=== PATIENT | female | born 1970 | race Caucasian/White ===

== ENCOUNTER → 2016-10-02 | Outpatient (CLI) | payer MEDICARE, OTHER ==
--- NOTE | 2016-10-02 14:10 | CT ---
EXAMINATION TYPE: CT brain wo con DATE OF EXAM: 10/02/2016 1:42 PM COMPARISON: NONE HISTORY: 45-year-old female with headache, sudden onset TECHNIQUE: Examination was done in axial plane without intravenous contrast. Coronal and sagittal reconstructio ns performed. CT DLP: 1081.60 mGycm Automated exposure control for dose reduction was used. FINDINGS: There is no evidence of acute intracranial hemorrhage, acute ischemic changes, mass, mass-effect, or extra-axial fluid collection. There is no effacement of cerebral sulci or basal subarachnoid cister ns. There is no hydrocephalus. There is no midline shift. Mir-white matter distinction is preserv ed. Partially empty sella. Incidental megacisterna magna. There is mild generalized supratentorial volume loss with redemonstrated areas of encephalomalacia within the left greater than right temporal lobes . Mild mucosal thickening along the floors of the maxillary sinuses. Mastoid air cells are well pneumat ized. Orbits and globes are intact. IMPRESSION: No acute intracranial abnormality seen. Similar mild generalized atrophy and areas of encephalomalaci a within the left greater than right temporal lobe suggesting prior vascular or traumatic insults.
== END | disposition home or self-care (01) ==
LOC: RADCTMAIN 13:13
PROVIDERS: ATTEND Family Medicine
DX: G31.9 Degenerative disease of nervous system, unspecified (principal); G93.89 Other specified disorders of brain
CPT/HCPCS: 70450

== ENCOUNTER 2017-10-17 16:11 | Emergency (ER) | payer MEDICARE, OTHER ==
[2017-10-17 16:32] VITALS: BP 135/72; PULSE 82; RESP 20; TEMP 97.6
[2017-10-17] MEDS ORDERED: KETOROLAC 30 MG/ML 1 ML VIAL IM STA (17:28)
--- NOTE | 2017-10-17 17:38 | ED ---
General Adult HPI - General Chief complaint: Headache Stated complaint: Back Pain, Head Pain Time Seen by Provider: 10/17/17 16:42 Source: patient Mode of arrival: ambulatory Limitations: no limitations - History of Present Illness Initial comments: patient is a 46 year old female presents with a chief complaint of a headache for 2 days. 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 The patient walks with a cane at baseline. The patient states that over the last 2 days, headache is gotten gradually worse. She describes a frontal headache that feels a pressure. There are no aggravating or alleviating factors. Timing is constant. On initial exam, patient is tearful, when questioned about why she is crying the patient states that she "wants things to be how they used to be". She further states that she has been depressed recently because her and her daughters do not along. The patient denies any suicidal or homicidal ideations at this time. - Related Data Home Medications Medication Instructions Recorded Confirmed Atorvastatin [Lipitor] 20 mg PO HS 07/23/14 10/17/17 Hydrochlorothiazide [Hydrodiuril] 50 mg PO DAILY 07/23/14 10/17/17 Dextroamphetamine/Amphetamine 20 mg PO DAILY 10/17/17 10/17/17 [Adderall] Potassium Chloride [Klor-Con 20] 20 meq PO DAILY 10/17/17 10/17/17 levETIRAcetam [Keppra] 500 mg PO DAILY 10/17/17 10/17/17 Previous Rx's Medication Instructions Recorded Fluticasone Nasal Bowman [Flonase 2 spr EA NOSTRIL DAILY #1 bottle 10/17/17 Nasal Bowman] Naproxen 500 mg PO BID #20 tablet 10/17/17 Allergies Allergy/AdvReac Type Severity Reaction Status Date / Time No Known Allergies Allergy Verified 10/17/17 17:46 Review of Systems ROS Statement: Those systems with pertinent positive or pertinent negative responses have been documented in the HPI. ROS Other: All systems not noted in ROS Statement are negative. Neurological: Reports: headache, abnormal gait (patient walks with a cane secondary to a traumatic brain injury) Past Medical History Past Medical History: Chest Pain / Angina, COPD, CVA/TIA, Memory Impairment, Neurologic Disorder, Seizure Disorder Additional Past Medical History / Comment(s): Pt has history of brain injury following fall down flight of stairs in 2010.States she had a stroke following the brain injury. had rt sided weakness.in december 2013 in with atypical c/p-neg cardiac workup. pt states is on seizure meds, but has never had a seizure. History of Any Multi-Drug Resistant Organisms: None Reported Past Surgical History: Section, Tonsillectomy, Tubal Ligation Additional Past Surgical History / Comment(s): trach and reversal Past Anesthesia/Blood Transfusion Reactions: No Reported Reaction Past Psychological History: Anxiety Smoking Status: Current every day smoker Past Alcohol Use History: None Reported Past Drug Use History: None Reported General Exam Limitations: no limitations General appearance: alert, in no apparent distress Head exam: Present: atraumatic, normocephalic Eye exam: Present: normal appearance ENT exam: Present: mucous membranes moist, TM's normal bilaterally, other ( patient has rhinorrhea, and tenderness to palpation of the frontal sinuses) Neck exam: Present: normal inspection Respiratory exam: Present: normal lung sounds bilaterally. Absent: respiratory distress Cardiovascular Exam: Present: regular rate, normal rhythm GI/Abdominal exam: Present: soft. Absent: distended, tenderness Rectal exam: Present: deferred Back exam: Present: normal inspection Neurological exam: Present: alert, oriented X3, other (patient is somewhat limited with gait however she is able to do so in the exam room without assistance. Strength and sensation is equal in bilateral upper and lower extremities. Neuro exam is nonfocal) Psychiatric exam: Present: normal affect, depressed Skin exam: Present: warm, dry, intact Course Vital Signs 10/17/17 16:28 Temperature 97.6 F Pulse Rate 82 Respiratory 20 Rate Blood Pressure 135/72 O2 Sat by Pulse 100 Oximetry Medical Decision Making - Medical Decision Making patient is a 46-year-old female presents with chief complaint headache 2 days. On initial evaluation, vital signs are stable, patient is an minor distress secondary to pain. History of physical examination are most consistent with sinus headache as patient does have some rhinorrhea as well. There is some erythema of the nasal turbinates. Patient has tenderness to palpation of the frontal sinuses. Further discussion with the patient leads me to believe that the patient is depressed. She does not have any overt suicidal or homicidal intentions however the patient is very tearful on exam. 7:04 PM Patient was evaluated by EPS nurse. The decision was made to have the patient follow up outpatient for her symptoms of depression. This time it do not believe the patient is a danger to herself or others around her. Regarding the patient's headache, this is likely a viral sinusitis. She was prescribed Flonase, naproxen. Patient was instructed to follow up with primary care or return to the emergency department if her symptoms worsen or change in any way. Disposition Clinical Impression: Sinusitis Disposition: HOME SELF-CARE Condition: Good Instructions: Acute Headache (ED), Sinusitis (ED) Prescriptions: Fluticasone Nasal Bowman [Flonase Nasal Bowman] 2 spr EA NOSTRIL DAILY #1 bottle Naproxen 500 mg PO BID #20 tablet Referrals: Chris Bocanegra MD [Primary Care Provider] - 1-2 days
== END 2017-10-17 19:20 | disposition home or self-care (01) ==
LOC: EEVIPCON 16:11 → EC 16:11
DX: J32.9 Chronic sinusitis, unspecified (principal); F32.9 Major depressive disorder, single episode, unspecified; G40.909 Epilepsy, unspecified, not intractable, without status epilepticus; F17.200 Nicotine dependence, unspecified, uncomplicated; Z86.73 Personal history of transient ischemic attack (TIA), and cerebral infarction without residual deficits; Z79.899 Other long term (current) drug therapy
CPT/HCPCS: 99284; 96372; 82075; J1885

== ENCOUNTER → 2018-04-26 | Outpatient (CLI) | payer MEDICARE, OTHER ==
--- NOTE | 2018-04-26 10:48 | XR ---
EXAMINATION TYPE: XR lumbosacral spine min 4V DATE OF EXAM: 04/26/2018 CLINICAL HISTORY: Low back pain TECHNIQUE: Frontal, lateral, and oblique images of the lumbar spine are obtained. COMPARISON: None FINDINGS: There are 5 lumbar type vertebral bodies identified. The lumbar spine shows dextroconvex scoliosis centered at L3-L4 level without evidence of acute fracture or dislocation. Vertebral body h eights and disk space heights are within normal limits. Mild to moderate multilevel anterior spurring most prominent superior L4 endplate is noted. The oblique images appear within normal limits. Ther e is overlying umbrella filter in the IVC and right L1-L2 level. Cholecystectomy clips are noted. IMPRESSION: As above .
== END | disposition home or self-care (01) ==
LOC: RADXRMAIN 09:34
PROVIDERS: ATTEND Family Medicine
DX: M41.9 Scoliosis, unspecified (principal); M46.06 Spinal enthesopathy, lumbar region; Z98.890 Other specified postprocedural states
CPT/HCPCS: 72110

== ENCOUNTER → 2018-08-30 | Outpatient (CLI) | payer MEDICARE, OTHER ==
--- NOTE | 2018-08-30 12:11 | XR ---
EXAMINATION TYPE: XR scoliosis survey DATE OF EXAM: 08/30/2018 COMPARISON: 04/26/2018 HISTORY: Check for scoliosis. Back pain. TECHNIQUE: Frontal and lateral views of the thoracolumbar spine were obtained FINDINGS: As seen on the prior exam of 04/26/2018 there is a dextroconvex scoliosis of the lumbar spin e again centered at L3-L4. This is not a rotatory with a Browne angle of 8 degrees. Inferior vena cava filter is incidentally noted. Moderate multilevel degenerative changes of both the thoracolumbar and lumbosacral spine are present. No focal consolidation is seen within the lungs. No hemivertebrae are identified. No compression deformities within the thoracic or lumbar spine. Bowel gas pattern is nono bstructive. IMPRESSION: Redemonstration of a mild dextroscoliotic curvature of the lumbar spine with a Browne angle 8 degrees and moderate multilevel degenerative change of both the thoracic and lumbar spine.
== END | disposition home or self-care (01) ==
LOC: RADXRMAIN 09:34
PROVIDERS: ATTEND Family Medicine
DX: M41.86 Other forms of scoliosis, lumbar region (principal); M47.815 Spondylosis without myelopathy or radiculopathy, thoracolumbar region
CPT/HCPCS: 72082

== ENCOUNTER 2020-02-29 15:11 | Emergency (ER) | payer MEDICARE, OTHER ==
[2020-02-29] MEDS ORDERED: SODIUM CHLORIDE 0.9% 1,000 ML IV ONE (16:01)
[2020-02-29 16:11] LABS: Basophils % (A) 0 %; Eosinophils # (A) 0.2 k/uL (0-0.7); Eosinophils % (A) 2 %; HCT 39.3 % (34.0-46.0); HGB 12.7 gm/dL (11.4-16.0); Lymphocytes # (A) 2.9 k/uL (1.0-4.8); Lymphocytes % (A) 31 %; MCHC 32.3 g/dL (31.0-37.0); MCV 92.7 fL (80.0-100.0); Mean Platelet Volume 7.7; Monocytes # (A) 0.5 k/uL (0-1.0); Monocytes % (A) 6 %; Neutrophils # (A) 5.5 k/uL (1.3-7.7); Neutrophils % (A) 59 %; Platelet Count 257 k/uL (150-450); RBC 4.24 m/uL (3.80-5.40); RDW 13.9 % (11.5-15.5); WBC 9.3 k/uL (3.8-10.6)
[2020-02-29 16:15] LABS: Appearance,Urine Clear (Clear); Bacteria,Urine Few /hpf; Bilirubin,Urine Negative (Negative); Blood,Urine Negative (Negative); Color,Urine Yellow; Glucose,Urine (UA) Negative (Negative); Hyaline Casts,Urine 1 /lpf (0-2); Ketones,Urine Negative (Negative); Leukocyte Esterase,Urine Small (Negative); Mucus,Urine Moderate /hpf; Nitrite,Urine Negative (Negative); Protein,Urine Trace (Negative); RBC,Urine 2 /hpf (0-5); Specific Gravity,Urine 1.029 (1.001-1.035); Squamous Epithelial Cell,Urine 2 /hpf (0-4); WBC,Urine 5 /hpf (0-5)
[2020-02-29 16:20] LABS: ALT 26 U/L (4-34); AST 23 U/L (14-36); African American GFR (CKD) >90 (>60 ml/min/1.73 sqM); Albumin 4.1 g/dL (3.5-5.0); Alkaline Phosphatase 86 U/L (38-126); Anion Gap 8 mmol/L; Blood Urea Nitrogen 18 mg/dL (7-17); Calcium 9.4 mg/dL (8.4-10.2); Carbon Dioxide 28 mmol/L (22-30); Chloride 103 mmol/L (98-107); Creatine Kinase 88 U/L (30-135); Glucose 97 mg/dL (74-99); Non-African American GFR(CKD) >90 (>60 ml/min/1.73 sqM); Potassium 3.7 mmol/L (3.5-5.1); Sodium 139 mmol/L (137-145); Total Bilirubin 0.2 mg/dL (0.2-1.3); Total Protein 7.2 g/dL (6.3-8.2)
[2020-02-29 16:29] LABS: INR 0.9 (<1.2); Partial Thromboplastin Time 23.3 sec (22.0-30.0); Prothrombin Time 9.4 sec (9.0-12.0)
--- NOTE | 2020-02-29 16:35 | CT ---
EXAMINATION TYPE: CT brain wo con DATE OF EXAM: 02/29/2020 COMPARISON: 10/02/2016 HISTORY: 49-year-old female Weakness, hx of stroke TECHNIQUE: Examination was done in axial plane without intravenous contrast. Coronal and sagittal r econstructions performed. CT DLP: 1137.4 mGycm Automated exposure control for dose reduction was used. FINDINGS: There is no evidence of acute intracranial hemorrhage, acute ischemic changes, mass, mass-effect, or extra-axial fluid collection. There is no effacement of cerebral sulci or basal subarachnoid cister ns. There is no hydrocephalus. There is no midline shift. Mir-white matter distinction is preserv ed. Paranasal sinuses show mild mucosal thickening anterior left ethmoid air cells. Mastoid air cells are well pneumatized. Orbits and globes are intact. Redemonstrated is encephalomalacia within the left temporal lobe. Smaller areas in the right temporal lobe. Some focal hypodensity in the subcortical region of the right frontal lobe is also redemonstra gabe. Partially empty sella. Stable sessile ossification measuring 1.4 cm along the anterior left frontal i nner table of the calvarium. IMPRESSION: Redemonstrated chronic left temporal lobe encephalomalacia and smaller areas within the right tempora l lobe from previous vascular or traumatic insult. No acute intracranial abnormality seen.
--- NOTE | 2020-02-29 16:37 | XR ---
EXAMINATION TYPE: XR chest 2V DATE OF EXAM: 02/29/2020 COMPARISON: 10/31/2014 HISTORY: 49-year-old female with weakness TECHNIQUE: AP and lateral views FINDINGS: Heart upper limits of normal in size. Large patient body habitus with hazy densities over the lungs. Aorta and pulmonary vasculature within normal limits. No consolidation or pleural effusion. IMPRESSION: Large patient body habitus casting hazy densities. No definite acute process allowing for this limita tion.
[2020-02-29] MEDS ORDERED: HYDROcodone/APAP 5-325MG 1 EACH TAB PO STA (17:58)
--- NOTE | 2020-02-29 17:58 | ED ---
Weakness HPI - General Chief complaint: Weakness Stated complaint: right side weakness/headache Time Seen by Provider: 02/29/20 15:15 Source: patient Mode of arrival: ambulatory Limitations: no limitations - History of Present Illness Initial comments: The patient is a 49-year-old female with past history of traumatic brain injury and chronic right-sided weakness present to emergency Department with reported presyncope and generalized weakness. The patient states that she was working outside in the yard all day and does believe that she got dehydrated. States that she came into the house and had mild headache therefore she took a Tylenol. Patient did not realize it was Tylenol PM. Afterward she states she began feeling very fatigued and had a friend or return to the emergency room for evaluation. She denies any new unilateral weakness. Does admit to generalized weakness. Denies vertiginous symptoms but admits to presyncope. No nausea or vomiting. Denies chest pain or shortness of breath. No abdominal pain. Denies fevers or chills. No changes in her bowel or bladder habits. Denies previous history of cardiac disease. There are no alleviating, precipitating or modifying factors - Related Data Home Medications Medication Instructions Recorded Confirmed Hydrochlorothiazide [Hydrodiuril] 50 mg PO DAILY 07/23/14 03/01/20 Dextroamphetamine/Amphetamine 20 mg PO DAILY 10/17/17 03/01/20 [Adderall] levETIRAcetam [Keppra] 500 mg PO DAILY 10/17/17 03/01/20 ARIPiprazole [Abilify] 5 mg PO HS 02/29/20 03/01/20 Potassium Chloride 10 meq PO DAILY 02/29/20 03/01/20 Umeclidinium Brm/Vilanterol Tr 1 puff INHALATION RT-DAILY 02/29/20 03/01/20 [Anoro Ellipta 62.5-25 Mcg INH] Previous Rx's Medication Instructions Recorded Acetaminophen Tab [Tylenol] 650 mg PO Q6HR PRN tab 03/03/20 Aspirin 81 mg PO DAILY chew 03/03/20 Allergies Allergy/AdvReac Type Severity Reaction Status Date / Time cat dander Allergy Rash/Hives Verified 03/01/20 17:33 tomato Allergy Nausea Verified 03/01/20 17:33 Review of Systems ROS Statement: Those systems with pertinent positive or pertinent negative responses have been documented in the HPI. ROS Other: All systems not noted in ROS Statement are negative. Past Medical History Past Medical History: Chest Pain / Angina, COPD, CVA/TIA, Memory Impairment, Neurologic Disorder, Seizure Disorder Additional Past Medical History / Comment(s): Pt has history of brain injury following fall down flight of stairs in 2010.States she had a stroke following the brain injury. had rt sided weakness.in december 2013 in with atypical c/p-neg cardiac workup. pt states is on seizure meds, but has never had a seizure. History of Any Multi-Drug Resistant Organisms: None Reported Past Surgical History: Section, Tonsillectomy, Tubal Ligation Additional Past Surgical History / Comment(s): trach and reversal Past Anesthesia/Blood Transfusion Reactions: No Reported Reaction Past Psychological History: Anxiety Smoking Status: Current every day smoker Past Alcohol Use History: None Reported Past Drug Use History: None Reported General Exam Limitations: no limitations General appearance: alert, in no apparent distress Head exam: Present: atraumatic, normocephalic, normal inspection Eye exam: Present: normal appearance, PERRL, EOMI. Absent: scleral icterus, conjunctival injection, periorbital swelling ENT exam: Present: normal exam, mucous membranes moist Neck exam: Present: normal inspection. Absent: tenderness, meningismus, lymphadenopathy Respiratory exam: Present: normal lung sounds bilaterally. Absent: respiratory distress, wheezes, rales, rhonchi, stridor Cardiovascular Exam: Present: regular rate, normal rhythm, normal heart sounds. Absent: systolic murmur, diastolic murmur, rubs, gallop, clicks GI/Abdominal exam: Present: soft, normal bowel sounds. Absent: distended, tenderness, guarding, rebound, rigid Extremities exam: Present: normal inspection, full ROM, normal capillary refill, other (4/5 muscle strength right leg. 5/5 right arm, left arm, left leg. Weakness in right leg is chronic. ). Absent: tenderness, pedal edema, joint swelling, calf tenderness Back exam: Present: normal inspection Neurological exam: Present: alert, oriented X3, CN II-XII intact Psychiatric exam: Present: normal affect, normal mood Skin exam: Present: warm, dry, intact, normal color. Absent: rash Course Vital Signs 02/29/20 02/29/20 02/29/20 15:13 17:38 18:14 Temperature 98.2 F 98.1 F Pulse Rate 81 71 Respiratory 18 16 Rate Blood Pressure 123/76 117/74 Blood Pressure 113/98 [Left Arm Sitting] Blood Pressure 132/74 [Left Arm Standing] Blood Pressure 113/74 [Left Arm Supine] O2 Sat by Pulse 98 100 Oximetry 02/29/20 18:21 Temperature Pulse Rate 76 Respiratory 16 Rate Blood Pressure 132/89 Blood Pressure [Left Arm Sitting] Blood Pressure [Left Arm Standing] Blood Pressure [Left Arm Supine] O2 Sat by Pulse 99 Oximetry EKG Findings - EKG Comments: EKG Findings:: EKG demonstrates a normal sinus rhythm with a ventricular rate of 69. SD interval 138. QRS 86. QTC of 454. No acute ST segment elevations or depressions concerning for ischemic changes Medical Decision Making - Medical Decision Making Upon arrival patient was placed into room 2. A thorough history and physical was performed. Peripheral IV was established. Laboratory studies were conducted. Because the patient's previous history of traumatic brain injury did recommend a CT of the patient's brain as well as a chest x-ray. 12-lead EKG is unremarkable. Laboratory studies demonstrate small leukocytosis and few bacteria in her urine. CT the patient's brain demonstrates redemonstrated chronic left temporal lobe encephalomalacia with smaller areas within the right temporal lobe from previous vascular traumatic insult with no acute intracranial abnormality. Chest x-ray demonstrates no definite acute process. The patient is reevaluated and feels improved after a liter bolus of normal saline. She is requesting something for her chronic pain and she did miss her dose of home pain medications. The patient is provided with a [place]. Orthostatics were obtained and are negative. At this time discussed diagnosis, differential and treatment options. The patient states she feels improved and is completely home. She is instructed to follow-up with her primary care physician in 2-4 days. Return to the emergency department for any new or worsening symptoms. Patient was in agreement treatment plan she is discharged in stable condition - Lab Data Result diagrams: 02/29/20 15:43 02/29/20 15:43 Lab Results 02/29/20 02/29/20 02/29/20 Range/Units 15:43 15:43 15:43 WBC 9.3 (3.8-10.6) k/uL RBC 4.24 (3.80-5.40) m/uL Hgb 12.7 (11.4-16.0) gm/dL Hct 39.3 (34.0-46.0) % MCV 92.7 (80.0-100.0) fL MCH 30.0 (25.0-35.0) pg MCHC 32.3 (31.0-37.0) g/dL RDW 13.9 (11.5-15.5) % Plt Count 257 (150-450) k/uL Neutrophils % 59 % Lymphocytes % 31 % Monocytes % 6 % Eosinophils % 2 % Basophils % 0 % Neutrophils # 5.5 (1.3-7.7) k/uL Lymphocytes # 2.9 (1.0-4.8) k/uL Monocytes # 0.5 (0-1.0) k/uL Eosinophils # 0.2 (0-0.7) k/uL Basophils # 0.0 (0-0.2) k/uL PT 9.4 (9.0-12.0) sec INR 0.9 (<1.2) APTT 23.3 (22.0-30.0) sec Sodium (137-145) mmol/L Potassium (3.5-5.1) mmol/L Chloride (98-107) mmol/L Carbon Dioxide (22-30) mmol/L Anion Gap mmol/L BUN (7-17) mg/dL Creatinine (0.52-1.04) mg/dL Est GFR (CKD-EPI)AfAm (>60 ml/min/1.73 sqM) Est GFR (CKD-EPI)NonAf (>60 ml/min/1.73 sqM) Glucose (74-99) mg/dL Plasma Lactic Acid Tin (0.7-2.0) mmol/L Calcium (8.4-10.2) mg/dL Total Bilirubin (0.2-1.3) mg/dL AST (14-36) U/L ALT (4-34) U/L Alkaline Phosphatase (38-126) U/L Creatine Kinase (30-135) U/L Troponin I (0.000-0.034) ng/mL NT-Pro-B Natriuret Pep pg/mL Total Protein (6.3-8.2) g/dL Albumin (3.5-5.0) g/dL TSH (0.465-4.680) mIU/L Urine Color Yellow Urine Appearance Clear (Clear) Urine pH 6.0 (5.0-8.0) Ur Specific [place] 1.029 (1.001-1.035) Urine Protein Trace H (Negative) Urine Glucose (UA) Negative (Negative) Urine Ketones Negative (Negative) Urine Blood Negative (Negative) Urine Nitrite Negative (Negative) Urine Bilirubin Negative (Negative) Urine Urobilinogen 4.0 (<2.0) mg/dL Ur Leukocyte Esterase Small H (Negative) Urine RBC 2 (0-5) /hpf Urine WBC 5 (0-5) /hpf Ur Squamous Epith Cells 2 (0-4) /hpf Urine Bacteria Few H (None) /hpf Hyaline Casts 1 (0-2) /lpf Urine Mucus Moderate H (None) /hpf 02/29/20 02/29/20 02/29/20 Range/Units 15:43 15:43 15:43 WBC (3.8-10.6) k/uL RBC (3.80-5.40) m/uL Hgb (11.4-16.0) gm/dL Hct (34.0-46.0) % MCV (80.0-100.0) fL MCH (25.0-35.0) pg MCHC (31.0-37.0) g/dL RDW (11.5-15.5) % Plt Count (150-450) k/uL Neutrophils % % Lymphocytes % % Monocytes % % Eosinophils % % Basophils % % Neutrophils # (1.3-7.7) k/uL Lymphocytes # (1.0-4.8) k/uL Monocytes # (0-1.0) k/uL Eosinophils # (0-0.7) k/uL Basophils # (0-0.2) k/uL PT (9.0-12.0) sec INR (<1.2) APTT (22.0-30.0) sec Sodium 139 (137-145) mmol/L Potassium 3.7 (3.5-5.1) mmol/L Chloride 103 (98-107) mmol/L Carbon Dioxide 28 (22-30) mmol/L Anion Gap 8 mmol/L BUN 18 H (7-17) mg/dL Creatinine 0.65 (0.52-1.04) mg/dL Est GFR (CKD-EPI)AfAm >90 (>60 ml/min/1.73 sqM) Est GFR (CKD-EPI)NonAf >90 (>60 ml/min/1.73 sqM) Glucose 97 (74-99) mg/dL Plasma Lactic Acid Tin 1.2 (0.7-2.0) mmol/L Calcium 9.4 (8.4-10.2) mg/dL Total Bilirubin 0.2 (0.2-1.3) mg/dL AST 23 (14-36) U/L ALT 26 (4-34) U/L Alkaline Phosphatase 86 (38-126) U/L Creatine Kinase 88 (30-135) U/L Troponin I <0.012 (0.000-0.034) ng/mL NT-Pro-B Natriuret Pep pg/mL Total Protein 7.2 (6.3-8.2) g/dL Albumin 4.1 (3.5-5.0) g/dL TSH 1.380 (0.465-4.680) mIU/L Urine Color Urine Appearance (Clear) Urine pH (5.0-8.0) Ur Specific [place] (1.001-1.035) Urine Protein (Negative) Urine Glucose (UA) (Negative) Urine Ketones (Negative) Urine Blood (Negative) Urine Nitrite (Negative) Urine Bilirubin (Negative) Urine Urobilinogen (<2.0) mg/dL Ur Leukocyte Esterase (Negative) Urine RBC (0-5) /hpf Urine WBC (0-5) /hpf Ur Squamous Epith Cells (0-4) /hpf Urine Bacteria (None) /hpf Hyaline Casts (0-2) /lpf Urine Mucus (None) /hpf 02/29/20 Range/Units 15:43 WBC (3.8-10.6) k/uL RBC (3.80-5.40) m/uL Hgb (11.4-16.0) gm/dL Hct (34.0-46.0) % MCV (80.0-100.0) fL MCH (25.0-35.0) pg MCHC (31.0-37.0) g/dL RDW (11.5-15.5) % Plt Count (150-450) k/uL Neutrophils % % Lymphocytes % % Monocytes % % Eosinophils % % Basophils % % Neutrophils # (1.3-7.7) k/uL Lymphocytes # (1.0-4.8) k/uL Monocytes # (0-1.0) k/uL Eosinophils # (0-0.7) k/uL Basophils # (0-0.2) k/uL PT (9.0-12.0) sec INR (<1.2) APTT (22.0-30.0) sec Sodium (137-145) mmol/L Potassium (3.5-5.1) mmol/L Chloride (98-107) mmol/L Carbon Dioxide (22-30) mmol/L Anion Gap mmol/L BUN (7-17) mg/dL Creatinine (0.52-1.04) mg/dL Est GFR (CKD-EPI)AfAm (>60 ml/min/1.73 sqM) Est GFR (CKD-EPI)NonAf (>60 ml/min/1.73 sqM) Glucose (74-99) mg/dL Plasma Lactic Acid Tin (0.7-2.0) mmol/L Calcium (8.4-10.2) mg/dL Total Bilirubin (0.2-1.3) mg/dL AST (14-36) U/L ALT (4-34) U/L Alkaline Phosphatase (38-126) U/L Creatine Kinase (30-135) U/L Troponin I (0.000-0.034) ng/mL NT-Pro-B Natriuret Pep 83 pg/mL Total Protein (6.3-8.2) g/dL Albumin (3.5-5.0) g/dL TSH (0.465-4.680) mIU/L Urine Color Urine Appearance (Clear) Urine pH (5.0-8.0) Ur Specific [place] (1.001-1.035) Urine Protein (Negative) Urine Glucose (UA) (Negative) Urine Ketones (Negative) Urine Blood (Negative) Urine Nitrite (Negative) Urine Bilirubin (Negative) Urine Urobilinogen (<2.0) mg/dL Ur Leukocyte Esterase (Negative) Urine RBC (0-5) /hpf Urine WBC (0-5) /hpf Ur Squamous Epith Cells (0-4) /hpf Urine Bacteria (None) /hpf Hyaline Casts (0-2) /lpf Urine Mucus (None) /hpf Disposition Clinical Impression: Pre-syncope Disposition: HOME SELF-CARE Condition: Stable Instructions (If sedation given, give patient instructions): Near Syncope (ED) Additional Instructions: Please follow up with your primary care doctor. Call tomorrow to make an appointment. Return to the emergency room for any new or worsening symptoms Is patient prescribed a controlled substance at d/c from ED?: No Referrals: Chris Bocanegra MD [Primary Care Provider] - 1-2 days Time of Disposition: 17:58
[2020-02-29 18:15] VITALS: RESP 16; TEMP 98.1
[2020-02-29 18:22] VITALS: BP 132/89; PULSE 76
== END 2020-02-29 18:22 | disposition home or self-care (01) ==
LOC: EC 15:11
DX: G93.89 Other specified disorders of brain (principal); D72.829 Elevated white blood cell count, unspecified; G89.29 Other chronic pain; R55 Syncope and collapse; R53.1 Weakness; F41.9 Anxiety disorder, unspecified; I25.119 Atherosclerotic heart disease of native coronary artery with unspecified angina pectoris; J44.9 Chronic obstructive pulmonary disease, unspecified; G40.909 Epilepsy, unspecified, not intractable, without status epilepticus; I25.2 Old myocardial infarction; F17.200 Nicotine dependence, unspecified, uncomplicated; Z79.899 Other long term (current) drug therapy; Z91.048 Other nonmedicinal substance allergy status; Z91.018 Allergy to other foods; Z86.73 Personal history of transient ischemic attack (TIA), and cerebral infarction without residual deficits
CPT/HCPCS: 36415; 70450; 71046; 80053; 81001; 82550; 83605; 83880; 84443; 84484; 85025; 85610; 85730; 93005; 96360; 99285

== ENCOUNTER 2020-03-01 16:17 | Inpatient (IN) | payer MEDICARE, OTHER ==
[2020-03-01] MEDS: SODIUM CHLORIDE 0.9% 1,000 ML IV SCH (21:16)
[2020-03-01] MEDS: ARIPiprazole 5 MG TAB PO SCH (21:17)
[2020-03-01] MEDS: KETOROLAC 30 MG/ML 1 ML VIAL IVP PRN (21:17)
[2020-03-02] MEDS: SODIUM CHLORIDE 0.9% 1,000 ML IV SCH ×2 (06:13→10:40)
--- NOTE | 2020-03-02 07:38 | XR ---
EXAMINATION TYPE: XR chest 1V portable DATE OF EXAM: 03/02/2020 CLINICAL HISTORY: Difficulty breathing and chest pain. TECHNIQUE: Single AP portable frontal view of the chest is obtained. COMPARISON: Chest x-ray from [address] chest March 13, 2014. FINDINGS: Persistent elevated and slightly eventrated right hemidiaphragm. Mild underlying emphysema tous change without new suspicious focal airspace opacity, pleural effusion, or pneumothorax seen jairo aterally. Cardiac silhouette size stable and within normal limits. Osseous structures are intact. IMPRESSION: Overall stable findings, mild chronic emphysematous change without acute pulmonary proc ess.
[2020-03-02 07:56] LABS: Basophils % (A) 0 %; Eosinophils # (A) 0.2 k/uL (0-0.7); Eosinophils % (A) 2 %; HCT 36.6 % (34.0-46.0); HGB 12.3 gm/dL (11.4-16.0); Lymphocytes # (A) 2.4 k/uL (1.0-4.8); Lymphocytes % (A) 33 %; MCHC 33.7 g/dL (31.0-37.0); MCV 95.1 fL (80.0-100.0); Mean Platelet Volume 8.3; Monocytes # (A) 0.4 k/uL (0-1.0); Monocytes % (A) 6 %; Neutrophils % (A) 57 %; Platelet Count 241 k/uL (150-450); RBC 3.84 m/uL (3.80-5.40); RDW 13.9 % (11.5-15.5); WBC 7.1 k/uL (3.8-10.6)
[2020-03-02 08:05] LABS: Creatine Kinase 87 U/L (30-135)
[2020-03-02 08:07] LABS: ALT 24 U/L (4-34); AST 23 U/L (14-36); African American GFR (CKD) >90 (>60 ml/min/1.73 sqM); Albumin 3.4 g/dL (3.5-5.0); Alkaline Phosphatase 57 U/L (38-126); Anion Gap 7 mmol/L; Blood Urea Nitrogen 12 mg/dL (7-17); Calcium 8.6 mg/dL (8.4-10.2); Carbon Dioxide 26 mmol/L (22-30); Chloride 107 mmol/L (98-107); Glucose 94 mg/dL (74-99); Non-African American GFR(CKD) >90 (>60 ml/min/1.73 sqM); Potassium 4.3 mmol/L (3.5-5.1); Sodium 140 mmol/L (137-145); Total Bilirubin 0.3 mg/dL (0.2-1.3); Total Protein 6.3 g/dL (6.3-8.2)
[2020-03-02 08:18] LABS: Creatine Kinase MB 0.6 ng/mL (0.0-2.4); Troponin I <0.012 ng/mL (0.000-0.034)
[2020-03-02] MEDS: HYDROCHLOROTHIAZIDE 50 MG TAB PO SCH (08:35)
[2020-03-02] MEDS: POTASSIUM CHLORIDE ER 10 MEQ TAB.ER.PRT PO SCH (08:35)
[2020-03-02] MEDS: levETIRAcetam 500 MG TAB PO SCH (08:35)
[2020-03-02] MEDS: NON FORMULARY DRUG (Dextroamphetamine/Amphetamine [Adderall] 20 MG) PO SCH (08:36)
[2020-03-02 09:10] LABS: Appearance,Urine Clear (Clear); Bilirubin,Urine Negative (Negative); Blood,Urine Negative (Negative); Color,Urine Yellow; Glucose,Urine (UA) Negative (Negative); Ketones,Urine Negative (Negative); Leukocyte Esterase,Urine Negative (Negative); Nitrite,Urine Negative (Negative); Protein,Urine Negative (Negative); Specific Gravity,Urine 1.013 (1.001-1.035); Urobilinogen,Urine <2.0 mg/dL (<2.0)
[2020-03-02] MEDS: IPRATROPIUM 0.5 MG/2.5 ML NEBU INHALATION SCH ×4 (09:16→21:26)
[2020-03-02] MEDS: FORMOTEROL FUMARATE 20 MCG/2 ML NEBU INHALATION SCH ×2 (09:16→21:26)
--- NOTE | 2020-03-02 09:32 | HP ---
HISTORY AND PHYSICAL A 49-year-old white female comes in today with some feeling of lightheaded, dizziness with increased weakness to her right arm, right leg, worse than she has ever had it before, feel altered and presyncopal, near syncope. She states she may be dehydrated. She feels extremely weak and has some heaviness in her chest. She is admitted. Cardiology has been called as well as Neurology for worsening right-sided weakness. CAT scan of the head done the day before in the emergency room was negative for any intracranial bleed, so I am going to order an MRI, await for Neurology. We will do a Keppra level and due multiple labs, going to rehydrate her for dehydration and do cardiac workup and pulmonary workup. HOME MEDICINES: At home she takes Abilify 5 mg at night, Adderall 20 mg daily, Perforomist b.i.d., HydroDIURIL 50 daily, Atrovent q.i.d., Keppra 500 daily, potassium 10 mEq daily. History of encephalomalacia within cranial bleed with right-sided weakness in the past, nicotine addiction, COPD, bipolar, ADD. The 14-point review of systems as mentioned above, otherwise, negative. PHYSICAL EXAMINATION: Temperature 98 to 97, respiratory 16 to 18, O2 is 66 to 73, O2 saturation 98% on room air. Blood pressure 108 to 110/70s to 60. CARDIOVASCULAR: S1, S2. LUNGS: Show mild wheeze x4. HEMATOLOGY: Negative Homans. MUSCULOSKELETAL: She has 4/5 strength in right arm, right leg. ABDOMEN: Soft. Distention, obesity. HEMATOLOGY: Negative Homans. ASSESSMENT: Acute neurologic finding and altered mental status with near presyncopal, suspect dehydration, rehydrate her, do neuro workup for worsening right-sided weakness. She says she feels different than she has are felt before. MRI of the brain. Neurology consult. She has had atypical chest pain this morning in the hospital. We are going to get an EKG and Cardiology consult. Run troponins to check her Keppra level. Please see further orders. MMODL / IJN: [id number] /
[2020-03-02] MEDS: ACETAMINOPHEN TAB 325 MG TAB PO PRN (10:38)
[2020-03-02] MEDS: NICOTINE 14MG/24HR PATCH TRANSDERM SCH (10:38)
--- NOTE | 2020-03-02 12:58 | P.CRDCN ---
History of Present Illness History of present illness: HISTORY OF PRESENTING ILLNESS This is a pleasant 49 year old female past medical history significant for closed head injury, seizure disorder, CVA and COPD. She has no prior history of CAD. We have been asked to see her in consultation for chest pain. She is seen and examined resting comfortably in bed in no acute distress. She states at times she feels a vague discomfort in her chest in the mid-sternal region. Not associated with activity or exertion. She has no associated shortness of breath, dizziness palpitations, nausea or vomiting. Awaiting brain MRI and neurology consult. DIAGNOSTICS EKG reveals sinus mechanism with no acute changes. Chest xray reveals mild emphysematous changes. Laboratory data reviewed, cardiac enzymes negative x1, d-dimer 0.26. Current daily cardiac medications include hydrochlorothiazide 50 mg daily. REVIEW OF SYSTEMS At the time of my exam: CONSTITUTIONAL: Denies fever or chills. CARDIOVASCULAR: Denies chest pain, shortness of breath, orthopnea, PND or palpitations. RESPIRATORY: Denies cough. GASTROINTESTINAL: Denies abdominal pain, diarrhea, constipation, nausea or vomiting. MUSCULOSKELETAL: Denies myalgias. NEUROLOGIC: Complains of generalized weakness and fatigue. Denies numbness, tingling. ENDOCRINE: Denies fatigue, weight change, polydipsia or polyurina. GENITOURINARY: Denies burning, hematuria or urgency with micturation. HEMATOLOGIC: Denies history of anemia or bleeding. PHYSICAL EXAMINATION Blood pressure 110/68 heart rate 72 afebrile and maintaining oxygen saturation on room air CONSTITUTIONAL: No apparent distress. Morbidly obese. HEENT: Head is normocephalic. Pupils are equal, round. Sclerae anicteric. Mucous membranes of the mouth are moist. No JVD. No carotid bruit. CHEST EXAMINATION: Lungs are clear to auscultation. No chest wall tenderness is noted on palpation or with deep breathing. HEART EXAMINATION: Bradycardic. Regular rate and rhythm. S1, S2 heard. No murmurs, gallops or rub. ABDOMEN: Soft, nontender. Positive bowel sounds. EXTREMITIES: 2+ peripheral pulses, no lower extremity edema and no calf tenderness. NEUROLOGIC EXAMINATION: Patient is awake, alert and oriented x3. ASSESSMENT Chest pain, atypical. COPD Hypertension History of seizures Chronic nicotine dependence PLAN Chest pain is atypical and clinically does not appear cardiac in nature. She is symptom free at this time. Ongoing medical and neurology evaluation. We will pursue ongoing cardiac evaluation and testing as an outpatient. Smoking cessation recommended. Follow up with Dr. Glass in the office in 2 weeks. Thank you kindly for this consultation. Nurse Practitioner note has been reviewed, I agree with a documented findings and plan of care. Patient was seen and examined. Past Medical History Past Medical History: Chest Pain / Angina, COPD, CVA/TIA, Memory Impairment, Neurologic Disorder, Seizure Disorder Additional Past Medical History / Comment(s): Pt has history of brain injury following fall down flight of stairs in 2010.States she had a stroke following the brain injury. had rt sided weakness.in december 2013 in with atypical c/p-neg cardiac workup. pt states is on seizure meds, but has never had a seizure. History of Any Multi-Drug Resistant Organisms: None Reported Past Surgical History: Section, Tonsillectomy, Tubal Ligation Additional Past Surgical History / Comment(s): trach and reversal Past Anesthesia/Blood Transfusion Reactions: No Reported Reaction Past Psychological History: Anxiety Additional Psychological History / Comment(s): mood disorder Smoking Status: Current every day smoker Past Alcohol Use History: None Reported Past Drug Use History: None Reported Medications and Allergies Home Medications Medication Instructions Recorded Confirmed Type Hydrochlorothiazide [Hydrodiuril] 50 mg PO DAILY 07/23/14 03/01/20 History Dextroamphetamine/Amphetamine 20 mg PO DAILY 10/17/17 03/01/20 History [Adderall] levETIRAcetam [Keppra] 500 mg PO DAILY 10/17/17 03/01/20 History ARIPiprazole [Abilify] 5 mg PO HS 02/29/20 03/01/20 History Potassium Chloride 10 meq PO DAILY 02/29/20 03/01/20 History Umeclidinium Brm/Vilanterol Tr 1 puff INHALATION RT-DAILY 02/29/20 03/01/20 History [Anoro Ellipta 62.5-25 Mcg INH] Allergies Allergy/AdvReac Type Severity Reaction Status Date / Time cat dander Allergy Rash/Hives Verified 03/01/20 17:33 tomato Allergy Nausea Verified 03/01/20 17:33 Physical Exam Vitals: Vital Signs Temp Pulse Pulse Resp BP Pulse Ox 03/02/20 09:30 72 03/02/20 09:19 76 03/02/20 07:05 97.7 F 65 18 110/68 98 03/02/20 05:00 98.4 F 73 18 109/69 98 03/01/20 21:00 98.4 F 66 18 112/75 96 03/01/20 16:55 98.6 F 78 17 108/72 95 Intake and Output 03/01/20 03/02/20 03/02/20 22:59 06:59 14:59 Intake Total 300 1650 Balance 300 1650 Intake: Intake, IV Titration 1200 Amount Sodium Chloride 0.9% 1, 1200 000 ml @ 100 mls/hr IV . Q10H [facility] Rx#:[id number] Oral 300 450 Other: Voiding Method Toilet Toilet # Voids 1 1 Weight 103.6 kg Results 03/02/20 07:19 03/02/20 07:19 Cardiac Enzymes 03/02/20 03/02/20 Range/Units 07:19 07:19 AST 23 (14-36) U/L CK-MB (CK-2) 0.6 (0.0-2.4) ng/mL Troponin I <0.012 (0.000-0.034) ng/mL CBC 03/02/20 Range/Units 07:19 WBC 7.1 (3.8-10.6) k/uL RBC 3.84 (3.80-5.40) m/uL Hgb 12.3 (11.4-16.0) gm/dL Hct 36.6 (34.0-46.0) % Plt Count 241 (150-450) k/uL Comprehensive Metabolic Panel 03/02/20 Range/Units 07:19 Sodium 140 (137-145) mmol/L Potassium 4.3 (3.5-5.1) mmol/L Chloride 107 (98-107) mmol/L Carbon Dioxide 26 (22-30) mmol/L BUN 12 (7-17) mg/dL Creatinine 0.57 (0.52-1.04) mg/dL Glucose 94 (74-99) mg/dL Calcium 8.6 (8.4-10.2) mg/dL AST 23 (14-36) U/L ALT 24 (4-34) U/L Alkaline Phosphatase 57 (38-126) U/L Total Protein 6.3 (6.3-8.2) g/dL Albumin 3.4 L (3.5-5.0) g/dL Current Medications Generic Name Dose Route Start Last Admin Trade Name Freq PRN Reason Stop Dose Admin Acetaminophen 650 mg 03/02/20 10:21 03/02/20 10:38 Tylenol Tab PO 650 mg Q6HR PRN Administration Fever and/ or Mild Pain Aripiprazole 5 mg 03/01/20 21:00 03/01/20 21:17 Abilify PO 5 mg HS [facility] Administration Formoterol Fumarate 20 mcg 03/02/20 08:00 03/02/20 09:16 Perforomist INHALATION 20 mcg RT-BID [facility] Administration Hydrochlorothiazide 50 mg 03/02/20 09:00 03/02/20 08:35 Hydrodiuril PO 50 mg DAILY [facility] Administration Sodium Chloride 1,000 mls @ 100 mls/hr 03/01/20 18:30 03/02/20 10:40 Saline 0.9% IV 100 mls/hr .Q10H [facility] Administration Ipratropium [place] 0.5 mg 03/02/20 08:00 03/02/20 12:20 Atrovent Nebulized INHALATION 0.5 mg RT-QID [facility] Administration Ketorolac Tromethamine 15 mg 03/01/20 20:53 03/01/20 21:17 Toradol IVP 03/05/20 20:53 15 mg Q6HR PRN Administration Pain Levetiracetam 500 mg 03/02/20 09:00 03/02/20 08:35 Keppra PO 500 mg DAILY [facility] Administration Nicotine 1 patch 03/02/20 09:00 03/02/20 10:38 Habitrol 14mg/24hr Patch TRANSDERM 1 patch DAILY [facility] Administration Non-Formulary Medication 20 mg 03/02/20 09:00 03/02/20 08:36 Dextroamphetamine/Amphetamine [Adderall] PO Not Given DAILY [facility] Potassium Chloride 10 meq 03/02/20 09:00 03/02/20 08:35 K-Dur 10 PO 10 meq DAILY [facility] Administration Intake and Output 03/01/20 03/02/20 03/02/20 22:59 06:59 14:59 Intake Total 300 1650 Balance 300 1650 Intake: Intake, IV Titration 1200 Amount Sodium Chloride 0.9% 1, 1200 000 ml @ 100 mls/hr IV . Q10H [facility] Rx#:[id number] Oral 300 450 Other: Voiding Method Toilet Toilet # Voids 1 1 Weight 103.6 kg 03/02/20 07:19 03/02/20 07:19
[2020-03-02 13:00] LABS: Hemoglobin A1C 5.6 % (4.0-6.0)
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
[2020-03-02] MEDS: ASPIRIN 81 MG PO SCH (18:52)
[2020-03-02] MEDS: KETOROLAC 30 MG/ML 1 ML VIAL IVP PRN (20:05)
[2020-03-02] MEDS: ARIPiprazole 5 MG TAB PO SCH (20:05)
[2020-03-02 21:58] VITALS: RESP 18
[2020-03-03] MEDS: SODIUM CHLORIDE 0.9% 1,000 ML IV SCH ×2 (03:54→10:47)
[2020-03-03 06:19] LABS: ALT 25 U/L (4-34); AST 21 U/L (14-36); African American GFR (CKD) >90 (>60 ml/min/1.73 sqM); Albumin 3.1 g/dL (3.5-5.0); Alkaline Phosphatase 55 U/L (38-126); Anion Gap 4 mmol/L; Blood Urea Nitrogen 12 mg/dL (7-17); Calcium 8.4 mg/dL (8.4-10.2); Carbon Dioxide 27 mmol/L (22-30); Chloride 109 mmol/L (98-107); Cholesterol 178 mg/dL (<200); Glucose 93 mg/dL (74-99); HDL Cholesterol 35 mg/dL (40-60); LDL Cholesterol,Calculated 118 mg/dL (0-99); Non-African American GFR(CKD) >90 (>60 ml/min/1.73 sqM); Potassium 4.3 mmol/L (3.5-5.1); Sodium 140 mmol/L (137-145); Total Bilirubin 0.2 mg/dL (0.2-1.3); Total Protein 5.8 g/dL (6.3-8.2); Triglycerides 124 mg/dL (<150)
[2020-03-03] MEDS: FORMOTEROL FUMARATE 20 MCG/2 ML NEBU INHALATION SCH ×2 (07:33→20:13)
[2020-03-03] MEDS: IPRATROPIUM 0.5 MG/2.5 ML NEBU INHALATION SCH ×4 (07:33→20:13)
[2020-03-03] MEDS: NON FORMULARY DRUG (Dextroamphetamine/Amphetamine [Adderall] 20 MG) PO SCH (09:25)
[2020-03-03] MEDS: ASPIRIN 81 MG PO SCH (09:28)
[2020-03-03] MEDS: levETIRAcetam 500 MG TAB PO SCH (09:28)
[2020-03-03] MEDS: POTASSIUM CHLORIDE ER 10 MEQ TAB.ER.PRT PO SCH (09:28)
[2020-03-03] MEDS: NICOTINE 14MG/24HR PATCH TRANSDERM SCH (09:29)
[2020-03-03] MEDS: HYDROCHLOROTHIAZIDE 50 MG TAB PO SCH (09:29)
[2020-03-03] MEDS: KETOROLAC 30 MG/ML 1 ML VIAL IVP PRN (09:35)
[2020-03-03 10:38] LABS: Folate, Serum 7.7 ng/mL
[2020-03-03] MEDS ORDERED: SYMBICORT 80-4.5 MCG INHALER INHALATION STA (11:14)
[2020-03-03 11:48] LABS: Creatine Kinase MB 0.7 ng/mL (0.0-2.4); Troponin I <0.012 ng/mL (0.000-0.034)
--- NOTE | 2020-03-03 12:48 | P.PN ---
Subjective Progress Note Date: 03/03/20 This is a pleasant 49 year old female past medical history significant for closed head injury, seizure disorder, CVA and COPD. She was admitted with right- sided weakness. She was also experiencing atypical chest discomfort. She states this is not associated with exertion. She states it is worse when she rolls from [id number] in bed. It cannot be exacerbated with a cough. REVIEW OF SYSTEMS At the time of my exam: CONSTITUTIONAL: Denies fever or chills. CARDIOVASCULAR: Denies shortness of breath, orthopnea, PND or palpitations. Positive for "ache in chest." RESPIRATORY: Denies cough. GASTROINTESTINAL: Denies abdominal pain, diarrhea, constipation, nausea or vomiting. MUSCULOSKELETAL: Denies myalgias. Positive for sternal discomfort. NEUROLOGIC: Complains of generalized weakness and fatigue. Denies numbness, tingling. ENDOCRINE: Denies fatigue, weight change, polydipsia or polyurina. GENITOURINARY: Denies burning, hematuria or urgency with micturation. HEMATOLOGIC: Denies history of anemia or bleeding. PHYSICAL EXAMINATION Blood pressure 110/68 heart rate 72 afebrile and maintaining oxygen saturation on room air CONSTITUTIONAL: No apparent distress. Morbidly obese. HEENT: Head is normocephalic. Pupils are equal, round. Sclerae anicteric. Mucous membranes of the mouth are moist. No JVD. No carotid bruit. CHEST EXAMINATION: Rhoncherous breath sounds. No chest wall tenderness is noted on palpation or with deep breathing. HEART EXAMINATION: Bradycardic. Regular rate and rhythm. S1, S2 heard. No murmurs, gallops or rub. ABDOMEN: Soft, nontender. Positive bowel sounds. EXTREMITIES: 2+ peripheral pulses, no lower extremity edema and no calf tenderness. NEUROLOGIC EXAMINATION: Patient is awake, alert and oriented x3. ASSESSMENT Chest pain, atypical COPD Hypertension History of seizures Chronic nicotine dependence PLAN Chest discomfort is likely musculoskeletal in nature. No further work-up at this time. Objective - Vital Signs Vital signs: Vital Signs Temp 98.4 F 03/03/20 05:00 Pulse 60 03/03/20 11:26 Resp 18 03/03/20 05:00 BP 116/74 03/03/20 10:43 Pulse Ox 98 03/03/20 10:43 Intake & Output 03/02/20 03/03/20 03/03/20 18:59 06:59 18:59 Intake Total 1000 Balance 1000 Intake: Oral 1000 Other: Voiding Method Toilet Toilet # Voids 2 2 - Labs CBC & Chem 7: 03/02/20 07:19 03/03/20 05:58 Labs: Abnormal Lab Results - Last 24 Hours (Table) 03/03/20 Range/Units 05:58 Chloride 109 H (98-107) mmol/L Total Protein 5.8 L (6.3-8.2) g/dL Albumin 3.1 L (3.5-5.0) g/dL LDL Cholesterol, Calc 118 H (0-99) mg/dL HDL Cholesterol 35 L (40-60) mg/dL
--- NOTE | 2020-03-03 13:11 | PN ---
PROGRESS NOTE This is a white female. She appears to be getting better mental status [place] and neurologically. She is going to have an MRI today at 3 o'clock. Still complains of some atypical chest pain. Cardiology cleared yesterday. We are going to repeat EKG, troponin. Give her Symbicort inhaler 2 puffs to see if that helps her breathing and check for musculoskeletal tenderness on chest well palpation by nurse. Lungs essentially mild wheeze. Cardiovascular S1, S2. Abdomen is soft. Strength is 4/5 right lower leg. ASSESSMENT: 1. Chronic obstructive pulmonary disease exacerbation. 2. Costochondritis, likely. 3. Nicotine addiction. 4. Atypical chest pain. Cardiology to resee the patient. Repeat EKG. As mentioned, give 2 puffs Symbicort. Repeat troponins. MMODL / IJN: [id number] /
[2020-03-03 13:53] VITALS: BP 102/64; PULSE 68; TEMP 98.5
--- NOTE | 2020-03-03 16:11 | MR ---
EXAMINATION TYPE: MR brain wo/w con DATE OF EXAM: 03/03/2020 COMPARISON: CT brain 02/29/2020 HISTORY: Rt sided weakness CONTRAST: Standard multiplanar, multisequence MRI departmental protocol utilizing 10 mL intravenous Gadavist ga dolinium contrast. There is some cerebral cortical atrophy. There is no mass effect nor midline shift. There is no sign of intracranial hemorrhage. On the FLAIR images there is a 6 x 3 cm area of increased signal in the g ray-white matter anterior left temporal lobe consistent with infarct. There is 10 mm focus of increas ed signal on the T2 and FLAIR images in the melendez-white matter junction right posterior frontal lobe. There is a similar focus in the cortex right posterior parietal lobe. The calvarium is intact. Brains tem appears intact. Corpus callosum is intact. Sella turcica appears normal. The contrast images show no pathologic enhancement. The diffusion images show no acute abnormality. IMPRESSION: Old left temporal lobe cortical infarct unchanged. Right posterior frontal lobe lacunar infarct uncha nged. Small cortical infarct right parietal lobe. I do not see evidence for an acute ischemic infarct .
[2020-03-03] MEDS: ACETAMINOPHEN TAB 325 MG TAB PO PRN (16:19)
== END 2020-03-03 18:30 | disposition home or self-care (01) | DRG 641 ==
LOC: 5NMEDONC 16:25
PROVIDERS: ADMIT Family Medicine; ATTEND Family Medicine
DX: E86.0 Dehydration (principal); I69.351 Hemiplegia and hemiparesis following cerebral infarction affecting right dominant side; J44.1 Chronic obstructive pulmonary disease with (acute) exacerbation; G93.89 Other specified disorders of brain; F39 Unspecified mood [affective] disorder; G40.909 Epilepsy, unspecified, not intractable, without status epilepticus; E66.01 Morbid (severe) obesity due to excess calories; Z11.59 Encounter for screening for other viral diseases; M94.0 Chondrocostal junction syndrome [Tietze]; I10 Essential (primary) hypertension; F98.8 Other specified behavioral and emotional disorders with onset usually occurring in childhood and adolescence; M54.5 Low back pain; Z68.31 Body mass index [BMI] 31.0-31.9, adult; F17.210 Nicotine dependence, cigarettes, uncomplicated; Z71.6 Tobacco abuse counseling; Z79.899 Other long term (current) drug therapy; Z87.820 Personal history of traumatic brain injury; Z98.891 History of uterine scar from previous surgery; Z90.89 Acquired absence of other organs; Z98.51 Tubal ligation status; Z91.018 Allergy to other foods; Z91.048 Other nonmedicinal substance allergy status
CPT/HCPCS: 70553; 71045; 80053; 80061; 80177; 81003; 82550; 82553; 82607; 82746; 83036; 83735; 84443; 84484; 85025; 85379; 93005; 94640; 95816

== ENCOUNTER 2020-03-31 11:39 | Observation (INO) | payer MEDICARE, OTHER ==
[2020-03-31] MEDS ORDERED: MORPHINE SULFATE 2 MG/ML SYRINGE IVP STA (11:58)
[2020-03-31] MEDS ORDERED: ASPIRIN 81 MG PO STA (11:58)
--- NOTE | 2020-03-31 12:01 | ED ---
General Adult HPI - General Chief complaint: Chest Pain Stated complaint: Chest Pain Source: patient, RN notes reviewed Mode of arrival: EMS Limitations: no limitations - History of Present Illness Initial comments: 49-year-old female with a past medical history of chest pain, COPD, CVA, seizure disorder, right-sided weakness presents to the emergency department for a chief complaint of chest pain. Patient states this has been on and off for about a week now. Patient states she was seen in [facility] emergency room this morning for this chest pain and it had resolved. She was sent home and the pain started again about one hour ago. Patient reports it as a squeezing pain in the center of her chest. She denies alleviating or aggravating factors. She denies radiating pain. She denies shortness of breath. Patient does have a history of every day smoking. She has a history of chest pain as well. Patient was not given aspirin today.Patient has no other complaints at this time including shortness of breath, chest pain, abdominal pain, nausea or vomiting, headache, or visual changes. - Related Data Home Medications Medication Instructions Recorded Confirmed Hydrochlorothiazide [Hydrodiuril] 50 mg PO DAILY 07/23/14 03/31/20 Dextroamphetamine/Amphetamine 20 mg PO DAILY 10/17/17 03/31/20 [Adderall] levETIRAcetam [Keppra] 500 mg PO DAILY 10/17/17 03/31/20 ARIPiprazole [Abilify] 5 mg PO HS 02/29/20 03/31/20 Potassium Chloride 10 meq PO DAILY 02/29/20 03/31/20 Umeclidinium Brm/Vilanterol Tr 1 puff INHALATION RT-DAILY 02/29/20 03/31/20 [Anoro Ellipta 62.5-25 Mcg INH] Albuterol Inhaler [Ventolin Hfa 1 puff INHALATION RT-QID 03/31/20 03/31/20 Inhaler] Previous Rx's Medication Instructions Recorded Aspirin 81 mg PO DAILY chew 03/03/20 Allergies Allergy/AdvReac Type Severity Reaction Status Date / Time cat dander Allergy Rash/Hives Verified 03/31/20 13:44 tomato Allergy Nausea Verified 03/31/20 13:44 Review of Systems ROS Statement: Those systems with pertinent positive or pertinent negative responses have been documented in the HPI. ROS Other: All systems not noted in ROS Statement are negative. Past Medical History Past Medical History: Chest Pain / Angina, COPD, CVA/TIA, Memory Impairment, Neurologic Disorder, Seizure Disorder Additional Past Medical History / Comment(s): Pt has history of brain injury following fall down flight of stairs in 2010.States she had a stroke following the brain injury. had rt sided weakness.in december 2013 in with atypical c/p-neg cardiac workup. pt states is on seizure meds, but has never had a seizure. History of Any Multi-Drug Resistant Organisms: None Reported Past Surgical History: Section, Tonsillectomy, Tubal Ligation Additional Past Surgical History / Comment(s): trach and reversal Past Anesthesia/Blood Transfusion Reactions: No Reported Reaction Past Psychological History: Anxiety Smoking Status: Current every day smoker Past Alcohol Use History: None Reported Past Drug Use History: None Reported General Exam Limitations: no limitations General appearance: alert, in no apparent distress Head exam: Present: atraumatic, normocephalic, normal inspection Eye exam: Present: normal appearance, PERRL, EOMI. Absent: scleral icterus, conjunctival injection, periorbital swelling ENT exam: Present: normal exam, mucous membranes moist Neck exam: Present: normal inspection, full ROM. Absent: tenderness, meningismus, lymphadenopathy Respiratory exam: Present: normal lung sounds bilaterally. Absent: respiratory distress, wheezes, rales, rhonchi, stridor Cardiovascular Exam: Present: regular rate, normal rhythm, normal heart sounds. Absent: systolic murmur, diastolic murmur, rubs, gallop, clicks GI/Abdominal exam: Present: soft, normal bowel sounds. Absent: distended, tenderness, guarding, rebound, rigid Course Vital Signs 03/31/20 03/31/20 03/31/20 11:47 12:00 12:29 Temperature 98.7 F 98.7 F Pulse Rate 65 63 65 Respiratory 18 16 18 Rate Blood Pressure 98/75 O2 Sat by Pulse 95 96 95 Oximetry 03/31/20 13:15 Temperature Pulse Rate 60 Respiratory 16 Rate Blood Pressure 117/76 O2 Sat by Pulse 97 Oximetry Medical Decision Making - Medical Decision Making Vitals are stable. EKG shows a normal sinus rhythm without evidence of ischemia. Patient was discharged home this morning from [facility] for chest pain. Chest pain recurred about an hour prior to arrival. Describes a squeezing pain. History of CVA and smoking disorder. CBC did reveal leukocytosis of 15.3. White hypokalemia at 3.3, replaced orally. Troponin negative. Patient has not had cardiac workup since 2013. Will be admitted for cardiology evaluation interning troponin. - Lab Data Result diagrams: 03/31/20 12:05 03/31/20 12:05 Lab Results 03/31/20 03/31/20 03/31/20 Range/Units 12:05 12:05 12:05 WBC 15.3 H (3.8-10.6) k/uL RBC 3.90 (3.80-5.40) m/uL Hgb 12.4 (11.4-16.0) gm/dL Hct 36.9 (34.0-46.0) % MCV 94.8 (80.0-100.0) fL MCH 31.9 (25.0-35.0) pg MCHC 33.7 (31.0-37.0) g/dL RDW 14.1 (11.5-15.5) % Plt Count 278 (150-450) k/uL Neutrophils % 63 % Lymphocytes % 29 % Monocytes % 6 % Eosinophils % 1 % Basophils % 0 % Neutrophils # 9.5 H (1.3-7.7) k/uL Lymphocytes # 4.4 (1.0-4.8) k/uL Monocytes # 0.9 (0-1.0) k/uL Eosinophils # 0.1 (0-0.7) k/uL Basophils # 0.1 (0-0.2) k/uL PT 9.8 (9.0-12.0) sec INR 0.9 (<1.2) APTT 22.2 (22.0-30.0) sec Sodium 137 (137-145) mmol/L Potassium 3.3 L (3.5-5.1) mmol/L Chloride 104 (98-107) mmol/L Carbon Dioxide 26 (22-30) mmol/L Anion Gap 7 mmol/L BUN 18 H (7-17) mg/dL Creatinine 0.55 (0.52-1.04) mg/dL Est GFR (CKD-EPI)AfAm >90 (>60 ml/min/1.73 sqM) Est GFR (CKD-EPI)NonAf >90 (>60 ml/min/1.73 sqM) Glucose 93 (74-99) mg/dL Calcium 9.1 (8.4-10.2) mg/dL Magnesium 2.0 (1.6-2.3) mg/dL Total Bilirubin 0.3 (0.2-1.3) mg/dL AST 25 (14-36) U/L ALT 39 H (4-34) U/L Alkaline Phosphatase 68 (38-126) U/L Troponin I (0.000-0.034) ng/mL NT-Pro-B Natriuret Pep pg/mL Total Protein 6.6 (6.3-8.2) g/dL Albumin 3.8 (3.5-5.0) g/dL Amylase 33 (30-110) U/L Lipase 44 (23-300) U/L 03/31/20 03/31/20 Range/Units 12:05 12:05 WBC (3.8-10.6) k/uL RBC (3.80-5.40) m/uL Hgb (11.4-16.0) gm/dL Hct (34.0-46.0) % MCV (80.0-100.0) fL MCH (25.0-35.0) pg MCHC (31.0-37.0) g/dL RDW (11.5-15.5) % Plt Count (150-450) k/uL Neutrophils % % Lymphocytes % % Monocytes % % Eosinophils % % Basophils % % Neutrophils # (1.3-7.7) k/uL Lymphocytes # (1.0-4.8) k/uL Monocytes # (0-1.0) k/uL Eosinophils # (0-0.7) k/uL Basophils # (0-0.2) k/uL PT (9.0-12.0) sec INR (<1.2) APTT (22.0-30.0) sec Sodium (137-145) mmol/L Potassium (3.5-5.1) mmol/L Chloride (98-107) mmol/L Carbon Dioxide (22-30) mmol/L Anion Gap mmol/L BUN (7-17) mg/dL Creatinine (0.52-1.04) mg/dL Est GFR (CKD-EPI)AfAm (>60 ml/min/1.73 sqM) Est GFR (CKD-EPI)NonAf (>60 ml/min/1.73 sqM) Glucose (74-99) mg/dL Calcium (8.4-10.2) mg/dL Magnesium (1.6-2.3) mg/dL Total Bilirubin (0.2-1.3) mg/dL AST (14-36) U/L ALT (4-34) U/L Alkaline Phosphatase (38-126) U/L Troponin I <0.012 (0.000-0.034) ng/mL NT-Pro-B Natriuret Pep 95 pg/mL Total Protein (6.3-8.2) g/dL Albumin (3.5-5.0) g/dL Amylase (30-110) U/L Lipase (23-300) U/L Disposition Clinical Impression: Chest pain Disposition: ADMITTED IP TO THIS HOSP Referrals: Chris Bocanegra MD [Primary Care Provider] - 1-2 days Time of Disposition: 14:26
[2020-03-31 12:24] LABS: Basophils # (A) 0.1 k/uL (0-0.2); Basophils % (A) 0 %; Eosinophils # (A) 0.1 k/uL (0-0.7); Eosinophils % (A) 1 %; HCT 36.9 % (34.0-46.0); HGB 12.4 gm/dL (11.4-16.0); Lymphocytes # (A) 4.4 k/uL (1.0-4.8); Lymphocytes % (A) 29 %; MCH 31.9 pg (25.0-35.0); MCHC 33.7 g/dL (31.0-37.0); MCV 94.8 fL (80.0-100.0); Mean Platelet Volume 8.6; Monocytes # (A) 0.9 k/uL (0-1.0); Monocytes % (A) 6 %; Neutrophils # (A) 9.5 k/uL (1.3-7.7); Neutrophils % (A) 63 %; Platelet Count 278 k/uL (150-450); RDW 14.1 % (11.5-15.5); WBC 15.3 k/uL (3.8-10.6)
[2020-03-31 12:34] LABS: ALT 39 U/L (4-34); AST 25 U/L (14-36); African American GFR (CKD) >90 (>60 ml/min/1.73 sqM); Albumin 3.8 g/dL (3.5-5.0); Alkaline Phosphatase 68 U/L (38-126); Amylase 33 U/L (30-110); Anion Gap 7 mmol/L; Blood Urea Nitrogen 18 mg/dL (7-17); Calcium 9.1 mg/dL (8.4-10.2); Carbon Dioxide 26 mmol/L (22-30); Chloride 104 mmol/L (98-107); Glucose 93 mg/dL (74-99); Non-African American GFR(CKD) >90 (>60 ml/min/1.73 sqM); Potassium 3.3 mmol/L (3.5-5.1); Sodium 137 mmol/L (137-145); Total Bilirubin 0.3 mg/dL (0.2-1.3); Total Protein 6.6 g/dL (6.3-8.2)
[2020-03-31 12:38] LABS: INR 0.9 (<1.2); Partial Thromboplastin Time 22.2 sec (22.0-30.0); Prothrombin Time 9.8 sec (9.0-12.0)
--- NOTE | 2020-03-31 12:41 | XR ---
EXAMINATION TYPE: XR chest 2V DATE OF EXAM: 03/31/2020 COMPARISON: 03/02/2020 INDICATION: Chest pain TECHNIQUE: Frontal and lateral views of the chest are obtained. FINDINGS: The heart size is normal. The pulmonary vasculature is normal. The lungs are clear. IMPRESSION: 1. No acute pulmonary process.
[2020-03-31] MEDS ORDERED: MORPHINE SULFATE 2 MG/ML SYRINGE IVP PRN (14:24)
[2020-03-31] MEDS ORDERED: POTASSIUM CHLORIDE ER 20 MEQ TAB.ER PO STA (14:26)
[2020-03-31] MEDS ORDERED: IPRATROPIUM-ALBUTEROL 3 ML NEB INHALATION PRN (15:36)
[2020-03-31] MEDS: ARIPiprazole 5 MG TAB PO SCH (21:13)
[2020-04-01 03:43] LABS: Cholesterol 209 mg/dL (<200); HDL Cholesterol 35 mg/dL (40-60); LDL Cholesterol,Calculated 129 mg/dL (0-99); Triglycerides 226 mg/dL (<150)
[2020-04-01] MEDS: HYDROCHLOROTHIAZIDE 50 MG TAB PO SCH (08:34)
[2020-04-01] MEDS: levETIRAcetam 500 MG TAB PO SCH (08:34)
[2020-04-01] MEDS: POTASSIUM CHLORIDE ER 10 MEQ TAB.ER.PRT PO SCH (08:34)
[2020-04-01] MEDS ORDERED: ASPIRIN 325 MG TAB PO SCH (09:00)
[2020-04-01] MEDS ORDERED: RX INFO: IV CONTRAST WAS GIVEN 1 EACH MISC MISCELLANE PRN (09:21)
[2020-04-01] MEDS ORDERED: SODIUM CHLORIDE 0.9% 500 ML 250 ML IV ONE (09:40)
--- NOTE | 2020-04-01 09:52 | HP ---
HISTORY AND PHYSICAL 49-year-old white female with severe chest pain, COPD, CVA, seizure disorder, right- sided with atypical chest pain on and off for the past week. Troponins negative x3 sets. Denies any aggravating factors. She has a history of extensive smoking and an intracranial bleed in the past with chronic right-sided weakness. HOME MEDS: Include Keppra 500 mg daily, Abilify 5 mg daily, HydroDIURIL 50 daily, Adderall 20 daily, Anoro Ellipta 200/62.5 25 one puff daily, albuterol inhaler 2 puffs q.4h p.r.n., potassium chloride 10 mEq daily. REVIEW OF SYSTEMS: Fourteen-point review of systems negative except for mentioned in HPI. PAST MEDICAL HISTORY: See old chart. SURGERIES: Tubal ligation, tonsillectomy, , anxiety. Current everyday smoker. PHYSICAL EXAMINATION: Temp 98.7, pulse 60 to 65, respiratory 18-20, blood pressure 98/75, O2 95 to 96. Psych: She appears anxious, nervous, alert, oriented x3. Giving appropriate answers Neurologic: She has right-sided weakness chronically 4/5 strength. Lungs show mild wheezes x4. Cardiovascular: S1, S2. HEENT: Normocephalic, atraumatic. ASSESSMENT: Atypical chest pain. We will do a CT of the chest. Cardiology to evaluate hyperkalemia of 3.3, will be improved. White count 15.3, unclear etiology. I guess we better check a urine culture on her. Await for Cardiology to rule out myocardial infarction. MMODL / IJN: [id number] /
[2020-04-01] MEDS: SODIUM CHLORIDE 0.9% 1,000 ML IV SCH (10:22)
--- NOTE | 2020-04-01 10:32 | CT ---
EXAMINATION TYPE: CT chest w con DATE OF EXAM: 04/01/2020 COMPARISON: 03/13/2014 HISTORY: Chest pain CT DLP: 571.7 mGycm Automated exposure control for dose reduction was used. CONTRAST: CT scan of the chest is performed with IV Contrast, patient injected with 100 ml mL of Isovue 300. FINDINGS: LUNGS: The lungs are grossly clear, there is no concerning parenchymal mass or nodule identified. T here is no pleural effusion or pneumothorax seen. The tracheobronchial tree is patent. Emphysematous changes noted. Linear changes right lung base most typical of atelectasis or scar. MEDIASTINUM: There are no greater than 1 cm hilar or mediastinal lymph nodes. No pericardial effusi on is seen. OTHER: Hypertrophic and degenerative changes of the vertebral column. Low-attenuation throughout the liver suggestive of fatty infiltration. Postcholecystectomy changes noted. IMPRESSION: 1. Correlate for COPD 2. Hepatic steatosis
--- NOTE | 2020-04-01 11:46 | P.CRDCN ---
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 Patient states [place] up all the carpets causing the patient significant shortness of breath and difficulty breathing. Patient states she then presented to [facility] with a COPD exacerbation. Patient states she came back home and she had also had a recent visit to [facility] on March 31 for continued complaints of shortness of breath with chest pain and was released. Reports from [facility] show patient had recent dobutamine stress testing on 03/05/2020 which revealed no ischemia. Patient is a very poor historian. Patient states she gets left breast/chest wall pain and associated shortness of breath with no particular pattern. Most recent chest x-ray WNL. Troponins negative 3. Patient continue sinus rhythm with no acute cardiology process, heart rate 65. Patient does not remember who she has historically followed with for cardiology, was suppose to follow-up with Dr. Glass in office per last visit but failed to do so. Patient is a current every day smoker one pack per day 29 years. Patient states she only currently smokes a few cigarettes per day. Patient also being treated for COPD at home with multiple inhalers. Physical exam within normal limits except for bilateral diminished lungs. Again pt poor historian. 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 PAST SURGICAL HISTORY: See list. EKG = SR, HR 65. No acute process Troponins negative x 3 SIGNIFICANT LABORATORY VALUES: Potassium 3.3. Sodium 137 chloride 104. BUN 18, CR 0.55. Hemoglobin 12.4 Hematocrit 36.9 WBC 15.3 Chest x-ray 03/31/2020 = No acute process. Most recent stress testing = [facility] show patient had recent dobutamine stress testing on 03/05/2020 which revealed no ischemia. REVIEW OF SYSTEMS: CONSTITUTIONAL: Denies fever. Denies chills. EYES: Denies blurred vision. Denies blurred vision or vision changes. Denies eye pain. EARS, NOSE, MOUTH & THROAT: Denies headache. Denies sore throat. Denies ear pain Denies hemoptysis. CARDIOVASCULAR: Complains of chest pain with associated shortness of breath. Denies orthopnea. Denies PND. Denies palpitations. RESPIRATORY: Complains of occasional cough and shortness of breath. GASTROINTESTINAL: Denies abdominal pain or distention. Denies diarrhea. Denies constipation. Denies nausea. Denies vomiting. MUSCULOSKELETAL: Denies myalgias. INTEGUMENTARY: Denies pruitis. Denies rash. ENDOCRINE: Complains of fatigue. Denies weight change. Denies polydipsia. Denies polyurina Denies heat/cold intolerance. GENITOURINARY: Denies burning, hematuria or urgency with micturation. HEMATOLOGIC: Denies history of anemia. Denies bleeding. NEUROLOGIC: Denies numbness. Denies tingling. Denies weakness. PSYCHIATRIC: Denies anxiety. Denies depression. PHYSICAL EXAM: GENERAL: Well developed, in no acute distress. HEENT: Head is atraumatic, normocephalic. Pupils are equal, round. Extra ocular movements intact. Mucous membranes moist. Neck supple. No JVD. No carotid bruit. No thyromegaly. LUNGS: Diminished bilaterally to auscultation. No wheezes, rales or rhonchi. No chest wall tenderness on palpation or with deep breathing. HEART: Regular rate and rhythm, no rubs or gallops. S1 and S2 heard. No murmur. ABDOMEN: Abdominal exam, WNL. Bowel sounds x4 quads. Soft, non-tender, without masses, organomegaly, or abdominal aorta enlargement. EXTREMITIES/VASCULAR: Extremities have easily palpable radial, femoral, dorsalis pedis and posterior tibial pulses. No cyanosis, calf tenderness. No BLE edema. NEUROLOGIC: Patient is awake, alert and oriented x3 (poor historian). No focal neurologic abnormalities. FINAL IMPRESSION: 1. Chest pain, atypical, recent non-ischemic stress 2. COPD, exacerbation 3. Smoking, asdvised cessation 4. Tramatic Brain Injury History with O.D. and COMA, chronic 5. Hypertension, controlled PLAN: Chest pain is atypical in nature. No acute cardiology process. Recent WNL doubutamine stress from [facility] is currently in the chart and shows no ischemia. IV 250 ml 0.9 saline bolus ordered. Will add PPI for prophylaxis. Counseled on smo rajendra cessation. Heart healthy diet. Will follow on a PRN basis for cardiology. Follow-up with Dr. Glass outpatient in 2 weeks. Nurse Practitioner note has been reviewed by the Physician. Signing provider agrees with the documented findings, assessment and plan of care. 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 had rt sided weakness.in december 2013 in with atypical c/p-neg cardiac workup. pt states is on seizure meds, but has never had a seizure. History of Any Multi-Drug Resistant Organisms: None Reported Past Surgical History: Section, Tonsillectomy, Tubal Ligation Additional Past Surgical History / Comment(s): trach and reversal Past Anesthesia/Blood Transfusion Reactions: No Reported Reaction Past Psychological History: Anxiety Additional Psychological History / Comment(s): mood disorder Smoking Status: Current every day smoker Past Alcohol Use History: None Reported Past Drug Use History: None Reported Medications and Allergies Home Medications Medication Instructions Recorded Confirmed Type Hydrochlorothiazide [Hydrodiuril] 50 mg PO DAILY 07/23/14 03/31/20 History Dextroamphetamine/Amphetamine 20 mg PO DAILY 10/17/17 03/31/20 History [Adderall] levETIRAcetam [Keppra] 500 mg PO DAILY 10/17/17 03/31/20 History ARIPiprazole [Abilify] 5 mg PO HS 02/29/20 03/31/20 History Potassium Chloride 10 meq PO DAILY 02/29/20 03/31/20 History Umeclidinium Brm/Vilanterol Tr 1 puff INHALATION RT-DAILY 02/29/20 03/31/20 History [Anoro Ellipta 62.5-25 Mcg INH] Aspirin 81 mg PO DAILY chew 03/03/20 03/31/20 Rx Albuterol Inhaler [Ventolin Hfa 1 puff INHALATION RT-QID 03/31/20 03/31/20 History Inhaler] Allergies Allergy/AdvReac Type Severity Reaction Status Date / Time cat dander Allergy Rash/Hives Verified 03/31/20 13:44 tomato Allergy Nausea Verified 03/31/20 13:44 Physical Exam Vitals: Vital Signs Temp Pulse Pulse Resp BP BP Pulse Ox 04/01/20 08:28 98.2 F 55 L 16 110/66 96 04/01/20 03:59 97.7 F 58 L 16 84/57 97 04/01/20 03:17 70 16 04/01/20 00:00 97.9 F 71 17 111/70 97 03/31/20 20:00 98 F 72 16 115/72 98 03/31/20 15:24 98.3 F 74 14 117/80 97 03/31/20 13:15 60 16 117/76 97 03/31/20 12:29 98.7 F 65 18 95 03/31/20 12:00 63 16 98/75 96 03/31/20 11:47 98.7 F 65 18 95 Intake and Output 03/31/20 04/01/20 04/01/20 22:59 06:59 14:59 Intake Total 236 0 Output Total 1 Balance 236 -1 Intake: Oral 236 0 Output: Urine 1 Other: Voiding Method Toilet # Voids 1 1 Results 03/31/20 12:05 03/31/20 12:05 Cardiac Enzymes 03/31/20 03/31/20 03/31/20 Range/Units 12:05 12:05 15:30 AST 25 (14-36) U/L Troponin I <0.012 <0.012 (0.000-0.034) ng/mL 03/31/20 Range/Units 18:16 AST (14-36) U/L Troponin I <0.012 (0.000-0.034) ng/mL Coagulation 03/31/20 Range/Units 12:05 PT 9.8 (9.0-12.0) sec APTT 22.2 (22.0-30.0) sec Lipids 03/31/20 Range/Units 12:05 Triglycerides 226 H (<150) mg/dL Cholesterol 209 H (<200) mg/dL HDL Cholesterol 35 L (40-60) mg/dL CBC 03/31/20 Range/Units 12:05 WBC 15.3 H (3.8-10.6) k/uL RBC 3.90 (3.80-5.40) m/uL Hgb 12.4 (11.4-16.0) gm/dL Hct 36.9 (34.0-46.0) % Plt Count 278 (150-450) k/uL Comprehensive Metabolic Panel 03/31/20 Range/Units 12:05 Sodium 137 (137-145) mmol/L Potassium 3.3 L (3.5-5.1) mmol/L Chloride 104 (98-107) mmol/L Carbon Dioxide 26 (22-30) mmol/L BUN 18 H (7-17) mg/dL Creatinine 0.55 (0.52-1.04) mg/dL Glucose 93 (74-99) mg/dL Calcium 9.1 (8.4-10.2) mg/dL AST 25 (14-36) U/L ALT 39 H (4-34) U/L Alkaline Phosphatase 68 (38-126) U/L Total Protein 6.6 (6.3-8.2) g/dL Albumin 3.8 (3.5-5.0) g/dL Current Medications Generic Name Dose Route Start Last Admin Trade Name Freq PRN Reason Stop Dose Admin Albuterol/Ipratropium 3 ml 03/31/20 15:36 Duoneb 0.5 Mg-3 Mg/3 Ml Soln INHALATION RT-QID PRN Shortness Of Breath Or Wheezing Aripiprazole 5 mg 03/31/20 21:00 03/31/20 21:13 Abilify PO 5 mg HS VILLA Administration Aspirin 81 mg 04/02/20 09:00 Aspirin PO DAILY VILLA Hydrochlorothiazide 50 mg 04/01/20 09:00 04/01/20 08:34 Hydrodiuril PO 50 mg DAILY VILLA Administration Sodium Chloride 1,000 mls @ 50 mls/hr 04/01/20 09:45 04/01/20 10:22 Saline 0.9% IV 50 mls/hr .Q20H VILLA Administration Levetiracetam 500 mg 04/01/20 09:00 04/01/20 08:34 Keppra PO 500 mg DAILY VILLA Administration Methylprednisolone Sodium Succinate 40 mg 04/01/20 16:00 Solu-Medrol IV Q8HR VILLA Miscellaneous Information 1 each 04/01/20 09:21 Rx Info: Iv Contrast Was Given MISCELLANE 04/03/20 09:22 DAILY PRN Per Protocol Morphine Sulfate 2 mg 03/31/20 14:24 03/31/20 21:13 Morphine Sulfate (Inj) IVP 2 mg Q6H PRN Administration pain Potassium Chloride 10 meq 04/01/20 09:00 04/01/20 08:34 K-Dur 10 PO 10 meq DAILY VILLA Administration Intake and Output 03/31/20 04/01/20 04/01/20 22:59 06:59 14:59 Intake Total 236 0 Output Total 1 Balance 236 -1 Intake: Oral 236 0 Output: Urine 1 Other: Voiding Method Toilet # Voids 1 1 03/31/20 12:05 03/31/20 12:05 - EKG Interpretation EKG: sinus rhythm
[2020-04-01] MEDS: PANTOPRAZOLE 40 MG TABLET PO SCH ×2 (12:55→16:45)
[2020-04-01 13:26] LABS: Appearance,Urine Clear (Clear); Bilirubin,Urine Negative (Negative); Blood,Urine Negative (Negative); Color,Urine Light Yellow; Glucose,Urine (UA) Negative (Negative); Ketones,Urine Negative (Negative); Leukocyte Esterase,Urine Negative (Negative); Nitrite,Urine Negative (Negative); Protein,Urine Negative (Negative); Specific Gravity,Urine 1.037 (1.001-1.035); Urobilinogen,Urine <2.0 mg/dL (<2.0)
[2020-04-01] MEDS: methylPREDNISolone SOD SUCCI 40 MG/ML 1 ML VIAL IV SCH ×2 (16:17→23:54)
[2020-04-01] MEDS: ARIPiprazole 5 MG TAB PO SCH (20:32)
[2020-04-02] MEDS: SODIUM CHLORIDE 0.9% 1,000 ML IV SCH (05:12)
[2020-04-02 06:39] LABS: Basophils % (A) 0 %; Eosinophils # (A) 0.1 k/uL (0-0.7); Eosinophils % (A) 1 %; HCT 40.8 % (34.0-46.0); Lymphocytes # (A) 1.7 k/uL (1.0-4.8); Lymphocytes % (A) 14 %; MCH 32.4 pg (25.0-35.0); MCHC 34.2 g/dL (31.0-37.0); MCV 94.7 fL (80.0-100.0); Mean Platelet Volume 8.2; Monocytes # (A) 0.1 k/uL (0-1.0); Monocytes % (A) 1 %; Neutrophils # (A) 9.9 k/uL (1.3-7.7); Neutrophils % (A) 84 %; Platelet Count 321 k/uL (150-450); RBC 4.31 m/uL (3.80-5.40); RDW 13.6 % (11.5-15.5); WBC 11.8 k/uL (3.8-10.6)
[2020-04-02 07:29] VITALS: RESP 16
[2020-04-02] MEDS: PANTOPRAZOLE 40 MG TABLET PO SCH (08:27)
[2020-04-02] MEDS: POTASSIUM CHLORIDE ER 10 MEQ TAB.ER.PRT PO SCH (08:27)
[2020-04-02] MEDS: levETIRAcetam 500 MG TAB PO SCH (08:27)
[2020-04-02] MEDS: HYDROCHLOROTHIAZIDE 50 MG TAB PO SCH (08:27)
[2020-04-02] MEDS: methylPREDNISolone SOD SUCCI 40 MG/ML 1 ML VIAL IV SCH ×2 (08:27→16:34)
[2020-04-02] MEDS ORDERED: ASPIRIN 81 MG PO SCH (09:00)
[2020-04-02 16:33] VITALS: BP 123/83; PULSE 63; TEMP 98.6
== END 2020-04-02 17:36 | disposition home or self-care (01) ==
LOC: EC 11:39 → 1SOBS 14:23
PROVIDERS: ADMIT Family Medicine; ATTEND Family Medicine
DX: R07.89 Other chest pain (principal); J44.1 Chronic obstructive pulmonary disease with (acute) exacerbation; G40.909 Epilepsy, unspecified, not intractable, without status epilepticus; F41.9 Anxiety disorder, unspecified; D72.829 Elevated white blood cell count, unspecified; R53.1 Weakness; F17.210 Nicotine dependence, cigarettes, uncomplicated; Z03.818 Encounter for observation for suspected exposure to other biological agents ruled out; Z86.73 Personal history of transient ischemic attack (TIA), and cerebral infarction without residual deficits; Z79.899 Other long term (current) drug therapy; Z91.09 Other allergy status, other than to drugs and biological substances; Z91.018 Allergy to other foods; Z87.820 Personal history of traumatic brain injury; Z91.81 History of falling; Z98.890 Other specified postprocedural states; Z90.89 Acquired absence of other organs; Z98.51 Tubal ligation status; Z87.898 Personal history of other specified conditions; Z79.82 Long term (current) use of aspirin
CPT/HCPCS: 96361; 96375; 96376 ×3; 96374; 99285; 36415; 94640; 93005 ×2; 83880; 80061; 80053; 82150; 83690; 83735; 84484; 85025 ×2; 85610; 85730; 81003; 71046; 71260; G0378 ×3; U0003; J2920 ×2; J2270; Q9967

== ENCOUNTER 2020-04-03 11:09 | Emergency (ER) | payer MEDICARE, OTHER ==
[2020-04-03 11:19] VITALS: RESP 18
[2020-04-03 12:11] LABS: Basophils # (A) 0.1 k/uL (0-0.2); Basophils % (A) 0 %; Eosinophils # (A) 0.1 k/uL (0-0.7); Eosinophils % (A) 1 %; HCT 40.5 % (34.0-46.0); Lymphocytes # (A) 5.4 k/uL (1.0-4.8); Lymphocytes % (A) 27 %; MCH 32.6 pg (25.0-35.0); MCHC 34.6 g/dL (31.0-37.0); MCV 94.2 fL (80.0-100.0); Mean Platelet Volume 8.2; Monocytes # (A) 0.9 k/uL (0-1.0); Monocytes % (A) 4 %; Neutrophils # (A) 13.1 k/uL (1.3-7.7); Neutrophils % (A) 66 %; Platelet Count 323 k/uL (150-450); RDW 13.9 % (11.5-15.5); WBC 19.7 k/uL (3.8-10.6)
--- NOTE | 2020-04-03 12:20 | ED ---
Chest Pain HPI - General Chief Complaint: Chest Pain Stated Complaint: Chest pain, headache Time Seen by Provider: 04/03/20 11:29 Source: patient Mode of arrival: wheelchair Limitations: no limitations - History of Present Illness Initial Comments: Patient is a 49-year-old female presenting to the emergency Department with complaints of chest pain, headache has been ongoing for 1 week. Patient was admitted to this hospital a few days ago and discharged yesterday for similar complaint. Her workup was normal including serial troponins, chest CT, cardio consult. Patient then went to [facility] late last night, early this morning for same complaint and was discharged with a normal workup. She presents today still complaining of chest discomfort. Accompanied by her [facility] worker. She denies any suicidal or homicidal thoughts at this time. She states it hurts her chest when she moves around. They were on their way to corn picker her Adderall which she has not been on for approximately one week when she started having the symptoms and her doctor told her to go back into the ER. She denies any shortness of breath, fever, chills, abdominal pain, nausea, vomiting, diarrhea. She has no further complaints at this time. Upon arrival to the ER, her vitals are stable. - Related Data Home Medications Medication Instructions Recorded Confirmed Hydrochlorothiazide [Hydrodiuril] 50 mg PO DAILY 07/23/14 04/03/20 Dextroamphetamine/Amphetamine 20 mg PO DAILY 10/17/17 04/03/20 [Adderall] levETIRAcetam [Keppra] 500 mg PO DAILY 10/17/17 04/03/20 ARIPiprazole [Abilify] 5 mg PO HS 02/29/20 04/03/20 Potassium Chloride 10 meq PO DAILY 02/29/20 04/03/20 Umeclidinium Brm/Vilanterol Tr 1 puff INHALATION RT-DAILY 02/29/20 04/03/20 [Anoro Ellipta 62.5-25 Mcg INH] Albuterol Inhaler [Ventolin Hfa 2 puff INHALATION RT-Q4H PRN 03/31/20 04/03/20 Inhaler] Previous Rx's Medication Instructions Recorded Aspirin 81 mg PO DAILY chew 03/03/20 Allergies Allergy/AdvReac Type Severity Reaction Status Date / Time cat dander Allergy Rash/Hives Verified 04/03/20 12:11 tomato Allergy Nausea Verified 04/03/20 12:11 Review of Systems ROS Statement: Those systems with pertinent positive or pertinent negative responses have been documented in the HPI. ROS Other: All systems not noted in ROS Statement are negative. EKG Findings - EKG Comments: EKG Findings:: Her EKG reads normal sinus rhythm, normal ECG, no signs of acute ischemia. Ventricular rate 69, GA interval 122, QT 390. 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 had rt sided weakness.in december 2013 in with atypical c/p-neg cardiac workup. pt states is on seizure meds, but has never had a seizure. History of Any Multi-Drug Resistant Organisms: None Reported Past Surgical History: Section, Tonsillectomy, Tubal Ligation Additional Past Surgical History / Comment(s): trach and reversal Past Anesthesia/Blood Transfusion Reactions: No Reported Reaction Past Psychological History: Anxiety Smoking Status: Current every day smoker Past Alcohol Use History: None Reported Past Drug Use History: None Reported General Exam - General Exam Comments Initial Comments: GENERAL: Patient appears anxious and in no acute distress. HEAD: Atraumatic, normocephalic. EYES: Pupils equal round and reactive to light, extraocular movements intact, sclera anicteric, conjunctiva are normal. ENT: TMs normal, nares patent, oropharynx clear without exudates. Moist mucous membranes. NECK: Normal range of motion, supple without lymphadenopathy or JVD. LUNGS: Breath sounds clear to auscultation bilaterally and equal. No wheezes rales or rhonchi. HEART: Regular rate and rhythm without murmurs, rubs or gallops. ABDOMEN: Soft, nontender, normoactive bowel sounds. No guarding, no rebound. No masses appreciated. : Deferred EXTREMITIES: Normal range of motion, no pitting or edema. No clubbing or cyanosis. NEUROLOGICAL: Cranial nerves II through XII grossly intact. Normal speech, normal gait. PSYCH: Normal mood, normal affect. SKIN: Warm, Dry, normal turgor, no rashes or lesions noted. Limitations: no limitations Course Vital Signs 04/03/20 04/03/20 04/03/20 11:14 11:43 11:54 Temperature 98.2 F 98.2 F Pulse Rate 64 65 Pulse Rate [ 66 Pulse Oximetery ] Respiratory 18 18 Rate Blood Pressure 120/70 100/71 O2 Sat by Pulse 97 100 Oximetry 04/03/20 04/03/20 12:22 13:56 Temperature 98.0 F Pulse Rate 62 72 Pulse Rate [ Pulse Oximetery ] Respiratory 18 18 Rate Blood Pressure 118/79 O2 Sat by Pulse 100 97 Oximetry Chest Pain MDM - MDM Patient is a 49-year-old female here for chest pain times one week. She was rec ently discharged from this hospital for same complaint and went to [facility] late last night, early this morning for same complaint. Her vitals are stable. EKG today shows no acute findings. Her workup today is unremarkable except for some leukocytosis which is most likely related to recent steroid prescribed by her doctor. She has no signs for infection. Lab work and imaging were reviewed from previous hospital stay as well as [facility]'s records. She was given Toradol for headache. I discussed the patient these findings and that she is stable for discharge. She needs to follow up with her PCP. Patient is agreeable with this plan of care. Return parameters were discussed with the patient and she verbalized understanding. Case discussed with Dr. Govea. Disposition Clinical Impression: Atypical chest pain, Headache Disposition: HOME SELF-CARE Condition: Stable Instructions (If sedation given, give patient instructions): Anxiety (ED) Additional Instructions: Please return to the Emergency Department if symptoms worsen or any other concerns. Follow-up with PCP. Is patient prescribed a controlled substance at d/c from ED?: No Referrals: Chris Bocanegra MD [Primary Care Provider] - 1-2 days
[2020-04-03 12:21] LABS: ALT 48 U/L (4-34); AST 29 U/L (14-36); African American GFR (CKD) >90 (>60 ml/min/1.73 sqM); Alkaline Phosphatase 75 U/L (38-126); Anion Gap 8 mmol/L; Blood Urea Nitrogen 20 mg/dL (7-17); Calcium 9.1 mg/dL (8.4-10.2); Carbon Dioxide 28 mmol/L (22-30); Chloride 102 mmol/L (98-107); Glucose 79 mg/dL (74-99); Non-African American GFR(CKD) >90 (>60 ml/min/1.73 sqM); Potassium 3.6 mmol/L (3.5-5.1); Sodium 138 mmol/L (137-145); Total Bilirubin 0.4 mg/dL (0.2-1.3); Total Protein 6.7 g/dL (6.3-8.2)
[2020-04-03 12:26] VITALS: BP 118/79
[2020-04-03] MEDS ORDERED: KETOROLAC 30 MG/ML 1 ML VIAL IVP STA (13:25)
[2020-04-03] MEDS ORDERED: MAGNESIUM CITRATE 296 ML BOTTLE PO ONE (14:03)
[2020-04-03 14:05] VITALS: PULSE 72; TEMP 98
== END 2020-04-03 14:07 | disposition home or self-care (01) ==
LOC: EC 11:09
DX: R07.89 Other chest pain (principal); R51 Headache; D72.829 Elevated white blood cell count, unspecified; F41.9 Anxiety disorder, unspecified; J44.9 Chronic obstructive pulmonary disease, unspecified; G40.909 Epilepsy, unspecified, not intractable, without status epilepticus; F17.200 Nicotine dependence, unspecified, uncomplicated; Z79.51 Long term (current) use of inhaled steroids; Z91.018 Allergy to other foods; Z91.048 Other nonmedicinal substance allergy status
CPT/HCPCS: 99285; 96374; 36415; 93005; 80053; 84484; 85025; J1885

== ENCOUNTER 2020-04-05 13:13 | Emergency (ER) | payer MEDICARE, OTHER ==
[2020-04-05] MEDS ORDERED: KETOROLAC 30 MG/ML 1 ML VIAL IVP STA (13:17)
[2020-04-05] MEDS ORDERED: SODIUM CHLORIDE 0.9% 1,000 ML IV STA (13:17)
[2020-04-05] MEDS ORDERED: IPRATROPIUM-ALBUTEROL 3 ML NEB INHALATION STA (13:33)
--- NOTE | 2020-04-05 13:33 | ED ---
Chest Pain HPI - General Chief Complaint: Chest Pain Stated Complaint: Chest pain Time Seen by Provider: 04/05/20 13:13 Source: patient, RN notes reviewed Mode of arrival: EMS Limitations: no limitations - History of Present Illness Initial Comments: This is a 49-year-old female who presents with complaints of chest pain is been going on for about 2 weeks. She has been seen at this facility as well as [facility] recently for similar pain she comes in today because of increased pain she states is squeezing left-sided in nature does not it worse or better with any movement deep breathing she has of a history of COPD and still is a smoker she states. Only smokes 2 cigarettes a day now she states. She denies any overt shortness of breath at this time no cough fevers chills sweats phlegm production palpitations. She does states she is partially paralyzed on the right side she has a recent history of low potassium and dehydration. She also states she has not had bowel movement for 6 days. MD Complaint: chest pain - Related Data Home Medications Medication Instructions Recorded Confirmed Hydrochlorothiazide [Hydrodiuril] 50 mg PO DAILY 07/23/14 04/05/20 Dextroamphetamine/Amphetamine 20 mg PO DAILY 10/17/17 04/05/20 [Adderall] levETIRAcetam [Keppra] 500 mg PO DAILY 10/17/17 04/05/20 ARIPiprazole [Abilify] 5 mg PO HS 02/29/20 04/05/20 Potassium Chloride 10 meq PO DAILY 02/29/20 04/05/20 Albuterol Inhaler [Ventolin Hfa 2 puff INHALATION RT-Q4H PRN 03/31/20 04/05/20 Inhaler] Fluticasone/Umeclidin/Vilanter 1 puff INHALATION RT-DAILY 04/05/20 04/05/20 [Trelegy Ellipta 100-62.5-25] Linaclotide [Linzess] 580 mcg PO ONCE PRN 04/05/20 04/05/20 Previous Rx's Medication Instructions Recorded Aspirin 81 mg PO DAILY chew 03/03/20 Allergies Allergy/AdvReac Type Severity Reaction Status Date / Time cat dander Allergy Rash/Hives Verified 04/05/20 13:52 tomato Allergy Nausea Verified 04/05/20 13:52 Review of Systems ROS Statement: Those systems with pertinent positive or pertinent negative responses have been documented in the HPI. ROS Other: All systems not noted in ROS Statement are negative. EKG Findings - EKG Results: EKG: interpreted by EDNA MANLEY, sinus rhythm, normal axis, normal QRS, normal ST/T, no acute changes (Normal sinus rhythm a 71. 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 had rt sided weakness.in december 2013 in with atypical c/p-neg cardiac workup. pt states is on seizure meds, but has never had a seizure. History of Any Multi-Drug Resistant Organisms: None Reported Past Surgical History: Section, Tonsillectomy, Tubal Ligation Additional Past Surgical History / Comment(s): trach and reversal Past Anesthesia/Blood Transfusion Reactions: No Reported Reaction Past Psychological History: Anxiety Smoking Status: Current every day smoker Past Alcohol Use History: None Reported Past Drug Use History: None Reported General Exam - General Exam Comments Initial Comments: This is a well-developed well-nourished awake alert oriented 3 female Limitations: no limitations General appearance: alert, in no apparent distress Head exam: Present: atraumatic, normocephalic, normal inspection Eye exam: Present: normal appearance, PERRL, EOMI. Absent: scleral icterus, conjunctival injection, periorbital swelling ENT exam: Present: normal exam, mucous membranes moist Neck exam: Present: normal inspection. Absent: tenderness, meningismus, lymphadenopathy Respiratory exam: Present: wheezes, chest wall tenderness (Some tenderness palpation which does reproduce the patient's pain.). Absent: respiratory distress, rales, rhonchi, stridor Cardiovascular Exam: Present: regular rate, normal rhythm, normal heart sounds. Absent: systolic murmur, diastolic murmur, rubs, gallop, clicks GI/Abdominal exam: Present: soft, normal bowel sounds. Absent: distended, tenderness, guarding, rebound, rigid Extremities exam: Present: normal inspection, normal capillary refill. Absent: tenderness, pedal edema, joint swelling, calf tenderness Back exam: Present: normal inspection Neurological exam: Present: alert, oriented X3, CN II-XII intact, motor sensory deficit (Slight motor deficit is noted above) Psychiatric exam: Present: normal affect, normal mood Skin exam: Present: warm, dry, intact, normal color. Absent: rash Course Vital Signs 04/05/20 04/05/20 04/05/20 13:16 14:01 14:14 Temperature 98.5 F Pulse Rate 73 64 60 Respiratory 18 Rate Blood Pressure 110/76 O2 Sat by Pulse 97 Oximetry 04/05/20 15:13 Temperature Pulse Rate 75 Respiratory 18 Rate Blood Pressure 125/75 O2 Sat by Pulse 100 Oximetry Chest Pain MDM - MDM I did review the imaging and report no acute findings I did review the recent admission. Patient has been cleared by cardiology did discuss case with Dr. Bocanegra and with the patient. She did have a BuSpar prescription which was not yet started it is ready at the patient's pharmacy. Patient be discharged and follow-up Disposition Clinical Impression: Chest wall syndrome, Costochondritis, Anxiety Disposition: HOME SELF-CARE Condition: Good Instructions (If sedation given, give patient instructions): Costochondritis (ED), Anxiety (ED) Additional Instructions: Pre-or pharmacy the BuSpar prescription is ready for pickup. As per Dr. Bocanegra's instructions he may begin taking this medication. Is patient prescribed a controlled substance at d/c from ED?: No Referrals: Chris Bocanegra MD [Primary Care Provider] - 1-2 days
--- NOTE | 2020-04-05 13:38 | XR ---
EXAMINATION TYPE: XR chest 2V DATE OF EXAM: 04/05/2020 COMPARISON: 03/31/2020 HISTORY: Chest pain TECHNIQUE: Frontal and lateral views of the chest are obtained. FINDINGS: There is no focal air space opacity. No evidence for pneumothorax. No pleural effusion. The cardiac silhouette size is within normal limits. The osseous structures are grossly intact. IMPRESSION: 1. No acute cardiopulmonary process.
[2020-04-05 13:39] LABS: Basophils % (A) 0 %; Eosinophils # (A) 0.3 k/uL (0-0.7); Eosinophils % (A) 2 %; HCT 39.8 % (34.0-46.0); HGB 13.4 gm/dL (11.4-16.0); Lymphocytes # (A) 4.2 k/uL (1.0-4.8); Lymphocytes % (A) 29 %; MCH 31.8 pg (25.0-35.0); MCHC 33.7 g/dL (31.0-37.0); MCV 94.3 fL (80.0-100.0); Mean Platelet Volume 8.2; Monocytes # (A) 0.4 k/uL (0-1.0); Monocytes % (A) 3 %; Neutrophils # (A) 9.5 k/uL (1.3-7.7); Neutrophils % (A) 64 %; Platelet Count 315 k/uL (150-450); RBC 4.22 m/uL (3.80-5.40); RDW 13.7 % (11.5-15.5); WBC 14.7 k/uL (3.8-10.6)
[2020-04-05 13:50] LABS: ALT 41 U/L (4-34); AST 24 U/L (14-36); African American GFR (CKD) >90 (>60 ml/min/1.73 sqM); Albumin 3.9 g/dL (3.5-5.0); Alkaline Phosphatase 64 U/L (38-126); Anion Gap 11 mmol/L; Blood Urea Nitrogen 14 mg/dL (7-17); Calcium 9.1 mg/dL (8.4-10.2); Carbon Dioxide 24 mmol/L (22-30); Chloride 101 mmol/L (98-107); Creatine Kinase 28 U/L (30-135); Glucose 95 mg/dL (74-99); Magnesium 2.3 mg/dL (1.6-2.3); Non-African American GFR(CKD) >90 (>60 ml/min/1.73 sqM); Potassium 3.8 mmol/L (3.5-5.1); Sodium 136 mmol/L (137-145); Total Bilirubin 0.5 mg/dL (0.2-1.3); Total Protein 6.6 g/dL (6.3-8.2)
[2020-04-05 13:54] LABS: D-Dimer 0.25 mg/L FEU (<0.60); INR 0.9 (<1.2); Partial Thromboplastin Time 23.1 sec (22.0-30.0); Prothrombin Time 9.6 sec (9.0-12.0)
[2020-04-06 10:12] VITALS: BP 102/72; PULSE 72; RESP 18; TEMP 98
== END 2020-04-05 16:31 | disposition home or self-care (01) ==
LOC: EC 13:13
DX: M94.0 Chondrocostal junction syndrome [Tietze] (principal); R07.1 Chest pain on breathing; F41.9 Anxiety disorder, unspecified; J44.9 Chronic obstructive pulmonary disease, unspecified; I20.9 Angina pectoris, unspecified; G40.909 Epilepsy, unspecified, not intractable, without status epilepticus; F17.200 Nicotine dependence, unspecified, uncomplicated; Z79.51 Long term (current) use of inhaled steroids; Z79.899 Other long term (current) drug therapy; Z86.73 Personal history of transient ischemic attack (TIA), and cerebral infarction without residual deficits; Z91.018 Allergy to other foods; Z91.048 Other nonmedicinal substance allergy status
CPT/HCPCS: 36415; 71046; 80053; 82550; 83690; 83735; 83880; 84484; 85025; 85379; 85610; 85730; 93005; 96361; 96374; 99285

== ENCOUNTER 2020-04-06 01:04 | Emergency (ER) | payer MEDICARE, OTHER ==
[2020-04-06] MEDS ORDERED: SODIUM CHLORIDE 0.9% 500 ML 500 ML IV STA (01:34)
[2020-04-06] MEDS ORDERED: ASPIRIN 81 MG PO STA (01:34)
[2020-04-06 01:59] LABS: Basophils # (A) 0.1 k/uL (0-0.2); Basophils % (A) 1 %; Eosinophils # (A) 0.3 k/uL (0-0.7); Eosinophils % (A) 3 %; HGB 12.4 gm/dL (11.4-16.0); Lymphocytes # (A) 4.4 k/uL (1.0-4.8); Lymphocytes % (A) 37 %; MCH 30.3 pg (25.0-35.0); MCHC 32.5 g/dL (31.0-37.0); MCV 93.2 fL (80.0-100.0); Mean Platelet Volume 7.9; Monocytes # (A) 0.6 k/uL (0-1.0); Monocytes % (A) 5 %; Neutrophils # (A) 6.3 k/uL (1.3-7.7); Neutrophils % (A) 54 %; Platelet Count 273 k/uL (150-450); RBC 4.08 m/uL (3.80-5.40); RDW 13.8 % (11.5-15.5); WBC 11.8 k/uL (3.8-10.6)
[2020-04-06 02:12] LABS: INR 0.9 (<1.2); Partial Thromboplastin Time 23.8 sec (22.0-30.0); Prothrombin Time 9.6 sec (9.0-12.0)
[2020-04-06 02:17] LABS: ALT 34 U/L (4-34); AST 18 U/L (14-36); African American GFR (CKD) >90 (>60 ml/min/1.73 sqM); Albumin 3.5 g/dL (3.5-5.0); Alkaline Phosphatase 72 U/L (38-126); Anion Gap 7 mmol/L; Blood Urea Nitrogen 12 mg/dL (7-17); Calcium 8.7 mg/dL (8.4-10.2); Carbon Dioxide 29 mmol/L (22-30); Chloride 99 mmol/L (98-107); Glucose 93 mg/dL (74-99); Magnesium 2.2 mg/dL (1.6-2.3); Non-African American GFR(CKD) >90 (>60 ml/min/1.73 sqM); Potassium 3.3 mmol/L (3.5-5.1); Sodium 135 mmol/L (137-145); Total Bilirubin 0.2 mg/dL (0.2-1.3); Total Protein 5.8 g/dL (6.3-8.2)
--- NOTE | 2020-04-06 02:20 | XR ---
EXAMINATION TYPE: XR chest 2V DATE OF EXAM: 04/06/2020 COMPARISON: 04/05/2020 HISTORY: Constipation. Chest pain. TECHNIQUE: FINDINGS: Heart and mediastinum are normal. Lungs are clear. Diaphragm is normal. Bony thorax appears normal. IMPRESSION: Normal chest. No change.
--- NOTE | 2020-04-06 02:23 | XR ---
EXAMINATION TYPE: XR KUB DATE OF EXAM: 04/06/2020 COMPARISON: 06/04/2012 HISTORY: Constipation. Pain. TECHNIQUE: 2 views upright FINDINGS: There is no sign of intestinal obstruction or pneumoperitoneum. Fecal pattern is normal.There is inferior vena cava filter noted. There are chest leads. There are no pathologic calcifications over the kidneys. IMPRESSION: Nonacute abdomen. No evidence of constipation. No adverse change compared to old exam.
[2020-04-06] MEDS ORDERED: NA PHOS,M-B/NA PHOS,DI-BA 133 ML ENEMA RECTAL STA (02:58)
[2020-04-06] MEDS ORDERED: POTASSIUM CHLORIDE ER 20 MEQ TAB.ER PO STA (03:09)
--- NOTE | 2020-04-06 03:14 | ED ---
General Adult HPI - General Source: patient, EMS, RN notes reviewed, old records reviewed Mode of arrival: EMS Limitations: no limitations <Mata Ngo - Last Filed: 04/06/20 03:14> <Roselyn Seymour - Last Filed: 04/06/20 04:59> - General Chief complaint: Abdominal Pain Stated complaint: Constipation Time Seen by Provider: 04/06/20 01:19 - History of Present Illness Initial comments: 49-year-old female patient presented to ED for chief complaint of abdominal distention and constipation. Reports she has not had a bowel movement 7 days. Patient was evaluated in this emergency department for chest pain earlier today. States that she has been having pain for weeks. Denies any other complaints. Systemic: Pt denies fatigue, fever/chills, rash. Pt denies weakness, night sweats, weight loss. Neuro: Pt denies headache, visual disturbances, syncope or pre-syncope. HEENT: Pt denies ocular discharge or irritation, otalgia, rhinorrhea, pharyngitis or notable lymphadenopathy. Cardiopulmonary: Pt denies SOB, heart palpitations, dyspnea on exertion. Abdominal/GI: Pt denies abdominal pain, n/v/d. : Pt denies dysuria, burning w/ urination, frequency/urgency. Denies new onset urinary or bowel incontinence. MSK: Pt denies myalgia, loss of strength or function in extremities. Neuro: Pt denies new onset weakness, paresthesias. (Mata Ngo) - Related Data Home Medications Medication Instructions Recorded Confirmed RX: Hydrochlorothiazide 50 mg PO DAILY 07/23/14 04/05/20 [Hydrodiuril] RX: Dextroamphetamine/Amphetamine 20 mg PO DAILY 10/17/17 04/05/20 [Adderall] RX: levETIRAcetam [Keppra] 500 mg PO DAILY 10/17/17 04/05/20 RX: ARIPiprazole [Abilify] 5 mg PO HS 02/29/20 04/05/20 RX: Potassium Chloride 10 meq PO DAILY 02/29/20 04/05/20 RX: Albuterol Inhaler [Ventolin 2 puff INHALATION RT-Q4H PRN 03/31/20 04/05/20 Hfa Inhaler] Fluticasone/Umeclidin/Vilanter 1 puff INHALATION RT-DAILY 04/05/20 04/05/20 [Trelegy Ellipta 100-62.5-25] Linaclotide [Linzess] 580 mcg PO ONCE PRN 04/05/20 04/05/20 Previous Rx's Medication Instructions Recorded RX: Aspirin 81 mg PO DAILY chew 03/03/20 Allergies Allergy/AdvReac Type Severity Reaction Status Date / Time cat dander Allergy Rash/Hives Verified 04/06/20 01:10 tomato Allergy Nausea Verified 04/06/20 01:10 Review of Systems ROS Other: All systems not noted in ROS Statement are negative. <Mata Ngo - Last Filed: 04/06/20 03:14> ROS Other: All systems not noted in ROS Statement are negative. <Roselyn Seymour - Last Filed: 04/06/20 04:59> ROS Statement: Those systems with pertinent positive or pertinent negative responses have been documented in the HPI. 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 had rt sided weakness.in december 2013 in with atypical c/p-neg cardiac workup. pt states is on seizure meds, but has never had a seizure. History of Any Multi-Drug Resistant Organisms: None Reported Past Surgical History: Section, Tonsillectomy, Tubal Ligation Additional Past Surgical History / Comment(s): trach and reversal Past Anesthesia/Blood Transfusion Reactions: No Reported Reaction Past Psychological History: Anxiety Smoking Status: Current every day smoker Past Alcohol Use History: None Reported Past Drug Use History: None Reported <Mata Ngo - Last Filed: 04/06/20 03:14> General Exam Limitations: no limitations <Mata Ngo - Last Filed: 04/06/20 03:14> - General Exam Comments Initial Comments: Constitutional: NAD, AOX3, Pt has pleasant affect. HEENT: NC/AT, trachea midline, neck supple, no lymphadenopathy. Posterior pharynx non erythematous, without exudates. External ears appear normal, without discharge. Mucous membranes moist. Eyes PERRLA, EOM intact. There is no scleral icterus. No pallor noted. Cardiopulmonary: RRR, no murmurs, rubs or gallops, no JVD noted. Lungs CTAB in anterior and posterior newman. No peripheral edema. Abdominal exam: Abdomen soft and non-distended. Abdomen nontender to palpation in all 4 quadrants.. Bowel sounds active in LLQ. No hepatosplenomegaly. No ecchymosis Neuro: CN II-XII grossly intact. No nuchal rigidity. No raccon eyes, no correia sign, no hemotympanum. No cervical spinal tenderness. MSK: No posterior calf tenderness bilaterally, homans sign negative bilaterally. Posterior tibialis and radial pulse +2 bilaterally. Sensation intact in upper and lower extremities. Full active ROM in upper and lower extremities, 5/5 stregnth. (Mata Ngo) Course Vital Signs 04/06/20 04/06/20 01:07 03:32 Temperature 97.3 F L Pulse Rate 62 72 Respiratory 18 17 Rate Blood Pressure 99/71 119/74 O2 Sat by Pulse 98 100 Oximetry Medical Decision Making - Lab Data Result diagrams: 04/06/20 01:46 04/06/20 01:46 - EKG Data -: EKG Interpreted by Me (and Dr. Seymour ) <Mata Ngo - Last Filed: 04/06/20 03:14> - Lab Data Result diagrams: 04/06/20 01:46 04/06/20 01:46 <Roselyn Seymour - Last Filed: 04/06/20 04:59> - Medical Decision Making 49-year-old female patient presented to ED for chief complaint of abdominal distention and constipation. Reports she has not had a bowel movement 7 days. Patient was evaluated in this emergency department for chest pain earlier today. States that she has been having pain for weeks. Denies any other complaints. Denies any other complaints. Patient vital signs are stable, afebrile. Physical exam displayed no acute pathology. Laboratory investigation non-impressive. Troponin is negative. EKG is nonischemic. Chest x-ray KUB did not display any acute process. Patient signed out to Dr. Seymour pending enema. (Mata Ngo) - Lab Data Lab Results 04/06/20 04/06/20 04/06/20 Range/Units 01:46 01:46 01:46 WBC 11.8 H (3.8-10.6) k/uL RBC 4.08 (3.80-5.40) m/uL Hgb 12.4 (11.4-16.0) gm/dL Hct 38.0 (34.0-46.0) % MCV 93.2 (80.0-100.0) fL MCH 30.3 (25.0-35.0) pg MCHC 32.5 (31.0-37.0) g/dL RDW 13.8 (11.5-15.5) % Plt Count 273 (150-450) k/uL Neutrophils % 54 % Lymphocytes % 37 % Monocytes % 5 % Eosinophils % 3 % Basophils % 1 % Neutrophils # 6.3 (1.3-7.7) k/uL Lymphocytes # 4.4 (1.0-4.8) k/uL Monocytes # 0.6 (0-1.0) k/uL Eosinophils # 0.3 (0-0.7) k/uL Basophils # 0.1 (0-0.2) k/uL PT 9.6 (9.0-12.0) sec INR 0.9 (<1.2) APTT 23.8 (22.0-30.0) sec Sodium 135 L (137-145) mmol/L Potassium 3.3 L (3.5-5.1) mmol/L Chloride 99 (98-107) mmol/L Carbon Dioxide 29 (22-30) mmol/L Anion Gap 7 mmol/L BUN 12 (7-17) mg/dL Creatinine 0.60 (0.52-1.04) mg/dL Est GFR (CKD-EPI)AfAm >90 (>60 ml/min/1.73 sqM) Est GFR (CKD-EPI)NonAf >90 (>60 ml/min/1.73 sqM) Glucose 93 (74-99) mg/dL Calcium 8.7 (8.4-10.2) mg/dL Magnesium 2.2 (1.6-2.3) mg/dL Total Bilirubin 0.2 (0.2-1.3) mg/dL AST 18 (14-36) U/L ALT 34 (4-34) U/L Alkaline Phosphatase 72 (38-126) U/L Troponin I (0.000-0.034) ng/mL NT-Pro-B Natriuret Pep pg/mL Total Protein 5.8 L (6.3-8.2) g/dL Albumin 3.5 (3.5-5.0) g/dL Lipase 46 (23-300) U/L 04/06/20 04/06/20 Range/Units 01:46 01:46 WBC (3.8-10.6) k/uL RBC (3.80-5.40) m/uL Hgb (11.4-16.0) gm/dL Hct (34.0-46.0) % MCV (80.0-100.0) fL MCH (25.0-35.0) pg MCHC (31.0-37.0) g/dL RDW (11.5-15.5) % Plt Count (150-450) k/uL Neutrophils % % Lymphocytes % % Monocytes % % Eosinophils % % Basophils % % Neutrophils # (1.3-7.7) k/uL Lymphocytes # (1.0-4.8) k/uL Monocytes # (0-1.0) k/uL Eosinophils # (0-0.7) k/uL Basophils # (0-0.2) k/uL PT (9.0-12.0) sec INR (<1.2) APTT (22.0-30.0) sec Sodium (137-145) mmol/L Potassium (3.5-5.1) mmol/L Chloride (98-107) mmol/L Carbon Dioxide (22-30) mmol/L Anion Gap mmol/L BUN (7-17) mg/dL Creatinine (0.52-1.04) mg/dL Est GFR (CKD-EPI)AfAm (>60 ml/min/1.73 sqM) Est GFR (CKD-EPI)NonAf (>60 ml/min/1.73 sqM) Glucose (74-99) mg/dL Calcium (8.4-10.2) mg/dL Magnesium (1.6-2.3) mg/dL Total Bilirubin (0.2-1.3) mg/dL AST (14-36) U/L ALT (4-34) U/L Alkaline Phosphatase (38-126) U/L Troponin I <0.012 (0.000-0.034) ng/mL NT-Pro-B Natriuret Pep 39 pg/mL Total Protein (6.3-8.2) g/dL Albumin (3.5-5.0) g/dL Lipase (23-300) U/L - EKG Data EKG Comments: Ventricular rate 60, DC interval 122, QRS 90, QT/QTc 440/ 440. Normal sinus rhythm, normal EKG, no concern for acute ischemia. (Mata Ngo) Disposition Is patient prescribed a controlled substance at d/c from ED?: No <Mata Ngo - Last Filed: 04/06/20 03:14> Is patient prescribed a controlled substance at d/c from ED?: No <Roselyn Seymour - Last Filed: 04/06/20 04:59> Clinical Impression: Constipation Disposition: HOME SELF-CARE Condition: Stable Instructions (If sedation given, give patient instructions): Constipation (ED) Additional Instructions: Follow-up with PCP tomorrow. Return to ER if condition worsens. Referrals: Chris Bocanegra MD [Primary Care Provider] - 1-2 days
[2020-04-06 10:33] VITALS: BP 128/99; PULSE 71; RESP 18; TEMP 98.4
== END 2020-04-06 05:20 | disposition home or self-care (01) ==
LOC: EC 01:04
DX: K59.00 Constipation, unspecified (principal); R07.9 Chest pain, unspecified; R14.0 Abdominal distension (gaseous); G40.909 Epilepsy, unspecified, not intractable, without status epilepticus; J44.9 Chronic obstructive pulmonary disease, unspecified; F17.200 Nicotine dependence, unspecified, uncomplicated; Z79.51 Long term (current) use of inhaled steroids; Z79.899 Other long term (current) drug therapy; Z91.018 Allergy to other foods; Z91.09 Other allergy status, other than to drugs and biological substances; Z98.51 Tubal ligation status; Z86.73 Personal history of transient ischemic attack (TIA), and cerebral infarction without residual deficits
CPT/HCPCS: 36415; 71046; 74018; 80053; 83690; 83735; 83880; 84484; 85025; 85610; 85730; 93005; 99285

== ENCOUNTER 2020-04-06 11:24 | Emergency (ER) | payer MEDICARE, OTHER ==
[2020-04-06 11:33] VITALS: RESP 16
[2020-04-06] MEDS ORDERED: ASPIRIN 81 MG PO STA (11:56)
--- NOTE | 2020-04-06 12:03 | ED ---
SOB HPI - General Chief Complaint: Shortness of Breath Stated Complaint: Chest pain,ELIZ Time Seen by Provider: 04/06/20 11:32 Source: patient Mode of arrival: EMS Limitations: no limitations - History of Present Illness Initial Comments: 49-year-old female with history of TBI, COPD, current everyday smoker presenting today for chief complaint of chest pressure shortness of breath. Patient states around 3 AM she developed chest pressure that is worsened with a peak at 9 AM she states is starting to get slightly better now. Patient states that it is a pushing sensation on the left side of her chest that comes and goes. Patient states for slightly short of breath. Triage states the patient was complaining of these symptoms yesterday however patient states that she did not have the symptoms began early this morning. Patient denies hemoptysis, history DVT/PE, jaw or arm pain, denies thoracic back pain, denies syncope, presyncope, denies leg swelling, SOB with lying flat. Patient states her A/C is out and she noted that her symptoms seemed to begin when she was hot. Patient denies additional complaints. Upon arrival patient appears well there is no signs of acute distress. She appears well nontoxic-without signs of respiratory distress. - Related Data Home Medications Medication Instructions Recorded Confirmed Hydrochlorothiazide [Hydrodiuril] 50 mg PO DAILY 07/23/14 04/06/20 Dextroamphetamine/Amphetamine 20 mg PO DAILY 10/17/17 04/06/20 [Adderall] levETIRAcetam [Keppra] 500 mg PO DAILY 10/17/17 04/06/20 ARIPiprazole [Abilify] 5 mg PO HS 02/29/20 04/06/20 Potassium Chloride 10 meq PO DAILY 02/29/20 04/06/20 Albuterol Inhaler [Ventolin Hfa 2 puff INHALATION RT-Q4H PRN 03/31/20 04/06/20 Inhaler] Fluticasone/Umeclidin/Vilanter 1 puff INHALATION RT-DAILY 04/05/20 04/06/20 [Trelegy Ellipta 100-62.5-25] Previous Rx's Medication Instructions Recorded Aspirin 81 mg PO DAILY chew 03/03/20 Allergies Allergy/AdvReac Type Severity Reaction Status Date / Time cat dander Allergy Rash/Hives Verified 07/10/20 11:33 tomato Allergy Nausea Verified 04/06/20 11:33 Review of Systems ROS Statement: Those systems with pertinent positive or pertinent negative responses have been documented in the HPI. ROS Other: All systems not noted in ROS Statement are negative. 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 had rt sided weakness.in december 2013 in with atypical c/p-neg cardiac workup. pt states is on seizure meds, but has never had a seizure. History of Any Multi-Drug Resistant Organisms: None Reported Past Surgical History: Section, Tonsillectomy, Tubal Ligation Additional Past Surgical History / Comment(s): trach and reversal Past Anesthesia/Blood Transfusion Reactions: No Reported Reaction Past Psychological History: Anxiety Smoking Status: Current every day smoker Past Alcohol Use History: None Reported Past Drug Use History: None Reported General Exam - General Exam Comments Initial Comments: General: The patient is awake and alert, in no distress Eye: +3 mm pupils are equal, round and reactive to light, extra-ocular movements are intact. No nystagmus. There is normal conjunctiva bilaterally. No signs of icterus. Ears, nose, mouth and throat: There are moist mucous membranes and no oral lesions. Neck: The neck is supple, there is no tenderness or JVD. Cardiovascular: There is a regular rate and rhythm. No murmur, rub or gallop is appreciated. Respiratory: Lungs are clear to auscultation, respirations are non-labored, breath sounds are equal. No wheezes, stridor, rales, or rhonchi. Gastrointestinal: Soft, non-distended, non-tender abdomen without masses or organomegaly noted. There is no rebound or guarding present. Musculoskeletal: Normal ROM, no tenderness. Strength 5/5. Sensation intact. Radial pulses equal bilaterally 2+. Neurological: A&O x 3. CN II-XII intact grossly, There are no obvious motor or sensory deficits. Coordination appears grossly intact. Speech is normal. Skin: Skin is warm and dry and no rashes or lesions are noted. Psychiatric: Cooperative, appropriate mood & affect, normal judgment. Limitations: no limitations Course Vital Signs 04/06/20 04/06/20 11:30 15:41 Temperature 98.3 F 97.8 F Pulse Rate 67 79 Respiratory 16 16 Rate Blood Pressure 120/79 138/70 O2 Sat by Pulse 99 98 Oximetry Medical Decision Making - Medical Decision Making Labs stable Pt presents for CP states started when A/C went out. Patient EKG no findings consistent wtih ACS. adria has no current CP. No current SOB. Patient VS WNL. patient initial troponin (-). No history of DM, HTN, CAD. Patient case discsused with Dr. Freeman who reviewed labs, recommend 2nd troponin given low heart score. Patient is agreeable to care plan and discharge. Patient discharged appearing well, in no distress. - Lab Data Result diagrams: 04/06/20 11:58 04/06/20 11:58 Lab Results 04/06/20 04/06/20 04/06/20 Range/Units 11:58 11:58 11:58 WBC 11.9 H (3.8-10.6) k/uL RBC 4.23 (3.80-5.40) m/uL Hgb 12.7 (11.4-16.0) gm/dL Hct 39.8 (34.0-46.0) % MCV 94.1 (80.0-100.0) fL MCH 30.0 (25.0-35.0) pg MCHC 31.8 (31.0-37.0) g/dL RDW 13.8 (11.5-15.5) % Plt Count 294 (150-450) k/uL Neutrophils % 68 % Lymphocytes % 24 % Monocytes % 4 % Eosinophils % 2 % Basophils % 0 % Neutrophils # 8.1 H (1.3-7.7) k/uL Lymphocytes # 2.9 (1.0-4.8) k/uL Monocytes # 0.5 (0-1.0) k/uL Eosinophils # 0.2 (0-0.7) k/uL Basophils # 0.1 (0-0.2) k/uL PT 9.4 (9.0-12.0) sec INR 0.9 (<1.2) APTT 23.7 (22.0-30.0) sec Sodium 137 (137-145) mmol/L Potassium 3.8 (3.5-5.1) mmol/L Chloride 101 (98-107) mmol/L Carbon Dioxide 31 H (22-30) mmol/L Anion Gap 5 mmol/L BUN 11 (7-17) mg/dL Creatinine 0.63 (0.52-1.04) mg/dL Est GFR (CKD-EPI)AfAm >90 (>60 ml/min/1.73 sqM) Est GFR (CKD-EPI)NonAf >90 (>60 ml/min/1.73 sqM) Glucose 102 H (74-99) mg/dL Calcium 9.0 (8.4-10.2) mg/dL Magnesium 2.2 (1.6-2.3) mg/dL Total Bilirubin 0.4 (0.2-1.3) mg/dL AST 19 (14-36) U/L ALT 36 H (4-34) U/L Alkaline Phosphatase 76 (38-126) U/L Troponin I (0.000-0.034) ng/mL Total Protein 6.4 (6.3-8.2) g/dL Albumin 3.9 (3.5-5.0) g/dL 04/06/20 04/06/20 Range/Units 11:58 14:18 WBC (3.8-10.6) k/uL RBC (3.80-5.40) m/uL Hgb (11.4-16.0) gm/dL Hct (34.0-46.0) % MCV (80.0-100.0) fL MCH (25.0-35.0) pg MCHC (31.0-37.0) g/dL RDW (11.5-15.5) % Plt Count (150-450) k/uL Neutrophils % % Lymphocytes % % Monocytes % % Eosinophils % % Basophils % % Neutrophils # (1.3-7.7) k/uL Lymphocytes # (1.0-4.8) k/uL Monocytes # (0-1.0) k/uL Eosinophils # (0-0.7) k/uL Basophils # (0-0.2) k/uL PT (9.0-12.0) sec INR (<1.2) APTT (22.0-30.0) sec Sodium (137-145) mmol/L Potassium (3.5-5.1) mmol/L Chloride (98-107) mmol/L Carbon Dioxide (22-30) mmol/L Anion Gap mmol/L BUN (7-17) mg/dL Creatinine (0.52-1.04) mg/dL Est GFR (CKD-EPI)AfAm (>60 ml/min/1.73 sqM) Est GFR (CKD-EPI)NonAf (>60 ml/min/1.73 sqM) Glucose (74-99) mg/dL Calcium (8.4-10.2) mg/dL Magnesium (1.6-2.3) mg/dL Total Bilirubin (0.2-1.3) mg/dL AST (14-36) U/L ALT (4-34) U/L Alkaline Phosphatase (38-126) U/L Troponin I <0.012 <0.012 (0.000-0.034) ng/mL Total Protein (6.3-8.2) g/dL Albumin (3.5-5.0) g/dL Disposition Clinical Impression: Chest pain, SOB (shortness of breath) Disposition: HOME SELF-CARE Condition: Good Instructions (If sedation given, give patient instructions): Chest Pain (ED) Additional Instructions: Please use medication as discussed. Please follow-up with family doctor in the next 2 days. Please return to emergency room if the symptoms increase or worsen or for any other concerns. Is patient prescribed a controlled substance at d/c from ED?: No Referrals: Chris Bocanegra MD [Primary Care Provider] - 1-2 days Time of Disposition: 15:14
[2020-04-06 12:21] LABS: Basophils # (A) 0.1 k/uL (0-0.2); Basophils % (A) 0 %; Eosinophils # (A) 0.2 k/uL (0-0.7); Eosinophils % (A) 2 %; HCT 39.8 % (34.0-46.0); HGB 12.7 gm/dL (11.4-16.0); Lymphocytes # (A) 2.9 k/uL (1.0-4.8); Lymphocytes % (A) 24 %; MCHC 31.8 g/dL (31.0-37.0); MCV 94.1 fL (80.0-100.0); Mean Platelet Volume 8.1; Monocytes # (A) 0.5 k/uL (0-1.0); Monocytes % (A) 4 %; Neutrophils # (A) 8.1 k/uL (1.3-7.7); Neutrophils % (A) 68 %; Platelet Count 294 k/uL (150-450); RBC 4.23 m/uL (3.80-5.40); RDW 13.8 % (11.5-15.5); WBC 11.9 k/uL (3.8-10.6)
[2020-04-06 12:31] LABS: ALT 36 U/L (4-34); AST 19 U/L (14-36); African American GFR (CKD) >90 (>60 ml/min/1.73 sqM); Albumin 3.9 g/dL (3.5-5.0); Alkaline Phosphatase 76 U/L (38-126); Anion Gap 5 mmol/L; Blood Urea Nitrogen 11 mg/dL (7-17); Carbon Dioxide 31 mmol/L (22-30); Chloride 101 mmol/L (98-107); Glucose 102 mg/dL (74-99); Magnesium 2.2 mg/dL (1.6-2.3); Non-African American GFR(CKD) >90 (>60 ml/min/1.73 sqM); Potassium 3.8 mmol/L (3.5-5.1); Sodium 137 mmol/L (137-145); Total Bilirubin 0.4 mg/dL (0.2-1.3); Total Protein 6.4 g/dL (6.3-8.2)
[2020-04-06 12:35] LABS: INR 0.9 (<1.2); Partial Thromboplastin Time 23.7 sec (22.0-30.0); Prothrombin Time 9.4 sec (9.0-12.0)
--- NOTE | 2020-04-06 12:57 | XR ---
EXAMINATION TYPE: XR chest 2V DATE OF EXAM: 04/06/2020 COMPARISON: 04/06/2020 HISTORY: Chest pain TECHNIQUE: Frontal and lateral views of the chest are obtained. FINDINGS: There is no focal air space opacity. No evidence for pneumothorax. No pleural effusion. The cardiac silhouette size is within normal limits. The osseous structures are grossly intact. IMPRESSION: 1. No acute cardiopulmonary process.
[2020-04-06 15:42] VITALS: BP 138/70; PULSE 79; TEMP 97.8
== END 2020-04-06 15:41 | disposition home or self-care (01) ==
LOC: EC 11:24
DX: R07.89 Other chest pain (principal); G40.909 Epilepsy, unspecified, not intractable, without status epilepticus; J44.9 Chronic obstructive pulmonary disease, unspecified; F17.200 Nicotine dependence, unspecified, uncomplicated; Z79.899 Other long term (current) drug therapy; Z79.51 Long term (current) use of inhaled steroids; Z91.018 Allergy to other foods; Z91.09 Other allergy status, other than to drugs and biological substances; Z86.73 Personal history of transient ischemic attack (TIA), and cerebral infarction without residual deficits
CPT/HCPCS: 36415; 71046; 80053; 83735; 84484; 85025; 85610; 85730; 93005; 99285

== ENCOUNTER 2020-05-31 11:17 | Observation (INO) | payer MEDICARE, OTHER ==
[2020-05-31] MEDS ORDERED: ASPIRIN 81 MG PO STA (11:30)
[2020-05-31] MEDS ORDERED: NITROGLYCERIN SL TABS 0.4 MG TAB SUBLINGUAL STA (11:30)
--- NOTE | 2020-05-31 11:30 | ED ---
Chest Pain HPI - General Chief Complaint: Chest Pain Stated Complaint: Dizziness Time Seen by Provider: 05/31/20 11:23 Source: patient, EMS Mode of arrival: EMS Limitations: no limitations - History of Present Illness Initial Comments: Patient is a 49-year-old female with history of mild right-sided paralysis and paresthesias at baseline secondary to CVA, hypertension, COPD, hyperlipidemia, presenting to the emergency department with chief complaint of chest pain. Patient reports she take a shower this morning and felt dizzy where the room was spinning around her. Patient states afterwards she went and made a bolus serial and developed a left-sided chest pain without any radiation. Patient reports the pain is sharp in nature and is only localized to the left side of the chest. States it is intermittent in nature and lasts for about 10-15 minutes. Patient states pain is not reproducible with palpation but it is exacerbated on exertion. She also reports dyspnea on exertion. She also reports diaphoretic episodes since the incident occurred. States she took her baby aspirin this morning and decided to call and ambulate. Denies any headaches, abdominal pain. Her vision is affected in the right eye after the CVA. - Related Data Home Medications Medication Instructions Recorded Confirmed hydroCHLOROthiazide [Hydrodiuril] 50 mg PO DAILY 07/23/14 04/06/20 Dextroamphetamine/Amphetamine 20 mg PO DAILY 10/17/17 04/06/20 [Adderall] levETIRAcetam [Keppra] 500 mg PO DAILY 10/17/17 04/06/20 ARIPiprazole [Abilify] 5 mg PO HS 02/29/20 04/06/20 Potassium Chloride 10 meq PO DAILY 02/29/20 04/06/20 Albuterol Inhaler [Ventolin Hfa 2 puff INHALATION RT-Q4H PRN 03/31/20 04/06/20 Inhaler] Fluticasone/Umeclidin/Vilanter 1 puff INHALATION RT-DAILY 04/05/20 04/06/20 [Trelegy Ellipta 100-62.5-25] Previous Rx's Medication Instructions Recorded Aspirin 81 mg PO DAILY chew 03/03/20 Allergies Allergy/AdvReac Type Severity Reaction Status Date / Time cat dander Allergy Rash/Hives Verified 04/06/20 11:33 tomato Allergy Nausea Verified 04/06/20 11:33 Review of Systems ROS Statement: Those systems with pertinent positive or pertinent negative responses have been documented in the HPI. ROS Other: All systems not noted in ROS Statement are negative. EKG Findings - EKG Comments: EKG Findings:: Sinus rhythm with no ST or T-wave changes. Ventricular rate 65, IL 112, QRS 84, QTC 413. 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 had rt sided weakness.in december 2013 in with atypical c/p-neg cardiac workup. pt states is on seizure meds, but has never had a seizure. History of Any Multi-Drug Resistant Organisms: None Reported Past Surgical History: Section, Tonsillectomy, Tubal Ligation Additional Past Surgical History / Comment(s): trach and reversal Past Anesthesia/Blood Transfusion Reactions: No Reported Reaction Past Psychological History: Anxiety Past Alcohol Use History: None Reported Past Drug Use History: None Reported General Exam Limitations: no limitations General appearance: alert, in no apparent distress, obese Head exam: Present: atraumatic, normocephalic, normal inspection Eye exam: Present: normal appearance, PERRL, EOMI Pupils: Present: normal accommodation ENT exam: Present: normal exam, normal oropharynx, mucous membranes moist, TM's normal bilaterally, normal external ear exam Neck exam: Present: normal inspection, full ROM. Absent: tenderness Respiratory exam: Present: normal lung sounds bilaterally. Absent: respiratory distress, wheezes, rales Cardiovascular Exam: Present: regular rate, normal rhythm, normal heart sounds GI/Abdominal exam: Present: soft. Absent: distended, tenderness, guarding Extremities exam: Present: normal inspection, full ROM, normal capillary refill, other (Inspector General strength slightly weak on the right arm. +2 ulnar and radial pulses bilaterally. +2 dorsalis pedis and posterior tibials bilateral.). Absent: tenderness, pedal edema, joint swelling, calf tenderness Back exam: Present: normal inspection, full ROM. 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 This is atypical chest pain with typical features. Chest x-ray shows no definitive acute processes. Coags within normal limits. CBC CMP unremarkable. EKG showing sinus rhythm with no ST or T-wave changes. Initial troponin is negative. D- dimer is also negative. Chart reviewed and patient did have a dobutamine stress test at another facility several months ago with no ischemic findings. Patient does not see a yard worker an outpatient settings. She is somewhat of a poor historian. Patient will be admitted for cardiac observation. Case discussed with Admitting is DR Chavez Cardiology consulted Disposition Clinical Impression: Chest pain, Dyspnea on exertion Disposition: ADMITTED IP TO THIS [facility] Condition: Stable Instructions (If sedation given, give patient instructions): Chest Pain (ED) Additional Instructions: Patient will be admitted Is patient prescribed a controlled substance at d/c from ED?: No Referrals: Chris Bocanegra MD [Primary Care Provider] - 1-2 days Time of Disposition: 13:12
[2020-05-31 12:10] LABS: Basophils # (A) 0.1 k/uL (0-0.2); Basophils % (A) 1 %; Eosinophils # (A) 0.2 k/uL (0-0.7); Eosinophils % (A) 3 %; HCT 39.7 % (34.0-46.0); Lymphocytes # (A) 2.4 k/uL (1.0-4.8); Lymphocytes % (A) 28 %; MCH 30.4 pg (25.0-35.0); MCHC 32.7 g/dL (31.0-37.0); MCV 93.1 fL (80.0-100.0); Mean Platelet Volume 7.7; Monocytes # (A) 0.4 k/uL (0-1.0); Monocytes % (A) 5 %; Neutrophils # (A) 5.5 k/uL (1.3-7.7); Neutrophils % (A) 63 %; Platelet Count 274 k/uL (150-450); RBC 4.27 m/uL (3.80-5.40); RDW 13.4 % (11.5-15.5); WBC 8.6 k/uL (3.8-10.6)
[2020-05-31 12:23] LABS: D-Dimer 0.3 mg/L FEU (<0.60); INR 0.9 (<1.2); Partial Thromboplastin Time 23.8 sec (22.0-30.0); Prothrombin Time 9.6 sec (9.0-12.0)
[2020-05-31 12:26] LABS: ALT 22 U/L (4-34); AST 23 U/L (14-36); African American GFR (CKD) >90 (>60 ml/min/1.73 sqM); Albumin 3.7 g/dL (3.5-5.0); Alkaline Phosphatase 65 U/L (38-126); Anion Gap 4 mmol/L; Blood Urea Nitrogen 15 mg/dL (7-17); Calcium 9.2 mg/dL (8.4-10.2); Carbon Dioxide 30 mmol/L (22-30); Chloride 104 mmol/L (98-107); Glucose 105 mg/dL (74-99); Magnesium 1.9 mg/dL (1.6-2.3); Non-African American GFR(CKD) >90 (>60 ml/min/1.73 sqM); Potassium 3.6 mmol/L (3.5-5.1); Sodium 138 mmol/L (137-145); Total Bilirubin 0.4 mg/dL (0.2-1.3); Total Protein 6.4 g/dL (6.3-8.2)
--- NOTE | 2020-05-31 12:36 | XR ---
EXAMINATION TYPE: XR chest 2V DATE OF EXAM: 05/31/2020 COMPARISON: 04/06/2020 HISTORY: 49-year-old female with chest pain TECHNIQUE: AP and lateral views FINDINGS: Heart normal size. Some low lung volumes with crowded vascular markings. Hazy lung densities relating to large patient body habitus. Underpenetration of the left costophrenic angle. No definite consolid ation or pleural effusion. Moderate endplate spondylosis mid to lower thoracic spine. IMPRESSION: Exam limitations due to underpenetration and hypoventilatory changes. No definite acute cardiopulmona ry process.
[2020-05-31] MEDS ORDERED: NITROGLYCERIN SL TABS 0.4 MG TAB SUBLINGUAL PRN (13:06)
[2020-05-31 14:29] VITALS: BP 94/68; PULSE 82; RESP 16; TEMP 98.2
[2020-05-31] MEDS ORDERED: Potassium Replacement Protocol 1 EACH MISC MISCELLANE PRN (14:44)
[2020-05-31] MEDS ORDERED: ALBUTEROL NEBULIZED 2.5 MG/3 ML INHALATION PRN (14:45)
[2020-05-31] MEDS ORDERED: Magnesium Replacement Protocol 1 EACH MISC MISCELLANE PRN (14:45)
--- NOTE | 2020-05-31 14:48 | P.CRDCN ---
History of Present Illness History of present illness: HISTORY OF PRESENTING ILLNESS This is a pleasant 49-year-old occasion female past medical history significant for hypertension, COPD, CVA with right-sided paresthesia and chronic nicotine de pendence. She denies prior history of coronary artery disease and does not follow with a legal contracts specialist regularly. We have been asked to see in consultation for chest pain. States this morning she woke up feeling in her usual state of health and proceeded to take a shower. While she was in the shower she started feeling acutely dizzy like the room was spinning. She had braced herself against the wall. Her dizziness persisted but she was able to walk to the kitchen. She was getting herself some breakfast when she started having sharp pains in the midsternal region. They were brief lasting less than 2-3 seconds each time but intermittent and ongoing. She presented to the hospital at 11:30 this morning with ongoing dizziness and chest discomfort. According to the patient on arrival to the emergency department she was given sublingual nitroglycerin which did relieve her chest discomfort. She is seen and examined resting comfortably in no acute distress. She has no further symptoms chest discomfort. DIAGNOSTICS EKG reveals it is mechanism with no acute ST or T wave abnormalities noted. Chest xray negative for an acute cardiopulmonary process. Laboratory reviewed, CBC unremarkable, d-dimer 0.3, sodium 138, potassium 3.6, creatinine 0.66, magnesium 1.9, cardiac enzymes negative x1. Current cardiac medications include hydrochlorothiazide 50 mg daily. She underwent dobutamine stress test in February 2020 at [facility] that was negative for stress induced ischemia. Full echocardiogram was also completed and unremarkable with no significant wall motion abnormalities and EF 55-60%. REVIEW OF SYSTEMS At the time of my exam: CONSTITUTIONAL: Denies fever or chills. CARDIOVASCULAR: Denies chest pain, shortness of breath, orthopnea, PND or palpitations. RESPIRATORY: Denies cough. GASTROINTESTINAL: Denies abdominal pain, diarrhea, constipation, nausea or vomiting. MUSCULOSKELETAL: Denies myalgias. NEUROLOGIC: Denies numbness, tingling or weakness. ENDOCRINE: Denies fatigue, weight change, polydipsia or polyurina. GENITOURINARY: Denies burning, hematuria or urgency with micturation. HEMATOLOGIC: Denies history of anemia or bleeding. PHYSICAL EXAMINATION Blood pressure 106/66 heart rate 65 afebrile and maintaining oxygen saturation on room air. CONSTITUTIONAL: No apparent distress. HEENT: Head is normocephalic. Pupils are equal, round. Sclerae anicteric. Mucous membranes of the mouth are moist. No JVD. No carotid bruit. CHEST EXAMINATION: Lungs are clear to auscultation. No chest wall tenderness is noted on palpation or with deep breathing. HEART EXAMINATION: Regular rate and rhythm. S1, S2 heard. No murmurs, gallops or rub. ABDOMEN: Soft, nontender. Positive bowel sounds. EXTREMITIES: 2+ peripheral pulses, no lower extremity edema and no calf tenderness. NEUROLOGIC EXAMINATION: Patient is awake, alert and oriented x3. ASSESSMENT Chest pain, atypical. Hypertension History of CVA with right sided residual weakness COPD Chronic nicotine dependence PLAN Continue to obtain serial cardiac enzymes to rule out an acute event. Pain is atypical for angina, sounds like possibility of esophageal spasm. Recent cardiac work-up in February 2020 unremarkable. No further cardiac work-up required at this time. Primary team to consider other etiologies for her chest pain. Follow up with Dr. Glass upon discharge. Thank you kindly for this consultation. Nurse Practitioner note has been reviewed, I agree with a documented findings and plan of care. Patient was seen and examined. 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 had rt sided weakness.in december 2013 in with atypical c/p-neg cardiac workup. pt states is on seizure meds, but has never had a seizure. History of Any Multi-Drug Resistant Organisms: None Reported Past Surgical History: Section, Tonsillectomy, Tubal Ligation Additional Past Surgical History / Comment(s): trach and reversal Past Anesthesia/Blood Transfusion Reactions: No Reported Reaction Past Psychological History: Anxiety Past Alcohol Use History: None Reported Past Drug Use History: None Reported Medications and Allergies Home Medications Medication Instructions Recorded Confirmed Type hydroCHLOROthiazide [Hydrodiuril] 50 mg PO DAILY 07/23/14 05/31/20 History Dextroamphetamine/Amphetamine 20 mg PO DAILY 10/17/17 05/31/20 History [Adderall] levETIRAcetam [Keppra] 500 mg PO DAILY 10/17/17 05/31/20 History ARIPiprazole [Abilify] 5 mg PO HS 02/29/20 05/31/20 History Potassium Chloride 10 meq PO DAILY 02/29/20 05/31/20 History Albuterol Inhaler [Ventolin Hfa 2 puff INHALATION RT-Q4H PRN 03/31/20 05/31/20 History Inhaler] Diclofenac Sodium [Voltaren] 75 mg PO BID 05/31/20 05/31/20 History busPIRone HCL 5 mg PO DAILY 05/31/20 05/31/20 History Allergies Allergy/AdvReac Type Severity Reaction Status Date / Time cat dander Allergy Rash/Hives Verified 05/31/20 13:13 tomato Allergy Nausea Verified 05/31/20 13:13 Physical Exam Vitals: Vital Signs Temp Pulse Pulse Resp BP Pulse Ox 05/31/20 13:55 97.7 F 65 18 106/66 99 05/31/20 13:05 65 18 106/66 99 05/31/20 12:02 71 18 104/68 96 05/31/20 11:36 64 05/31/20 11:24 97.7 F 64 18 103/61 97 Intake and Output 05/30/20 05/31/20 05/31/20 22:59 06:59 14:59 Other: Weight 98.883 kg Results 05/31/20 11:31 05/31/20 11:31 Cardiac Enzymes 05/31/20 05/31/20 Range/Units 11:31 11:31 AST 23 (14-36) U/L Troponin I <0.012 (0.000-0.034) ng/mL Coagulation 05/31/20 Range/Units 11:31 PT 9.6 (9.0-12.0) sec APTT 23.8 (22.0-30.0) sec CBC 05/31/20 Range/Units 11:31 WBC 8.6 (3.8-10.6) k/uL RBC 4.27 (3.80-5.40) m/uL Hgb 13.0 (11.4-16.0) gm/dL Hct 39.7 (34.0-46.0) % Plt Count 274 (150-450) k/uL Comprehensive Metabolic Panel 05/31/20 Range/Units 11:31 Sodium 138 (137-145) mmol/L Potassium 3.6 (3.5-5.1) mmol/L Chloride 104 (98-107) mmol/L Carbon Dioxide 30 (22-30) mmol/L BUN 15 (7-17) mg/dL Creatinine 0.66 (0.52-1.04) mg/dL Glucose 105 H (74-99) mg/dL Calcium 9.2 (8.4-10.2) mg/dL AST 23 (14-36) U/L ALT 22 (4-34) U/L Alkaline Phosphatase 65 (38-126) U/L Total Protein 6.4 (6.3-8.2) g/dL Albumin 3.7 (3.5-5.0) g/dL Current Medications Generic Name Dose Route Start Last Admin Trade Name Freq PRN Reason Stop Dose Admin Aspirin 325 mg 06/01/20 09:00 Aspirin PO DAILY VILLA Nitroglycerin 0.4 mg 05/31/20 13:06 Nitrostat SUBLINGUAL Q5M PRN Chest Pain Intake and Output 05/30/20 05/31/20 05/31/20 22:59 06:59 14:59 Other: Weight 98.883 kg Patient Weight 06/01/20 06:59 Weight 98.883 kg 05/31/20 11:31 05/31/20 11:31
[2020-05-31] MEDS ORDERED: levETIRAcetam 500 MG TAB PO SCH (15:00)
[2020-05-31] MEDS ORDERED: PANTOPRAZOLE 40 MG/10 ML VIAL IVP SCH (15:00)
[2020-05-31] MEDS ORDERED: POTASSIUM CHLORIDE ER 10 MEQ TAB.ER.PRT PO SCH (15:00)
--- NOTE | 2020-05-31 19:49 | HP ---
HISTORY AND PHYSICAL This is a 49-year-old white female who presented with a history of hypertension, COPD, CVA, right-sided weakness, chronic nicotine addiction, history of coronary disease, does not follow with Cardiology and had a normal stress test a week or 2 ago. To me she states she has been dizzy and she is short of breath, but she ran out of her inhaler like 3 or 4 days ago. Maybe the room was spinning, possibly some vertigo and shortness of breath due to asthma/COPD. She continues to smoke and she ran out of her inhaler at home. Cardiology has also seen the patient she is cleared from cardiac. She had a negative D-dimer, negative chest x-ray. EKG is sinus rhythm. Chest x-ray is negative. D-dimer is negative. Electrolytes are normal. Magnesium 1.9. Cardiac enzymes are negative x1. She had dobutamine stress test in 2019 in February, as mentioned, that was negative. Ejection fraction 55% to 60%. REVIEW OF SYSTEMS: Fourteen-point review of systems positive for anxiety, depression. Otherwise negative. PHYSICAL EXAMINATION: Blood pressure is 106/66, maintaining good oxygen on room air. CARDIOVASCULAR: S1, S2. LUNGS: Decreased breath sounds x4. GI: Distended. Obesity. EXTREMITIES: No cyanosis, clubbing or edema. Cranial nerves are intact. ASSESSMENT: 1. Atypical chest pain. 2. Chronic obstructive pulmonary disease, asthma exacerbation due to running out of her inhaler. 3. Worsened hypertension. 4. History of cerebrovascular accident, right-sided weakness. 5. Chronic obstructive pulmonary disease. 6. Nicotine addiction. Cardiac cleared her for discharge. Chest x-ray is normal. D-dimer is negative. Suspect the cause is her running out of her inhaler at home and continued smoking. I will write her a prescription for Trelegy inhaler 1 puff a day and continue to quit smoking and follow up as an outpatient. Home medicines were reviewed: HydroDIURIL, Adderall, Keppra, Abilify, potassium chloride, Ventolin HFA, Anoro 200/55 one puff daily, and BuSpar. ALLERGIES: TOMATO and CAT DANDER. Please see further orders. Possibly discharge home today. MMODL / IJN: [id number] /
[2020-05-31] MEDS ORDERED: ARIPiprazole 5 MG TAB PO SCH (21:00)
[2020-06-01] MEDS ORDERED: ASPIRIN 325 MG TAB PO SCH (09:00)
[2020-06-01] MEDS ORDERED: busPIRone HCl 5 MG TAB PO SCH (09:00)
== END 2020-05-31 18:55 | disposition home or self-care (01) ==
LOC: EC 11:17 → 1SOBS 13:13
PROVIDERS: ADMIT Family Medicine; ATTEND Family Medicine
DX: J44.1 Chronic obstructive pulmonary disease with (acute) exacerbation (principal); Z91.128 Patient's intentional underdosing of medication regimen for other reason; R07.89 Other chest pain; I10 Essential (primary) hypertension; I69.351 Hemiplegia and hemiparesis following cerebral infarction affecting right dominant side; I69.398 Other sequelae of cerebral infarction; R06.09 Other forms of dyspnea; F17.200 Nicotine dependence, unspecified, uncomplicated; F41.9 Anxiety disorder, unspecified; F32.9 Major depressive disorder, single episode, unspecified; E66.9 Obesity, unspecified; Z68.30 Body mass index [BMI] 30.0-30.9, adult; G40.909 Epilepsy, unspecified, not intractable, without status epilepticus; R41.3 Other amnesia; Z87.820 Personal history of traumatic brain injury; Z98.890 Other specified postprocedural states; Z98.51 Tubal ligation status; Z79.899 Other long term (current) drug therapy; Z91.018 Allergy to other foods; Z91.048 Other nonmedicinal substance allergy status
CPT/HCPCS: 96374; 99285; 36415; 93005; 85379; 80053; 80177; 83735; 84484; 85025; 85610; 85730; 71046; G0378; C9113

== ENCOUNTER 2020-06-03 10:58 | Emergency (ER) | payer MEDICARE, OTHER ==
[2020-06-03] MEDS ORDERED: LORazepam 2 MG/ML INJ IM STA (11:24)
[2020-06-03] MEDS ORDERED: IBUPROFEN 600 MG TAB PO STA (11:25)
--- NOTE | 2020-06-03 11:58 | ED ---
General Adult HPI - General Chief complaint: Shortness of Breath Stated complaint: Respiratory Issues Time Seen by Provider: 06/03/20 11:03 Source: patient, EMS Mode of arrival: EMS Limitations: no limitations - History of Present Illness Initial comments: Patient is a 49-year-old female presenting to the emergency department via EMS with complaints of shortness of breath. Patient is also complaining of mild dizziness, nausea. Patient has been here multiple occasions for chest pain and shortness of breath. She was recently discharged 3 days ago for same complaint. Patient has had recent full cardiac workup including stress test and echo in February, chest CT, are multiple troponins and dimers which have been negative. Patient denies any chest pain, abdominal pain, fever, chills. She states she was prescribed an inhaler which she has yet to nut picker. Patient has no further complaints at this time. Upon arrival to the ER, her vital signs are stable, she is in no respiratory distress. - Related Data Home Medications Medication Instructions Recorded Confirmed hydroCHLOROthiazide [Hydrodiuril] 50 mg PO DAILY 07/23/14 05/31/20 Dextroamphetamine/Amphetamine 20 mg PO DAILY 10/17/17 05/31/20 [Adderall] levETIRAcetam [Keppra] 500 mg PO DAILY 10/17/17 05/31/20 ARIPiprazole [Abilify] 5 mg PO HS 02/29/20 05/31/20 Potassium Chloride 10 meq PO DAILY 02/29/20 05/31/20 Albuterol Inhaler [Ventolin Hfa 2 puff INHALATION RT-Q4H PRN 03/31/20 05/31/20 Inhaler] Diclofenac Sodium [Voltaren] 75 mg PO BID 05/31/20 05/31/20 busPIRone HCL 5 mg PO DAILY 05/31/20 05/31/20 Previous Rx's Medication Instructions Recorded Aspirin 325 mg PO DAILY tab 05/31/20 Fluticasone/Umeclidin/Vilanter 1 inhalation INHALATION DAILY #1 05/31/20 [Sharon Mcginnis 100-62.5-25] device Allergies Allergy/AdvReac Type Severity Reaction Status Date / Time cat dander Allergy Rash/Hives Verified 06/03/20 11:08 tomato Allergy Nausea Verified 06/03/20 11:08 Review of Systems ROS Statement: Those systems with pertinent positive or pertinent negative responses have been documented in the HPI. ROS Other: All systems not noted in ROS Statement are negative. 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 History of Any Multi-Drug Resistant Organisms: None Reported Past Surgical History: Section, Tonsillectomy, Tubal Ligation Additional Past Surgical History / Comment(s): Past trach/peg tube, pt thinks some kind of brain/skull surgery while comatose in 2010 at [facility]. Past Anesthesia/Blood Transfusion Reactions: No Reported Reaction Past Psychological History: Anxiety Smoking Status: Current every day smoker Past Alcohol Use History: None Reported Past Drug Use History: None Reported - Past Family History Mother Family Medical History: Cancer Additional Family Medical History / Comment(s): Mother of cancer, pt does not know what type. Father Family Medical History: Cancer Additional Family Medical History / Comment(s): Father is alive and has had 3 different types of cancer but survived them all. General Exam - General Exam Comments Initial Comments: GENERAL: Patient is well-developed and well-nourished. Patient is nontoxic and in no acute distress. HEAD: Atraumatic, normocephalic. EYES: Pupils equal round and reactive to light, extraocular movements intact, sclera anicteric, conjunctiva are normal. Eyelids were unremarkable. ENT: TMs normal, nares patent, oropharynx clear without exudates. Moist mucous membranes. NECK: Normal range of motion, supple without lymphadenopathy or JVD. LUNGS: Unlabored respirations. Breath sounds clear to auscultation bilaterally and equal. No wheezes rales or rhonchi. HEART: Regular rate and rhythm without murmurs, rubs or gallops. ABDOMEN: Soft, nontender, normoactive bowel sounds. No guarding, no rebound. No masses appreciated. : Deferred MUSCULOSKELETAL: Patient has residual right-sided weakness and paresthesias secondary to CVA, she is at baseline. Normal extremities with adequate strength and normal range of motion, no pitting or edema. No clubbing or cyanosis. NEUROLOGICAL: Patient is alert and oriented x 3. Motor and sensory are also intact. Cranial nerves II through XII grossly intact. Symmetrical smile. Normal speech, normal gait. PSYCH: Normal mood, normal affect. SKIN: Warm, Dry, normal turgor, no rashes or lesions noted. Limitations: no limitations Course Vital Signs 06/03/20 06/03/20 11:04 11:41 Temperature 98.4 F Pulse Rate 71 Respiratory 18 20 Rate Blood Pressure 105/75 O2 Sat by Pulse 98 Oximetry EKG Findings - EKG Comments: EKG Findings:: Normal sinus rhythm, normal ECG, no signs of acute ischemia. Similar to previous EKG on 05/31/2020. Ventricular rate 62, PA interval 120, QTC 418. Medical Decision Making - Medical Decision Making Patient is a 49-year-old female here via EMS with complaints shortness of breath. Patient has been seen in the ER multiple times, most recently discharged 3 days ago. She is also complaining of dizziness today. Her vital signs are stable her exam is unremarkable. Patient has had recent full cardiac workup including stress test and echo done in February, chest CT, multiple troponins and dimers which have been negative. Her EKG today shows no signs of acute ischemia. Chest x-ray also shows no acute process today. Patient is resting comfortably in the ER, no signs of acute distress. On reevaluation, patient was found sleeping in the ER. Discussed with patient and her workup today was normal, recommend following up with her PCP. Recommended also picking up her prescriptions that Dr. Bocanegra prescribed her. She is stable for discharge. Return parameters were discussed with the patient she verbalized understanding. Case discussed with Dr. Wick. Disposition Clinical Impression: Cough, Dyspnea on exertion Disposition: HOME SELF-CARE Condition: Stable Instructions (If sedation given, give patient instructions): Shortness of Breath (ED) Additional Instructions: Please return to the Emergency Department if symptoms worsen or any other concerns. Continue with already prescribed medications. Follow up with PCP. Is patient prescribed a controlled substance at d/c from ED?: No Referrals: Chris Bocanegra MD [Primary Care Provider] - 1-2 days
--- NOTE | 2020-06-03 12:26 | XR ---
EXAMINATION TYPE: XR chest 2V DATE OF EXAM: 06/03/2020 CLINICAL HISTORY: Shortness of breath, dizziness. TECHNIQUE: Frontal and lateral views of the chest are obtained. COMPARISON: 05/31/2020 chest radiograph FINDINGS: The cardiomediastinal silhouette is within normal limits for size. Pulmonary vasculature i s normal. There is no focal air space opacity, pleural effusion, or pneumothorax seen. Degenerative c hanges of the spine. IMPRESSION: No acute cardiopulmonary process.
[2020-06-03 13:06] VITALS: BP 108/73; PULSE 78; RESP 16; TEMP 98
== END 2020-06-03 13:05 | disposition home or self-care (01) ==
LOC: EC 10:58
DX: R06.09 Other forms of dyspnea (principal); R42 Dizziness and giddiness; R11.0 Nausea; R05 Cough; I69.351 Hemiplegia and hemiparesis following cerebral infarction affecting right dominant side; R20.2 Paresthesia of skin; F17.200 Nicotine dependence, unspecified, uncomplicated; J44.9 Chronic obstructive pulmonary disease, unspecified; I25.2 Old myocardial infarction; F41.9 Anxiety disorder, unspecified; Z79.51 Long term (current) use of inhaled steroids; Z79.1 Long term (current) use of non-steroidal anti-inflammatories (NSAID); Z91.048 Other nonmedicinal substance allergy status; Z91.018 Allergy to other foods
CPT/HCPCS: 93005; 71046; 96372; 99285; J2060

== ENCOUNTER 2020-06-06 10:53 | Emergency (ER) | payer MEDICARE, OTHER ==
[2020-06-06] MEDS ORDERED: SODIUM CHLORIDE 0.9% 1,000 ML IV STA (11:13)
[2020-06-06] MEDS ORDERED: KETOROLAC 15 MG/ML 1 ML VIAL IVP STA (11:13)
--- NOTE | 2020-06-06 11:21 | ED ---
General Adult HPI - General Chief complaint: Weakness Stated complaint: general weakness Time Seen by Provider: 06/06/20 11:00 Source: patient, EMS, RN notes reviewed, old records reviewed Mode of arrival: EMS Limitations: no limitations - History of Present Illness Initial comments: This is a 49-year-old female presents emergency department stating that she has been weak over the last month and she doesn't know why. Patient states she has been in the emergency department couple times previously and they stated she was dehydrated. Patient also complains of a little lower abdominal pain but she denies any nausea vomiting or diarrhea patient denies any dysuria hematuria urinary frequency. She denies any abnormal vaginal bleeding. Patient denies any recent fever chills per patient denies chest pain difficulty breathing shortness of breath. - Related Data Home Medications Medication Instructions Recorded Confirmed hydroCHLOROthiazide [Hydrodiuril] 50 mg PO DAILY 07/23/14 06/06/20 Dextroamphetamine/Amphetamine 20 mg PO DAILY 10/17/17 06/06/20 [Adderall] levETIRAcetam [Keppra] 500 mg PO DAILY 10/17/17 06/06/20 ARIPiprazole [Abilify] 5 mg PO HS 02/29/20 06/06/20 Potassium Chloride 10 meq PO DAILY 02/29/20 06/06/20 Albuterol Inhaler [Ventolin Hfa 2 puff INHALATION RT-Q4H PRN 03/31/20 06/06/20 Inhaler] Diclofenac Sodium [Voltaren] 75 mg PO BID 05/31/20 06/06/20 busPIRone HCL 5 mg PO DAILY 05/31/20 06/06/20 Fluticasone/Umeclidin/Vilanter 1 puff INHALATION RT-DAILY 06/06/20 06/06/20 [Trelegy Ellipta 100-62.5-25] Previous Rx's Medication Instructions Recorded Aspirin 325 mg PO DAILY tab 05/31/20 Allergies Allergy/AdvReac Type Severity Reaction Status Date / Time cat dander Allergy Rash/Hives Verified 06/06/20 13:07 tomato AdvReac Nausea Verified 06/06/20 13:07 Review of Systems ROS Statement: Those systems with pertinent positive or pertinent negative responses have been documented in the HPI. ROS Other: All systems not noted in ROS Statement are negative. Past Medical History Past Medical History: Chest Pain / Angina, COPD, CVA/TIA, Memory Impairment, Neurologic Disorder Additional Past Medical History / Comment(s): Pt has history of brain injury fol lowing fall down flight of stairs in 2010 and was comatose for 3 months, then when she regained consciousness she had a CVA with R sided paralysis/parasthesia/decreased vision R eye/decreased hearing R ear/loss of sensation r inside of mouth-takes care with what food she eats/no longer has feelings of hunger/cannot taste or smell, pt denies ever having a seizure, hypothyroid, occasional pedal edema, occasional headaches. History of Any Multi-Drug Resistant Organisms: None Reported Past Surgical History: Section, Tonsillectomy, Tubal Ligation Additional Past Surgical History / Comment(s): Past trach/peg tube, pt thinks some kind of brain/skull surgery while comatose in 2010 at [facility]. Past Anesthesia/Blood Transfusion Reactions: No Reported Reaction Past Psychological History: Anxiety Smoking Status: Current every day smoker Past Alcohol Use History: None Reported Past Drug Use History: None Reported - Past Family History Mother Family Medical History: Cancer Additional Family Medical History / Comment(s): Mother of cancer, pt does not know what type. Father Family Medical History: Cancer Additional Family Medical History / Comment(s): Father is alive and has had 3 different types of cancer but survived them all. General Exam - General Exam Comments Initial Comments: GENERAL: Patient is well-developed and well-nourished. Patient is nontoxic and well- hydrated and is in no acute distress. ENT: Neck is soft and supple. No significant lymphadenopathy is noted. Oropharynx is clear. Moist mucous membranes. Neck has full range of motion without el iciting any pain. EYES: The sclera were anicteric and conjunctiva were pink and moist. Extraocular movements were intact and pupils were equal round and reactive to light. Eyelids were unremarkable. PULMONARY: Unlabored respirations. Good breath sounds bilaterally. No audible rales rhonchi or wheezing was noted. CARDIOVASCULAR: Patient is a regular rate and rhythm no murmurs are heard. ABDOMEN: Soft and nontender with normal bowel sounds. SKIN: Skin is clear with no lesions or rashes and otherwise unremarkable. NEUROLOGIC: Patient is alert and oriented x3. Cranial nerves II through XII are grossly intact. Motor and sensory are also intact. Normal speech, volume and content. Symmetrical smile. MUSCULOSKELETAL: Normal extremities with adequate strength and full range of motion. No lower extremity swelling or edema. No calf tenderness. LYMPHATICS: No significant lymphadenopathy is noted PSYCHIATRIC: Normal psychiatric evaluation. Limitations: no limitations Course Vital Signs 06/06/20 10:56 Temperature 98.7 F Pulse Rate 75 Respiratory 16 Rate Blood Pressure 117/87 O2 Sat by Pulse 96 Oximetry Medical Decision Making - Medical Decision Making EKG shows a normal sinus rhythm at 66 bpm MS interval 222 QRS is 84 Q-T i ntervals 414 QTC is 434 per patient's EKG shows no ST segment elevation or depression. Patient was able to ambulate without problem in the emergency department. - Lab Data Result diagrams: 06/06/20 11:28 06/06/20 11:28 Lab Results 06/06/20 06/06/20 06/06/20 Range/Units 11:28 11:28 11:28 WBC 8.4 (3.8-10.6) k/uL RBC 4.19 (3.80-5.40) m/uL Hgb 12.5 (11.4-16.0) gm/dL Hct 39.1 (34.0-46.0) % MCV 93.4 (80.0-100.0) fL MCH 29.8 (25.0-35.0) pg MCHC 31.9 (31.0-37.0) g/dL RDW 13.4 (11.5-15.5) % Plt Count 249 (150-450) k/uL Neutrophils % 66 % Lymphocytes % 25 % Monocytes % 5 % Eosinophils % 3 % Basophils % 0 % Neutrophils # 5.6 (1.3-7.7) k/uL Lymphocytes # 2.1 (1.0-4.8) k/uL Monocytes # 0.4 (0-1.0) k/uL Eosinophils # 0.2 (0-0.7) k/uL Basophils # 0.0 (0-0.2) k/uL PT 9.5 (9.0-12.0) sec INR 0.9 (<1.2) APTT 21.8 L (22.0-30.0) sec Sodium 139 (137-145) mmol/L Potassium 3.9 (3.5-5.1) mmol/L Chloride 103 (98-107) mmol/L Carbon Dioxide 28 (22-30) mmol/L Anion Gap 8 mmol/L BUN 15 (7-17) mg/dL Creatinine 0.63 (0.52-1.04) mg/dL Est GFR (CKD-EPI)AfAm >90 (>60 ml/min/1.73 sqM) Est GFR (CKD-EPI)NonAf >90 (>60 ml/min/1.73 sqM) Glucose 98 (74-99) mg/dL Plasma Lactic Acid Tin (0.7-2.0) mmol/L Calcium 9.3 (8.4-10.2) mg/dL Magnesium 2.0 (1.6-2.3) mg/dL Total Bilirubin 0.4 (0.2-1.3) mg/dL AST 25 (14-36) U/L ALT 24 (4-34) U/L Alkaline Phosphatase 73 (38-126) U/L Troponin I (0.000-0.034) ng/mL Total Protein 6.8 (6.3-8.2) g/dL Albumin 4.0 (3.5-5.0) g/dL Urine Color Urine Appearance (Clear) Urine pH (5.0-8.0) Ur Specific Marshall (1.001-1.035) Urine Protein (Negative) Urine Glucose (UA) (Negative) Urine Ketones (Negative) Urine Blood (Negative) Urine Nitrite (Negative) Urine Bilirubin (Negative) Urine Urobilinogen (<2.0) mg/dL Ur Leukocyte Esterase (Negative) Urine Opiates Screen (NotDetected) Ur Oxycodone Screen (NotDetected) Urine Methadone Screen (NotDetected) Ur Propoxyphene Screen (NotDetected) Ur Barbiturates Screen (NotDetected) U Tricyclic Antidepress (NotDetected) Ur Phencyclidine Scrn (NotDetected) Ur Amphetamines Screen (NotDetected) U Methamphetamines Scrn (NotDetected) U Benzodiazepines Scrn (NotDetected) Urine Cocaine Screen (NotDetected) U Marijuana (THC) Screen (NotDetected) 06/06/20 06/06/20 06/06/20 Range/Units 11:28 11:28 12:59 WBC (3.8-10.6) k/uL RBC (3.80-5.40) m/uL Hgb (11.4-16.0) gm/dL Hct (34.0-46.0) % MCV (80.0-100.0) fL MCH (25.0-35.0) pg MCHC (31.0-37.0) g/dL RDW (11.5-15.5) % Plt Count (150-450) k/uL Neutrophils % % Lymphocytes % % Monocytes % % Eosinophils % % Basophils % % Neutrophils # (1.3-7.7) k/uL Lymphocytes # (1.0-4.8) k/uL Monocytes # (0-1.0) k/uL Eosinophils # (0-0.7) k/uL Basophils # (0-0.2) k/uL PT (9.0-12.0) sec INR (<1.2) APTT (22.0-30.0) sec Sodium (137-145) mmol/L Potassium (3.5-5.1) mmol/L Chloride (98-107) mmol/L Carbon Dioxide (22-30) mmol/L Anion Gap mmol/L BUN (7-17) mg/dL Creatinine (0.52-1.04) mg/dL Est GFR (CKD-EPI)AfAm (>60 ml/min/1.73 sqM) Est GFR (CKD-EPI)NonAf (>60 ml/min/1.73 sqM) Glucose (74-99) mg/dL Plasma Lactic Acid Tin 1.3 (0.7-2.0) mmol/L Calcium (8.4-10.2) mg/dL Magnesium (1.6-2.3) mg/dL Total Bilirubin (0.2-1.3) mg/dL AST (14-36) U/L ALT (4-34) U/L Alkaline Phosphatase (38-126) U/L Troponin I <0.012 (0.000-0.034) ng/mL Total Protein (6.3-8.2) g/dL Albumin (3.5-5.0) g/dL Urine Color Yellow Urine Appearance Clear (Clear) Urine pH 6.0 (5.0-8.0) Ur Specific Marshall 1.019 (1.001-1.035) Urine Protein Negative (Negative) Urine Glucose (UA) Negative (Negative) Urine Ketones Negative (Negative) Urine Blood Negative (Negative) Urine Nitrite Negative (Negative) Urine Bilirubin Negative (Negative) Urine Urobilinogen 2.0 (<2.0) mg/dL Ur Leukocyte Esterase Negative (Negative) Urine Opiates Screen (NotDetected) Ur Oxycodone Screen (NotDetected) Urine Methadone Screen (NotDetected) Ur Propoxyphene Screen (NotDetected) Ur Barbiturates Screen (NotDetected) U Tricyclic Antidepress (NotDetected) Ur Phencyclidine Scrn (NotDetected) Ur Amphetamines Screen (NotDetected) U Methamphetamines Scrn (NotDetected) U Benzodiazepines Scrn (NotDetected) Urine Cocaine Screen (NotDetected) U Marijuana (THC) Screen (NotDetected) 06/06/20 Range/Units 12:59 WBC (3.8-10.6) k/uL RBC (3.80-5.40) m/uL Hgb (11.4-16.0) gm/dL Hct (34.0-46.0) % MCV (80.0-100.0) fL MCH (25.0-35.0) pg MCHC (31.0-37.0) g/dL RDW (11.5-15.5) % Plt Count (150-450) k/uL Neutrophils % % Lymphocytes % % Monocytes % % Eosinophils % % Basophils % % Neutrophils # (1.3-7.7) k/uL Lymphocytes # (1.0-4.8) k/uL Monocytes # (0-1.0) k/uL Eosinophils # (0-0.7) k/uL Basophils # (0-0.2) k/uL PT (9.0-12.0) sec INR (<1.2) APTT (22.0-30.0) sec Sodium (137-145) mmol/L Potassium (3.5-5.1) mmol/L Chloride (98-107) mmol/L Carbon Dioxide (22-30) mmol/L Anion Gap mmol/L BUN (7-17) mg/dL Creatinine (0.52-1.04) mg/dL Est GFR (CKD-EPI)AfAm (>60 ml/min/1.73 sqM) Est GFR (CKD-EPI)NonAf (>60 ml/min/1.73 sqM) Glucose (74-99) mg/dL Plasma Lactic Acid Tin (0.7-2.0) mmol/L Calcium (8.4-10.2) mg/dL Magnesium (1.6-2.3) mg/dL Total Bilirubin (0.2-1.3) mg/dL AST (14-36) U/L ALT (4-34) U/L Alkaline Phosphatase (38-126) U/L Troponin I (0.000-0.034) ng/mL Total Protein (6.3-8.2) g/dL Albumin (3.5-5.0) g/dL Urine Color Urine Appearance (Clear) Urine pH (5.0-8.0) Ur Specific Marshall (1.001-1.035) Urine Protein (Negative) Urine Glucose (UA) (Negative) Urine Ketones (Negative) Urine Blood (Negative) Urine Nitrite (Negative) Urine Bilirubin (Negative) Urine Urobilinogen (<2.0) mg/dL Ur Leukocyte Esterase (Negative) Urine Opiates Screen Not Detected (NotDetected) Ur Oxycodone Screen Not Detected (NotDetected) Urine Methadone Screen Not Detected (NotDetected) Ur Propoxyphene Screen Not Detected (NotDetected) Ur Barbiturates Screen Not Detected (NotDetected) U Tricyclic Antidepress Not Detected (NotDetected) Ur Phencyclidine Scrn Not Detected (NotDetected) Ur Amphetamines Screen Detected H (NotDetected) U Methamphetamines Scrn Not Detected (NotDetected) U Benzodiazepines Scrn Not Detected (NotDetected) Urine Cocaine Screen Not Detected (NotDetected) U Marijuana (THC) Screen Not Detected (NotDetected) Disposition Clinical Impression: Generalized weakness Disposition: HOME SELF-CARE Condition: Good Instructions (If sedation given, give patient instructions): Weakness (ED) Is patient prescribed a controlled substance at d/c from ED?: No Referrals: Chris Bocanegra MD [Primary Care Provider] - 1-2 days Time of Disposition: 13:47
[2020-06-06 11:48] LABS: Basophils % (A) 0 %; Eosinophils # (A) 0.2 k/uL (0-0.7); Eosinophils % (A) 3 %; HCT 39.1 % (34.0-46.0); HGB 12.5 gm/dL (11.4-16.0); Lymphocytes # (A) 2.1 k/uL (1.0-4.8); Lymphocytes % (A) 25 %; MCH 29.8 pg (25.0-35.0); MCHC 31.9 g/dL (31.0-37.0); MCV 93.4 fL (80.0-100.0); Mean Platelet Volume 8.6; Monocytes # (A) 0.4 k/uL (0-1.0); Monocytes % (A) 5 %; Neutrophils # (A) 5.6 k/uL (1.3-7.7); Neutrophils % (A) 66 %; Platelet Count 249 k/uL (150-450); RBC 4.19 m/uL (3.80-5.40); RDW 13.4 % (11.5-15.5); WBC 8.4 k/uL (3.8-10.6)
[2020-06-06 11:59] LABS: ALT 24 U/L (4-34); AST 25 U/L (14-36); African American GFR (CKD) >90 (>60 ml/min/1.73 sqM); Alkaline Phosphatase 73 U/L (38-126); Anion Gap 8 mmol/L; Blood Urea Nitrogen 15 mg/dL (7-17); Calcium 9.3 mg/dL (8.4-10.2); Carbon Dioxide 28 mmol/L (22-30); Chloride 103 mmol/L (98-107); Glucose 98 mg/dL (74-99); Non-African American GFR(CKD) >90 (>60 ml/min/1.73 sqM); Potassium 3.9 mmol/L (3.5-5.1); Sodium 139 mmol/L (137-145); Total Bilirubin 0.4 mg/dL (0.2-1.3); Total Protein 6.8 g/dL (6.3-8.2)
[2020-06-06 12:17] LABS: INR 0.9 (<1.2); Prothrombin Time 9.5 sec (9.0-12.0)
[2020-06-06 12:35] LABS: Partial Thromboplastin Time 21.8 sec (22.0-30.0)
[2020-06-06 13:24] LABS: Appearance,Urine Clear (Clear); Bilirubin,Urine Negative (Negative); Blood,Urine Negative (Negative); Color,Urine Yellow; Glucose,Urine (UA) Negative (Negative); Ketones,Urine Negative (Negative); Leukocyte Esterase,Urine Negative (Negative); Nitrite,Urine Negative (Negative); Protein,Urine Negative (Negative); Specific Gravity,Urine 1.019 (1.001-1.035)
[2020-06-06 13:42] LABS: Amphetamine Screen,Urine Detected (NotDetected); Barbiturate Screen,Urine Not Detected (NotDetected); Benzodiazepines Screen,Urine Not Detected (NotDetected); Cocaine Screen,Urine Not Detected (NotDetected); Methadone Screen, Urine Not Detected (NotDetected); Opiate Screen,Urine Not Detected (NotDetected); Oxycodone Screen, Urine Not Detected (NotDetected); Phencyclidine Screen,Urine Not Detected (NotDetected); Tricyclic Antidepressant,Urine Not Detected (NotDetected); Urn Cannabinoid Scrn Not Detected (NotDetected)
[2020-06-06 14:07] VITALS: BP 121/67; PULSE 73; RESP 17; TEMP 97.9
== END 2020-06-06 14:08 | disposition home or self-care (01) ==
LOC: EC 10:53
DX: R53.1 Weakness (principal); R10.30 Lower abdominal pain, unspecified; J44.9 Chronic obstructive pulmonary disease, unspecified; F41.9 Anxiety disorder, unspecified; F17.200 Nicotine dependence, unspecified, uncomplicated; Z79.899 Other long term (current) drug therapy; Z91.018 Allergy to other foods; Z91.048 Other nonmedicinal substance allergy status; Z86.73 Personal history of transient ischemic attack (TIA), and cerebral infarction without residual deficits; Z79.1 Long term (current) use of non-steroidal anti-inflammatories (NSAID)
CPT/HCPCS: 36415; 93005; 80053; 83605; 83735; 84484; 85025; 85610; 85730; 81003; 80306; 99285; 96374; 96361 ×2; J1885

== ENCOUNTER 2020-06-22 11:31 | Emergency (ER) | payer MEDICARE, OTHER ==
[2020-06-22 11:40] VITALS: TEMP 98.2
[2020-06-22] MEDS ORDERED: SODIUM CHLORIDE 0.9% 500 ML 500 ML IV STA (12:19)
[2020-06-22] MEDS ORDERED: MECLIZINE 12.5 MG TAB PO STA (12:19)
[2020-06-22 13:04] LABS: Basophils % (A) 1 %; Eosinophils # (A) 0.2 k/uL (0-0.7); Eosinophils % (A) 2 %; HCT 38.8 % (34.0-46.0); HGB 12.8 gm/dL (11.4-16.0); Lymphocytes # (A) 2.6 k/uL (1.0-4.8); Lymphocytes % (A) 30 %; MCH 30.5 pg (25.0-35.0); MCHC 33.1 g/dL (31.0-37.0); MCV 92.1 fL (80.0-100.0); Mean Platelet Volume 7.9; Monocytes # (A) 0.4 k/uL (0-1.0); Monocytes % (A) 4 %; Neutrophils # (A) 5.2 k/uL (1.3-7.7); Neutrophils % (A) 62 %; Platelet Count 272 k/uL (150-450); RBC 4.21 m/uL (3.80-5.40); RDW 13.7 % (11.5-15.5); WBC 8.5 k/uL (3.8-10.6)
--- NOTE | 2020-06-22 13:04 | CT ---
EXAMINATION TYPE: CT brain wo con DATE OF EXAM: 06/22/2020 COMPARISON: CT brain 02/29/2020 HISTORY: Dizziness, weakness CT DLP: 1051.4 mGycm. Automated Exposure Control for Dose Reduction was Utilized. TECHNIQUE: CT scan of the head is performed without contrast. FINDINGS: There is no acute intracranial hemorrhage, mass effect, or midline shift identified. Enc ephalomalacia involving the left temporal lobe is a stable finding, less conspicuous similar changes are stable in the posterior right temporal lobe. There is cortical atrophy. There is a partially empt y sella. The ventricles and sulci are within normal limits in size. The globes are intact and the vi sualized sinuses are remarkable for inflammatory change within the maxillary sinus on the right. IMPRESSION: No acute intracranial hemorrhage, mass effect, or midline shift is seen. Stable chronic infarcts.
--- NOTE | 2020-06-22 13:05 | XR ---
EXAMINATION TYPE: XR chest 2V DATE OF EXAM: 06/22/2020 COMPARISON: 06/03/2020 INDICATION: Dizziness TECHNIQUE: Frontal and lateral views of the chest are obtained. FINDINGS: The heart size is normal. The pulmonary vasculature is normal. The lungs are clear. Spondylosis is through the lower thoracic spine. IMPRESSION: 1. No acute pulmonary process.
[2020-06-22 13:16] LABS: INR 0.9 (<1.2); Prothrombin Time 9.5 sec (9.0-12.0)
[2020-06-22 13:17] LABS: ALT 24 U/L (4-34); AST 24 U/L (14-36); African American GFR (CKD) >90 (>60 ml/min/1.73 sqM); Albumin 3.8 g/dL (3.5-5.0); Alkaline Phosphatase 71 U/L (38-126); Anion Gap 5 mmol/L; Blood Urea Nitrogen 13 mg/dL (7-17); Calcium 9.1 mg/dL (8.4-10.2); Carbon Dioxide 25 mmol/L (22-30); Chloride 110 mmol/L (98-107); Glucose 90 mg/dL (74-99); Magnesium 2.3 mg/dL (1.6-2.3); Non-African American GFR(CKD) >90 (>60 ml/min/1.73 sqM); Potassium 4.9 mmol/L (3.5-5.1); Sodium 140 mmol/L (137-145); Total Bilirubin 0.3 mg/dL (0.2-1.3); Total Protein 6.7 g/dL (6.3-8.2)
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
[2020-06-22 13:56] VITALS: BP 156/77; PULSE 66; RESP 17
[2020-06-22 14:13] LABS: Appearance,Urine Clear (Clear); Bilirubin,Urine Negative (Negative); Blood,Urine Negative (Negative); Color,Urine Yellow; Glucose,Urine (UA) Negative (Negative); Ketones,Urine Negative (Negative); Leukocyte Esterase,Urine Negative (Negative); Nitrite,Urine Negative (Negative); Protein,Urine Negative (Negative); Specific Gravity,Urine 1.008 (1.001-1.035); Urobilinogen,Urine <2.0 mg/dL (<2.0)
[2020-06-22 14:38] LABS: Amphetamine Screen,Urine Detected (NotDetected); Barbiturate Screen,Urine Not Detected (NotDetected); Benzodiazepines Screen,Urine Not Detected (NotDetected); Cocaine Screen,Urine Not Detected (NotDetected); Methadone Screen, Urine Not Detected (NotDetected); Opiate Screen,Urine Not Detected (NotDetected); Oxycodone Screen, Urine Not Detected (NotDetected); Phencyclidine Screen,Urine Not Detected (NotDetected); Tricyclic Antidepressant,Urine Not Detected (NotDetected); Urn Cannabinoid Scrn Not Detected (NotDetected)
== END 2020-06-22 14:11 | disposition home or self-care (01) ==
LOC: EC 11:31
DX: R42 Dizziness and giddiness (principal); R53.1 Weakness; R53.83 Other fatigue; F41.9 Anxiety disorder, unspecified; F17.200 Nicotine dependence, unspecified, uncomplicated; J44.9 Chronic obstructive pulmonary disease, unspecified; I20.9 Angina pectoris, unspecified; Z79.51 Long term (current) use of inhaled steroids; Z79.1 Long term (current) use of non-steroidal anti-inflammatories (NSAID); Z79.899 Other long term (current) drug therapy; Z91.018 Allergy to other foods; Z91.048 Other nonmedicinal substance allergy status; Z87.820 Personal history of traumatic brain injury
CPT/HCPCS: 36415; 70450; 71046; 80053; 80306; 81003; 83735; 84484; 85025; 85610; 93005; 96360; 99284

== ENCOUNTER 2020-06-23 15:34 | Emergency (ER) | payer MEDICARE, OTHER ==
[2020-06-23 15:40] VITALS: RESP 18; TEMP 98
[2020-06-23] MEDS ORDERED: SODIUM CHLORIDE 0.9% 1,000 ML IV STA (15:52)
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
[2020-06-23 16:17] LABS: Basophils % (A) 1 %; Eosinophils # (A) 0.2 k/uL (0-0.7); Eosinophils % (A) 2 %; HCT 37.4 % (34.0-46.0); HGB 12.3 gm/dL (11.4-16.0); Lymphocytes # (A) 2.8 k/uL (1.0-4.8); Lymphocytes % (A) 33 %; MCH 30.2 pg (25.0-35.0); MCHC 32.9 g/dL (31.0-37.0); MCV 91.8 fL (80.0-100.0); Mean Platelet Volume 7.5; Monocytes # (A) 0.3 k/uL (0-1.0); Monocytes % (A) 4 %; Neutrophils # (A) 4.9 k/uL (1.3-7.7); Neutrophils % (A) 60 %; Platelet Count 253 k/uL (150-450); RBC 4.07 m/uL (3.80-5.40); RDW 13.5 % (11.5-15.5); WBC 8.3 k/uL (3.8-10.6)
[2020-06-23 16:31] LABS: INR 0.9 (<1.2); Prothrombin Time 9.5 sec (9.0-12.0)
[2020-06-23 17:31] LABS: ALT 25 U/L (4-34); AST 26 U/L (14-36); African American GFR (CKD) >90 (>60 ml/min/1.73 sqM); Albumin 3.9 g/dL (3.5-5.0); Alkaline Phosphatase 73 U/L (38-126); Anion Gap 6 mmol/L; Blood Urea Nitrogen 13 mg/dL (7-17); Carbon Dioxide 26 mmol/L (22-30); Chloride 108 mmol/L (98-107); Creatine Kinase 84 U/L (30-135); Glucose 98 mg/dL (74-99); Non-African American GFR(CKD) >90 (>60 ml/min/1.73 sqM); Phosphorus 4.2 mg/dL (2.5-4.5); Potassium 4.2 mmol/L (3.5-5.1); Sodium 140 mmol/L (137-145); Total Bilirubin 0.4 mg/dL (0.2-1.3); Total Protein 6.8 g/dL (6.3-8.2)
[2020-06-23 17:36] VITALS: BP 117/68; PULSE 65
[2020-06-23] MEDS ORDERED: MECLIZINE 12.5 MG TAB PO STA (17:41)
[2020-06-23 17:43] LABS: Appearance,Urine Clear (Clear); Bilirubin,Urine Negative (Negative); Blood,Urine Negative (Negative); Color,Urine Yellow; Glucose,Urine (UA) Negative (Negative); Ketones,Urine Trace (Negative); Leukocyte Esterase,Urine Negative (Negative); Nitrite,Urine Negative (Negative); PH, Urine 5.5 (5.0-8.0); Protein,Urine Trace (Negative); Specific Gravity,Urine 1.026 (1.001-1.035)
== END 2020-06-23 18:05 | disposition home or self-care (01) ==
LOC: EC 15:34
DX: R42 Dizziness and giddiness (principal); R53.1 Weakness; R06.02 Shortness of breath; F41.9 Anxiety disorder, unspecified; F17.200 Nicotine dependence, unspecified, uncomplicated; J44.9 Chronic obstructive pulmonary disease, unspecified; Z91.018 Allergy to other foods; Z91.81 History of falling; Z91.048 Other nonmedicinal substance allergy status; Z86.73 Personal history of transient ischemic attack (TIA), and cerebral infarction without residual deficits
CPT/HCPCS: 36415; 80053; 81003; 82550; 83735; 84100; 84443; 84484; 85025; 85610; 85730; 93005; 96360; 96361; 99284

== ENCOUNTER 2020-07-01 09:36 | Emergency (ER) | payer MEDICARE, OTHER ==
[2020-07-01 09:44] VITALS: RESP 18; TEMP 98.7
[2020-07-01] MEDS ORDERED: IPRATROPIUM-ALBUTEROL 3 ML NEB INHALATION STA (09:47)
--- NOTE | 2020-07-01 09:47 | ED ---
General Adult HPI - General Chief complaint: Shortness of Breath Stated complaint: SOB Time Seen by Provider: 07/01/20 09:36 Source: patient, EMS, RN notes reviewed, old records reviewed Mode of arrival: EMS Limitations: no limitations - History of Present Illness Initial comments: This is a 49-year-old female who presents emergency Department stating she's had a stroke in the past. Patient comes in today because she's having difficulty breathing when she woke up this morning. Patient states being treated for sinus infection since Thursday. Patient states today she felt little short of breath. EMS stated that she was sent in the high 90s and was not tachycardic on the way in. Patient did not appear to be in any distress per EMS. Patient denied any fever chills or cough per patient denies any chest pain or palpitations. Patient had abdominal pain patient denies nausea vomiting diarrhea. Patient stated she also was slightly lightheaded when she started having difficulty breathing. Patient denies any leg swelling or calf tenderness. - Related Data Home Medications Medication Instructions Recorded Confirmed Dextroamphetamine/Amphetamine 20 mg PO DAILY 10/17/17 06/23/20 [Adderall] levETIRAcetam [Keppra] 500 mg PO DAILY 10/17/17 06/23/20 ARIPiprazole [Abilify] 5 mg PO HS 02/29/20 06/23/20 Potassium Chloride 10 meq PO DAILY 02/29/20 06/23/20 Albuterol Inhaler [Ventolin Hfa 2 puff INHALATION RT-Q4H PRN 03/31/20 06/23/20 Inhaler] Diclofenac Sodium [Voltaren] 75 mg PO BID 05/31/20 06/23/20 Allergies Allergy/AdvReac Type Severity Reaction Status Date / Time cat dander Allergy Rash/Hives Verified 06/23/20 17:08 tomato AdvReac Nausea Verified 06/23/20 17:08 Review of Systems ROS Statement: Those systems with pertinent positive or pertinent negative responses have been documented in the HPI. ROS Other: All systems not noted in ROS Statement are negative. 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 History of Any Multi-Drug Resistant Organisms: None Reported Past Surgical History: Section, Tonsillectomy, Tubal Ligation Additional Past Surgical History / Comment(s): Past trach/peg tube, pt thinks some kind of brain/skull surgery while comatose in 2010 at [facility]. Past Anesthesia/Blood Transfusion Reactions: No Reported Reaction Past Psychological History: Anxiety Smoking Status: Current every day smoker Past Alcohol Use History: None Reported Past Drug Use History: None Reported - Past Family History Mother Family Medical History: Cancer Additional Family Medical History / Comment(s): Mother of cancer, pt does not know what type. Father Family Medical History: Cancer Additional Family Medical History / Comment(s): Father is alive and has had 3 different types of cancer but survived them all. General Exam - General Exam Comments Initial Comments: GENERAL: Patient is well-developed and well-nourished. Patient is nontoxic and well- hydrated and is in mild distress. ENT: Neck is soft and supple. No significant lymphadenopathy is noted. Oropharynx is clear. Moist mucous membranes. Neck has full range of motion without eliciting any pain. EYES: The sclera were anicteric and conjunctiva were pink and moist. Extraocular movements were intact and pupils were equal round and reactive to light. Eyelids were unremarkable. PULMONARY: Unlabored respirations. Good breath sounds bilaterally. No audible rales rhonchi or wheezing was noted. CARDIOVASCULAR: There is a regular rate and rhythm without any murmurs gallops or rubs. ABDOMEN: Soft and nontender with normal bowel sounds. SKIN: Skin is clear with no lesions or rashes and otherwise unremarkable. NEUROLOGIC: Patient is alert and oriented x3. Cranial nerves II through XII are grossly intact. Motor and sensory are also intact. Normal speech, volume and content. Symmetrical smile. MUSCULOSKELETAL: Normal extremities with adequate strength and full range of motion. LYMPHATICS: No significant lymphadenopathy is noted PSYCHIATRIC: Normal psychiatric evaluation. Limitations: no limitations Course Vital Signs 07/01/20 07/01/20 07/01/20 09:40 09:50 10:00 Temperature 98.7 F Pulse Rate 85 Respiratory 18 Rate Blood Pressure 104/63 104/63 104/63 O2 Sat by Pulse 100 99 100 Oximetry 07/01/20 10:18 Temperature Pulse Rate 80 Respiratory Rate Blood Pressure O2 Sat by Pulse Oximetry Medical Decision Making - Medical Decision Making EKG shows normal sinus rhythm at 70 bpm OR interval 220 QRS is 82 QT interval 382 QTC is 412. Patient's EKG shows no ST segment elevation or depression. Chest x-ray shows no acute abnormality Patient had a breathing treatment and states she is no longer short of breath - Lab Data Result diagrams: 07/01/20 09:51 07/01/20 09:51 Lab Results 07/01/20 07/01/20 07/01/20 Range/Units 09:51 09:51 09:51 WBC 7.5 (3.8-10.6) k/uL RBC 4.14 (3.80-5.40) m/uL Hgb 12.3 (11.4-16.0) gm/dL Hct 38.3 (34.0-46.0) % MCV 92.4 (80.0-100.0) fL MCH 29.8 (25.0-35.0) pg MCHC 32.2 (31.0-37.0) g/dL RDW 13.8 (11.5-15.5) % Plt Count 234 (150-450) k/uL Neutrophils % 67 % Lymphocytes % 25 % Monocytes % 3 % Eosinophils % 3 % Basophils % 1 % Neutrophils # 5.0 (1.3-7.7) k/uL Lymphocytes # 1.9 (1.0-4.8) k/uL Monocytes # 0.3 (0-1.0) k/uL Eosinophils # 0.2 (0-0.7) k/uL Basophils # 0.1 (0-0.2) k/uL Sodium 141 (137-145) mmol/L Potassium 4.1 (3.5-5.1) mmol/L Chloride 110 H (98-107) mmol/L Carbon Dioxide 26 (22-30) mmol/L Anion Gap 5 mmol/L BUN 12 (7-17) mg/dL Creatinine 0.71 (0.52-1.04) mg/dL Est GFR (CKD-EPI)AfAm >90 (>60 ml/min/1.73 sqM) Est GFR (CKD-EPI)NonAf >90 (>60 ml/min/1.73 sqM) Glucose 104 H (74-99) mg/dL Calcium 8.9 (8.4-10.2) mg/dL Magnesium 2.0 (1.6-2.3) mg/dL Total Bilirubin 0.4 (0.2-1.3) mg/dL AST 22 (14-36) U/L ALT 25 (4-34) U/L Alkaline Phosphatase 61 (38-126) U/L Troponin I <0.012 (0.000-0.034) ng/mL Total Protein 6.5 (6.3-8.2) g/dL Albumin 3.7 (3.5-5.0) g/dL Disposition Clinical Impression: Dyspnea Disposition: HOME SELF-CARE Instructions (If sedation given, give patient instructions): Dyspnea (ED) Is patient prescribed a controlled substance at d/c from ED?: No Referrals: Chris Bocanegra MD [Primary Care Provider] - 1-2 days Time of Disposition: 10:51
[2020-07-01 10:01] LABS: Basophils # (A) 0.1 k/uL (0-0.2); Basophils % (A) 1 %; Eosinophils # (A) 0.2 k/uL (0-0.7); Eosinophils % (A) 3 %; HCT 38.3 % (34.0-46.0); HGB 12.3 gm/dL (11.4-16.0); Lymphocytes # (A) 1.9 k/uL (1.0-4.8); Lymphocytes % (A) 25 %; MCH 29.8 pg (25.0-35.0); MCHC 32.2 g/dL (31.0-37.0); MCV 92.4 fL (80.0-100.0); Mean Platelet Volume 7.7; Monocytes # (A) 0.3 k/uL (0-1.0); Monocytes % (A) 3 %; Neutrophils % (A) 67 %; Platelet Count 234 k/uL (150-450); RBC 4.14 m/uL (3.80-5.40); RDW 13.8 % (11.5-15.5); WBC 7.5 k/uL (3.8-10.6)
[2020-07-01 10:11] LABS: ALT 25 U/L (4-34); AST 22 U/L (14-36); African American GFR (CKD) >90 (>60 ml/min/1.73 sqM); Albumin 3.7 g/dL (3.5-5.0); Alkaline Phosphatase 61 U/L (38-126); Anion Gap 5 mmol/L; Blood Urea Nitrogen 12 mg/dL (7-17); Calcium 8.9 mg/dL (8.4-10.2); Carbon Dioxide 26 mmol/L (22-30); Chloride 110 mmol/L (98-107); Glucose 104 mg/dL (74-99); Non-African American GFR(CKD) >90 (>60 ml/min/1.73 sqM); Potassium 4.1 mmol/L (3.5-5.1); Sodium 141 mmol/L (137-145); Total Bilirubin 0.4 mg/dL (0.2-1.3); Total Protein 6.5 g/dL (6.3-8.2)
--- NOTE | 2020-07-01 10:37 | XR ---
EXAMINATION TYPE: XR chest 2V DATE OF EXAM: 07/01/2020 COMPARISON: 06/22/2020 INDICATION: Difficulty breathing TECHNIQUE: Frontal and lateral views of the chest are obtained. FINDINGS: The heart size is normal. The pulmonary vasculature is normal. The lungs are clear. IMPRESSION: 1. No acute pulmonary process.
[2020-07-01 10:58] VITALS: BP 100/70; PULSE 75
== END 2020-07-01 10:53 | disposition home or self-care (01) ==
LOC: EC 09:36
DX: R06.02 Shortness of breath (principal); R10.9 Unspecified abdominal pain; R42 Dizziness and giddiness; J44.9 Chronic obstructive pulmonary disease, unspecified; F41.9 Anxiety disorder, unspecified; I69.351 Hemiplegia and hemiparesis following cerebral infarction affecting right dominant side; H54.7 Unspecified visual loss; R41.3 Other amnesia; I25.2 Old myocardial infarction; F17.200 Nicotine dependence, unspecified, uncomplicated; Z79.1 Long term (current) use of non-steroidal anti-inflammatories (NSAID); Z79.51 Long term (current) use of inhaled steroids; Z79.899 Other long term (current) drug therapy; Z91.048 Other nonmedicinal substance allergy status; Z91.018 Allergy to other foods; Z87.820 Personal history of traumatic brain injury
CPT/HCPCS: 36415; 71046; 80053; 83735; 84484; 85025; 93005; 94640; 99285

== ENCOUNTER 2020-07-16 11:31 | Observation (INO) | payer MEDICARE, OTHER ==
[2020-07-16] MEDS ORDERED: HYDROmorphone 0.5 MG/0.5 ML SYRINGE IVP PRN (17:22)
[2020-07-16] MEDS ORDERED: IPRATROPIUM-ALBUTEROL 3 ML NEB INHALATION PRN (17:23)
[2020-07-16 17:45] LABS: Basophils # (A) 0.1 k/uL (0-0.2); Basophils % (A) 1 %; Eosinophils # (A) 0.3 k/uL (0-0.7); Eosinophils % (A) 3 %; HCT 38.3 % (34.0-46.0); HGB 12.8 gm/dL (11.4-16.0); Lymphocytes # (A) 3.8 k/uL (1.0-4.8); Lymphocytes % (A) 39 %; MCH 31.4 pg (25.0-35.0); MCHC 33.5 g/dL (31.0-37.0); MCV 93.9 fL (80.0-100.0); Mean Platelet Volume 7.4; Monocytes # (A) 0.3 k/uL (0-1.0); Monocytes % (A) 3 %; Neutrophils # (A) 5.3 k/uL (1.3-7.7); Neutrophils % (A) 54 %; Platelet Count 251 k/uL (150-450); RBC 4.08 m/uL (3.80-5.40); RDW 13.6 % (11.5-15.5); WBC 9.8 k/uL (3.8-10.6)
[2020-07-16] MEDS: PANTOPRAZOLE 40 MG/10 ML VIAL IVP SCH (17:45)
[2020-07-16] MEDS: NICOTINE 21MG/24HR PATCH TRANSDERM SCH (17:46)
[2020-07-16] MEDS: SODIUM CHLORIDE 0.9% 1,000 ML IV SCH (17:46)
[2020-07-16 18:18] LABS: ALT 30 U/L (4-34); AST 26 U/L (14-36); African American GFR (CKD) >90 (>60 ml/min/1.73 sqM); Albumin 3.9 g/dL (3.5-5.0); Alkaline Phosphatase 68 U/L (38-126); Anion Gap 5 mmol/L; Blood Urea Nitrogen 15 mg/dL (7-17); Calcium 9.5 mg/dL (8.4-10.2); Carbon Dioxide 29 mmol/L (22-30); Chloride 104 mmol/L (98-107); Glucose 97 mg/dL (74-99); Non-African American GFR(CKD) >90 (>60 ml/min/1.73 sqM); Potassium 3.8 mmol/L (3.5-5.1); Sodium 138 mmol/L (137-145); Total Bilirubin 0.3 mg/dL (0.2-1.3); Total Protein 6.6 g/dL (6.3-8.2)
[2020-07-16] MEDS: methylPREDNISolone SOD SUCCI 40 MG/ML 1 ML VIAL IV SCH (18:37)
[2020-07-16] MEDS: IPRATROPIUM-ALBUTEROL 3 ML NEB INHALATION SCH (18:49)
--- NOTE | 2020-07-16 19:07 | CT ---
EXAMINATION TYPE: CT lumbar spine wo con DATE OF EXAM: 07/16/2020 6:35 PM COMPARISON: None available. HISTORY: Back pain Lumbar neuritis CT DLP: 950 mGycm Automated exposure control for dose reduction was used. Unenhanced CT of the lumbar spine was performed. Bone and soft tissue window settings are submitted as well as coronal and sagittal reconstructions. There is no acute fracture or subluxation of the lumbar spine. Alignment is anatomic. The vertebral b racheal heights are grossly maintained. There is mild disc height narrowing at L4-L5 and L5-S1. There is mild facet arthropathy in the lower lumbar spine. The paraspinal soft tissues are unremarkable. The s acroiliac joints are patent. Moderate lower thoracic spondylosis is noted. IMPRESSION: No acute abnormality. Mild lumbar spondylosis. Moderate lower thoracic spondylosis.
[2020-07-16] MEDS: ETODOLAC 400 MG TAB PO SCH (20:13)
[2020-07-16] MEDS ORDERED: ARIPiprazole 5 MG TAB PO SCH (21:00)
[2020-07-17] MEDS: methylPREDNISolone SOD SUCCI 40 MG/ML 1 ML VIAL IV SCH ×3 (01:11→15:03)
[2020-07-17] MEDS: NICOTINE 21MG/24HR PATCH TRANSDERM SCH (07:19)
[2020-07-17] MEDS: IPRATROPIUM-ALBUTEROL 3 ML NEB INHALATION SCH ×3 (07:56→15:02)
[2020-07-17] MEDS ORDERED: IPRATROPIUM 0.5 MG/2.5 ML NEBU INHALATION SCH (08:00)
[2020-07-17] MEDS ORDERED: FORMOTEROL FUMARATE 20 MCG/2 ML NEBU INHALATION SCH (08:00)
[2020-07-17] MEDS: PANTOPRAZOLE 40 MG/10 ML VIAL IVP SCH (08:18)
[2020-07-17] MEDS ORDERED: NON FORMULARY DRUG (Vitamin B Complex [Vitamin B Complex] 1 EACH Capsule) PO SCH (09:00)
[2020-07-17] MEDS ORDERED: levETIRAcetam 500 MG TAB PO SCH (09:00)
[2020-07-17] MEDS ORDERED: NON FORMULARY DRUG (Dextroamphetamine/Amphetamine [Adderall] 20 MG Tablet) PO SCH (09:00)
[2020-07-17] MEDS: ETODOLAC 400 MG TAB PO SCH (09:26)
[2020-07-17] MEDS ORDERED: IV FLUID CONTINUATION 1,000 ML IV ONE ×2 (10:53)
[2020-07-17] MEDS ORDERED: fentaNYL (PF) 50 MCG/ML 2 ML AMP ONE (10:55)
[2020-07-17] MEDS ORDERED: IOPAMIDOL M200 10 ML VIAL ONE (10:55)
[2020-07-17] MEDS ORDERED: MIDAZOLAM 2 MG/2 ML VIAL ONE (10:55)
[2020-07-17] MEDS ORDERED: methylPREDNISolone ACETATE 40 MG/ML 1 ML VIAL ONE (10:55)
[2020-07-17] MEDS ORDERED: ROPIVACAINE 5MG/ML 20ML VIAL ONE (10:55)
--- NOTE | 2020-07-17 11:00 | P.PAINCN ---
History of Present Illness - Reason for Consult Consult date: 07/17/20 - History of Present Illness This is a 49 years old female was admitted to [facility] secondary to intractable low back pain with radiation to the left lower extremity, associated with numbness and tingling sensation, she reported that the symptoms started a few weeks ago but increased intensity over the last few days, she is not able to ambulate secondary to the pain,she denies any fever or night sweats. 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 History of Any Multi-Drug Resistant Organisms: None Reported Past Surgical History: Section, Tonsillectomy, Tubal Ligation Additional Past Surgical History / Comment(s): Past trach/peg tube, pt thinks some kind of brain/skull surgery while comatose in 2010 at [facility]. Past Anesthesia/Blood Transfusion Reactions: No Reported Reaction Past Psychological History: Anxiety Additional Psychological History / Comment(s): mood disorder. Pt resides alone in her apartment. She owns a cane but does not need to use it. She cannot drive, a friend [facility] to [facility]. Smoking Status: Current every day smoker Past Alcohol Use History: None Reported Additional Past Alcohol Use History / Comment(s): Pt started smoking in 1989 and cut down to 2 cigarettes a day about 4-5 month ago. Past Drug Use History: None Reported - Past Family History Mother Family Medical History: Cancer Additional Family Medical History / Comment(s): Mother of cancer, pt does not know what type. Father Family Medical History: Cancer Additional Family Medical History / Comment(s): Father is alive and has had 3 different types of cancer but survived them all. Medications and Allergies Home Medications Medication Instructions Recorded Confirmed Type Dextroamphetamine/Amphetamine 20 mg PO DAILY 10/17/17 07/16/20 History [Adderall] levETIRAcetam [Keppra] 500 mg PO DAILY 10/17/17 07/16/20 History ARIPiprazole [Abilify] 5 mg PO HS 02/29/20 07/16/20 History Albuterol Inhaler [Ventolin Hfa 2 puff INHALATION RT-Q4H PRN 03/31/20 07/16/20 History Inhaler] Diclofenac Sodium [Voltaren] 75 mg PO BID 05/31/20 07/16/20 History Aspirin EC [Ecotrin Low Dose] 81 mg PO DAILY 07/16/20 07/16/20 History Potassium Chloride 10 meq PO DAILY 07/16/20 07/16/20 History Umeclidinium Brm/Vilanterol Tr 1 puff INHALATION RT-DAILY 07/16/20 07/16/20 History [Anoro Ellipta 62.5-25 Mcg INH] Vitamin B Complex 1 cap PO DAILY 07/16/20 07/16/20 History hydroCHLOROthiazide [Hydrodiuril] 50 mg PO DAILY 07/16/20 07/16/20 History Allergies Allergy/AdvReac Type Severity Reaction Status Date / Time cat dander Allergy Rash/Hives Verified 07/16/20 15:09 tomato Allergy Rash/Hives Verified 07/16/20 15:09 Physical Exam Vitals: Vital Signs Temp Pulse Pulse Pulse Resp BP Pulse Ox 07/17/20 10:49 97.4 F L 76 20 107/67 100 07/17/20 08:08 84 07/17/20 07:58 82 07/17/20 07:20 97.8 F 66 14 104/68 98 07/17/20 02:24 98.4 F 61 16 96/58 95 07/17/20 02:21 78 14 07/16/20 19:30 78 14 07/16/20 19:25 98.2 F 78 14 96/66 96 07/16/20 18:49 80 16 07/16/20 16:03 98.7 F 78 18 97/66 98 07/16/20 13:29 97.3 F L 77 18 124/65 98 Intake and Output 07/16/20 07/17/20 07/17/20 22:59 06:59 14:59 Intake Total 240 Balance 240 Intake: Oral 240 Other: # Voids 1 1 Physical Examinations : -Constitutiona : Cooperative , not in acute distress . -HEENT : nech : supple , no Lymphadenopathy , normal thyroid size . : eyes : no ptosis , no icterus, no photophobia . - neurologic : Cranial nerve II to XII intact , no focal neurological deffecit . -psychatric : alert , oriented X 3 , appropriate affect , intact judgment and insight . -Lymphatic : no Lymphadenopathy . - musculoskeltal : Lumber spine moter stegnth lower extremities ,thigh and legs 3/5 Right side , 5/5 Left side deep tendon reflexes : normal Knee Jerk , normal ankle Jerk decreased sensation over the right Thigh ,(anterior and medial aspect ) Decreased sensation over the left lower extremity lumber facet Loading Test =positive Right , positive Left Range of motion of the lumbar spine Flexion 30 degrees, extension 10 degrees strait leg raising test = positive at 30 degree on the left side Fabere test= positive Right , and positive LT . Sever tenderness over the Sacroiliac joint on Left sides Gaenslen test=negative right ,and positive left . Seated flexion test= negative right ,and positive Left . Results CBC & Chem 7: 07/16/20 17:30 07/16/20 17:30 Comments: computed tomography scan of the lumbar spine= lumbar spondylosis Assessment and Plan Plan: assessment and plan=1-lumbar radiculopathy. 2-lumbar spondylosis and lumbar facet arthropathy 3-left sacroiliitis. she could benefit from lumbar epidural steroid injection under fluoroscopy guidance, and left sacroiliac Injection Time with Patient: Less than 30 PQRS Measure Charge Sheet PQRS Narrative: Smoking Status Current every day smoker Do You Want the Pneumonia No Vaccine AT THIS TIME? Blood Pressure [Right Arm] 107/67 Pain Intensity [Lower Back] 8 Pain Intensity 0 Pain Scale Used [Lower Back] Numeric (1 - 10) Pain Scale Used Numeric (1 - 10) Scale Used Numeric (1 - 10) Home Medications: Ambulatory Orders Dextroamphetamine/Amphetamine [Adderall] 20 mg PO DAILY 10/17/17 levETIRAcetam [Keppra] 500 mg PO DAILY 10/17/17 ARIPiprazole [Abilify] 5 mg PO HS 02/29/20 Albuterol Inhaler [Ventolin Hfa Inhaler] 2 puff INHALATION RT-Q4H PRN 03/31/20 Diclofenac Sodium [Voltaren] 75 mg PO BID 05/31/20 Aspirin EC [Ecotrin Low Dose] 81 mg PO DAILY 07/16/20 Potassium Chloride 10 meq PO DAILY 07/16/20 Umeclidinium Brm/Vilanterol Tr [Anoro Ellipta 62.5-25 Mcg INH] 1 puff INHALATION RT-DAILY 07/16/20 Vitamin B Complex 1 cap PO DAILY 07/16/20 hydroCHLOROthiazide [Hydrodiuril] 50 mg PO DAILY 07/16/20
--- NOTE | 2020-07-17 11:14 | P.PCN ---
Date of Procedure: 07/17/20 Procedure(s) Performed: PREOPERATIVE DIAGNOSIS: 1- Lumbar radiculopathy 2-Lumbar spondylosis with Facet arthropathy without myelopathy. 3-left sacroiliitis POSTOPERATIVE DIAGNOSIS: 1-Lumber radiculopathy 2-Lumbar spondylosis with Facet arthropathy without myelopathy. 3-left sacroiliitis PROCEDURE 1. Lumbar epidural steroid injection under fluoroscopic guidance at the L5-S1 level. (Fluoroscopy imaging was available in radiology department) 2. Lumbar epidurogram. 3-left sacroiliac joint steroid injection under fluoroscopy guidance ANESTHESIA: Local with 1% lidocaine 3 ml and , moderate sedation with intravenous Versed 1 mg ,and fentanyle 50 Mcg EBL: Minimal PROCEDURE INDICATION: The patient with low back pain and radiculitis symptoms unresponsive to conservative treatment. Fluoroscopy was used to optimize visualization of the needle placement and to maximize safety. PROCEDURE DESCRIPTION / TECHNIQUE: The patient was seen and identified in the preoperative area. Risks, benefits, complications including but not limited to infections ,bleeding ,allergic reaction to the medications ,nerve damage and not complete pain releife , and alternatives were discussed with the patient. The patient agreed to proceed with the procedure and signed the consent. IV was started, and vital signs were stable. Patient was taken to the OR and time out was completed. The patient was placed in the prone position on procedure table and a pillow was placed under the abdomen to reduce lumbar lordosis. The lumbosacral area was prepped and draped in the usual sterile fashion.ere closely monitored during the procedure. Conscious sedation was used during the procedure to decrease patients anxiety. Vital signs was monitered during the entire procedure. Using anterior-posterior fluoroscopy, the L5-S1 interlaminar space was identified and the skin over this site was marked and then infiltrated with 1% lidocaine subcutaneously. Subsequently, a 20-gauge Tuohy epidural needle was inserted and advanced toward the epidural space using the ``Loss of resistance technique and guided by AP and lateral fluoroscopy. The correct needle position in the epidural space was verified with the injection of 2 mL of the water soluble contrast dye Isovue 200 contrast and observing an excellent epidurogram with the epidural spread of the dye, after negative aspiration for blood and CSF and in the absence of paresthesias. Again after negative aspiration, a 6 ml mixture containing 40 mg of Depo-medrol , and 2 ml of preservative free Normal Saline, and 2 ml of preservative free lidocaine 1% solution was injected and a washout of epidurogram was seen. Needle was withdrawn intact, skin was cleansed, and bandages were applied. then after that the left sacroiliac joint injection done under sterile technique after local infiltration of the skin and subcu interstitial at the location of the left sacroiliac joint with lidocaine 1% 2 ml , then 22-gauge Quincke-type needle advanced slowly under fluoroscopy and placed in the lower portion of the left sacroiliac joint, negative placement confirmed under fluoroscopy then after negative aspiration,Ropivacaine 0.5% 3 mL mixed with 20 mg of Depo-Medrol and injected after negative aspiration patient tolerated the procedure well without any complications COMPLICATIONS: None DISPOSITION / PLANS: The patient was placed in a supine position and transferred to the recovery area in a stable condition for observation. There was no evidence of lower extremity motor or sensory deficit after the procedure. Patient was discharged from the recovery room after meeting discharge criteria. Home discharge instructions were given to the patient by the staff. The patient was reexamined prior to discharge. The patient will schedule a follow up in the clinic in 2-4 weeks.
[2020-07-17 11:25] VITALS: RESP 14
[2020-07-17] MEDS: SODIUM CHLORIDE 0.9% 1,000 ML IV SCH (11:26)
--- NOTE | 2020-07-17 12:01 | FL ---
EXAMINATION TYPE: FL guided pain mgmt statistic DATE OF EXAM: 07/17/2020 FLUOROSCOPY Fluoroscopy time of 5 seconds was used during left SI joint injection and lumbar epidural steroid inj ection. 2 image/s document/s the procedure.
--- NOTE | 2020-07-17 12:45 | HP ---
HISTORY AND PHYSICAL She is a 49-year-old white female who came in for severe pain in her right arm, right leg, irretractable pain, unable to ambulate. She wants an epidural shot. She was admitted overnight for severe pain, inability to ambulate, and frequent falls at home. History of a CVA 3 years ago, intracranial bleed. She has history is CVA, TIA, COPD, angina, chest pain, memory impairment, depression, prior brain injury 2010, comatose for 3 months. SURGERY: , tonsillectomy, tubal ligation. SMOKING: Current everyday smoker. No alcohol. No illicit drugs. FAMILY HISTORY: Mother with cancer. Father with cancer. MEDICATIONS: Advil 20 mg daily, Keppra 500 mg daily, Abilify 5 at night, albuterol 2 puffs q.4 p.r.n., Voltaren 75 mg b.i.d., aspirin 81 mg daily, potassium chloride 10 mEq daily, Anura 1 puff daily, hydrochlorothiazide 50 mg daily. ALLERGIES: CAT DANDER, TOMATOES. Temperature is 97 to 98, pulse is 80s, respiratory is 16-20, blood pressure is 90s to low 100s/60s to 70s. PSYCH: She appears crying, anxious, says she cannot live anymore. "If I have to live with this pain, I might as well ." CARDIOVASCULAR: S1, S2. LUNGS: Clear ENDOCRINE: BMI is over 40. MUSCULOSKELETAL: Shows leg raise test on the right leg. Left leg is negative straight leg raise test. She is tender to palpation, paracervical, lumbar spinal muscles. ASSESSMENT: Acute lumbar disc herniation, not improving with outpatient treatment. Irretractable pain, lumbar spondylosis, sacroiliitis. CT-guided epidural steroid injection prior to being discharged. Psych to see her for severe anxiety, depression, and mood swings. Nicotine cessation discussed with her. MMODL / IJN: [id number] /
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
[2020-07-17 14:35] VITALS: BP 98/54; PULSE 76; TEMP 98.4
[2020-07-17] MEDS ORDERED: DULoxetine HCL 20 MG CAPSULE.DR PO SCH (21:00)
[2020-07-18] MEDS ORDERED: PANTOPRAZOLE 40 MG TABLET PO SCH (09:00)
== END 2020-07-17 17:49 | disposition home or self-care (01) ==
LOC: 1SOBS 13:08
PROVIDERS: ADMIT Family Medicine; ATTEND Family Medicine
DX: M51.16 Intervertebral disc disorders with radiculopathy, lumbar region (principal); M46.1 Sacroiliitis, not elsewhere classified; M79.601 Pain in right arm; F17.200 Nicotine dependence, unspecified, uncomplicated; F32.9 Major depressive disorder, single episode, unspecified; F41.9 Anxiety disorder, unspecified; J44.9 Chronic obstructive pulmonary disease, unspecified; M47.26 Other spondylosis with radiculopathy, lumbar region; Z80.9 Family history of malignant neoplasm, unspecified; Z86.73 Personal history of transient ischemic attack (TIA), and cerebral infarction without residual deficits; M79.604 Pain in right leg
CPT/HCPCS: 96374; 96375; 96376; 94640 ×3; 80053; 84443; 85025; 72131; 62323; G0260; G0378 ×2; G0379; J2250; J1030; J2920 ×2; J3010; C9113 ×2; Q9966; J2795; 27096

== ENCOUNTER 2020-08-30 11:17 | Observation (INO) | payer MEDICARE, OTHER ==
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
[2020-08-30] MEDS ORDERED: SODIUM CHLORIDE 0.9% 500 ML 500 ML IV STA (11:33)
[2020-08-30] MEDS ORDERED: MORPHINE SULFATE 2 MG/ML SYRINGE IVP STA (11:33)
[2020-08-30] MEDS ORDERED: ASPIRIN 81 MG PO STA (11:33)
[2020-08-30 11:55] LABS: Basophils # (A) 0.1 k/uL (0-0.2); Basophils % (A) 1 %; Eosinophils # (A) 0.3 k/uL (0-0.7); Eosinophils % (A) 3 %; HCT 40.5 % (34.0-46.0); HGB 13.5 gm/dL (11.4-16.0); Lymphocytes # (A) 2.4 k/uL (1.0-4.8); Lymphocytes % (A) 23 %; MCH 30.3 pg (25.0-35.0); MCHC 33.3 g/dL (31.0-37.0); MCV 91.2 fL (80.0-100.0); Monocytes # (A) 0.4 k/uL (0-1.0); Monocytes % (A) 4 %; Neutrophils # (A) 7.1 k/uL (1.3-7.7); Neutrophils % (A) 69 %; Platelet Count 274 k/uL (150-450); RBC 4.44 m/uL (3.80-5.40); RDW 14.2 % (11.5-15.5); WBC 10.3 k/uL (3.8-10.6)
--- NOTE | 2020-08-30 12:12 | XR ---
EXAMINATION TYPE: XR chest 2V DATE OF EXAM: 08/30/2020 COMPARISON: 07/01/2020 HISTORY: 49-year-old female with chest pain TECHNIQUE: AP and lateral views FINDINGS: The heart is normal size. Aorta and pulmonary vasculature within normal limits. Low lung volumes with crowded vascular markings. There may be mild central bronchial cuffing. No consolidation or pleural effusion. Mild to moderate degenerative disc disease mid to lower thoracic spine. IMPRESSION: Hypoventilatory changes limit assessment. There may be mild central peribronchial cuffing which can b e seen with bronchitis or asthma. No focal infiltrate.
[2020-08-30 12:17] LABS: INR 0.9 (<1.2); Partial Thromboplastin Time 25.3 sec (22.0-30.0); Prothrombin Time 9.5 sec (9.0-12.0)
[2020-08-30 12:22] LABS: ALT 32 U/L (4-34); AST 29 U/L (14-36); African American GFR (CKD) >90 (>60 ml/min/1.73 sqM); Albumin 4.3 g/dL (3.5-5.0); Alkaline Phosphatase 72 U/L (38-126); Anion Gap 6 mmol/L; Blood Urea Nitrogen 18 mg/dL (7-17); Calcium 9.8 mg/dL (8.4-10.2); Carbon Dioxide 29 mmol/L (22-30); Chloride 103 mmol/L (98-107); Glucose 108 mg/dL (74-99); Lipase 41 U/L (23-300); Non-African American GFR(CKD) >90 (>60 ml/min/1.73 sqM); Potassium 3.8 mmol/L (3.5-5.1); Sodium 138 mmol/L (137-145); Total Bilirubin 0.6 mg/dL (0.2-1.3); Total Protein 7.4 g/dL (6.3-8.2)
[2020-08-30] MEDS ORDERED: NITROGLYCERIN SL TABS 0.4 MG TAB SUBLINGUAL PRN (13:04)
[2020-08-30] MEDS ORDERED: ALBUTEROL NEBULIZED 2.5 MG/3 ML INHALATION PRN (16:41)
[2020-08-30] MEDS ORDERED: CAFFEINE CITRATE 60 MG/3 ML VIAL IV PRN (19:43)
[2020-08-30] MEDS ORDERED: DIPYRIDAMOLE IV ONE (19:43)
[2020-08-30] MEDS ORDERED: AMINOPHYLLINE 500 MG/20 ML VIAL IV PRN (19:43)
[2020-08-30] MEDS ORDERED: SODIUM CHLORIDE 0.9% IV ONE (19:43)
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
[2020-08-30] MEDS ORDERED: ETODOLAC 400 MG TAB PO SCH (21:00)
[2020-08-30] MEDS: ARIPiprazole 5 MG TAB PO SCH (21:33)
[2020-08-31 05:40] LABS: Cholesterol 237 mg/dL (<200); HDL Cholesterol 32 mg/dL (40-60); LDL Cholesterol,Calculated 156 mg/dL (0-99); Triglycerides 246 mg/dL (<150)
[2020-08-31] MEDS ORDERED: NON FORMULARY DRUG (Umeclidinium Brm/Vilanterol Tr [Anoro Ellipta 62.5-25 Mcg Inh] 1 EACH INHALATION SCH (08:00)
[2020-08-31] MEDS: FORMOTEROL FUMARATE 20 MCG/2 ML NEBU INHALATION SCH ×2 (08:10→19:28)
[2020-08-31] MEDS: IPRATROPIUM 0.5 MG/2.5 ML NEBU INHALATION SCH ×4 (08:10→19:28)
[2020-08-31] MEDS ORDERED: NON FORMULARY DRUG (Vitamin B Complex [Vitamin B Complex] 1 EACH Capsule) PO SCH (09:00)
[2020-08-31] MEDS ORDERED: ASPIRIN 325 MG TAB PO SCH (09:00)
--- NOTE | 2020-08-31 10:08 | P.CRDCN ---
History of Present Illness Consult date: 08/31/20 History of present illness: CHIEF COMPLAINT: Chest pain HISTORY OF PRESENT ILLNESS: This is a 49-year old female with a past medical history significant for hypertension, COPD, CVA, memory impairment, and nicotine dependence. Patient states she does not follow with a online user experience strategist. We have been asked to see the patient in consultation for chest pain. Patient examined this morning at the bedside. Patient states she began having pain Thursday night as she was lying in bed. She states the pain was in the left upper part of her chest and folic a squeezing sensation. She denies radiation to the jaw and neck, or back. She denies any nausea or vomiting. She denies any shortness of breath. She states the pain persisted until yesterday at about 6 PM. At the time of examination this morning, the patient denies any chest pain or pressure. It is noted the patient has been evaluated multiple times in the emergency room here for chest pain. She was also recently evaluated at [facility] in February 2020. At that time patient underwent a dobutamine stress test which was negative for reversible ischemia. She also had an echocardiogram completed at that time revealing EF 55-60%. DIAGNOSTICS: EKG reveals sinus rhythm without signs of acute ischemia Chest xray there may be mild central peribronchial cuffing which can be seen with bronchitis or asthma. No focal infiltrate. Laboratory data: W BC 10.3. Hemoglobin 13.5. Platelet count 274. D-dimer 0.37. Sodium 138. Potassium 3.8. BUN 18. Creatinine 0.67. Troponin negative 3. Current home cardiac medications include hydrochlorothiazide 50 mg daily, and aspirin 81 mg daily REVIEW OF SYSTEMS: At the time of my exam: CONSTITUTIONAL: Denies fever or chills. HEENT: Denies blurred vision, vision changes, or eye pain. Denies hemoptysis CARDIOVASCULAR: Denies chest pain, orthopnea, PND or palpitations RESPIRATORY: No shortness of breath. GASTROINTESTINAL: Denies abdominal pain. Denies nausea or vomiting. HEMATOLOGIC: Denies bleeding disorders. GENITOURINARY: Denies any blood in urine. SKIN: Denies pruitis. Denies rash. PHYSICAL EXAM: VITAL SIGNS: Reviewed. GENERAL: Well-developed in no acute distress. HEENT: Head is normocephalic. Pupils are equal, round. Sclerae anicteric. Mucous membranes of the mouth are moist. Neck supple. No JVD or thyromegaly LUNGS: Respirations even and unlabored. Lungs essentially clear to auscultation bilaterally. HEART: Regular rate and rhythm. S1 and S2 heard. ABDOMEN: Soft. Nondistended. Nontender. EXTREMITIES: Right-sided weakness, which is baseline. No clubbing or cyanosis. Peripheral pulses intact. No lower extremity edema NEUROLOGIC: Awake and alert. Oriented x 3. ASSESSMENT: Chest pain, atypical Hypertension COPD History of CVA with residual right-sided weakness Nicotine dependence PLAN: An acute coronary event has been ruled out No need to repeat echocardiogram as this was performed in February 2020 at [facility] Nuris scan stress test has already been ordered per internal medicine. Await results. Nurse practitioner note has been reviewed by physician. Signing provider agrees with the documented findings, assessment, and plan of care. 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 History of Any Multi-Drug Resistant Organisms: None Reported Past Surgical History: Section, Tonsillectomy, Tubal Ligation Additional Past Surgical History / Comment(s): Past trach/peg tube, pt thinks some kind of brain/skull surgery while comatose in 2010 at [facility]. Past Anesthesia/Blood Transfusion Reactions: No Reported Reaction Past Psychological History: Anxiety Additional Psychological History / Comment(s): mood disorder. Pt resides alone in her apartment. She owns a cane but does not need to use it. She cannot drive, a friend takes her to [email or web address]. Smoking Status: Current every day smoker Past Alcohol Use History: None Reported Additional Past Alcohol Use History / Comment(s): Pt started smoking in 1989 and cut down to 2 cigarettes a day about 4-5 month ago. Past Drug Use History: None Reported - Past Family History Mother Family Medical History: Cancer Additional Family Medical History / Comment(s): Mother of cancer, pt does not know what type. Father Family Medical History: Cancer Additional Family Medical History / Comment(s): Father is alive and has had 3 different types of cancer but survived them all. Medications and Allergies Home Medications Medication Instructions Recorded Confirmed Type Dextroamphetamine/Amphetamine 20 mg PO DAILY 10/17/17 08/30/20 History [Adderall] levETIRAcetam [Keppra] 500 mg PO DAILY 10/17/17 08/30/20 History ARIPiprazole [Abilify] 5 mg PO HS 02/29/20 08/30/20 History Albuterol Inhaler [Ventolin Hfa 2 puff INHALATION RT-Q4H PRN 03/31/20 08/30/20 History Inhaler] Diclofenac Sodium [Voltaren] 75 mg PO BID 05/31/20 08/30/20 History Aspirin EC [Ecotrin Low Dose] 81 mg PO DAILY 07/16/20 08/30/20 History Potassium Chloride 10 meq PO DAILY 07/16/20 08/30/20 History Umeclidinium Brm/Vilanterol Tr 1 puff INHALATION RT-DAILY 07/16/20 08/30/20 History [Anoro Ellipta 62.5-25 Mcg INH] Vitamin B Complex 1 cap PO DAILY 07/16/20 08/30/20 History hydroCHLOROthiazide [Hydrodiuril] 50 mg PO DAILY 07/16/20 08/30/20 History Allergies Allergy/AdvReac Type Severity Reaction Status Date / Time cat dander Allergy Rash/Hives Verified 08/30/20 13:09 tomato Allergy Rash/Hives Verified 08/30/20 13:09 Physical Exam Vitals: Vital Signs Temp Pulse Pulse Resp BP BP Pulse Ox 08/31/20 08:33 97.9 F 71 16 101/70 97 08/31/20 08:30 64 08/31/20 08:29 64 08/31/20 08:19 64 08/31/20 03:00 98.1 F 61 18 100/60 96 08/30/20 21:00 98.4 F 78 18 103/70 96 08/30/20 14:47 74 16 08/30/20 14:46 97.6 F 74 16 117/77 100 08/30/20 14:00 65 16 106/80 100 08/30/20 13:30 66 18 117/78 99 08/30/20 13:00 66 18 111/76 100 08/30/20 12:30 64 17 99 08/30/20 12:00 115/69 08/30/20 11:30 82 L 08/30/20 11:19 98.0 F 70 18 108/73 100 Intake and Output 08/30/20 08/31/20 08/31/20 22:59 06:59 14:59 Intake Total 300 Balance 300 Intake: Oral 300 Other: Voiding Method Toilet Toilet Toilet # Voids 1 1 Weight 97.07 kg Results 08/30/20 11:41 08/30/20 11:41 Cardiac Enzymes 08/30/20 08/30/20 08/30/20 Range/Units 11:41 11:41 15:01 AST 29 (14-36) U/L Troponin I <0.012 <0.012 (0.000-0.034) ng/mL 08/30/20 Range/Units 17:35 AST (14-36) U/L Troponin I <0.012 (0.000-0.034) ng/mL Coagulation 08/30/20 Range/Units 11:41 PT 9.5 (9.0-12.0) sec APTT 25.3 (22.0-30.0) sec Lipids 08/30/20 Range/Units 19:42 Triglycerides 246 H (<150) mg/dL Cholesterol 237 H (<200) mg/dL HDL Cholesterol 32 L (40-60) mg/dL CBC 08/30/20 Range/Units 11:41 WBC 10.3 (3.8-10.6) k/uL RBC 4.44 (3.80-5.40) m/uL Hgb 13.5 (11.4-16.0) gm/dL Hct 40.5 (34.0-46.0) % Plt Count 274 (150-450) k/uL Comprehensive Metabolic Panel 08/30/20 Range/Units 11:41 Sodium 138 (137-145) mmol/L Potassium 3.8 (3.5-5.1) mmol/L Chloride 103 (98-107) mmol/L Carbon Dioxide 29 (22-30) mmol/L BUN 18 H (7-17) mg/dL Creatinine 0.67 (0.52-1.04) mg/dL Glucose 108 H (74-99) mg/dL Calcium 9.8 (8.4-10.2) mg/dL AST 29 (14-36) U/L ALT 32 (4-34) U/L Alkaline Phosphatase 72 (38-126) U/L Total Protein 7.4 (6.3-8.2) g/dL Albumin 4.3 (3.5-5.0) g/dL Current Medications Generic Name Dose Route Start Last Admin Trade Name Freq PRN Reason Stop Dose Admin Albuterol Sulfate 2.5 mg 08/30/20 16:41 Albuterol Nebulized 2.5 Mg/3 Ml INHALATION RT-Q4H PRN Shortness Of Breath Aminophylline 100 mg 08/30/20 19:43 Aminophylline 500 Mg/20 Ml Vial IV 08/31/20 23:00 ONCE PRN Patient Response Aripiprazole 5 mg 08/30/20 21:00 08/30/20 21:33 Aripiprazole 5 Mg Tab PO Not Given HS VILLA Aspirin 81 mg 08/31/20 09:00 Aspirin 81 Mg PO DAILY VILLA Caffeine Citrate 60 mg 08/30/20 19:43 Caffeine Citrate 60 Mg/3 Ml Vial IV 08/31/20 23:00 ONCE PRN Patient Response Formoterol Fumarate 20 mcg 08/31/20 08:00 08/31/20 08:10 Formoterol Fumarate 20 Mcg/2 Ml Nebu INHALATION 20 mcg RT-BID VILLA Administration Dipyridamole 55.3 mg/ Sodium 61.06 mls @ 915.9 mls/hr 08/30/20 19:43 Chloride IV 08/30/20 19:44 ONCE ONE Ipratropium [place] 0.5 mg 08/31/20 08:00 08/31/20 08:10 Ipratropium 0.5 Mg/2.5 Ml Nebu INHALATION 0.5 mg RT-QID VILLA Administration Levetiracetam 500 mg 08/31/20 09:00 Levetiracetam 500 Mg Tab PO DAILY VILLA Nitroglycerin 0.4 mg 08/30/20 13:04 Nitroglycerin Sl Tabs 0.4 Mg Tab SUBLINGUAL Q5M PRN Chest Pain Potassium Chloride 10 meq 08/31/20 09:00 Potassium Chloride Er 10 Meq Tab.Er.Prt PO DAILY VILLA Intake and Output 08/30/20 08/31/20 08/31/20 22:59 06:59 14:59 Intake Total 300 Balance 300 Intake: Oral 300 Other: Voiding Method Toilet Toilet Toilet # Voids 1 1 Weight 97.07 kg Patient Weight 09/01/20 06:59 Weight 97.07 kg 08/30/20 11:41 08/30/20 11:41
[2020-08-31] MEDS ORDERED: REGADENOSON 0.4 MG/5 ML SYRINGE IV ONE (10:15)
[2020-08-31] MEDS: POTASSIUM CHLORIDE ER 10 MEQ TAB.ER.PRT PO SCH (10:46)
[2020-08-31] MEDS: ASPIRIN 81 MG PO SCH (10:46)
[2020-08-31] MEDS: levETIRAcetam 500 MG TAB PO SCH (10:46)
[2020-08-31 11:00] VITALS: BMI 30.7
--- NOTE | 2020-08-31 11:47 | NM ---
EXAMINATION TYPE: NM stress lexiscan cardiolite DATE OF EXAM: 08/31/2020 COMPARISON: NONE HISTORY: History of stroke and prior tobacco use presents with chest pain TECHNIQUE: After the intravenous administration of 10.3 mCi Tc 99m Sestamibi - Cardiolite resting SP ECT images acquired 45 minutes post injection. The patient received 0.4mg Lexiscan, 25.6 mCi Tc 99m Sestamibi - Stress images obtained [address] injection FINDINGS: Review of stress and rest SPECT images demonstrates no distinct perfusion abnormality. Gated analysi s shows normal wall motion with an estimated left ventricular ejection fraction of 59 %. IMPRESSION: No scintigraphic evidence for reversible ischemia.
--- NOTE | 2020-08-31 12:50 | EST ---
EXERCISE STRESS AGE: 49 SEX: F HT: 5'10" WT: 214 lbs. PROTOCOL: Lexiscan STAGE: N/A DURATION OF EXERCISE: N/A HEART RATE REST: 59 BLOOD PRESSURE REST: 106/63 MAXIMUM HEART RATE ACHIEVED: 96 MAXIMUM BLOOD PRESSURE: 118/63 85% MPHR: 145 100% MPHR: 171 METS: N/A INDICATIONS: Chest pain. CLINICAL INFORMATION: Baseline rhythm is a sinus mechanism, rate of 59, normal axis, intervals, normal echocardiogram. Baseline blood pressure 106/63 mmHg. Patient received an injection of Lexiscan. Electrocardiograph monitoring revealed no evidence of diagnostic ischemic ST deviation. Cardiolite was injected per protocol. CONCLUSION: 1. Nondiagnostic electrocardiograph stress testing. 2. Nuclear images will be reported separately. MMODL / IJN: [id number] /
[2020-08-31] MEDS ORDERED: MECLIZINE 12.5 MG TAB PO PRN (15:23)
--- NOTE | 2020-08-31 18:26 | P.CNNES ---
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 Neurology is consulted for the dizziness. She said that that she's been having dizziness for the last 3 days. She feels like the room is spinning and she feels lightheaded and she feels the combination of both. She feels like happens with position and subsides with resting. Denies any diplopia, denies any ringing in the ears or hearing loss. Denies any new focal weakness or numbness. Denies any slurring of the speech or any difficulty getting her words out. She denies any fever or any cough any recent head trauma. Patient stated that she smokes 2 cigarettes a day. She is on aspirin 81 mg daily at home and she is on Keppra 500 mg 1 tablet twice a day at. She's not on the statins at home and cannot tell me why. At baseline patient walks with a walker. She follows up with her primary care but not a neurologist. Workup in the hospital consisted of: Distal vital signs on presentation is blood pressure of 108/73, heart rate of 70, rest. 18, temperature of 98.0 Fahrenheit oral and pulse ox of 100% room air. EKG is reported as normal sinus rhythm. Ventricular rate of 68. Normal EKG. Cardiology is on board. Stress test during this ED visits is reported as nondiagnostic electrode cardiographic stress testing. Nuclear images will be reported separately. Lipid panel: Triglyceride is 246, cholesterol 237, LDL of 156 and HDL 32. TSH is 3.02 which is normal. white blood cells 10.3 (normal). Frias virus PCR was not detected. She received morphine the 2 mg on 1141 and that was yesterday. Of note Dr. Kimball (neuro-hospitalist) evaluate the patient the an here at [facility] on 03/02/2020 for headaches. She had MRI of the brain on 03/03/2020 which was reported as old left temporal lobe focal infarct unchanged. Right posterior frontal lobe lacunar infarct unchanged. Small cortical infarct on the right parietal lobe. An EEG was done on 03/02/2020 and was reported as normal. Patient is on seizure medication 500 mg 1 tablet twice a day. She is also on aspirin 81 mg daily Review of Systems Review of system: The 12 point system was reviewed and apparent positive and negative per HPI. Past Medical History Past Medical History: Chest Pain / Angina, COPD, CVA/TIA, Memory Impairment, Neurologic Disorder Additional Past Medical History / Comment(s): Pt has history of brain injury following fall down flight of stairs in 2010 and was comatose for 3 months, then when she regained consciousness she had a CVA with R sided paralysis/p arasthesia/decreased vision R eye/decreased hearing R ear/loss of sensation r inside of mouth-takes care with what food she eats/no longer has feelings of hunger/cannot taste or smell, pt denies ever having a seizure, hypothyroid, occasional pedal edema, occasional headaches. History of Any Multi-Drug Resistant Organisms: None Reported Past Surgical History: Section, Tonsillectomy, Tubal Ligation Additional Past Surgical History / Comment(s): Past trach/peg tube, pt thinks some kind of brain/skull surgery while comatose in 2010 at [facility]. Past Anesthesia/Blood Transfusion Reactions: No Reported Reaction Past Psychological History: Anxiety Additional Psychological History / Comment(s): mood disorder. Pt resides alone in her apartment. She owns a cane but does not need to use it. She cannot drive, a friend takes her to [employer]. Smoking Status: Current every day smoker Past Alcohol Use History: None Reported Additional Past Alcohol Use History / Comment(s): Pt started smoking in 1989 and cut down to 2 cigarettes a day about 4-5 month ago. Past Drug Use History: None Reported - Past Family History Mother Family Medical History: Cancer Additional Family Medical History / Comment(s): Mother of cancer, pt does not know what type. Father Family Medical History: Cancer Additional Family Medical History / Comment(s): Father is alive and has had 3 different types of cancer but survived them all. Medications and Allergies Home Medications Medication Instructions Recorded Confirmed Type Dextroamphetamine/Amphetamine 20 mg PO DAILY 10/17/17 08/30/20 History [Adderall] levETIRAcetam [Keppra] 500 mg PO DAILY 10/17/17 08/30/20 History ARIPiprazole [Abilify] 5 mg PO HS 02/29/20 08/30/20 History Albuterol Inhaler [Ventolin Hfa 2 puff INHALATION RT-Q4H PRN 03/31/20 08/30/20 History Inhaler] Diclofenac Sodium [Voltaren] 75 mg PO BID 05/31/20 08/30/20 History Aspirin EC [Ecotrin Low Dose] 81 mg PO DAILY 07/16/20 08/30/20 History Potassium Chloride 10 meq PO DAILY 07/16/20 08/30/20 History Umeclidinium Brm/Vilanterol Tr 1 puff INHALATION RT-DAILY 07/16/20 08/30/20 History [Anoro Ellipta 62.5-25 Mcg INH] Vitamin B Complex 1 cap PO DAILY 07/16/20 08/30/20 History hydroCHLOROthiazide [Hydrodiuril] 50 mg PO DAILY 07/16/20 08/30/20 History Allergies Allergy/AdvReac Type Severity Reaction Status Date / Time cat dander Allergy Rash/Hives Verified 08/30/20 13:09 tomato Allergy Rash/Hives Verified 08/30/20 13:09 Physical Examination - Vital Signs Vital Signs: Vital Signs Temp Pulse Pulse Resp BP Pulse Ox 08/31/20 16:37 70 08/31/20 16:24 70 08/31/20 15:00 98.0 F 68 18 109/66 96 08/31/20 13:04 96 08/31/20 11:50 64 08/31/20 11:42 60 08/31/20 08:40 64 08/31/20 08:33 97.9 F 71 16 101/70 97 08/31/20 08:30 64 08/31/20 08:29 64 08/31/20 08:19 64 08/31/20 03:00 98.1 F 61 18 100/60 96 08/30/20 21:00 98.4 F 78 18 103/70 96 Intake and Output 08/31/20 08/31/20 08/31/20 06:59 14:59 22:59 Intake Total 540 Balance 540 Intake: Oral 540 Other: Voiding Method Toilet Toilet Toilet # Voids 1 1 Weight 97.07 kg GENERAL: The patient is lying in bed and is not in acute distress. CHEST: The heart rate is regular rate rhythm. No murmurs to auscultation. LUNG: Clear to auscultation bilaterally no wheezing noted throughout. Not labored breathing. ABDOMEN/GI: Bowel sounds present in all 4 quadrants. No tenderness to palpation throughout. NEUROLOGICAL: Higher mental function: The patient is awake, alert, oriented to self, place and time. Patient is following commands. No aphasia and no neglect. Cranial nerves: The pupils are round, equal and reactive to light and accommo dation. Visual newman are full to confrontation throughout. Extraocular movement is intact no nystagmus is noted. Facial sensation is normal to touch throughout. The facial strength is normal throughout. Hearing is slightly decreased bilaterally to hand rub. Tongue is midline and moved [id number] without any difficulty. No dysarthria is noted. Shoulder shrug is normal bilaterally. Motor: Gait was using a walker but had no others assistance. Walking is slightly slow and not swaying to one side or the other. The strengtt. Right hand tobacco packer is 5-, slight prontator drift over the right. Right hip flexion is 4/5. Otherwise 5/5 throughout. Normal tone and bulk. Cerebellum: Slight dysmetria on the right but I feel due to weakness of right upper extremity. No ataxia noted throughout. Sensation: Sensation is decreased over the right side (upper and lower extremity) Reflexes (right/left): 2+ throughout. Plantars is upgoing over the right but downgoing over left. Results AST of 29, ALT of 32. Calcium is 9.8 Conduction study is PT of 9.5, INR 0.9, PTT of 25.3. - Laboratory Findings CBC and BMP: 08/30/20 11:41 08/30/20 11:41 Abnormal Lab Findings: Abnormal Labs 08/30/20 08/30/20 11:41 19:42 BUN 18 H Glucose 108 H Triglycerides 246 H Cholesterol 237 H LDL Cholesterol, Calc 156 H HDL Cholesterol 32 L Assessment and Plan Assessment: This is a 49-year-old woman who presented to the emergency department on the tall 2019 for chest pain. Neurologist consulted for dizziness. Vertigo: Seems benign positional vertigo. Traumatic brain injury with evidence of left temporal lobe encephalomalacia, right frontal lacunar and small right parietal) about 10 years ago Chest pain with some shortness of breath Hypertension Dyslipidemia Tobacco use Plan: Patient was started on meclizine 12.5 mg 1 tablet 3 times a day when necessary. We'll change it to a standing dose to make sure the patient gets the medication. Continue aspirin 81 mg. I started the patient on Lipitor 40 mg. Continue Keppra 500 mg 1 tablet twice a day for seizure prophylaxis. Recommend getting orthostatics vitals (blood pressure with heart rate). As reported as cerebral atrophy. Old left temporal lobe infarct. No acute intracranial abnormality. No change. CT of the head: Discharge the patient needs to follow-up with a neurologist within 2-3 weeks. If the patient continues to have dizziness recommend the ENT as an outpatient. Orthostatic: Supine: Blood pressure is 105/67 with a heart rate of 72. Sitting is 116/69 with a heart rate of 74 and standing his blood pressure of 113/69 with a heart rate of 98. And these are normal. Thank you for the consultation. There is no neurology service over the weekend. Please perfect serve if needed. Dr. Kimball will take over on 09/03/20. Nomi Rea M.D. Neuro-hospitalist Time with Patient: Greater than 30
--- NOTE | 2020-08-31 18:55 | CT ---
EXAMINATION TYPE: CT brain wo con DATE OF EXAM: 08/31/2020 COMPARISON: 06/22/2020 HISTORY: Dizziness. CT DLP: 1098.4 mGycm Automated exposure control for dose reduction was used. There is hypodensity in the left temporal lobe anteriorly related to old infarct. There is cerebral c ortical atrophy. There is no mass effect nor midline shift. There is no sign of intracranial hemorrha ge. The calvarium is intact. IMPRESSION: Cerebral atrophy. Old left temporal lobe infarct. No acute intracranial abnormality. No change.
--- NOTE | 2020-08-31 20:05 | PN ---
PROGRESS NOTE This is a 49-year-old white female who states she is too dizzy to walk or go home. She is lightheaded, dizzy. We are going to get a neurology consult, Dr. Kimball. We are going to start her on Antivert 12.5 t.i.d., get PT/OT involved. CARDIOVASCULAR: S1, S2. LUNGS: Clear. GI: Soft. HEMATOLOGY: Negative Homans. PSYCH: Anxious, nervous, crying. ASSESSMENT: 1. Dizziness, possibly vertigo. Start Antivert. Wait for neurology consult. 2. Atypical chest pain. Cleared by Cardiology, as she had a normal Persantine stress test today. 3. History of lumbar disc disease with lumbar epidurals as an outpatient. 4. Bipolar. 5. Prior stroke. Please see further orders. Wait for Neurology. Start Antivert as a trial. MMODL / IJN: [id number] /
[2020-08-31] MEDS: ARIPiprazole 5 MG TAB PO SCH (20:36)
[2020-08-31] MEDS ORDERED: ATORVASTATIN 20 MG TAB PO SCH (21:00)
[2020-08-31] MEDS ORDERED: ATORVASTATIN 40 MG TAB PO SCH (21:00)
[2020-09-01] MEDS: IPRATROPIUM 0.5 MG/2.5 ML NEBU INHALATION SCH ×2 (07:48→11:03)
[2020-09-01] MEDS: FORMOTEROL FUMARATE 20 MCG/2 ML NEBU INHALATION SCH (07:48)
[2020-09-01] MEDS: ASPIRIN 81 MG PO SCH (08:19)
[2020-09-01] MEDS: levETIRAcetam 500 MG TAB PO SCH (08:19)
[2020-09-01] MEDS: POTASSIUM CHLORIDE ER 10 MEQ TAB.ER.PRT PO SCH (08:19)
[2020-09-01 08:23] VITALS: BP 103/70; RESP 16; TEMP 98.4
[2020-09-01] MEDS ORDERED: MECLIZINE 12.5 MG TAB PO SCH (09:00)
--- NOTE | 2020-09-01 09:07 | P.PN ---
Subjective Progress Note Date: 09/01/20 CHIEF COMPLAINT: Chest pain HISTORY OF PRESENT ILLNESS: This is a 49-year old female with a past medical history significant for hypertension, COPD, CVA, memory impairment, and nicotine dependence. Patient states she does not follow with a social sciences research scientist. We have been asked to see the patient in consultation for chest pain. Patient examined this morning at the bedside. Patient states she began having pain Thursday night as she was lying in bed. She states the pain was in the left upper part of her chest and folic a squeezing sensation. She denies radiation to the jaw and neck, or back. She denies any nausea or vomiting. She denies any shortness of breath. She states the pain persisted until yesterday at about 6 PM. At the time of examination this morning, the patient denies any chest pain or pressure. It is noted the patient has been evaluated multiple times in the emergency room here for chest pain. She was also recently evaluated at [facility] in February 2020. At that time patient underwent a dobutamine stress test which was negative for reversible ischemia. She also had an echocardiogram completed at that time revealing EF 55-60%. 09/01/2020 Patient examined this morning at the bedside. She denies chest pain or pressure. She denies stress of breath. She underwent Lexiscan stress test yesterday which was negative for reversible ischemia. She continues to report some dizziness overnight. Patient was evaluated by neurology and started on meclizine. PHYSICAL EXAM: VITAL SIGNS: Reviewed. GENERAL: Well-developed in no acute distress. HEENT: Head is normocephalic. Pupils are equal, round. Sclerae anicteric. Mucous membranes of the mouth are moist. Neck supple. No JVD or thyromegaly LUNGS: Respirations even and unlabored. Lungs essentially clear to auscultation bilaterally. HEART: Regular rate and rhythm. S1 and S2 heard. ABDOMEN: Soft. Nondistended. Nontender. EXTREMITIES: Right-sided weakness, which is baseline. No clubbing or cyanosis. Peripheral pulses intact. No lower extremity edema NEUROLOGIC: Awake and alert. Oriented x 3. ASSESSMENT: Chest pain, atypical Hypertension COPD History of CVA with residual right-sided weakness Nicotine dependence Vertigo PLAN: Continue current cardiac medications Patient is stable for discharge from a cardiac perspective. Will defer to internal medicine. Patient may follow up outpatient with Dr. Samman Nurse practitioner note has been reviewed by physician. Signing provider agrees with the documented findings, assessment, and plan of care. Objective - Vital Signs Vital signs: Vital Signs Temp 98.4 F 09/01/20 08:22 Pulse 82 09/01/20 08:22 Resp 16 09/01/20 08:22 BP 103/70 09/01/20 08:22 Pulse Ox 96 09/01/20 08:22 Intake & Output 08/31/20 09/01/20 09/01/20 18:59 06:59 18:59 Intake Total 540 300 Balance 540 300 Weight 97.07 kg Intake: Oral 540 300 Other: Voiding Method Toilet Toilet Toilet # Voids 1 1 - Labs CBC & Chem 7: 08/30/20 11:41 08/30/20 11:41
[2020-09-01 11:10] VITALS: PULSE 76
== END 2020-09-01 15:18 | disposition home or self-care (01) ==
LOC: EC 11:17 → 1SOBS 13:56
PROVIDERS: ADMIT Family Medicine; ATTEND Family Medicine
DX: R07.89 Other chest pain (principal); R06.02 Shortness of breath; R53.1 Weakness; R53.83 Other fatigue; R42 Dizziness and giddiness; I10 Essential (primary) hypertension; J44.9 Chronic obstructive pulmonary disease, unspecified; I25.10 Atherosclerotic heart disease of native coronary artery without angina pectoris; I69.398 Other sequelae of cerebral infarction; R43.9 Unspecified disturbances of smell and taste; E03.9 Hypothyroidism, unspecified; F41.9 Anxiety disorder, unspecified; G40.909 Epilepsy, unspecified, not intractable, without status epilepticus; F39 Unspecified mood [affective] disorder; M54.16 Radiculopathy, lumbar region; G93.89 Other specified disorders of brain; L65.9 Nonscarring hair loss, unspecified; R91.8 Other nonspecific abnormal finding of lung field; I69.351 Hemiplegia and hemiparesis following cerebral infarction affecting right dominant side; Z20.828 Contact with and (suspected) exposure to other viral communicable diseases; M51.86 Other intervertebral disc disorders, lumbar region; F31.9 Bipolar disorder, unspecified; F17.210 Nicotine dependence, cigarettes, uncomplicated; Z79.899 Other long term (current) drug therapy; Z79.1 Long term (current) use of non-steroidal anti-inflammatories (NSAID); Z79.82 Long term (current) use of aspirin; Z91.09 Other allergy status, other than to drugs and biological substances; Z91.018 Allergy to other foods; Z87.820 Personal history of traumatic brain injury; Z91.81 History of falling; Z98.890 Other specified postprocedural states; Z90.89 Acquired absence of other organs; Z98.51 Tubal ligation status; Z80.9 Family history of malignant neoplasm, unspecified
CPT/HCPCS: 93005 ×2; 96361; 96374; 99285; 36415; 94640 ×4; 93017; 85379; 83880; 80061; 80053; 84443; 83690; 83735; 84484; 85025; 85610; 85730; 87635; 71046; 70450; 78452; G0378 ×3; A9500; J2270; J2785

== ENCOUNTER 2020-09-13 11:20 | Inpatient (IN) | payer MEDICARE, OTHER ==
[2020-09-13] MEDS ORDERED: HYDROmorphone 0.5 MG/0.5 ML SYRINGE IVP STA (12:01)
[2020-09-13] MEDS ORDERED: SODIUM CHLORIDE 0.9% 500 ML 500 ML IV STA (12:01)
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
[2020-09-13 12:14] LABS: Glucose,Whole Blood 98 mg/dL (75-99)
[2020-09-13 12:32] LABS: Basophils # (A) 0.1 k/uL (0-0.2); Basophils % (A) 1 %; Eosinophils # (A) 0.3 k/uL (0-0.7); Eosinophils % (A) 4 %; HCT 36.6 % (34.0-46.0); HGB 12.2 gm/dL (11.4-16.0); Lymphocytes # (A) 2.4 k/uL (1.0-4.8); Lymphocytes % (A) 27 %; MCH 30.7 pg (25.0-35.0); MCHC 33.4 g/dL (31.0-37.0); MCV 91.9 fL (80.0-100.0); Mean Platelet Volume 7.7; Monocytes # (A) 0.3 k/uL (0-1.0); Monocytes % (A) 3 %; Neutrophils # (A) 5.6 k/uL (1.3-7.7); Neutrophils % (A) 64 %; Platelet Count 274 k/uL (150-450); RBC 3.98 m/uL (3.80-5.40); WBC 8.8 k/uL (3.8-10.6)
[2020-09-13 12:41] LABS: ALT 31 U/L (4-34); AST 28 U/L (14-36); African American GFR (CKD) >90 (>60 ml/min/1.73 sqM); Albumin 3.8 g/dL (3.5-5.0); Alkaline Phosphatase 61 U/L (38-126); Anion Gap 5 mmol/L; Blood Urea Nitrogen 10 mg/dL (7-17); Calcium 9.2 mg/dL (8.4-10.2); Carbon Dioxide 27 mmol/L (22-30); Chloride 108 mmol/L (98-107); Glucose 104 mg/dL (74-99); Non-African American GFR(CKD) >90 (>60 ml/min/1.73 sqM); Sodium 140 mmol/L (137-145); Total Bilirubin 0.4 mg/dL (0.2-1.3); Total Protein 6.7 g/dL (6.3-8.2)
[2020-09-13 12:46] LABS: Potassium 4.5 mmol/L (3.5-5.1)
--- NOTE | 2020-09-13 13:00 | CT ---
EXAMINATION TYPE: CT brain wo con DATE OF EXAM: 09/13/2020 COMPARISON: 08/31/2020 INDICATION: Neuro deficit, acute stroke suspected DLP: 1099.4 mGycm, Automated exposure control for dose reduction was used. CONTRAST: None CT of the brain is performed utilizing 3 mm thick sections through the posterior fossa and 3 mm thick sections through the remaining calvarium. Study is performed within 24 hours of arrival to the hosp ital. No abnormal hyperdensity is present to suggest an acute intracranial hemorrhage. No mass lesion is evident. No acute infarcts are evident. Old infarct or atrophy of the left temporal lobe may be present. This is stable from comparison Ventricles and sulci are prominent for the patient age. Paranasal sinuses and mastoid air cells within the [id number] are clear. IMPRESSIONS: 1. Atrophy. An old infarct of the anterior left temporal lobe may be present. 2. No acute intracranial process radiographically apparent.
[2020-09-13 13:06] LABS: INR 0.9 (<1.2); Prothrombin Time 9.7 sec (9.0-12.0)
[2020-09-13 13:21] LABS: Appearance,Urine Clear (Clear); Bilirubin,Urine Negative (Negative); Blood,Urine Negative (Negative); Color,Urine Light Yellow; Glucose,Urine (UA) Negative (Negative); Ketones,Urine Negative (Negative); Leukocyte Esterase,Urine Negative (Negative); Nitrite,Urine Negative (Negative); Protein,Urine Negative (Negative); Specific Gravity,Urine 1.005 (1.001-1.035); Urobilinogen,Urine <2.0 mg/dL (<2.0)
--- NOTE | 2020-09-13 13:39 | XR ---
EXAMINATION TYPE: XR chest 2V DATE OF EXAM: 09/13/2020 COMPARISON: Chest x-ray 2 weeks ago. HISTORY: Right-sided weakness. TECHNIQUE: Frontal and lateral views of the chest are obtained. FINDINGS: Low lung volumes with eventration of diaphragms is redemonstrated. There is no new suspicio us focal air space opacity, pleural effusion, or pneumothorax seen. The cardiac silhouette size jin ins within normal limits. The osseous structures are intact. IMPRESSION: No new suspicious acute process.
[2020-09-13] MEDS ORDERED: ACETAMINOPHEN TAB 325 MG TAB PO PRN (13:55)
[2020-09-13] MEDS ORDERED: NALOXONE 0.4 MG/ML 1 ML VIAL IV PRN (13:55)
[2020-09-13] MEDS ORDERED: ALBUTEROL NEBULIZED 2.5 MG/3 ML INHALATION PRN (16:01)
[2020-09-13] MEDS: SODIUM CHLORIDE 0.9% 1,000 ML IV SCH (17:03)
--- NOTE | 2020-09-13 19:40 | HP ---
HISTORY AND PHYSICAL This patient is a 49-year-old white female with increased weakness, possible stroke, dizziness, unable to keep her eyes open, worsening weakness. States she has no energy, she has had a headache for the last 24 hours. She has been in the ER three times in the last three days. MEDICATIONS: 1. Keppra 500 daily. 2. Abilify 5 at night. 3. Voltaren 75 b.i.d. 4. Ecotrin 81 daily. 5. Adderall 20 mg daily. 6. 1 puff daily. 7. Lasix 20 daily. 8. Mycostatin powder b.i.d. 9. Potassium 10 mEq daily. ALLERGIES: CAT DANDER, TOMATOES. PAST MEDICAL HISTORY: Angina, COPD, CVA, TIA, memory impairment, neurologic disorder. She has a history of falling down the stairs and hit her head 3 months ago. She states she no longer feels hunger, cannot taste or smell. Hypothyroid. Difficulty keeping her eyes open is the biggest complaint. SURGERIES: , tonsillectomy, tubal ligation. She is a current everyday smoker. She has had recent cardiac and pulmonary workup. FAMILY HISTORY: Father has cancer. Mother of cancer. PHYSICAL EXAMINATION: VITAL SIGNS: Temperature 98.2, pulse 57-60, blood pressure 94 to 111 over 60s to 50s, oxygen 99% on room air. Respiratory rate 16-20. EKG: Sinus rhythm. LUNGS: Clear. CARDIOVASCULAR: S1, S2. PSYCH: Flat mood and affect. OPHTHALMOLOGIC: Has difficulty keeping her eyes open. She has worsening right-sided weakness, not a candidate for tPA. Previous left temporal infarct on CT. No intracranial hemorrhage. Get Neurology on consult. Ophthalmology for eye weakness. Please see further orders. Due to persistent weakness and headache of unclear etiology we are going to run a COVID test on her and wait for Neurology. MMODL / IJN: [id number] /
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
[2020-09-13] MEDS: ARIPiprazole 5 MG TAB PO SCH (22:07)
[2020-09-13] MEDS: MECLIZINE 12.5 MG TAB PO SCH (22:07)
[2020-09-13] MEDS: ETODOLAC 400 MG TAB PO SCH (22:07)
[2020-09-13] MEDS: ATORVASTATIN 40 MG TAB PO SCH (22:08)
[2020-09-14] MEDS: ONDANSETRON 4 MG/2 ML VIAL IVP PRN ×2 (04:27→14:04)
--- NOTE | 2020-09-14 07:05 | ECHOF ---
Referral Reason:Right-sided weakness MEASUREMENTS -------- HEIGHT: 180.3 cm WEIGHT: 101.2 kg BP: 94/53 RVIDd: 2.8 cm (< 3.3) IVSd: 1.2 cm (0.6 - 1.1) LVIDd: 4.5 cm (3.9 - 5.3) LVPWd: 1.2 cm (0.6 - 1.1) IVSs: 1.7 cm LVIDs: 2.8 cm LVPWs: 1.6 cm LA Diam: 3.1 cm (2.7 - 3.8) LAESV Index (A-L): 24.94 ml/m Ao Diam: 3.8 cm (2.0 - 3.7) AV Cusp: 2.3 cm (1.5 - 2.6) MV EXCURSION: 10.412 mm (> 18.000) MV EF SLOPE: 61 mm/s (70 - 150) EPSS: 2.6 cm MV E Hardik: 1.17 m/s MV DecT: 248 ms MV A Hardik: 0.93 m/s MV E/A Ratio: 1.25 RAP: 5.00 mmHg RVSP: 28.58 mmHg FINDINGS -------- Sinus rhythm. This was a technically adequate study. The left ventricular size is normal. There is borderline concentric left ventricular hypertrophy. Overall left ventricular systolic function is normal with, an EF between 60 - 65 %. The right ventricle is normal in size. Normal LA size by volume 22+/-6 ml/m2. The right atrium is normal in size. Interatrial and interventricular septum intact. The aortic valve is trileaflet and appears structurally normal. Trace to mild aortic regurgitation. The mitral valve leaflets are mildly thickened. Mild mitral annular calcification present. Mild m itral regurgitation is present. Mild tricuspid regurgitation present. Right ventricular systolic pressure is normal at < 35 mmHg. Trace/mild (physiologic) pulmonic regurgitation. The aortic root is mildly dilated measuring 3.1 cm. Normal inferior vena cava with normal inspiratory collapse consistent with estimated right atrial pre ssure of 5 mmHg. There is no pericardial effusion. CONCLUSIONS -------- 1. The left ventricular size is normal. 2. There is borderline concentric left ventricular hypertrophy. 3. Overall left ventricular systolic function is normal with, an EF between 60 - 65 %. 4. The aortic valve is trileaflet and appears structurally normal. 5. Trace to mild aortic regurgitation. 6. The mitral valve leaflets are mildly thickened. 7. Mild mitral annular calcification present. 8. Mild mitral regurgitation is present. 9. Mild tricuspid regurgitation present. 10. Trace/mild (physiologic) pulmonic regurgitation. 11. The aortic root is mildly dilated measuring 3.1 cm. 12. There is no pericardial effusion. PATIENT ACCESS COORDINATOR: Edita Armas RDCS
[2020-09-14] MEDS ORDERED: NON FORMULARY DRUG (Vitamin B Complex [Vitamin B Complex] 1 EACH Capsule) PO SCH (09:00)
[2020-09-14] MEDS: NON FORMULARY DRUG (Dextroamphetamine/Amphetamine [Adderall] 20 MG Tablet) PO SCH (09:50)
[2020-09-14] MEDS: ASPIRIN 81 MG PO SCH (09:55)
[2020-09-14] MEDS: POTASSIUM CHLORIDE ER 10 MEQ TAB.ER.PRT PO SCH (09:55)
[2020-09-14] MEDS: ETODOLAC 400 MG TAB PO SCH ×2 (09:55→22:52)
[2020-09-14] MEDS: SODIUM CHLORIDE 0.9% 1,000 ML IV SCH ×2 (09:56→14:26)
[2020-09-14] MEDS: levETIRAcetam 500 MG TAB PO SCH (09:56)
[2020-09-14] MEDS: FUROSEMIDE 20 MG TAB PO SCH (09:56)
[2020-09-14] MEDS: MECLIZINE 12.5 MG TAB PO SCH ×3 (09:56→22:52)
[2020-09-14] MEDS ORDERED: LORazepam 2 MG/ML INJ IV PRN ×2 (10:50→10:51)
[2020-09-14] MEDS: HYDROmorphone 0.5 MG/0.5 ML SYRINGE IVP PRN (14:04)
--- NOTE | 2020-09-14 15:59 | MR ---
EXAMINATION TYPE: MR brain/cspine wo DATE OF EXAM: 09/14/2020 COMPARISON: 05/05/2014 HISTORY: Right sided weakness, neck pain, TBI CONTRAST: Performed utilizing 0 mL intravenous Gadavist gadolinium contrast. TECHNIQUE: Multiplanar, multiecho imaging on a 3.0 Deanne magnet is performed through the brain. Stud y is performed within 24 hours of arrival to the hospital. The craniovertebral junction is normal. The pituitary is normal. Diffusion-weighted imaging is performed. No abnormal hyperintensity is present to suggest an acute i ntracranial infarct or acute ischemic change. Hyperintensities on inversion recovery weighted sequences within the right centrum semiovale this cur rently measures 0.6 x 1.3 cm in the right frontal lobe subcortical white matter 0.6 cm in the centrum semiovale Ventricles and sulci are appropriate for the patient age. IMPRESSIONS: 1. Nonspecific white matter changes within the right centrum semiovale and subcortical right frontal lobe. These appear slightly more prominent than the comparison study. EXAMINATION TYPE: MR brain/cspine wo DATE OF EXAM: 09/14/2020 COMPARISON: None HISTORY: Right sided weakness, neck pain, TBI CONTRAST: Performed utilizing 0 mL intravenous Gadavist gadolinium contrast. TECHNIQUE: Multiplanar multiecho imaging on a 3.0 Deanne magnet is performed through the cervical spin e. FINDINGS: The craniovertebral junction is normal. Vertebral body alignment is normal. C7-T1: Right paracentral focal bulge has moderate anterior thecal sac compression. No spinal canal s tenosis is present. Neural foramen are patent.. C6-7: Mild central protrusion is present with minimal anterior thecal sac compression. No cord contac t is evident. No spinal canal stenosis or neural foraminal stenosis is present.. C5-6: Broad-based disc bulge is present greater into the right paracentral region. This has cord cont act. AP spinal canal stenosis is present. There is some mild bilateral foraminal narrowing due to unc overtebral joint hypertrophy. C4-5: No focal disc herniation or significant disc bulge is evident. No spinal canal stenosis or hilton ral foraminal stenosis is present. C3-4: No focal disc herniation or significant disc bulge is evident. No spinal canal stenosis or hilton ral foraminal stenosis is present. C2-3: No focal disc herniation or significant disc bulge is evident. No spinal canal stenosis or hilton ral foraminal stenosis is present. IMPRESSIONS: 1. Bulging disc C5-C6 with mild cord contact, greater into the right paracentral region. 2. Small focal disc herniation C6-7 and C7-T1. 3. Mild foraminal narrowing C5-6 due to uncovertebral joint hypertrophy.
--- NOTE | 2020-09-14 19:05 | PN ---
PROGRESS NOTE The patient had a MRI of her brain today which shows nonspecific white matter changes within the right centrum semiovale and subcortical right frontal lobe, more prominent than comparison study. Will wait for Neurology recommendations as she can barely keep her eyes open and she is extremely weak. May be cut on some of her medications. Echo shows good ejection fraction and no significant findings. We will wait for Neurology recommendations prior to being discharged home. Continue to treat for COPD. Frias virus is negative. Please see further orders. Cardiovascular S1-S2. Lungs clear. PSYCH: Flat mood and affect. Hematology: Negative Homans. Possibly get PT, OT to ambulate her. MMODL / IJN: [id number] /
[2020-09-14] MEDS: ARIPiprazole 5 MG TAB PO SCH (22:52)
[2020-09-14] MEDS: ATORVASTATIN 40 MG TAB PO SCH (22:53)
--- NOTE | 2020-09-15 00:14 | P.PN ---
Subjective Progress Note Date: 09/14/20 Patient states her right leg feels numb from knee down, left leg is numb only in the foot. Patient is laying comfortably in the bed. Patient is slightly short of breath. Objective - Vital Signs Vital signs: Vital Signs Temp 97.6 F 09/14/20 08:30 Pulse 75 09/14/20 08:40 Resp 16 09/14/20 08:30 BP 130/67 09/14/20 08:40 Pulse Ox 100 09/14/20 08:30 Intake & Output 09/13/20 09/14/20 09/14/20 18:59 06:59 18:59 Intake Total 222 660 Output Total 600 Balance 222 -600 660 Weight 101.151 kg 101.5 kg Intake: Oral 222 660 Output: Urine 600 Other: Voiding Method Toilet Toilet # Voids 1 1 - Exam Essentially unchanged. 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 Rule out CVA. Rule out spinal stenosis. * Syncopal spell while taking shower. * Hypertension * Dyslipidemia * Tobacco user * Obesity Plan: * MRI of brain revealed nonspecific white matter ischemic change within the right centrum semiovale and subcortical right frontal lobe. Slightly prominent as compared to previously, but is overall unchanged. No acute stroke. No mass. * MRI of the cervical spine, revealed bulging discs C5 6 with mild cord contact, greater into the right paracentral region. No significant spinal stenosis. * Continue aspirin and Lipitor. * Check orthostatics. * Continue Keppra. * If dizziness persists, recommend ENT follow-up as outpatient * Carotid Doppler. * Neurologically clear for discharge, if carotid Doppler comes back negative. * Neurology service not available over the weekend. Please perfect serve for any concerns.
--- NOTE | 2020-09-15 09:04 | US ---
EXAMINATION TYPE: US carotid duplex BILAT DATE OF EXAM: 09/15/2020 COMPARISON: NONE CLINICAL HISTORY: Numbness, tingling, rule out TIA. EXAM MEASUREMENTS: RIGHT: Peak Systolic Velocity (PSV) cm/sec ----- Right CCA: 79.0 ----- Right ICA: 79.0 ----- Right ECA: 62.5 ICA/CCA ratio: 1.0 RIGHT: End Diastole cm/sec ----- Right CCA: 23.0 ----- Right ICA: 36.2 ----- Right ECA: 15.3 LEFT: Peak Systolic Velocity (PSV) cm/sec ----- Left CCA: 91.8 ----- Left ICA: 87.9 ----- Left ECA: 90.5 ICA/CCA ratio: 1.0 LEFT: End Diastole cm/sec ----- Left CCA: 24.5 ----- Left ICA: 38.7 ----- Left ECA: 12.8 VERTEBRALS (direction of flow): Right Vertebral: Antegrade Left Vertebral: Antegrade Rhythm: Normal No significant stenosis seen. No elevated velocities. Minimal plaque seen. Incidental note is made a 7 mm short axis lymph node. Finding compatible shotty lymphadenopathy IMPRESSION: 1. Bilateral atherosclerotic plaque with no significant hemodynamic stenosis. Criteria for Assigning % of Stenosis / Diameter reduction (Estimation based on the indirect measurements of the internal carotid artery velocities (ICA PSV). 1. Normal (no stenosis)=ICA PSV < 125 cm/s: ratio < 2.0: ICA EDV<40 cm/s. 2. Less than 50% stenosis=ICA PSV < 125 cm/s: ratio < 2.0: ICA EDV<40 cm/s. 3. 50 to 69% stenosis=ICA PSV of 125 to 230 cm/s: ration 2.0 ? 4.0: ICA EDV 40-100 cm/s. 4. Greater than 70% stenosis to near occlusion= ICA PSV > 230 cm/s: ratio > 4.0: ICA EDV > 100 cm/s. 5. Near occlusion= ICA PSV velocities may be low or undetectable: variable ratio and ICA EDV. 6. Total occlusion=unable to detect flow.
[2020-09-15] MEDS: levETIRAcetam 500 MG TAB PO SCH (10:26)
[2020-09-15] MEDS: FUROSEMIDE 20 MG TAB PO SCH (10:26)
[2020-09-15] MEDS: NON FORMULARY DRUG (Dextroamphetamine/Amphetamine [Adderall] 20 MG Tablet) PO SCH (10:26)
[2020-09-15] MEDS: ASPIRIN 81 MG PO SCH (10:27)
[2020-09-15] MEDS: SODIUM CHLORIDE 0.9% 1,000 ML IV SCH ×2 (10:27→17:37)
[2020-09-15] MEDS: POTASSIUM CHLORIDE ER 10 MEQ TAB.ER.PRT PO SCH (10:27)
[2020-09-15] MEDS: MECLIZINE 12.5 MG TAB PO SCH ×3 (11:44→20:52)
[2020-09-15] MEDS: ETODOLAC 400 MG TAB PO SCH ×2 (11:44→20:51)
[2020-09-15] MEDS: ATORVASTATIN 40 MG TAB PO SCH (20:51)
[2020-09-15] MEDS: ARIPiprazole 5 MG TAB PO SCH (20:52)
--- NOTE | 2020-09-16 06:12 | PN ---
PROGRESS NOTE A 49-year-old white female, worsening right-sided weakness, has lightheadedness and dizziness and unable to ambulate. Will need physical therapy to work with her and possibly will need rehab placement like [facility] Cardiovascular S1-S2. Lungs are clear. GI soft. PSYCH: Flat mood and affect. Neurologic generalized weakness x4. Unable to ambulate due to dizziness and weakness. Continue with PT, OT. Await for Neurology recommendations. Transferred AFC home or the ECF home. MMODL / IJN: [id number] /
[2020-09-16] MEDS: NON FORMULARY DRUG (Dextroamphetamine/Amphetamine [Adderall] 20 MG Tablet) PO SCH (08:20)
[2020-09-16] MEDS: HYDROmorphone 0.5 MG/0.5 ML SYRINGE IVP PRN ×2 (09:04→17:22)
[2020-09-16] MEDS: ASPIRIN 81 MG PO SCH (09:05)
[2020-09-16] MEDS: ETODOLAC 400 MG TAB PO SCH ×2 (09:05→21:39)
[2020-09-16] MEDS: POTASSIUM CHLORIDE ER 10 MEQ TAB.ER.PRT PO SCH (09:06)
[2020-09-16] MEDS: FUROSEMIDE 20 MG TAB PO SCH (09:06)
[2020-09-16] MEDS: MECLIZINE 12.5 MG TAB PO SCH ×3 (09:06→21:39)
[2020-09-16] MEDS: SODIUM CHLORIDE 0.9% 1,000 ML IV SCH (09:10)
[2020-09-16] MEDS: levETIRAcetam 500 MG TAB PO SCH (10:32)
[2020-09-16] MEDS: ARIPiprazole 5 MG TAB PO SCH (21:38)
[2020-09-16] MEDS: ATORVASTATIN 40 MG TAB PO SCH (21:38)
--- NOTE | 2020-09-17 04:00 | PN ---
PROGRESS NOTE A 49-year-old white female who is unable to ambulate due to severe dizziness or weakness. She will have to go to the the [facility] neuro placement due to extreme weakness. Waiting for neurology recommendations. She has worsening findings on her brain. Cortisol level is 6. TSH 2.2. of the brain. Carotid study is negative. She will need PT, OT and discharge home to a [facility] for continued physical therapy. MMODL / IJN: [id number] /
[2020-09-17] MEDS: MECLIZINE 12.5 MG TAB PO SCH ×3 (07:56→23:00)
[2020-09-17] MEDS: ETODOLAC 400 MG TAB PO SCH ×2 (07:56→22:59)
[2020-09-17] MEDS: ASPIRIN 81 MG PO SCH (07:56)
[2020-09-17] MEDS: levETIRAcetam 500 MG TAB PO SCH (07:57)
[2020-09-17] MEDS: FUROSEMIDE 20 MG TAB PO SCH (07:57)
[2020-09-17] MEDS: NON FORMULARY DRUG (Dextroamphetamine/Amphetamine [Adderall] 20 MG Tablet) PO SCH (07:58)
[2020-09-17] MEDS: POTASSIUM CHLORIDE ER 10 MEQ TAB.ER.PRT PO SCH (07:58)
[2020-09-17] MEDS: HYDROmorphone 0.5 MG/0.5 ML SYRINGE IVP PRN (11:39)
--- NOTE | 2020-09-17 17:47 | P.PN ---
Subjective Progress Note Date: 09/17/20 She was seen at bedside and she feels like she is doing better today compared to her initial presentation. She feels her dizziness is for the most part controlled. 29 any new weakness numbness or visual disturbance. She stated that the she had a traumatic brain injury in 2010 but she never had any seizure according to the patient and she's been on Keppra 500 mg 1 tab daily as a seizure prophylaxis. Objective - Vital Signs Vital signs: Vital Signs Temp 98.2 F 09/17/20 14:14 Pulse 60 09/17/20 14:14 Resp 17 09/17/20 14:14 BP 106/72 09/17/20 14:14 Pulse Ox 97 09/17/20 14:14 Intake & Output 09/16/20 09/17/20 09/17/20 18:59 06:59 18:59 Other: Voiding Method Toilet # Voids 1 1 - Exam On examination patient is a middle aged female, who appears older than her stated age. She is alert and awake fully oriented. Speech is hoarse, but no aphasia or dysarthria. On cranial examination pupils are round and reactive to light, visual newman are full to confrontation, extraocular muscles are intact with no nystagmus. Facial sensation is normal. Face is symmetric, tongue protrudes to the midline. Palatal elevation and sensation normal, hearing and shoulder shrug normal. Motor: Gait deferred. On muscle strength testing there is no pronator drift. The strength is essentially normal, except right deltoid is 5-, right senior software tester is 5- and right hip flexion 5-. The strength is normal on the left side. Tone and bulk of muscles normal. Sensory touch is equal. No ataxia for [id number] testing, Reflexes are diminished and plantars are possibly upgoing. 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 Rule out CVA. Rule out spinal stenosis. * Syncopal spell while taking shower. * Hypertension * Dyslipidemia * Tobacco user * Obesity Plan: MR the brain is reported as nonspecific white matter change within the right centrum semiovale or valve and subcortical right frontal lobe. These appear slightly more prominent than the comparison study on 05/05/2014. I Personally reviewed the MRI the patient does have an old left encephalomalacia over the left temporal and I did see the nonspecific white matter change. MRI of the cervical spine is reported as bulging disc at C4-C5 with mild cord the contact, greater into the right paracentral region. Small focal disc herniation at C6-C7 and C7-T1. Mild foraminal narrowing at C5-C6 due to unovertebral joint hypertrophy. I recommended the patient follows up with her orthopedic or neurosurgeon as an outpatient. I will think the patient does not need any surgical intervention for her disc herniation but I think it's good to have an evaluation and to follow up with them every so often. Carotid duplex is reported as bilateral atherosclerotic plaque with no significant hemodynamic stenosis. Continue aspirin 81 mg and Lipitor 40 mg daily. Physical therapy and occupation therapy are consulted. Patient is on Keppra 500 mg daily 1 tab daily (which I feel is low) but patient is using as a seizure prophylaxis since the traumatic brain injury 2010 and she said she never had a seizure. I recommended the patient follow-up with a neurologist as an outpatient and we'll defer adjusting the Keppra medication to them. If dizziness persists, recommend ENT follow-up as an outpatient. I recommended the patient follow up with a neurologist within 1-2 weeks. There is no further neurology workup needed. Neurology will sign off. Please reconsult if needed Time with Patient: Less than 30
[2020-09-17] MEDS: ATORVASTATIN 40 MG TAB PO SCH (22:59)
[2020-09-17] MEDS: ARIPiprazole 5 MG TAB PO SCH (23:00)
--- NOTE | 2020-09-18 00:04 | PN ---
PROGRESS NOTE 49-year-old white female with generalized weakness, refusing to go to the correction. CARDIOVASCULAR: S1, S2. Lungs clear. GI soft. Hematology negative Homans. Psych: Fair mood and affect. ASSESSMENT: Generalized weakness, fatigue and dizziness. Medications have been lowered. PT/OT at home. She is refusing to go to the correction. MMODL / IJN: [id number] /
[2020-09-18 02:42] VITALS: RESP 16
[2020-09-18 07:50] VITALS: BP 89/54; PULSE 70; TEMP 97.9
[2020-09-18] MEDS: MECLIZINE 12.5 MG TAB PO SCH (09:48)
[2020-09-18] MEDS: ASPIRIN 81 MG PO SCH (09:48)
[2020-09-18] MEDS: levETIRAcetam 500 MG TAB PO SCH (09:48)
[2020-09-18] MEDS: FUROSEMIDE 20 MG TAB PO SCH (09:48)
[2020-09-18] MEDS: NON FORMULARY DRUG (Dextroamphetamine/Amphetamine [Adderall] 20 MG Tablet) PO SCH (09:49)
[2020-09-18] MEDS: POTASSIUM CHLORIDE ER 10 MEQ TAB.ER.PRT PO SCH (09:49)
[2020-09-18] MEDS: ETODOLAC 400 MG TAB PO SCH (09:49)
--- NOTE | 2020-09-21 21:35 | CDI ---
Documentation Clarification Form Date: 09/22/20 From: Konstantin Narayanan Phone: If you have a question about this query, please contact Elizabeth Montiel Journalism Teacher at [phone] between 8am and 5pm. Admit Date: 09/13/2020 01:55:00 PM Patient Name: Betsy Rodríguez Visit Number: [id number] Discharge Date: 09/18/2020 12:56:00 PM ATTENTION: The Clinical Documentation Specialists (CDI) and [facility] Coding Staff appreciate your assistance in clarifying documentation. Please respond to the clarification below the line at the bottom and electronically sign. The CDI & [facility] Coding staff will review the response and follow-up if needed. Please note: Queries are made part of the Legal Health Record. If you have any questions, please contact the author of this message via ITS. Dr. Chris Bocanegra MD., The patients principal diagnosis has not been clearly identified and requires clarification. She presented with the right sided weakness. History/Risk factors: Angina,COPD,CVA,TIA, memoryimpairment, neurologic disorder Clinical Indicators: his patient is a 49-year-old white female with increasedweakness,possible stroke, dizziness,unable tokeep her eyes open, worseningweakness Radiology findings: Atrophy.An oldinfarctof the anterior left temporal lobe may be present. Vital Signs: Temperature 98.2 F Pulse Rate 70 57 L Respiratory 16 20 Rate [id number] 94/53 O2 Sat by Pulse 99 99 Oximetry Treatment: Aspirin, PT/OT 49-year-old female with history oftraumatic brain injuryin October 2010, and also reportedly has ?strokewhich affected her right side in 2012 and 2014, came to the hospital withdizziness,headache, subjective worsening of right-sided weakness.Rule outCVA.Rule outspinal stenosis. Syncopal spell while taking shower. In your professional opinion, can you please clarify which diagnosis, after study, accounted for the patients presenting symptoms and was the reason chiefly responsible for the admission? Possible CVA Syncopal Spell Other, Specified___ MTDD
--- NOTE | 2020-09-27 10:04 | PN ---
PROGRESS NOTE Possible CVA and syncope spell. MMODL / IJN: [id number] /
--- NOTE | 2020-10-07 23:19 | DS ---
DISCHARGE SUMMARY MEDICATIONS: 1. Adderall 20 mg daily. 2. Keppra 500 daily. 3. Abilify 5 mg daily. 4. Ventolin HFA 2 puffs q.4 hours p.r.n. 5. Ultram 35 mg b.i.d. 6. Aspirin 81 mg daily. 7. Anoro Ellipta 1 puff daily. 8. Vitamin B one tablet daily. 9. Antivert 12.5 t.i.d. 10.Lipitor 40 daily. 11.Nitroglycerin sublingual p.r.n. 12.Potassium chloride 10 mEq daily. 13.Lasix 20 mg daily. 14.Nystatin powder topically b.i.d. 15.Ventolin HFA 2 puffs q.4 hours p.r.n. CONDITION: Stable. PROGNOSIS: Guarded. Ambulate as tolerated. This is a white female who was admitted with a syncopal spell, possible CVA, dehydration. Carotid Doppler showed no carotid stenosis. She was treated for asthma, COPD, weakness, fatigue, dizziness. She was stabilized and was sent home after she was able to ambulate without dizziness or passing out. Antivert was given. Rehydration was given. Prognosis extremely guarded. MMODL / IJN: [id number] /
== END 2020-09-18 12:56 | disposition home or self-care (01) | DRG 65 ==
LOC: EC 11:20 → OBSVTOIN 13:55 → 3SCARD 13:55 → INTOOBSV 13:55 → 3SCARD 13:55 → UNDOADMOB 13:55 → 5NMEDONC 09-15 22:29
PROVIDERS: ADMIT Family Medicine; ATTEND Family Medicine
DX: I63.9 Cerebral infarction, unspecified (principal); I69.351 Hemiplegia and hemiparesis following cerebral infarction affecting right dominant side; J44.9 Chronic obstructive pulmonary disease, unspecified; Y93.E1 Activity, personal bathing and showering; E78.5 Hyperlipidemia, unspecified; I10 Essential (primary) hypertension; Z20.828 Contact with and (suspected) exposure to other viral communicable diseases; E03.9 Hypothyroidism, unspecified; E66.9 Obesity, unspecified; F41.9 Anxiety disorder, unspecified; F17.210 Nicotine dependence, cigarettes, uncomplicated; H54.7 Unspecified visual loss; H91.91 Unspecified hearing loss, right ear; Z68.31 Body mass index [BMI] 31.0-31.9, adult; Z98.51 Tubal ligation status; Z98.891 History of uterine scar from previous surgery; Z91.018 Allergy to other foods; Z91.048 Other nonmedicinal substance allergy status; Z79.899 Other long term (current) drug therapy; Z79.82 Long term (current) use of aspirin; Z87.820 Personal history of traumatic brain injury; Z80.9 Family history of malignant neoplasm, unspecified; Z90.89 Acquired absence of other organs; Z91.81 History of falling
CPT/HCPCS: 36415; 70450; 70551; 71046; 72141; 80053; 81003; 82533; 84443; 84484; 85025; 85610; 85730; 87635; 93005; 93306; 93880; 94640; 96361; 96374; 99285

== ENCOUNTER 2020-09-22 19:06 | Inpatient (IN) | payer MEDICARE, OTHER ==
[2020-09-22] MEDS ORDERED: SODIUM CHLORIDE 0.9% 500 ML 500 ML IV STA (19:38)
[2020-09-22] MEDS ORDERED: MORPHINE SULFATE 2 MG/ML SYRINGE IVP ONE (19:39)
--- NOTE | 2020-09-22 19:44 | ED ---
SOB HPI - General Chief Complaint: Shortness of Breath Stated Complaint: ELIZ Time Seen by Provider: 09/22/20 19:32 Source: patient, EMS Mode of arrival: EMS Limitations: no limitations - History of Present Illness Initial Comments: Patient is a 49-year-old female with history of COPD, CVA with right sided weakness, presenting to the emergency department via EMS with complaints of shortness of breath and increased weakness to her right side. Patient was recently admitted for the same complaint and was discharged 4 days ago. Patient states that they wanted to send her to rehab however she refused at that time. Patient is now saying that she thinks she needs to go to rehab. Patient does live by herself, she does not feel like she can take care of herself at home and is having a hard time getting around her house. She denies any chest pains. She is currently on 2 L of oxygen, she states she was supposed to be sent home with a breathing treatment machine but she has not yet received it. She denies any fever, chills, no nausea or vomiting. She does have some mild low back pain, she denies any abdominal pain, dysuria. She believes that her right-sided weakness seems to be getting a little bit worse. Patient had a full workup including a brain MRI, carotid scans this past week all were stable. Recently tested negative for Covid. Patient has no other complaints at this time. Upon arrival to the ER, her vitals are stable. - Related Data Home Medications Medication Instructions Recorded Confirmed Dextroamphetamine/Amphetamine 20 mg PO DAILY 10/17/17 09/22/20 [Adderall] levETIRAcetam [Keppra] 500 mg PO DAILY 10/17/17 09/22/20 ARIPiprazole [Abilify] 5 mg PO HS 02/29/20 09/22/20 Diclofenac Sodium [Voltaren] 75 mg PO BID 05/31/20 09/22/20 Aspirin EC [Ecotrin Low Dose] 81 mg PO DAILY 07/16/20 09/22/20 Umeclidinium Brm/Vilanterol Tr 1 puff INHALATION RT-DAILY 07/16/20 09/22/20 [Anoro Ellipta 62.5-25 Mcg INH] Vitamin B Complex 1 cap PO DAILY 07/16/20 09/22/20 Furosemide [Lasix] 20 mg PO DAILY 09/13/20 09/22/20 Nystatin 100,000 Unit/gm Powd 1 applic TOPICAL BID 09/13/20 09/22/20 [Mycostatin Powder] Potassium Chloride ER [K-Dur 10] 10 meq PO DAILY 09/13/20 09/22/20 Previous Rx's Medication Instructions Recorded Atorvastatin [Lipitor] 40 mg PO HS 90 Days #90 tab 09/01/20 Nitroglycerin Sl Tabs [Nitrostat] 0.4 mg SUBLINGUAL Q5M PRN 90 Days 09/01/20 #90 tab Albuterol Nebulized [Ventolin 2.5 mg INHALATION RT-Q4H PRN ml 09/17/20 Nebulized] Allergies Allergy/AdvReac Type Severity Reaction Status Date / Time cat dander Allergy Rash/Hives Verified 09/22/20 23:19 tomato Allergy Rash/Hives Verified 09/22/20 23:19 Review of Systems ROS Statement: Those systems with pertinent positive or pertinent negative responses have been documented in the HPI. ROS Other: All systems not noted in ROS Statement are negative. 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 History of Any Multi-Drug Resistant Organisms: None Reported Past Surgical History: Section, Tonsillectomy, Tubal Ligation Additional Past Surgical History / Comment(s): Past trach/peg tube, pt thinks some kind of brain/skull surgery while comatose in 2010 at [facility]. Past Anesthesia/Blood Transfusion Reactions: No Reported Reaction Past Psychological History: Anxiety Smoking Status: Current every day smoker Past Alcohol Use History: None Reported Past Drug Use History: None Reported - Past Family History Mother Family Medical History: Cancer Additional Family Medical History / Comment(s): Mother of cancer, pt does not know what type. Father Family Medical History: Cancer Additional Family Medical History / Comment(s): Father is alive and has had 3 different types of cancer but survived them all. General Exam - General Exam Comments Initial Comments: GENERAL: Patient is well-developed and well-nourished. Patient is nontoxic and in no acute distress. HEAD: Atraumatic, normocephalic. EYES: Pupils equal round and reactive to light, extraocular movements intact, sclera anicteric, conjunctiva are normal. Eyelids were unremarkable. ENT: TMs normal, nares patent, oropharynx clear without exudates. Moist mucous membranes. NECK: Normal range of motion, supple without lymphadenopathy or JVD. LUNGS: Unlabored respirations. Breath sounds clear to auscultation bilaterally and equal. No wheezes rales or rhonchi. HEART: Regular rate and rhythm without murmurs, rubs or gallops. ABDOMEN: Soft, nontender, normoactive bowel sounds. No guarding, no rebound. No masses appreciated. : Deferred MUSCULOSKELETAL: History of right-sided weakness at baseline. 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 No pitting or edema. No clubbing or cyanosis. NEUROLOGICAL: Patient is alert and oriented x 3. Motor and sensory are also intact. Cranial nerves II through XII grossly intact. Symmetrical smile. Normal speech. PSYCH: Normal mood, normal affect. SKIN: Warm, Dry, normal turgor, no rashes or lesions noted. Limitations: no limitations Course Vital Signs 09/22/20 09/22/20 09/22/20 19:11 20:00 21:20 Temperature 98.6 F Pulse Rate 68 60 Respiratory 16 16 16 Rate Blood Pressure 116/70 108/65 O2 Sat by Pulse 99 97 Oximetry 09/22/20 22:51 Temperature Pulse Rate 59 L Respiratory 16 Rate Blood Pressure 102/62 O2 Sat by Pulse 97 Oximetry Medical Decision Making - Medical Decision Making Patient is a 49-year-old female with history of CVA with right-sided weakness, COPD presenting with shortness of breath and increased right-sided weakness. Patient was just discharged from this hospital a few days ago for similar complaint. It was recommended that patient stay and go to rehab however she refused at that time. Patient's vital signs are stable upon arrival, her exam shows no acute process this time. Patient's labs are stable, normal white count. Troponin is normal, BNP is 118. Urine shows no evidence of infection at this time. Chest x-ray also shows no acute process. I discussed case with Dr. Bocanegra who is in agreement with admission for dyspnea, placement. Case discused with Dr. ames. - Lab Data Result diagrams: 09/22/20 19:38 09/22/20 19:38 Lab Results 09/22/20 09/22/20 09/22/20 Range/Units 19:38 19:38 19:38 WBC 9.4 (3.8-10.6) k/uL RBC 3.94 (3.80-5.40) m/uL Hgb 12.3 (11.4-16.0) gm/dL Hct 36.5 (34.0-46.0) % MCV 92.5 (80.0-100.0) fL MCH 31.3 (25.0-35.0) pg MCHC 33.8 (31.0-37.0) g/dL RDW 13.8 (11.5-15.5) % Plt Count 257 (150-450) k/uL MPV 8.0 Neutrophils % 53 % Lymphocytes % 37 % Monocytes % 4 % Eosinophils % 3 % Basophils % 2 % Neutrophils # 5.0 (1.3-7.7) k/uL Lymphocytes # 3.4 (1.0-4.8) k/uL Monocytes # 0.4 (0-1.0) k/uL Eosinophils # 0.3 (0-0.7) k/uL Basophils # 0.1 (0-0.2) k/uL PT 9.7 (9.0-12.0) sec INR 0.9 (<1.2) APTT 24.7 (22.0-30.0) sec Sodium 142 (137-145) mmol/L Potassium 4.2 (3.5-5.1) mmol/L Chloride 108 H (98-107) mmol/L Carbon Dioxide 29 (22-30) mmol/L Anion Gap 5 mmol/L BUN 13 (7-17) mg/dL Creatinine 0.61 (0.52-1.04) mg/dL Est GFR (CKD-EPI)AfAm >90 (>60 ml/min/1.73 sqM) Est GFR (CKD-EPI)NonAf >90 (>60 ml/min/1.73 sqM) Glucose 103 H (74-99) mg/dL Plasma Lactic Acid Tin (0.7-2.0) mmol/L Calcium 9.2 (8.4-10.2) mg/dL Magnesium 2.0 (1.6-2.3) mg/dL Total Bilirubin 0.3 (0.2-1.3) mg/dL AST 21 (14-36) U/L ALT 23 (4-34) U/L Alkaline Phosphatase 84 (38-126) U/L Creatine Kinase 72 (30-135) U/L Troponin I (0.000-0.034) ng/mL NT-Pro-B Natriuret Pep pg/mL Total Protein 6.5 (6.3-8.2) g/dL Albumin 3.7 (3.5-5.0) g/dL Urine Color Urine Appearance (Clear) Urine pH (5.0-8.0) Ur Specific Lutz (1.001-1.035) Urine Protein (Negative) Urine Glucose (UA) (Negative) Urine Ketones (Negative) Urine Blood (Negative) Urine Nitrite (Negative) Urine Bilirubin (Negative) Urine Urobilinogen (<2.0) mg/dL Ur Leukocyte Esterase (Negative) Urine RBC (0-5) /hpf Urine WBC (0-5) /hpf Ur Squamous Epith Cells (0-4) /hpf Calcium Oxalate Crystal (None) /hpf Amorphous Sediment (None) /hpf Urine Bacteria (None) /hpf Hyaline Casts (0-2) /lpf Urine Mucus (None) /hpf 09/22/20 09/22/20 09/22/20 Range/Units 19:38 19:38 19:38 WBC (3.8-10.6) k/uL RBC (3.80-5.40) m/uL Hgb (11.4-16.0) gm/dL Hct (34.0-46.0) % MCV (80.0-100.0) fL MCH (25.0-35.0) pg MCHC (31.0-37.0) g/dL RDW (11.5-15.5) % Plt Count (150-450) k/uL MPV Neutrophils % % Lymphocytes % % Monocytes % % Eosinophils % % Basophils % % Neutrophils # (1.3-7.7) k/uL Lymphocytes # (1.0-4.8) k/uL Monocytes # (0-1.0) k/uL Eosinophils # (0-0.7) k/uL Basophils # (0-0.2) k/uL PT (9.0-12.0) sec INR (<1.2) APTT (22.0-30.0) sec Sodium (137-145) mmol/L Potassium (3.5-5.1) mmol/L Chloride (98-107) mmol/L Carbon Dioxide (22-30) mmol/L Anion Gap mmol/L BUN (7-17) mg/dL Creatinine (0.52-1.04) mg/dL Est GFR (CKD-EPI)AfAm (>60 ml/min/1.73 sqM) Est GFR (CKD-EPI)NonAf (>60 ml/min/1.73 sqM) Glucose (74-99) mg/dL Plasma Lactic Acid Tin 1.3 (0.7-2.0) mmol/L Calcium (8.4-10.2) mg/dL Magnesium (1.6-2.3) mg/dL Total Bilirubin (0.2-1.3) mg/dL AST (14-36) U/L ALT (4-34) U/L Alkaline Phosphatase (38-126) U/L Creatine Kinase (30-135) U/L Troponin I <0.012 (0.000-0.034) ng/mL NT-Pro-B Natriuret Pep 118 pg/mL Total Protein (6.3-8.2) g/dL Albumin (3.5-5.0) g/dL Urine Color Urine Appearance (Clear) Urine pH (5.0-8.0) Ur Specific Lutz (1.001-1.035) Urine Protein (Negative) Urine Glucose (UA) (Negative) Urine Ketones (Negative) Urine Blood (Negative) Urine Nitrite (Negative) Urine Bilirubin (Negative) Urine Urobilinogen (<2.0) mg/dL Ur Leukocyte Esterase (Negative) Urine RBC (0-5) /hpf Urine WBC (0-5) /hpf Ur Squamous Epith Cells (0-4) /hpf Calcium Oxalate Crystal (None) /hpf Amorphous Sediment (None) /hpf Urine Bacteria (None) /hpf Hyaline Casts (0-2) /lpf Urine Mucus (None) /hpf 09/22/20 Range/Units 21:00 WBC (3.8-10.6) k/uL RBC (3.80-5.40) m/uL Hgb (11.4-16.0) gm/dL Hct (34.0-46.0) % MCV (80.0-100.0) fL MCH (25.0-35.0) pg MCHC (31.0-37.0) g/dL RDW (11.5-15.5) % Plt Count (150-450) k/uL MPV Neutrophils % % Lymphocytes % % Monocytes % % Eosinophils % % Basophils % % Neutrophils # (1.3-7.7) k/uL Lymphocytes # (1.0-4.8) k/uL Monocytes # (0-1.0) k/uL Eosinophils # (0-0.7) k/uL Basophils # (0-0.2) k/uL PT (9.0-12.0) sec INR (<1.2) APTT (22.0-30.0) sec Sodium (137-145) mmol/L Potassium (3.5-5.1) mmol/L Chloride (98-107) mmol/L Carbon Dioxide (22-30) mmol/L Anion Gap mmol/L BUN (7-17) mg/dL Creatinine (0.52-1.04) mg/dL Est GFR (CKD-EPI)AfAm (>60 ml/min/1.73 sqM) Est GFR (CKD-EPI)NonAf (>60 ml/min/1.73 sqM) Glucose (74-99) mg/dL Plasma Lactic Acid Tin (0.7-2.0) mmol/L Calcium (8.4-10.2) mg/dL Magnesium (1.6-2.3) mg/dL Total Bilirubin (0.2-1.3) mg/dL AST (14-36) U/L ALT (4-34) U/L Alkaline Phosphatase (38-126) U/L Creatine Kinase (30-135) U/L Troponin I (0.000-0.034) ng/mL NT-Pro-B Natriuret Pep pg/mL Total Protein (6.3-8.2) g/dL Albumin (3.5-5.0) g/dL Urine Color Yellow Urine Appearance Clear (Clear) Urine pH 6.5 (5.0-8.0) Ur Specific Lutz 1.026 (1.001-1.035) Urine Protein Negative (Negative) Urine Glucose (UA) Negative (Negative) Urine Ketones Negative (Negative) Urine Blood Negative (Negative) Urine Nitrite Negative (Negative) Urine Bilirubin 1+ H (Negative) Urine Urobilinogen 4.0 (<2.0) mg/dL Ur Leukocyte Esterase Small H (Negative) Urine RBC 2 (0-5) /hpf Urine WBC 8 H (0-5) /hpf Ur Squamous Epith Cells 5 H (0-4) /hpf Calcium Oxalate Crystal Occasional H (None) /hpf Amorphous Sediment Rare H (None) /hpf Urine Bacteria Rare H (None) /hpf Hyaline Casts 3 H (0-2) /lpf Urine Mucus Occasional H (None) /hpf - EKG Data EKG Comments: Normal sinus rhythm, normal ECG, no signs of an acute ischemia. Ventricular rate 63, TN interval 126, QT 424. Similar to previous EKG on 09/13/2020. Disposition Clinical Impression: Dyspnea, Unable to care for self Disposition: ADMITTED IP TO THIS [facility] Condition: Stable Time of Disposition: 22:43 Decision Date: 09/22/20 Decision Time: 22:43
[2020-09-22 20:04] LABS: Basophils # (A) 0.1 k/uL (0-0.2); Basophils % (A) 2 %; Eosinophils # (A) 0.3 k/uL (0-0.7); Eosinophils % (A) 3 %; HCT 36.5 % (34.0-46.0); HGB 12.3 gm/dL (11.4-16.0); Lymphocytes # (A) 3.4 k/uL (1.0-4.8); Lymphocytes % (A) 37 %; MCH 31.3 pg (25.0-35.0); MCHC 33.8 g/dL (31.0-37.0); MCV 92.5 fL (80.0-100.0); Monocytes # (A) 0.4 k/uL (0-1.0); Monocytes % (A) 4 %; Neutrophils % (A) 53 %; Platelet Count 257 k/uL (150-450); RBC 3.94 m/uL (3.80-5.40); RDW 13.8 % (11.5-15.5); WBC 9.4 k/uL (3.8-10.6)
[2020-09-22 20:22] LABS: ALT 23 U/L (4-34); AST 21 U/L (14-36); African American GFR (CKD) >90 (>60 ml/min/1.73 sqM); Albumin 3.7 g/dL (3.5-5.0); Alkaline Phosphatase 84 U/L (38-126); Anion Gap 5 mmol/L; Blood Urea Nitrogen 13 mg/dL (7-17); Calcium 9.2 mg/dL (8.4-10.2); Carbon Dioxide 29 mmol/L (22-30); Chloride 108 mmol/L (98-107); Creatine Kinase 72 U/L (30-135); Glucose 103 mg/dL (74-99); Non-African American GFR(CKD) >90 (>60 ml/min/1.73 sqM); Potassium 4.2 mmol/L (3.5-5.1); Sodium 142 mmol/L (137-145); Total Bilirubin 0.3 mg/dL (0.2-1.3); Total Protein 6.5 g/dL (6.3-8.2)
[2020-09-22 20:26] LABS: INR 0.9 (<1.2); Partial Thromboplastin Time 24.7 sec (22.0-30.0); Prothrombin Time 9.7 sec (9.0-12.0)
--- NOTE | 2020-09-22 20:47 | XR ---
EXAMINATION TYPE: XR chest 2V DATE OF EXAM: 09/22/2020 COMPARISON: 09/13/2020 HISTORY: Right-sided weakness TECHNIQUE: Single view FINDINGS: Heart and mediastinum are normal. Lungs are clear of consolidation. There are no hilar mass es. Costophrenic angles are clear. Bony thorax is intact. There is spurring in the lower thoracic spi ne. IMPRESSION: No active cardiopulmonary disease. Normal heart. No change.
[2020-09-22 21:45] LABS: Amorphous Sediment,Urine Rare /hpf; Appearance,Urine Clear (Clear); Bacteria,Urine Rare /hpf; Bilirubin,Urine 1+ (Negative); Blood,Urine Negative (Negative); Calcium Oxalate Crystals,Urine Occasional /hpf; Color,Urine Yellow; Glucose,Urine (UA) Negative (Negative); Hyaline Casts,Urine 3 /lpf (0-2); Ketones,Urine Negative (Negative); Leukocyte Esterase,Urine Small (Negative); Mucus,Urine Occasional /hpf; Nitrite,Urine Negative (Negative); PH, Urine 6.5 (5.0-8.0); Protein,Urine Negative (Negative); RBC,Urine 2 /hpf (0-5); Specific Gravity,Urine 1.026 (1.001-1.035); Squamous Epithelial Cell,Urine 5 /hpf (0-4); WBC,Urine 8 /hpf (0-5)
[2020-09-22] MEDS ORDERED: ONDANSETRON 4 MG/2 ML VIAL IVP PRN (22:43)
[2020-09-22] MEDS ORDERED: NALOXONE 0.4 MG/ML 1 ML VIAL IV PRN (22:43)
[2020-09-22] MEDS ORDERED: MORPHINE SULFATE 4 MG/ML SYRINGE IV PRN (22:43)
[2020-09-22] MEDS ORDERED: ACETAMINOPHEN TAB 325 MG TAB PO PRN (22:43)
[2020-09-22] MEDS ORDERED: ALBUTEROL NEBULIZED 1.25 MG/3 ML INHALATION PRN (22:44)
[2020-09-23] MEDS: ALBUTEROL NEBULIZED 2.5 MG/3 ML INHALATION PRN ×2 (07:06→15:33)
[2020-09-23 13:27] VITALS: BMI 30.9
[2020-09-23] MEDS ORDERED: ALBUTEROL NEBULIZED 2.5 MG/3 ML INHALATION PRN (13:37)
[2020-09-23] MEDS ORDERED: ETODOLAC 400 MG TAB PO PRN (13:37)
[2020-09-23] MEDS ORDERED: NITROGLYCERIN SL TABS 0.4 MG TAB SUBLINGUAL PRN (13:38)
--- NOTE | 2020-09-23 14:26 | P.HPIM ---
History of Present Illness 49-year-old female with history of COPD, CVA with right sided weakness, presenting to the emergency department via EMS with complaints of shortness of breath and increased weakness to her right side. Patient was recently admitted for the same complaint and was discharged 4 days ago. Patient states that they wanted to send her to rehab however she refused at that time. Patient is now saying that she thinks she needs to go to rehab. Patient does live by herself, she does not feel like she can take care of herself at home and is having a hard time getting around her house. She denies any chest pains. She is currently on 2 L of oxygen, she states she was supposed to be sent home with a breathing treatment machine but she has not yet received it. She denies any fever, chills, no nausea or vomiting. She does have some mild low back pain, she denies any abdominal pain, dysuria. She believes that her right-sided weakness seems to be getting a little bit worse. Patient had a full workup including a brain MRI, carotid scans this past week all were stable. Recently tested negative for Covid. Patient has no other complaints at this time. Upon arrival to the ER, her vitals are stable. Patient is presently saturating well not requiring any oxygen. Patient was lightheaded as today probably secondary to hypovolemia patient does take Lasix doesn't have any history of congestive heart failure patient had low blood pressures systolic going into 90s. Physical and occupational did reveal a valid the patient patient will be placed in subacute rehabilitation tomorrow aphasia and right-sided weakness is chronic from her previous stroke Review of Systems REVIEW OF SYSTEMS: CONSTITUTIONAL: No fever, no malaise, no fatigue. HEENT: No recent visual problems or hearing problems. Denied any sore throat. CARDIOVASCULAR: No chest pain, orthopnea, PND, no palpitations, no syncope. PULMONARY: No shortness of breath, no cough, no hemoptysis. GASTROINTESTINAL: No diarrhea, no nausea, no vomiting, no abdominal pain. NEUROLOGICAL: No headaches, no weakness, no numbness. HEMATOLOGICAL: Denies any bleeding or petechiae. GENITOURINARY: Denies any burning micturition, frequency, or urgency. MUSCULOSKELETAL/RHEUMATOLOGICAL: Denies any joint pain, swelling, or any muscle pain. ENDOCRINE: Denies any polyuria or polydipsia. The rest of the 14-point review of systems is negative. 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 History of Any Multi-Drug Resistant Organisms: None Reported Past Surgical History: Section, Tonsillectomy, Tubal Ligation Additional Past Surgical History / Comment(s): Past trach/peg tube, pt thinks some kind of brain/skull surgery while comatose in 2010 at [facility]. Past Anesthesia/Blood Transfusion Reactions: No Reported Reaction Past Psychological History: Anxiety Smoking Status: Current every day smoker Past Alcohol Use History: None Reported Past Drug Use History: None Reported - Past Family History Mother Family Medical History: Cancer Additional Family Medical History / Comment(s): Mother of cancer, pt does not know what type. Father Family Medical History: Cancer Additional Family Medical History / Comment(s): Father is alive and has had 3 different types of cancer but survived them all. Medications and Allergies Home Medications Medication Instructions Recorded Confirmed Type Dextroamphetamine/Amphetamine 20 mg PO DAILY 10/17/17 09/22/20 History [Adderall] levETIRAcetam [Keppra] 500 mg PO DAILY 10/17/17 09/22/20 History ARIPiprazole [Abilify] 5 mg PO HS 02/29/20 09/22/20 History Diclofenac Sodium [Voltaren] 75 mg PO BID 05/31/20 09/22/20 History Aspirin EC [Ecotrin Low Dose] 81 mg PO DAILY 07/16/20 09/22/20 History Umeclidinium Brm/Vilanterol Tr 1 puff INHALATION RT-DAILY 07/16/20 09/22/20 History [Anoro Ellipta 62.5-25 Mcg INH] Vitamin B Complex 1 cap PO DAILY 07/16/20 09/22/20 History Atorvastatin [Lipitor] 40 mg PO HS 90 Days #90 tab 09/01/20 09/22/20 Rx Nitroglycerin Sl Tabs [Nitrostat] 0.4 mg SUBLINGUAL Q5M PRN 90 Days 09/01/20 Rx #90 tab Furosemide [Lasix] 20 mg PO DAILY 09/13/20 09/22/20 History Nystatin 100,000 Unit/gm Powd 1 applic TOPICAL BID 09/13/20 09/22/20 History [Mycostatin Powder] Potassium Chloride ER [K-Dur 10] 10 meq PO DAILY 09/13/20 09/22/20 History Albuterol Nebulized [Ventolin 2.5 mg INHALATION RT-Q4H PRN ml 09/17/20 09/22/20 Rx Nebulized] Allergies Allergy/AdvReac Type Severity Reaction Status Date / Time cat dander Allergy Rash/Hives Verified 09/22/20 23:19 tomato Allergy Rash/Hives Verified 09/22/20 23:19 Physical Exam Vitals: Vital Signs Temp Pulse Pulse Resp BP BP Pulse Ox 09/23/20 11:20 64 09/23/20 11:06 64 09/23/20 07:16 68 09/23/20 07:06 68 09/23/20 03:30 60 97/52 95 09/22/20 23:51 98.1 F 64 116/75 100 09/22/20 22:51 59 L 16 102/62 97 09/22/20 21:20 60 16 108/65 97 09/22/20 20:00 16 09/22/20 19:11 98.6 F 68 16 116/70 99 Intake and Output 09/22/20 09/23/20 09/23/20 22:59 06:59 14:59 Intake Total 0 Output Total 0 Balance 0 Intake: Oral 0 Output: Urine 0 Other: Voiding Method Toilet Bedside Commode # Voids 1 Weight 100.698 kg 100.698 kg 100.698 kg PHYSICAL EXAMINATION: GENERAL: The patient is alert and oriented x3, not in any acute distress. Well developed, well nourished. HEENT: Pupils are round and equally reacting to light. EOMI. No scleral icterus. No conjunctival pallor. Normocephalic, atraumatic. No pharyngeal erythema. No thyromegaly. CARDIOVASCULAR: S1 and S2 present. No murmurs, rubs, or gallops. PULMONARY: Chest is clear to auscultation, no wheezing or crackles. ABDOMEN: Soft, nontender, nondistended, normoactive bowel sounds. No palpable organomegaly. MUSCULOSKELETAL: No joint swelling or deformity. EXTREMITIES: No cyanosis, clubbing, or pedal edema. NEUROLOGICAL: Gross neurological examination did not reveal any focal deficits. SKIN: No rashes. Results CBC & Chem 7: 09/22/20 19:38 09/22/20 19:38 Labs: Abnormal Lab Results - Last 24 Hours (Table) 09/22/20 09/22/20 Range/Units 19:38 21:00 Chloride 108 H (98-107) mmol/L Glucose 103 H (74-99) mg/dL Urine Bilirubin 1+ H (Negative) Ur Leukocyte Esterase Small H (Negative) Urine WBC 8 H (0-5) /hpf Ur Squamous Epith Cells 5 H (0-4) /hpf Calcium Oxalate Crystal Occasional H (None) /hpf Amorphous Sediment Rare H (None) /hpf Urine Bacteria Rare H (None) /hpf Hyaline Casts 3 H (0-2) /lpf Urine Mucus Occasional H (None) /hpf Thrombosis Risk Factor Assmnt - Choose All That Apply Each Factor Represents 1 point: Age 41-60 years, Obesity (BMI >25) Thrombosis Risk Factor Assessment Total Risk Factor Score: 2 Thrombosis Risk Factor Assessment Level: Low Risk Assessment and Plan Plan: -Lightheadedness: Probably mild hypovolemia from Lasix will be held patient doesn't have any evidence of congestive heart failure. blood pressure was 90 systolic -Generalized deconditioning: Patient will need to go to a subacute rehabilitation -COPD without any acute exacerbation -history of CVA with residual weakness. COPD with mild acute exacerbation which resolved. - seizure disorder for which patient is on Keppra which will be continued -DVT prophylaxis: The patient was restarted on Lovenox
[2020-09-23] MEDS: levETIRAcetam 500 MG TAB PO SCH (15:29)
[2020-09-23] MEDS: NYSTATIN 100,000 UNIT/GM POWD 15 GM TOPICAL SCH (20:23)
[2020-09-23] MEDS ORDERED: ARIPiprazole 5 MG TAB PO SCH (21:00)
[2020-09-23] MEDS ORDERED: ATORVASTATIN 40 MG TAB PO SCH (21:00)
[2020-09-24] MEDS: IPRATROPIUM 0.5 MG/2.5 ML NEBU INHALATION SCH ×3 (07:38→15:24)
[2020-09-24] MEDS ORDERED: FORMOTEROL FUMARATE 20 MCG/2 ML NEBU INHALATION SCH (08:00)
[2020-09-24 08:47] VITALS: RESP 16
[2020-09-24] MEDS: levETIRAcetam 500 MG TAB PO SCH (08:49)
[2020-09-24] MEDS ORDERED: ENOXAPARIN 40 MG/0.4 ML SYRINGE SQ SCH (09:00)
[2020-09-24] MEDS ORDERED: ASPIRIN 81 MG PO SCH (09:00)
[2020-09-24] MEDS ORDERED: NON FORMULARY DRUG (Dextroamphetamine/Amphetamine [Adderall] 20 MG Tablet) PO SCH (09:00)
[2020-09-24] MEDS ORDERED: NON FORMULARY DRUG (Vitamin B Complex [Vitamin B Complex] 1 EACH Capsule) PO SCH (09:00)
--- NOTE | 2020-09-24 11:42 | P.DS ---
Providers Date of admission: 09/24/20 07:45 Attending physician: Chris Bocanegra Primary care physician: Stated None Hospital Course: 49-year-old female with history of COPD, CVA with right sided weakness, presenting to the emergency department via EMS with complaints of shortness of breath and increased weakness to her right side. Patient was recently admitted for the same complaint and was discharged 4 days ago. Patient states that they wanted to send her to rehab however she refused at that time. Patient is now saying that she thinks she needs to go to rehab. Patient does live by herself, she does not feel like she can take care of herself at home and is having a hard time getting around her house. She denies any chest pains. She is currently on 2 L of oxygen, she states she was supposed to be sent home with a breathing treatment machine but she has not yet received it. She denies any fever, chills, no nausea or vomiting. She does have some mild low back pain, she denies any abdominal pain, dysuria. She believes that her right-sided weakness seems to be getting a little bit worse. Patient had a full workup including a brain MRI, carotid scans this past week all were stable. Recently tested negative for Covid. Patient has no other complaints at this time. Upon arrival to the ER, her vitals are stable. Patient is presently saturating well not requiring any oxygen. Patient was lightheaded as today probably secondary to hypovolemia patient does take Lasix doesn't have any history of congestive heart failure patient had low blood pressures systolic going into 90s. Physical and occupational did reveal a valid the patient patient will be placed in subacute rehabilitation tomorrow aphasia and right-sided weakness is chronic from her previous stroke. 09/24/2020 Patient is saturating well. Her dizziness is better patient will be discharged to subacute rehabitation today. PHYSICAL EXAMINATION: GENERAL: The patient is alert and oriented x3, not in any acute distress. Well developed, well nourished. HEENT: Pupils are round and equally reacting to light. EOMI. No scleral icterus. No conjunctival pallor. Normocephalic, atraumatic. No pharyngeal erythema. No thyromegaly. CARDIOVASCULAR: S1 and S2 present. No murmurs, rubs, or gallops. PULMONARY: Chest is clear to auscultation, no wheezing or crackles. ABDOMEN: Soft, nontender, nondistended, normoactive bowel sounds. No palpable organomegaly. MUSCULOSKELETAL: No joint swelling or deformity. EXTREMITIES: No cyanosis, clubbing, or pedal edema. NEUROLOGICAL: Gross neurological examination did not reveal any focal deficits. SKIN: No rashes. Assessment and Plan Plan: -Lightheadedness: Probably mild hypovolemia from Lasix will be held patient doesn't have any evidence of congestive heart failure. Patient blood pressure was 90 systolic. Patient blood pressures improved Lasix will be discontinued. Patient is doing well can be discharged today -Generalized deconditioning: Patient will need to go to a subacute rehabilitation -COPD without any acute exacerbation -history of CVA with residual weakness. COPD with mild acute exacerbation which resolved. - seizure disorder for which patient is on Keppra which will be continued Patient Condition at Discharge: Stable Plan - Discharge Summary New Discharge Prescriptions: Continue Dextroamphetamine/Amphetamine [Adderall] 20 mg PO DAILY levETIRAcetam [Keppra] 500 mg PO DAILY ARIPiprazole [Abilify] 5 mg PO HS Diclofenac Sodium [Voltaren] 75 mg PO BID Aspirin EC [Ecotrin Low Dose] 81 mg PO DAILY Umeclidinium Brm/Vilanterol Tr [Anoro Ellipta 62.5-25 Mcg INH] 1 puff INHALATION RT-DAILY Vitamin B Complex 1 cap PO DAILY Atorvastatin [Lipitor] 40 mg PO HS 90 Days #90 tab Nitroglycerin Sl Tabs [Nitrostat] 0.4 mg SUBLINGUAL Q5M PRN 90 Days #90 tab PRN Reason: Chest Pain Nystatin 100,000 Unit/gm Powd [Mycostatin Powder] 1 applic TOPICAL BID Albuterol Nebulized [Ventolin Nebulized] 2.5 mg INHALATION RT-Q4H PRN ml PRN Reason: Shortness Of Breath Discontinued Potassium Chloride ER [K-Dur 10] 10 meq PO DAILY Furosemide [Lasix] 20 mg PO DAILY Discharge Medication List Dextroamphetamine/Amphetamine [Adderall] 20 mg PO DAILY 10/17/17 [History] levETIRAcetam [Keppra] 500 mg PO DAILY 10/17/17 [History] ARIPiprazole [Abilify] 5 mg PO HS 02/29/20 [History] Diclofenac Sodium [Voltaren] 75 mg PO BID 05/31/20 [History] Aspirin EC [Ecotrin Low Dose] 81 mg PO DAILY 07/16/20 [History] Umeclidinium Brm/Vilanterol Tr [Anoro Ellipta 62.5-25 Mcg INH] 1 puff INHALATION RT-DAILY 07/16/20 [History] Vitamin B Complex 1 cap PO DAILY 07/16/20 [History] Atorvastatin [Lipitor] 40 mg PO HS 90 Days #90 tab 09/01/20 [Rx] Nitroglycerin Sl Tabs [Nitrostat] 0.4 mg SUBLINGUAL Q5M PRN 90 Days #90 tab 09/01/20 [Rx] Nystatin 100,000 Unit/gm Powd [Mycostatin Powder] 1 applic TOPICAL BID 09/13/20 [History] Albuterol Nebulized [Ventolin Nebulized] 2.5 mg INHALATION RT-Q4H PRN ml 09/17/20 [Rx] Follow up Appointment(s)/Referral(s): Chris Bocanegra MD [STAFF PHYSICIAN] - 1-2 Days
[2020-09-24] MEDS: NYSTATIN 100,000 UNIT/GM POWD 15 GM TOPICAL SCH ×2 (12:54→16:50)
[2020-09-24] MEDS: ALBUTEROL NEBULIZED 2.5 MG/3 ML INHALATION PRN (15:24)
[2020-09-24 17:35] VITALS: BP 99/65; PULSE 76; TEMP 97.5
== END 2020-09-24 17:56 | DRG 641 ==
LOC: EC 19:06 → 1SOBS 22:37 → OBSVTOIN 09-24 07:45
PROVIDERS: ADMIT Family Medicine; ATTEND Family Medicine
DX: E86.1 Hypovolemia (principal); I69.351 Hemiplegia and hemiparesis following cerebral infarction affecting right dominant side; J44.1 Chronic obstructive pulmonary disease with (acute) exacerbation; F41.9 Anxiety disorder, unspecified; F17.200 Nicotine dependence, unspecified, uncomplicated; G40.909 Epilepsy, unspecified, not intractable, without status epilepticus; H91.91 Unspecified hearing loss, right ear; H54.7 Unspecified visual loss; Z79.82 Long term (current) use of aspirin; Z79.899 Other long term (current) drug therapy; Z88.8 Allergy status to other drugs, medicaments and biological substances; Z91.09 Other allergy status, other than to drugs and biological substances; Z80.9 Family history of malignant neoplasm, unspecified; Z98.891 History of uterine scar from previous surgery; Z90.89 Acquired absence of other organs; Z98.51 Tubal ligation status; Z98.890 Other specified postprocedural states
CPT/HCPCS: 36415; 71046; 80053; 81001; 82550; 83605; 83735; 83880; 84484; 85025; 85610; 85730; 93005; 94640; 94760; 96374; 99285

== ENCOUNTER 2020-10-13 08:02 | Observation (INO) | payer MEDICARE, OTHER ==
[2020-10-13] MEDS ORDERED: SODIUM CHLORIDE 0.9% 1,000 ML IV STA (08:15)
[2020-10-13] MEDS ORDERED: MECLIZINE 12.5 MG TAB PO STA (08:16)
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
[2020-10-13 09:03] LABS: Appearance,Urine Cloudy (Clear); Bacteria,Urine Many /hpf; Bilirubin,Urine Negative (Negative); Blood,Urine Negative (Negative); Color,Urine Yellow; Glucose,Urine (UA) Negative (Negative); Ketones,Urine Negative (Negative); Leukocyte Esterase,Urine Moderate (Negative); Mucus,Urine Many /hpf; Nitrite,Urine Negative (Negative); PH, Urine 5.5 (5.0-8.0); Protein,Urine Trace (Negative); RBC,Urine 2 /hpf (0-5); Specific Gravity,Urine 1.025 (1.001-1.035); Squamous Epithelial Cell,Urine 14 /hpf (0-4); WBC,Urine 6 /hpf (0-5)
[2020-10-13 09:11] LABS: ALT 29 U/L (4-34); AST 23 U/L (14-36); African American GFR (CKD) >90 (>60 ml/min/1.73 sqM); Albumin 3.5 g/dL (3.5-5.0); Alkaline Phosphatase 65 U/L (38-126); Anion Gap 5 mmol/L; Blood Urea Nitrogen 14 mg/dL (7-17); Calcium 8.3 mg/dL (8.4-10.2); Carbon Dioxide 24 mmol/L (22-30); Chloride 115 mmol/L (98-107); Glucose 88 mg/dL (74-99); Non-African American GFR(CKD) >90 (>60 ml/min/1.73 sqM); Potassium 4.3 mmol/L (3.5-5.1); Sodium 144 mmol/L (137-145); Total Bilirubin 0.5 mg/dL (0.2-1.3); Total Protein 6.3 g/dL (6.3-8.2)
[2020-10-13] MEDS ORDERED: METOCLOPRAMIDE 5 MG/ML 2 ML VIAL IVP STA (09:46)
[2020-10-13] MEDS ORDERED: SCOPOLAMINE 1.5MG/72HR PATCH TRANSDERM STA (09:56)
[2020-10-13] MEDS ORDERED: LORazepam 2 MG/ML INJ IV PRN (11:01)
[2020-10-13] MEDS ORDERED: NALOXONE 0.4 MG/ML 1 ML VIAL IV PRN (11:01)
[2020-10-13 11:32] LABS: Basophils # (A) 0.1 k/uL (0-0.2); Basophils % (A) 1 %; Eosinophils # (A) 0.2 k/uL (0-0.7); Eosinophils % (A) 2 %; HGB 12.1 gm/dL (11.4-16.0); Lymphocytes # (A) 2.3 k/uL (1.0-4.8); Lymphocytes % (A) 26 %; MCH 31.8 pg (25.0-35.0); MCHC 34.6 g/dL (31.0-37.0); MCV 91.9 fL (80.0-100.0); Mean Platelet Volume 7.7; Monocytes # (A) 0.3 k/uL (0-1.0); Monocytes % (A) 4 %; Neutrophils # (A) 5.8 k/uL (1.3-7.7); Neutrophils % (A) 66 %; Platelet Count 210 k/uL (150-450); RBC 3.81 m/uL (3.80-5.40); RDW 13.5 % (11.5-15.5); WBC 8.8 k/uL (3.8-10.6)
[2020-10-13] MEDS: SODIUM CHLORIDE 0.9% 1,000 ML IV SCH (11:36)
--- NOTE | 2020-10-13 11:47 | CT ---
EXAMINATION TYPE: CT brain wo con DATE OF EXAM: 10/13/2020 COMPARISON: CT brain 09/13/2020 HISTORY: Dizziness CT DLP: 1099.4 mGycm. Automated Exposure Control for Dose Reduction was Utilized. TECHNIQUE: CT scan of the head is performed without contrast. FINDINGS: There is no acute intracranial hemorrhage, mass effect, or midline shift identified. The abnormal low attenuation in the right frontal lobe is again noted, left temporal lobe chronic infarct is also present. The ventricles and sulci are within normal limits in size. The globes are intact a nd the visualized sinuses are arco for minimal inflammatory change in the right maxillary sinus. IMPRESSION: No acute intracranial hemorrhage, mass effect, or midline shift is seen.
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
[2020-10-13] MEDS: ATORVASTATIN 20 MG TAB PO SCH (22:20)
[2020-10-13] MEDS: ARIPiprazole 5 MG TAB PO SCH (22:21)
[2020-10-14] MEDS: NON FORMULARY DRUG (Vitamin B Complex [Vitamin B Complex] 1 EACH Capsule) PO SCH (07:05)
[2020-10-14] MEDS: levETIRAcetam 500 MG TAB PO SCH (07:06)
[2020-10-14] MEDS: ASPIRIN 81 MG PO SCH (07:06)
[2020-10-14] MEDS: SODIUM CHLORIDE 0.9% 1,000 ML IV SCH (07:07)
[2020-10-14 12:48] LABS: Appearance,Urine Clear (Clear); Bilirubin,Urine Negative (Negative); Blood,Urine Negative (Negative); Color,Urine Light Yellow; Glucose,Urine (UA) Negative (Negative); Ketones,Urine Negative (Negative); Leukocyte Esterase,Urine Negative (Negative); Nitrite,Urine Negative (Negative); Protein,Urine Negative (Negative); Specific Gravity,Urine 1.006 (1.001-1.035); Urobilinogen,Urine <2.0 mg/dL (<2.0)
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
[2020-10-14] MEDS: ARIPiprazole 5 MG TAB PO SCH (21:23)
[2020-10-14] MEDS: ATORVASTATIN 20 MG TAB PO SCH (21:23)
[2020-10-15] MEDS: levETIRAcetam 500 MG TAB PO SCH (08:28)
[2020-10-15] MEDS: ASPIRIN 81 MG PO SCH (08:29)
[2020-10-15] MEDS: NON FORMULARY DRUG (Vitamin B Complex [Vitamin B Complex] 1 EACH Capsule) PO SCH (10:37)
[2020-10-15] MEDS: SODIUM CHLORIDE 0.9% 1,000 ML IV SCH (12:49)
--- NOTE | 2020-10-15 17:34 | PN ---
PROGRESS NOTE This patient is a 49-year-old white female whom Neurology is supposed to be seeing. She is up ambulating a little bit better. Possible urinary tract infection. She feels better with IV hydration. Her levetiracetam level is within the normal range at 11.9; normal is 3 to 60. Possible discharge home once cleared by Neurology. She knows she needs to go to a physical therapy place. Await further orders from Neurology. MMODL / IJN: [id number] /
[2020-10-15] MEDS: ARIPiprazole 5 MG TAB PO SCH (20:57)
[2020-10-15] MEDS: ATORVASTATIN 20 MG TAB PO SCH (20:57)
[2020-10-16] MEDS: levETIRAcetam 500 MG TAB PO SCH (07:39)
[2020-10-16] MEDS: ASPIRIN 81 MG PO SCH (07:39)
[2020-10-16] MEDS: NON FORMULARY DRUG (Vitamin B Complex [Vitamin B Complex] 1 EACH Capsule) PO SCH (07:43)
[2020-10-16 07:45] VITALS: BP 119/75; PULSE 65; RESP 17; TEMP 98.4
[2020-10-16] MEDS ORDERED: SCOPOLAMINE 1.5MG/72HR PATCH TRANSDERM SCH (08:00)
== END 2020-10-16 10:20 | disposition home or self-care (01) ==
LOC: EC 08:02 → 1SOBS 11:01 → 5NMEDONC 11:51
PROVIDERS: ADMIT Family Medicine; ATTEND Family Medicine
DX: R42 Dizziness and giddiness (principal); I69.351 Hemiplegia and hemiparesis following cerebral infarction affecting right dominant side; I69.312 Visuospatial deficit and spatial neglect following cerebral infarction; I69.398 Other sequelae of cerebral infarction; J44.9 Chronic obstructive pulmonary disease, unspecified; R41.3 Other amnesia; Z87.820 Personal history of traumatic brain injury; E03.9 Hypothyroidism, unspecified; F41.9 Anxiety disorder, unspecified; R79.89 Other specified abnormal findings of blood chemistry; F39 Unspecified mood [affective] disorder; F17.210 Nicotine dependence, cigarettes, uncomplicated; G40.909 Epilepsy, unspecified, not intractable, without status epilepticus; Z98.890 Other specified postprocedural states; Z90.89 Acquired absence of other organs; Z98.51 Tubal ligation status; Z98.891 History of uterine scar from previous surgery; Z80.9 Family history of malignant neoplasm, unspecified; Z79.82 Long term (current) use of aspirin; Z79.899 Other long term (current) drug therapy; Z91.018 Allergy to other foods; Z91.048 Other nonmedicinal substance allergy status
CPT/HCPCS: 96361 ×3; 96374; 99285; 36415; 93005; 97162; 80053; 80177; 85025; 81003; 81001; 70450; G0378 ×5; J2765

== ENCOUNTER 2020-12-03 19:59 | Emergency (ER) | payer MEDICARE, OTHER ==
[2020-12-03] MEDS ORDERED: ONDANSETRON 4 MG/2 ML VIAL IVP STA (20:31)
[2020-12-03] MEDS ORDERED: MECLIZINE 12.5 MG TAB PO STA (20:31)
[2020-12-03] MEDS ORDERED: DIAZEPAM 5 MG/ML 2 ML INJ IVP STA (20:31)
[2020-12-03] MEDS ORDERED: SODIUM CHLORIDE 0.9% 500 ML 500 ML IV STA (20:31)
--- NOTE | 2020-12-03 20:52 | ED ---
Dizziness HPI - General Chief Complaint: Dizziness Stated Complaint: dizziness/L knee pain Time Seen by Provider: 12/03/20 20:22 Source: patient, EMS, RN notes reviewed Mode of arrival: EMS Limitations: no limitations - History of Present Illness Initial Comments: 49-year-old female presents emergency Department chief complaint of dizziness. Patient had issues with recurrent dizziness. Patient states started today. Patient also states her left leg hurts states it felt like it gave out but states it just is sore now she has no weakness associated with it. Patient has right-sided weakness from prior CVA. Patient denies any current headache no b lurred vision no chest pain or shortness of breath. Patient states she is currently receiving physical therapy. - Related Data Home Medications Medication Instructions Recorded Confirmed levETIRAcetam [Keppra] 500 mg PO DAILY 10/17/17 10/13/20 ARIPiprazole [Abilify] 5 mg PO HS 02/29/20 10/13/20 Diclofenac Sodium [Voltaren] 75 mg PO BID 05/31/20 10/13/20 Aspirin EC [Ecotrin Low Dose] 81 mg PO DAILY 07/16/20 10/13/20 Umeclidinium Brm/Vilanterol Tr 1 puff INHALATION RT-HS 07/16/20 10/13/20 [Anoro Ellipta 62.5-25 Mcg INH] Vitamin B Complex 1 cap PO DAILY 07/16/20 10/13/20 Nystatin 100,000 Unit/gm Powd 1 applic TOPICAL BID 09/13/20 10/13/20 [Mycostatin Powder] Atorvastatin Calcium [Lipitor] 20 mg PO HS 10/13/20 10/13/20 Previous Rx's Medication Instructions Recorded Nitroglycerin Sl Tabs [Nitrostat] 0.4 mg SUBLINGUAL Q5M PRN 90 Days 09/01/20 #90 tab Albuterol Nebulized [Ventolin 2.5 mg INHALATION RT-Q4H PRN ml 09/17/20 Nebulized] Dextroamphetamine/Amphetamine 20 mg PO DAILY #3 tab 09/24/20 [Adderall] Scopolamine 1.5MG/72Hr Patch 1 patch TRANSDERM Q72H 30 Days #10 10/16/20 [TransDerm Scop] patch Allergies Allergy/AdvReac Type Severity Reaction Status Date / Time cat dander Allergy Rash/Hives Verified 10/13/20 11:15 tomato Allergy Rash/Hives Verified 10/13/20 11:15 Review of Systems ROS Statement: Those systems with pertinent positive or pertinent negative responses have been documented in the HPI. ROS Other: All systems not noted in ROS Statement are negative. 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 History of Any Multi-Drug Resistant Organisms: None Reported Past Surgical History: Section, Tonsillectomy, Tubal Ligation Additional Past Surgical History / Comment(s): Past trach/peg tube, pt thinks some kind of brain/skull surgery while comatose in 2010 at [facility]. Past Anesthesia/Blood Transfusion Reactions: No Reported Reaction Past Psychological History: Anxiety Smoking Status: Current every day smoker Past Alcohol Use History: None Reported Past Drug Use History: None Reported - Past Family History Mother Family Medical History: Cancer Additional Family Medical History / Comment(s): Mother of cancer, pt does not know what type. Father Family Medical History: Cancer Additional Family Medical History / Comment(s): Father is alive and has had 3 different types of cancer but survived them all. General Exam Limitations: no limitations General appearance: alert, in no apparent distress Head exam: Present: atraumatic, normocephalic, normal inspection Eye exam: Present: normal appearance, PERRL, EOMI. Absent: scleral icterus, conjunctival injection, periorbital swelling ENT exam: Present: normal exam, normal oropharynx, mucous membranes moist Neck exam: Present: normal inspection, full ROM. Absent: tenderness, meningismus, lymphadenopathy Respiratory exam: Present: normal lung sounds bilaterally. Absent: respiratory distress, wheezes, rales, rhonchi, stridor Cardiovascular Exam: Present: regular rate, normal rhythm, normal heart sounds. Absent: systolic murmur, diastolic murmur, rubs, gallop, clicks Extremities exam: Present: other (Right-sided weakness chronic, left leg tenderness, neurovascular intact equal pedal pulses equal radial pulses) Neurological exam: Present: alert, oriented X3, CN II-XII intact, reflexes normal. Absent: motor sensory deficit Skin exam: Present: warm, dry, intact, normal color. Absent: rash Course Vital Signs 12/03/20 12/03/20 20:03 21:54 Temperature 97.5 F L Pulse Rate 70 67 Respiratory 16 18 Rate Blood Pressure 123/77 107/63 O2 Sat by Pulse 98 98 Oximetry EKG Findings - EKG Comments: EKG Findings:: EKG performed at 20:34 normal sinus rhythm rate of 67 GA 118 QRS 84 QT/QTC 46 05/01/2029 Medical Decision Making - Medical Decision Making 49-year-old female presented for dizziness. This has been a recurrent chronic pain. Patient has full workup including EKG, labs and CT. Patient is not having acute findings. Patient states that she feels better after medications given emergency department. Patient will be discharged home in stable condition will follow-up with PCP. - Lab Data Result diagrams: 12/03/20 20:46 12/03/20 20:46 Lab Results 12/03/20 12/03/20 12/03/20 Range/Units 20:46 20:46 20:46 WBC 13.8 H (3.8-10.6) k/uL RBC 4.20 (3.80-5.40) m/uL Hgb 13.2 (11.4-16.0) gm/dL Hct 38.8 (34.0-46.0) % MCV 92.4 (80.0-100.0) fL MCH 31.4 (25.0-35.0) pg MCHC 34.0 (31.0-37.0) g/dL RDW 13.4 (11.5-15.5) % Plt Count 274 (150-450) k/uL MPV 7.6 Neutrophils % 65 % Lymphocytes % 27 % Monocytes % 5 % Eosinophils % 2 % Basophils % 0 % Neutrophils # 9.0 H (1.3-7.7) k/uL Lymphocytes # 3.7 (1.0-4.8) k/uL Monocytes # 0.7 (0-1.0) k/uL Eosinophils # 0.2 (0-0.7) k/uL Basophils # 0.1 (0-0.2) k/uL Sodium 138 (137-145) mmol/L Potassium 4.1 (3.5-5.1) mmol/L Chloride 105 (98-107) mmol/L Carbon Dioxide 26 (22-30) mmol/L Anion Gap 7 mmol/L BUN 22 H (7-17) mg/dL Creatinine 0.50 L (0.52-1.04) mg/dL Est GFR (CKD-EPI)AfAm >90 (>60 ml/min/1.73 sqM) Est GFR (CKD-EPI)NonAf >90 (>60 ml/min/1.73 sqM) Glucose 114 H (74-99) mg/dL Calcium 9.2 (8.4-10.2) mg/dL Magnesium 2.1 (1.6-2.3) mg/dL Total Bilirubin 0.2 (0.2-1.3) mg/dL AST 34 (14-36) U/L ALT 33 (4-34) U/L Alkaline Phosphatase 83 (38-126) U/L Troponin I <0.012 (0.000-0.034) ng/mL Total Protein 7.2 (6.3-8.2) g/dL Albumin 4.2 (3.5-5.0) g/dL Urine Color Urine Appearance (Clear) Urine pH (5.0-8.0) Ur Specific [place] (1.001-1.035) Urine Protein (Negative) Urine Glucose (UA) (Negative) Urine Ketones (Negative) Urine Blood (Negative) Urine Nitrite (Negative) Urine Bilirubin (Negative) Urine Urobilinogen (<2.0) mg/dL Ur Leukocyte Esterase (Negative) Urine RBC (0-5) /hpf Urine WBC (0-5) /hpf Ur Squamous Epith Cells (0-4) /hpf Urine Bacteria (None) /hpf Urine Mucus (None) /hpf 12/03/20 Range/Units 21:55 WBC (3.8-10.6) k/uL RBC (3.80-5.40) m/uL Hgb (11.4-16.0) gm/dL Hct (34.0-46.0) % MCV (80.0-100.0) fL MCH (25.0-35.0) pg MCHC (31.0-37.0) g/dL RDW (11.5-15.5) % Plt Count (150-450) k/uL MPV Neutrophils % % Lymphocytes % % Monocytes % % Eosinophils % % Basophils % % Neutrophils # (1.3-7.7) k/uL Lymphocytes # (1.0-4.8) k/uL Monocytes # (0-1.0) k/uL Eosinophils # (0-0.7) k/uL Basophils # (0-0.2) k/uL Sodium (137-145) mmol/L Potassium (3.5-5.1) mmol/L Chloride (98-107) mmol/L Carbon Dioxide (22-30) mmol/L Anion Gap mmol/L BUN (7-17) mg/dL Creatinine (0.52-1.04) mg/dL Est GFR (CKD-EPI)AfAm (>60 ml/min/1.73 sqM) Est GFR (CKD-EPI)NonAf (>60 ml/min/1.73 sqM) Glucose (74-99) mg/dL Calcium (8.4-10.2) mg/dL Magnesium (1.6-2.3) mg/dL Total Bilirubin (0.2-1.3) mg/dL AST (14-36) U/L ALT (4-34) U/L Alkaline Phosphatase (38-126) U/L Troponin I (0.000-0.034) ng/mL Total Protein (6.3-8.2) g/dL Albumin (3.5-5.0) g/dL Urine Color Yellow Urine Appearance Clear (Clear) Urine pH 6.5 (5.0-8.0) Ur Specific [place] 1.024 (1.001-1.035) Urine Protein Negative (Negative) Urine Glucose (UA) Negative (Negative) Urine Ketones Negative (Negative) Urine Blood Negative (Negative) Urine Nitrite Negative (Negative) Urine Bilirubin Negative (Negative) Urine Urobilinogen <2.0 (<2.0) mg/dL Ur Leukocyte Esterase Small H (Negative) Urine RBC 1 (0-5) /hpf Urine WBC 5 (0-5) /hpf Ur Squamous Epith Cells <1 (0-4) /hpf Urine Bacteria Rare H (None) /hpf Urine Mucus Rare H (None) /hpf Disposition Clinical Impression: Dizziness Disposition: HOME SELF-CARE Condition: Stable Instructions (If sedation given, give patient instructions): Dizziness (ED) Additional Instructions: Please return to the Emergency Department if symptoms worsen or any other concerns. Is patient prescribed a controlled substance at d/c from ED?: No Referrals: Chris Bocanegra MD [Primary Care Provider] - 1-2 days Time of Disposition: 22:46
[2020-12-03 20:54] LABS: Basophils # (A) 0.1 k/uL (0-0.2); Basophils % (A) 0 %; Eosinophils # (A) 0.2 k/uL (0-0.7); Eosinophils % (A) 2 %; HCT 38.8 % (34.0-46.0); HGB 13.2 gm/dL (11.4-16.0); Lymphocytes # (A) 3.7 k/uL (1.0-4.8); Lymphocytes % (A) 27 %; MCH 31.4 pg (25.0-35.0); MCV 92.4 fL (80.0-100.0); Mean Platelet Volume 7.6; Monocytes # (A) 0.7 k/uL (0-1.0); Monocytes % (A) 5 %; Neutrophils % (A) 65 %; Platelet Count 274 k/uL (150-450); RDW 13.4 % (11.5-15.5); WBC 13.8 k/uL (3.8-10.6)
[2020-12-03 20:57] VITALS: TEMP 97.5
[2020-12-03 21:10] LABS: ALT 33 U/L (4-34); AST 34 U/L (14-36); African American GFR (CKD) >90 (>60 ml/min/1.73 sqM); Albumin 4.2 g/dL (3.5-5.0); Alkaline Phosphatase 83 U/L (38-126); Anion Gap 7 mmol/L; Blood Urea Nitrogen 22 mg/dL (7-17); Calcium 9.2 mg/dL (8.4-10.2); Carbon Dioxide 26 mmol/L (22-30); Chloride 105 mmol/L (98-107); Glucose 114 mg/dL (74-99); Magnesium 2.1 mg/dL (1.6-2.3); Non-African American GFR(CKD) >90 (>60 ml/min/1.73 sqM); Potassium 4.1 mmol/L (3.5-5.1); Sodium 138 mmol/L (137-145); Total Bilirubin 0.2 mg/dL (0.2-1.3); Total Protein 7.2 g/dL (6.3-8.2)
--- NOTE | 2020-12-03 21:20 | CT ---
EXAMINATION TYPE: CT brain wo con DATE OF EXAM: 12/03/2020 COMPARISON: 10/13/2020 HISTORY: headache and dizziness CT DLP: 1192.4 mGycm. Automated Exposure Control for Dose Reduction was Utilized. TECHNIQUE: CT scan of the head is performed without contrast. FINDINGS: There is no acute intracranial hemorrhage, mass effect, or midline shift identified. The abnormal low attenuation in the right frontal lobe is again noted, left temporal lobe chronic infarct is also pre sent. The ventricles and sulci are within normal limits in size. IMPRESSION: No acute intracranial hemorrhage, mass effect, or midline shift is seen.
--- NOTE | 2020-12-03 21:24 | XR ---
Study: History of the tibia and fibula. Date of service 12/03/2020. HISTORY: Pain. COMPARISON: None. TECHNIQUE: 2 views of the tibia and fibula were obtained. FINDINGS: No evidence of fracture or dislocation of the tibia and fibula the left. No lytic or blastic process is appreciated. Soft tissues about the left tibia and fibula are within normal limits. IMPRESSION: No acute fracture or subluxation.
[2020-12-03 22:09] LABS: Appearance,Urine Clear (Clear); Bacteria,Urine Rare /hpf; Bilirubin,Urine Negative (Negative); Blood,Urine Negative (Negative); Color,Urine Yellow; Glucose,Urine (UA) Negative (Negative); Ketones,Urine Negative (Negative); Leukocyte Esterase,Urine Small (Negative); Mucus,Urine Rare /hpf; Nitrite,Urine Negative (Negative); PH, Urine 6.5 (5.0-8.0); Protein,Urine Negative (Negative); RBC,Urine 1 /hpf (0-5); Specific Gravity,Urine 1.024 (1.001-1.035); Squamous Epithelial Cell,Urine <1 /hpf (0-4); Urobilinogen,Urine <2.0 mg/dL (<2.0); WBC,Urine 5 /hpf (0-5)
[2020-12-03] MEDS ORDERED: KETOROLAC 15 MG/ML 1 ML VIAL IVP STA (22:51)
[2020-12-03 23:12] VITALS: BP 122/75; PULSE 71; RESP 16
== END 2020-12-03 23:00 | disposition home or self-care (01) ==
LOC: EC 19:59
DX: R42 Dizziness and giddiness (principal); J44.9 Chronic obstructive pulmonary disease, unspecified; F41.9 Anxiety disorder, unspecified; F17.200 Nicotine dependence, unspecified, uncomplicated; Z86.73 Personal history of transient ischemic attack (TIA), and cerebral infarction without residual deficits; Z90.09 Acquired absence of other part of head and neck; Z98.51 Tubal ligation status; Z79.82 Long term (current) use of aspirin
CPT/HCPCS: 36415; 93005; 80053; 83735; 84484; 85025; 81001; 73590; 70450; 99285; 96374; 96375; J3360; J2405; J1885

== ENCOUNTER 2020-12-04 07:51 | Inpatient (IN) | payer MEDICARE, OTHER ==
[2020-12-04] MEDS ORDERED: SODIUM CHLORIDE 0.9% 1,000 ML IV STA (08:20)
[2020-12-04] MEDS ORDERED: ONDANSETRON 4 MG/2 ML VIAL IVP STA (08:20)
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
[2020-12-04 08:55] LABS: Basophils # (A) 0.1 k/uL (0-0.2); Basophils % (A) 1 %; Eosinophils # (A) 0.3 k/uL (0-0.7); Eosinophils % (A) 2 %; HCT 39.5 % (34.0-46.0); HGB 13.1 gm/dL (11.4-16.0); Lymphocytes # (A) 3.3 k/uL (1.0-4.8); Lymphocytes % (A) 31 %; MCH 31.4 pg (25.0-35.0); MCHC 33.3 g/dL (31.0-37.0); MCV 94.2 fL (80.0-100.0); Monocytes # (A) 0.4 k/uL (0-1.0); Monocytes % (A) 4 %; Neutrophils # (A) 6.6 k/uL (1.3-7.7); Neutrophils % (A) 62 %; Platelet Count 158 k/uL (150-450); RBC 4.19 m/uL (3.80-5.40); RDW 13.5 % (11.5-15.5); WBC 10.7 k/uL (3.8-10.6)
[2020-12-04 09:03] LABS: African American GFR (CKD) >90 (>60 ml/min/1.73 sqM); Alcohol <10 mg/dL; Anion Gap 11 mmol/L; Blood Urea Nitrogen 22 mg/dL (7-17); Calcium 9.7 mg/dL (8.4-10.2); Carbon Dioxide 25 mmol/L (22-30); Chloride 106 mmol/L (98-107); Glucose 110 mg/dL (74-99); Magnesium 2.2 mg/dL (1.6-2.3); Non-African American GFR(CKD) >90 (>60 ml/min/1.73 sqM); Potassium 4.4 mmol/L (3.5-5.1); Sodium 142 mmol/L (137-145)
[2020-12-04 09:11] LABS: INR 0.9 (<1.2); Prothrombin Time 9.9 sec (9.0-12.0)
[2020-12-04 09:14] LABS: Partial Thromboplastin Time 19.3 sec (22.0-30.0)
[2020-12-04] MEDS ORDERED: NALOXONE 0.4 MG/ML 1 ML VIAL IV PRN (09:39)
[2020-12-04 09:51] LABS: Appearance,Urine Cloudy (Clear); Bacteria,Urine Few /hpf; Bilirubin,Urine Negative (Negative); Blood,Urine Negative (Negative); Color,Urine Yellow; Glucose,Urine (UA) Negative (Negative); Ketones,Urine Negative (Negative); Leukocyte Esterase,Urine Small (Negative); Mucus,Urine Occasional /hpf; Nitrite,Urine Negative (Negative); Protein,Urine Trace (Negative); RBC,Urine 6 /hpf (0-5); Squamous Epithelial Cell,Urine 4 /hpf (0-4); WBC,Urine 11 /hpf (0-5)
[2020-12-04 09:56] LABS: Amphetamine Screen,Urine Detected (NotDetected); Barbiturate Screen,Urine Not Detected (NotDetected); Benzodiazepines Screen,Urine Detected (NotDetected); Cocaine Screen,Urine Not Detected (NotDetected); Methadone Screen, Urine Not Detected (NotDetected); Opiate Screen,Urine Not Detected (NotDetected); Oxycodone Screen, Urine Not Detected (NotDetected); Phencyclidine Screen,Urine Not Detected (NotDetected); Tricyclic Antidepressant,Urine Not Detected (NotDetected); Urn Cannabinoid Scrn Not Detected (NotDetected)
--- NOTE | 2020-12-04 13:15 | P.CN ---
Psychiatric Consult - . Consult date: 12/04/20 Consult:: IDENTIFYING DATA: This patient is a , on SSDI, 49-year-old female with a significant history of head trauma and CVA who presented to the emergency Department for dizziness. REASON FOR CONSULT: Hallucinations HISTORY OF PRESENT ILLNESS: The patient presented to the hospital on 12/03/2020 with a chief complaint of dizziness and pain. She was discharged from the emergency department and notified EMS to take her back to the emergency department due to no alleviation of her symptoms. The patient reported that the dizziness has been going on for one week. Psychiatry has been consulted for evaluation of hallucinations. There has been concern that the patient is delirious. The patient lives alone and is currently complaining of multiple aunts and her home. He states that they have been all over her apartment and that she is trying her best to get rid of them. In regards to hallucinations or psychosis, the patient is not reporting any auditory or visual hallucinations. She is not reporting any paranoia or delusions. She is currently not reporting any significant symptoms of depression. She denies any hopelessness, helplessness, or suicidal or homicidal ideation, intention, and/or plan. The patient currently lives alone and has some right-sided deficits secondary to a CVA she experienced in the past. When examined, the patient is currently alert and oriented in all spheres. She is also able to identify recent events and is able to verbalize the name of the current president. She is also able to note her medications and what she has been treated for. The patient's [facility] notes were reviewed by this provider. The patient is currently open with [facility] through Dr. Raygoza. She was last seen on 10/25/2020 and is currently in treatment for depression. The only psychotropic medication the patient is currently taking his Abilify 5 mg at bedtime. The patient is also prescribed Adderall to her outpatient primary care provider. Review of the [facility] notes reveals no significant concern for psychosis. The patient has been following with [facility] regularly and is scheduled for outpatient psychiatric follow- up on 12/27/2020. She is also scheduled to see case management on 12/06/2020. It should be noted that the patient has also expressed her dissatisfaction with her current housing situation to [facility]. PAST PSYCHIATRIC HISTORY: Patient has a a history of depression. The patient is currently on a regimen of Abilify and Adderall. The patient has had 4 prior inpatient psychiatric admissions. She was admitted to 3 [facility] in 2011, 2012, and twice in 2013. She is currently open with [facility]. Patient denies any history of suicide attempts in the past. 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 History of Any Multi-Drug Resistant Organisms: None Reported Past Surgical History: Section, Tonsillectomy, Tubal Ligation Additional Past Surgical History / Comment(s): Past trach/peg tube, pt thinks some kind of brain/skull surgery while comatose in 2010 at [facility]. ALLERGIES: Cat dander, tomato CHEMICAL DEPENDENCY HISTORY: The patient reports that she smokes 2 cigarettes per day. She denies any alcohol, marijuana, or illicit drug use. She denies any prior rehabilitation for substance use disorder. FAMILY PSYCHIATRIC/SUBSTANCE USE HISTORY: The patient does report that a maternal uncle committed suicide. She also reports that her committed suicide. SOCIAL HISTORY: Patient was born and raised in [place]. She reports a 12th grade education. Prior to her injury in 2010, the patient worked for the [place] [employer]. She is currently receiving SSDI. She has 2 adult daughters ages 25 and 27. She reports that she also has grandchildren. She currently lives alone in [place]. MENTAL STATUS EXAM: General Appearance: Patient appears to be stated age is alert, pleasant, and cooperative. Patient appears to have fair hygiene and grooming wearing hospital gown with fair eye contact. Obese body habitus. Behavior: Patient is calmly lying in bed without any agitated behavior. The patient does appear to be somewhat malaised. Speech: Patient's speech is fluent and nonpressured. Normal rate, tone, volume and fluency. Mood/Affect: Patient reports their mood is "feeling sick", affect is congruent and malaised but with appropriate range. Suicidality/Homicidality: Patient denies having any suicidal or homicidal ideation intent or plan. Perceptions: Patient denies any visual hallucinations and denies any auditory hallucinations Though content/process: There is no evidence of any delusional thought content and thought process is linear and goal-directed. Memory and concentration: AOX3, grossly intact for the purposes of this session. Can spell "WORLD" backwards Judgment and insight: Good IMPRESSIONS: -Major depressive disorder The patient does not appear to be delirious or psychotic at this time. She is alert and oriented in all spheres and displays good concentration and is aware of her surroundings. She currently follows up regularly with [facility] who also note no significant history of psychosis. As for the issue of ants, the patient has consistently express concern about her current housing situation. This has also been noted by [facility]. -Dizziness -Altered mental status, resolving Patient does not appear to be altered at this time. Patient is currently prescribed multiple medications on her home medication list which may contribute to delirium including methylprednisolone, Adderall, and Keppra. PLAN: -At this time patient DOES NOT meet criteria for inpatient psychiatric admission. -Delirium precautions recommended with patient including - avoiding use of narcotics and [employer] sedatives, limit anticholinergic medications when possible, frequent re-orientation, minimize use of restraints, open window shades during the day and close them at night -TSH, B12, and folate are ordered. -Would recommend the following medication changes/additions: Continue Abilify 5 mg at bedtime for mood May continue Adderall in the outpatient setting -Psychiatry will sign off at this point, please contact with any questions. -Recommend outpatient follow-up. Patient has case management follow-up with [facility] on 12/06/2020. She is also scheduled for medication review with Dr. Raygoza at [facility] on 12/27/2020. 12/04/20 12:55 12/04/20 13:14
[2020-12-04] MEDS: ACETAMINOPHEN TAB 325 MG TAB PO PRN (13:49)
[2020-12-04] MEDS ORDERED: ALBUTEROL NEBULIZED 2.5 MG/3 ML INHALATION PRN (16:59)
--- NOTE | 2020-12-04 19:00 | HP ---
HISTORY AND PHYSICAL This patient is a 49-year-old white female who has significant history of a prior stroke and head trauma. She comes in for repeat multiple admissions and recurrence of dizziness and weakness. She was supposed to get a lumbar epidural as an outpatient. She never did get this. Dizziness was worse over the past week. Psych has been consulted for hallucinations, seeing some bugs that are not there, saying she has some ants crawling around her apartment, but they are not really there. She was not reporting any auditory or visual hallucinations. She feels weak, fatigued and dizzy, and this is a recurrence for her; multiple admissions for the same thing of unclear etiology. She saw Psych and Neurology for this in the past. She is being treated for depression, and due to is being given some Adderall. She does not like where she is living. She is very stressed about this and she talks to [facility] about this. She has a history of depression and poly somnia. She was seen by Psych in the past multiple times. I am going to reorder Psych and Neuro. PAST MEDICAL HISTORY: Prior stroke, CVA, right-sided weakness, lumbar disc disease, cervical disc disease, history of a brain injury, fell down stairs in 2010, right-sided paralysis. ALLERGIES: CAT DANDER and TOMATO. She smokes multiple years, a pack a day at least. SOCIAL HISTORY: Lives by herself. She has a guardian. She has grandkids and a dad. PHYSICAL EXAMINATION: Obese white female giving appropriate answers. She has no agitation. Speech is fluent. Denies any suicidal ideations. PSYCH: She is alert and oriented x3. Judgment is good. ASSESSMENT: 1. Dizziness, unclear etiology; possible vertigo, recurrent, versus dehydration. Wait for neurology recommendations. She has a history of a stroke. 2. Cervical lumbar disc disease. Will have Anesthesia see her for possible epidural shot. 3. Major depression. Psychiatry saw her and did not think there was anything serious going on. They recommend maybe getting off Keppra prednisone. They are not going to take her to the psych garcia, so she is avoiding use of any narcotics or sedatives. Possibly will have to restock some her medications that she is on. Continue with the Abilify and Adderall. Keppra -- not sure if we can stop that. Will talk to Neurology. Please see further orders. [id number] / IJN: [id number] /
[2020-12-04 20:13] LABS: Folate, Serum 9.9 ng/mL
[2020-12-04] MEDS: KETOROLAC 15 MG/ML 1 ML VIAL IVP SCH (20:40)
[2020-12-04] MEDS: ARIPiprazole 5 MG TAB PO SCH (20:41)
[2020-12-04] MEDS: ETODOLAC 400 MG TAB PO SCH (20:42)
[2020-12-04] MEDS: ATORVASTATIN 20 MG TAB PO SCH (20:42)
[2020-12-04] MEDS: NYSTATIN 100,000 UNIT/GM POWD 15 GM TOPICAL SCH (20:43)
[2020-12-04] MEDS ORDERED: ARIPiprazole 5 MG TAB PO SCH (21:00)
[2020-12-05] MEDS: KETOROLAC 15 MG/ML 1 ML VIAL IVP SCH ×5 (01:51→23:02)
[2020-12-05] MEDS: ETODOLAC 400 MG TAB PO SCH ×2 (08:34→20:13)
[2020-12-05] MEDS: ASPIRIN 81 MG PO SCH (08:35)
--- NOTE | 2020-12-05 08:38 | P.PAINCN ---
History of Present Illness - Reason for Consult Consult date: 12/05/20 - History of Present Illness This is a 49-year-old patient who presents as an inpatient consult. She came into the emergency department last night with persistent dizziness. She has a history of a stroke with right-sided weakness, memory loss. In general the patient lives alone and is a poor historian. Currently complaining of low back pain with radiation into the right hip and right posterior lower extremity stopping in the knee area. He described as sharp and stabbing. She has a history of chronic low back pain with interventions that'll help her in the past. In terms of management in the past we saw her in June 2020 where she was having similar pain and received an L5-S1 and sacroiliac joint injection on the left side. She said these injections were helpful for her and she would like to repeat them. Although she has numbness and tingling in her right lower extremity, she denies any saddle anesthesia, loss of bowel or bladder incontinence, any new weakness in either lower extremity. In addition to above, 13-point review of systems is also negative for chest pain, shortness of breath, changes in vision, changes in hearing, new onset weakness, abdominal pain, diarrhea, extreme fatigue, malaise, fever, skin changes, homicidal or suicidal ideation, or bowel or bladder incontinence. Physical Examinations : -Constitutiona : Cooperative , not in acute distress . -HEENT : nech : supple , no Lymphadenopathy , normal thyroid size . : eyes : no ptosis , no icterus, no photophobia . - neurologic : Cranial nerve II to XII intact , no focal neurological deffecit . -psychatric : alert , oriented X 3 , appropriate affect , intact judgment and insight . -Lymphatic : no Lymphadenopathy . - musculoskeltal : Lumber spine moter stegnth lower extremities ,thigh and legs 3/5 Right side , 5/5 Left side deep tendon reflexes : normal Knee Jerk , normal ankle Jerk decreased sensation over the right Thigh ,(anterior and medial aspect ) Decreased sensation over the left lower extremity lumber facet Loading Test =positive Right , positive Left Range of motion of the lumbar spine Flexion 30 degrees, extension 10 degrees strait leg raising test = positive at 30 degree on the left side Fabere test= positive Right , and positive LT . Sever tenderness over the Sacroiliac joint on the right sides Gaenslen test=negative right ,and positive right Seated flexion test= negative right ,and positive right Imaging: None Assessment: 1. Lumbar spondylosis and lumbar facet artrhopathy 2.Right sacroiliitis Plan: - We will schedule her for L5-S1 epidural steroid injection as well as right- sided sacroiliac joint injection. She had these injections on the left side in June of last year which were helpful. I spent 48 minutes on patient care today. The time was used to review medical records including relevant urine studies and prescription history (MAPs), review of the available imaging, evaluation and examination the patient, coordination of care at the medical staff and if applicable referring physicians, as well as creation of the medical record. Past Medical History Past Medical History: Chest Pain / Angina, COPD, CVA/TIA, Memory Impairment, Neurologic Disorder Additional Past Medical History / Comment(s): Pt has history of brain injury following fall down flight of stairs in 2010 and was comatose for 3 months, then when she regained consciousness she had a CVA with R sided paralysis/p arasthesia/decreased vision R eye/decreased hearing R ear/loss of sensation r inside of mouth-takes care with what food she eats/no longer has feelings of hunger/cannot taste or smell, pt denies ever having a seizure, hypothyroid, occasional pedal edema, occasional headaches. History of Any Multi-Drug Resistant Organisms: None Reported Past Surgical History: Section, Tonsillectomy, Tubal Ligation Additional Past Surgical History / Comment(s): Past trach/peg tube, pt thinks some kind of brain/skull surgery while comatose in 2010 at [facility]. Past Anesthesia/Blood Transfusion Reactions: No Reported Reaction Smoking Status: Current every day smoker - Past Family History Mother Family Medical History: Cancer Additional Family Medical History / Comment(s): Mother of cancer, pt does not know what type. Father Family Medical History: Cancer Additional Family Medical History / Comment(s): Father is alive and has had 3 different types of cancer but survived them all. Medications and Allergies Home Medications Medication Instructions Recorded Confirmed Type levETIRAcetam [Keppra] 500 mg PO DAILY 10/17/17 12/04/20 History ARIPiprazole [Abilify] 5 mg PO HS 02/29/20 12/04/20 History Diclofenac Sodium [Voltaren] 75 mg PO BID 05/31/20 12/04/20 History Aspirin EC [Ecotrin Low Dose] 81 mg PO DAILY 07/16/20 12/04/20 History Vitamin B Complex 1 cap PO DAILY 07/16/20 12/04/20 History Nystatin 100,000 Unit/gm Powd 1 applic TOPICAL BID 09/13/20 12/04/20 History [Mycostatin Powder] Albuterol Nebulized [Ventolin 2.5 mg INHALATION RT-Q4H PRN ml 09/17/20 12/04/20 Rx Nebulized] Dextroamphetamine/Amphetamine 20 mg PO DAILY #3 tab 09/24/20 12/04/20 Rx [Adderall] Atorvastatin Calcium [Lipitor] 20 mg PO HS 10/13/20 12/04/20 History Linaclotide [Linzess] 145 mcg PO DAILY 12/04/20 12/04/20 History Nitroglycerin Sl Tabs [Nitrostat] 0.4 mg SL Q5M PRN 12/04/20 12/04/20 History Tiotropium Br/Olodaterol HCl 1 puff INHALATION RT-DAILY 12/04/20 12/04/20 History [Stiolto Respimat Inhal [place]] methylPREDNISolone [Medrol Dose See Taper PO DIRECTED 12/04/20 12/04/20 History Pack] Allergies Allergy/AdvReac Type Severity Reaction Status Date / Time cat dander Allergy Rash/Hives Verified 12/04/20 08:31 tomato Allergy Rash/Hives Verified 12/04/20 08:31 Physical Exam Vitals: Vital Signs Temp Pulse Pulse Resp BP BP Pulse Ox 12/05/20 07:47 98.0 F 63 16 119/77 98 12/05/20 02:00 98.2 F 58 L 16 109/71 94 L 12/04/20 20:00 98.4 F 89 18 111/73 99 12/04/20 18:17 97.9 F 57 L 16 115/68 97 12/04/20 17:53 98.1 F 61 20 102/59 97 12/04/20 16:00 70 18 122/56 99 12/04/20 11:00 67 18 114/73 99 12/04/20 10:00 18 99 12/04/20 09:04 59 L 18 116/72 99 Intake and Output 12/04/20 12/05/20 12/05/20 22:59 06:59 14:59 Intake Total 400 Balance 400 Intake: Oral 400 Other: Voiding Method Toilet Toilet # Voids 2 3 Weight 99.79 kg Results CBC & Chem 7: 12/04/20 08:41 12/04/20 08:41 Labs: Abnormal Lab Results - Last 24 Hours (Table) 12/04/20 12/04/20 12/04/20 Range/Units 08:41 08:41 08:41 WBC 10.7 H (3.8-10.6) k/uL APTT 19.3 L (22.0-30.0) sec BUN 22 H (7-17) mg/dL Glucose 110 H (74-99) mg/dL Urine Appearance (Clear) Urine Protein (Negative) Ur Leukocyte Esterase (Negative) Urine RBC (0-5) /hpf Urine WBC (0-5) /hpf Urine Bacteria (None) /hpf Urine Mucus (None) /hpf Ur Amphetamines Screen (NotDetected) U Benzodiazepines Scrn (NotDetected) 12/04/20 Range/Units 09:35 WBC (3.8-10.6) k/uL APTT (22.0-30.0) sec BUN (7-17) mg/dL Glucose (74-99) mg/dL Urine Appearance Cloudy H (Clear) Urine Protein Trace H (Negative) Ur Leukocyte Esterase Small H (Negative) Urine RBC 6 H (0-5) /hpf Urine WBC 11 H (0-5) /hpf Urine Bacteria Few H (None) /hpf Urine Mucus Occasional H (None) /hpf Ur Amphetamines Screen Detected H (NotDetected) U Benzodiazepines Scrn Detected H (NotDetected) Microbiology - Last 24 Hours (Table) 12/04/20 09:35 Urine Culture - Preliminary Urine,Voided PQRS Measure Charge Sheet PQRS Narrative: Smoking Status Current every day smoker Blood Pressure [Left Arm] 119/77 Blood Pressure 102/59 Pain Intensity [Right Lower 8 Back] Pain Intensity 0 Pain Scale Used Numeric (1 - 10) Scale Used Numeric (1 - 10) Home Medications: Ambulatory Orders levETIRAcetam [Keppra] 500 mg PO DAILY 10/17/17 ARIPiprazole [Abilify] 5 mg PO HS 02/29/20 Diclofenac Sodium [Voltaren] 75 mg PO BID 05/31/20 Aspirin EC [Ecotrin Low Dose] 81 mg PO DAILY 07/16/20 Vitamin B Complex 1 cap PO DAILY 07/16/20 Nystatin 100,000 Unit/gm Powd [Mycostatin Powder] 1 applic TOPICAL BID 09/13/20 Albuterol Nebulized [Ventolin Nebulized] 2.5 mg INHALATION RT-Q4H PRN ml 09/17/20 Dextroamphetamine/Amphetamine [Adderall] 20 mg PO DAILY #3 tab 09/24/20 Atorvastatin Calcium [Lipitor] 20 mg PO HS 10/13/20 Linaclotide [Linzess] 145 mcg PO DAILY 12/04/20 Nitroglycerin Sl Tabs [Nitrostat] 0.4 mg SL Q5M PRN 12/04/20 Tiotropium Br/Olodaterol HCl [Stiolto Respimat Inhal [place]] 1 puff INHALATION RT-DAILY 12/04/20 methylPREDNISolone [Medrol Dose Pack] See Taper PO DIRECTED 12/04/20
[2020-12-05] MEDS ORDERED: levETIRAcetam 500 MG TAB PO SCH (09:00)
[2020-12-05] MEDS: NON FORMULARY DRUG (Linaclotide [Linzess] 145 MCG Capsule) PO SCH (09:19)
[2020-12-05] MEDS: NON FORMULARY DRUG (Dextroamphetamine/Amphetamine [Adderall] 20 MG Tablet) PO SCH (09:19)
[2020-12-05] MEDS: NYSTATIN 100,000 UNIT/GM POWD 15 GM TOPICAL SCH ×2 (09:20→20:15)
[2020-12-05] MEDS ORDERED: CYANOCOBALAMIN 1,000 MCG/ML 1 ML VIAL IM ONE (11:00)
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
--- NOTE | 2020-12-05 16:35 | PN ---
PROGRESS NOTE A 49-year-old white female who neurology has seen for severe dizziness. She is admitted with significant dizziness. She is vertigo, room spinning sensation. She says her patch that she used for motion sickness is not working behind her ear. She has a questionable history of some ants, but she says they are real ants people know there is ants. In her apartment, there is a hole in her window causing it. Temperature 98, pulse 60s, respirations 16 to 18, blood pressure 100s over 70s. She looks weak, fatigued, staring into space, given answers appropriately though. Her strength is 4 out of 5 to 3-1/2 out of 5 on the right side. Left side is 4-1/2 out of 5, strength in left arm, left leg. Finger to nose test is normal. CARDIAC: S1-S2. HEMATOLOGY: Negative Homans. PSYCH: Fair mood and affect. ENDOCRINE: BMI is over 40. Labs were reviewed. Chronic recurrent dizziness, possible vertigo, although she failed motion sickness patches behind the ears as well as Antivert. Psychiatry says she is okay stable montano for seizures with Keppra. She is on Keppra. B12 levels were 270. Chronic back pain. We are going to give her B12 injection due to B12 deficiency. We will give her B12 at 1000 mcg sublingual daily. Possible ENT consult for vertigo. She denies any hallucinations. She does not want to have seizure at all. She prefers switching to another medicine, so neurology is going to cut her Keppra to 250 once daily for 2 weeks and then stop Keppra and start her on Lamictal 25 mg b.i.d. for 7 days, then increase to 50 twice a day for seizure prophylaxis. Med to also be used for mood stabilizer. If she gets a rash, she will stop it. She is not driving, climbing ladders or do machinery. Continue aspirin, statins. Otherwise neurologically says she is clear. MMODL / IJN: [id number] /
[2020-12-05] MEDS: lamoTRIgine 25 MG TAB PO SCH (20:13)
[2020-12-05] MEDS: ATORVASTATIN 20 MG TAB PO SCH (20:13)
[2020-12-05] MEDS: ARIPiprazole 5 MG TAB PO SCH (20:14)
[2020-12-06] MEDS: ACETAMINOPHEN TAB 325 MG TAB PO PRN (02:59)
[2020-12-06] MEDS: KETOROLAC 15 MG/ML 1 ML VIAL IVP SCH ×4 (05:23→23:23)
[2020-12-06] MEDS: ASPIRIN 81 MG PO SCH (06:15)
[2020-12-06] MEDS ORDERED: LACTATED RINGERS 1,000 ML IV ONE (08:15)
[2020-12-06] MEDS ORDERED: ROPIVACAINE 5MG/ML 20ML VIAL ONE (08:44)
[2020-12-06] MEDS ORDERED: IOPAMIDOL M200 10 ML VIAL ONE (08:44)
[2020-12-06] MEDS ORDERED: methylPREDNISolone ACETATE 40 MG/ML 1 ML VIAL ONE (08:44)
--- NOTE | 2020-12-06 08:59 | P.PCN ---
Date of Procedure: 12/06/20 Procedure(s) Performed: PREOPERATIVE DIAGNOSIS: 1-Lumbar spondylosis with Facet arthropathy without myelopathy. 2-Right sacroiliitis POSTOPERATIVE DIAGNOSIS: Same as Pre op Diagnosis. PROCEDURE 1. Lumbar epidural steroid injection under fluoroscopic guidance at the L5-S1 level. (Fluoroscopy imaging was available in radiology department) 2. Lumbar epidurogram. 3-Right sacroiliac joint steroid injection under fluoroscopy guidance ANESTHESIA: Local with 1% lidocaine 4 ml only EBL: Minimal PROCEDURE INDICATION: The patient with low back pain and radiculitis symptoms unresponsive to conservative treatment. Fluoroscopy was used to optimize visualization of the needle placement and to maximize safety. PROCEDURE DESCRIPTION / TECHNIQUE: The patient was seen and identified in the preoperative area. Risks, benefits, complications including but not limited to infections ,bleeding ,allergic reaction to the medications ,nerve damage and not complete pain releife , and alternatives were discussed with the patient. The patient agreed to proceed with the procedure and signed the consent. IV was started, and vital signs were stable. Patient was taken to the OR and time out was completed. The patient was placed in the prone position on procedure table and a pillow was placed under the abdomen to reduce lumbar lordosis. The lumbosacral area was prepped and draped in the usual sterile fashion.ere closely monitored during the procedure. Vital signs was monitered during the entire procedure. Using anterior-posterior fluoroscopy, the L5-S1 interlaminar space was identified and the skin over this site was marked and then infiltrated with 1% lidocaine subcutaneously. Subsequently, a 20-gauge Tuohy epidural needle was inserted and advanced toward the epidural space using the ``Loss of resistance technique and guided by AP and lateral fluoroscopy. The correct needle position in the epidural space was verified with the injection of 2 mL of the water soluble contrast dye Isovue 200 contrast and observing an excellent epidurogram with the epidural spread of the dye, after negative aspiration for blood and CSF and in the absence of paresthesias. Again after negative aspiration, a 6 ml mixture containing 40 mg of Depo-medrol , and 2 ml of preservative free Normal Saline, and 2 ml of preservative free lidocaine 1% solution was injected and a washout of epidurogram was seen. Needle was withdrawn intact, skin was cleansed, and bandages were applied. then after that the Right sacroiliac joint injection done under sterile technique after local infiltration of the skin and subcu interstitial at the location of the Right sacroiliac joint with lidocaine 1% 2 ml , then 22-gauge Quincke-type needle advanced slowly under fluoroscopy and placed in the lower portion of the right sacroiliac joint, negative placement confirmed under fluoroscopy then after negative aspiration,Ropivacaine 0.5% 3 mL mixed with 20 mg of Depo-Medrol and injected after negative aspiration patient tolerated the procedure well without any complications COMPLICATIONS: None DISPOSITION / PLANS: The patient was placed in a supine position and transferred to the recovery area in a stable condition for observation. There was no evidence of lower extremity motor or sensory deficit after the procedure. .
--- NOTE | 2020-12-06 09:07 | FL ---
EXAMINATION TYPE: FL guided pain mgmt statistic DATE OF EXAM: 12/06/2020 HISTORY: Fluoroscopy time 11 seconds of fluoroscopy provided. IMPRESSION: 1. Fluoroscopy time.
[2020-12-06] MEDS: ETODOLAC 400 MG TAB PO SCH ×2 (09:12→20:00)
[2020-12-06] MEDS: levETIRAcetam 250 MG TAB PO SCH (09:13)
[2020-12-06] MEDS: lamoTRIgine 25 MG TAB PO SCH ×2 (09:13→19:59)
[2020-12-06] MEDS: NON FORMULARY DRUG (Linaclotide [Linzess] 145 MCG Capsule) PO SCH (10:51)
[2020-12-06] MEDS: NON FORMULARY DRUG (Dextroamphetamine/Amphetamine [Adderall] 20 MG Tablet) PO SCH (10:51)
[2020-12-06] MEDS: NYSTATIN 100,000 UNIT/GM POWD 15 GM TOPICAL SCH ×2 (10:52→20:01)
[2020-12-06 15:07] VITALS: RESP 16
[2020-12-06] MEDS ORDERED: bisacodyL 5 MG TABLET.DR PO STA (17:44)
[2020-12-06] MEDS: SENNOSIDES 8.6 MG TAB PO SCH (19:59)
[2020-12-06] MEDS: MECLIZINE 12.5 MG TAB PO SCH ×2 (19:59→23:24)
[2020-12-06] MEDS: ATORVASTATIN 20 MG TAB PO SCH (19:59)
[2020-12-06] MEDS: ARIPiprazole 5 MG TAB PO SCH (20:01)
[2020-12-06] MEDS ORDERED: CYANOCOBALAMIN 1,000 MCG/ML 1 ML VIAL IM ONE (23:32)
--- NOTE | 2020-12-06 23:34 | P.PN ---
Subjective Progress Note Date: 12/06/20 Patient offers no new complaints. She has undergone epidural steroid injection at L4-L5 level under fluoroscopy. Also had undergone right sacroiliac joint steroid injection. Patient is now on Lamictal 25 mg twice a day, and half the dose of Keppra, 250 mg daily. Patient denies any rash, or any side effects. Objective - Vital Signs Vital signs: Vital Signs Temp 97.7 F 12/06/20 15:05 Pulse 63 12/06/20 15:05 Resp 16 12/06/20 15:05 BP 106/69 12/06/20 15:05 Pulse Ox 93 L 12/06/20 15:05 Intake & Output 12/05/20 12/06/20 12/06/20 18:59 06:59 18:59 Intake Total 50 Balance 50 Intake: IV 50 Other: Voiding Method Toilet Toilet Toilet # Voids 1 1 1 - Exam Patient's mental status, speech and language functions are normal. Muscle strength is normal. No ataxia. - Labs CBC & Chem 7: 12/04/20 08:41 12/04/20 08:41 Labs: Microbiology - Last 24 Hours (Table) 12/04/20 09:35 Urine Culture - Final Urine,Voided Enterococcus faecium Assessment and Plan Assessment: * Chronic recurrent dizziness. Possible peripheral vestibular dysfunction. Examination is nonfocal. * Hallucinations, possible due to delirium. This may be related to use of steroids or other medications. Patient completely declines any hallucinations. She completely believes that she has ants in her home. Psych on board. Patient has history of depression. * History of CVA left temporal lobe, in 2010, with mild right-sided deficits. * Patient on seizure prophylaxis with Keppra, never had a clinical seizure. Patient had an EEG performed twice in the past which were normal. * B12 deficiency, with B12 levels came as 270. * Chronic back pain. Plan: * Patient has B12 deficiency. Patient will be given another B12 injection 1000 g IM, while in the hospital. Suggest continuing vitamin B12 1000 g sublingually daily. * If the vertigo persists, would recommend ENT consult as outpatient to rule out peripheral vestibular dysfunction. * Regarding hallucination, patient completely declines of any hallucinations. * Regarding Keppra, patient is on Keppra 500 mg daily for seizure prophylaxis. Keppra can produce behavioral issues. I spoke to patient about considering weaning off Keppra, as she has not had any seizure for several years, and she had EEG performed twice in the past that were normal. Patient states that she does not want to have seizure at all. She prefers switching to another medication if needed. We will therefore decrease Keppra to 250 mg once daily for 2 weeks and then stop Keppra. Patient will be started on Lamictal 25 mg twice a day for 7 days, and then increase to 50 mg twice a day and continue at this dose for seizure prophylaxis. Lamictal is also a mood stabilizer. Patient was recommended to stop Lamictal if she gets any rash. Patient should not drive, climb ladders, operating dangerous machinery or unsupervised swimming. * Continue aspirin and statins. * Neurologically clear otherwise with the above recommendation. We will sign off. Please reconsult if any other concerns.
[2020-12-07] MEDS: KETOROLAC 15 MG/ML 1 ML VIAL IVP SCH ×3 (05:29→17:38)
[2020-12-07] MEDS: MECLIZINE 12.5 MG TAB PO SCH ×3 (08:41→19:58)
[2020-12-07] MEDS: SENNOSIDES 8.6 MG TAB PO SCH ×2 (08:41→19:58)
[2020-12-07] MEDS: ASPIRIN 81 MG PO SCH (08:42)
[2020-12-07] MEDS: lamoTRIgine 25 MG TAB PO SCH ×2 (08:42→19:58)
[2020-12-07] MEDS: ETODOLAC 400 MG TAB PO SCH ×2 (08:46→19:56)
[2020-12-07] MEDS: levETIRAcetam 250 MG TAB PO SCH (08:49)
[2020-12-07] MEDS: NON FORMULARY DRUG (Linaclotide [Linzess] 145 MCG Capsule) PO SCH (11:12)
[2020-12-07] MEDS: NON FORMULARY DRUG (Dextroamphetamine/Amphetamine [Adderall] 20 MG Tablet) PO SCH (11:12)
[2020-12-07] MEDS ORDERED: ONDANSETRON 4 MG TAB PO PRN (11:16)
[2020-12-07] MEDS: NYSTATIN 100,000 UNIT/GM POWD 15 GM TOPICAL SCH ×2 (11:26→19:58)
[2020-12-07] MEDS: ACETAMINOPHEN TAB 325 MG TAB PO PRN (15:28)
[2020-12-07] MEDS: ATORVASTATIN 20 MG TAB PO SCH (19:56)
[2020-12-07] MEDS: ARIPiprazole 5 MG TAB PO SCH (19:56)
--- NOTE | 2020-12-07 21:44 | PN ---
PROGRESS NOTE This patient is status post lumbar epidural, L4-L5. She is on Lamictal 25 twice a day and half a dose of Keppra 250 daily. Denies any rashes or side effects. Temperature 97.7, pulse 63, respiratory rate 16 to 18, blood pressure 106/60s, oxygen 93% to 96%. She is up ambulating. CARDIOVASCULAR: S1, S2. LUNGS: Clear. GI: Soft. HEMATOLOGY: Negative Homans. She has been up walking to the bathroom. ASSESSMENT: 1. Chronic recurrent dizziness. 2. Peripheral vestibular dysfunction. 3. Hallucinations, possibly due to delirium, but doubt this. Continue with current home medications. 1. History of cerebrovascular accident. They are switching her off Keppra due to seizure prophylaxis and possible side effects. 1. B12 deficiency. B12 levels are 270. 2. Chronic back pain. She is going to get B12 injection of 1000 mcg IM while in the hospital and sublingual daily. She needs vitamin B12 1000 mcg at home. Possibly ENT if she continues to have failure to different medications, including Antivert, Valium, etc. Neurology is cutting her Keppra to 250 b.i.d. for 2 weeks, and Keppra will be stopped. 25 b.i.d. for 7 days and increase to 50 b.i.d. Please see further orders. Possible discharge home soon. MMODL / IJN: [id number] /
[2020-12-08 07:57] VITALS: BP 100/68; PULSE 55; TEMP 97.9
[2020-12-08] MEDS: ASPIRIN 81 MG PO SCH (08:47)
[2020-12-08] MEDS: NYSTATIN 100,000 UNIT/GM POWD 15 GM TOPICAL SCH (08:47)
[2020-12-08] MEDS: lamoTRIgine 25 MG TAB PO SCH (08:47)
[2020-12-08] MEDS: ETODOLAC 400 MG TAB PO SCH (08:47)
[2020-12-08] MEDS: levETIRAcetam 250 MG TAB PO SCH (08:47)
[2020-12-08] MEDS: SENNOSIDES 8.6 MG TAB PO SCH (08:48)
[2020-12-08] MEDS: NON FORMULARY DRUG (Dextroamphetamine/Amphetamine [Adderall] 20 MG Tablet) PO SCH (08:48)
[2020-12-08] MEDS: NON FORMULARY DRUG (Linaclotide [Linzess] 145 MCG Capsule) PO SCH (08:48)
[2020-12-08] MEDS: MECLIZINE 12.5 MG TAB PO SCH (08:48)
--- NOTE | 2020-12-08 12:01 | DS ---
DISCHARGE SUMMARY DISCHARGE MEDICINE: 1. Antivert 12.5 t.i.d. 2. Keppra 250 daily. 3. Lamictal 25 b.i.d. 4. Senokot 8.6 b.i.d. 5. Abilify 5 mg daily. 6. Voltaren 75 mg b.i.d. 7. Ecotrin 81 mg daily. 8. Vitamin B complex 1 daily. 9. Nystatin powder topically b.i.d. 10.Albuterol nebulized q.4. 11.Adderall 20 mg daily. 12.Lipitor 20 daily. 13.Linzess 145 mcg daily. 14. 2 puffs daily. 15.Nitro sublingual p.r.n. for pain. CONDITION: Stable. PROGNOSIS: Guarded. Ambulate as tolerated. He was followed by Neurology in the hospital for severe dizziness and balance, unable ambulate. Physical therapy helped her move better. Started back on Antivert, scopolamine patch had failed. Neurology and psychiatry cleared her to go home. They want her transmitted on Lamictal 25 b.i.d. for 15 days and go up to 50 b.i.d. and will cut Keppra down from 500 mg daily to 250 daily for 15 days and will stop that. No smoking at home. Weight restriction. Gave senna for constipation. Continue with breathing. No smoking. Prognosis guarded. She refused to go to a [facility]. She is able to ambulate up to the bathroom at which time we sent her home. Diet regular. Condition stable. Prognosis guarded. MMODL / CHEYANNEN: [id number] /
== END 2020-12-08 13:21 | disposition home health service (06) | DRG 149 ==
LOC: EC 07:51 → 6NMEDSUR 09:57 → OBSVTOIN 12-05 14:06
PROVIDERS: ADMIT Family Medicine; ATTEND Family Medicine
PROC: B01B1ZZ Fluoroscopy of Spinal Cord using Low Osmolar Contrast (ICD-10-PCS; 2020-12-06)
PROC: 3E0R33Z Introduction of Anti-inflammatory into Spinal Canal, Percutaneous Approach (ICD-10-PCS; principal; 2020-12-06 09:00)
PROC: 3E0R3BZ Introduction of Anesthetic Agent into Spinal Canal, Percutaneous Approach (ICD-10-PCS; 2020-12-06 09:00)
DX: H81.8X9 Other disorders of vestibular function, unspecified ear (principal); I69.351 Hemiplegia and hemiparesis following cerebral infarction affecting right dominant side; G93.89 Other specified disorders of brain; M46.1 Sacroiliitis, not elsewhere classified; G40.909 Epilepsy, unspecified, not intractable, without status epilepticus; J44.9 Chronic obstructive pulmonary disease, unspecified; Z20.822 Contact with and (suspected) exposure to COVID-19; G89.29 Other chronic pain; M47.816 Spondylosis without myelopathy or radiculopathy, lumbar region; M50.90 Cervical disc disorder, unspecified, unspecified cervical region; E53.8 Deficiency of other specified B group vitamins; F32.9 Major depressive disorder, single episode, unspecified; E78.5 Hyperlipidemia, unspecified; M79.601 Pain in right arm; M25.551 Pain in right hip; H54.61 Unqualified visual loss, right eye, normal vision left eye; H91.91 Unspecified hearing loss, right ear; R41.0 Disorientation, unspecified; F17.210 Nicotine dependence, cigarettes, uncomplicated; Z71.6 Tobacco abuse counseling; Z79.82 Long term (current) use of aspirin; Z79.1 Long term (current) use of non-steroidal anti-inflammatories (NSAID); Z79.899 Other long term (current) drug therapy; Z98.891 History of uterine scar from previous surgery; Z90.89 Acquired absence of other organs; Z98.51 Tubal ligation status; Z91.018 Allergy to other foods; Z91.048 Other nonmedicinal substance allergy status; Z80.9 Family history of malignant neoplasm, unspecified
CPT/HCPCS: 27096; 36415; 62323; 70450; 80048; 80053; 80306; 80320; 81001; 82607; 82746; 83605; 83735; 84443; 84484; 85025; 85610; 85730; 87077; 87086; 87186; 87635; 93005; 94640; 96361; 96374; 96375; 99285

== ENCOUNTER 2020-12-08 14:59 | Inpatient (IN) | payer MEDICARE, OTHER ==
[2020-12-08] MEDS ORDERED: SODIUM CHLORIDE 0.9% 1,000 ML IV STA (15:15)
--- NOTE | 2020-12-08 15:24 | ED ---
General Adult HPI - General Source: patient, EMS, RN notes reviewed Mode of arrival: EMS Limitations: no limitations <Bakari Correia - Last Filed: 12/08/20 17:42> <Roselyn Seymour - Last Filed: 12/09/20 16:04> - General Chief complaint: Weakness Stated complaint: Weak/Dizzy - History of Present Illness Initial comments: Patient is a 49-year-old female presents to emergency department with some dizziness and weakness. She notes that she was recently discharged today in it only been home for approximately an hour and a half before returning to the emergency room with the same complaint. While admitted to the hospital she was seen by physical therapy and neurology both cleared her to go home today. She reported very vague symptoms. She noted that she feels weak and hasn't had a solid bowel movement approximate 4 days. She denied any nausea vomiting diarrhea constipation fever fatigue chills chest pain shortness of breath h eadache. (Bakari Correia) - Related Data Home Medications Medication Instructions Recorded Confirmed ARIPiprazole [Abilify] 5 mg PO HS 02/29/20 12/08/20 Diclofenac Sodium [Voltaren] 75 mg PO BID 05/31/20 12/08/20 Aspirin EC [Ecotrin Low Dose] 81 mg PO DAILY 07/16/20 12/08/20 Vitamin B Complex 1 cap PO DAILY 07/16/20 12/08/20 Nystatin 100,000 Unit/gm Powd 1 applic TOPICAL BID 09/13/20 12/08/20 [Mycostatin Powder] Atorvastatin Calcium [Lipitor] 20 mg PO HS 10/13/20 12/08/20 Linaclotide [Linzess] 145 mcg PO DAILY 12/04/20 12/08/20 Nitroglycerin Sl Tabs [Nitrostat] 0.4 mg SL Q5M PRN 12/04/20 12/08/20 Tiotropium Br/Olodaterol HCl 1 puff INHALATION RT-DAILY 12/04/20 12/08/20 [Stiolto Respimat Inhal [place]] Previous Rx's Medication Instructions Recorded Albuterol Nebulized [Ventolin 2.5 mg INHALATION RT-Q4H PRN ml 09/17/20 Nebulized] Dextroamphetamine/Amphetamine 20 mg PO DAILY #3 tab 09/24/20 [Adderall] Meclizine [Antivert] 12.5 mg PO TID 30 Days #90 tab 12/08/20 Sennosides [Senokot] 8.6 mg PO BID 30 Days #60 tab 12/08/20 lamoTRIgine [LaMICtal] 25 mg PO BID 15 Days #30 tab 12/08/20 levETIRAcetam [Keppra] 250 mg PO DAILY 15 Days #15 tab 12/08/20 Allergies Allergy/AdvReac Type Severity Reaction Status Date / Time cat dander Allergy Rash/Hives Verified 12/08/20 18:06 tomato Allergy Rash/Hives Verified 12/08/20 18:06 Review of Systems ROS Other: All systems not noted in ROS Statement are negative. <Bakari Correia - Last Filed: 12/08/20 17:42> ROS Other: All systems not noted in ROS Statement are negative. <Roselyn Seymour - Last Filed: 12/09/20 16:04> ROS Statement: Those systems with pertinent positive or pertinent negative responses have been documented in the HPI. 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 History of Any Multi-Drug Resistant Organisms: None Reported Past Surgical History: Section, Tonsillectomy, Tubal Ligation Additional Past Surgical History / Comment(s): Past trach/peg tube, pt thinks some kind of brain/skull surgery while comatose in 2010 at [facility]. Past Anesthesia/Blood Transfusion Reactions: No Reported Reaction Past Psychological History: Anxiety Smoking Status: Current every day smoker Past Alcohol Use History: Occasional Past Drug Use History: Marijuana - Past Family History Mother Family Medical History: Cancer Additional Family Medical History / Comment(s): Mother of cancer, pt does not know what type. Father Family Medical History: Cancer Additional Family Medical History / Comment(s): Father is alive and has had 3 different types of cancer but survived them all. <Bakari Correia - Last Filed: 12/08/20 17:42> General Exam Limitations: no limitations General appearance: alert, in no apparent distress, obese Head exam: Present: atraumatic, normocephalic, normal inspection Eye exam: Present: normal appearance, PERRL, EOMI. Absent: scleral icterus, conjunctival injection, periorbital swelling ENT exam: Present: normal exam, mucous membranes moist Neck exam: Present: normal inspection. Absent: tenderness, meningismus, lymphadenopathy Respiratory exam: Present: normal lung sounds bilaterally. Absent: respiratory distress, wheezes, rales, rhonchi, stridor Cardiovascular Exam: Present: regular rate, normal rhythm, normal heart sounds. Absent: systolic murmur, diastolic murmur, rubs, gallop, clicks GI/Abdominal exam: Present: soft, normal bowel sounds. Absent: distended, tenderness, guarding, rebound, rigid Extremities exam: Present: normal inspection, full ROM, normal capillary refill. Absent: tenderness, pedal edema, joint swelling, calf tenderness Neurological exam: Present: alert, oriented X3, CN II-XII intact Expanded Cranial nerves: EOM's Intact: Normal, Tongue Deviation: Normal, Nystagmus: Normal, Facial Sensation: Normal Sensory exam: Upper Extremity Light Touch: Normal, Lower Extremity Light Touch: Normal Motor strength exam: RUE: 5, LUE: 5, RLE: 5, LLE: 5 Eye Response: (4) open spontaneously Motor Response: (6) obeys commands Verbal Response: (5) oriented Psychiatric exam: Present: normal affect, normal mood Skin exam: Present: warm, dry, intact, normal color. Absent: rash <Bakari Correia - Last Filed: 12/08/20 17:42> Course Vital Signs 12/08/20 12/08/20 15:01 17:45 Temperature 97.6 F 97.6 F Pulse Rate 71 68 Respiratory 16 16 Rate Blood Pressure 123/72 110/68 O2 Sat by Pulse 99 96 Oximetry EKG Findings - EKG Comments: EKG Findings:: Ventricular rate 64 bpm, ID interval 124 ms, QRS duration 80 ms, QT/QTC 394/406 ms, PRT axes 45/34/45. Normal sinus rhythm, normal ECG. <Bakari Correia - Last Filed: 12/08/20 17:42> Medical Decision Making - Lab Data Result diagrams: 12/08/20 15:50 12/08/20 15:50 - EKG Data -: EKG Interpreted by Me EKG shows normal: sinus rhythm Rate: normal - Radiology Data Radiology results: report reviewed, image reviewed <Bakari Correia - Last Filed: 12/08/20 17:42> - Lab Data Result diagrams: 12/08/20 15:50 12/08/20 15:50 <Roselyn Seymour - Last Filed: 12/09/20 16:04> - Medical Decision Making 49-year-old female that was recently discharged this morning from the hospital return to the emergency department complaining of weakness. Labs, EKG, chest x-ray 1 L normal saline, fork assembler ordered. Case discussed with Dr. Seymour, who talked with Dr. Bocanegra it was decided the patient be admitted for inpatient. (Bakari Correia) I personally saw and evaluated this patient. Patient was discharged earlier today after refusing to go to a rehab facility, upon arrival home she felt too weak walking through her apartment and decided to come back to the hospital at this time patient states she is agreeable to going to rehab. This was discussed with her primary care physician who accepts the patient and will work with case management for placement. (Roselyn Seymour) - Lab Data Lab Results 12/08/20 12/08/20 12/08/20 Range/Units 15:50 15:50 15:50 WBC 14.6 H (3.8-10.6) k/uL RBC 4.27 (3.80-5.40) m/uL Hgb 13.3 (11.4-16.0) gm/dL Hct 39.6 (34.0-46.0) % MCV 92.9 (80.0-100.0) fL MCH 31.3 (25.0-35.0) pg MCHC 33.7 (31.0-37.0) g/dL RDW 13.3 (11.5-15.5) % Plt Count 243 (150-450) k/uL MPV 8.0 Neutrophils % 72 % Lymphocytes % 22 % Monocytes % 4 % Eosinophils % 2 % Basophils % 0 % Neutrophils # 10.5 H (1.3-7.7) k/uL Lymphocytes # 3.2 (1.0-4.8) k/uL Monocytes # 0.6 (0-1.0) k/uL Eosinophils # 0.3 (0-0.7) k/uL Basophils # 0.1 (0-0.2) k/uL PT 10.0 (9.0-12.0) sec INR 0.9 (<1.2) APTT 21.6 L (22.0-30.0) sec Sodium 141 (137-145) mmol/L Potassium 4.2 (3.5-5.1) mmol/L Chloride 105 (98-107) mmol/L Carbon Dioxide 25 (22-30) mmol/L Anion Gap 11 mmol/L BUN 26 H (7-17) mg/dL Creatinine 0.55 (0.52-1.04) mg/dL Est GFR (CKD-EPI)AfAm >90 (>60 ml/min/1.73 sqM) Est GFR (CKD-EPI)NonAf >90 (>60 ml/min/1.73 sqM) Glucose 100 H (74-99) mg/dL Plasma Lactic Acid Tin (0.7-2.0) mmol/L Calcium 9.2 (8.4-10.2) mg/dL Magnesium 1.9 (1.6-2.3) mg/dL Total Bilirubin 0.4 (0.2-1.3) mg/dL AST 25 (14-36) U/L ALT 37 H (4-34) U/L Alkaline Phosphatase 78 (38-126) U/L Troponin I (0.000-0.034) ng/mL Total Protein 7.1 (6.3-8.2) g/dL Albumin 4.1 (3.5-5.0) g/dL Urine Color Urine Appearance (Clear) Urine pH (5.0-8.0) Ur Specific [place] (1.001-1.035) Urine Protein (Negative) Urine Glucose (UA) (Negative) Urine Ketones (Negative) Urine Blood (Negative) Urine Nitrite (Negative) Urine Bilirubin (Negative) Urine Urobilinogen (<2.0) mg/dL Ur Leukocyte Esterase (Negative) Urine RBC (0-5) /hpf Urine WBC (0-5) /hpf Ur Squamous Epith Cells (0-4) /hpf Urine Bacteria (None) /hpf Urine Mucus (None) /hpf 12/08/20 12/08/20 12/08/20 Range/Units 15:50 15:50 16:34 WBC (3.8-10.6) k/uL RBC (3.80-5.40) m/uL Hgb (11.4-16.0) gm/dL Hct (34.0-46.0) % MCV (80.0-100.0) fL MCH (25.0-35.0) pg MCHC (31.0-37.0) g/dL RDW (11.5-15.5) % Plt Count (150-450) k/uL MPV Neutrophils % % Lymphocytes % % Monocytes % % Eosinophils % % Basophils % % Neutrophils # (1.3-7.7) k/uL Lymphocytes # (1.0-4.8) k/uL Monocytes # (0-1.0) k/uL Eosinophils # (0-0.7) k/uL Basophils # (0-0.2) k/uL PT (9.0-12.0) sec INR (<1.2) APTT (22.0-30.0) sec Sodium (137-145) mmol/L Potassium (3.5-5.1) mmol/L Chloride (98-107) mmol/L Carbon Dioxide (22-30) mmol/L Anion Gap mmol/L BUN (7-17) mg/dL Creatinine (0.52-1.04) mg/dL Est GFR (CKD-EPI)AfAm (>60 ml/min/1.73 sqM) Est GFR (CKD-EPI)NonAf (>60 ml/min/1.73 sqM) Glucose (74-99) mg/dL Plasma Lactic Acid Tin 1.1 (0.7-2.0) mmol/L Calcium (8.4-10.2) mg/dL Magnesium (1.6-2.3) mg/dL Total Bilirubin (0.2-1.3) mg/dL AST (14-36) U/L ALT (4-34) U/L Alkaline Phosphatase (38-126) U/L Troponin I <0.012 (0.000-0.034) ng/mL Total Protein (6.3-8.2) g/dL Albumin (3.5-5.0) g/dL Urine Color Yellow Urine Appearance Clear (Clear) Urine pH 5.5 (5.0-8.0) Ur Specific [place] 1.025 (1.001-1.035) Urine Protein Negative (Negative) Urine Glucose (UA) Negative (Negative) Urine Ketones Negative (Negative) Urine Blood Negative (Negative) Urine Nitrite Negative (Negative) Urine Bilirubin 4+ H (Negative) Urine Urobilinogen 2.0 (<2.0) mg/dL Ur Leukocyte Esterase Trace H (Negative) Urine RBC 1 (0-5) /hpf Urine WBC 5 (0-5) /hpf Ur Squamous Epith Cells 6 H (0-4) /hpf Urine Bacteria Few H (None) /hpf Urine Mucus Occasional H (None) /hpf - EKG Data EKG Comments: Ventricular rate 64 bpm, ID interval 124 ms, QRS duration 80 ms, QT/QTC 394/406 ms, PRT axes 45/34/45. Normal sinus rhythm, normal ECG. (Bakari Correia) - Radiology Data Chest x-ray: Normal chest. No change. (Bakari Correia) Disposition Is patient prescribed a controlled substance at d/c from ED?: No Time of Disposition: 17:43 <Bakari Correia - Last Filed: 12/08/20 17:42> <Roselyn Seymour - Last Filed: 12/09/20 16:04> Clinical Impression: Dizziness, Unable to care for self Disposition: ADMITTED IP TO THIS HOSP Condition: Stable
[2020-12-08 16:03] LABS: Basophils # (A) 0.1 k/uL (0-0.2); Basophils % (A) 0 %; Eosinophils # (A) 0.3 k/uL (0-0.7); Eosinophils % (A) 2 %; HCT 39.6 % (34.0-46.0); HGB 13.3 gm/dL (11.4-16.0); Lymphocytes # (A) 3.2 k/uL (1.0-4.8); Lymphocytes % (A) 22 %; MCH 31.3 pg (25.0-35.0); MCHC 33.7 g/dL (31.0-37.0); MCV 92.9 fL (80.0-100.0); Monocytes # (A) 0.6 k/uL (0-1.0); Monocytes % (A) 4 %; Neutrophils # (A) 10.5 k/uL (1.3-7.7); Neutrophils % (A) 72 %; Platelet Count 243 k/uL (150-450); RBC 4.27 m/uL (3.80-5.40); RDW 13.3 % (11.5-15.5); WBC 14.6 k/uL (3.8-10.6)
[2020-12-08 16:23] LABS: INR 0.9 (<1.2)
[2020-12-08 16:24] LABS: Partial Thromboplastin Time 21.6 sec (22.0-30.0)
[2020-12-08 16:25] LABS: Potassium 4.2 mmol/L (3.5-5.1)
[2020-12-08 16:26] LABS: ALT 37 U/L (4-34); AST 25 U/L (14-36); African American GFR (CKD) >90 (>60 ml/min/1.73 sqM); Albumin 4.1 g/dL (3.5-5.0); Alkaline Phosphatase 78 U/L (38-126); Anion Gap 11 mmol/L; Blood Urea Nitrogen 26 mg/dL (7-17); Calcium 9.2 mg/dL (8.4-10.2); Carbon Dioxide 25 mmol/L (22-30); Chloride 105 mmol/L (98-107); Glucose 100 mg/dL (74-99); Magnesium 1.9 mg/dL (1.6-2.3); Non-African American GFR(CKD) >90 (>60 ml/min/1.73 sqM); Sodium 141 mmol/L (137-145); Total Bilirubin 0.4 mg/dL (0.2-1.3); Total Protein 7.1 g/dL (6.3-8.2)
--- NOTE | 2020-12-08 16:31 | XR ---
EXAMINATION TYPE: XR chest 2V DATE OF EXAM: 12/08/2020 COMPARISON: 09/22/2020 HISTORY: Short of breath TECHNIQUE: 2 views FINDINGS: Heart and mediastinum are normal. Lungs are clear. Diaphragm is normal. Bony thorax appears normal. There are chest leads. IMPRESSION: Normal chest. No change.
[2020-12-08 17:10] LABS: Appearance,Urine Clear (Clear); Bacteria,Urine Few /hpf; Bilirubin,Urine 4+ (Negative); Blood,Urine Negative (Negative); Color,Urine Yellow; Glucose,Urine (UA) Negative (Negative); Ketones,Urine Negative (Negative); Leukocyte Esterase,Urine Trace (Negative); Mucus,Urine Occasional /hpf; Nitrite,Urine Negative (Negative); PH, Urine 5.5 (5.0-8.0); Protein,Urine Negative (Negative); RBC,Urine 1 /hpf (0-5); Specific Gravity,Urine 1.025 (1.001-1.035); Squamous Epithelial Cell,Urine 6 /hpf (0-4); WBC,Urine 5 /hpf (0-5)
[2020-12-08] MEDS ORDERED: NALOXONE 0.4 MG/ML 1 ML VIAL IV PRN (17:32)
[2020-12-08] MEDS ORDERED: ALBUTEROL NEBULIZED 2.5 MG/3 ML INHALATION PRN (19:32)
[2020-12-08] MEDS ORDERED: NITROGLYCERIN SL TABS 0.4 MG TAB SUBLINGUAL PRN (19:32)
[2020-12-08] MEDS ORDERED: ARIPiprazole 5 MG TAB PO SCH (21:00)
[2020-12-08] MEDS: IPRATROPIUM 0.5 MG/2.5 ML NEBU INHALATION SCH (21:02)
[2020-12-08] MEDS: ETODOLAC 400 MG TAB PO SCH (22:08)
[2020-12-08] MEDS: MECLIZINE 12.5 MG TAB PO SCH (22:08)
[2020-12-08] MEDS: NYSTATIN 100,000 UNIT/GM POWD 15 GM TOPICAL SCH (22:09)
[2020-12-08] MEDS: SENNOSIDES 8.6 MG TAB PO SCH (22:10)
[2020-12-08] MEDS: lamoTRIgine 25 MG TAB PO SCH (22:11)
[2020-12-08] MEDS: ATORVASTATIN 20 MG TAB PO SCH (22:11)
[2020-12-09] MEDS: IPRATROPIUM 0.5 MG/2.5 ML NEBU INHALATION SCH ×4 (07:48→21:06)
[2020-12-09] MEDS: FORMOTEROL FUMARATE 20 MCG/2 ML NEBU INHALATION SCH ×2 (07:48→21:06)
[2020-12-09] MEDS: ETODOLAC 400 MG TAB PO SCH (08:19)
[2020-12-09] MEDS: ASPIRIN 81 MG PO SCH (08:19)
[2020-12-09] MEDS: lamoTRIgine 25 MG TAB PO SCH ×2 (08:20→20:58)
[2020-12-09] MEDS: SENNOSIDES 8.6 MG TAB PO SCH ×2 (08:20→20:58)
[2020-12-09] MEDS: MECLIZINE 12.5 MG TAB PO SCH ×3 (08:21→20:58)
[2020-12-09] MEDS ORDERED: NON FORMULARY DRUG (Linaclotide [Linzess] 145 MCG Capsule) PO SCH (09:00)
[2020-12-09] MEDS ORDERED: levETIRAcetam 250 MG TAB PO SCH (09:00)
[2020-12-09] MEDS ORDERED: NON FORMULARY DRUG (Dextroamphetamine/Amphetamine [Adderall] 20 MG Tablet) PO SCH (09:00)
[2020-12-09] MEDS ORDERED: NON FORMULARY DRUG (Vitamin B Complex [Vitamin B Complex] 1 EACH Capsule) PO SCH (09:00)
[2020-12-09] MEDS: NYSTATIN 100,000 UNIT/GM POWD 15 GM TOPICAL SCH ×2 (10:33→20:57)
[2020-12-09] MEDS ORDERED: MAGNESIUM HYDROXIDE 2,400 MG/10 ML CUP PO PRN (13:52)
[2020-12-09] MEDS ORDERED: NA PHOS,M-B/NA PHOS,DI-BA 133 ML ENEMA RECTAL ONE (14:00)
--- NOTE | 2020-12-09 14:01 | HP ---
HISTORY AND PHYSICAL HISTORY OF PRESENT ILLNESS: 49-year-old white female discharged from the hospital yesterday. Went home. She immediately got discharged. She was walking up and into the bathroom at the hospital without dizziness. She went home with dizziness and lightheadedness. As soon as she got home, got dizzy, lightheaded after being cleared by everybody to go home. She went home. She had dizzy and lightheadedness like she was before. She has felt weak. She denies any nausea, vomiting, fever, chills, shortness of breath or chest pain. She came back to the hospital due to significant weakness and dizziness. She will need alf placement because she obviously cannot take care of herself at home. This is like multiple admissions for the same symptoms and cleared by Neurology and Psychiatry every time. HOME MEDICATIONS: Home medications include Abilify 5 mg daily, Voltaren 75 b.i.d., Ecotrin 81 mg daily. Vitamin B complex daily. Nystatin powder topically b.i.d., Lipitor 20 at night. Linzess 145 daily, nitroglycerin sublingual p.r.n., Stiolto 2 puffs daily. ALLERGIES: CAT DANDER AND TOMATO. REVIEW OF SYSTEMS: Fourteen-point review of systems negative except for mentioned in HPI. PAST MEDICAL HISTORY: Chest pain, angina, COPD, CVA, TIA, memory impairment, neurologic disorder, and she has a history of a CVA with right-sided paralysis in 2010 falling down some stairs. She has decreased vision, right eye, hearing or decreased vision, hearing in right ear. Cannot taste or smell. PAST SURGICAL HISTORY: , tonsillectomy, tubal ligation. SOCIAL HISTORY: She has anxiety. Current everyday smoker, and marijuana. FAMILY HISTORY: Mother with cancer. Father with cancer. PHYSICAL EXAM: White female. She looks kind of spaced out, gazing with her eyes. She does gives appropriate answers on psych eval. Fair affect. NEUROLOGIC: She can move all 4 extremities. She has recently had a lumbar epidural last week in the hospital to help her ambulating. RESPIRATORY: Normal lung sounds. HEART: Regular rate and rhythm. ABDOMEN: Soft. EXTREMITIES: 2+ edema bilaterally. NEUROLOGIC: Cranial nerves are intact. Motor strength 5/5. Sensory decreased sensation in the legs. Giving proper verbal and motor responses are responsive. Temperature 97.6, pulse 71, respiratory rate 16 to 18. Blood pressure 120s over 70s, O2 99. EKG shows sinus rhythm. ASSESSMENT: 1. Generalized weakness, dizziness, near syncope do the same workup we have been doing. Cardio monitoring, chest x-ray, EKG. 2. Rule out urinary tract infection. 3. Elevated leukocytosis of unclear etiology for that. 4. Elevated BUN. 5. Possibly some mild dehydration. 6. Negative troponin. 7. Negative lactic acid. 8. Urine is negative. EKG shows no ischemia. ASSESSMENT: 1. Dizziness. 2. Unable to care for self. 3. Near-syncope. Admit again and get neuro psych consult and cardiology. Maybe a tilt test. Please see further orders. MMODL / IJN: [id number] /
[2020-12-09] MEDS: LIDOCAINE 5% PATCH TOPICAL SCH (15:30)
[2020-12-09] MEDS ORDERED: ARIPiprazole 2 MG TAB PO SCH (20:00)
--- NOTE | 2020-12-09 20:14 | P.CNNES ---
History of Present Illness Consult date: 12/09/20 Chief complaint: dizziness History of Present Illness: The patient is a 49-year-old female who is seen in neurologic consultation on December 09, 2020, via teleneurology. The patient was just recently in the hospital for the exact same symptoms. She was worked up by cardiology, neurology and psych. She was cleared for discharge. She reportedly had been up and walking room, without difficulty, prior to her discharge. Patient states that when she got home from the hospital, she attempted to get out of the cab, with use of her walker and became very lightheaded and dizzy. She feels as if she will pass out. Therefore, she returned to the hospital. The patient reports that her dizziness has been worse since her "water pill" was stopped 1-2 weeks ago. She also reports that she has not had her "energy pills" in the past 5 days. In addition, she complains of "spine" pain. The patient denies vertigo. She reports mild dizziness even when she is laying down. The dizziness reportedly gets worse when she is seated and even worse when she stands. The patient lives alone. 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 History of Any Multi-Drug Resistant Organisms: None Reported Past Surgical History: Section, Tonsillectomy, Tubal Ligation Additional Past Surgical History / Comment(s): Past trach/peg tube, pt thinks some kind of brain/skull surgery while comatose in 2010 at [facility]. Past Anesthesia/Blood Transfusion Reactions: No Reported Reaction Smoking Status: Current every day smoker - Past Family History Mother Family Medical History: Cancer Additional Family Medical History / Comment(s): Mother of cancer, pt does not know what type. Father Family Medical History: Cancer Additional Family Medical History / Comment(s): Father is alive and has had 3 different types of cancer but survived them all. Medications and Allergies Home Medications Medication Instructions Recorded Confirmed Type ARIPiprazole [Abilify] 5 mg PO HS 02/29/20 12/08/20 History Diclofenac Sodium [Voltaren] 75 mg PO BID 05/31/20 12/08/20 History Aspirin EC [Ecotrin Low Dose] 81 mg PO DAILY 07/16/20 12/08/20 History Vitamin B Complex 1 cap PO DAILY 07/16/20 12/08/20 History Nystatin 100,000 Unit/gm Powd 1 applic TOPICAL BID 09/13/20 12/08/20 History [Mycostatin Powder] Albuterol Nebulized [Ventolin 2.5 mg INHALATION RT-Q4H PRN ml 09/17/20 12/08/20 Rx Nebulized] Dextroamphetamine/Amphetamine 20 mg PO DAILY #3 tab 09/24/20 12/08/20 Rx [Adderall] Atorvastatin Calcium [Lipitor] 20 mg PO HS 10/13/20 12/08/20 History Linaclotide [Linzess] 145 mcg PO DAILY 12/04/20 12/08/20 History Nitroglycerin Sl Tabs [Nitrostat] 0.4 mg SL Q5M PRN 12/04/20 12/08/20 History Tiotropium Br/Olodaterol HCl 1 puff INHALATION RT-DAILY 12/04/20 12/08/20 History [Stiolto Respimat Inhal [place]] Meclizine [Antivert] 12.5 mg PO TID 30 Days #90 tab 12/08/20 12/08/20 Rx Sennosides [Senokot] 8.6 mg PO BID 30 Days #60 tab 12/08/20 12/08/20 Rx lamoTRIgine [LaMICtal] 25 mg PO BID 15 Days #30 tab 12/08/20 12/08/20 Rx levETIRAcetam [Keppra] 250 mg PO DAILY 15 Days #15 tab 12/08/20 12/08/20 Rx Allergies Allergy/AdvReac Type Severity Reaction Status Date / Time cat dander Allergy Rash/Hives Verified 12/08/20 18:06 tomato Allergy Rash/Hives Verified 12/08/20 18:06 Physical Examination - Vital Signs Vital Signs: Vital Signs Temp Pulse Pulse Resp BP BP Pulse Ox 12/09/20 11:19 68 12/09/20 11:11 68 12/09/20 08:06 64 12/09/20 07:55 72 12/09/20 07:45 68 12/09/20 07:42 17 12/09/20 07:00 98.0 F 63 18 106/73 96 12/09/20 03:00 97.7 F 58 L 18 94/58 96 12/08/20 21:13 72 12/08/20 21:04 72 12/08/20 19:25 98.1 F 62 18 104/68 96 12/08/20 18:10 97.6 F 63 18 119/77 99 12/08/20 17:45 97.6 F 68 16 110/68 96 12/08/20 15:01 97.6 F 71 16 123/72 99 Intake and Output 12/08/20 12/09/20 12/09/20 21:59 06:59 14:59 Intake Total 150 Balance 150 Intake: Oral 150 Other: # Voids Weight Gen.: The patient is reclining in the bed. She is obese. She is in no acute distress. HEENT: Head is atraumatic, normocephalic. Fundus not visualized. There is no scleral icterus. Mucous membranes are moist. Neck: Supple without carotid bruits Heart: Regular rate and rhythm lungs: Clear to auscultation Extremities: Without edema Neurological examination Mental status: The patient is awake, alert and oriented 3. At the beginning of the evaluation the patient's speech is somewhat pressured, fast and somewhat difficult to understand at times. Cranial nerves: Pupils are equal at 3 mm and reactive. Visual newman are full to confrontation. Extraocular movements are intact. There is no nystagmus. Facial sensations intact. There is no facial asymmetry. Hearing is grossly intact. Uvula and palate are midline. Shoulder shrug is symmetric. Tongue protrudes midline. Motor: Right recovery collector strength 5 -/5. Deltoid 4/5. Biceps and triceps 5/5. Left upper extremity strength is 5/5. Right hip flexor 5-/5. Ankle plantar and dorsiflexors 5-/5. Left lower extremity strength 5/5. Coordination: Bilateral finger to nose and heel to rosa testing are intact. Sensation: Grossly intact to light touch throughout. There is no extinction with double simultaneous stimulation. Deep tendon reflexes: 1+/4+ throughout. Supine blood pressure:103/70, heart rate 53 Seated blood pressure:115/74 Standing blood pressure: 106/77, heart rate 82 Results - Laboratory Findings CBC and BMP: 12/08/20 15:50 12/08/20 15:50 Abnormal Lab Findings: Abnormal Labs 12/08/20 12/08/20 12/08/20 15:50 15:50 15:50 WBC 14.6 H Neutrophils # 10.5 H APTT 21.6 L BUN 26 H Glucose 100 H ALT 37 H Urine Bilirubin Ur Leukocyte Esterase Ur Squamous Epith Cells Urine Bacteria Urine Mucus 12/08/20 16:34 WBC Neutrophils # APTT BUN Glucose ALT Urine Bilirubin 4+ H Ur Leukocyte Esterase Trace H Ur Squamous Epith Cells 6 H Urine Bacteria Few H Urine Mucus Occasional H Assessment and Plan Assessment: 1. Reported dizziness, orthostatic vital signs show signs of drop in blood pressure, from a seated to standing 2. At the onset of the evaluation, the patient's speech is rapid and at times, difficult to understand. ? Joana 3. Reported "mood swings" 4. Reported history of traumatic brain injury 5. No history of seizure Plan: 1. Continue with current weaning of Keppra and replacement with Lamictal 2. Continue B12 replacement 3. Recheck orthostatic vitals 4. Consider psychiatry consultation, ? Inpatient psych admission Time with Patient: Greater than 30 (spent 45 minutes with the patient via teleneurology)
[2020-12-09] MEDS: ATORVASTATIN 20 MG TAB PO SCH (20:58)
[2020-12-10] MEDS: IPRATROPIUM 0.5 MG/2.5 ML NEBU INHALATION SCH ×4 (07:17→20:29)
[2020-12-10] MEDS: FORMOTEROL FUMARATE 20 MCG/2 ML NEBU INHALATION SCH ×2 (07:17→20:29)
[2020-12-10] MEDS: SENNOSIDES 8.6 MG TAB PO SCH ×2 (08:40→20:39)
[2020-12-10] MEDS: lamoTRIgine 25 MG TAB PO SCH ×2 (08:40→20:40)
[2020-12-10] MEDS: MECLIZINE 12.5 MG TAB PO SCH ×3 (08:40→20:40)
[2020-12-10] MEDS: ASPIRIN 81 MG PO SCH (08:41)
[2020-12-10] MEDS: LIDOCAINE 5% PATCH TOPICAL SCH (08:41)
[2020-12-10] MEDS ORDERED: SODIUM CHLORIDE 0.9% 1,000 ML IV STA (09:26)
[2020-12-10] MEDS: NYSTATIN 100,000 UNIT/GM POWD 15 GM TOPICAL SCH ×2 (10:39→20:39)
--- NOTE | 2020-12-10 11:52 | ECHOF ---
Referral Reason:c/o lightheadedness MEASUREMENTS -------- HEIGHT: 180.3 cm WEIGHT: 99.8 kg BP: RVIDd: 2.3 cm (< 3.3) IVSd: 1.2 cm (0.6 - 1.1) LVIDd: 4.7 cm (3.9 - 5.3) LVPWd: 1.3 cm (0.6 - 1.1) IVSs: 1.6 cm LVIDs: 3.4 cm LVPWs: 1.4 cm LAESV Index (A-L): 16.37 ml/m Ao Diam: 3.0 cm (2.0 - 3.7) AV Cusp: 2.0 cm (1.5 - 2.6) LA Diam: 2.8 cm (2.7 - 3.8) MV EXCURSION: 15.618 mm (> 18.000) MV EF SLOPE: 43 mm/s (70 - 150) EPSS: 2.3 cm MV E Hardik: 0.69 m/s MV DecT: 178 ms MV A Hardik: 0.90 m/s MV E/A Ratio: 0.77 AR PHT: 580 ms RAP: 5.00 mmHg RVSP: 15.61 mmHg FINDINGS -------- This was a technically good study. The left ventricular size is normal. There is mild concentric left ventricular hypertrophy. Overa ll left ventricular systolic function is normal with, an EF between 55 - 60 %. The diastolic fillin g pattern is normal for the age of the patient 9.92. The right ventricle is normal in size. The left atrial size is normal. Normal LA size by volume 22+/-6 ml/m2. The right atrial size is normal. The aortic valve is trileaflet and appears structurally normal. There is mild aortic regurgitation. The mitral valve is normal. There is trace mitral regurgitation. The tricuspid valve appears structurally normal. Trace tricuspid regurgitation present. Right silvio tricular systolic pressure is normal at < 35 mmHg. There is no pulmonic regurgitation present. The aortic root size is normal. IVC Not well visulized. There is no pericardial effusion. CONCLUSIONS -------- 1. The left ventricular size is normal. 2. There is mild concentric left ventricular hypertrophy. 3. Overall left ventricular systolic function is normal with, an EF between 55 - 60 %. 4. The diastolic filling pattern is normal for the age of the patient 9.92 5. There is mild aortic regurgitation. 6. There is trace mitral regurgitation. 7. Trace tricuspid regurgitation present. 8. There is no pericardial effusion. TOUR MANAGER: Carlota Wallace RDCS
--- NOTE | 2020-12-10 13:29 | P.CRDCN ---
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 She does not follow with a program writer. We have been asked to see in consultation for dizziness. Patient states she was discharged on 12/09, she took a cab home from the hospital when getting out of the cab and walking inside her home with her walker she felt lightheaded and felt like she may pass out. She sat down, her symptoms improved, and she returned to the hospital. She denies dizziness, vertigo or feeling as if the room is spinning. She states this has been going on for 2 months. She denies chest pain, palpitations, shortness of breath, lower extremity edema, fatigue, new weakness. She denies history of [place], Diabetes. She denies symptoms of orthopnea or PND. She does currently smoke 1-2 cigarettes a day. She denies alcohol or illicit drugs use. Previous hospital admission (12/05-12/08/20), Patient was experiencing low back pain and radiculitis symptoms unresponsive to conservative treatment and underwent a Lumbar epidural steroid injection under fluoroscopic guidance at the L5-S1 level and right sacroiliac joint steroid injection under fluoroscopy guidance on 12/06. On discharge patient was cleared by Neurology and Psych. She was started back on Antivert (previously used scopolamine patches did not improve her dizziness). She was started on Lamictal and was being titrated off Keppra. Patient is seen and examined at bedside, no apparent distress. Tearful about having to possibly go to a senior care. Denies headache, chest pain, palpitations, dizziness, lightheadedness, shortness of breath. Laboratory data reviewed, WBC 14.6, Hgb 13.3, sodium 141, potassium 4.2,creatinine 0.55, magnesium 1.9,Vital signs BP 98/65 HR 50, SpO2 99% on room air, Afebrile. Current home cardiac medications include atorvastatin 20mg daily, aspirin 81mg daily. DIAGNOSTICS EKG reveals sinus rhythm with no significant change from prior EKGs Last Stress test- Nuris 08/2020- negative for reversible ischemia. LV EF 59% Telemetry tracings indicate sinus mechanism. Chest xray No acute cardiopulmonary process. REVIEW OF SYSTEMS At the time of my exam: CONSTITUTIONAL: Denies fever or chills. CARDIOVASCULAR: Denies chest pain, shortness of breath, orthopnea, PND or p alpitations. RESPIRATORY: Denies cough. GASTROINTESTINAL: Denies abdominal pain, diarrhea, constipation, nausea or vomiting. MUSCULOSKELETAL: Denies myalgias. NEUROLOGIC: +dizzness +lightheadedness. +right sided weakness. Denies numbness, tingling, headache or new weakness. ENDOCRINE: Denies fatigue, weight change, polydipsia or polyurina. GENITOURINARY: Denies burning, hematuria or urgency with micturation. HEMATOLOGIC: Denies history of anemia or bleeding. PHYSICAL EXAMINATION CONSTITUTIONAL: No apparent distress. HEENT: Head is normocephalic. Pupils are equal, round. Sclerae anicteric. Mucous membranes of the mouth are moist. No JVD. No carotid bruit. CHEST EXAMINATION: Lungs are clear to auscultation. No chest wall tenderness is noted on palpation or with deep breathing. HEART EXAMINATION: Regular rate and rhythm. S1, S2 heard. No murmurs, gallops or rub. ABDOMEN: Soft, nontender. Positive bowel sounds. EXTREMITIES: 2+ peripheral pulses, no lower extremity edema and no calf tenderness. SKIN: NEUROLOGIC EXAMINATION: Patient is awake, alert and oriented x3. ASSESSMENT -Recurrent dizziness - unclear etiology. Possibly some mild dehydration. Previous stress test negative for reversible ischemia, no known history of irregular rhythm. -Leukocytosis- unclear etiology. patient recently underwent lumbar epidural injection and right sacroiliac joint steriod injection 12/06/20 -History of Hypertension- hypotensive this admission -COPD -History of CVA with right sided residual -Nicontine Dependence PLAN -Will obtain 2D echo -Orthostatic vital signs -Continue cardiac telemetry -Start 0.9NaCl at 75mL/hr -Start midodrine 5mg TID -Will continue to follow patient for further recommendations. Nurse Practitioner note has been reviewed, I agree with a documented findings and plan of care. Patient was seen and examined. 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 History of Any Multi-Drug Resistant Organisms: None Reported Past Surgical History: Section, Tonsillectomy, Tubal Ligation Additional Past Surgical History / Comment(s): Past trach/peg tube, pt thinks some kind of brain/skull surgery while comatose in 2010 at [facility]. Past Anesthesia/Blood Transfusion Reactions: No Reported Reaction Smoking Status: Current every day smoker - Past Family History Mother Family Medical History: Cancer Additional Family Medical History / Comment(s): Mother of cancer, pt does not know what type. Father Family Medical History: Cancer Additional Family Medical History / Comment(s): Father is alive and has had 3 different types of cancer but survived them all. Medications and Allergies Home Medications Medication Instructions Recorded Confirmed Type ARIPiprazole [Abilify] 5 mg PO HS 02/29/20 12/08/20 History Diclofenac Sodium [Voltaren] 75 mg PO BID 05/31/20 12/08/20 History Aspirin EC [Ecotrin Low Dose] 81 mg PO DAILY 07/16/20 12/08/20 History Vitamin B Complex 1 cap PO DAILY 07/16/20 12/08/20 History Nystatin 100,000 Unit/gm Powd 1 applic TOPICAL BID 09/13/20 12/08/20 History [Mycostatin Powder] Albuterol Nebulized [Ventolin 2.5 mg INHALATION RT-Q4H PRN ml 09/17/20 12/08/20 Rx Nebulized] Dextroamphetamine/Amphetamine 20 mg PO DAILY #3 tab 09/24/20 12/08/20 Rx [Adderall] Atorvastatin Calcium [Lipitor] 20 mg PO HS 10/13/20 12/08/20 History Linaclotide [Linzess] 145 mcg PO DAILY 12/04/20 12/08/20 History Nitroglycerin Sl Tabs [Nitrostat] 0.4 mg SL Q5M PRN 12/04/20 12/08/20 History Tiotropium Br/Olodaterol HCl 1 puff INHALATION RT-DAILY 12/04/20 12/08/20 History [Stiolto Respimat Inhal [place]] Meclizine [Antivert] 12.5 mg PO TID 30 Days #90 tab 12/08/20 12/08/20 Rx Sennosides [Senokot] 8.6 mg PO BID 30 Days #60 tab 12/08/20 12/08/20 Rx lamoTRIgine [LaMICtal] 25 mg PO BID 15 Days #30 tab 12/08/20 12/08/20 Rx levETIRAcetam [Keppra] 250 mg PO DAILY 15 Days #15 tab 12/08/20 12/08/20 Rx Allergies Allergy/AdvReac Type Severity Reaction Status Date / Time cat dander Allergy Rash/Hives Verified 12/08/20 18:06 tomato Allergy Rash/Hives Verified 12/08/20 18:06 Physical Exam Vitals: Vital Signs Temp Pulse Pulse Pulse Pulse Pulse Resp 12/10/20 07:39 52 L 12/10/20 07:28 52 L 12/10/20 07:27 52 L 12/10/20 07:18 52 L 12/10/20 07:13 50 L 16 12/10/20 07:00 97.4 F L 73 16 12/10/20 02:00 98.3 F 50 L 16 12/09/20 21:27 67 12/09/20 21:07 67 12/09/20 20:00 98.0 F 62 81 84 53 L 16 12/09/20 15:31 66 12/09/20 15:20 70 12/09/20 15:00 97.8 F 97 81 18 12/09/20 13:52 67 84 53 L 12/09/20 11:19 68 12/09/20 11:11 68 12/09/20 08:06 64 12/09/20 07:55 72 BP BP BP BP Pulse Ox 12/10/20 07:39 12/10/20 07:28 12/10/20 07:27 12/10/20 07:18 12/10/20 07:13 12/10/20 07:00 98/65 99 12/10/20 02:00 99/53 99 12/09/20 21:27 12/09/20 21:07 12/09/20 20:00 99/61 95 12/09/20 15:31 12/09/20 15:20 12/09/20 15:00 103/70 97 12/09/20 13:52 115/74 106/77 103/70 12/09/20 11:19 12/09/20 11:11 12/09/20 08:06 12/09/20 07:55 Intake and Output 12/09/20 12/10/20 12/10/20 22:59 06:59 14:59 Other: Voiding Method Toilet Toilet Toilet # Voids 0 1 1 Results 12/08/20 15:50 12/08/20 15:50 Current Medications Generic Name Dose Route Start Last Admin Trade Name Freq PRN Reason Stop Dose Admin Albuterol Sulfate 2.5 mg 12/08/20 19:32 Albuterol Nebulized 2.5 Mg/3 Ml INHALATION RT-Q4H PRN Shortness Of Breath Aripiprazole 2 mg 12/09/20 20:00 12/09/20 20:58 Aripiprazole 2 Mg Tab PO 2 mg DAILY@2000 VILLA Administration Aspirin 81 mg 12/09/20 09:00 12/09/20 08:19 Aspirin 81 Mg PO 81 mg DAILY VILLA Administration Atorvastatin Calcium 20 mg 12/08/20 21:00 12/09/20 20:58 Atorvastatin 20 Mg Tab PO 20 mg HS VILLA Administration Formoterol Fumarate 20 mcg 12/09/20 08:00 12/10/20 07:17 Formoterol Fumarate 20 Mcg/2 Ml Nebu INHALATION 20 mcg RT-BID VILLA Administration Ipratropium [place] 0.5 mg 12/08/20 20:00 12/10/20 07:17 Ipratropium 0.5 Mg/2.5 Ml Nebu INHALATION 0.5 mg RT-QID VILLA Administration Lamotrigine 25 mg 12/08/20 21:00 12/09/20 20:58 Lamotrigine 25 Mg Tab PO 25 mg BID VILLA Administration Lidocaine 1 patch 12/09/20 14:00 12/09/20 15:30 Lidocaine 5% Patch TOPICAL 1 patch DAILY VILLA Administration Magnesium Hydroxide 2,400 mg 12/09/20 13:52 Magnesium Hydroxide 2,400 Mg/10 Ml Cup PO BID PRN Constipation Meclizine HCl 12.5 mg 12/08/20 22:00 12/09/20 20:58 Meclizine 12.5 Mg Tab PO 12.5 mg TID VILLA Administration Naloxone HCl 0.2 mg 12/08/20 17:32 Naloxone 0.4 Mg/Ml 1 Ml Vial IV Q2M PRN Opioid Reversal Nitroglycerin 0.4 mg 12/08/20 19:32 Nitroglycerin Sl Tabs 0.4 Mg Tab SUBLINGUAL Q5M PRN Chest Pain Nystatin 1 applic 12/08/20 21:00 12/09/20 20:57 Nystatin 100,000 Unit/Gm Powd 15 Gm TOPICAL 1 applic BID VILLA Administration Senna 8.6 mg 12/08/20 21:00 12/09/20 20:58 Sennosides 8.6 Mg Tab PO 8.6 mg BID VILLA Administration Intake and Output 12/09/20 12/10/20 12/10/20 22:59 06:59 14:59 Other: Voiding Method Toilet Toilet Toilet # Voids 0 1 1 12/08/20 15:50 12/08/20 15:50
--- NOTE | 2020-12-10 13:36 | P.CN ---
Psychiatric Consult - . Consult date: 12/10/20 Consult:: IDENTIFYING DATA: This patient is a , on SSDI, 49-year-old female with a significant history of head trauma and CVA who presented to the emergency Department for dizziness. REASON FOR CONSULT: Rule out bipolar disorder HISTORY OF PRESENT ILLNESS: The patient was most recently discharged from the hospital on 12/08/2020 but returned to the emergency department for the same complaint of dizziness and weakness. During the previous hospital stay, the patient was worked up by neurology, and cardiology and was cleared for discharge. Psychiatry has been consulted for "anne." The patient was evaluated by neurology who expressed concern that the patient was endorsing mood swings, as well as pressured speech that was at times difficult to understand. The patient was last evaluated by psychiatry by this provider on 12/04/2020. At this time, the patient continues to deny any significant symptoms of psychiatric pathology. She is not reporting any significant symptoms of mood swings, increased goal directed activity, impulsivity, periods of excessive energy, grandiosity, racing thoughts, or increased risk taking behavior. Currently at this time, the patient is not displaying any significant signs or symptoms of pressured speech. She is not reporting any auditory or visualizations. She is denying any paranoia or delusions. During her previous hospital stay, psychiatry was consulted for evaluation of hallucinations as the patient was complaining that she was seeing ants in her apartment. This is a complaint that was brought up with [facility] during her previous outpatient appointment. Furthermore, the patient is not reporting any visualization of ants or other insects while in the hospital. This does not constitute a visual hallucination or delusion. The patient is alert and oriented in all spheres. Her primary complaint continues to be that of dizziness and occasional weakness. She continues to be fixated on receiving her "energy pills" and this is determined to be her Adderall. PAST PSYCHIATRIC HISTORY: Patient has a a history of depression. The patient is currently on a regimen of Abilify and Adderall. The patient has had 4 prior inpatient psychiatric admissions. She was admitted to 3 [facility] in 2011, 2012, and twice in 2013. She is currently open with [facility]. Patient denies any history of suicide attempts in the past. PAST MEDICAL HISTORY: Past Medical History: Chest Pain / Angina, COPD, CVA/TIA, Memory Impairment, Neurologic Disorder Additional Past Medical History / Comment(s): Pt has history of brain injury following fall down flight of stairs in 2011 and was comatose for 3 months, then when she regained consciousness she had a CVA with R sided paralysis/parasthesia/decreased vision R eye/decreased hearing R ear/loss of sensation r inside of mouth-takes care with what food she eats/no longer has feelings of hunger/cannot taste or smell, pt denies ever having a seizure, hypothyroid, occasional pedal edema, occasional headaches. History of Any Multi-Drug Resistant Organisms: None Reported Past Surgical History: Section, Tonsillectomy, Tubal Ligation Additional Past Surgical History / Comment(s): Past trach/peg tube, pt thinks some kind of brain/skull surgery while comatose in 2010 at [facility]. ALLERGIES: Cat dander, tomato CHEMICAL DEPENDENCY HISTORY: The patient reports that she smokes 2 cigarettes per day. She denies any alcohol, marijuana, or illicit drug use. She denies any prior rehabilitation for substance use disorder. FAMILY PSYCHIATRIC/SUBSTANCE USE HISTORY: The patient's maternal uncle and her both completed suicide. SOCIAL HISTORY: Patient was born and raised in [place]. She reports a 12th grade education. Prior to her injury in 2010, the patient worked for the [place] [employer]. She is currently receiving SSDI. She has 2 adult daughters ages 25 and 27 and has multiple grandchildren. She currently lives alone in [place]. MENTAL STATUS EXAM: General Appearance: Patient appears to be stated age is alert, pleasant, and cooperative. Patient appears to have fair hygiene and grooming wearing hospital gown with fair eye contact. Obese body habitus. She is wearing glasses and has multiple tattoos. Behavior: Patient is calmly lying in bed without any agitated behavior. Psychomotor activity appears normal. Eye contact is appropriate. Speech: Patient's speech is fluent and nonpressured. Normal rate, tone, volume and fluency. Mood/Affect: Patient reports their mood is "feeling a little dizzy." Affect is otherwise euthymic with appropriate range. Suicidality/Homicidality: Patient denies having any suicidal or homicidal ideation intent or plan. Perceptions: Patient denies any visual hallucinations and denies any auditory hallucinations Though content/process: There is no evidence of any delusional thought content and thought process is linear and goal-directed. Memory and concentration: AOX3, grossly intact for the purposes of this session. Can spell "WORLD" backwards Judgment and insight: Good IMPRESSIONS: -Major depressive disorder The patient has been diagnosed with major depressive disorder and currently follows with [facility] regularly. Currently she is not displaying any manic or psychotic behavior or symptoms. As per discussion with the patient's nursing staff, the patient has been calm and cooperative and not displaying any bizarre behaviors or saying anything that would cause concern. -Dizziness Orthostatic vitals WNL. Do not suspect abilify as contributer for weakness/dizziness. Abilify is scheduled at bedtime and is at a low dose. Agree with Neurology - If concern for polypharmacy, consider monotherapy with lamictal and discontinuation of keppra. PLAN: -At this time patient DOES NOT meet criteria for inpatient psychiatric admission. -Continue B12 replacement -Delirium precautions recommended with patient including - avoiding use of narcotics and BANQUET STEWARD sedatives, limit anticholinergic medications when possible, frequent re-orientation, minimize use of restraints, open window shades during the day and close them at night -Would recommend the following medication changes/additions: The patient is currently prescribed Midodrine and Antivert for dizziness. We will increase the patient's Abilify back to 5 mg by mouth daily. At this dose, it is unlikely that this medication is the suspect to cause the patient's complaints of weakness and dizziness. May continue Adderall in the outpatient setting. The patient does have a significant history of head trauma. -Psychiatry will sign off at this point, please contact with any questions. -Recommend outpatient follow-up. She is also scheduled for medication review with Dr. Raygoza at [facility] on 12/27/2020. 12/10/20 13:24
[2020-12-10] MEDS: MIDODRINE 5 MG TAB PO SCH ×2 (14:09→16:58)
--- NOTE | 2020-12-10 18:51 | PN ---
PROGRESS NOTE This is a 49-year-old white female who comes to the hospital with dizziness. Psychiatry saw her and will not take her to the psych garcia. Left her meds the same. Neurology is unsure what to do with her. Cardiology is working her up. Echo appears fairly normal. CARDIOVASCULAR: S1, S2. LUNGS: Clear. GI: Soft. PSYCH: Anxious and crying. Anxiety of a significant nature. Discussed the case with her dad, who thinks that she is just claustrophobic and having anxiety, panic attacks at home. ASSESSMENT: 1. Recurrent dizziness, unclear etiology. Orthostatics are negative. Labs are all reviewed. 2. Mild dehydration. Stress test was negative in the past. 1. Leukocytosis secondary to possible recent steroid injection. 2. Hypertension. 3. Chronic obstructive pulmonary disease. 4. History of cerebrovascular accident. 5. Nicotine addiction. Will wait for further recommendations from multiple specialists. I have ordered an ENT consult; not sure if he will see her here, but she has failed all kinds of inner ear vertigo type medications, anyway. She does not drink enough water. She needs to eat and drink a little bit better. Prognosis guarded. MMODL / IJN: [id number] /
[2020-12-10] MEDS: ARIPiprazole 5 MG TAB PO SCH (20:39)
[2020-12-10] MEDS: ATORVASTATIN 20 MG TAB PO SCH (20:39)
[2020-12-11] MEDS: IPRATROPIUM 0.5 MG/2.5 ML NEBU INHALATION SCH ×4 (07:07→21:29)
[2020-12-11] MEDS: FORMOTEROL FUMARATE 20 MCG/2 ML NEBU INHALATION SCH ×2 (07:07→21:29)
[2020-12-11] MEDS: lamoTRIgine 25 MG TAB PO SCH ×3 (08:02→21:35)
[2020-12-11] MEDS: MIDODRINE 5 MG TAB PO SCH ×3 (08:02→17:38)
[2020-12-11] MEDS: SENNOSIDES 8.6 MG TAB PO SCH ×2 (08:02→20:29)
[2020-12-11] MEDS: MECLIZINE 12.5 MG TAB PO SCH ×3 (08:02→20:30)
[2020-12-11] MEDS: ASPIRIN 81 MG PO SCH (08:03)
[2020-12-11] MEDS: LIDOCAINE 5% PATCH TOPICAL SCH (08:04)
[2020-12-11] MEDS: NYSTATIN 100,000 UNIT/GM POWD 15 GM TOPICAL SCH ×2 (08:07→20:30)
[2020-12-11] MEDS: SODIUM CHLORIDE 0.9% 250 ML IV SCH ×3 (09:11→09:49)
[2020-12-11] MEDS: SODIUM CHLORIDE 0.9% 1,000 ML IV SCH ×2 (09:11→20:37)
[2020-12-11 09:21] LABS: Basophils # (A) 0.06 X 10*3/uL (0.00-0.10); Basophils % (A) 0.5 %; Eosinophils # (A) 0.13 X 10*3/uL (0.04-0.35); Eosinophils % (A) 1.1 %; HGB 12.9 g/dL (12.0-15.0); Lymphocytes # (A) 3.91 X 10*3/uL (0.90-5.00); Lymphocytes % (A) 31.6 %; MCH 30.3 pg (27.0-32.0); MCHC 32.3 g/dL (32.0-37.0); MCV 93.9 fL (80.0-97.0); Mean Platelet Volume 11.4 fL (9.5-12.2); Monocytes # (A) 0.85 X 10*3/uL (0.20-1.00); Monocytes % (A) 6.9 %; Neutrophils # (A) 7.39 X 10*3/uL (1.80-7.70); Neutrophils % (A) 59.7 %; Platelet Count 241 X 10*3/uL (140-440); RBC 4.26 X 10*6/uL (4.10-5.20); RDW 13.3 % (11.5-14.5); WBC 12.37 X 10*3/uL (4.50-10.00)
--- NOTE | 2020-12-11 10:30 | P.PN ---
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 She does not follow with a public bath attendant. We have been asked to see in consultation for dizziness. Patient states she was discharged on 12/09, she took a cab home from the hospital when getting out of the cab and walking inside her home with her walker she felt lightheaded and felt like she may pass out. She sat down, her symptoms improved, and she returned to the hospital. She denies dizziness, vertigo or feeling as if the room is spinning. She states this has been going on for 2 months. She denies chest pain, palpitations, shortness of breath, lower extremity edema, fatigue, new weakness. She denies history of [place], Diabetes. She denies symptoms of orthopnea or PND. She does currently smoke 1-2 cigarettes a day. She denies alcohol or illicit drugs use. Previous hospital admission (12/05-12/08/20), Patient was experiencing low back pain and radiculitis symptoms unresponsive to conservative treatment and underwent a Lumbar epidural steroid injection under fluoroscopic guidance at the L5-S1 level and right sacroiliac joint steroid injection under fluoroscopy guidance on 12/06. On discharge patient was cleared by Neurology and Psych. She was started back on Antivert (previously used scopolamine patches did not improve her dizziness). She was started on Lamictal and was being titrated off Keppra. Patient is seen and examined at bedside, no apparent distress. Tearful about having to possibly go to a alf. Denies headache, chest pain, palpitations, dizziness, lightheadedness, shortness of breath. Laboratory data r gamawed, WBC 14.6, Hgb 13.3, sodium 141, potassium 4.2,creatinine 0.55, magnesium 1.9,Vital signs BP 98/65 HR 50, SpO2 99% on room air, Afebrile. 12/11 Patient seen and examined. IV fluids were ordered yesterday however were not given. Orthostatics were checked without significant drop in blood pressure. She admits she still feels somewhat lightheaded sitting in bed and also having a headache. Denies any chest pain or pressure. She states she feels somewhat better than yesterday. She was started on Midodrin for borderline low blood pressures yesterday. REVIEW OF SYSTEMS At the time of my exam: CONSTITUTIONAL: Denies fever or chills. CARDIOVASCULAR: Denies chest pain, shortness of breath, orthopnea, PND or palpitations. RESPIRATORY: Denies cough. GASTROINTESTINAL: Denies abdominal pain, diarrhea, constipation, nausea or vomiting. MUSCULOSKELETAL: Denies myalgias. NEUROLOGIC: +dizzness +lightheadedness. +right sided weakness. Denies numbness, tingling, headache or new weakness. ENDOCRINE: Denies fatigue, weight change, polydipsia or polyurina. GENITOURINARY: Denies burning, hematuria or urgency with micturation. HEMATOLOGIC: Denies history of anemia or bleeding. PHYSICAL EXAMINATION CONSTITUTIONAL: No apparent distress. HEENT: Head is normocephalic. Pupils are equal, round. Sclerae anicteric. Mucous membranes of the mouth are moist. No JVD. No carotid bruit. CHEST EXAMINATION: Lungs are clear to auscultation. No chest wall tenderness is noted on palpation or with deep breathing. HEART EXAMINATION: Regular rate and rhythm. S1, S2 heard. No murmurs, gallops or rub. ABDOMEN: Soft, nontender. Positive bowel sounds. EXTREMITIES: 2+ peripheral pulses, no lower extremity edema and no calf tenderness. SKIN: NEUROLOGIC EXAMINATION: Patient is awake, alert and oriented x3. ASSESSMENT -Recurrent dizziness - unclear etiology. Possibly some mild dehydration. Has be en symptomatic while in hospital with normal sinus rhythm, do not suspect arrhytmogenic. -Leukocytosis- unclear etiology. patient recently underwent lumbar epidural injection and right sacroiliac joint steriod injection 12/06/20 -History of Hypertension- borderline hypotensive this admission -COPD -History of CVA with right sided residual -Nicontine Dependence PLAN Echocardiogram reviewed with normal ejection fraction 55-60% without significant valvular disease. Continue gentle IV fluid hydration. Monitor response of Midodrin. Further recommendations from neurology and psychiatry appreciated. Orthostatic blood pressures yesterday were negative. May be a perfusional issue however also may be some degree of disequilibrium. Continue to monitor. Objective - Vital Signs Vital signs: Vital Signs Temp 98.1 F 12/11/20 07:26 Pulse 61 12/11/20 08:00 Resp 18 12/11/20 08:00 BP 107/69 12/11/20 07:26 Pulse Ox 97 12/11/20 07:26 Intake & Output 12/10/20 12/11/20 12/11/20 18:59 06:59 18:59 Intake Total 487 240 Balance 487 240 Intake: Oral 487 240 Other: Voiding Method Toilet Toilet Toilet # Voids 2 2 - Labs CBC & Chem 7: 12/11/20 04:23 12/08/20 15:50 Labs: Abnormal Lab Results - Last 24 Hours (Table) 12/11/20 Range/Units 04:23 WBC 12.37 H (4.50-10.00) X 10*3/uL
[2020-12-11 10:31] LABS: Albumin 4.4 g/dL (3.80-4.90); Albumin/Globulin Ratio 2.32 (1.60-3.17); Anion Gap 10.8 mmol/L (4.00-12.00); BUN/Creat Ratio 38.33 Ratio (12.00-20.00); Calcium 9.2 mg/dL (8.7-10.3); Carbon Dioxide 22.2 mmol/L (21.6-31.8); Globulin 1.9 g/dL (1.6-3.3); Potassium 4.7 mmol/L (3.5-5.5); Total Bilirubin 0.2 mg/dL (0.3-1.2); Total Protein 6.3 g/dL (6.2-8.2)
--- NOTE | 2020-12-11 19:46 | PN ---
PROGRESS NOTE This is a 49-year-old white female who has prolonged dizziness. She has had a neurologic workup. Discussed with her getting an eye physician exam as an outpatient; possibly her vision has something to do with her dizziness. She was started on ProAmatine for orthostatic hypotension by Neurology today. She has agreed to go to a long-term, as she still gets dizzy standing up and taking a shower by herself. Neurology cleared her for discharge. Cardiology has cleared her for discharge. Psych cleared her for discharge. Possible discharge home or to a rehab center due to extreme weakness and imbalance. She says she will go there for at least a week. Some mild dehydration is possibly one of the symptoms leukocytosis secondary to lumbar epidural injection 3 weeks ago, COPD, hypertension, prior CVA, right-sided weakness, nicotine dependence, quit smoking cessation. Go to rehab possibly tomorrow at [facility]. DAIJA / SALVATORE: [id number] /
[2020-12-11] MEDS: ARIPiprazole 5 MG TAB PO SCH (20:29)
[2020-12-11] MEDS: ATORVASTATIN 20 MG TAB PO SCH (20:29)
--- NOTE | 2020-12-11 21:51 | DS ---
DISCHARGE SUMMARY DISCHARGE MEDICATIONS: 1. Lidoderm 5% patch topically daily. 2. ProAmatine 5 mg t.i.d. 3. Abilify 5 mg at night. 4. Aspirin 81 mg daily. 5. Vitamin B complex daily. 6. Nystatin powder topically b.i.d. 7. Ventolin nebulizer 2.5 mg q.4 hours p.r.n. 8. Adderall 20 mg daily. 9. Lipitor 20 daily. 10.Stiolto 2 puffs daily. 11.Nitroglycerin sublingually p.r.n. 12.Antivert 12.5 t.i.d. 13.Lamictal 25 b.i.d. 14.Senokot 8.6 b.i.d. CONDITION: Stable. PROGNOSIS: Guarded. Ambulate as tolerated. Patient has had chronic dizziness, worked up by Cardiology, Pulmonology and Neurology multiple times, failed inner ear medications. I suspect some of her imbalance is due to her vision. 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 She was cleared by Cardiology and Neurology for discharge. She will need rehab due to dizziness in the shower. She is having no other difficulties. She will follow up in the skilled nursing with Dr. Chris Bocanegra. Regular diet. Ambulate as tolerated. Physical therapy. Condition stable. Prognosis guarded. MMODL / IJN: [id number] /
[2020-12-12] MEDS: IPRATROPIUM 0.5 MG/2.5 ML NEBU INHALATION SCH ×2 (07:44→11:06)
[2020-12-12] MEDS: FORMOTEROL FUMARATE 20 MCG/2 ML NEBU INHALATION SCH (07:44)
[2020-12-12 07:50] VITALS: BP 101/67; PULSE 58; RESP 20; TEMP 98.3
[2020-12-12] MEDS: LIDOCAINE 5% PATCH TOPICAL SCH (09:19)
[2020-12-12] MEDS: ASPIRIN 81 MG PO SCH (09:19)
[2020-12-12] MEDS: SENNOSIDES 8.6 MG TAB PO SCH (09:19)
[2020-12-12] MEDS: MECLIZINE 12.5 MG TAB PO SCH (09:20)
[2020-12-12] MEDS: MIDODRINE 5 MG TAB PO SCH (09:20)
[2020-12-12] MEDS: NYSTATIN 100,000 UNIT/GM POWD 15 GM TOPICAL SCH (09:21)
[2020-12-12] MEDS: SODIUM CHLORIDE 0.9% 1,000 ML IV SCH (09:21)
[2020-12-12] MEDS: lamoTRIgine 25 MG TAB PO SCH (11:53)
--- NOTE | 2020-12-12 12:35 | P.PN ---
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 We have been asked to see in consultation for dizziness. Patient states she was discharged on 12/09, she took a cab home from the hospital when getting out of the cab and walking inside her home with her walker she felt lightheaded and felt like she may pass out. She sat down, her symptoms improved, and she returned to the hospital. She denies dizziness, vertigo or feeling as if the room is spinning. She states this has been going on for 2 months. She denies chest pain, palpitations, shortness of breath, lower extremity edema, fatigue, new weakness. She denies history of ND, Diabetes. She denies symptoms of orthopnea or PND. She does currently smoke 1-2 cigarettes a day. She denies alcohol or illicit drugs use. Previous hospital admission (12/05-12/08/20), Patient was experiencing low back pain and radiculitis symptoms unresponsive to conservative treatment and underwent a Lumbar epidural steroid injection under fluoroscopic guidance at the L5-S1 level and right sacroiliac joint steroid injection under fluoroscopy guidance on 12/06. On discharge patient was cleared by Neurology and Psych. She was started back on Antivert (previously used scopolamine patches did not improve her dizziness). She was started on Lamictal and was being titrated off Keppra. Patient is seen and examined at bedside, no apparent distress. Tearful about having to possibly go to a usp. Denies headache, chest pain, palpitations, dizziness, lightheadedness, shortness of breath. Laboratory data r gamawed, WBC 14.6, Hgb 13.3, sodium 141, potassium 4.2,creatinine 0.55, magnesium 1.9,Vital signs BP 98/65 HR 50, SpO2 99% on room air, Afebrile. 12/12 Patient seen and examined. IV fluids were given yesterday and patient feeling somewhat better today. Still with some lightheadedness. No SOB. REVIEW OF SYSTEMS At the time of my exam: CONSTITUTIONAL: Denies fever or chills. CARDIOVASCULAR: Denies chest pain, shortness of breath, orthopnea, PND or palpitations. RESPIRATORY: Denies cough. GASTROINTESTINAL: Denies abdominal pain, diarrhea, constipation, nausea or vomiting. MUSCULOSKELETAL: Denies myalgias. NEUROLOGIC: +dizzness +lightheadedness. +right sided weakness. Denies numbness, tingling, headache or new weakness. ENDOCRINE: Denies fatigue, weight change, polydipsia or polyurina. GENITOURINARY: Denies burning, hematuria or urgency with micturation. HEMATOLOGIC: Denies history of anemia or bleeding. PHYSICAL EXAMINATION CONSTITUTIONAL: No apparent distress. HEENT: Head is normocephalic. Pupils are equal, round. Sclerae anicteric. Mucous membranes of the mouth are moist. No JVD. No carotid bruit. CHEST EXAMINATION: Lungs are clear to auscultation. No chest wall tenderness is noted on palpation or with deep breathing. HEART EXAMINATION: Regular rate and rhythm. S1, S2 heard. No murmurs, gallops or rub. ABDOMEN: Soft, nontender. Positive bowel sounds. EXTREMITIES: 2+ peripheral pulses, no lower extremity edema and no calf tenderness. SKIN: NEUROLOGIC EXAMINATION: Patient is awake, alert and oriented x3. ASSESSMENT -Recurrent dizziness - unclear etiology. Possibly some mild dehydration. Has been symptomatic while in hospital with normal sinus rhythm, do not suspect arrhytmogenic. -Leukocytosis- unclear etiology. patient recently underwent lumbar epidural i njection and right sacroiliac joint steriod injection 12/06/20 -History of Hypertension- borderline hypotensive this admission -COPD -History of CVA with right sided residual -Nicontine Dependence PLAN OK for discharge from cardiology standpoint. Likely will need rehab. Would trial Midodrine and likely come off in a few weeks if feeling better and blood pressures stable. Please call with questions. Objective - Vital Signs Vital signs: Vital Signs Temp 98.3 F 12/12/20 07:02 Pulse 58 L 12/12/20 08:00 Resp 20 12/12/20 08:00 BP 101/67 12/12/20 07:02 Pulse Ox 97 12/12/20 07:02 Intake & Output 12/11/20 12/12/20 12/12/20 18:59 06:59 18:59 Intake Total 780 240 Balance 780 240 Intake: Oral 780 240 Other: Voiding Method Toilet Toilet Toilet # Voids 3 2 # Bowel Movements 0 - Labs CBC & Chem 7: 12/11/20 04:23 12/11/20 04:23
== END 2020-12-12 13:32 | disposition home or self-care (01) | DRG 641 ==
LOC: EC 14:59 → 6NMEDSUR 17:32 → OBSVTOIN 12-10 12:13 → 6NMEDSUR 12-10 20:23
PROVIDERS: ADMIT Family Medicine; ATTEND Family Medicine
DX: E86.0 Dehydration (principal); I69.351 Hemiplegia and hemiparesis following cerebral infarction affecting right dominant side; F17.210 Nicotine dependence, cigarettes, uncomplicated; E78.5 Hyperlipidemia, unspecified; D72.829 Elevated white blood cell count, unspecified; F40.240 Claustrophobia; F41.0 Panic disorder [episodic paroxysmal anxiety]; H54.7 Unspecified visual loss; H91.91 Unspecified hearing loss, right ear; I10 Essential (primary) hypertension; I95.1 Orthostatic hypotension; J44.9 Chronic obstructive pulmonary disease, unspecified; Z79.82 Long term (current) use of aspirin; Z79.899 Other long term (current) drug therapy; Z80.9 Family history of malignant neoplasm, unspecified; Z81.8 Family history of other mental and behavioral disorders; Z87.820 Personal history of traumatic brain injury; Z91.81 History of falling; Z60.2 Problems related to living alone; E66.9 Obesity, unspecified; Z68.31 Body mass index [BMI] 31.0-31.9, adult; F32.9 Major depressive disorder, single episode, unspecified; Z90.89 Acquired absence of other organs; Z98.51 Tubal ligation status
CPT/HCPCS: 36415; 71046; 80053; 81001; 83605; 83735; 84484; 85025; 85610; 85730; 93005; 93306; 94640; 99285

== ENCOUNTER 2020-12-29 04:03 | Inpatient (IN) | payer MEDICARE, OTHER ==
[2020-12-29] MEDS ORDERED: MORPHINE SULFATE 4 MG/ML SYRINGE IV STA (05:01)
[2020-12-29 05:26] LABS: Basophils # (A) 0.1 k/uL (0-0.2); Basophils % (A) 1 %; Eosinophils # (A) 0.3 k/uL (0-0.7); Eosinophils % (A) 3 %; HGB 12.5 gm/dL (11.4-16.0); Lymphocytes # (A) 3.1 k/uL (1.0-4.8); Lymphocytes % (A) 33 %; MCH 31.1 pg (25.0-35.0); MCHC 33.8 g/dL (31.0-37.0); Mean Platelet Volume 7.7; Monocytes # (A) 0.5 k/uL (0-1.0); Monocytes % (A) 5 %; Neutrophils # (A) 5.4 k/uL (1.3-7.7); Neutrophils % (A) 58 %; Platelet Count 235 k/uL (150-450); RBC 4.02 m/uL (3.80-5.40); RDW 13.6 % (11.5-15.5); WBC 9.4 k/uL (3.8-10.6)
[2020-12-29 05:37] LABS: Carbon Dioxide 28 mmol/L (22-30); Chloride 104 mmol/L (98-107); Glucose 94 mg/dL (74-99); Potassium 4.5 mmol/L (3.5-5.1); Sodium 137 mmol/L (137-145)
[2020-12-29 05:38] LABS: ALT 28 U/L (4-34); AST 27 U/L (14-36); African American GFR (CKD) >90 (>60 ml/min/1.73 sqM); Albumin 3.9 g/dL (3.5-5.0); Alkaline Phosphatase 80 U/L (38-126); Anion Gap 5 mmol/L; Blood Urea Nitrogen 13 mg/dL (7-17); C Reactive Protein 8.4 mg/L (<10.0); Calcium 9.2 mg/dL (8.4-10.2); Non-African American GFR(CKD) >90 (>60 ml/min/1.73 sqM); Total Bilirubin 0.4 mg/dL (0.2-1.3); Total Protein 6.8 g/dL (6.3-8.2)
--- NOTE | 2020-12-29 05:40 | CT ---
EXAM: CT Head Without Intravenous Contrast CLINICAL HISTORY: ITS.REASON CT Reason: pain TECHNIQUE: Axial computed tomography images of the head/brain without intravenous contrast. CTDI is 32.28 mGy and DLP is 775.95 mGy-cm. This CT exam was performed using one or more of the following dose reduction techniques: automated exposure control, adjustment of the mA and/or kV according to patient size, and/or use of iterative reconstruction technique. COMPARISON: No relevant prior studies available. FINDINGS: Brain: No acute infarct, hemorrhage, mass or edema. Encephalomalacia within the left temporal lobe. Ventricles: Unremarkable. No ventriculomegaly. Bones/joints: No acute osseous abnormality. Soft tissues: Unremarkable. Sinuses: Minimal mucosal thickening the paranasal sinuses. Mastoid air cells: Unremarkable as visualized. IMPRESSION: No acute findings in the head/brain. EXAM: CT Cervical Spine Without Intravenous Contrast CLINICAL HISTORY: ITS.REASON CT Reason: pain TECHNIQUE: Axial computed tomography images of the cervical spine without intravenous contrast. CTDI is 32.28 mGy and DLP is 775.95 mGy-cm. This CT exam was performed using one or more of the following dose reduction techniques: automated exposure control, adjustment of the mA and/or kV according to patient size, and/or use of iterative reconstruction technique. COMPARISON: No relevant prior studies available. FINDINGS: Vertebrae: No acute fracture or traumatic malalignment. Discs/spinal canal/neural foramina: No acute findings. No significant spinal canal or neuroforaminal stenosis. Soft tissues: Unremarkable. IMPRESSION: No acute findings in the cervical spine.
--- NOTE | 2020-12-29 05:49 | ED ---
General Adult HPI - General Chief complaint: Back Pain/Injury Stated complaint: Back/neck pain Time Seen by Provider: 12/29/20 04:28 Source: patient, EMS Mode of arrival: EMS Limitations: physical limitation (The patient is poor certified medical aide, not able to detail her history or medications) - History of Present Illness Initial comments: This patient is a 50-year-old woman who presents with complaints of pain everywhere. She had complained in triage of pain in the low back and the neck. When I interview the patient, she complains of pain throughout. She states that the pain is worse in the head and neck. That is been going on for a number of days to week. She is not able to characterize the pain well. She denies any recent injury. She denies any new neurologic deficit, stating that she does have some underlying right-sided weakness due to a traumatic fall and number of years ago. -: week(s) - Related Data Home Medications Medication Instructions Recorded Confirmed ARIPiprazole [Abilify] 5 mg PO HS 02/29/20 12/08/20 Aspirin EC [Ecotrin Low Dose] 81 mg PO DAILY 07/16/20 12/08/20 Vitamin B Complex 1 cap PO DAILY 07/16/20 12/08/20 Nystatin 100,000 Unit/gm Powd 1 applic TOPICAL BID 09/13/20 12/08/20 [Mycostatin Powder] Atorvastatin Calcium [Lipitor] 20 mg PO HS 10/13/20 12/08/20 Nitroglycerin Sl Tabs [Nitrostat] 0.4 mg SL Q5M PRN 12/04/20 12/08/20 Tiotropium Br/Olodaterol HCl 1 puff INHALATION RT-DAILY 12/04/20 12/08/20 [Stiolto Respimat Inhal [place]] Previous Rx's Medication Instructions Recorded Albuterol Nebulized [Ventolin 2.5 mg INHALATION RT-Q4H PRN ml 09/17/20 Nebulized] Dextroamphetamine/Amphetamine 20 mg PO DAILY #3 tab 09/24/20 [Adderall] Meclizine [Antivert] 12.5 mg PO TID 30 Days #90 tab 12/08/20 Sennosides [Senokot] 8.6 mg PO BID 30 Days #60 tab 12/08/20 lamoTRIgine [LaMICtal] 25 mg PO BID 15 Days #30 tab 12/08/20 Lidocaine 5% Patch [Lidoderm 5% 1 patch TOPICAL DAILY patch 12/11/20 Patch] Midodrine [ProAmatine] 5 mg PO AC-TID tab 12/11/20 Allergies Allergy/AdvReac Type Severity Reaction Status Date / Time cat dander Allergy Rash/Hives Verified 12/08/20 18:06 tomato Allergy Rash/Hives Verified 12/08/20 18:06 Review of Systems ROS Statement: Those systems with pertinent positive or pertinent negative responses have been documented in the HPI. ROS Other: All systems not noted in ROS Statement are negative. Limitations: ROS unobtainable due to patients medical condition Constitutional: Denies: fever Respiratory: Denies: cough, dyspnea Cardiovascular: Denies: chest pain Gastrointestinal: Reports: abdominal pain Musculoskeletal: Reports: back pain Neurological: Reports: headache Past Medical History Past Medical History: Chest Pain / Angina, COPD, CVA/TIA, Memory Impairment, Neurologic Disorder Additional Past Medical History / Comment(s): Pt has history of brain injury following fall down flight of stairs in 2010 and was comatose for 3 months, then when she regained consciousness she had a CVA with R sided paralysis/parasthesia/decreased vision R eye/decreased hearing R ear/loss of sensation r inside of mouth-takes care with what food she eats/no longer has feelings of hunger/cannot taste or smell, pt denies ever having a seizure, hypothyroid, occasional pedal edema, occasional headaches. History of Any Multi-Drug Resistant Organisms: None Reported Past Surgical History: Section, Tonsillectomy, Tubal Ligation Additional Past Surgical History / Comment(s): Past trach/peg tube, pt thinks some kind of brain/skull surgery while comatose in 2010 at [facility]. Past Anesthesia/Blood Transfusion Reactions: No Reported Reaction Past Psychological History: Anxiety Smoking Status: Current some day smoker Past Alcohol Use History: None Reported Past Drug Use History: None Reported - Past Family History Mother Family Medical History: Cancer Additional Family Medical History / Comment(s): Mother of cancer, pt does not know what type. Father Family Medical History: Cancer Additional Family Medical History / Comment(s): Father is alive and has had 3 different types of cancer but survived them all. General Exam Limitations: no limitations General appearance: alert, in no apparent distress Head exam: Present: atraumatic, normocephalic Eye exam: Present: normal appearance. Absent: scleral icterus, conjunctival injection Neck exam: Present: normal inspection, full ROM. Absent: tenderness Respiratory exam: Present: normal lung sounds bilaterally. Absent: respiratory distress, wheezes, rales, rhonchi, stridor Cardiovascular Exam: Present: regular rate, normal rhythm, normal heart sounds. Absent: systolic murmur, diastolic murmur, rubs, gallop GI/Abdominal exam: Present: soft. Absent: distended, tenderness, guarding, rebound Extremities exam: Present: normal inspection, normal capillary refill. Absent: pedal edema, calf tenderness Neurological exam: Present: alert, CN II-XII intact, motor sensory deficit. Absent: oriented X3 (Patient disoriented to date) Skin exam: Present: warm, dry, intact, normal color. Absent: rash Course Vital Signs 12/29/20 12/29/20 12/29/20 04:06 05:09 06:14 Temperature 97.7 F Pulse Rate 67 74 68 Respiratory 16 18 16 Rate Blood Pressure 121/72 111/77 108/71 O2 Sat by Pulse 100 98 98 Oximetry Medical Decision Making - Medical Decision Making Patient's 50-year-old woman who presents with head and neck and back pain, also complaining that she is not able to get around her house. She states that she was told by Dr. Bocanegra to return to emergency department to have a rehab placement, and she feels that this will be necessary. - Lab Data Result diagrams: 12/29/20 05:00 12/29/20 05:00 Lab Results 12/29/20 12/29/20 Range/Units 05:00 05:00 WBC 9.4 (3.8-10.6) k/uL RBC 4.02 (3.80-5.40) m/uL Hgb 12.5 (11.4-16.0) gm/dL Hct 37.0 (34.0-46.0) % MCV 92.0 (80.0-100.0) fL MCH 31.1 (25.0-35.0) pg MCHC 33.8 (31.0-37.0) g/dL RDW 13.6 (11.5-15.5) % Plt Count 235 (150-450) k/uL MPV 7.7 Neutrophils % 58 % Lymphocytes % 33 % Monocytes % 5 % Eosinophils % 3 % Basophils % 1 % Neutrophils # 5.4 (1.3-7.7) k/uL Lymphocytes # 3.1 (1.0-4.8) k/uL Monocytes # 0.5 (0-1.0) k/uL Eosinophils # 0.3 (0-0.7) k/uL Basophils # 0.1 (0-0.2) k/uL Sodium 137 (137-145) mmol/L Potassium 4.5 (3.5-5.1) mmol/L Chloride 104 (98-107) mmol/L Carbon Dioxide 28 (22-30) mmol/L Anion Gap 5 mmol/L BUN 13 (7-17) mg/dL Creatinine 0.58 (0.52-1.04) mg/dL Est GFR (CKD-EPI)AfAm >90 (>60 ml/min/1.73 sqM) Est GFR (CKD-EPI)NonAf >90 (>60 ml/min/1.73 sqM) Glucose 94 (74-99) mg/dL Calcium 9.2 (8.4-10.2) mg/dL Total Bilirubin 0.4 (0.2-1.3) mg/dL AST 27 (14-36) U/L ALT 28 (4-34) U/L Alkaline Phosphatase 80 (38-126) U/L C-Reactive Protein 8.4 (<10.0) mg/L Total Protein 6.8 (6.3-8.2) g/dL Albumin 3.9 (3.5-5.0) g/dL Disposition Clinical Impression: Unable to care for self, Chronic back pain Disposition: ADMITTED IP TO THIS HOSP Condition: Fair Referrals: Chris Bocanegra MD [Primary Care Provider] - 1-2 days
--- NOTE | 2020-12-29 05:49 | XR ---
EXAM: XR Lumbosacral Spine, 2 or 3 Views CLINICAL HISTORY: ITS.REASON XR Reason: pain TECHNIQUE: Frontal and lateral views of the lumbar spine and sacrum. COMPARISON: No relevant prior studies available. FINDINGS: Vertebrae: No acute fracture or traumatic malalignment. Sacrum/coccyx: Unremarkable as visualized. No acute fracture. Disc spaces: Multilevel degenerative changes. Soft tissues: Unremarkable. Vasculature: IVC filter is noted. Other findings: Evidence of prior cholecystectomy. IMPRESSION: No acute findings in the lumbar spine.
[2020-12-29] MEDS ORDERED: ACETAMINOPHEN TAB 325 MG TAB PO STA (06:37)
[2020-12-29] MEDS ORDERED: NALOXONE 0.4 MG/ML 1 ML VIAL IV PRN (06:37)
[2020-12-29] MEDS ORDERED: ALBUTEROL NEBULIZED 2.5 MG/3 ML INHALATION PRN (06:41)
[2020-12-29] MEDS: IPRATROPIUM 0.5 MG/2.5 ML NEBU INHALATION SCH ×4 (08:19→19:35)
[2020-12-29] MEDS: FORMOTEROL FUMARATE 20 MCG/2 ML NEBU INHALATION SCH ×2 (08:19→19:35)
[2020-12-29] MEDS: Dextroamphetamine/Amphetamine [Adderall] PO SCH (08:41)
[2020-12-29] MEDS ORDERED: NON FORMULARY DRUG (Vitamin B Complex [Vitamin B Complex] 1 EACH Capsule) PO SCH (09:00)
[2020-12-29] MEDS ORDERED: lamoTRIgine 25 MG TAB PO SCH (09:00)
[2020-12-29] MEDS: KETOROLAC 15 MG/ML 1 ML VIAL IVP PRN ×2 (09:01→14:11)
[2020-12-29] MEDS: methylPREDNISolone SOD SUCCI 40 MG/ML 1 ML VIAL IV SCH ×2 (09:02→16:27)
[2020-12-29] MEDS: NYSTATIN 100,000 UNIT/GM POWD 15 GM TOPICAL SCH ×2 (09:03→21:39)
[2020-12-29] MEDS: FAMOTIDINE 20 MG TAB PO SCH ×2 (09:03→21:33)
[2020-12-29] MEDS: ASPIRIN 81 MG PO SCH (09:03)
--- NOTE | 2020-12-29 11:58 | HP ---
HISTORY AND PHYSICAL A 50-year-old white female who is admitted with generalized weakness and frequent falls, unable to take care of herself. She needs to go back to the detention. She is complaining of severe pain in the lower back and neck and pain throughout her body, head, neck, and numbness and dizziness. Unable to take care of herself due to chronic pain. She had a lumbar epidural shot maybe 3 or 4 weeks ago. She has worsening pain in her neck and lower back. CT scans were done in the emergency room when she was admitted. HOME MEDICINES: Abilify 5 q.h.s., aspirin 81 daily, vitamin B complex daily, nystatin powder topically b.i.d., Lipitor 20 daily, nitroglycerin sublingual. She is supposed to be on midodrine 5 t.i.d., Stiolto Respimat. ALLERGIES: CAT DANDER, TOMATOES. REVIEW OF SYSTEMS: Fourteen-point review of systems negative except for mentioned in HPI. PAST MEDICAL HISTORY: She has had multiple workups for chronic dizziness and depression and bipolar. History of CVA, TIA, COPD, angina, bipolar, neurologic disorder with intracranial bleed back from 2010, chronic right-sided weakness. PAST SURGICAL HISTORY: , tonsillectomy, tubal ligation. SOCIAL HISTORY: Current everyday smoker. No alcohol. No drugs. FAMILY HISTORY: Mother with cancer. Father of cancer. PHYSICAL EXAMINATION: VITAL SIGNS: Stable. Afebrile. Temperature 97.7, blood pressure 108 to 121 over 70s, O2 98 to 100%, pulse 60s to 80s CARDIOVASCULAR: S1, S2. LUNGS: Clear. MUSCULOSKELETAL: There is 4/5 strength right arm, right leg, 5/5 left arm and left leg. PSYCH: Giving appropriate answers. CARDIOVASCULAR: S1, S2. SKIN: Warm, dry. No rash. ASSESSMENT: 1. Generalized weakness, right arm, right leg. 2. Cervical lumbar disc disease. 3. Chronic pain syndrome. 4. Orthostatic hypotension. 5. Chronic dizziness, unclear etiology. Labs look good. Going to try to get epidural shots, possibly sent to a rehab center again and have Neurology see her for some dizziness. Prognosis is guarded. MMODL / IJN: [id number] /
[2020-12-29] MEDS: MIDODRINE 5 MG TAB PO SCH ×3 (12:04→17:18)
[2020-12-29] MEDS: SODIUM CHLORIDE 0.9% 1,000 ML IV SCH (12:04)
[2020-12-29] MEDS: MECLIZINE 12.5 MG TAB PO SCH ×3 (12:04→22:22)
[2020-12-29] MEDS: SENNOSIDES 8.6 MG TAB PO SCH ×2 (12:04→21:33)
[2020-12-29] MEDS: LIDOCAINE 5% PATCH TOPICAL SCH (12:04)
--- NOTE | 2020-12-29 15:35 | P.CNNES ---
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 upon seeing the patient she said that she has neck pain for the last 3-4 daysit's over the entire neck pain that radiates to the head region. She denies any radiation of the upper extremities and denies any new numbness or weakness associated with the neck pain of the upper extremities. she also has entire lower back pain for the last 1 week she stated and it's localized. She denies any radiation to the legs and denies any new weakness or numbness over the lower extremities. Denies any bladder or bowel problems. Regarding her headache again as stated she has this neck pain that radiates up and she said the headaches aren't supple region radiates to the frontal region been going on for last 3 days at 10 over 10 it's constant she she feels as a throbbing headache, she has minimal nausea but no photophobia or phonophobia. Denies any visual disturbance. Denies any facial weakness or difficulty getting her words out. Eyes of any head trauma. Denies of any neck trauma or lower back trauma. Since the patient's been on Lamictal she is complaining of having worsening of the dizziness tests at rest or moving. Patient notified me that she would like to be back on Keppra and she tolerated the medication much better than the Lamictal. I notified her that Keppra can the have worsening of her mood and she denies that. Upon reviewing the patient's previous visits per the neurology notes mention that she had hallucination and because the Keppra has an effect of mood was decided to put her on Lamictal. in the past she was on Keppra for seizure prophylaxis and she never had a clinical seizure according to the patient. workup in the hospital consisted of: CT of the head is reported as no acute finding in the head/brain. CT cervical spine was reported as no acute finding in the cervical spine. lumbar x-ray was reported as no acute finding in the lumbar spine. Of note I could not open any of the images to review since there is an issue with a software. her basic metabolic panel is normal. The calcium is 9.2 which is normal. Her lara virus PCR was not detected ED consulted anesthesiology. Of note the patient is known to our neurology team since she presented with different issues. She was last seen on 12/09/[address] Rushingand on last visit was noted that the orthostatic vital showed the drop in the blood pressure from seated to standing per Dr. Rushing's note. As a result the patient was started on midodrine at. The patient was the recommended to continue the current weaning of Keppra and the replacement with the Lamictal titration. Dr. Rushing felt that the patient had mood swings as well as on evaluation the speech was rapid and difficult to understand and she questioned whether she has any anne and recommended psychiatry evaluationthePlease deferred to Dr. Rushing's last note for further neurological detail. I to that she was seen on 12/05/2020 also for chronic recurrent dizziness and during that visit was recommended the recommend ENT also old as an outpatient for to rule out peripheral vestibular dysfunction. Because of her being able dysfunction of hallucination he recommended titration and then stopping Keppra and the for the patient to be on Lamictal instead with titration.I also saw the patient on 08/31/2020. photic is documented that the patient is on seizure prophylaxis in the past but never had a clinical seizure and had the EEG performed twice in the past which were normal. Review of Systems Review of system: The 12 point system was reviewed and apparent positive and negative per HPI. Past Medical History Past Medical History: Chest Pain / Angina, COPD, CVA/TIA, Memory Impairment, Neurologic Disorder Additional Past Medical History / Comment(s): Pt has history of brain injury following fall down flight of stairs in 2010 and was comatose for 3 months, then when she regained consciousness she had a CVA with R sided paralysis /parasthesia/decreased vision R eye/decreased hearing R ear/loss of sensation r inside of mouth-takes care with what food she eats/no longer has feelings of hunger/cannot taste or smell, pt denies ever having a seizure, hypothyroid, occasional pedal edema, occasional headaches. History of Any Multi-Drug Resistant Organisms: None Reported Past Surgical History: Section, Tonsillectomy, Tubal Ligation Additional Past Surgical History / Comment(s): Past trach/peg tube, pt thinks some kind of brain/skull surgery while comatose in 2010 at [facility]. Past Anesthesia/Blood Transfusion Reactions: No Reported Reaction Past Psychological History: Anxiety Additional Psychological History / Comment(s): mood disorder. Pt resides alone in her apartment. She owns a cane but does not need to use it. She cannot drive, a friend takes her to [employer]. Smoking Status: Current every day smoker Past Alcohol Use History: None Reported Additional Past Alcohol Use History / Comment(s): Pt started smoking in 1989 and cut down to 2 cigarettes a day about 4-5 month ago. Past Drug Use History: None Reported - Past Family History Mother Family Medical History: Cancer Additional Family Medical History / Comment(s): Mother of cancer, pt does not know what type. Father Family Medical History: Cancer Additional Family Medical History / Comment(s): Father is alive and has had 3 different types of cancer but survived them all. Medications and Allergies Home Medications Medication Instructions Recorded Confirmed Type ARIPiprazole [Abilify] 5 mg PO HS 02/29/20 12/29/20 History Aspirin EC [Ecotrin Low Dose] 81 mg PO DAILY 07/16/20 12/29/20 History Vitamin B Complex 1 cap PO DAILY 07/16/20 12/29/20 History Nystatin 100,000 Unit/gm Powd 1 applic TOPICAL BID PRN 09/13/20 12/29/20 History [Mycostatin Powder] Albuterol Nebulized [Ventolin 2.5 mg INHALATION RT-Q4H PRN ml 09/17/20 12/29/20 Rx Nebulized] Dextroamphetamine/Amphetamine 20 mg PO DAILY #3 tab 09/24/20 12/29/20 Rx [Adderall] Atorvastatin Calcium [Lipitor] 20 mg PO HS 10/13/20 12/29/20 History Nitroglycerin Sl Tabs [Nitrostat] 0.4 mg SL Q5M PRN 12/04/20 12/29/20 History Tiotropium Br/Olodaterol HCl 1 puff INHALATION RT-DAILY 12/04/20 12/29/20 History [Stiolto Respimat Inhal Morris] Meclizine [Antivert] 12.5 mg PO TID 30 Days #90 tab 12/08/20 12/29/20 Rx Sennosides [Senokot] 8.6 mg PO BID 30 Days #60 tab 12/08/20 12/29/20 Rx lamoTRIgine [LaMICtal] 25 mg PO BID 15 Days #30 tab 12/08/20 12/29/20 Rx Lidocaine 5% Patch [Lidoderm 5% 1 patch TOPICAL DAILY patch 12/11/20 12/29/20 Rx Patch] Midodrine [ProAmatine] 5 mg PO AC-TID tab 12/11/20 12/29/20 Rx Amoxicillin 875 mg PO BID 12/29/20 12/29/20 History Allergies Allergy/AdvReac Type Severity Reaction Status Date / Time cat dander Allergy Rash/Hives Verified 12/29/20 07:28 tomato Allergy Rash/Hives Verified 12/29/20 07:28 Physical Examination - Vital Signs Vital Signs: Vital Signs Temp Pulse Pulse Resp BP BP Pulse Ox 12/29/20 08:30 68 12/29/20 08:20 68 12/29/20 07:44 96.1 F L 70 16 125/58 98 12/29/20 07:12 98 F 66 18 97/57 98 12/29/20 06:14 68 16 108/71 98 12/29/20 05:09 74 18 111/77 98 12/29/20 04:06 97.7 F 67 16 121/72 100 Intake and Output 12/28/20 12/29/20 12/29/20 22:59 06:59 14:59 Other: Voiding Method Toilet Weight 104.326 kg 104.326 kg GENERAL: The patient is lying in bed and is not in acute distress. CHEST: The heart rate is regular rate rhythm. No murmurs to auscultation. LUNG: Clear to auscultation bilaterally no wheezing noted throughout. Not labored breathing. ABDOMEN/GI: Bowel sounds present in all 4 quadrants. No tenderness to palpation throughout. NEUROLOGICAL: Higher mental function: The patient is awake, alert, oriented to self, place and time. Patient is following commands. No aphasia and no neglect. Cranial nerves: The pupils are round, equal and reactive to light and accommodation. Visual newman are full to confrontation throughout. Extraocular movement is intact no nystagmus is noted. Facial sensation is normal to touch throughout. The facial strength is normal throughout. Hearing is normal bilaterally to hand rub. Tongue is midline and moved [id number] without any difficulty. No dysarthria is noted. Shoulder shrug is normal bilaterally. Motor: Gait is deferred. 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 Right lower extremity had 4-/5. Left upper and lower is 5/5. Cerebellum: Normal finger to nose bilaterally. Sensation: Sensation is normal to touch throughout. Reflexes (right/left): 1+ throughout. Plantars are mute bilaterally. Results - Laboratory Findings CBC and BMP: 12/29/20 05:00 12/29/20 05:00 Assessment and Plan Assessment: This is a 50-year-old woman that is known to the neurology service that comes to the hospital frequently and this time she comes to the emergency department on 12/29/2020 for neck pain, lower back pain, headache and worsening of dizziness for the last 3 days to 1 week. she complained to the ED that she has generalized pain. Chronic recurrent vertigo. With similar presentation in past seems possible peripheral vestibular dysfunction. according to patient it's been worse since Lamictal and the medical does cause dizziness. Also in past has component of orthostatic hypotension and on midodrine. headache seems referred for her neck pain. Neck pain without any radiation or new focal weakness or numbness upper extremities chronic lower back pain without any radiation or new focal weakness or numbness the lower extremity Traumatic brain injury with evidence of left temporal supplementation with residual mild right-sided weakness patient is on seizure prophylaxis and in the past was on Keppra and with transition to Lamictal because of a hallucination in the past. she never had clinical seizures and had 2 EEGs in the past which were normal. Vitamin B12 deficiency (in past b12 is 270) hypertension Tobacco use . Plan: * patient is on the Lamictal that would help for seizure prophylaxis and helps with her mood. According to patient the she has worsening of dizziness with the Lamictal. Therefore I stopped Lamictal and started the patient on Depakote 250 mg 1 tablet twice a day. * I ordered CT of the head and neck since the patient stated that she has any new onset of headache that's worse: Reason for the CTA to rule out any intracranial aneurysm (unlikely). * regarding the patient's vertigo, the patient needs to follow-up with ENT as an outpatient possibly consider vestibular rehab as an outpatient. * currently she is on meclizine 12.5 mg 1 tablet 3 times a day. Consider going up to 25 mg 1 tablet twice a day. * I ordered orthostatic vitals. * Patient is was given morphine for milligram once in the ED. She was also given lidocaine patch topical. She was also started on Toradol very milligram IV every 6 hours as needed and was given Solu-Medrol 40 mg IV every 8 hours to relieve with the pain. * ED consulted anesthesiology. * I started the patient on gabapentin 1 tablet 3 times a day which can help with the pain/headaches. * I consulted the orthopedic team for the neck pain and lower back pain. * regarding her documented the vitamin B12 deficiency I will start the patient on vitamin B12 at thousand micrograms daily. * she is on aspirin 81 mg and Lipitor 20 mg for secondary stroke prophylaxis. * PT and OT are consulted. * We'll defer the rest of the medical management to the primary team. Thank you for the consultation. Nomi Rea MD Neuro-Hospitalist Time with Patient: Greater than 30
[2020-12-29] MEDS: GABAPENTIN 100 MG CAP PO SCH ×2 (15:43→21:33)
[2020-12-29] MEDS: CYANOCOBALAMIN 500 MCG TAB PO SCH (16:27)
--- NOTE | 2020-12-29 19:27 | P.CNOR ---
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 upon seeing the patient she said that she has neck pain for the last 3-4 daysit's over the entire neck pain that radiates to the head region. She denies any radiation of the upper extremities and denies any new numbness or weakness associated with the neck pain of the upper extremities. she also has entire lower back pain for the last 1 week she stated and it's localized. She denies any radiation to the legs and denies any new weakness or numbness over the lower extremities. Denies any bladder or bowel problems. Regarding her headache again as stated she has this neck pain that radiates up and she said the headaches aren't supple region radiates to the frontal region been going on for last 3 days at 10 over 10 it's constant she she feels as a throbbing headache, she has minimal nausea but no photophobia or phonophobia. Denies any visual disturbance. Denies any facial weakness or difficulty getting her words out. Eyes of any head trauma. Denies of any neck trauma or lower back trauma. Since the patient's been on Lamictal she is complaining of having worsening of the dizziness tests at rest or moving. Patient notified me that she would like to be back on Keppra and she tolerated the medication much better than the Lamictal. I notified her that Keppra can the have worsening of her mood and she denies that. Upon reviewing the patient 's previous visits per the neurology notes mention that she had hallucination and because the Keppra has an effect of mood was decided to put her on Lamictal. in the past she was on Keppra for seizure prophylaxis and she never had a clinical seizure according to the patient. workup in the hospital consisted of: CT of the head is reported as no acute finding in the head/brain. CT cervical spine was reported as no acute finding in the cervical spine. lumbar x-ray was reported as no acute finding in the lumbar spine. Of note I could not open any of the images to review since there is an issue with a software. her basic metabolic panel is normal. The calcium is 9.2 which is normal. Her lara virus PCR was not detected ED consulted anesthesiology. Of note the patient is known to our neurology team since she presented with different issues. She was last seen on 12/09/[address] Rushingand on last visit was noted that the orthostatic vital showed the drop in the blood pressure from seated to standing per Dr. Rushing's note. As a result the patient was started on midodrine at. The patient was the recommended to continue the current weaning of Keppra and the replacement with the Lamictal titration. Dr. Rushing felt that the patient had mood swings as well as on terrence luation the speech was rapid and difficult to understand and she questioned whether she has any anne and recommended psychiatry evaluationthePlease deferred to Dr. Rushing's last note for further neurological detail. I to that she was seen on 12/05/2020 also for chronic recurrent dizziness and during that visit was recommended the recommend ENT also old as an outpatient for to rule out peripheral vestibular dysfunction. Because of her being able dysfunction of hallucination he recommended titration and then stopping Keppra and the for the patient to be on Lamictal instead with titration.I also saw the patient on 08/31/2020. photic is documented that the patient is on seizure prophylaxis in the past but never had a clinical seizure and had the EEG performed twice in the past which were normal. Spine HPI: 50-year-old female presents to the emergency department for generalized weakness and pain. Of note the patient has had multiple CVA in the past leaving her with mild right upper extremity right lower extremity weakness. The patient states that she has pain in her neck and low back. She states that they have been gradual in onset with no trauma or inciting event. She has a pain at the base of her neck as well as her low back. She denies any radiation of this pain. She denies any pain in her legs or upper extremities. She states no no new numbness or weakness that has started in her upper or lower extremities. She denies any bowel or bladder issues. She denies any perineal numbness or tingling at this time. She denies any fevers chills shortness of breath or chest pain. Review of Systems 14 points review of systems completed and as stated in HPI, all other systems reviewed are negative. 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 History of Any Multi-Drug Resistant Organisms: None Reported Past Surgical History: Section, Tonsillectomy, Tubal Ligation Additional Past Surgical History / Comment(s): Past trach/peg tube, pt thinks some kind of brain/skull surgery while comatose in 2010 at [facility]. Past Anesthesia/Blood Transfusion Reactions: No Reported Reaction Past Psychological History: Anxiety Additional Psychological History / Comment(s): mood disorder. Pt resides alone in her apartment. She owns a cane but does not need to use it. She cannot drive, a friend takes her to [employer]. Smoking Status: Current every day smoker Past Alcohol Use History: None Reported Additional Past Alcohol Use History / Comment(s): Pt started smoking in 1989 and cut down to 2 cigarettes a day about 4-5 month ago. Past Drug Use History: None Reported - Past Family History Mother Family Medical History: Cancer Additional Family Medical History / Comment(s): Mother of cancer, pt does not know what type. Father Family Medical History: Cancer Additional Family Medical History / Comment(s): Father is alive and has had 3 different types of cancer but survived them all. Medications and Allergies Home Medications Medication Instructions Recorded Confirmed Type ARIPiprazole [Abilify] 5 mg PO HS 02/29/20 12/29/20 History Aspirin EC [Ecotrin Low Dose] 81 mg PO DAILY 07/16/20 12/29/20 History Vitamin B Complex 1 cap PO DAILY 07/16/20 12/29/20 History Nystatin 100,000 Unit/gm Powd 1 applic TOPICAL BID PRN 09/13/20 12/29/20 History [Mycostatin Powder] Albuterol Nebulized [Ventolin 2.5 mg INHALATION RT-Q4H PRN ml 09/17/20 12/29/20 Rx Nebulized] Dextroamphetamine/Amphetamine 20 mg PO DAILY #3 tab 09/24/20 12/29/20 Rx [Adderall] Atorvastatin Calcium [Lipitor] 20 mg PO HS 10/13/20 12/29/20 History Nitroglycerin Sl Tabs [Nitrostat] 0.4 mg SL Q5M PRN 12/04/20 12/29/20 History Tiotropium Br/Olodaterol HCl 1 puff INHALATION RT-DAILY 12/04/20 12/29/20 History [Stiolto Respimat Inhal [place]] Meclizine [Antivert] 12.5 mg PO TID 30 Days #90 tab 12/08/20 12/29/20 Rx Sennosides [Senokot] 8.6 mg PO BID 30 Days #60 tab 12/08/20 12/29/20 Rx lamoTRIgine [LaMICtal] 25 mg PO BID 15 Days #30 tab 12/08/20 12/29/20 Rx Lidocaine 5% Patch [Lidoderm 5% 1 patch TOPICAL DAILY patch 12/11/20 12/29/20 Rx Patch] Midodrine [ProAmatine] 5 mg PO AC-TID tab 12/11/20 12/29/20 Rx Amoxicillin 875 mg PO BID 12/29/20 12/29/20 History Allergies Allergy/AdvReac Type Severity Reaction Status Date / Time cat dander Allergy Rash/Hives Verified 12/29/20 07:28 tomato Allergy Rash/Hives Verified 12/29/20 07:28 Physical Examination Osteopathic Statement: *. No significant issues noted on an osteopathic structural exam other than those noted in the History and Physical/Consult. PHYSICAL EXAMINATION: Vitals: Stable at this time General: Awake, alert, appropriate for age, in no acute distress. HEENT: No unusual neck masses around region of lateral neck triangle, thyroid, supraclavicular groove. Extremities: Skin warm and dry without no acute lesions, coloration, temperature, skin intact, no tenderness or erythema. Integument: Hairy patches: Absent Dorsal skin dimples: Absent Cafe au lait spots: Absent Surgical incisions: None Palpation: Please see Pain drawing on Intake sheet for further detail. (Tenderness = T, Nontender = NT, Swelling = S, Ecchymosis = E) Findings on Midline and paraspinal palpation and percussion: Cervical: Very mild TTP base of the neck C7 Thoracic: NT Lumbar: NT Sacral: NT Special findings: None POSTURAL and MUSCULO-SKELETAL EVALUATION: Neck ROM: [Unrestricted in six directions] Lumbar ROM: [Unrestricted in six directions] Shoulder ROM: Symmetric in abduction, ER/IR Hip ROM: Symmetric in abduction, adduction, ER/IR Knee ROM: Symmetric and intact in Flexion / extension Hands: Normal appearing structure L and R Feet: Normal appearing structure L and R VASCULAR STATUS : Wrist Pulses: [2/4 bilateral radial and ulnar] Pedal Pulses: [2/4 bilateral DP and PT] Color: [Normal] Edema: [None] NEUROLOGIC EXAMINATION: Mental Status: Awake and alert, fully oriented, with normal attention, concentration and memory, and fluent, appropriate speech. Cranial Nerves: I: Olfactory not tested. II: Visual acuity normal, no visual field deficit noted with confrontation. III,IV: Normal pupillary reflexes & intact extraocular movements without nystagmus. V,: Intact symmetrical facial sensation. VII: Intact symmetrical facial motor movement VIII: Hearing intact. IX,X: Intact gag, swallow, & normal voice. XI: Sternocleidomastoid, trapezius function intact. XII: Tongue midline with normal movements. Special Tests: L'hermitte's Sign: Absent Spurling'Sign: Absent Bilateral Cubital percussion test: Absent Bilateral Angeline-Tinel sign - Carpal region: Absent Bilateral Straight Leg Raising: Absent Bilateral Motor Exam (0-5/5, N/T) STRENGTH UPPER EXTREMITY Shoulder Abd (Not part of FRIDA Motor score): RIGHT [3] LEFT [5] Elbow Flexors: RIGHT [4-] LEFT [5] Elbow Extensor: RIGHT [4-] LEFT [5] Wrrist Dorsiflexors: RIGHT [4-] LEFT [5] Finger Abductor: RIGHT [4-] LEFT [5] Rehabilitation Inspector: RIGHT [4-] LEFT [5] LOWER EXTREMITY Hip Flexor (Not part of FRIDA Motor Score): RIGHT [4+] LEFT [5] Knee Flexor: RIGHT [4+] LEFT [5] Knee Extensor: RIGHT [4+] LEFT [5] Ankle Dorsiflexion: RIGHT [4+] LEFT [5] Ankle Plantarflexion: RIGHT [4+] LEFT [5] EHL: RIGHT [4+] LEFT [5] FHL: RIGHT [4+] LEFT [5] REFLEXES Biecp: RIGHT [2] LEFT [2] Tricep: RIGHT [2] LEFT [2] Brachioradialis: RIGHT [2] LEFT [2] Patellar: RIGHT [2] LEFT [2] Achilles: RIGHT [2] LEFT [2] Pathological Reflexes Kam's: RIGHT [Absent] LEFT [Absent] Babinski: RIGHT [Absent] LEFT [Absent] Clonus: RIGHT [None] LEFT [None] SENSORY Joint Position: [Intact bilaterally] Vibration [Intact bilaterally] Pain and LT sense [Intact C5-T1 and L2-S1] Dermatomal deficit [None] Gait and Functional Evaluation: Ambulatory aids: Patient uses a walker or cane only Hand and finger dexterity intact on the left she has difficulty with this on the right secondary to her stroke. Disdiadochokinesis examination reveals difficulty on the right however is intact on the left consistent with previous exams. Results CT of the cervical spine is reviewed. There is reversal of the normal cervical lordosis. Occipital cervical C1 2 joints appear stable. There is mild spondylosis noted at C5 6 C6 7. There are no fractures dislocations or other lesions noted. X-rays of the lumbar spine are reviewed. Associates mild spondylosis L5-S1 with facet arthrosis. There are no acute fractures dislocations or lesions. Alvino filters in place. Lumbar lordosis as well as coronal and sagittal balance are within limits. She does have some anterior osteophytic spurring around T10-T11. There is no bony erosions noted. - Labs Labs: H & H 12/29/20 Range/Units 05:00 Hgb 12.5 (11.4-16.0) gm/dL Hct 37.0 (34.0-46.0) % Result Diagrams: 12/29/20 05:00 12/29/20 05:00 Assessment and Plan Assessment: 50-year-old female with complex medical history 1. Mechanical Low back pain without radiculopathy 2. Mechanical Neck pain, posterior without radiculopathy 3. History of CVA 4. Right upper extremity weakness right lower extremity weakness secondary to #3 Plan: -Appreciate consult. -Pain control: Adequate at this time -Recommend anti-inflammatories, muscle relaxer, Tylenol if appropriate -Aggressive ambulation protocol. OOB with all meals. OOB or in chair 4-5x daily. -PT/OT -TEDs, SCDs, mechanical ppx. OK for heparin today. Early ambulation is best. -GI ppx. -Obtain C-spine flexion and extension films. -Trend labs. -No urgent or emergent surgical interventions at this time
--- NOTE | 2020-12-29 21:25 | XR ---
EXAMINATION TYPE: XR cervical spine w flex/ext DATE OF EXAM: 12/29/2020 COMPARISON: NONE HISTORY: Neck pain TECHNIQUE: 8 views FINDINGS: Cervical vertebra have fairly normal alignment. Flexion-extension views show no evidence of instability. Disc spaces are fairly normal for age. Posterior elements are intact. The neural forami na are widely patent. Atlantoaxial facet joint is normal. There are no cervical ribs. IMPRESSION: Negative exam. No evidence of instability on the positional views.
[2020-12-29] MEDS: ATORVASTATIN 20 MG TAB PO SCH (21:33)
[2020-12-29] MEDS: ARIPiprazole 5 MG TAB PO SCH (21:34)
[2020-12-29] MEDS: DIVALPROEX 250 MG TABLET.DR PO SCH (21:36)
--- NOTE | 2020-12-29 22:04 | CT ---
EXAMINATION TYPE: CT angio head neck DATE OF EXAM: 12/29/2020 COMPARISON: HISTORY: Headache/dizziness. Hx brain injury. CT DLP: 472.10 mGycm Automated exposure control for dose reduction was used. CONTRAST: Performed with IV Contrast, patient injected with 65 mL of Isovue 370. Images obtained from the aortic arch to the vertex of the brain with IV contrast and 3-D post process ed images. There is normal branching pattern of the great vessels on the aortic arch. There is bilateral arteria l flow in the subclavian arteries. There is arterial flow in both vertebral arteries. There is arteri al flow in the common internal and external carotid arteries bilaterally. There is wide patency of th e carotid artery bifurcations. There is no evidence of carotid or vertebral artery aneurysm or dissec tion. There is arterial flow in the vertebral basilar artery system. There is arterial flow in the anterior middle and posterior cerebral arteries. There is no mass effect. There is no evidence of intracrania l aneurysm or neovascularity. I see no sign of hemodynamic stenosis. There is normal enhancement of the venous sinuses. IMPRESSION: Negative CT angiogram of the neck. Negative CT angiogram of the brain.
[2020-12-30] MEDS: methylPREDNISolone SOD SUCCI 40 MG/ML 1 ML VIAL IV SCH ×4 (00:03→23:56)
[2020-12-30] MEDS: IPRATROPIUM 0.5 MG/2.5 ML NEBU INHALATION SCH ×4 (07:23→21:56)
[2020-12-30] MEDS: FORMOTEROL FUMARATE 20 MCG/2 ML NEBU INHALATION SCH ×2 (07:23→21:55)
[2020-12-30] MEDS: MIDODRINE 5 MG TAB PO SCH ×3 (07:48→15:55)
[2020-12-30] MEDS: Dextroamphetamine/Amphetamine [Adderall] PO SCH (07:49)
[2020-12-30] MEDS: ASPIRIN 81 MG PO SCH (07:49)
[2020-12-30] MEDS: DIVALPROEX 250 MG TABLET.DR PO SCH ×2 (07:49→20:39)
[2020-12-30] MEDS: CYANOCOBALAMIN 500 MCG TAB PO SCH (07:49)
[2020-12-30] MEDS: LIDOCAINE 5% PATCH TOPICAL SCH (07:50)
[2020-12-30] MEDS: FAMOTIDINE 20 MG TAB PO SCH ×2 (07:50→20:39)
[2020-12-30] MEDS: GABAPENTIN 100 MG CAP PO SCH ×3 (07:50→20:39)
[2020-12-30] MEDS: MECLIZINE 12.5 MG TAB PO SCH ×3 (07:51→20:42)
[2020-12-30] MEDS: SENNOSIDES 8.6 MG TAB PO SCH ×2 (07:51→20:39)
[2020-12-30] MEDS: SODIUM CHLORIDE 0.9% 1,000 ML IV SCH ×2 (07:52→23:59)
--- NOTE | 2020-12-30 09:41 | P.PN ---
Subjective Progress Note Date: 12/30/20 Principal diagnosis: neck pain Upon entering room patient is lying semi-recumbent in bed. Patient states she has been up to the bathroom, has not had any bowel movements recently. X-ray of cervical spine was unremarkable. patient has had multiple CVA in the past leaving her with mild right upper extremity right lower extremity weakness. The patient states that she has pain in her neck and low back. She states that they have been gradual in onset with no trauma or inciting event. She has a pain at the base of her neck as well as her low back. She denies any radiation of this pain. She denies any pain in her legs or upper extremities. She states no no new numbness or weakness that has started in her upper or lower extremities. She denies any bowel or bladder issues. She denies any perineal numbness or tingling at this time. She denies any fevers chills shortness of breath or chest pain. Objective - Vital Signs Vital signs: Vital Signs Temp 98.0 F 12/30/20 04:37 Pulse 80 12/30/20 07:41 Resp 16 12/30/20 04:37 BP 103/63 12/30/20 04:37 Pulse Ox 95 12/30/20 04:37 Intake & Output 12/29/20 12/30/20 12/30/20 18:59 06:59 18:59 Weight 104.326 kg Other: Voiding Method Toilet Toilet # Voids 4 3 - Exam PHYSICAL EXAMINATION: Vitals: Stable at this time General: Awake, alert, appropriate for age, in no acute distress. HEENT: No unusual neck masses around region of lateral neck triangle, thyroid, supraclavicular groove. Extremities: Skin warm and dry without no acute lesions, coloration, temperature, skin intact, no tenderness or erythema. Integument: Hairy patches: Absent Dorsal skin dimples: Absent Cafe au lait spots: Absent Surgical incisions: None Palpation: Please see Pain drawing on Intake sheet for further detail. (Tenderness = T, Nontender = NT, Swelling = S, Ecchymosis = E) Findings on Midline and paraspinal palpation and percussion: Cervical: Very mild TTP base of the neck C7 Thoracic: NT Lumbar: NT Sacral: NT Special findings: None POSTURAL and MUSCULO-SKELETAL EVALUATION: Neck ROM: [Unrestricted in six directions] Lumbar ROM: [Unrestricted in six directions] Shoulder ROM: Symmetric in abduction, ER/IR Hip ROM: Symmetric in abduction, adduction, ER/IR Knee ROM: Symmetric and intact in Flexion / extension Hands: Normal appearing structure L and R Feet: Normal appearing structure L and R VASCULAR STATUS : Wrist Pulses: [2/4 bilateral radial and ulnar] Pedal Pulses: [2/4 bilateral DP and PT] Color: [Normal] Edema: [None] NEUROLOGIC EXAMINATION: Mental Status: Awake and alert, fully oriented, with normal attention, concentration and memory, and fluent, appropriate speech. Cranial Nerves: I: Olfactory not tested. II: Visual acuity normal, no visual field deficit noted with confrontation. III,IV: Normal pupillary reflexes & intact extraocular movements without nystagmus. V,: Intact symmetrical facial sensation. VII: Intact symmetrical facial motor movement VIII: Hearing intact. IX,X: Intact gag, swallow, & normal voice. XI: Sternocleidomastoid, trapezius function intact. XII: Tongue midline with normal movements. Special Tests: L'hermitte's Sign: Absent Spurling'Sign: Absent Bilateral Cubital percussion test: Absent Bilateral Angeline-Tinel sign - Carpal region: Absent Bilateral Straight Leg Raising: Absent Bilateral Motor Exam (0-5/5, N/T) STRENGTH UPPER EXTREMITY Shoulder Abd (Not part of FRIDA Motor score): RIGHT [3] LEFT [5] Elbow Flexors: RIGHT [4-] LEFT [5] Elbow Extensor: RIGHT [4-] LEFT [5] Wrrist Dorsiflexors: RIGHT [4-] LEFT [5] Finger Abductor: RIGHT [4-] LEFT [5] Sandfill Operator: RIGHT [4-] LEFT [5] LOWER EXTREMITY Hip Flexor (Not part of FRIDA Motor Score): RIGHT [4+] LEFT [5] Knee Flexor: RIGHT [4+] LEFT [5] Knee Extensor: RIGHT [4+] LEFT [5] Ankle Dorsiflexion: RIGHT [4+] LEFT [5] Ankle Plantarflexion: RIGHT [4+] LEFT [5] EHL: RIGHT [4+] LEFT [5] FHL: RIGHT [4+] LEFT [5] REFLEXES Biecp: RIGHT [2] LEFT [2] Tricep: RIGHT [2] LEFT [2] Brachioradialis: RIGHT [2] LEFT [2] Patellar: RIGHT [2] LEFT [2] Achilles: RIGHT [2] LEFT [2] Pathological Reflexes Kam's: RIGHT [Absent] LEFT [Absent] Babinski: RIGHT [Absent] LEFT [Absent] Clonus: RIGHT [None] LEFT [None] SENSORY Joint Position: [Intact bilaterally] Vibration [Intact bilaterally] Pain and LT sense [Intact C5-T1 and L2-S1] Dermatomal deficit [None] Gait and Functional Evaluation: Ambulatory aids: Patient uses a walker or cane only - Labs CBC & Chem 7: 12/29/20 05:00 12/29/20 05:00 Assessment and Plan Assessment: 1. Mechanical Low back pain without radiculopathy 2. Mechanical Neck pain, posterior without radiculopathy 3. History of CVA 4. Right upper extremity weakness right lower extremity weakness secondary to #3 Plan: -Appreciate consult. -Pain control: Adequate at this time -Recommend anti-inflammatories, muscle relaxer, Tylenol if appropriate -Aggressive ambulation protocol. OOB with all meals. OOB or in chair 4-5x daily. -PT/OT -TEDs, SCDs, mechanical ppx. OK for heparin today. Early ambulation is best. -GI ppx. -C-spine flexion and extension films i no significant findings that would indicate orthopedic surgery at this time -Trend labs. -No urgent or emergent surgical interventions at this time Time with Patient: Less than 30
[2020-12-30] MEDS: ACETAMINOPHEN TAB 325 MG TAB PO PRN (11:55)
[2020-12-30] MEDS: KETOROLAC 15 MG/ML 1 ML VIAL IVP PRN (12:01)
[2020-12-30] MEDS: NYSTATIN 100,000 UNIT/GM POWD 15 GM TOPICAL SCH ×2 (12:04→20:39)
--- NOTE | 2020-12-30 14:39 | P.PN ---
Subjective Progress Note Date: 12/30/20 Patient was seen at bedside and she feels the same today compared to yesterday. Patient is to have headaches, neck pain as well as lower back pain. Denies any new neurological deficits. Objective - Vital Signs Vital signs: Vital Signs Temp 97.7 F 12/30/20 11:55 Pulse 70 12/30/20 11:55 Resp 17 12/30/20 11:55 BP 93/54 12/30/20 11:55 Pulse Ox 94 L 12/30/20 11:55 Intake & Output 12/29/20 12/30/20 12/30/20 18:59 06:59 18:59 Intake Total 240 Balance 240 Weight 104.326 kg Intake: Oral 240 Other: Voiding Method Toilet Toilet Toilet # Voids 4 3 3 - Exam GENERAL: The patient is lying in bed and is in moderate to severe acute distress . NEUROLOGICAL: Higher mental function: The patient is awake, alert, oriented to self, place and time. Patient is following commands. No aphasia and no neglect. Cranial nerves: The pupils are round, equal and reactive to light and accommodation. Visual newman are full to confrontation throughout. Extraocular movement is intact no nystagmus is noted. Facial sensation is normal to touch throughout. The facial strength is normal throughout. Hearing is normal bilaterally to hand rub. Tongue is midline and moved [id number] without any difficulty. No dysarthria is noted. Shoulder shrug is normal bilaterally. Motor: Gait is deferred. The strength is right proximal extremity is 4+ while right hand boxing instructor is 5-. Right lower extremity had 4-/5. Left upper and lower is 5/5. Cerebellum: Normal finger to nose bilaterally. Sensation: Sensation is normal to touch throughout. Reflexes (right/left): 1+ throughout. Plantars are mute bilaterally. - Labs CBC & Chem 7: 12/29/20 05:00 12/29/20 05:00 Assessment and Plan Assessment: This is a 50-year-old woman that is known to the neurology service that comes to the hospital frequently and this time she comes to the emergency department on 12/29/2020 for neck pain, lower back pain, headache and worsening of dizziness for the last 3 days to 1 week. she complained to the ED that she has generalized pain. * Chronic recurrent vertigo. With similar presentation in past seems possible peripheral vestibular dysfunction. according to patient it's been worse since Lamictal and the medical does cause dizziness. Also in past has component of orthostatic hypotension and on midodrine. * Cephagia seems referred for her neck pain. 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 she never had clinical seizures and had 2 EEGs in the past which were normal. * Vitamin B12 deficiency (in past b12 is 270) * hypertension * Tobacco use Plan: * patient is on the Lamictal that would help for seizure prophylaxis and helps with her mood. According to patient the she has worsening of dizziness with the Lamictal. Therefore I stopped Lamictal and started the patient on Depakote 250 mg 1 tablet twice a day on 12/29/2020. * CT angiography of the head and neck was reported as negative. * Cervical spine with flexion and extension is reported as negative exam. No evidence of instability on the positional views. * regarding the patient's vertigo, the patient needs to follow-up with ENT as an outpatient possibly consider vestibular rehab as an outpatient. * currently she is on meclizine 12.5 mg 1 tablet 3 times a day. Consider going up to 25 mg 1 tablet twice a day. * I ordered orthostatic vitals and pending to be done. * Patient is was given morphine for milligram once in the ED. She was also given lidocaine patch topical. She was also started on Toradol very milligram IV every 6 hours as needed and was given Solu-Medrol 40 mg IV every 8 hours to relieve with the pain. * ED consulted anesthesiology. * Continue gabapentin 100mg 1 tablet 3 times a day which can help with the pain/headaches. Consider increasing the gabapentin to 300mg 1 tab tid. * Orthopedic team is on board. * Continue vitamin B12 at thousand micrograms daily. * she is on aspirin 81 mg and Lipitor 20 mg for secondary stroke prophylaxis. * PT and OT are consulted. * We'll defer the rest of the medical management to the primary team. Nomi Rea MD Neuro-Hospitalist Time with Patient: Less than 30
[2020-12-30] MEDS ORDERED: ONDANSETRON 4 MG/2 ML VIAL IVP PRN (17:44)
[2020-12-30 18:21] LABS: Creatine Kinase MB 0.2 ng/mL (0.0-2.4); Troponin I <0.012 ng/mL (0.000-0.034)
[2020-12-30] MEDS: ATORVASTATIN 20 MG TAB PO SCH (20:39)
[2020-12-30] MEDS: ARIPiprazole 5 MG TAB PO SCH (22:15)
[2020-12-31] MEDS: IPRATROPIUM 0.5 MG/2.5 ML NEBU INHALATION SCH ×4 (06:59→20:56)
[2020-12-31] MEDS: FORMOTEROL FUMARATE 20 MCG/2 ML NEBU INHALATION SCH ×2 (06:59→20:56)
--- NOTE | 2020-12-31 06:59 | PN ---
PROGRESS NOTE A 50-year-old white female, generalized weakness, cervical, occipital neuritis, lumbar neuritis, orthostatic hypotension. We are going to get her up ambulating. Get physical therapy working with her. Cardiovascular S1-S2. Lungs clear. GI soft. Hematology negative Homans. Plan is to continue with PT OT, possible rehab center tomorrow versus discharge home. Wait for Neurology recommendations for chronic dizziness and chronic pain syndrome. Possible cervical epidural. MMODL / IJN: [id number] /
[2020-12-31] MEDS: LIDOCAINE 5% PATCH TOPICAL SCH (08:34)
[2020-12-31] MEDS: methylPREDNISolone SOD SUCCI 40 MG/ML 1 ML VIAL IV SCH ×2 (08:35→16:09)
[2020-12-31] MEDS: MECLIZINE 12.5 MG TAB PO SCH ×3 (08:35→21:28)
[2020-12-31] MEDS: CYANOCOBALAMIN 500 MCG TAB PO SCH (08:35)
[2020-12-31] MEDS: ASPIRIN 81 MG PO SCH (08:35)
[2020-12-31] MEDS: SENNOSIDES 8.6 MG TAB PO SCH ×2 (08:36→20:10)
[2020-12-31] MEDS: MIDODRINE 5 MG TAB PO SCH ×3 (08:36→17:43)
[2020-12-31] MEDS: NYSTATIN 100,000 UNIT/GM POWD 15 GM TOPICAL SCH ×2 (08:36→20:11)
[2020-12-31] MEDS: DIVALPROEX 250 MG TABLET.DR PO SCH ×2 (08:36→20:11)
[2020-12-31] MEDS: FAMOTIDINE 20 MG TAB PO SCH ×2 (08:36→20:10)
[2020-12-31] MEDS: GABAPENTIN 100 MG CAP PO SCH ×3 (08:36→21:28)
[2020-12-31] MEDS: Dextroamphetamine/Amphetamine [Adderall] PO SCH (08:41)
--- NOTE | 2020-12-31 15:15 | P.PN ---
Progress Note - Text Progress Note Date: 12/31/20 This is 50 years old was admitted to [facility] secondary to dizziness, and patient complaining of pain she is currently on Toradol 30 mg IV and Neurontin 100 mg 3 times a day, she reported the current regimen is controlling her pain appropriately, her main issue is dizziness, for this reason, I recommend to continue the current medication , I do not recommend any changes
--- NOTE | 2020-12-31 20:07 | PN ---
PROGRESS NOTE [id number] white female with chronic dizziness, chronic chest pain, waiting for cardiology consult. Waiting for Neurology to fix her dizziness. They switched her off Lamictal. Neurology did it and put her back on her Depakote. She still states she is dizzy today. We are going to check orthostatic blood pressure changes. She is in and out of the hospital for the same issues over and over again. I recommend long-term care at the [facility], but she is refusing. CARDIOVASCULAR: S1, S2. ABDOMEN: Soft. HEMATOLOGY: Negative Homans. PSYCH: Fair mood and affect. ASSESSMENT: 1. Debility. 2. Chronic dizziness. 3. Chronic cervical lumbar disk disease, possibly due to cervical or lower lumbar epidurals, which she has had as an outpatient. Wait for neurology recommendations. Please see further orders. Prognosis extremely guarded. This patient does not seem to be improving from her dizziness. Pain doctors continue on the Neurontin and Toradol. Follow up as an outpatient. Will wait until Neurology fixes her dizziness and Cardiology sees her for this atypical chest pain. Troponins were ordered. MMODL / IJN: [id number] /
[2020-12-31] MEDS: ATORVASTATIN 20 MG TAB PO SCH (20:10)
[2020-12-31] MEDS: ARIPiprazole 5 MG TAB PO SCH (20:11)
[2020-12-31 21:18] LABS: Anti-DNA, DS unit <1.0 IU/mL; DNA Double-Stranded NEGATIVE (NEGATIVE); JO-1 IgG Antibody 0.2 AI
[2020-12-31] MEDS: SODIUM CHLORIDE 0.9% 1,000 ML IV SCH (21:29)
[2021-01-01] MEDS: methylPREDNISolone SOD SUCCI 40 MG/ML 1 ML VIAL IV SCH ×5 (00:27→23:38)
[2021-01-01] MEDS: DIVALPROEX 250 MG TABLET.DR PO SCH ×2 (08:20→20:42)
[2021-01-01] MEDS: MIDODRINE 5 MG TAB PO SCH ×3 (08:20→17:45)
[2021-01-01] MEDS: FAMOTIDINE 20 MG TAB PO SCH ×2 (08:20→20:42)
[2021-01-01] MEDS: SENNOSIDES 8.6 MG TAB PO SCH ×2 (08:20→20:42)
[2021-01-01] MEDS: MECLIZINE 12.5 MG TAB PO SCH ×3 (08:20→20:42)
[2021-01-01] MEDS: GABAPENTIN 100 MG CAP PO SCH ×3 (08:20→20:42)
[2021-01-01] MEDS: CYANOCOBALAMIN 500 MCG TAB PO SCH (08:20)
[2021-01-01] MEDS: ASPIRIN 81 MG PO SCH ×2 (08:20→18:02)
[2021-01-01] MEDS: NYSTATIN 100,000 UNIT/GM POWD 15 GM TOPICAL SCH ×2 (08:21→20:41)
[2021-01-01] MEDS: FORMOTEROL FUMARATE 20 MCG/2 ML NEBU INHALATION SCH ×2 (08:25→19:47)
[2021-01-01] MEDS: IPRATROPIUM 0.5 MG/2.5 ML NEBU INHALATION SCH ×4 (08:25→19:47)
[2021-01-01] MEDS: Dextroamphetamine/Amphetamine [Adderall] PO SCH (08:52)
[2021-01-01] MEDS: LIDOCAINE 5% PATCH TOPICAL SCH (08:54)
--- NOTE | 2021-01-01 11:31 | P.CRDCN ---
History of Present Illness Consult date: 01/01/21 History of present illness: HISTORY OF PRESENT ILLNESS: This is a 50-year-old female with a past medical history significant for COPD, CVA/TIA, memory impairment, and dizziness. Patient does not follow any office with a real property evaluator. However she was recently evaluated by Dr. Jolly during a previous hospitalization.. We have been asked to see the patient in consultation for chest pain. Patient examined at the bedside. Patient states she has been having some heartburn related symptoms yesterday. This morning the patient currently denies chest pain or pressure. She denies shortness of breath. Her biggest complaint at the time of examination is a headache and dizziness. EKG reveals sinus mechanism with early repolarization. No evidence of acute ischemia Laboratory data: WBC 9.4. Hemoglobin 12.5. Platelet count 235. Sodium 137. Potassium 4.5. BUN 13. Creatinine 0.58. Troponin negative 3. Current home cardiac medications include Lipitor 20 mg daily, and aspirin 81 mg daily Most recent echocardiogram obtained on 12/10/2020 revealed ejection fraction 55- 60%, trace mitral regurgitation, and trace tricuspid regurgitation REVIEW OF SYSTEMS: At the time of my exam: CONSTITUTIONAL: Denies fever or chills. HEENT: Denies blurred vision, vision changes, or eye pain. Denies hemoptysis CARDIOVASCULAR: Denies chest pain. Denies orthopnea. Denies PND. Denies palpitations RESPIRATORY: Denies shortness of breath. GASTROINTESTINAL: Denies abdominal pain. Denies nausea or vomiting. HEMATOLOGIC: Denies bleeding disorders. GENITOURINARY: Denies any blood in urine. SKIN: Denies pruitis. Denies rash. PHYSICAL EXAM: VITAL SIGNS: Reviewed. GENERAL: Well-developed in no acute distress. HEENT: Head is normocephalic. Pupils are equal, round. Sclerae anicteric. Mucous membranes of the mouth are moist. Neck supple. No JVD or thyromegaly LUNGS: Respirations even and unlabored. Lungs essentially clear to auscultation bilaterally. HEART: Regular rate and rhythm. S1 and S2 heard. ABDOMEN: Soft. Nondistended. Nontender. EXTREMITIES: Normal range of motion. No clubbing or cyanosis. Peripheral pulses intact. No lower extremity edema NEUROLOGIC: Awake and alert. Oriented x 3. ASSESSMENT: Chest pain, atypical, troponin negative 3 COPD CVA/TIA Memory impairment Headaches Dizziness PLAN: An acute coronary event has been ruled out No need to repeat echocardiogram as this was performed last month Obtain lipid panel. Continue Lipitor No further workup from a cardiac standpoint. The patient may follow up outpatient with Dr. Jolly who saw her in consultation last month. We will sign off. Please reconsult if needed. Nurse practitioner note has been reviewed by physician. Signing provider agrees with the documented findings, assessment, and plan of care. 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 History of Any Multi-Drug Resistant Organisms: None Reported Past Surgical History: Section, Tonsillectomy, Tubal Ligation Additional Past Surgical History / Comment(s): Past trach/peg tube, pt thinks some kind of brain/skull surgery while comatose in 2010 at [facility]. Past Anesthesia/Blood Transfusion Reactions: No Reported Reaction Past Psychological History: Anxiety Additional Psychological History / Comment(s): mood disorder. Pt resides alone in her apartment. She owns a cane but does not need to use it. She cannot drive, a friend takes her to [email or web address]. Smoking Status: Current every day smoker Past Alcohol Use History: None Reported Additional Past Alcohol Use History / Comment(s): Pt started smoking in 1989 and cut down to 2 cigarettes a day about 4-5 month ago. Past Drug Use History: None Reported - Past Family History Mother Family Medical History: Cancer Additional Family Medical History / Comment(s): Mother of cancer, pt does not know what type. Father Family Medical History: Cancer Additional Family Medical History / Comment(s): Father is alive and has had 3 different types of cancer but survived them all. Medications and Allergies Home Medications Medication Instructions Recorded Confirmed Type ARIPiprazole [Abilify] 5 mg PO HS 02/29/20 12/29/20 History Aspirin EC [Ecotrin Low Dose] 81 mg PO DAILY 07/16/20 12/29/20 History Vitamin B Complex 1 cap PO DAILY 07/16/20 12/29/20 History Nystatin 100,000 Unit/gm Powd 1 applic TOPICAL BID PRN 09/13/20 12/29/20 History [Mycostatin Powder] Albuterol Nebulized [Ventolin 2.5 mg INHALATION RT-Q4H PRN ml 09/17/20 12/29/20 Rx Nebulized] Dextroamphetamine/Amphetamine 20 mg PO DAILY #3 tab 09/24/20 12/29/20 Rx [Adderall] Atorvastatin Calcium [Lipitor] 20 mg PO HS 10/13/20 12/29/20 History Nitroglycerin Sl Tabs [Nitrostat] 0.4 mg SL Q5M PRN 12/04/20 12/29/20 History Tiotropium Br/Olodaterol HCl 1 puff INHALATION RT-DAILY 12/04/20 12/29/20 History [Stiolto Respimat Inhal Gladys] Meclizine [Antivert] 12.5 mg PO TID 30 Days #90 tab 12/08/20 12/29/20 Rx Sennosides [Senokot] 8.6 mg PO BID 30 Days #60 tab 12/08/20 12/29/20 Rx lamoTRIgine [LaMICtal] 25 mg PO BID 15 Days #30 tab 12/08/20 12/29/20 Rx Lidocaine 5% Patch [Lidoderm 5% 1 patch TOPICAL DAILY patch 12/11/20 12/29/20 Rx Patch] Midodrine [ProAmatine] 5 mg PO AC-TID tab 12/11/20 12/29/20 Rx Cyanocobalamin [Vitamin B-12] 1,000 mcg PO DAILY tab 12/31/20 Rx Allergies Allergy/AdvReac Type Severity Reaction Status Date / Time cat dander Allergy Rash/Hives Verified 12/29/20 07:28 tomato Allergy Rash/Hives Verified 12/29/20 07:28 Physical Exam Vitals: Vital Signs Temp Pulse Pulse Pulse Pulse Resp BP 01/01/21 08:37 72 01/01/21 08:25 78 01/01/21 06:15 01/01/21 04:11 98.5 F 59 L 16 111/69 12/31/20 20:07 98.1 F 91 16 12/31/20 20:00 16 12/31/20 18:21 62 67 76 12/31/20 16:56 74 12/31/20 16:43 70 12/31/20 11:29 97.9 F 56 L 16 BP BP BP BP Pulse Ox 01/01/21 08:37 01/01/21 08:25 01/01/21 06:15 107/78 107/75 115/70 92 L 01/01/21 04:11 96 12/31/20 20:07 129/79 12/31/20 20:00 12/31/20 18:21 118/74 123/79 119/73 12/31/20 16:56 12/31/20 16:43 12/31/20 11:29 128/81 93 L Intake and Output 12/31/20 01/01/21 01/01/21 22:59 06:59 14:59 Intake Total 240 240 Balance 240 240 Intake: Oral 240 240 Other: Voiding Method Toilet # Voids 1 1 Results 12/29/20 05:00 12/29/20 05:00 Cardiac Enzymes 12/31/20 12/31/20 01/01/21 Range/Units 17:22 23:31 05:01 Troponin I <0.012 <0.012 <0.012 (0.000-0.034) ng/mL Current Medications Generic Name Dose Route Start Last Admin Trade Name Freq PRN Reason Stop Dose Admin Acetaminophen 650 mg 12/29/20 06:37 12/30/20 11:55 Acetaminophen Tab 325 Mg Tab PO 650 mg Q6HR PRN Administration Mild Pain or Fever > 100.5 Albuterol Sulfate 2.5 mg 12/29/20 06:41 01/01/21 08:24 Albuterol Nebulized 2.5 Mg/3 Ml INHALATION 2.5 mg RT-Q4H PRN Administration Shortness Of Breath Aripiprazole 5 mg 12/29/20 21:00 12/31/20 20:11 Aripiprazole 5 Mg Tab PO 5 mg HS VILLA Administration Aspirin 81 mg 12/29/20 09:00 01/01/21 08:20 Aspirin 81 Mg PO 81 mg DAILY VILLA Administration Atorvastatin Calcium 20 mg 12/29/20 21:00 12/31/20 20:10 Atorvastatin 20 Mg Tab PO 20 mg HS VILLA Administration Cyanocobalamin 1,000 mcg 12/29/20 14:45 01/01/21 08:20 Cyanocobalamin 500 Mcg Tab PO 1,000 mcg DAILY VILLA Administration Divalproex Sodium 250 mg 12/29/20 21:00 01/01/21 08:20 Divalproex 250 Mg Tablet.Dr PO 250 mg BID VILLA Administration Famotidine 20 mg 12/29/20 09:00 01/01/21 08:20 Famotidine 20 Mg Tab PO 20 mg BID VILLA Administration Formoterol Fumarate 20 mcg 12/29/20 08:00 01/01/21 08:25 Formoterol Fumarate 20 Mcg/2 Ml Nebu INHALATION Not Given RT-BID VILLA Gabapentin 100 mg 12/29/20 16:00 01/01/21 08:20 Gabapentin 100 Mg Cap PO 100 mg TID VILLA Administration Sodium Chloride 1,000 mls @ 50 mls/hr 12/29/20 08:30 12/31/20 21:29 Saline 0.9% IV Not Given .Q20H VILLA Ipratropium [place] 0.5 mg 12/29/20 08:00 01/01/21 08:25 Ipratropium 0.5 Mg/2.5 Ml Nebu INHALATION Not Given RT-QID [facility] Lidocaine 1 patch 12/29/20 09:00 01/01/21 08:54 Lidocaine 5% Patch TOPICAL 1 patch DAILY VILLA Administration Meclizine HCl 12.5 mg 12/29/20 09:00 01/01/21 08:20 Meclizine 12.5 Mg Tab PO 12.5 mg TID VILLA Administration Methylprednisolone Sodium Succinate 40 mg 12/29/20 08:30 01/01/21 08:20 Methylprednisolone Sod Succi 40 Mg/Ml 1 Ml Vial IV 40 mg Q8HR VILLA Administration Midodrine 5 mg 12/29/20 07:30 01/01/21 08:20 Midodrine 5 Mg Tab PO 5 mg AC-TID VILLA Administration Naloxone HCl 0.2 mg 12/29/20 06:37 Naloxone 0.4 Mg/Ml 1 Ml Vial IV Q2M PRN Opioid Reversal Dextroamphetamine/ 20 mg 12/29/20 09:00 01/01/21 08:52 Amphetamine [ PO Not Given Adderall] DAILY [facility] Nystatin 1 applic 12/29/20 09:00 01/01/21 08:21 Nystatin 100,000 Unit/Gm Powd 15 Gm TOPICAL 1 applic BID VILLA Administration Ondansetron HCl 4 mg 12/30/20 17:44 12/30/20 17:56 Ondansetron 4 Mg/2 Ml Vial IVP 4 mg Q6HR PRN Administration Nausea And Vomiting Senna 8.6 mg 12/29/20 09:00 01/01/21 08:20 Sennosides 8.6 Mg Tab PO 8.6 mg BID VILLA Administration Intake and Output 12/31/20 01/01/21 01/01/21 22:59 06:59 14:59 Intake Total 240 240 Balance 240 240 Intake: Oral 240 240 Other: Voiding Method Toilet # Voids 1 1 12/29/20 05:00 12/29/20 05:00
[2021-01-01] MEDS: ACETAMINOPHEN TAB 325 MG TAB PO PRN (14:34)
--- NOTE | 2021-01-01 15:09 | P.PN ---
Subjective Progress Note Date: 12/31/20 Patient was seen for a follow-up. Initial consultation performed by Dr. Nomi Rea. Please refer to his note for details. Patient has been admitted to the hospital for recurrent symptoms. Patient has migraines, dizziness, pain in the neck, ear ache, visual disturbance on the right side. Patient complains of bad headache, which starts from back of the head to the top to the frontal region. She rates it 7-8/10. She gets nausea but no vomiting. She is sensitive to the light but not to the noise. Patient states that she has only 4 or 5 days in a month that she is headache free. Patient in the last hospitalization was switched from Keppra to Lamictal. Patient has reported that her dizziness got worse with Lamictal therefore it. When patient was started on Depakote for mood stabilization by Dr. Nomi Rea. Patient has not had any seizures. Patient had undergone some rheumatologic workup, in which her double-stranded DNA is negative, Rajni-1 antibodies negative, CBC, ESR 21 borderline, CMP is normal. C-reactive protein 8.4 and 5.4 which are both normal. Troponin negative. Coronal virus PCR negative. Her last hemoglobin A1c 5.6 on 03/02/2020. Her last B12 270 for which she is already on replacement, folate 9.9. JUDD negative. Objective - Vital Signs Vital signs: Vital Signs Temp 97.9 F 12/31/20 11:29 Pulse 74 12/31/20 16:56 Resp 16 12/31/20 11:29 BP 128/81 12/31/20 11:29 Pulse Ox 93 L 12/31/20 11:29 Intake & Output 12/30/20 12/31/20 12/31/20 18:59 06:59 18:59 Intake Total 240 640 600 Balance 240 640 600 Intake: Oral 240 640 600 Other: Voiding Method Toilet # Voids 3 3 2 - Exam On examination patient is a middle aged female, in no acute distress. Patient is alert and awake oriented. She has hoarse voice. Her speech and language functions are normal. On cranial nerve examination pupils are round and reacting, visual newman appears full. Her face is symmetric. Tongue protrudes the midline. On muscle strength testing the strength is normal on the left side. On the right side, her deltoid is 5-, biceps 5-, triceps 4+, director corporate communications 5- , hip flexion 4-ankle dorsiflexion 5. Sensory to touch is decreased on the right side. Tone and bulk of muscles normal. Gait deferred. - Labs CBC & Chem 7: 12/29/20 05:00 12/29/20 05:00 Labs: Abnormal Lab Results - Last 24 Hours (Table) 12/31/20 Range/Units 06:08 ESR 21 H (0-20) mm/hr Assessment and Plan Assessment: * Chronic myofascial pain involving head, neck, low back pain, dizziness * Chronic recurrent vertigo, possibly from peripheral vestibular dysfunction. * Chronic daily headaches. * Chronic cervicalgia. Plan: * Recommend ENT as outpatient for VNG/ENG, to evaluate for peripheral vestibular dysfunction. * We will check rheumatoid factor. Her JUDD, dsDNA, ESR and CRP are normal. We will increase gabapentin to 200 mg 3 times a day. Also suggest patient follow-up with staff radiologist to rule out fibromyalgia and may need appropriate treatment. * Patient should also follow up with neurologist as outpatient for management of her chronic migraines. She may benefit from monthly injectables like Emgality or Aimovig to help with her headaches.
[2021-01-01] MEDS: SODIUM CHLORIDE 0.9% 1,000 ML IV SCH (17:47)
[2021-01-01 18:31] LABS: LDL Cholesterol,Calculated 89.8 mg/dL (0.0-131.0); VLDL Calculation 36.2 mg/dL (5.00-40.00)
[2021-01-01] MEDS: ATORVASTATIN 20 MG TAB PO SCH (20:42)
[2021-01-01] MEDS: ARIPiprazole 5 MG TAB PO SCH (20:42)
--- NOTE | 2021-01-01 23:23 | DS ---
DISCHARGE SUMMARY DISCHARGE DIAGNOSES: 1. Chronic back pain. 2. Cervical occipital neuritis. 3. Generalized debility. 4. Ataxia. 5. Atypical chest pain. 6. Chronic dizziness. 7. Mood disorders. 8. Nicotine addiction. 9. Chronic obstructive pulmonary disease. 10.Attention deficit hyperactivity disorder. 11.Dyslipidemia. HOME MEDICINES: 1. Vitamin B12 1000 mcg daily. 2. Abilify 5 at bedtime. 3. Aspirin 81 mg daily. 4. Vitamin B complex daily. 5. Nystatin powder topically b.i.d. 6. Ventolin nebulized q.i.d. 7. Adderall 20 daily. 8. Lipitor 20 daily. 9. Stiolto inhaler 1 puff b.i.d. 10.Antivert 12.5 t.i.d. 11.Lamictal 25 b.i.d. 12.Senokot 8.6 b.i.d. 13.Lidoderm patch to her back daily. 14.Midodrine 5 mg before meals t.i.d. CONDITION: Stable. PROGNOSIS: Guarded. Cleared by renal physician, neurologist, cafe server for chronic dizziness, chronic chest pain. Orthostatic changes. Will have to treat her with midodrine, low dose. Compliance with medicines was distressed with her. Followup as an outpatient. MMDAVIDL / IJN: [id number] /
--- NOTE | 2021-01-02 00:08 | P.PN ---
Subjective Progress Note Date: 01/01/21 01/01/2021: Patient complaining of a very severe headache, rating 10/10, crying. 12/31/2020: Patient was seen for a follow-up. Initial consultation performed by Dr. Nomi Rea. Please refer to his note for details. Patient has been admitted to the hospital for recurrent symptoms. Patient has migraines, dizziness, pain in the neck, ear ache, visual disturbance on the right side. Patient complains of bad headache, which starts from back of the head to the top to the frontal region. She rates it 7-8/10. She gets nausea but no vomiting. She is sensitive to the light but not to the noise. Patient states that she has only 4 or 5 days in a month that she is headache free. Patient in the last hospitalization was switched from Keppra to Lamictal. Patient has reported that her dizziness got worse with Lamictal therefore it. When patient was started on Depakote for mood stabilization by Dr. Nomi Rea. Patient has not had any seizures. Patient had undergone some rheumatologic workup, in which her double-stranded DNA is negative, Rajni-1 antibodies negative, CBC, ESR 21 borderline, CMP is normal. C-reactive protein 8.4 and 5.4 which are both normal. Troponin negative. Coronal virus PCR negative. Her last hemoglobin A1c 5.6 on 03/02/2020. Her last B12 270 for which she is already on replacement, folate 9.9. JUDD negative. Objective - Vital Signs Vital signs: Vital Signs Temp 98.3 F 01/01/21 11:53 Pulse 74 01/01/21 16:20 Resp 18 01/01/21 11:53 BP 115/76 01/01/21 11:53 Pulse Ox 95 01/01/21 11:53 Intake & Output 12/31/20 01/01/21 01/01/21 18:59 06:59 18:59 Intake Total 600 480 800 Balance 600 480 800 Intake: Oral 600 480 800 Other: Voiding Method Toilet # Voids 2 1 3 - Exam Patient in distress because of headache. Patient actually crying. Patient needs further workup. - Labs CBC & Chem 7: 12/29/20 05:00 12/29/20 05:00 Assessment and Plan Assessment: * Persistent cephalgia, severe, unclear cause. Rule out pseudotumor cerebri. * Chronic myofascial pain involving head, neck, low back pain, dizziness * Chronic recurrent vertigo, possibly from peripheral vestibular dysfunction. * Chronic daily headaches. * Chronic cervicalgia. Plan: * Lumbar puncture to check for opening pressure, to evaluate for possible pseudotumor cerebri. Spinal fluid will be sent for analysis to rule out any inflammatory or infectious process or vasculitis. Spoke to patient, she agreed to proceed with lumbar puncture. We will consult anesthesia. If the opening pressure is high, would recommend draining at least 15-20 mL of spinal fluid to bring closing pressure to <19 cm water. * Recommend ENT as outpatient for VNG/ENG, to evaluate for peripheral vestibular dysfunction. * We will check rheumatoid factor. Her JUDD, dsDNA, ESR and CRP are normal. We will increase gabapentin to 200 mg 3 times a day. Also suggest patient follow-up with plastics fabrication supervisor to rule out fibromyalgia and may need ap propriate treatment. * Patient should also follow up with neurologist as outpatient for management of her chronic migraines. She may benefit from monthly injectables like Emgality or Aimovig to help with her headaches.
[2021-01-02] MEDS: methylPREDNISolone SOD SUCCI 40 MG/ML 1 ML VIAL IV SCH ×2 (08:17→16:14)
[2021-01-02] MEDS: SENNOSIDES 8.6 MG TAB PO SCH ×2 (08:17→20:29)
[2021-01-02] MEDS: CYANOCOBALAMIN 500 MCG TAB PO SCH (08:18)
[2021-01-02] MEDS: FAMOTIDINE 20 MG TAB PO SCH ×2 (08:18→20:29)
[2021-01-02] MEDS: GABAPENTIN 100 MG CAP PO SCH ×3 (08:18→20:29)
[2021-01-02] MEDS: MECLIZINE 12.5 MG TAB PO SCH ×3 (08:19→20:29)
[2021-01-02] MEDS: MIDODRINE 5 MG TAB PO SCH ×3 (08:19→16:13)
[2021-01-02] MEDS: DIVALPROEX 250 MG TABLET.DR PO SCH ×2 (08:19→20:29)
[2021-01-02] MEDS: Dextroamphetamine/Amphetamine [Adderall] PO SCH (08:20)
[2021-01-02] MEDS: LIDOCAINE 5% PATCH TOPICAL SCH (08:20)
[2021-01-02] MEDS: NYSTATIN 100,000 UNIT/GM POWD 15 GM TOPICAL SCH ×2 (08:20→20:30)
[2021-01-02] MEDS: FORMOTEROL FUMARATE 20 MCG/2 ML NEBU INHALATION SCH ×2 (08:42→20:35)
[2021-01-02] MEDS: IPRATROPIUM 0.5 MG/2.5 ML NEBU INHALATION SCH ×4 (08:42→20:35)
[2021-01-02] MEDS ORDERED: LACTATED RINGERS 1,000 ML IV ONE ×2 (11:09)
[2021-01-02] MEDS ORDERED: fentaNYL (PF) 50 MCG/ML 2 ML AMP IVP ONE (11:32)
--- NOTE | 2021-01-02 11:51 | P.PCN ---
Date of Procedure: 01/02/21 Description of Procedure: Preoperative diagnosis: Pseudotumor cerebri Timeout 1132 End procedure 1148 Anesthesia local infiltration with lidocaine 1% 2 mL., moderate sedation with fentanyl 50 mcg 16 min sedation time Condition: stable Complication: none. Description of the procedure procedure risk and benefits discussed with the patient and family, consent signed. Patient was taken to the procedure area placed in left lateral position. Local infiltration of the skin and subcutaneous tissue with lidocaine 1%. A 20-gauge Quincke-type needle advanced slowly at L4- 5 interlaminar space.opening pressure was measured at 24 cm of water. CSF was collected. A total of 8 ML of clear cerebrospinal fluid collected in 4 tubes, then closing pressure was measured at 17 cm of water. Then, the needle was removed and a Band-Aid applied and patient tolerated the procedure well without any complications.
[2021-01-02] MEDS: ACETAMINOPHEN TAB 325 MG TAB PO PRN ×2 (12:51→19:09)
[2021-01-02] MEDS: SODIUM CHLORIDE 0.9% 1,000 ML IV SCH (14:35)
[2021-01-02 16:35] LABS: Glucose,CSF 54 mg/dL (40-70); Total Protein,CSF 58 mg/dL (12-60)
[2021-01-02 16:38] LABS: Appearance,CSF Clear; CSF Tube Number 4; CSF Tube Volume 2.1; Nucleated Cells, CSF 3 u/L (0-5); Red Blood Cell,CSF 0 u/L (0-10)
--- NOTE | 2021-01-02 17:07 | PN ---
PROGRESS NOTE A 50-year-old white female who had spinal tap today per neurology's recommendations. Waiting for final clearance for Neurology for severe 10/10 pain. The patient had a rheumatology workup which is negative. She was suppose to get spinal tap today before clearance. Temperature 98.9, heart rate 74, blood pressure 115/76. Lumbar pressures checking for possible pseudotumor cerebri. Spinal fluid will be sent out. We will wait for those results prior to her going home. She will have to have an outpatient ENT workup and as well as Neurology. Please see further orders. MMODL / IJN: [id number] /
[2021-01-02] MEDS: ARIPiprazole 5 MG TAB PO SCH (20:29)
[2021-01-02] MEDS: ATORVASTATIN 20 MG TAB PO SCH (20:29)
--- NOTE | 2021-01-02 23:35 | P.PN ---
Subjective Progress Note Date: 01/02/21 01/02/2021: Patient still complaining of headache. Patient underwent diagnostic and therapeutic lumbar puncture. Lumbar puncture performed by an anesthesiologist in lateral recumbent position. Patient's opening pressure was 24, and 8 mL of spinal fluid were drained. Closing pressure was 17 cm. CSF gl ucose 54, protein 58 (12-60). There are 0 RBC, 3 WBC. Cultures pending. 01/01/2021: Patient complaining of a very severe headache, rating 10/10, crying. 12/31/2020: Patient was seen for a follow-up. Initial consultation performed by Dr. Nomi Rea. Please refer to his note for details. Patient has been admitted to the hospital for recurrent symptoms. Patient has migraines, dizziness, pain in the neck, ear ache, visual disturbance on the right side. Patient complains of bad headache, which starts from back of the head to the top to the frontal region. She rates it 7-8/10. She gets nausea but no vomiting. She is sensitive to the light but not to the noise. Patient states that she has only 4 or 5 days in a month that she is headache free. Patient in the last hospitalization was switched from Keppra to Lamictal. Patient has reported that her dizziness got worse with Lamictal therefore it. When patient was started on Depakote for mood stabilization by Dr. Nomi Rea. Patient has not had any seizures. Patient had undergone some rheumatologic workup, in which her double-stranded DNA is negative, Rajni-1 antibodies negative, CBC, ESR 21 borderline, CMP is normal. C-reactive protein 8.4 and 5.4 which are both normal. Troponin negative. Coronal virus PCR negative. Her last hemoglobin A1c 5.6 on 03/02/2020. Her last B12 270 for which she is already on replacement, folate 9.9. JUDD negative. Objective - Vital Signs Vital signs: Vital Signs Temp 98.2 F 01/02/21 13:15 Pulse 82 01/02/21 16:35 Resp 16 01/02/21 13:15 BP 105/72 01/02/21 13:15 Pulse Ox 99 01/02/21 13:15 Intake & Output 01/01/21 01/02/21 01/02/21 18:59 06:59 18:59 Intake Total 800 150 Balance 800 150 Weight 104.326 kg Intake: IV 150 Oral 800 Other: # Voids 3 2 - Exam Patient is laying comfortably in the bed. Still complaining of headache. Examination otherwise unchanged. - Labs CBC & Chem 7: 12/29/20 05:00 12/29/20 05:00 Assessment and Plan Assessment: * Persistent cephalgia, severe, unclear cause. No evidence of pseudotumor cerebri. CSF opening pressure 24 cm which is just borderline, doubt will be symptomatic. * Possible occipital neuralgia. * Chronic myofascial pain involving head, neck, low back pain, dizziness * Chronic recurrent vertigo, possibly from peripheral vestibular dysfunction. * Chronic daily headaches. * Chronic cervicalgia. Plan: * Lumbar puncture was performed, opening pressure 24 cm which is borderline. 8 mL of spinal fluid were drained. Closing pressure 17 cm. * CSF glucose 54, CSF protein 58 (12-60). Spinal fluid will be sent for anal ysis to rule out any inflammatory or infectious process or vasculitis. Appreciate anesthesiology input. * Suggest bilateral occipital nerve block for possible occipital neuralgia. This can be performed by pain management outpatient. * Recommend ENT as outpatient for VNG/ENG, to evaluate for peripheral vestibular dysfunction. * Rheumatoid factor negative. Her JUDD, dsDNA, ESR and CRP are normal. We will increase gabapentin to 200 mg 3 times a day. Also suggest patient follow-up with service engine repairer to rule out fibromyalgia and may need appropriate treatment. * Patient should also follow up with neurologist as outpatient for management of her chronic migraines. She may benefit from monthly injectables like Emgality or Aimovig and perhaps bilateral occipital nerve block, to help with her headaches.
[2021-01-03 04:38] VITALS: BP 111/79; RESP 18; TEMP 97.8
[2021-01-03] MEDS: FORMOTEROL FUMARATE 20 MCG/2 ML NEBU INHALATION SCH (07:24)
[2021-01-03] MEDS: IPRATROPIUM 0.5 MG/2.5 ML NEBU INHALATION SCH (07:24)
[2021-01-03 07:27] VITALS: PULSE 76
[2021-01-03] MEDS: SENNOSIDES 8.6 MG TAB PO SCH (09:29)
[2021-01-03] MEDS: CYANOCOBALAMIN 500 MCG TAB PO SCH (09:29)
[2021-01-03] MEDS: DIVALPROEX 250 MG TABLET.DR PO SCH (09:30)
[2021-01-03] MEDS: FAMOTIDINE 20 MG TAB PO SCH (09:30)
[2021-01-03] MEDS: MIDODRINE 5 MG TAB PO SCH (09:30)
[2021-01-03] MEDS: ASPIRIN 81 MG PO SCH (09:30)
[2021-01-03] MEDS: MECLIZINE 12.5 MG TAB PO SCH (09:30)
[2021-01-03] MEDS: GABAPENTIN 100 MG CAP PO SCH (09:31)
== END 2021-01-03 09:40 | disposition home health service (06) | DRG 552 ==
LOC: EC 04:03 → 6NMEDSUR 06:37 → 1SOBS 07:43 → 5NMEDONC 15:28 → OBSVTOIN 12-31 08:18
PROVIDERS: ADMIT Family Medicine; ATTEND Family Medicine
PROC: 009U3ZX Drainage of Spinal Canal, Percutaneous Approach, Diagnostic (ICD-10-PCS; principal; 2021-01-02 12:00)
PROC: 009U3ZZ Drainage of Spinal Canal, Percutaneous Approach (ICD-10-PCS; principal; 2021-01-02 12:00)
DX: M54.81 Occipital neuralgia (principal); I69.351 Hemiplegia and hemiparesis following cerebral infarction affecting right dominant side; E53.8 Deficiency of other specified B group vitamins; F31.9 Bipolar disorder, unspecified; I25.119 Atherosclerotic heart disease of native coronary artery with unspecified angina pectoris; J44.9 Chronic obstructive pulmonary disease, unspecified; Z20.822 Contact with and (suspected) exposure to COVID-19; G89.4 Chronic pain syndrome; G43.909 Migraine, unspecified, not intractable, without status migrainosus; M79.18 Myalgia, other site; I10 Essential (primary) hypertension; I95.1 Orthostatic hypotension; M50.30 Other cervical disc degeneration, unspecified cervical region; M47.817 Spondylosis without myelopathy or radiculopathy, lumbosacral region; M40.56 Lordosis, unspecified, lumbar region; I08.1 Rheumatic disorders of both mitral and tricuspid valves; F90.9 Attention-deficit hyperactivity disorder, unspecified type; E78.5 Hyperlipidemia, unspecified; R27.0 Ataxia, unspecified; R29.6 Repeated falls; H91.91 Unspecified hearing loss, right ear; H54.7 Unspecified visual loss; F17.210 Nicotine dependence, cigarettes, uncomplicated; Z79.82 Long term (current) use of aspirin; Z79.899 Other long term (current) drug therapy; Z90.89 Acquired absence of other organs; Z98.51 Tubal ligation status; Z98.891 History of uterine scar from previous surgery; Z87.820 Personal history of traumatic brain injury; Z98.890 Other specified postprocedural states; Z91.018 Allergy to other foods; Z91.048 Other nonmedicinal substance allergy status; Z80.9 Family history of malignant neoplasm, unspecified
CPT/HCPCS: 36415; 62270; 70450; 70496; 70498; 72052; 72100; 72125; 80053; 80061; 82040; 82042; 82164; 82550; 82553; 82784; 82945; 83916; 84157; 84484; 85025; 85652; 86038; 86140; 86225; 86235; 86431; 87070; 87205; 87252; 87635; 87801; 89050; 93005; 94640; 96374; 99285

== ENCOUNTER 2021-01-03 12:04 | Emergency (ER) | payer MEDICARE, OTHER ==
--- NOTE | 2021-01-03 12:32 | ED ---
General Adult HPI - General Chief complaint: Dizziness Stated complaint: headache/nausea/dizzy/sob Time Seen by Provider: 01/03/21 12:10 Source: patient, RN notes reviewed, old records reviewed Mode of arrival: ambulatory Limitations: no limitations - History of Present Illness Initial comments: This is a 50-year-old female presents emergency Department with chronic dizziness. Patient has been in the emergency department 6 times this year for dizziness. Patient was just discharged from the hospital 2 hours ago after having spent 3 days in the hospital. Patient states she seen a neurologist and had a lumbar puncture recently and was told they could not find a reason for her dizziness. Patient states she's a little off balance when she walks however she has not fallen. Patient also complains of a headache. Patient denies any vomiting but states she feels nauseated. Patient denies any diarrhea. Patient denies any abdominal pain. Patient denies any chest pain or palpitations. Patient denied shortness of breath to me. - Related Data Home Medications Medication Instructions Recorded Confirmed ARIPiprazole [Abilify] 5 mg PO HS 02/29/20 12/29/20 Aspirin EC [Ecotrin Low Dose] 81 mg PO DAILY 07/16/20 12/29/20 Vitamin B Complex 1 cap PO DAILY 07/16/20 12/29/20 Nystatin 100,000 Unit/gm Powd 1 applic TOPICAL BID PRN 09/13/20 12/29/20 [Mycostatin Powder] Atorvastatin Calcium [Lipitor] 20 mg PO HS 10/13/20 12/29/20 Nitroglycerin Sl Tabs [Nitrostat] 0.4 mg SL Q5M PRN 12/04/20 12/29/20 Tiotropium Br/Olodaterol HCl 1 puff INHALATION RT-DAILY 12/04/20 12/29/20 [Stiolto Respimat Inhal [place]] Previous Rx's Medication Instructions Recorded Albuterol Nebulized [Ventolin 2.5 mg INHALATION RT-Q4H PRN ml 09/17/20 Nebulized] Dextroamphetamine/Amphetamine 20 mg PO DAILY #3 tab 09/24/20 [Adderall] Meclizine [Antivert] 12.5 mg PO TID 30 Days #90 tab 12/08/20 Sennosides [Senokot] 8.6 mg PO BID 30 Days #60 tab 12/08/20 lamoTRIgine [LaMICtal] 25 mg PO BID 15 Days #30 tab 12/08/20 Lidocaine 5% Patch [Lidoderm 5% 1 patch TOPICAL DAILY patch 12/11/20 Patch] Midodrine [ProAmatine] 5 mg PO AC-TID tab 12/11/20 Cyanocobalamin [Vitamin B-12] 1,000 mcg PO DAILY tab 12/31/20 Allergies Allergy/AdvReac Type Severity Reaction Status Date / Time cat dander Allergy Rash/Hives Verified 01/03/21 12:07 tomato Allergy Rash/Hives Verified 01/03/21 12:07 Review of Systems ROS Statement: Those systems with pertinent positive or pertinent negative responses have been documented in the HPI. ROS Other: All systems not noted in ROS Statement are negative. 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 History of Any Multi-Drug Resistant Organisms: None Reported Past Surgical History: Section, Tonsillectomy, Tubal Ligation Additional Past Surgical History / Comment(s): Past trach/peg tube, pt thinks so me kind of brain/skull surgery while comatose in 2010 at [facility]. Past Anesthesia/Blood Transfusion Reactions: No Reported Reaction Past Psychological History: Anxiety Smoking Status: Current every day smoker Past Alcohol Use History: None Reported Past Drug Use History: None Reported - Past Family History Mother Family Medical History: Cancer Additional Family Medical History / Comment(s): Mother of cancer, pt does not know what type. Father Family Medical History: Cancer Additional Family Medical History / Comment(s): Father is alive and has had 3 different types of cancer but survived them all. General Exam - General Exam Comments Initial Comments: GENERAL: Patient is well-developed and well-nourished. Patient is nontoxic and well- hydrated and is in mild distress. ENT: Neck is soft and supple. No significant lymphadenopathy is noted. Oropharynx is clear. Moist mucous membranes. Neck has full range of motion without eliciting any pain. EYES: The sclera were anicteric and conjunctiva were pink and moist. Extraocular movements were intact and pupils were equal round and reactive to light. Eyelids were unremarkable. PULMONARY: Unlabored respirations. Good breath sounds bilaterally. No audible rales rhonchi or wheezing was noted. CARDIOVASCULAR: There is a regular rate and rhythm without any murmurs gallops or rubs. ABDOMEN: Soft and nontender with normal bowel sounds. SKIN: Skin is clear with no lesions or rashes and otherwise unremarkable. NEUROLOGIC: Patient is alert and oriented x3. Cranial nerves II through XII are grossly intact. Motor and sensory are also intact. Normal speech, volume and content. Symmetrical smile. Finger to nose testing is normal bilaterally MUSCULOSKELETAL: Normal extremities with adequate strength and full range of motion. LYMPHATICS: No significant lymphadenopathy is noted PSYCHIATRIC: Normal psychiatric evaluation. Limitations: no limitations Course Vital Signs 01/03/21 12:07 Temperature 98.1 F Pulse Rate 96 Respiratory 16 Rate Blood Pressure 122/89 O2 Sat by Pulse 100 Oximetry Medical Decision Making - Medical Decision Making EKG shows normal sinus rhythm at 71 bpm VA interval is 122 QRS is 80 QT interval 370 QTC is 410. Patient's EKG shows no ST segment elevation or depression. Patient's been on steroids between the December 29 to January 02. This could explain the elevated white count. Patient was sleeping in the emergency department feeling considerably better. Again Dr. Bocanegra wanted the patient to follow-up with her as an outpatient. - Lab Data Result diagrams: 01/03/21 12:38 01/03/21 12:38 Lab Results 01/03/21 01/03/21 Range/Units 12:38 12:38 WBC 19.6 H (3.8-10.6) k/uL RBC 4.91 (3.80-5.40) m/uL Hgb 15.2 (11.4-16.0) gm/dL Hct 45.0 (34.0-46.0) % MCV 91.6 (80.0-100.0) fL MCH 31.0 (25.0-35.0) pg MCHC 33.8 (31.0-37.0) g/dL RDW 13.5 (11.5-15.5) % Plt Count 300 (150-450) k/uL MPV 7.9 Neutrophils % (Manual) 69 % Lymphocytes % (Manual) 24 % Monocytes % (Manual) 6 % Eosinophils % (Manual) 1 % Neutrophils # (Manual) 13.52 H (1.3-7.7) k/uL Lymphocytes # (Manual) 4.70 (1.0-4.8) k/uL Monocytes # (Manual) 1.18 H (0-1.0) k/uL Eosinophils # (Manual) 0.20 (0-0.7) k/uL Nucleated RBCs 0 (0-0) /100 WBC Manual Slide Review Performed RBC Morphology Normal Sodium 142 (137-145) mmol/L Potassium 3.6 (3.5-5.1) mmol/L Chloride 102 (98-107) mmol/L Carbon Dioxide 26 (22-30) mmol/L Anion Gap 14 mmol/L BUN 23 H (7-17) mg/dL Creatinine 0.77 (0.52-1.04) mg/dL Est GFR (CKD-EPI)AfAm >90 (>60 ml/min/1.73 sqM) Est GFR (CKD-EPI)NonAf >90 (>60 ml/min/1.73 sqM) Glucose 124 H (74-99) mg/dL Calcium 9.8 (8.4-10.2) mg/dL Total Bilirubin 0.4 (0.2-1.3) mg/dL AST 25 (14-36) U/L ALT 49 H (4-34) U/L Alkaline Phosphatase 98 (38-126) U/L Total Protein 7.6 (6.3-8.2) g/dL Albumin 4.5 (3.5-5.0) g/dL Disposition Clinical Impression: Dizziness, Headache Disposition: HOME SELF-CARE Condition: Good Instructions (If sedation given, give patient instructions): Dizziness (ED) Is patient prescribed a controlled substance at d/c from ED?: No Referrals: Chris Bocanegra MD [Primary Care Provider] - 1-2 days Time of Disposition: 13:54
[2021-01-03 12:56] LABS: HGB 15.2 gm/dL (11.4-16.0); MCHC 33.8 g/dL (31.0-37.0); MCV 91.6 fL (80.0-100.0); Mean Platelet Volume 7.9; Platelet Count 300 k/uL (150-450); RBC 4.91 m/uL (3.80-5.40); RDW 13.5 % (11.5-15.5); WBC 19.6 k/uL (3.8-10.6)
[2021-01-03 13:07] LABS: ALT 49 U/L (4-34); AST 25 U/L (14-36); African American GFR (CKD) >90 (>60 ml/min/1.73 sqM); Albumin 4.5 g/dL (3.5-5.0); Alkaline Phosphatase 98 U/L (38-126); Anion Gap 14 mmol/L; Blood Urea Nitrogen 23 mg/dL (7-17); Calcium 9.8 mg/dL (8.4-10.2); Carbon Dioxide 26 mmol/L (22-30); Chloride 102 mmol/L (98-107); Glucose 124 mg/dL (74-99); Non-African American GFR(CKD) >90 (>60 ml/min/1.73 sqM); Potassium 3.6 mmol/L (3.5-5.1); Sodium 142 mmol/L (137-145); Total Bilirubin 0.4 mg/dL (0.2-1.3); Total Protein 7.6 g/dL (6.3-8.2)
[2021-01-03 13:25] LABS: Monocytes # (M) 1.18 k/uL (0-1.0); Neutrophils # (M) 13.52 k/uL (1.3-7.7); Neutrophils % (M) 69 %; Nucleated Red Blood Cells 0 /100 WBC (0-0); Total Cells Counted 100
--- NOTE | 2021-01-03 13:54 | XR ---
EXAMINATION TYPE: XR chest 1V portable DATE OF EXAM: 01/03/2021 COMPARISON: NONE HISTORY: Shortness of breath TECHNIQUE: Single view of the chest is submitted. FINDINGS: Scattered senescent parenchymal changes noted. Hyperinflation compatible with COPD. No evidence for infiltrate. No evidence for atelectasis. Heart size is stable. Mediastinal structures are stable and grossly unremarkable. No evidence for hilar prominence. Degenerative changes dorsal spine. IMPRESSION: 1. No evidence for acute pulmonary disease.
[2021-01-03 14:09] VITALS: BP 128/88; PULSE 81; RESP 17; TEMP 98.2
[2021-01-03 14:18] LABS: Appearance,Urine Cloudy (Clear); Bacteria,Urine Rare /hpf; Bilirubin,Urine Negative (Negative); Blood,Urine Negative (Negative); Calcium Oxalate Crystals,Urine Occasional /hpf; Color,Urine Yellow; Glucose,Urine (UA) Negative (Negative); Hyaline Casts,Urine 1 /lpf (0-2); Ketones,Urine Negative (Negative); Leukocyte Esterase,Urine Trace (Negative); Mucus,Urine Moderate /hpf; Nitrite,Urine Negative (Negative); Protein,Urine 1+ (Negative); Specific Gravity,Urine 1.041 (1.001-1.035); Squamous Epithelial Cell,Urine 5 /hpf (0-4); Urobilinogen,Urine <2.0 mg/dL (<2.0); WBC,Urine 7 /hpf (0-5)
== END 2021-01-03 14:08 | disposition home or self-care (01) ==
LOC: EC 12:04
DX: R42 Dizziness and giddiness (principal); R51.9 Headache, unspecified; F41.9 Anxiety disorder, unspecified; F17.200 Nicotine dependence, unspecified, uncomplicated; J44.9 Chronic obstructive pulmonary disease, unspecified; Z86.73 Personal history of transient ischemic attack (TIA), and cerebral infarction without residual deficits
CPT/HCPCS: 36415; 93005; 80053; 85025; 81001; 71045; 99285; 96374; J1790

== ENCOUNTER 2021-01-07 08:58 | Emergency (ER) | payer MEDICARE, OTHER ==
[2021-01-07 09:03] VITALS: RESP 16; TEMP 98.1
[2021-01-07] MEDS ORDERED: diphenhydrAMINE 50 MG/ML 1 ML VIAL IVP STA (09:34)
[2021-01-07] MEDS ORDERED: SODIUM CHLORIDE 0.9% 500 ML 500 ML IV STA (09:34)
[2021-01-07] MEDS ORDERED: MECLIZINE 12.5 MG TAB PO STA (09:34)
--- NOTE | 2021-01-07 09:44 | ED ---
Headache HPI - General Mode of arrival: EMS Limitations: no limitations <Ricarda Mas - Last Filed: 01/07/21 10:15> <Saroj Wallaceah Alida - Last Filed: 01/15/21 02:59> - General Chief Complaint: Headache Stated Complaint: Nausea/dizziness/ear pain Time Seen by Provider: 01/07/21 09:05 - History of Present Illness Initial Comments: 50yo female presenting for headaches, dizziness, right ear pain. Patient states that she has had dizziness and headaches for quite a few weeks she states she has been here multiple occasions and has not had any answers. Patient states she does have right ear pain she denies fevers chills general malaise cough shortness of breath. Patient denies any new weakness sensation deficits visual changes or loss. She denies any speech changes. She denies any new falls or injuries. Patient denies any vomiting states she's had occasional nausea. Patient denies any chest pain shortness of breath. Upon arrival she appears well nontoxic distress she is brought in by EMS (Ricarda Mas) - Related Data Home Medications Medication Instructions Recorded Confirmed ARIPiprazole [Abilify] 5 mg PO HS 02/29/20 12/29/20 Aspirin EC [Ecotrin Low Dose] 81 mg PO DAILY 07/16/20 12/29/20 Vitamin B Complex 1 cap PO DAILY 07/16/20 12/29/20 Nystatin 100,000 Unit/gm Powd 1 applic TOPICAL BID PRN 09/13/20 12/29/20 [Mycostatin Powder] Atorvastatin Calcium [Lipitor] 20 mg PO HS 10/13/20 12/29/20 Nitroglycerin Sl Tabs [Nitrostat] 0.4 mg SL Q5M PRN 12/04/20 12/29/20 Tiotropium Br/Olodaterol HCl 1 puff INHALATION RT-DAILY 12/04/20 12/29/20 [Stiolto Respimat Inhal [place]] Previous Rx's Medication Instructions Recorded Albuterol Nebulized [Ventolin 2.5 mg INHALATION RT-Q4H PRN ml 09/17/20 Nebulized] Dextroamphetamine/Amphetamine 20 mg PO DAILY #3 tab 09/24/20 [Adderall] Meclizine [Antivert] 12.5 mg PO TID 30 Days #90 tab 12/08/20 Sennosides [Senokot] 8.6 mg PO BID 30 Days #60 tab 12/08/20 lamoTRIgine [LaMICtal] 25 mg PO BID 15 Days #30 tab 12/08/20 Lidocaine 5% Patch [Lidoderm 5% 1 patch TOPICAL DAILY patch 12/11/20 Patch] Midodrine [ProAmatine] 5 mg PO AC-TID tab 12/11/20 Cyanocobalamin [Vitamin B-12] 1,000 mcg PO DAILY tab 12/31/20 Amoxicillin 500 mg PO Q8H 7 Days #21 capsule 01/07/21 Allergies Allergy/AdvReac Type Severity Reaction Status Date / Time cat dander Allergy Rash/Hives Verified 01/07/21 09:03 tomato Allergy Rash/Hives Verified 01/07/21 09:03 Review of Systems ROS Other: All systems not noted in ROS Statement are negative. <Ricarda Mas - Last Filed: 01/07/21 10:15> ROS Other: All systems not noted in ROS Statement are negative. <Carmelina Wallace - Last Filed: 01/15/21 02:59> ROS Statement: Those systems with pertinent positive or pertinent negative responses have been documented in the HPI. 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 History of Any Multi-Drug Resistant Organisms: None Reported Past Surgical History: Section, Tonsillectomy, Tubal Ligation Additional Past Surgical History / Comment(s): Past trach/peg tube, pt thinks some kind of brain/skull surgery while comatose in 2010 at [facility]. Past Anesthesia/Blood Transfusion Reactions: No Reported Reaction Past Psychological History: Anxiety Smoking Status: Current every day smoker Past Alcohol Use History: None Reported Past Drug Use History: None Reported - Past Family History Mother Family Medical History: Cancer Additional Family Medical History / Comment(s): Mother of cancer, pt does not know what type. Father Family Medical History: Cancer Additional Family Medical History / Comment(s): Father is alive and has had 3 different types of cancer but survived them all. <Ricarda Mas - Last Filed: 01/07/21 10:15> General Exam Limitations: no limitations <Ricarda Mas Narciso - Last Filed: 01/07/21 10:15> - General Exam Comments Initial Comments: General: The patient is awake and alert, in no distress, and does not appear acutely ill. Eye: +3 mm pupils are equal, round and reactive to light, extra-ocular movements are intact. No nystagmus. There is normal conjunctiva bilaterally. No signs of icterus. Ears, nose, mouth and throat: There are moist mucous membranes and no oral lesions. right TM red in comparison with the left. Neck: The neck is supple, there is no tenderness or JVD. Cardiovascular: There is a regular rate and rhythm. No murmur, rub or gallop is appreciated. Respiratory: Lungs are clear to auscultation, respirations are non-labored, breath sounds are equal. No wheezes, stridor, rales, or rhonchi. Gastrointestinal: Soft, non-distended, non-tender abdomen without masses or organomegaly noted. There is no rebound or guarding present. Musculoskeletal: Normal ROM, no tenderness. Strength 5/5 of the left UE and LE, the right side slightly weaker (baseline per patient) 4/5. Sensation intact of the UE and LE b/l. Radial and DP pulses equal bilaterally 2+. Neurological: A&O x 3. CN II-XII intact, There are no obvious motor or sensory deficits. Coordination appears grossly intact. Speech is normal. Finger to nose smooth and coordinated. Walks without difficulty. Skin: Skin is warm and dry and no rashes or lesions are noted. Psychiatric: Cooperative, appropriate mood & affect, normal judgment. (Ricarda Mas) Course Vital Signs 01/07/21 01/07/21 09:00 10:11 Temperature 98.1 F Pulse Rate 76 69 Respiratory 16 16 Rate Blood Pressure 124/77 116/62 O2 Sat by Pulse 98 98 Oximetry Medical Decision Making <Ricarda Mas - Last Filed: 01/07/21 10:15> <Carmelina Wallace - Last Filed: 01/15/21 02:59> - Medical Decision Making After discussing patient with attending, she feels this is chronic in regards to dizziness/headaches with outpatient workup on going and previous admission for same complaints. I concur from the history i was provided. i did do a full examination. pt did have right sided otitis media and will be treated. patient agreeable to symptomatic treatment and discharge. (Ricarda Mas) I was available for consultation in the emergency department. The history and physical exam were done by the midlevel provider. I was consulted for this patients care. I reviewed the case with the midlevel provider and based on their presentation of the patient, I agree with the assessment, medical decision making and plan of care as documented. Chart was dictated using fsboWOW dictation software. Attempts were made to correct any dictation errors however some typographical errors may persist. Patient was seen during a national state of emergency due to the Covid-19 pandemic. (Carmelina Wallace) Disposition Is patient prescribed a controlled substance at d/c from ED?: No Time of Disposition: 09:43 <Ricarda Mas - Last Filed: 01/07/21 10:15> <Carmelina Wallace - Last Filed: 01/15/21 02:59> Clinical Impression: Otitis media, Dizziness, Chronic headache Disposition: HOME SELF-CARE Condition: Good Instructions (If sedation given, give patient instructions): Acute Headache (ED) Additional Instructions: Please use medication as discussed. Please follow-up with family doctor in the next 2 days.. Please return to emergency room if the symptoms increase or worsen or for any other concerns. Prescriptions: Amoxicillin 500 mg PO Q8H 7 Days #21 capsule Referrals: Chris Bocanegra MD [Primary Care Provider] - 1-2 days
[2021-01-07 10:11] VITALS: BP 116/62; PULSE 69
== END 2021-01-07 10:34 | disposition home or self-care (01) ==
LOC: EC 08:58
DX: H66.91 Otitis media, unspecified, right ear (principal); J44.9 Chronic obstructive pulmonary disease, unspecified; Z86.73 Personal history of transient ischemic attack (TIA), and cerebral infarction without residual deficits; F41.9 Anxiety disorder, unspecified; F17.200 Nicotine dependence, unspecified, uncomplicated
CPT/HCPCS: 99284; 96360; J1200

== ENCOUNTER 2021-01-15 11:17 | Emergency (ER) | payer MEDICARE, OTHER ==
[2021-01-15 11:28] VITALS: TEMP 98.2
[2021-01-15 11:28] LABS: Glucose,Whole Blood 101 mg/dL (75-99)
--- NOTE | 2021-01-15 11:52 | ED ---
General Adult HPI - General Chief complaint: Weakness Stated complaint: weakness Time Seen by Provider: 01/15/21 11:21 Source: patient, EMS Mode of arrival: EMS Limitations: no limitations - History of Present Illness Initial comments: 50-year-old female patient with past medical history significant for CVA, COPD, and history of traumatic brain injury presents to the emergency department today for evaluation of increased right-sided weakness. Apparently patient does have some general weakness to the right side but states it is much worse since . States that she is unable to walk or move her right leg. States that her right arm is weaker than usual. She denies any headache, blurred vision, double vision. States she initially did have some issues with her speech with this seems to have resolved. She denies any chest pain, shortness of breath. She does not currently take any blood thinning medications. Patient denies any recent rash, fever, chills, cough, abdominal pain, nausea, vomiting, diarrhea, constipation, back pain, hematuria, dysuria, urinary urgency, urinary frequency, or any other complaints. - Related Data Home Medications Medication Instructions Recorded Confirmed ARIPiprazole [Abilify] 5 mg PO HS 02/29/20 01/15/21 Aspirin EC [Ecotrin Low Dose] 81 mg PO DAILY 07/16/20 01/15/21 Vitamin B Complex 1 cap PO DAILY 07/16/20 01/15/21 Nystatin 100,000 Unit/gm Powd 1 applic TOPICAL BID PRN 09/13/20 01/15/21 [Mycostatin Powder] Atorvastatin Calcium [Lipitor] 20 mg PO HS 10/13/20 01/15/21 Nitroglycerin Sl Tabs [Nitrostat] 0.4 mg SL Q5M PRN 12/04/20 01/15/21 Albuterol Nebulized [Ventolin 2.5 mg INHALATION RT-QID PRN 01/15/21 01/15/21 Nebulized] Fluticasone/Umeclidin/Vilanter 1 puff INHALATION RT-DAILY 01/15/21 01/15/21 [Trelegy Ellipta 100-62.5-25] Lidocaine 5% Patch [Lidoderm 5% 1 patch TRANSDERM DAILY 01/15/21 01/15/21 Patch] Meloxicam [Mobic] 15 mg PO DAILY 01/15/21 01/15/21 Previous Rx's Medication Instructions Recorded Dextroamphetamine/Amphetamine 20 mg PO DAILY #3 tab 09/24/20 [Adderall] Meclizine [Antivert] 12.5 mg PO TID 30 Days #90 tab 12/08/20 Sennosides [Senokot] 8.6 mg PO BID 30 Days #60 tab 12/08/20 lamoTRIgine [LaMICtal] 25 mg PO BID 15 Days #30 tab 12/08/20 Midodrine [ProAmatine] 5 mg PO AC-TID tab 12/11/20 Cyanocobalamin [Vitamin B-12] 1,000 mcg PO DAILY tab 12/31/20 Allergies Allergy/AdvReac Type Severity Reaction Status Date / Time cat dander Allergy Rash/Hives Verified 01/15/21 12:54 tomato Allergy Rash/Hives Verified 01/15/21 12:54 Review of Systems ROS Statement: Those systems with pertinent positive or pertinent negative responses have been documented in the HPI. ROS Other: All systems not noted in ROS Statement are negative. Past Medical History Past Medical History: Chest Pain / Angina, COPD, CVA/TIA, Memory Impairment, Neurologic Disorder Additional Past Medical History / Comment(s): Pt has history of brain injury following fall down flight of stairs in 2010 and was comatose for 3 months, then when she regained consciousness she had a CVA with R sided paralysis/parasthes ia/decreased vision R eye/decreased hearing R ear/loss of sensation r inside of mouth-takes care with what food she eats/no longer has feelings of hunger/cannot taste or smell, pt denies ever having a seizure, hypothyroid, occasional pedal edema, occasional headaches. History of Any Multi-Drug Resistant Organisms: None Reported Past Surgical History: Section, Tonsillectomy, Tubal Ligation Additional Past Surgical History / Comment(s): Past trach/peg tube, pt thinks some kind of brain/skull surgery while comatose in 2010 at [facility]. Past Anesthesia/Blood Transfusion Reactions: No Reported Reaction Past Psychological History: Anxiety Smoking Status: Current every day smoker Past Alcohol Use History: None Reported Past Drug Use History: None Reported - Past Family History Mother Family Medical History: Cancer Additional Family Medical History / Comment(s): Mother of cancer, pt does not know what type. Father Family Medical History: Cancer Additional Family Medical History / Comment(s): Father is alive and has had 3 different types of cancer but survived them all. General Exam Limitations: no limitations General appearance: alert, in no apparent distress, other (This is a well- developed, well-nourished adult female patient in no acute distress. Vital signs upon presentation are temperature 98.2F, pulse 65, respirations 18, blood pressure 107/75, pulse ox 97% on room air.) Eye exam: Present: normal appearance, PERRL, EOMI. Absent: scleral icterus, conjunctival injection, nystagmus, periorbital swelling ENT exam: Present: normal exam, normal oropharynx, mucous membranes moist Respiratory exam: Present: normal lung sounds bilaterally. Absent: respiratory distress, wheezes, rales, rhonchi, stridor Cardiovascular Exam: Present: regular rate, normal rhythm, normal heart sounds. Absent: systolic murmur, diastolic murmur, rubs, gallop, clicks GI/Abdominal exam: Present: soft, normal bowel sounds. Absent: distended, tenderness, guarding, rebound, rigid Neurological exam: Present: alert, oriented X3, CN II-XII intact Expanded Speech: Present: fluid speech Cranial nerves: EOM's Intact: Normal, Tongue Deviation: Normal, Facial Palsy with Forehead Movement: Normal, Facial Palsy without Forehead Movement: Normal Sensory exam: Upper Extremity Light Touch: Abnormal Right, Lower Extremity Light Touch: Abnormal Right Motor strength exam: RUE: 3, LUE: 5, RLE: 0, LLE: 5 Psychiatric exam: Present: normal affect, normal mood Skin exam: Present: warm, dry, intact, normal color. Absent: rash Course Vital Signs 01/15/21 01/15/21 01/15/21 11:24 12:28 13:00 Temperature 98.2 F Pulse Rate 65 80 72 Respiratory 18 16 16 Rate Blood Pressure 107/75 132/78 O2 Sat by Pulse 97 100 100 Oximetry 01/15/21 01/15/21 14:00 14:33 Temperature 98.2 F Pulse Rate 69 69 Respiratory 16 16 Rate Blood Pressure 131/87 131/87 O2 Sat by Pulse 100 100 Oximetry EKG Findings - EKG Comments: EKG Findings:: EKG obtained at 1123 shows sinus rhythm with a short TX interval. Ventricular rate is 65, TX interval 106, QRS duration 82, QT 400, QTC 416. No evidence of ST elevation or depression. Medical Decision Making - Medical Decision Making 50-year-old female patient presents to the emergency department today for evaluation of right-sided weakness. States this started Thursday. Initially, she was unable to move her leg at all, had diminished sensation. Physical examination did reveal drift in the right arm, very minimal foot movement in the right foot, unable to lift her leg up against gravity. Labs are performed. She was sent for CT brain no contrast and CT angiography of the head and neck these results were unremarkable. When going to CT patient was able to move herself over to the CT table and did use her right leg. When asked about this she now states she is able to move it, it just hurts when she moves it so she holds it still. Will be discharged. Her primary care physician for recheck in 1-2 days. Return parameters were discussed in detail. She verbalizes understanding and agrees with this plan. Case discussed with my attending Dr. Govea. - Lab Data Result diagrams: 01/15/21 12:15 01/15/21 12:15 Lab Results 01/15/21 01/15/21 01/15/21 Range/Units 11:27 12:15 12:15 WBC 6.1 (3.8-10.6) k/uL RBC 4.37 (3.80-5.40) m/uL Hgb 12.9 (11.4-16.0) gm/dL Hct 40.3 (34.0-46.0) % MCV 92.3 (80.0-100.0) fL MCH 29.4 (25.0-35.0) pg MCHC 31.9 (31.0-37.0) g/dL RDW 14.4 (11.5-15.5) % Plt Count 242 (150-450) k/uL MPV 7.3 Neutrophils % 65 % Lymphocytes % 27 % Monocytes % 5 % Eosinophils % 2 % Basophils % 1 % Neutrophils # 3.9 (1.3-7.7) k/uL Lymphocytes # 1.6 (1.0-4.8) k/uL Monocytes # 0.3 (0-1.0) k/uL Eosinophils # 0.1 (0-0.7) k/uL Basophils # 0.0 (0-0.2) k/uL PT 9.6 (9.0-12.0) sec INR 0.9 (<1.2) APTT 23.0 (22.0-30.0) sec Sodium (137-145) mmol/L Potassium (3.5-5.1) mmol/L Chloride (98-107) mmol/L Carbon Dioxide (22-30) mmol/L Anion Gap mmol/L BUN (7-17) mg/dL Creatinine (0.52-1.04) mg/dL Est GFR (CKD-EPI)AfAm (>60 ml/min/1.73 sqM) Est GFR (CKD-EPI)NonAf (>60 ml/min/1.73 sqM) Glucose (74-99) mg/dL POC Glucose (mg/dL) 101 H (75-99) mg/dL POC Glu Nursing [facility] ID Arturo Henderson Calcium (8.4-10.2) mg/dL Total Bilirubin (0.2-1.3) mg/dL AST (14-36) U/L ALT (4-34) U/L Alkaline Phosphatase (38-126) U/L Troponin I (0.000-0.034) ng/mL Total Protein (6.3-8.2) g/dL Albumin (3.5-5.0) g/dL 01/15/21 01/15/21 Range/Units 12:15 12:15 WBC (3.8-10.6) k/uL RBC (3.80-5.40) m/uL Hgb (11.4-16.0) gm/dL Hct (34.0-46.0) % MCV (80.0-100.0) fL MCH (25.0-35.0) pg MCHC (31.0-37.0) g/dL RDW (11.5-15.5) % Plt Count (150-450) k/uL MPV Neutrophils % % Lymphocytes % % Monocytes % % Eosinophils % % Basophils % % Neutrophils # (1.3-7.7) k/uL Lymphocytes # (1.0-4.8) k/uL Monocytes # (0-1.0) k/uL Eosinophils # (0-0.7) k/uL Basophils # (0-0.2) k/uL PT (9.0-12.0) sec INR (<1.2) APTT (22.0-30.0) sec Sodium 139 (137-145) mmol/L Potassium 4.3 (3.5-5.1) mmol/L Chloride 107 (98-107) mmol/L Carbon Dioxide 25 (22-30) mmol/L Anion Gap 7 mmol/L BUN 12 (7-17) mg/dL Creatinine 0.50 L (0.52-1.04) mg/dL Est GFR (CKD-EPI)AfAm >90 (>60 ml/min/1.73 sqM) Est GFR (CKD-EPI)NonAf >90 (>60 ml/min/1.73 sqM) Glucose 96 (74-99) mg/dL POC Glucose (mg/dL) (75-99) mg/dL POC Glu Nursing Home Manager ID Calcium 8.8 (8.4-10.2) mg/dL Total Bilirubin 0.3 (0.2-1.3) mg/dL AST 29 (14-36) U/L ALT 36 H (4-34) U/L Alkaline Phosphatase 73 (38-126) U/L Troponin I <0.012 (0.000-0.034) ng/mL Total Protein 6.2 L (6.3-8.2) g/dL Albumin 3.6 (3.5-5.0) g/dL - Radiology Data Radiology results: report reviewed, image reviewed CT brain without contrast was obtained. Report was reviewed in its entirety. Impression by Dr. Butler shows no acute intracranial hemorrhage or midline shift. There is mild to moderate diffuse herbal atrophy and old left temporal lobe infarct all redemonstrated. No significant change from prior. Two-view x-ray of the chest is obtained. Report was reviewed in its entirety. Impression by Dr. Butler shows no acute cardio pulmonary process. No significant change from prior. CT angiography of the head and neck were obtained. Report was reviewed in its entirety. Impression by Dr. Butler shows no significant abnormalities seen. No significant change from recent CTA study. Disposition Clinical Impression: Right leg pain, Right arm pain Disposition: HOME SELF-CARE Condition: Good Instructions (If sedation given, give patient instructions): Leg Pain (ED) Additional Instructions: Follow-up with your primary care physician for recheck in 1-2 days. Return to the emergency department for any new, worsening, or concerning symptoms. Is patient prescribed a controlled substance at d/c from ED?: No Referrals: Chris Bocanegra MD [Primary Care Provider] - 1-2 days Time of Disposition: 14:16
--- NOTE | 2021-01-15 12:11 | CT ---
EXAMINATION TYPE: CT brain wo con DATE OF EXAM: 01/15/2021 HISTORY: Right sided weakness, history of prior stroke. CT DLP: 1083.8 mGycm. Automated Exposure Control for Dose Reduction was Utilized. TECHNIQUE: CT scan of the head is performed without contrast. COMPARISON: CT brain 17 days ago. FINDINGS: There is no acute intracranial hemorrhage or midline shift identified. There is mild to m oderate diffuse ventricular and sulcal prominence consistent with diffuse age-related cerebral atroph y. Old infarct left temporal lobe with encephalomalacia is redemonstrated. The globes are intact and the visualized sinuses are clear. IMPRESSION: No acute intracranial hemorrhage or midline shift. There is [id number] diffuse ce rebral atrophy and old left temporal lobe infarct all redemonstrated. No significant change from prio r.
--- NOTE | 2021-01-15 12:26 | XR ---
EXAMINATION TYPE: XR chest 2V DATE OF EXAM: 01/15/2021 COMPARISON: Prior chest x-ray January 03, 2021 HISTORY: Altered mental status and weakness. TECHNIQUE: Frontal and lateral views of the chest are obtained. FINDINGS: There is no suspicious new focal air space opacity, pleural effusion, or pneumothorax seen . The cardiac silhouette size is stable and within normal limits. The osseous structures are intac t. Overlying EKG leads current study. IMPRESSION: No acute cardiopulmonary process. No significant change from prior.
[2021-01-15 12:35] LABS: Basophils % (A) 1 %; Eosinophils # (A) 0.1 k/uL (0-0.7); Eosinophils % (A) 2 %; HCT 40.3 % (34.0-46.0); HGB 12.9 gm/dL (11.4-16.0); Lymphocytes # (A) 1.6 k/uL (1.0-4.8); Lymphocytes % (A) 27 %; MCH 29.4 pg (25.0-35.0); MCHC 31.9 g/dL (31.0-37.0); MCV 92.3 fL (80.0-100.0); Mean Platelet Volume 7.3; Monocytes # (A) 0.3 k/uL (0-1.0); Monocytes % (A) 5 %; Neutrophils # (A) 3.9 k/uL (1.3-7.7); Neutrophils % (A) 65 %; Platelet Count 242 k/uL (150-450); RBC 4.37 m/uL (3.80-5.40); RDW 14.4 % (11.5-15.5); WBC 6.1 k/uL (3.8-10.6)
[2021-01-15 12:44] LABS: ALT 36 U/L (4-34); AST 29 U/L (14-36); African American GFR (CKD) >90 (>60 ml/min/1.73 sqM); Albumin 3.6 g/dL (3.5-5.0); Alkaline Phosphatase 73 U/L (38-126); Anion Gap 7 mmol/L; Blood Urea Nitrogen 12 mg/dL (7-17); Calcium 8.8 mg/dL (8.4-10.2); Carbon Dioxide 25 mmol/L (22-30); Chloride 107 mmol/L (98-107); Glucose 96 mg/dL (74-99); Non-African American GFR(CKD) >90 (>60 ml/min/1.73 sqM); Potassium 4.3 mmol/L (3.5-5.1); Sodium 139 mmol/L (137-145); Total Bilirubin 0.3 mg/dL (0.2-1.3); Total Protein 6.2 g/dL (6.3-8.2)
[2021-01-15 12:52] VITALS: RESP 16
[2021-01-15 13:01] LABS: INR 0.9 (<1.2); Prothrombin Time 9.6 sec (9.0-12.0)
--- NOTE | 2021-01-15 13:45 | CT ---
EXAMINATION TYPE: CODE STROKE: CTA head neck DATE OF EXAM: 01/15/2021 HISTORY: Right sided weakness COMPARISON: CTA study [address] DLP: 606 mGycm. Automated Exposure Control for Dose Reduction was Utilized. TECHNIQUE: CTA scan of the head and neck is performed with IV Contrast, patient injected with 65 mL of Isovue 370, axial images are obtained, coronal and sagittal reformatted images are reviewed. 3D re constructed images are created on an independent workstation and reviewed. FINDINGS: Carotid/Vascular Structures: More dense opacification of the pulmonary arteries then aorta . Normal t hree-vessel origin from aortic arch redemonstrated. No significant plaque or stenosis. No significant plaque or stenosis in the common or internal carotid arteries bilaterally. Patent bilateral external carotid arteries without significant plaque or stenosis. Codominant vertebrobasilar system. Vertebral arteries are patent to basilar junction. Patent right-si ded posterior communicating. Hypoplastic left sided posterior communicating artery. Poorly visualized suspected hypoplastic or small caliber anterior communicating artery. No significant focal stenosis or aneurysm in the anterior circulation. Other: Mild disc space narrowing with posterior spurring effacing the anterior thecal sac at C5-C6 le conrad. IMPRESSION: No significant abnormality is seen. No significant change from recent CTA study.
[2021-01-15] MEDS ORDERED: MORPHINE SULFATE 4 MG/ML SYRINGE IVP STA (14:16)
[2021-01-15] MEDS ORDERED: ACET/COD 300 MG/30 MG STARTER PACK 6 TAB BTL PO STA (14:16)
[2021-01-15 14:28] VITALS: BP 131/87; PULSE 69
== END 2021-01-15 14:33 | disposition home or self-care (01) ==
LOC: EC 11:17
DX: M79.601 Pain in right arm (principal); M79.604 Pain in right leg; J44.9 Chronic obstructive pulmonary disease, unspecified; F17.200 Nicotine dependence, unspecified, uncomplicated; Z98.51 Tubal ligation status; Z90.09 Acquired absence of other part of head and neck; Z87.820 Personal history of traumatic brain injury
CPT/HCPCS: 99285 ×2; 96374 ×2; 36415; 93005; 80053; 84484; 85025; 85610; 85730; 71046; 70496; 70450; 70498; J2270; Q9967

== ENCOUNTER 2021-01-29 08:53 | Observation (INO) | payer MEDICARE, OTHER ==
--- NOTE | 2021-01-29 09:05 | ED ---
Weakness HPI - General Chief complaint: Weakness Stated complaint: rt sided weakness Time Seen by Provider: 01/29/21 08:55 Source: patient, EMS Mode of arrival: EMS - History of Present Illness Initial comments: 50yo female with history of right-sided weakness, tract brain injury with brain atrophy presenting for cc of right sided weakness worsening. Patient states that for the past year she has had worsening right-sided weakness. Patient states that felt slightly worse this morning when she woke up. Patient denies any vision changes speech changes she denies any neck stiffness fevers she states her right foot also hurts and weaver at times. Patient denies any falls or trauma. Patient denies any new memory changes she states she has daily dizziness.Denies headache. Remaining ROS (-). - Related Data Home Medications Medication Instructions Recorded Confirmed ARIPiprazole [Abilify] 5 mg PO HS 02/29/20 01/15/21 Aspirin EC [Ecotrin Low Dose] 81 mg PO DAILY 07/16/20 01/15/21 Vitamin B Complex 1 cap PO DAILY 07/16/20 01/15/21 Atorvastatin Calcium [Lipitor] 20 mg PO HS 10/13/20 01/15/21 Nitroglycerin Sl Tabs [Nitrostat] 0.4 mg SL Q5M PRN 12/04/20 01/15/21 Albuterol Nebulized [Ventolin 2.5 mg INHALATION RT-QID PRN 01/15/21 01/15/21 Nebulized] Fluticasone/Umeclidin/Vilanter 1 puff INHALATION RT-DAILY 01/15/21 01/15/21 [Trelegy Ellipta 100-62.5-25] Meloxicam [Mobic] 15 mg PO DAILY 01/15/21 01/15/21 Previous Rx's Medication Instructions Recorded Dextroamphetamine/Amphetamine 20 mg PO DAILY #3 tab 09/24/20 [Adderall] Sennosides [Senokot] 8.6 mg PO BID 30 Days #60 tab 12/08/20 Midodrine [ProAmatine] 5 mg PO AC-TID tab 12/11/20 Cyanocobalamin [Vitamin B-12] 1,000 mcg PO DAILY tab 12/31/20 Allergies Allergy/AdvReac Type Severity Reaction Status Date / Time cat dander Allergy Rash/Hives Verified 01/29/21 13:21 tomato Allergy Rash/Hives Verified 01/29/21 13:21 Review of Systems ROS Statement: Those systems with pertinent positive or pertinent negative responses have been documented in the HPI. ROS Other: All systems not noted in ROS Statement are negative. 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 History of Any Multi-Drug Resistant Organisms: None Reported Past Surgical History: Section, Tonsillectomy, Tubal Ligation Additional Past Surgical History / Comment(s): Past trach/peg tube, pt thinks some kind of brain/skull surgery while comatose in 2010 at [facility]. Past Anesthesia/Blood Transfusion Reactions: No Reported Reaction Past Psychological History: Anxiety Smoking Status: Current every day smoker, Vaper Past Alcohol Use History: None Reported Past Drug Use History: None Reported - Past Family History Mother Family Medical History: Cancer Additional Family Medical History / Comment(s): Mother of cancer, pt does not know what type. Father Family Medical History: Cancer Additional Family Medical History / Comment(s): Father is alive and has had 3 different types of cancer but survived them all. General Exam - General Exam Comments Initial Comments: General: The patient is awake and alert, in no distress Eye: +3 mm pupils are equal, round and reactive to light, extra-ocular movements are intact. No nystagmus. There is normal conjunctiva bilaterally. No signs of icterus. Ears, nose, mouth and throat: There are moist mucous membranes and no oral lesions. Neck: The neck is supple, there is no tenderness or JVD. Cardiovascular: There is a regular rate and rhythm. No murmur, rub or gallop is appreciated. Respiratory: Lungs are clear to auscultation, respirations are non-labored, breath sounds are equal. No wheezes, stridor, rales, or rhonchi. Gastrointestinal: Soft, non-distended, non-tender abdomen without masses or organomegaly noted. There is no rebound or guarding present. Musculoskeletal: Normal ROM, no tenderness. Strength 4/5 right sided, 5/5 left sided. Sensation intact of the UE b/l with the right slightly decreased from the left . Radial and DP pulses equal bilaterally 2+. Neurological: A&O x 3. CN II-XII intact, memory intact to immediately, intermediate and watermaster recall. Able to follow simple verbal. Able to name a common object (pen). High quality, labial (pa) and lingual (la) speech. Low quality posterior pharynx/larynx (ga) voice sounds. Able to express general knowledge (days in a week). No hemineglect or inattention noted. Finger agnosia (-) and spatially oriented (identified L index finger touched R shoulder with L index finger). Light touch and temperature sensation present over the face, chest, abdomen, back, and LE bilaterally. Right UE slightly diminished (pt baseline in comparison with previous exams) Able to localize point during point localization b/l and extinction. No visible bulk atrophy, hypertrophy, fasciculations, or myoclonus of the UE or LE b/l. Full PROM in UE and LE b/l. Bilateral muscle strength 5/5 for the following muscles: deltoid, biceps, triceps, brachioradialis, wrist extensors/flexor, hip flexor, hip abductors/adductors, hamstrings, quadriceps, feet dorsiflexors/plantar flexors. Finger to nose, finger to the examiners finger, and heel to rosa coordinated and accurate b/l. Coordinated and even demonstration of hand flip, finger to thumb, and toe tap b/l. (-) pronator drift. No nuchal rigidity. (-) Brudzinskis and Kernig signs. Skin: Skin is warm and dry and no rashes or lesions are noted. Psychiatric: Cooperative, appropriate mood & affect, normal judgment. Course Vital Signs 01/29/21 08:55 Temperature 98.6 F Pulse Rate 67 Respiratory 18 Rate Blood Pressure 120/70 O2 Sat by Pulse 99 Oximetry Medical Decision Making - Medical Decision Making 50-year-old female presenting to the ER today for chief complaint of worsening right side weakness. on chart review pt has had this complaints x 11 months. pt states if felt worse since 3AM. I have examined patient on multiple occasions in the past and the weakness does appeare similar to previous. Pt primary care was consulted who wanted admission with neurology consultation. Patient denies additional complaints that are new from her baseline. pt appears well nontoxic in no distress wiht a CT revealing no new acute process. Dr Marvin agreeable to care plan. - Lab Data Result diagrams: 01/29/21 10:19 01/29/21 10:19 Lab Results 01/29/21 01/29/21 01/29/21 Range/Units 10:19 10:19 10:19 WBC 10.1 (3.8-10.6) k/uL RBC 4.24 (3.80-5.40) m/uL Hgb 12.9 (11.4-16.0) gm/dL Hct 38.3 (34.0-46.0) % MCV 90.4 (80.0-100.0) fL MCH 30.5 (25.0-35.0) pg MCHC 33.7 (31.0-37.0) g/dL RDW 13.9 (11.5-15.5) % Plt Count 249 (150-450) k/uL MPV 7.8 Neutrophils % 72 % Lymphocytes % 20 % Monocytes % 5 % Eosinophils % 2 % Basophils % 0 % Neutrophils # 7.3 (1.3-7.7) k/uL Lymphocytes # 2.0 (1.0-4.8) k/uL Monocytes # 0.5 (0-1.0) k/uL Eosinophils # 0.2 (0-0.7) k/uL Basophils # 0.0 (0-0.2) k/uL PT 10.0 (9.0-12.0) sec INR 0.9 (<1.2) APTT 22.7 (22.0-30.0) sec Sodium (137-145) mmol/L Potassium (3.5-5.1) mmol/L Chloride (98-107) mmol/L Carbon Dioxide (22-30) mmol/L Anion Gap mmol/L BUN (7-17) mg/dL Creatinine (0.52-1.04) mg/dL Est GFR (CKD-EPI)AfAm (>60 ml/min/1.73 sqM) Est GFR (CKD-EPI)NonAf (>60 ml/min/1.73 sqM) Glucose (74-99) mg/dL Plasma Lactic Acid Tin (0.7-2.0) mmol/L Calcium (8.4-10.2) mg/dL Magnesium (1.6-2.3) mg/dL Total Bilirubin (0.2-1.3) mg/dL AST (14-36) U/L ALT (4-34) U/L Alkaline Phosphatase (38-126) U/L Troponin I (0.000-0.034) ng/mL Total Protein (6.3-8.2) g/dL Albumin (3.5-5.0) g/dL Urine Color Yellow Urine Appearance Cloudy H (Clear) Urine pH 6.5 (5.0-8.0) Ur Specific [place] 1.017 (1.001-1.035) Urine Protein Negative (Negative) Urine Glucose (UA) Negative (Negative) Urine Ketones Negative (Negative) Urine Blood Negative (Negative) Urine Nitrite Negative (Negative) Urine Bilirubin Negative (Negative) Urine Urobilinogen <2.0 (<2.0) mg/dL Ur Leukocyte Esterase Moderate H (Negative) Urine RBC 1 (0-5) /hpf Urine WBC 10 H (0-5) /hpf Ur Squamous Epith Cells 14 H (0-4) /hpf Urine Bacteria Occasional H (None) /hpf Urine Mucus Occasional H (None) /hpf 01/29/21 01/29/21 01/29/21 Range/Units 10:19 10:19 10:19 WBC (3.8-10.6) k/uL RBC (3.80-5.40) m/uL Hgb (11.4-16.0) gm/dL Hct (34.0-46.0) % MCV (80.0-100.0) fL MCH (25.0-35.0) pg MCHC (31.0-37.0) g/dL RDW (11.5-15.5) % Plt Count (150-450) k/uL MPV Neutrophils % % Lymphocytes % % Monocytes % % Eosinophils % % Basophils % % Neutrophils # (1.3-7.7) k/uL Lymphocytes # (1.0-4.8) k/uL Monocytes # (0-1.0) k/uL Eosinophils # (0-0.7) k/uL Basophils # (0-0.2) k/uL PT (9.0-12.0) sec INR (<1.2) APTT (22.0-30.0) sec Sodium 141 (137-145) mmol/L Potassium 4.4 (3.5-5.1) mmol/L Chloride 107 (98-107) mmol/L Carbon Dioxide 28 (22-30) mmol/L Anion Gap 6 mmol/L BUN 14 (7-17) mg/dL Creatinine 0.61 (0.52-1.04) mg/dL Est GFR (CKD-EPI)AfAm >90 (>60 ml/min/1.73 sqM) Est GFR (CKD-EPI)NonAf >90 (>60 ml/min/1.73 sqM) Glucose 99 (74-99) mg/dL Plasma Lactic Acid Tin 1.4 (0.7-2.0) mmol/L Calcium 9.3 (8.4-10.2) mg/dL Magnesium 2.1 (1.6-2.3) mg/dL Total Bilirubin 0.4 (0.2-1.3) mg/dL AST 25 (14-36) U/L ALT 32 (4-34) U/L Alkaline Phosphatase 95 (38-126) U/L Troponin I <0.012 (0.000-0.034) ng/mL Total Protein 6.7 (6.3-8.2) g/dL Albumin 3.8 (3.5-5.0) g/dL Urine Color Urine Appearance (Clear) Urine pH (5.0-8.0) Ur Specific [place] (1.001-1.035) Urine Protein (Negative) Urine Glucose (UA) (Negative) Urine Ketones (Negative) Urine Blood (Negative) Urine Nitrite (Negative) Urine Bilirubin (Negative) Urine Urobilinogen (<2.0) mg/dL Ur Leukocyte Esterase (Negative) Urine RBC (0-5) /hpf Urine WBC (0-5) /hpf Ur Squamous Epith Cells (0-4) /hpf Urine Bacteria (None) /hpf Urine Mucus (None) /hpf Disposition Clinical Impression: Weakness, Foot pain, right Disposition: ADMITTED IP TO THIS [facility] Condition: Stable Additional Instructions: . Is patient prescribed a controlled substance at d/c from ED?: No Referrals: Chris Bocanegra MD [Primary Care Provider] - 1-2 days Time of Disposition: 11:59 Decision to Admit Reason: Admit from EC Decision Date: 01/29/21 Decision Time: 13:56
--- NOTE | 2021-01-29 09:30 | CT ---
EXAMINATION TYPE: CT brain wo con DATE OF EXAM: 01/29/2021 HISTORY: right sided weakness and tingling. CT DLP: 1158.4 mGycm. Automated Exposure Control for Dose Reduction was Utilized. TECHNIQUE: CT scan of the head is performed without contrast. COMPARISON: CT brain January 15, 2021. FINDINGS: There is no acute intracranial hemorrhage or midline shift identified. There is mild diff use ventricular and sulcal prominence consistent with diffuse age-related cerebral atrophy. There is minimal low-attenuation in the periventricular white matter consistent with chronic small vessel isc hemic change. Old infarct left temporal lobe redemonstrated. The globes are intact and the visualize d sinuses are clear. IMPRESSION: No acute intracranial hemorrhage or midline shift. There is mild diffuse age-related ce rebral atrophy and minimal chronic small vessel ischemic change along with old left temporal lobe inf arct are redemonstrated. No significant change from most recent study.
--- NOTE | 2021-01-29 09:37 | XR ---
EXAMINATION TYPE: XR chest 2V DATE OF EXAM: 01/29/2021 COMPARISON: Chest x-ray January 15, 2021 HISTORY: Weakness. TECHNIQUE: Frontal and lateral views of the chest are obtained. FINDINGS: There is no new suspicious focal air space opacity, pleural effusion, or pneumothorax seen . The cardiac silhouette size is stable and within normal limits. The osseous structures are intac t. IMPRESSION: No acute cardiopulmonary process. No significant change from prior.
[2021-01-29 10:39] LABS: Basophils % (A) 0 %; Eosinophils # (A) 0.2 k/uL (0-0.7); Eosinophils % (A) 2 %; HCT 38.3 % (34.0-46.0); HGB 12.9 gm/dL (11.4-16.0); Lymphocytes % (A) 20 %; MCH 30.5 pg (25.0-35.0); MCHC 33.7 g/dL (31.0-37.0); MCV 90.4 fL (80.0-100.0); Mean Platelet Volume 7.8; Monocytes # (A) 0.5 k/uL (0-1.0); Monocytes % (A) 5 %; Neutrophils # (A) 7.3 k/uL (1.3-7.7); Neutrophils % (A) 72 %; Platelet Count 249 k/uL (150-450); RBC 4.24 m/uL (3.80-5.40); RDW 13.9 % (11.5-15.5); WBC 10.1 k/uL (3.8-10.6)
[2021-01-29 10:49] LABS: INR 0.9 (<1.2); Partial Thromboplastin Time 22.7 sec (22.0-30.0)
[2021-01-29 10:52] LABS: ALT 32 U/L (4-34); AST 25 U/L (14-36); African American GFR (CKD) >90 (>60 ml/min/1.73 sqM); Albumin 3.8 g/dL (3.5-5.0); Alkaline Phosphatase 95 U/L (38-126); Anion Gap 6 mmol/L; Blood Urea Nitrogen 14 mg/dL (7-17); Calcium 9.3 mg/dL (8.4-10.2); Carbon Dioxide 28 mmol/L (22-30); Chloride 107 mmol/L (98-107); Glucose 99 mg/dL (74-99); Magnesium 2.1 mg/dL (1.6-2.3); Non-African American GFR(CKD) >90 (>60 ml/min/1.73 sqM); Potassium 4.4 mmol/L (3.5-5.1); Sodium 141 mmol/L (137-145); Total Bilirubin 0.4 mg/dL (0.2-1.3); Total Protein 6.7 g/dL (6.3-8.2)
[2021-01-29 11:34] LABS: Appearance,Urine Cloudy (Clear); Bacteria,Urine Occasional /hpf; Bilirubin,Urine Negative (Negative); Blood,Urine Negative (Negative); Color,Urine Yellow; Glucose,Urine (UA) Negative (Negative); Ketones,Urine Negative (Negative); Leukocyte Esterase,Urine Moderate (Negative); Mucus,Urine Occasional /hpf; Nitrite,Urine Negative (Negative); PH, Urine 6.5 (5.0-8.0); Protein,Urine Negative (Negative); RBC,Urine 1 /hpf (0-5); Specific Gravity,Urine 1.017 (1.001-1.035); Squamous Epithelial Cell,Urine 14 /hpf (0-4); Urobilinogen,Urine <2.0 mg/dL (<2.0); WBC,Urine 10 /hpf (0-5)
[2021-01-29] MEDS ORDERED: NALOXONE 0.4 MG/ML 1 ML VIAL IV PRN (13:54)
[2021-01-29] MEDS: SODIUM CHLORIDE 0.9% 1,000 ML IV SCH (14:12)
[2021-01-29] MEDS ORDERED: ALBUTEROL NEBULIZED 2.5 MG/3 ML INHALATION PRN (17:04)
[2021-01-29] MEDS: MIDODRINE 5 MG TAB PO SCH (17:31)
--- NOTE | 2021-01-29 18:06 | HP ---
HISTORY AND PHYSICAL This 50-year-old white female came in with right-sided weakness. She has a history of a brain injury and recurrent admissions for right-sided weakness. She says she cannot move her right arm or right leg and it is worse than normal, worse when she woke up. She denies any visual changes, neck stiffness, fevers, chills or falls. Her dizziness on recent exam has been normal until recently. Denied headaches and her dizziness was better; unclear why she cannot move her right side of her body. Neurology is consulted. HOME MEDICINES: 1. Abilify 5 at night. 2. Ecotrin 81 daily. 3. Vitamin B1 daily. 4. Lipitor 20 daily. 5. Nitrostat sublingually p.r.n. 6. Ventolin 2.5 q.i.d. 7. Trelegy 1 puff daily. 8. Mobic 15 daily. ALLERGIES: CAT DANDER, TOMATOES. REVIEW OF SYSTEMS: Fourteen-point review of systems otherwise negative. PAST MEDICAL HISTORY: Lumbar disc disease, encephalomalacia, memory impairment, CVA, TIA, COPD, angina, history of her brain injury. History of anxiety. PAST SURGICAL HISTORY: , tonsillectomy, tubal ligation, status post trach and PEG in the past. FAMILY HISTORY: Mother with cancer. Father with cancer. PHYSICAL EXAMINATION: Awake, alert. No acute distress. Pupils equal, round, reactive. NECK: Supple. No mass. HEART: S1, S2. LUNGS: Clear. GI: Soft. MUSCULOSKELETAL: Right side is 3 to 4+ strength in arm and leg. Left is 5/5. Cranial nerves are intact. Alert and oriented x3. Cervical paralumbar muscle tenderness. No facial asymmetry. PSYCH: Cooperative. Blood pressure is 120/70, respiratory rate 16 to 18, pulse 60 to 70, temperature 98.6. Due to worsening right-sided weakness, will get Neurology involved. Possibly needs an epidural shot with Neurology and CT scan shows no acute findings. Prognosis guarded. MMODL / IJN: [id number] /
[2021-01-29] MEDS: ATORVASTATIN 20 MG TAB PO SCH (21:28)
[2021-01-29] MEDS: ARIPiprazole 5 MG TAB PO SCH (21:28)
[2021-01-29] MEDS: SENNOSIDES 8.6 MG TAB PO SCH (21:31)
[2021-01-29] MEDS: IPRATROPIUM 0.5 MG/2.5 ML NEBU INHALATION SCH (23:39)
[2021-01-30] MEDS: SODIUM CHLORIDE 0.9% 1,000 ML IV SCH ×2 (07:17→16:15)
[2021-01-30] MEDS ORDERED: ACETAMINOPHEN TAB 325 MG TAB PO STA (08:09)
[2021-01-30] MEDS: SENNOSIDES 8.6 MG TAB PO SCH ×2 (08:15→20:35)
[2021-01-30] MEDS: ASPIRIN 81 MG PO SCH (08:15)
[2021-01-30] MEDS: MIDODRINE 5 MG TAB PO SCH ×3 (08:15→18:06)
[2021-01-30] MEDS: CYANOCOBALAMIN 500 MCG TAB PO SCH (08:15)
[2021-01-30] MEDS: IPRATROPIUM 0.5 MG/2.5 ML NEBU INHALATION SCH (08:16)
[2021-01-30] MEDS: NON FORMULARY DRUG (Dextroamphetamine/Amphetamine [Adderall] 20 MG Tablet) PO SCH (08:16)
[2021-01-30] MEDS: TIOTROPIUM 2.5 MCG INHALER INHALATION SCH (08:33)
[2021-01-30] MEDS: SYMBICORT 80-4.5 MCG INHALER INHALATION SCH ×2 (08:33→19:01)
[2021-01-30] MEDS ORDERED: NON FORMULARY DRUG (Vitamin B Complex [Vitamin B Complex] 1 EACH Capsule) PO SCH (09:00)
[2021-01-30] MEDS ORDERED: MELOXICAM 7.5 MG TAB PO SCH (09:00)
--- NOTE | 2021-01-30 15:19 | P.CNNES ---
History of Present Illness Consult date: 01/30/21 Requesting physician: Chris Bocnaegra Reason for Consult: Chronic weakness, worsening, hx of TBI/brain bleed with residual weakness History of Present Illness: Patient is a 50-year-old female, well known to neurology service from multiple previous admissions to the hospital. Patient has history of mild right-sided weakness from previous CVA. Patient states that she became positive for lara virus on 01/17/2021. She stayed home. She did not have much symptoms, no diarrhea, no fever or headache or stomachache. Patient states 3 days ago she noticed worsening of her right-sided weakness. 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 She also notices numbness of right-sided the body was worse. Also noticing some slurring of speech. Some double vision. She came to the hospital by ambulance at 8:53 AM yesterday. EMS flow sheet not available. Vital signs on arrival blood pressure 120/70, pulse rate [address] head showed no acute process. There is mild diffuse age-related cerebral atrophy and minimal chronic small vessel ischemic change along with old left temporal lobe infarct artery demonstrated. No significant change from prior study. Chest x-ray showed no acute cardiopulmonary process. No significant change from prior. EKG with normal sinus rhythm. Blood test shows normal CBC, PT/PTT, CMP, troponin. UA was cloudy, moderate leukocyte Estrace. Influenza screen negative, RSV negative. Patient is now positive for SARS-CoV-2 PCR. Review of Systems As above in HPI. She denies any diarrhea, no fever, no headache. No stomachache. No constipation. She does feel lightheaded but no vertigo. Denies any chest pain abdominal pain. All other review of systems reviewed and noncontributory. Past Medical History Past Medical History: Chest Pain / Angina, COPD, CVA/TIA, Hyperlipidemia, Memory Impairment, Neurologic Disorder Additional Past Medical History / Comment(s): Pt recently admitted to [facility] on 12/31/20 with back pain. Other hx: Pt has history of brain injury following fall down flight of stairs in 2010 and was comatose for 3 months, then when she regained consciousness she had a CVA with R sided pa ralysis/parasthesia/decreased vision R eye/decreased hearing R ear/loss of sensation r inside of mouth-takes care with what food she eats/no longer has feelings of hunger/cannot taste or smell, pt denies ever having a seizure, hypothyroid, occasional pedal edema, occasional headaches, chronic back pain, cervical occipital neuritis, ataxia, vertigo. History of Any Multi-Drug Resistant Organisms: None Reported Past Surgical History: Section, Tonsillectomy, Tubal Ligation Additional Past Surgical History / Comment(s): 01/02/21 lumbar puncture, past trach/peg tube, pt thinks some kind of brain/skull surgery while comatose in 2010 at [facility]. Past Anesthesia/Blood Transfusion Reactions: No Reported Reaction Smoking Status: Former smoker - Past Family History Mother Family Medical History: Cancer Additional Family Medical History / Comment(s): Mother of cancer, pt does not know what type. Father Family Medical History: Cancer Additional Family Medical History / Comment(s): Father is alive and has had 3 different types of cancer but survived them all. Medications and Allergies Home Medications Medication Instructions Recorded Confirmed Type ARIPiprazole [Abilify] 5 mg PO HS 02/29/20 01/29/21 History Aspirin EC [Ecotrin Low Dose] 81 mg PO DAILY 07/16/20 01/29/21 History Vitamin B Complex 1 cap PO DAILY 07/16/20 01/29/21 History Dextroamphetamine/Amphetamine 20 mg PO DAILY #3 tab 09/24/20 01/29/21 Rx [Adderall] Atorvastatin Calcium [Lipitor] 20 mg PO HS 10/13/20 01/29/21 History Nitroglycerin Sl Tabs [Nitrostat] 0.4 mg SL Q5M PRN 12/04/20 01/29/21 History Sennosides [Senokot] 8.6 mg PO BID 30 Days #60 tab 12/08/20 01/29/21 Rx Midodrine [ProAmatine] 5 mg PO AC-TID tab 12/11/20 01/29/21 Rx Cyanocobalamin [Vitamin B-12] 1,000 mcg PO DAILY tab 12/31/20 01/29/21 Rx Albuterol Nebulized [Ventolin 2.5 mg INHALATION RT-QID PRN 01/15/21 01/29/21 History Nebulized] Fluticasone/Umeclidin/Vilanter 1 puff INHALATION RT-DAILY 01/15/21 01/29/21 History [Trelegy Ellipta 100-62.5-25] Meloxicam [Mobic] 15 mg PO DAILY 01/15/21 01/29/21 History Allergies Allergy/AdvReac Type Severity Reaction Status Date / Time cat dander Allergy Rash/Hives Verified 01/29/21 13:21 tomato Allergy Rash/Hives Verified 01/29/21 13:21 Physical Examination - Vital Signs Vital Signs: Vital Signs Temp Pulse Resp BP Pulse Ox 01/30/21 08:06 98 F 74 16 121/79 97 01/30/21 06:15 61 15 124/70 99 01/30/21 02:00 71 16 127/71 99 01/29/21 21:30 69 18 112/82 98 01/29/21 20:25 73 18 116/70 98 01/29/21 15:22 80 18 112/82 97 Intake and Output 01/29/21 01/30/21 01/30/21 22:59 06:59 14:59 Other: Weight 99.79 kg Patient is a middle aged female, in no acute distress. Patient is alert awake oriented to time place and person. Speech is mildly hoarse, which is chronic and language functions are normal. Attention, concentration and fund of knowledge is adequate. On cranial examination, pupils are round and reacting to light, visual newman are full on confrontation, with no neglect, extraocular muscles are intact with no nystagmus. Face is symmetric, tongue protrudes to the midline. Palatal elevation and sensation normal, hearing is slightly decreased and shoulder shrug normal, facial sensation normal. Shoulder shrug normal. On muscle strength testing, the strength is normal in the left arm and left leg. On the right side, upper extremities diffusely for proximally and distally. In the lower extremity hip flexion is 2-3, ankle dorsiflexion 3-4. Deep tendon reflexes are diminished and plantars are flat. Sensory is decreased in the entire right side of the body. Cerebellar function showed no ataxia for [id number] testing. No dysdiadochokinesia. Tone and bulk of muscles normal. Patient states that she cannot lift her right leg up, but was able to lift it up and put it on the left rosa, but did not move it up or down to check for ataxia. No ataxia in the left leg. Gait deferred. On general examination, there is no carotid bruit or murmur, S1-S2 audible. Abdomen is soft nontender. Chest is clear. Peripheral pulses are present. No edema. Results - Laboratory Findings CBC and BMP: 01/29/21 10:19 01/29/21 10:19 Abnormal Lab Findings: Abnormal Labs 01/29/21 01/29/21 10:19 13:22 Urine Appearance Cloudy H Ur Leukocyte Esterase Moderate H Urine WBC 10 H Ur Squamous Epith Cells 14 H Urine Bacteria Occasional H Urine Mucus Occasional H SARS-CoV-2 (PCR) Detected A Assessment and Plan Assessment: * Subacute worsening of the baseline right hemiparesis, and right hemisensory deficit. Rule out CVA. * History of CVA involving the left temporal lobe in 2010 with residual mild right-sided deficits. * Positive Covid-19 * Chronic cephalalgia, now seems to have resolved. Patient not complaining of any headache today. * Chronic vertigo, also not complaining as much. Some dizziness. * History of B12 deficiency. Plan: * MRI of the brain to evaluate for an acute stroke. * Continue aspirin. We will add Plavix 75 mg pending MRI. * Lipid panel revealed cholesterol 168, LDL 89, HDL 42 and triglycerides were 81. Continue statins. * Hemoglobin A1c 5.6 on 03/02/2020. We will repeat A1c. * Patient had a normal CTA of head and neck on 01/15/2021 which was normal. No need to repeat. * 2-D echo from 12/10/2020 showed normal left-ventricular size, mild concentric LVH, EF is 55-60%. Mild AR. * We will follow.
[2021-01-30] MEDS: CLOPIDOGREL 75 MG TAB PO SCH (16:15)
--- NOTE | 2021-01-30 16:16 | PN ---
PROGRESS NOTE This is a 50-year-old white female who came in with right-sided hemiparesis in the right arm and right leg, had some double vision and some slurring of speech. She came by ambulance to the hospital. She was seen by Neurology overnight. She is answering questions appropriately. CARDIOVASCULAR: S1, S2. LUNGS: Clear. GI: Soft. ASSESSMENT: 1. Subacute worsening of the baseline right hemiparesis, right hemisensory deficit. Rule out CVA. 2. History of cerebrovascular accident involving the left temporal lobe in 2010 with residual mild right-sided defects. 3. History of positive COVID-19 recently. 4. Chronic cephalgia. 5. Chronic vertigo. 6. B12 deficiency. MRI of the brain. Continue aspirin, Plavix. Statins for cholesterol. Hemoglobin A1c. Echo two months ago showed ejection fraction 55% to 60%, mild AR. Continue to follow. Wait for MRIs. Wait for neurology recommendations. MMODL / IJN: [id number] /
[2021-01-30] MEDS: ATORVASTATIN 20 MG TAB PO SCH (20:35)
[2021-01-30] MEDS: ARIPiprazole 5 MG TAB PO SCH (20:36)
[2021-01-31 01:45] LABS: Hemoglobin A1C 5.6 % (4.0-6.0)
[2021-01-31] MEDS: SODIUM CHLORIDE 0.9% 1,000 ML IV SCH ×2 (06:07→19:38)
--- NOTE | 2021-01-31 06:47 | P.PAINCN ---
History of Present Illness - Reason for Consult Consult date: 01/31/21 - History of Present Illness 50-year-old female well-known to the hospital with multiple admissions to the hospital. She has a history of right-sided weakness from previous CVA. Noted a recent history of worsening right-sided weakness and I came to the hospital. We are consulted for lumbar epidural steroid. When I talked to the patient most of her complaints are regarding her weakness specifically of her upper extremity. She says that she does have pain, however her main complaint is weakness. She says she is unable to move her right arm or right lower extremity. I talked her about the epidural I did mention that she had one recently and there is risk of doing one so close to her most recent one. Of note she has now tested positive for COVID on PCR. On physical exam she is unable to move her right upper extremity or right lower extremity has full strength of her left upper extremity and left lower extremity. I do not feel at this time an epidural steroid injection would be of benefit to her especially given that she is now positive for COVID and I do not want to administer any immunosuppresive medications. . Past Medical History Past Medical History: Chest Pain / Angina, COPD, CVA/TIA, Hyperlipidemia, Memory Impairment, Neurologic Disorder Additional Past Medical History / Comment(s): Pt recently admitted to [facility] on 12/31/20 with back pain. 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 History of Any Multi-Drug Resistant Organisms: None Reported Past Surgical History: Section, Tonsillectomy, Tubal Ligation Additional Past Surgical History / Comment(s): 01/02/21 lumbar puncture, past trach/peg tube, pt thinks some kind of brain/skull surgery while comatose in 2010 at [facility]. Past Anesthesia/Blood Transfusion Reactions: No Reported Reaction Smoking Status: Former smoker - Past Family History Mother Family Medical History: Cancer Additional Family Medical History / Comment(s): Mother of cancer, pt does not know what type. Father Family Medical History: Cancer Additional Family Medical History / Comment(s): Father is alive and has had 3 di fferent types of cancer but survived them all. Medications and Allergies Home Medications Medication Instructions Recorded Confirmed Type ARIPiprazole [Abilify] 5 mg PO HS 02/29/20 01/29/21 History Aspirin EC [Ecotrin Low Dose] 81 mg PO DAILY 07/16/20 01/29/21 History Vitamin B Complex 1 cap PO DAILY 07/16/20 01/29/21 History Dextroamphetamine/Amphetamine 20 mg PO DAILY #3 tab 09/24/20 01/29/21 Rx [Adderall] Atorvastatin Calcium [Lipitor] 20 mg PO HS 10/13/20 01/29/21 History Nitroglycerin Sl Tabs [Nitrostat] 0.4 mg SL Q5M PRN 12/04/20 01/29/21 History Sennosides [Senokot] 8.6 mg PO BID 30 Days #60 tab 12/08/20 01/29/21 Rx Midodrine [ProAmatine] 5 mg PO AC-TID tab 12/11/20 01/29/21 Rx Cyanocobalamin [Vitamin B-12] 1,000 mcg PO DAILY tab 12/31/20 01/29/21 Rx Albuterol Nebulized [Ventolin 2.5 mg INHALATION RT-QID PRN 01/15/21 01/29/21 History Nebulized] Fluticasone/Umeclidin/Vilanter 1 puff INHALATION RT-DAILY 01/15/21 01/29/21 History [Trelegy Ellipta 100-62.5-25] Meloxicam [Mobic] 15 mg PO DAILY 01/15/21 01/29/21 History Allergies Allergy/AdvReac Type Severity Reaction Status Date / Time cat dander Allergy Rash/Hives Verified 01/29/21 13:21 tomato Allergy Rash/Hives Verified 01/29/21 13:21 Physical Exam Vitals: Vital Signs Temp Pulse Pulse Resp BP BP Pulse Ox 01/31/21 02:00 98.5 F 69 16 100/72 98 01/30/21 20:00 98.3 F 70 16 105/69 93 L 01/30/21 13:05 98.2 F 71 16 131/82 99 01/30/21 12:41 98 F 68 16 128/78 98 01/30/21 10:35 98.1 F 71 16 107/74 98 01/30/21 08:06 98 F 74 16 121/79 97 Intake and Output 01/30/21 01/30/21 01/31/21 14:59 22:59 06:59 Other: # Voids 1 1 Weight 99.79 kg Results CBC & Chem 7: 01/29/21 10:19 01/29/21 10:19 PQRS Measure Charge Sheet PQRS Narrative: Smoking Status Current every day smoker Do You Want the Pneumonia Vaccine Up to Date Vaccine AT THIS TIME? Blood Pressure [Right Arm] 100/72 Blood Pressure 128/78 Pain Intensity [Right 2 Generalized] Pain Intensity 0 Pain Scale Used Numeric (1 - 10) Scale Used Numeric (1 - 10) Home Medications: Ambulatory Orders ARIPiprazole [Abilify] 5 mg PO HS 02/29/20 Aspirin EC [Ecotrin Low Dose] 81 mg PO DAILY 07/16/20 Vitamin B Complex 1 cap PO DAILY 07/16/20 Dextroamphetamine/Amphetamine [Adderall] 20 mg PO DAILY #3 tab 09/24/20 Atorvastatin Calcium [Lipitor] 20 mg PO HS 10/13/20 Nitroglycerin Sl Tabs [Nitrostat] 0.4 mg SL Q5M PRN 12/04/20 Sennosides [Senokot] 8.6 mg PO BID 30 Days #60 tab 12/08/20 Midodrine [ProAmatine] 5 mg PO AC-TID tab 12/11/20 Cyanocobalamin [Vitamin B-12] 1,000 mcg PO DAILY tab 12/31/20 Albuterol Nebulized [Ventolin Nebulized] 2.5 mg INHALATION RT-QID PRN 01/15/21 Fluticasone/Umeclidin/Vilanter [Trelegy Ellipta 100-62.5-25] 1 puff INHALATION RT-DAILY 01/15/21 Meloxicam [Mobic] 15 mg PO DAILY 01/15/21
--- NOTE | 2021-01-31 07:20 | MR ---
EXAMINATION TYPE: MR brain wo con DATE OF EXAM: 01/31/2021 COMPARISON: CT brain 2 days ago HISTORY: Right sided weakness, hx of prior cva, Positive Covid19 TECHNIQUE: Multiplanar, multisequence imaging of the brain and brainstem is performed without IV cont rast. FINDINGS: Diffusion weighted images demonstrate no evidence of a recent infarct or other diffusion abnormality. There is mild ventricular and sulcal prominence redemonstrated. There is 6 mm T2 hyperintense focus h igh right posterior frontal lobe just anterior to the central sulcus and larger 10 mm focus right fro ntal lobe axial image 21 without restricted diffusion. Old infarct in the left temporal lobe redemons trated Midline structures demonstrate normal morphology. The craniocervical junction appears within normal limits. Normal vascular flow voids are present. The visualized sinuses are clear and the globes are i ntact. IMPRESSION: No MRI evidence for recent infarct. Mild diffuse age-related cerebral atrophy with old le ft sided temporal lobe infarct redemonstrated. Mild nonspecific white matter changes noted.
[2021-01-31] MEDS: TIOTROPIUM 2.5 MCG INHALER INHALATION SCH (08:21)
[2021-01-31] MEDS: SYMBICORT 80-4.5 MCG INHALER INHALATION SCH ×2 (08:21→22:07)
[2021-01-31] MEDS: NON FORMULARY DRUG (Dextroamphetamine/Amphetamine [Adderall] 20 MG Tablet) PO SCH (09:33)
[2021-01-31] MEDS: CLOPIDOGREL 75 MG TAB PO SCH (09:43)
[2021-01-31] MEDS: MIDODRINE 5 MG TAB PO SCH ×3 (09:43→17:43)
[2021-01-31] MEDS: ASPIRIN 81 MG PO SCH (09:43)
[2021-01-31] MEDS: CYANOCOBALAMIN 500 MCG TAB PO SCH (09:44)
[2021-01-31] MEDS: SENNOSIDES 8.6 MG TAB PO SCH ×2 (09:45→19:37)
--- NOTE | 2021-01-31 12:10 | P.PN ---
Subjective Progress Note Date: 01/31/21 Patient was seen for a follow-up. Continues to complain of right-sided weakness. Wants to know" why my right side is weak". Objective - Vital Signs Vital signs: Vital Signs Temp 98.6 F 01/31/21 08:00 Pulse 63 01/31/21 08:00 Resp 16 01/31/21 08:00 BP 114/78 01/31/21 08:00 Pulse Ox 98 01/31/21 08:00 Intake & Output 01/30/21 01/31/21 01/31/21 18:59 06:59 18:59 Weight 99.79 kg Other: # Voids 1 1 - Exam Patient's mental status is intact. Appears very anxious. Examination unchanged. - Labs CBC & Chem 7: 01/29/21 10:19 01/29/21 10:19 Assessment and Plan Assessment: * Subacute worsening of the baseline right hemiparesis, and right hemisensory deficit. No evidence of acute CVA on MRI. Possible conversion disorder. * History of CVA involving the left temporal lobe in 2010 with residual mild right-sided deficits. * Positive Covid-19 * Chronic cephalalgia, now seems to have resolved. Patient not complaining of any headache today. * Chronic vertigo, also not complaining as much. Some dizziness. * History of B12 deficiency. Plan: * MRI of the brain revealed no acute stroke. * Patient currently on dual antiplatelet medication with aspirin 81 mg and Plavix 75 mg. With negative MRI, she does not need to be on dual antiplatelet agent. May be switch from aspirin to Plavix 75 mg daily if okay from medical standpoint. I see patient has been scheduled for epidural, for which Plavix has to be discontinued. We will leave it up to her primary physician regarding choice of antiplatelet medication (aspirin versus Plavix). * Lipid panel revealed cholesterol 168, LDL 89, HDL 42 and triglycerides were 81. Continue statins. * Repeat Hemoglobin A1c 01/29/2021 was normal 5.6. Previous hemoglobin A1c 5.6 also on 03/02/2020. * Blood pressure is well-controlled 114/78. * Patient had a normal CTA of head and neck on 01/15/2021 which was normal. No need to repeat. * 2-D echo from 12/10/2020 showed normal left-ventricular size, mild concentric LVH, EF is 55-60%. Mild AR. * PT and OT. * Neurologically clear for discharge.
--- NOTE | 2021-01-31 18:25 | PN ---
PROGRESS NOTE This 50-year-old white female had an MRI of the brain that showed no stroke. She has possible conversion disorder for the right arm, right leg not moving. Will get Psychiatry involved. Pain clinic doctor saw her, does not want to do an epidural shot at this time. CARDIOVASCULAR: S1, S2. LUNGS: Clear. GI: Soft. HEMATOLOGY: Negative Homans. PSYCH: Fair mood and affect. PLAN: Possible discharge home or to the longterm, depending on PT/OT recommendations. Discussed case with her father, who is closest kin. Prognosis guarded. Wait for neurology recommendations. MMODL / IJN: [id number] /
[2021-01-31] MEDS: ATORVASTATIN 20 MG TAB PO SCH (19:37)
[2021-01-31] MEDS: ARIPiprazole 5 MG TAB PO SCH (19:37)
[2021-02-01] MEDS: NON FORMULARY DRUG (Dextroamphetamine/Amphetamine [Adderall] 20 MG Tablet) PO SCH (07:43)
[2021-02-01 07:47] VITALS: BP 108/72; PULSE 61; RESP 17; TEMP 97.8
[2021-02-01] MEDS: ASPIRIN 81 MG PO SCH (07:49)
[2021-02-01] MEDS: CYANOCOBALAMIN 500 MCG TAB PO SCH (07:49)
[2021-02-01] MEDS: CLOPIDOGREL 75 MG TAB PO SCH (07:49)
[2021-02-01] MEDS: SENNOSIDES 8.6 MG TAB PO SCH (07:49)
[2021-02-01] MEDS: MIDODRINE 5 MG TAB PO SCH ×2 (07:49→13:09)
[2021-02-01] MEDS: ALBUTEROL HFA INHALER INHALATION PRN ×2 (08:57→16:07)
[2021-02-01] MEDS: TIOTROPIUM 2.5 MCG INHALER INHALATION SCH (08:58)
[2021-02-01] MEDS: SYMBICORT 80-4.5 MCG INHALER INHALATION SCH (08:58)
[2021-02-01 09:42] LABS: Basophils # (A) 0.04 X 10*3/uL (0.00-0.10); Basophils % (A) 0.5 %; Eosinophils # (A) 0.14 X 10*3/uL (0.04-0.35); Eosinophils % (A) 1.6 %; HGB 11.9 g/dL (12.0-15.0); Lymphocytes # (A) 2.54 X 10*3/uL (0.90-5.00); Lymphocytes % (A) 29.6 %; MCH 30.1 pg (27.0-32.0); MCHC 32.2 g/dL (32.0-37.0); MCV 93.7 fL (80.0-97.0); Monocytes # (A) 0.66 X 10*3/uL (0.20-1.00); Monocytes % (A) 7.7 %; Neutrophils # (A) 5.17 X 10*3/uL (1.80-7.70); Neutrophils % (A) 60.4 %; Platelet Count 219 X 10*3/uL (140-440); RBC 3.95 X 10*6/uL (4.10-5.20); RDW 13.7 % (11.5-14.5); WBC 8.57 X 10*3/uL (4.50-10.00)
[2021-02-01 10:32] LABS: African American GFR (CKD) 123.2 (60.0-200.0); Albumin 4.1 g/dL (3.80-4.90); Albumin/Globulin Ratio 2.16 (1.60-3.17); Anion Gap 8.3 mmol/L (4.00-12.00); C Reactive Protein 0.4 mg/dL (0.0-0.8); Calcium 9.1 mg/dL (8.7-10.3); Carbon Dioxide 23.7 mmol/L (21.6-31.8); Globulin 1.9 g/dL (1.6-3.3); Non-African American GFR(CKD) 106.3 (60.0-200.0); Potassium 4.1 mmol/L (3.5-5.5); Total Bilirubin 0.5 mg/dL (0.3-1.2)
--- NOTE | 2021-02-01 14:19 | DS ---
DISCHARGE SUMMARY A 50-year-old white female admitted with generalized weakness, ataxia, right hemiparesis secondary to possible conversion disorder and stroke was ruled out. Plavix was added to her medications. Otherwise, she is generalized weak. She has limited motion of right arm, right leg attributed to cervical and lumbar disc disease, and possible conversion disorder. She has chronic dizziness secondary to possible vision loss. She has encephalomalacia of the frontal part of her brain. Seen in hospital by Neurology who cleared her for discharge. MEDICINES: 1. Plavix 75 daily. 2. Abilify 5 mg daily. 3. Aspirin 81 daily. 4. Vitamin B daily. 5. Adderall 20 daily. 6. Lipitor 20 daily. 7. Nitrostat sublingual p.r.n. 8. Senokot b.i.d. 9. ProAmatine 5 mg a.c. t.i.d.. 10.Vitamin B12, 1000 mcg daily. 11.Ventolin inhaler, nebulized Ventolin q.6 hours p.r.n. 12.Trelegy Ellipta 100/62.5/25 one puff daily. CONDITION: Stable. PROGNOSIS: Guarded. AMBULATE: As tolerated. Continue with physical therapy for right arm right leg weakness secondary to cervical lumbar disc disease and possible conversion disorder. Follow up with Dr. Chris Bocanegra at [facility]. MMDAVIDL / CHEYANNEN: [id number] /
== END 2021-02-01 16:23 ==
LOC: EC 08:53 → 5NMEDONC 13:54 → 4SSUR 14:47 → 6NMEDSUR 01-30 12:25
PROVIDERS: ADMIT Family Medicine; ATTEND Family Medicine
DX: I69.351 Hemiplegia and hemiparesis following cerebral infarction affecting right dominant side (principal); U07.1 COVID-19; R53.1 Weakness; R42 Dizziness and giddiness; E53.8 Deficiency of other specified B group vitamins; M79.671 Pain in right foot; R47.81 Slurred speech; E78.5 Hyperlipidemia, unspecified; H53.2 Diplopia; J44.9 Chronic obstructive pulmonary disease, unspecified; E03.9 Hypothyroidism, unspecified; F17.200 Nicotine dependence, unspecified, uncomplicated; G93.89 Other specified disorders of brain; Z79.899 Other long term (current) drug therapy; Z79.1 Long term (current) use of non-steroidal anti-inflammatories (NSAID); Z79.82 Long term (current) use of aspirin; J30.81 Allergic rhinitis due to animal (cat) (dog) hair and dander; Z91.018 Allergy to other foods; Z98.51 Tubal ligation status; Z98.891 History of uterine scar from previous surgery; Z87.820 Personal history of traumatic brain injury; Z80.9 Family history of malignant neoplasm, unspecified; G31.9 Degenerative disease of nervous system, unspecified; F41.9 Anxiety disorder, unspecified; H91.91 Unspecified hearing loss, right ear; H54.7 Unspecified visual loss
CPT/HCPCS: 96360; 96361 ×2; 99285; 36415; 94640 ×6; 93005; 97530; 97163; 80053 ×2; 82607; 83605; 83615; 83735; 84484; 85025 ×2; 85610; 85730; 86140; 81001; 83036; 87636; 71046; 70450; 70551; G0378 ×4

== ENCOUNTER 2021-02-11 14:57 | Emergency (ER) | payer MEDICARE, OTHER ==
[2021-02-11 15:10] VITALS: RESP 18
--- NOTE | 2021-02-11 15:19 | ED ---
General Adult HPI - General Chief complaint: Chest Pain Stated complaint: Chest pain,Stroke symptoms Time Seen by Provider: 02/11/21 15:01 Source: patient, EMS, RN notes reviewed, old records reviewed Mode of arrival: EMS Limitations: no limitations - History of Present Illness Initial comments: 50-year-old female presented for evaluation of chest pain. She's had intermittent chest pain over the past several days. She was given nitroglycerin at the long term where she resides. She states that currently her chest pain is resolved. She has no previous history of CAD. She does have a listed history of angina on her medical history. She has previous history of CVA with residual right-sided weakness and numbness. She is in the long term for rehabilitation. She denies associated diaphoresis or vomiting. Pain was at the time of smoking a cigarette. - Related Data Home Medications Medication Instructions Recorded Confirmed ARIPiprazole [Abilify] 5 mg PO HS 02/29/20 02/11/21 Aspirin EC [Ecotrin Low Dose] 81 mg PO DAILY 07/16/20 02/11/21 Vitamin B Complex 1 cap PO DAILY 07/16/20 02/11/21 Atorvastatin Calcium [Lipitor] 20 mg PO HS 10/13/20 02/11/21 Nitroglycerin Sl Tabs [Nitrostat] 0.4 mg SL Q5M PRN 12/04/20 02/11/21 Cyanocobalamin (Vitamin B-12) 1,000 mcg PO DAILY 02/11/21 02/11/21 [Vitamin B-12] Fluticasone Propionate [Flonase 1 spray EA NOSTRIL DAILY 02/11/21 02/11/21 Allergy Relief] Ipratropium-Albuterol Nebulize 3 ml INHALATION RT-Q6H PRN 02/11/21 02/11/21 [Duoneb 0.5 mg-3 mg/3 ml Soln] Midodrine [ProAmatine] 5 mg PO TID 02/11/21 02/11/21 Nystatin 100,000 Unit/gm Powd 1 applic TOPICAL DAILY 02/11/21 02/11/21 [Mycostatin Powder] Previous Rx's Medication Instructions Recorded Sennosides [Senokot] 8.6 mg PO BID 30 Days #60 tab 12/08/20 Clopidogrel [Plavix] 75 mg PO DAILY tab 02/01/21 Allergies Allergy/AdvReac Type Severity Reaction Status Date / Time cat dander Allergy Rash/Hives Verified 02/11/21 16:24 tomato Allergy Rash/Hives Verified 02/11/21 16:24 codeine AdvReac Unknown Verified 02/11/21 16:24 Review of Systems ROS Statement: Those systems with pertinent positive or pertinent negative responses have been documented in the HPI. ROS Other: All systems not noted in ROS Statement are negative. Past Medical History Past Medical History: Chest Pain / Angina, COPD, CVA/TIA, Hyperlipidemia, Memory Impairment, Neurologic Disorder Additional Past Medical History / Comment(s): Pt recently admitted to [facility] on 12/31/20 with back pain. 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 History of Any Multi-Drug Resistant Organisms: None Reported Past Surgical History: Section, Tonsillectomy, Tubal Ligation Additional Past Surgical History / Comment(s): 01/02/21 lumbar puncture, past trach/peg tube, pt thinks some kind of brain/skull surgery while comatose in 2010 at [facility]. Past Anesthesia/Blood Transfusion Reactions: No Reported Reaction Past Psychological History: Anxiety Smoking Status: Former smoker - Past Family History Mother Family Medical History: Cancer Additional Family Medical History / Comment(s): Mother of cancer, pt does not know what type. Father Family Medical History: Cancer Additional Family Medical History / Comment(s): Father is alive and has had 3 different types of cancer but survived them all. General Exam Limitations: no limitations General appearance: alert, in no apparent distress Head exam: Present: atraumatic, normocephalic Eye exam: Present: normal appearance, PERRL ENT exam: Present: normal exam Neck exam: Present: normal inspection. Absent: tenderness, meningismus Respiratory exam: Present: normal lung sounds bilaterally. Absent: respiratory distress, wheezes Cardiovascular Exam: Present: regular rate, normal rhythm GI/Abdominal exam: Present: soft. Absent: distended, tenderness, guarding, rebound Extremities exam: Present: normal inspection. Absent: joint swelling Neurological exam: Present: alert, oriented X3, CN II-XII intact, motor sensory deficit (4/5 weakness of both the right upper and right lower extremity) Psychiatric exam: Present: flat affect Skin exam: Present: warm, dry, intact. Absent: cyanosis, diaphoretic Course Vital Signs 02/11/21 02/11/21 14:59 16:06 Pulse Rate 70 67 Respiratory 18 18 Rate Blood Pressure 109/87 119/90 O2 Sat by Pulse 99 97 Oximetry EKG Findings - EKG Comments: EKG Findings:: KJ: Normal sinus rhythm, rate is 69, WI interval 122, QRS duration 80, QTC 417, no ST segment elevation Medical Decision Making - Medical Decision Making 50-year-old female presented with an episode of chest pain. Today and y esterday. This was while smoking. It did not have typical features and is currently resolved. Her EKG is nonischemic normal sinus rhythm. She has a normal CBC, normal CMP. She is currently at the long term and her primary care physician is very familiar with her. Did discuss case with Dr. Bocanegra who agrees with outpatient workup. Chest x-ray negative for acute cardiopulmonary disease. - Lab Data Result diagrams: 02/11/21 15:17 02/11/21 15:17 Lab Results 02/11/21 02/11/21 02/11/21 Range/Units 15:17 15:17 15:17 WBC 10.1 (3.8-10.6) k/uL RBC 4.24 (3.80-5.40) m/uL Hgb 13.1 (11.4-16.0) gm/dL Hct 38.6 (34.0-46.0) % MCV 90.9 (80.0-100.0) fL MCH 30.8 (25.0-35.0) pg MCHC 33.9 (31.0-37.0) g/dL RDW 13.8 (11.5-15.5) % Plt Count 272 (150-450) k/uL MPV 7.7 Neutrophils % 63 % Lymphocytes % 28 % Monocytes % 5 % Eosinophils % 2 % Basophils % 1 % Neutrophils # 6.3 (1.3-7.7) k/uL Lymphocytes # 2.8 (1.0-4.8) k/uL Monocytes # 0.5 (0-1.0) k/uL Eosinophils # 0.2 (0-0.7) k/uL Basophils # 0.1 (0-0.2) k/uL PT 9.8 (9.0-12.0) sec INR 0.9 (<1.2) APTT 22.0 (22.0-30.0) sec Sodium 142 (137-145) mmol/L Potassium 4.3 (3.5-5.1) mmol/L Chloride 107 (98-107) mmol/L Carbon Dioxide 28 (22-30) mmol/L Anion Gap 7 mmol/L BUN 10 (7-17) mg/dL Creatinine 0.55 (0.52-1.04) mg/dL Est GFR (CKD-EPI)AfAm >90 (>60 ml/min/1.73 sqM) Est GFR (CKD-EPI)NonAf >90 (>60 ml/min/1.73 sqM) Glucose 91 (74-99) mg/dL Calcium 9.5 (8.4-10.2) mg/dL Magnesium 2.1 (1.6-2.3) mg/dL Total Bilirubin 0.4 (0.2-1.3) mg/dL AST 33 (14-36) U/L ALT 32 (4-34) U/L Alkaline Phosphatase 85 (38-126) U/L Troponin I (0.000-0.034) ng/mL Total Protein 7.0 (6.3-8.2) g/dL Albumin 4.1 (3.5-5.0) g/dL 02/11/21 Range/Units 15:17 WBC (3.8-10.6) k/uL RBC (3.80-5.40) m/uL Hgb (11.4-16.0) gm/dL Hct (34.0-46.0) % MCV (80.0-100.0) fL MCH (25.0-35.0) pg MCHC (31.0-37.0) g/dL RDW (11.5-15.5) % Plt Count (150-450) k/uL MPV Neutrophils % % Lymphocytes % % Monocytes % % Eosinophils % % Basophils % % Neutrophils # (1.3-7.7) k/uL Lymphocytes # (1.0-4.8) k/uL Monocytes # (0-1.0) k/uL Eosinophils # (0-0.7) k/uL Basophils # (0-0.2) k/uL PT (9.0-12.0) sec INR (<1.2) APTT (22.0-30.0) sec Sodium (137-145) mmol/L Potassium (3.5-5.1) mmol/L Chloride (98-107) mmol/L Carbon Dioxide (22-30) mmol/L Anion Gap mmol/L BUN (7-17) mg/dL Creatinine (0.52-1.04) mg/dL Est GFR (CKD-EPI)AfAm (>60 ml/min/1.73 sqM) Est GFR (CKD-EPI)NonAf (>60 ml/min/1.73 sqM) Glucose (74-99) mg/dL Calcium (8.4-10.2) mg/dL Magnesium (1.6-2.3) mg/dL Total Bilirubin (0.2-1.3) mg/dL AST (14-36) U/L ALT (4-34) U/L Alkaline Phosphatase (38-126) U/L Troponin I <0.012 (0.000-0.034) ng/mL Total Protein (6.3-8.2) g/dL Albumin (3.5-5.0) g/dL Disposition Clinical Impression: Chest pain Disposition: HOME SELF-CARE Condition: Fair Instructions (If sedation given, give patient instructions): Chest Pain (ED) Is patient prescribed a controlled substance at d/c from ED?: No Referrals: Chris Bocanegra MD [Primary Care Provider] - 1-2 days Time of Disposition: 17:08
[2021-02-11 15:26] LABS: Basophils % (A) 1 %; Eosinophils # (A) 0.2 k/uL (0-0.7); Eosinophils % (A) 2 %; HCT 38.6 % (34.0-46.0); HGB 13.1 gm/dL (11.4-16.0); Lymphocytes # (A) 2.8 k/uL (1.0-4.8); Lymphocytes % (A) 28 %; MCH 30.8 pg (25.0-35.0); MCHC 33.9 g/dL (31.0-37.0); MCV 90.9 fL (80.0-100.0); Mean Platelet Volume 7.7; Monocytes # (A) 0.5 k/uL (0-1.0); Monocytes % (A) 5 %; Neutrophils # (A) 6.3 k/uL (1.3-7.7); Neutrophils % (A) 63 %; Platelet Count 272 k/uL (150-450); RBC 4.24 m/uL (3.80-5.40); RDW 13.8 % (11.5-15.5); WBC 10.1 k/uL (3.8-10.6)
[2021-02-11 15:27] LABS: Basophils # (A) 0.1 k/uL (0-0.2)
[2021-02-11 15:37] LABS: ALT 32 U/L (4-34); AST 33 U/L (14-36); African American GFR (CKD) >90 (>60 ml/min/1.73 sqM); Albumin 4.1 g/dL (3.5-5.0); Alkaline Phosphatase 85 U/L (38-126); Anion Gap 7 mmol/L; Blood Urea Nitrogen 10 mg/dL (7-17); Calcium 9.5 mg/dL (8.4-10.2); Carbon Dioxide 28 mmol/L (22-30); Chloride 107 mmol/L (98-107); Glucose 91 mg/dL (74-99); Magnesium 2.1 mg/dL (1.6-2.3); Non-African American GFR(CKD) >90 (>60 ml/min/1.73 sqM); Potassium 4.3 mmol/L (3.5-5.1); Sodium 142 mmol/L (137-145); Total Bilirubin 0.4 mg/dL (0.2-1.3)
--- NOTE | 2021-02-11 15:41 | XR ---
EXAMINATION TYPE: XR chest 2V DATE OF EXAM: 02/11/2021 COMPARISON: 01/29/2019 HISTORY: Weakness TECHNIQUE: Frontal and lateral views of the chest are obtained. FINDINGS: Heart size is within normal limits. No pleural effusion, focal consolidation or pneumothor ax. Degenerative changes of the acromioclavicular joints. Mild degenerative changes of the lumbar spi ne. IMPRESSION: 1. No acute pulmonary disease.
[2021-02-11 15:52] LABS: INR 0.9 (<1.2); Prothrombin Time 9.8 sec (9.0-12.0)
--- NOTE | 2021-02-11 17:53 | US ---
EXAMINATION TYPE: US venous doppler duplex LE RT DATE OF EXAM: 02/11/2021 5:38 PM COMPARISON: NONE CLINICAL HISTORY: swelling. Swelling. Patient unable to give clear history. SIDE PERFORMED: Right TECHNIQUE: The lower extremity deep venous system is examined utilizing real time linear array sonog annie with graded compression, doppler sonography and color-flow sonography. VESSELS IMAGED: Common Femoral Vein Deep Femoral Vein Greater Saphenous Vein * Femoral Vein Popliteal Vein Small Saphenous Vein * Proximal Calf Veins (* superficial vessels) Right Leg: Limited due to patient body habitus and edema. No evidence of DVT in veins imaged at this time. The right common femoral, superficial femoral,, popliteal veins compress normally, there is normal co raul flow, visualized waveforms are normal IMPRESSION: No deep venous thrombosis is evident, technologist reports a limited exam, follow-up as indicated
[2021-02-11] MEDS ORDERED: MORPHINE SULFATE 4 MG/ML SYRINGE IVP STA (18:45)
[2021-02-11 21:25] VITALS: BP 113/66; PULSE 74
[2021-02-11 22:23] VITALS: TEMP 98.7
== END 2021-02-11 22:25 | disposition home or self-care (01) ==
LOC: EC 14:57 → SUPCPDRO 14:57 → EC 22:25
DX: R07.89 Other chest pain (principal); R53.1 Weakness; R20.0 Anesthesia of skin; E03.9 Hypothyroidism, unspecified; F41.9 Anxiety disorder, unspecified; J44.9 Chronic obstructive pulmonary disease, unspecified; E78.5 Hyperlipidemia, unspecified; Z86.73 Personal history of transient ischemic attack (TIA), and cerebral infarction without residual deficits; Z87.891 Personal history of nicotine dependence; Z79.82 Long term (current) use of aspirin; Z79.02 Long term (current) use of antithrombotics/antiplatelets; Z79.899 Other long term (current) drug therapy; Z79.51 Long term (current) use of inhaled steroids; Z88.5 Allergy status to narcotic agent
CPT/HCPCS: 36415; 93005; 80053; 83735; 84484; 85025; 85610; 85730; 71046; 93971; 99285; 96374; J2270

== ENCOUNTER 2021-06-24 08:07 | Observation (INO) | payer MEDICARE, OTHER ==
[2021-06-24] MEDS ORDERED: SODIUM CHLORIDE 0.9% 1,000 ML IV STA (08:30)
--- NOTE | 2021-06-24 08:33 | ED ---
General Adult HPI - General Chief complaint: Chest Pain Stated complaint: Chest pain Time Seen by Provider: 06/24/21 08:09 Source: patient Mode of arrival: EMS Limitations: no limitations - History of Present Illness Initial comments: Dictation was produced using [employer] dictation software. please excuse any grammatical, word or spelling errors. Chief Complaint: 50-year-old female presents emergency department for chief complaint of one day of epigastric and back pain. History of Present Illness: Patient is a 50-year-old female she came to the emergency department via EMS. According to EMS patient is brought to the emergency department for 3 days of chest pain. She was given 2 nitroglycerin which improved her symptoms. At the bedside patient was interviewed. She states that she has abdominal and back pain. States that she's been having that for the last 1 day. She states that she has no nausea or diaphoresis. No rad iation of symptoms. No numbness or paresthesias to the arms or legs. Patient states that her symptoms are moderate. She does report improvement of symptoms after having been given nitroglycerin from EMS. The ROS documented in this emergency department record has been reviewed and confirmed by me. Those systems with pertinent positive or negative responses have been documented in the HPI. All other systems are other negative and/or noncontributory. PHYSICAL EXAM: General Impression: Alert and oriented x3, not in acute distress HEENT: Normocephalic atraumatic, extra-ocular movements intact, pupils equal and reactive to light bilaterally, mucous membranes moist. Cardiovascular: Heart regular rate and rhythm Chest: Able to complete full sentences, no retractions, no tachypnea Abdomen: abdomen soft, non-tender, non-distended, no organomegaly Musculoskeletal: Pulses present and equal in all extremities, no peripheral edema Motor: no focal deficits noted Neurological: CN II-XII grossly intact, no focal motor or sensory deficits noted Skin: Intact with no visualized rashes Psych: Normal affect and mood ED course: 50-year-old female presents to emergency department via EMS for chest pain epigastric pain and back pain. Vital signs upon arrival shows blood pressure 99/60, rest of vital signs within acceptable limits. Patient's medications are reviewed. Laboratory evaluation obtained. CBC, coag panel, metabolic panel is unremarkable. Troponin is negative. Chest x-ray shows no acute processes. Patient reevaluated at bedside at 10 AM found with stable medical condition. Given that patient had epigastric symptoms improved nitroglycerin is concern of acute coronary syndrome. Patient be admitted for serial troponins Cardec monitoring and cardiology consultation. EKG interpretation: Ventricular rate 72, normal sinus rhythm, WI interval 126, QRS 78, QTc 431. No WI prolongation, no QTC prolongation, no ST or T-wave changes noted. Overall, this EKG is unremarkable - Related Data Home Medications Medication Instructions Recorded Confirmed Aspirin EC [Ecotrin Low Dose] 81 mg PO DAILY 07/16/20 06/24/21 Vitamin B Complex 1 cap PO DAILY 07/16/20 06/24/21 Atorvastatin Calcium [Lipitor] 20 mg PO HS 10/13/20 06/24/21 Nitroglycerin Sl Tabs [Nitrostat] 0.4 mg SL Q5M PRN 12/04/20 06/24/21 Cyanocobalamin (Vitamin B-12) 1,000 mcg PO DAILY 02/11/21 06/24/21 [Vitamin B-12] Fluticasone Propionate [Flonase 1 spray EA NOSTRIL DAILY 02/11/21 06/24/21 Allergy Relief] Midodrine [ProAmatine] 5 mg PO TID 02/11/21 06/24/21 Cetirizine HCl [Zyrtec] 10 mg PO DAILY 06/24/21 06/24/21 Dextroamphetamine/Amphetamine 10 mg PO BID 06/24/21 06/24/21 [Adderall] Fluticasone/Umeclidin/Vilanter 1 puff INHALATION RT-DAILY 06/24/21 06/24/21 [Trelegy Ellipta 200-62.5-25] Furosemide [Lasix] 20 mg PO DAILY 06/24/21 06/24/21 Potassium Chloride ER [K-Dur 10] 10 meq PO DAILY 06/24/21 06/24/21 Previous Rx's Medication Instructions Recorded Sennosides [Senokot] 8.6 mg PO BID 30 Days #60 tab 12/08/20 Clopidogrel [Plavix] 75 mg PO DAILY tab 02/01/21 Allergies Allergy/AdvReac Type Severity Reaction Status Date / Time cat dander Allergy Rash/Hives Verified 06/24/21 09:56 tomato Allergy Rash/Hives Verified 06/24/21 09:56 codeine AdvReac Unknown Verified 06/24/21 09:56 Review of Systems ROS Statement: Those systems with pertinent positive or pertinent negative responses have been documented in the HPI. ROS Other: All systems not noted in ROS Statement are negative. Past Medical History Past Medical History: Chest Pain / Angina, COPD, CVA/TIA, Hyperlipidemia, Memory Impairment, Neurologic Disorder Additional Past Medical History / Comment(s): Pt recently admitted to [facility] on 12/31/20 with back pain. 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 History of Any Multi-Drug Resistant Organisms: None Reported Past Surgical History: Section, Tonsillectomy, Tubal Ligation Additional Past Surgical History / Comment(s): 01/02/21 lumbar puncture, past trach/peg tube, pt thinks some kind of brain/skull surgery while comatose in 2010 at [facility]. Past Anesthesia/Blood Transfusion Reactions: No Reported Reaction Past Psychological History: Anxiety Smoking Status: Former smoker Past Alcohol Use History: None Reported Past Drug Use History: None Reported - Past Family History Mother Family Medical History: Cancer Additional Family Medical History / Comment(s): Mother of cancer, pt does not know what type. Father Family Medical History: Cancer Additional Family Medical History / Comment(s): Father is alive and has had 3 different types of cancer but survived them all. General Exam Limitations: no limitations Course Vital Signs 06/24/21 06/24/21 08:09 09:42 Temperature 98.3 F Pulse Rate 82 63 Respiratory 18 16 Rate Blood Pressure 99/60 106/78 O2 Sat by Pulse 96 99 Oximetry Medical Decision Making - Lab Data Result diagrams: 06/24/21 08:34 06/24/21 08:34 Lab Results 06/24/21 06/24/21 06/24/21 Range/Units 08:34 08:34 08:34 WBC 9.1 (3.8-10.6) k/uL RBC 4.68 (3.80-5.40) m/uL Hgb 13.9 (11.4-16.0) gm/dL Hct 41.5 (34.0-46.0) % MCV 88.7 (80.0-100.0) fL MCH 29.8 (25.0-35.0) pg MCHC 33.6 (31.0-37.0) g/dL RDW 14.3 (11.5-15.5) % Plt Count 308 (150-450) k/uL MPV 7.9 Neutrophils % 70 % Lymphocytes % 22 % Monocytes % 4 % Eosinophils % 2 % Basophils % 1 % Neutrophils # 6.4 (1.3-7.7) k/uL Lymphocytes # 2.0 (1.0-4.8) k/uL Monocytes # 0.4 (0-1.0) k/uL Eosinophils # 0.2 (0-0.7) k/uL Basophils # 0.1 (0-0.2) k/uL PT 9.8 (9.0-12.0) sec INR 0.9 (<1.2) APTT 23.3 (22.0-30.0) sec Sodium 140 (137-145) mmol/L Potassium 4.0 (3.5-5.1) mmol/L Chloride 108 H (98-107) mmol/L Carbon Dioxide 24 (22-30) mmol/L Anion Gap 8 mmol/L BUN 11 (7-17) mg/dL Creatinine 0.52 (0.52-1.04) mg/dL Est GFR (CKD-EPI)AfAm >90 (>60 ml/min/1.73 sqM) Est GFR (CKD-EPI)NonAf >90 (>60 ml/min/1.73 sqM) Glucose 111 H (74-99) mg/dL Calcium 9.5 (8.4-10.2) mg/dL Magnesium 2.2 (1.6-2.3) mg/dL Total Bilirubin 0.4 (0.2-1.3) mg/dL AST 30 (14-36) U/L ALT 28 (4-34) U/L Alkaline Phosphatase 121 (38-126) U/L Troponin I (0.000-0.034) ng/mL Total Protein 7.1 (6.3-8.2) g/dL Albumin 3.9 (3.5-5.0) g/dL Lipase 61 (23-300) U/L 06/24/21 Range/Units 08:34 WBC (3.8-10.6) k/uL RBC (3.80-5.40) m/uL Hgb (11.4-16.0) gm/dL Hct (34.0-46.0) % MCV (80.0-100.0) fL MCH (25.0-35.0) pg MCHC (31.0-37.0) g/dL RDW (11.5-15.5) % Plt Count (150-450) k/uL MPV Neutrophils % % Lymphocytes % % Monocytes % % Eosinophils % % Basophils % % Neutrophils # (1.3-7.7) k/uL Lymphocytes # (1.0-4.8) k/uL Monocytes # (0-1.0) k/uL Eosinophils # (0-0.7) k/uL Basophils # (0-0.2) k/uL PT (9.0-12.0) sec INR (<1.2) APTT (22.0-30.0) sec Sodium (137-145) mmol/L Potassium (3.5-5.1) mmol/L Chloride (98-107) mmol/L Carbon Dioxide (22-30) mmol/L Anion Gap mmol/L BUN (7-17) mg/dL Creatinine (0.52-1.04) mg/dL Est GFR (CKD-EPI)AfAm (>60 ml/min/1.73 sqM) Est GFR (CKD-EPI)NonAf (>60 ml/min/1.73 sqM) Glucose (74-99) mg/dL Calcium (8.4-10.2) mg/dL Magnesium (1.6-2.3) mg/dL Total Bilirubin (0.2-1.3) mg/dL AST (14-36) U/L ALT (4-34) U/L Alkaline Phosphatase (38-126) U/L Troponin I <0.012 (0.000-0.034) ng/mL Total Protein (6.3-8.2) g/dL Albumin (3.5-5.0) g/dL Lipase (23-300) U/L Disposition Clinical Impression: Chest pain, Epigastric pain Disposition: ADMITTED IP TO THIS HOSP Condition: Fair
[2021-06-24 08:47] LABS: Basophils # (A) 0.1 k/uL (0-0.2); Basophils % (A) 1 %; Eosinophils # (A) 0.2 k/uL (0-0.7); Eosinophils % (A) 2 %; HCT 41.5 % (34.0-46.0); HGB 13.9 gm/dL (11.4-16.0); Lymphocytes % (A) 22 %; MCH 29.8 pg (25.0-35.0); MCHC 33.6 g/dL (31.0-37.0); MCV 88.7 fL (80.0-100.0); Mean Platelet Volume 7.9; Monocytes # (A) 0.4 k/uL (0-1.0); Monocytes % (A) 4 %; Neutrophils # (A) 6.4 k/uL (1.3-7.7); Neutrophils % (A) 70 %; Platelet Count 308 k/uL (150-450); RBC 4.68 m/uL (3.80-5.40); RDW 14.3 % (11.5-15.5); WBC 9.1 k/uL (3.8-10.6)
[2021-06-24 08:52] LABS: INR 0.9 (<1.2); Partial Thromboplastin Time 23.3 sec (22.0-30.0); Prothrombin Time 9.8 sec (9.0-12.0)
[2021-06-24 08:59] LABS: ALT 28 U/L (4-34); AST 30 U/L (14-36); African American GFR (CKD) >90 (>60 ml/min/1.73 sqM); Albumin 3.9 g/dL (3.5-5.0); Alkaline Phosphatase 121 U/L (38-126); Anion Gap 8 mmol/L; Blood Urea Nitrogen 11 mg/dL (7-17); Calcium 9.5 mg/dL (8.4-10.2); Carbon Dioxide 24 mmol/L (22-30); Chloride 108 mmol/L (98-107); Glucose 111 mg/dL (74-99); Lipase 61 U/L (23-300); Magnesium 2.2 mg/dL (1.6-2.3); Non-African American GFR(CKD) >90 (>60 ml/min/1.73 sqM); Sodium 140 mmol/L (137-145); Total Bilirubin 0.4 mg/dL (0.2-1.3); Total Protein 7.1 g/dL (6.3-8.2)
--- NOTE | 2021-06-24 09:11 | XR ---
EXAMINATION TYPE: XR chest 2V DATE OF EXAM: 06/24/2021 COMPARISON: 02/11/2021 INDICATION: Chest pain TECHNIQUE: Frontal and lateral views of the chest are obtained. FINDINGS: The heart size is normal. The pulmonary vasculature is normal. The lungs are clear. There is hyperinflation and flattening of the diaphragms which can be compatibl e with COPD. IMPRESSION: 1. No acute pulmonary process. 2. Correlate for emphysematous change, stable from comparison
[2021-06-24] MEDS ORDERED: NITROGLYCERIN SL TABS 0.4 MG TAB SUBLINGUAL PRN (09:47)
[2021-06-24] MEDS ORDERED: MIDODRINE 5 MG TAB PO SCH (17:30)
[2021-06-24] MEDS: ACETAMINOPHEN TAB 325 MG TAB PO PRN (17:47)
[2021-06-24] MEDS: SYMBICORT 80-4.5 MCG INHALER INHALATION SCH (19:40)
[2021-06-24] MEDS: ATORVASTATIN 20 MG TAB PO SCH (20:50)
[2021-06-24] MEDS: NON FORMULARY DRUG (Dextroamphetamine/Amphetamine [Adderall] 10 MG Tablet) PO SCH (20:50)
[2021-06-25] MEDS: ACETAMINOPHEN TAB 325 MG TAB PO PRN ×3 (03:41→20:19)
[2021-06-25] MEDS ORDERED: IBUPROFEN 600 MG TAB PO PRN (08:41)
[2021-06-25] MEDS ORDERED: ASPIRIN 325 MG TAB PO SCH (09:00)
[2021-06-25] MEDS: FUROSEMIDE 20 MG TAB PO SCH (09:05)
[2021-06-25] MEDS: CYANOCOBALAMIN 500 MCG TAB PO SCH (09:06)
[2021-06-25] MEDS: MIDODRINE 5 MG TAB PO SCH ×3 (09:06→17:00)
[2021-06-25] MEDS: LORATADINE 10 MG TAB PO SCH (09:06)
[2021-06-25] MEDS: CLOPIDOGREL 75 MG TAB PO SCH (09:06)
[2021-06-25] MEDS: NON FORMULARY DRUG (Dextroamphetamine/Amphetamine [Adderall] 10 MG Tablet) PO SCH ×2 (09:07→20:17)
[2021-06-25] MEDS: SYMBICORT 80-4.5 MCG INHALER INHALATION SCH ×2 (09:11→19:48)
[2021-06-25] MEDS: ASPIRIN 81 MG PO SCH (09:11)
[2021-06-25] MEDS: IPRATROPIUM 0.5 MG/2.5 ML NEBU INHALATION SCH ×4 (09:11→19:48)
[2021-06-25] MEDS: PANTOPRAZOLE 40 MG TABLET PO SCH ×2 (09:11→17:00)
[2021-06-25] MEDS: FLUTICASONE 50MCG/SPRAY NASAL 16GM EA NOSTRIL SCH (09:20)
--- NOTE | 2021-06-25 09:35 | P.CRDCN ---
History of Present Illness History of present illness: HISTORY OF PRESENTING ILLNESS This is a pleasant 50-year-old female past medical history significant for COPD, CVA in 2010 with right sided weakness, memory loss, hyperlipidemia, chronic amadeo ady dependence, memory impairment, chronic back pain, lumbar spondylosis and lumbar facet artrhopathy and right sacroiliitis with epidural steroid injections. She does not follow with a textile artist. We have been asked to see in consultation for chest pain. Patient presents with complaints of left sided chest pain, lightheadedness, dizziness, headache since Thursday. 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 She states she also has back pain but this is chronic. Her chest pain is constant. Non-radiating. Aggravating by movement of her arms and with palpation. She denies injury to her chest. She denies any alleviating factors. She did take tylenol with no improvement. She had associated shortness of breath. Denies associated nausea, diaphoresis, palpitations. She states she does have a cough. Denies fever or chills. She denies lower extremity edema, orthopnea or PND. Patient denies history of [place], diabetes, coronary artery disease. She is a current every day smoker she is decreasing her daily amount, currently smokes 1- 2 cigarettes a day. DIAGNOSTICS EKG reveals sinus rhythm, HR 72, early repolarization, no ST-T wave abnormalities to suggest ischemia. EKG in January 2021 with similar findings. Echocardiogram 12/10/20 revealed EF of 55-60%, mild aortic regurgitation Most recent stress test was a Lexiscan August 2020 which revealed no evidence of reversible ischemia Chest xray no acute cardiopulmonary process. Hyperinflation and flattened diaphragms compatible COPD Laboratory reviewed, CBC unremarkable, sodium 140, potassium 4.0, BUN 11, serum creatinine 0.5, magnesium 2.2, troponin negative 2, COVID-19 PCR negative Current home medications include potassium chloride 10meq daily, midodrine 5mg TID, Lasix 20mg dialy, Plavix 75mg daily and aspirin 81mg daily, atorvastatin 20mg nightly. REVIEW OF SYSTEMS At the time of my exam: CONSTITUTIONAL: Denies fever or chills. CARDIOVASCULAR: +chest pain, +shortness of breath, Denies orthopnea, PND or palpitations. RESPIRATORY: +cough. GASTROINTESTINAL: +epigastric pain Denies abdominal pain, diarrhea, constipation, nausea or vomiting. MUSCULOSKELETAL: +back pain NEUROLOGIC: +headache, lightheadedness, dizziness Denies numbness, tingling, or weakness. ENDOCRINE: Denies fatigue, weight change, polydipsia or polyurina. GENITOURINARY: Denies burning, hematuria or urgency with micturation. HEMATOLOGIC: Denies history of anemia or bleeding. PHYSICAL EXAMINATION Blood pressure 107/71, heart rate 71, afebrile, maintaining saturations on room air CONSTITUTIONAL: No apparent distress. HEENT: Head is normocephalic. Pupils are equal, round. Sclerae anicteric. Mucous membranes of the mouth are moist. No JVD. No carotid bruit. CHEST EXAMINATION: Lungs are clear to auscultation. Increased left sided chest tenderness with palpation and movement of the left arm. HEART EXAMINATION: Regular rate and rhythm. S1, S2 heard. No murmurs, gallops or rub. ABDOMEN: Soft, nontender. Positive bowel sounds. EXTREMITIES: 2+ peripheral pulses, no lower extremity edema and no calf tenderness. NEUROLOGIC EXAMINATION: Patient is awake, alert and oriented x3. ASSESSMENT Chest pain, atypical, very reproducible on exam, EKG with no evidence of ischemic changes, troponin negative x 2 Headache, Lightheadedness, Dizziness History of CVA in 2010 COPD Chronic nicotine dependence Chronic back pain, steroid injections in the past Obesity PLAN -Patient's chest pain is very reproducible on exam. Recent echocardiogram in November 2020 EF 55-60%, and negative stress test in August 2020. -No further workup from a cardiology perspective we will follow the patient as needed. Please reach out with further questions or concerns. Nurse Practitioner note has been reviewed, I agree with a documented findings and plan of care. Patient was seen and examined. Past Medical History Past Medical History: Chest Pain / Angina, COPD, CVA/TIA, Hyperlipidemia, Memory Impairment, Neurologic Disorder Additional Past Medical History / Comment(s): Pt recently admitted to [facility] on 12/31/20 with back pain. 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 History of Any Multi-Drug Resistant Organisms: None Reported Past Surgical History: Section, Tonsillectomy, Tubal Ligation Additional Past Surgical History / Comment(s): 01/02/21 lumbar puncture, past trach/peg tube, pt thinks some kind of brain/skull surgery while comatose in 2010 at [facility]. Past Anesthesia/Blood Transfusion Reactions: No Reported Reaction Past Psychological History: Anxiety Smoking Status: Former smoker Past Alcohol Use History: None Reported Past Drug Use History: None Reported - Past Family History Mother Family Medical History: Cancer Additional Family Medical History / Comment(s): Mother of cancer, pt does not know what type. Father Family Medical History: Cancer Additional Family Medical History / Comment(s): Father is alive and has had 3 different types of cancer but survived them all. Medications and Allergies Home Medications Medication Instructions Recorded Confirmed Type Aspirin EC [Ecotrin Low Dose] 81 mg PO DAILY 07/16/20 06/24/21 History Vitamin B Complex 1 cap PO DAILY 07/16/20 06/24/21 History Atorvastatin Calcium [Lipitor] 20 mg PO HS 10/13/20 06/24/21 History Nitroglycerin Sl Tabs [Nitrostat] 0.4 mg SL Q5M PRN 12/04/20 06/24/21 History Sennosides [Senokot] 8.6 mg PO BID 30 Days #60 tab 12/08/20 06/24/21 Rx Clopidogrel [Plavix] 75 mg PO DAILY tab 02/01/21 06/24/21 Rx Cyanocobalamin (Vitamin B-12) 1,000 mcg PO DAILY 02/11/21 06/24/21 History [Vitamin B-12] Fluticasone Propionate [Flonase 1 spray EA NOSTRIL DAILY 02/11/21 06/24/21 History Allergy Relief] Midodrine [ProAmatine] 5 mg PO TID 02/11/21 06/24/21 History Cetirizine HCl [Zyrtec] 10 mg PO DAILY 06/24/21 06/24/21 History Dextroamphetamine/Amphetamine 10 mg PO BID 06/24/21 06/24/21 History [Adderall] Fluticasone/Umeclidin/Vilanter 1 puff INHALATION RT-DAILY 06/24/21 06/24/21 History [Trelegy Ellipta 200-62.5-25] Furosemide [Lasix] 20 mg PO DAILY 06/24/21 06/24/21 History Potassium Chloride ER [K-Dur 10] 10 meq PO DAILY 06/24/21 06/24/21 History Allergies Allergy/AdvReac Type Severity Reaction Status Date / Time cat dander Allergy Rash/Hives Verified 06/24/21 09:56 tomato Allergy Rash/Hives Verified 06/24/21 09:56 codeine AdvReac Unknown Verified 06/24/21 09:56 Physical Exam Vitals: Vital Signs Temp Pulse Resp BP Pulse Ox 06/24/21 11:00 98.2 F 06/24/21 10:59 71 16 107/71 100 06/24/21 09:42 63 16 106/78 99 06/24/21 08:09 98.3 F 82 18 99/60 96 Intake and Output 06/23/21 06/24/21 06/24/21 22:59 06:59 14:59 Other: Weight 108.862 kg Results 06/24/21 08:34 06/24/21 08:34 Cardiac Enzymes 06/24/21 06/24/21 06/24/21 Range/Units 08:34 08:34 11:13 AST 30 (14-36) U/L Troponin I <0.012 <0.012 (0.000-0.034) ng/mL Coagulation 06/24/21 Range/Units 08:34 PT 9.8 (9.0-12.0) sec APTT 23.3 (22.0-30.0) sec CBC 06/24/21 Range/Units 08:34 WBC 9.1 (3.8-10.6) k/uL RBC 4.68 (3.80-5.40) m/uL Hgb 13.9 (11.4-16.0) gm/dL Hct 41.5 (34.0-46.0) % Plt Count 308 (150-450) k/uL Comprehensive Metabolic Panel 06/24/21 Range/Units 08:34 Sodium 140 (137-145) mmol/L Potassium 4.0 (3.5-5.1) mmol/L Chloride 108 H (98-107) mmol/L Carbon Dioxide 24 (22-30) mmol/L BUN 11 (7-17) mg/dL Creatinine 0.52 (0.52-1.04) mg/dL Glucose 111 H (74-99) mg/dL Calcium 9.5 (8.4-10.2) mg/dL AST 30 (14-36) U/L ALT 28 (4-34) U/L Alkaline Phosphatase 121 (38-126) U/L Total Protein 7.1 (6.3-8.2) g/dL Albumin 3.9 (3.5-5.0) g/dL Current Medications Generic Name Dose Route Start Last Admin Trade Name Freq PRN Reason Stop Dose Admin Aspirin 325 mg 06/25/21 09:00 Aspirin 325 Mg Tab PO DAILY VILLA Nitroglycerin 0.4 mg 06/24/21 09:47 Nitroglycerin Sl Tabs 0.4 Mg Tab SUBLINGUAL Q5M PRN Chest Pain Intake and Output 06/23/21 06/24/21 06/24/21 22:59 06:59 14:59 Other: Weight 108.862 kg Patient Weight 06/25/21 06:59 Weight 108.862 kg 06/24/21 08:34 06/24/21 08:34
--- NOTE | 2021-06-25 13:21 | HP ---
HISTORY AND PHYSICAL Admitted with atypical chest pain but mainly pounding headaches into her chest. I will get a neurology consult for this, which is pending. Possibly hypertension acceleration. Cardiology is going to see her. She came to the EMS, was given 2 nitroglycerin that helped improve her chest pain for which Cardiology has been anticipated. She has chronic dizziness, lightheadedness and pounding headaches. She has chronic back pain, chronic radiculopathy, pain, and possibly bipolar and mood disorder secondary to intracranial bleed in the past with bilateral weakness and old strokes with mild weakness. 14-point review of systems otherwise was negative. She came to the EM mass with chest pain, epigastric area into the back. Vital signs reviewed. Troponins have been ordered, which were negative. Improved with nitroglycerin. Possible rule out coronary syndrome. EKG shows ventricular rate 72. Regular rate and rhythm. Home medicines were reviewed. ALLERGIES: CAT DANDER, TOMATOES, CODEINE. REVIEW OF SYSTEMS: Fourteen-point review of systems negative except for mentioned above. PAST MEDICAL HISTORY: Prior history of CVA, TIA, memory impairment, hypertension, COPD, chest pain, neurologic disorder, intracranial bleed with weakness, prior stroke with weakness. PAST SURGICAL HISTORY: , tonsillectomy, tubal ligation. Brain cranial bleed surgery in the past. PAST FAMILY HISTORY: Mother with cancer. Father cancer. PHYSICAL EXAMINATION: Temperature 98.3, pulse 80 to 83, respiratory 16 to 18, blood pressure 90 to 100 over 60s to 70s. O2 96 to 99 on room air. CARDIOVASCULAR: S1, S2. ABDOMEN is soft, nontender. LUNGS are clear. She has over and over said she has headaches in front temporal area bilaterally. Neurology consult pending. Labs show normal, white count, hemoglobin, negative troponin, negative lipase. Liver enzymes are normal. ASSESSMENT: 1. Atypical chest pain, epigastric pain. Normal troponin. 2. Await for Cardiology and Neurology to see her. 3. PT/OT evaluate her. 4. Possible discharge home soon. MMODL / IJN: [id number] /
--- NOTE | 2021-06-25 18:38 | P.CNNES ---
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 Neurology is consulted for the headache. Patient is known to our neurology service and she had numerous workup and imaging imaging in our facility. Per the patient's she had a headache over the center of the head and it feels like a throbbing and she had on a Thursday and Thursday and she felt like she had some photophobia but denies any photophobia or nausea or vomiting. She said that was on and off. She said that she has a headache once a week and it last possibly half hour she denies any auras with the headache. She states that her sleep is not that well and is fluctuates. She denies of any current headaches right now. Per the nurse patient is not consistent. Per the patient's she stated that she has not followed up with a neurologist but continues to come to the hospital for further neurological workup. During the hospital stay the patient has got multiple doses of nitroglycerin sublingual. Sole the patient on medication consist of aspirin 81 mg daily, Plavix 75 mg daily, Lipitor 20 mg daily at bedtime, vitamin B12 1000 g daily, Lasix, Midrin, nitroglycerin, nitroglycerin, Adderall 10 mg 1 tablet twice a day She was last seen by Dr. Kimball on 01/31/2021 and he noted that the patient has no evidence of acute CVA on MRI. He felt possible conversion disorder. And that he recommended for the patient to be on dual antiplatelet since she does not have any acute stroke and to be either on aspirin or Plavix and to defer the decision to the primary team. And it she had a normal CT angiography of the head and neck on 01/15/2021 and did not feel it needs to be repeated. Patient had the rest of the stroke workup which again was negative. Some of the workup in the hospital consisted of: Initial vital signs his blood pressure of 99/60, heart rate of 82, respiratory of 18, temperature of 98.3 Fahrenheit oral pulse ox of 96% room air. Patient has been afebrile since our facility. Patient last blood pressure is 112/69. CBC with differential is unremarkable. Chemistry panel is unremarkable. Calcium is 9.5, magnesium is 2.2, at AST is 30 ALT of 28 Frias virus patient was not detected Review of Systems Review of system: The 12 point system was reviewed and apparent positive and negative per HPI. Past Medical History Past Medical History: Chest Pain / Angina, COPD, CVA/TIA, Hyperlipidemia, Memory Impairment, Neurologic Disorder Additional Past Medical History / Comment(s): Pt recently admitted to [facility] on 12/31/20 with back pain. Other hx: Pt has history of brain injury following fall down flight of stairs in 2010 and was comatose for 3 months, then when she regained consciousness she had a CVA with R sided pa ralysis/parasthesia/decreased vision R eye/decreased hearing R ear/loss of sensation r inside of mouth-takes care with what food she eats/no longer has feelings of hunger/cannot taste or smell, pt denies ever having a seizure, hypothyroid, occasional pedal edema, occasional headaches, chronic back pain, cervical occipital neuritis, ataxia, vertigo. History of Any Multi-Drug Resistant Organisms: None Reported Past Surgical History: Section, Tonsillectomy, Tubal Ligation Additional Past Surgical History / Comment(s): 01/02/21 lumbar puncture, past trach/peg tube, pt thinks some kind of brain/skull surgery while comatose in 2010 at [facility]. Past Anesthesia/Blood Transfusion Reactions: No Reported Reaction Past Psychological History: Anxiety Smoking Status: Former smoker Past Alcohol Use History: None Reported Past Drug Use History: None Reported - Past Family History Mother Family Medical History: Cancer Additional Family Medical History / Comment(s): Mother of cancer, pt does not know what type. Father Family Medical History: Cancer Additional Family Medical History / Comment(s): Father is alive and has had 3 different types of cancer but survived them all. Medications and Allergies Home Medications Medication Instructions Recorded Confirmed Type Aspirin EC [Ecotrin Low Dose] 81 mg PO DAILY 07/16/20 06/24/21 History Vitamin B Complex 1 cap PO DAILY 07/16/20 06/24/21 History Atorvastatin Calcium [Lipitor] 20 mg PO HS 10/13/20 06/24/21 History Nitroglycerin Sl Tabs [Nitrostat] 0.4 mg SL Q5M PRN 12/04/20 06/24/21 History Sennosides [Senokot] 8.6 mg PO BID 30 Days #60 tab 12/08/20 06/24/21 Rx Clopidogrel [Plavix] 75 mg PO DAILY tab 02/01/21 06/24/21 Rx Cyanocobalamin (Vitamin B-12) 1,000 mcg PO DAILY 02/11/21 06/24/21 History [Vitamin B-12] Fluticasone Propionate [Flonase 1 spray EA NOSTRIL DAILY 02/11/21 06/24/21 History Allergy Relief] Midodrine [ProAmatine] 5 mg PO TID 02/11/21 06/24/21 History Cetirizine HCl [Zyrtec] 10 mg PO DAILY 06/24/21 06/24/21 History Dextroamphetamine/Amphetamine 10 mg PO BID 06/24/21 06/24/21 History [Adderall] Fluticasone/Umeclidin/Vilanter 1 puff INHALATION RT-DAILY 06/24/21 06/24/21 History [Trelegy Ellipta 200-62.5-25] Furosemide [Lasix] 20 mg PO DAILY 06/24/21 06/24/21 History Potassium Chloride ER [K-Dur 10] 10 meq PO DAILY 06/24/21 06/24/21 History Allergies Allergy/AdvReac Type Severity Reaction Status Date / Time cat dander Allergy Rash/Hives Verified 06/24/21 09:56 tomato Allergy Rash/Hives Verified 06/24/21 09:56 codeine AdvReac Unknown Verified 06/24/21 09:56 Physical Examination - Vital Signs Vital Signs: Vital Signs Temp Pulse Pulse Resp BP Pulse Ox 06/25/21 15:47 73 16 06/25/21 15:33 72 16 06/25/21 15:00 97.4 F L 61 18 103/63 95 06/25/21 08:47 97 06/25/21 07:00 98.1 F 59 L 18 96/68 96 06/25/21 02:00 66 06/25/21 01:45 98.1 F 66 17 101/66 97 06/24/21 20:00 98.0 F 66 17 110/70 98 Intake and Output 06/25/21 06/25/21 06/25/21 06:59 14:59 22:59 Intake Total 120 Balance 120 Intake: Oral 120 Other: # Voids 2 1 GENERAL: The patient is lying in bed and is not in acute distress. CHEST: The heart rate is regular rate rhythm. No murmurs to auscultation. No carotid bruit bilaterally. LUNG: Clear to auscultation bilaterally no wheezing noted throughout. Not labored breathing. ABDOMEN/GI: Bowel sounds present in all 4 quadrants. No tenderness to palpation throughout. NEUROLOGICAL: Higher mental function: The patient is awake, alert, oriented to self, place and time. Patient is following commands. No aphasia and no neglect. Cranial nerves: The pupils are round, equal and reactive to light and accommodation. Visual newman are full to confrontation throughout. Extraocular movement is intact no nystagmus is noted. Facial sensation is normal to touch throughout. The facial strength is normal throughout. Hearing is normal bilaterally to hand rub. Tongue is midline and moved [id number] without any difficulty. No dysarthria is noted. Shoulder shrug is normal bilaterally. Motor: Gait is deferred. The strength is 4+ over the right upper extremity while right lower is 3-4. Otherwise left 5 over 5 throughout. Normal bulk. Cerebellum: Normal finger to nose bilaterally. Sensation: Sensation is decreased over the right side. Reflexes (right/left): 1+ throughout. Plantars is upgoing over the right and downgoing over the left. Results - Laboratory Findings CBC and BMP: 06/24/21 08:34 06/24/21 08:34 Abnormal Lab Findings: Abnormal Labs 06/24/21 08:34 Chloride 108 H Glucose 111 H Assessment and Plan Assessment: Acute on Chronic cephalia: Currently headaches resolved. Possible conversion disorder (per Dr. Kimball on 01/31/2021) and had multiple neurological complaints and imaging in our facility and last MRI was on 2020 and was negative for any acute stroke. Patient does not follow-up with neurologist as outpatient. Atypical chest pain History of old left temporal stroke in 2010 with residual right-sided weakness Chronic vertigo History of vitamin B12 deficiency Chronic back pain with steroid injection Chronic nicotine dependence Plan: * I will start the patient on Melatonin 5mg qhs which hopefully will help with headaches and help with sleep. No imaging is needed and patient is in agreement since had multiple imaging in our facility and last MRI Brain was on 01/2021 and negative for stroke. * She was notified that she needs to follow up with a neurologist regarding further management of her headaches and neurological issues and this way he avoids her come to the hospital unless it's really needed. * From a neurological standpoint the patient does not need to be on dual antiplatelets as the Dr. Kimball mentioned in 01/2021 (MRI Brain is negative for storke). Recommend for the patient to be either on aspirin or Plavix. Continue Lipitor 20 mg daily at bedtime for secondary stroke prophylaxis * Continue vitamin B12 1000 g daily * Cardiology is on board * We'll defer the rest of the medical management to the primary team. * Upon discharge the patient needs to follow-up with a neurologist in outpatient with 1-2 weeks (Recommend following-up with Dr. Glover's office). There is no further neurological work-up. Patient is clear for discharge. Nomi Rea MD Neuro-Hospitalist Time with Patient: Greater than 30
[2021-06-25] MEDS: ATORVASTATIN 20 MG TAB PO SCH (20:19)
[2021-06-25 20:33] LABS: Chol/HDL Ratio 4.24 Ratio; HDL Cholesterol 31.6 mg/dL (40.00-60.00); LDL Cholesterol,Calculated 76.4 mg/dL (0.0-131.0)
[2021-06-25] MEDS ORDERED: MELATONIN 5 MG TABLET PO SCH (21:00)
--- NOTE | 2021-06-26 01:07 | PN ---
PROGRESS NOTE 58-year-old white female seen by Neurology and Cardiology all cleared for discharge. Cardiovascular S1-S2. Lungs clear. GI soft. Hematology negative Homans. Psych: Fair mood and affect. ASSESSMENT: 1. Musculoskeletal type chest pain, reproducible. 2. Costochondritis. 3. Ataxia. 4. Epigastric pain. 5. Gastroesophageal reflux disease. 6. Migraines headaches secondary to possible migraines versus visual change, headaches. 7. Orthostatic hypotension. 8. Dyslipidemia. PROGNOSIS: Guarded. She is cleared for discharge by Neurology. Cardiology. Sent home in the morning. MMODL / IJN: [id number] /
[2021-06-26 08:01] VITALS: BP 111/73; RESP 16; TEMP 98.1
[2021-06-26] MEDS: IPRATROPIUM 0.5 MG/2.5 ML NEBU INHALATION SCH (08:03)
[2021-06-26] MEDS: ACETAMINOPHEN TAB 325 MG TAB PO PRN (08:03)
[2021-06-26] MEDS: SYMBICORT 80-4.5 MCG INHALER INHALATION SCH ×2 (08:03→11:17)
[2021-06-26] MEDS: CYANOCOBALAMIN 500 MCG TAB PO SCH (08:03)
[2021-06-26] MEDS: MIDODRINE 5 MG TAB PO SCH ×2 (08:03→08:04)
[2021-06-26] MEDS: ASPIRIN 81 MG PO SCH (08:04)
[2021-06-26] MEDS: FLUTICASONE 50MCG/SPRAY NASAL 16GM EA NOSTRIL SCH (08:04)
[2021-06-26] MEDS: FUROSEMIDE 20 MG TAB PO SCH (08:04)
[2021-06-26] MEDS: LORATADINE 10 MG TAB PO SCH (08:04)
[2021-06-26] MEDS: CLOPIDOGREL 75 MG TAB PO SCH (08:04)
[2021-06-26] MEDS: PANTOPRAZOLE 40 MG TABLET PO SCH (08:04)
[2021-06-26] MEDS: NON FORMULARY DRUG (Dextroamphetamine/Amphetamine [Adderall] 10 MG Tablet) PO SCH (08:05)
[2021-06-26 08:07] VITALS: PULSE 60
== END 2021-06-26 11:33 ==
LOC: EC 08:07 → 6NMEDSUR 09:51
PROVIDERS: ADMIT Family Medicine; ATTEND Family Medicine
DX: R07.89 Other chest pain (principal); R42 Dizziness and giddiness; R51.9 Headache, unspecified; R10.13 Epigastric pain; G89.29 Other chronic pain; M54.5 Low back pain; M54.10 Radiculopathy, site unspecified; I69.359 Hemiplegia and hemiparesis following cerebral infarction affecting unspecified side; R41.3 Other amnesia; I10 Essential (primary) hypertension; J44.9 Chronic obstructive pulmonary disease, unspecified; R29.90 Unspecified symptoms and signs involving the nervous system; M94.0 Chondrocostal junction syndrome [Tietze]; K21.9 Gastro-esophageal reflux disease without esophagitis; I95.1 Orthostatic hypotension; E78.5 Hyperlipidemia, unspecified; I69.351 Hemiplegia and hemiparesis following cerebral infarction affecting right dominant side; M47.816 Spondylosis without myelopathy or radiculopathy, lumbar region; M46.1 Sacroiliitis, not elsewhere classified; E53.8 Deficiency of other specified B group vitamins; F17.210 Nicotine dependence, cigarettes, uncomplicated; E66.9 Obesity, unspecified; Z68.33 Body mass index [BMI] 33.0-33.9, adult; F41.9 Anxiety disorder, unspecified; E03.9 Hypothyroidism, unspecified; H54.61 Unqualified visual loss, right eye, normal vision left eye; H91.91 Unspecified hearing loss, right ear; Z20.822 Contact with and (suspected) exposure to COVID-19; Z87.820 Personal history of traumatic brain injury; Z86.16 Personal history of COVID-19; Z87.01 Personal history of pneumonia (recurrent); Z79.899 Other long term (current) drug therapy; Z79.82 Long term (current) use of aspirin; Z79.02 Long term (current) use of antithrombotics/antiplatelets; Z91.018 Allergy to other foods; J30.81 Allergic rhinitis due to animal (cat) (dog) hair and dander; Z88.5 Allergy status to narcotic agent; Z80.9 Family history of malignant neoplasm, unspecified
CPT/HCPCS: 96360; 99285; 36415; 94640 ×2; 94760; 93005; 97162; 92610; 80061; 80053; 83690; 83735; 84484; 85025; 85610; 85730; 87635; 71046; G0378 ×3

== ENCOUNTER 2021-06-29 14:00 | Emergency (ER) | payer MEDICARE, OTHER ==
[2021-06-29 14:15] VITALS: BP 111/62; PULSE 71; RESP 16; TEMP 98.7
[2021-06-29] MEDS ORDERED: ASPIRIN 81 MG PO STA (15:33)
[2021-06-29 15:34] LABS: Basophils # (A) 0.1 k/uL (0-0.2); Basophils % (A) 1 %; Eosinophils # (A) 0.1 k/uL (0-0.7); Eosinophils % (A) 1 %; HCT 33.8 % (34.0-46.0); Lymphocytes # (A) 2.4 k/uL (1.0-4.8); Lymphocytes % (A) 27 %; MCH 29.7 pg (25.0-35.0); MCHC 32.6 g/dL (31.0-37.0); Monocytes # (A) 0.4 k/uL (0-1.0); Monocytes % (A) 4 %; Neutrophils # (A) 5.7 k/uL (1.3-7.7); Neutrophils % (A) 65 %; Platelet Count 219 k/uL (150-450); RBC 3.72 m/uL (3.80-5.40); RDW 14.1 % (11.5-15.5); WBC 8.7 k/uL (3.8-10.6)
--- NOTE | 2021-06-29 15:43 | ED ---
Abdominal Pain HPI - General Chief Complaint: Abdominal Pain Stated Complaint: chest pain Time Seen by Provider: 06/29/21 14:00 Source: patient, EMS, RN notes reviewed, old records reviewed Mode of arrival: EMS Limitations: no limitations - History of Present Illness Initial Comments: %1 yo Female presents via EMS with c/o squeezing anterior chest pain and upper abdominal pain which started around 5 am today. The pain is 9/10 inseverity and increases with movement similar to the most recent admit. She also c/o some dizziness but no palpitations fever, chills, sweats, nausea or other symptoms. She does state the pain is also in her back. MD Complaint: abdominal pain, other - Related Data Home Medications Medication Instructions Recorded Confirmed Aspirin EC [Ecotrin Low Dose] 81 mg PO DAILY 07/16/20 06/24/21 Vitamin B Complex 1 cap PO DAILY 07/16/20 06/24/21 Atorvastatin Calcium [Lipitor] 20 mg PO HS 10/13/20 06/24/21 Nitroglycerin Sl Tabs [Nitrostat] 0.4 mg SL Q5M PRN 12/04/20 06/24/21 Cyanocobalamin (Vitamin B-12) 1,000 mcg PO DAILY 02/11/21 06/24/21 [Vitamin B-12] Fluticasone Propionate [Flonase 1 spray EA NOSTRIL DAILY 02/11/21 06/24/21 Allergy Relief] Midodrine [ProAmatine] 5 mg PO TID 02/11/21 06/24/21 Cetirizine HCl [Zyrtec] 10 mg PO DAILY 06/24/21 06/24/21 Dextroamphetamine/Amphetamine 10 mg PO BID 06/24/21 06/24/21 [Adderall] Fluticasone/Umeclidin/Vilanter 1 puff INHALATION RT-DAILY 06/24/21 06/24/21 [Trelegy Ellipta 200-62.5-25] Furosemide [Lasix] 20 mg PO DAILY 06/24/21 06/24/21 Potassium Chloride ER [K-Dur 10] 10 meq PO DAILY 06/24/21 06/24/21 Previous Rx's Medication Instructions Recorded Sennosides [Senokot] 8.6 mg PO BID 30 Days #60 tab 12/08/20 Clopidogrel [Plavix] 75 mg PO DAILY tab 02/01/21 Acetaminophen Tab [Tylenol] 650 mg PO Q6HR PRN tab 06/25/21 Ibuprofen [Motrin] 600 mg PO TID PRN tab 06/25/21 Ipratropium Nebulized [Atrovent 0.5 mg INHALATION RT-QID 30 Days 06/25/21 Nebulized 0.2 MG/ML] #120 ml Melatonin 5 mg PO HS tablet 06/25/21 Pantoprazole [Protonix] 40 mg PO AC-BID 30 Days #60 tab 06/25/21 Calcium Carbonate/Vitamin D3 1 each PO DAILY #7 tablet 06/29/21 [Os-Eric 500-Vit D3 5 Mcg (200 Iu)] Ibuprofen 800 mg PO Q6HR PRN #20 tablet 06/29/21 Potassium Chloride ER [K-Dur 20] 20 meq PO DAILY #7 tab 06/29/21 Allergies Allergy/AdvReac Type Severity Reaction Status Date / Time cat dander Allergy Rash/Hives Verified 06/29/21 17:08 tomato Allergy Rash/Hives Verified 06/29/21 17:08 codeine AdvReac Unknown Verified 06/29/21 17:08 Review of Systems ROS Statement: Those systems with pertinent positive or pertinent negative responses have been documented in the HPI. ROS Other: All systems not noted in ROS Statement are negative. Past Medical History Past Medical History: Chest Pain / Angina, COPD, CVA/TIA, Hyperlipidemia, Memory Impairment, Neurologic Disorder Additional Past Medical History / Comment(s): Pt recently admitted to [facility] on 12/31/20 with back pain. 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 History of Any Multi-Drug Resistant Organisms: None Reported Past Surgical History: Section, Tonsillectomy, Tubal Ligation Additional Past Surgical History / Comment(s): 01/02/21 lumbar puncture, past trach/peg tube, pt thinks some kind of brain/skull surgery while comatose in 2010 at [facility]. Past Anesthesia/Blood Transfusion Reactions: No Reported Reaction Past Psychological History: Anxiety Smoking Status: Former smoker Past Alcohol Use History: None Reported Past Drug Use History: None Reported - Past Family History Mother Family Medical History: Cancer Additional Family Medical History / Comment(s): Mother of cancer, pt does not know what type. Father Family Medical History: Cancer Additional Family Medical History / Comment(s): Father is alive and has had 3 different types of cancer but survived them all. General Exam - General Exam Comments Initial Comments: Well developed well nourished A&O x 3 NAD Limitations: no limitations General appearance: alert, anxious Head exam: Present: atraumatic, normocephalic, normal inspection Eye exam: Present: normal appearance, PERRL, EOMI. Absent: scleral icterus, conjunctival injection, periorbital swelling ENT exam: Present: normal exam, mucous membranes moist Neck exam: Present: normal inspection, full ROM, other (No stridor JVD or Bruits). Absent: tenderness, meningismus, lymphadenopathy Respiratory exam: Present: normal lung sounds bilaterally, chest wall tenderness (Reproducible pain to palpation along the costo chondral and sternal margins). Absent: respiratory distress, wheezes, rales, rhonchi, stridor Cardiovascular Exam: Present: regular rate, normal rhythm, normal heart sounds. Absent: systolic murmur, diastolic murmur, rubs, gallop, clicks GI/Abdominal exam: Present: soft, normal bowel sounds. Absent: distended, tende rness (Mild epigastric tenderness to palpation), guarding, rebound, rigid, bruit, pulsatile mass Extremities exam: Present: normal inspection, full ROM, normal capillary refill. Absent: tenderness, pedal edema, joint swelling, calf tenderness Back exam: Present: normal inspection Neurological exam: Present: alert, oriented X3, CN II-XII intact Psychiatric exam: Present: normal affect, anxious Skin exam: Present: warm, dry, intact, normal color. Absent: rash Course Vital Signs 06/29/21 06/29/21 14:13 14:16 Temperature 98.7 F Pulse Rate 71 Pulse Rate [ 71 Pulse Oximetery ] Respiratory 16 Rate Blood Pressure 111/62 O2 Sat by Pulse 96 Oximetry Medical Decision Making - Medical Decision Making I did discuss Pfizer the patient the presentation is consistent with costochondritis also hypokalemia hypo-calcium oral supplements are recommended - Lab Data Result diagrams: 06/29/21 15:30 06/29/21 15:30 Lab Results 06/29/21 06/29/21 06/29/21 Range/Units 15:30 15:30 15:30 WBC 8.7 (3.8-10.6) k/uL RBC 3.72 L (3.80-5.40) m/uL Hgb 11.0 L (11.4-16.0) gm/dL Hct 33.8 L (34.0-46.0) % MCV 91.0 (80.0-100.0) fL MCH 29.7 (25.0-35.0) pg MCHC 32.6 (31.0-37.0) g/dL RDW 14.1 (11.5-15.5) % Plt Count 219 (150-450) k/uL MPV 8.0 Neutrophils % 65 % Lymphocytes % 27 % Monocytes % 4 % Eosinophils % 1 % Basophils % 1 % Neutrophils # 5.7 (1.3-7.7) k/uL Lymphocytes # 2.4 (1.0-4.8) k/uL Monocytes # 0.4 (0-1.0) k/uL Eosinophils # 0.1 (0-0.7) k/uL Basophils # 0.1 (0-0.2) k/uL Sodium 140 (137-145) mmol/L Potassium 3.2 L (3.5-5.1) mmol/L Chloride 111 H (98-107) mmol/L Carbon Dioxide 22 (22-30) mmol/L Anion Gap 7 mmol/L BUN 9 (7-17) mg/dL Creatinine 0.48 L (0.52-1.04) mg/dL Est GFR (CKD-EPI)AfAm >90 (>60 ml/min/1.73 sqM) Est GFR (CKD-EPI)NonAf >90 (>60 ml/min/1.73 sqM) Glucose 92 (74-99) mg/dL Calcium 7.7 L (8.4-10.2) mg/dL Magnesium 1.8 (1.6-2.3) mg/dL Total Bilirubin 0.2 (0.2-1.3) mg/dL AST 19 (14-36) U/L ALT 18 (4-34) U/L Alkaline Phosphatase 87 (38-126) U/L Creatine Kinase 37 (30-135) U/L Troponin I (0.000-0.034) ng/mL Total Protein 5.7 L (6.3-8.2) g/dL Albumin 3.1 L (3.5-5.0) g/dL Lipase 31 (23-300) U/L 06/29/21 Range/Units 15:53 WBC (3.8-10.6) k/uL RBC (3.80-5.40) m/uL Hgb (11.4-16.0) gm/dL Hct (34.0-46.0) % MCV (80.0-100.0) fL MCH (25.0-35.0) pg MCHC (31.0-37.0) g/dL RDW (11.5-15.5) % Plt Count (150-450) k/uL MPV Neutrophils % % Lymphocytes % % Monocytes % % Eosinophils % % Basophils % % Neutrophils # (1.3-7.7) k/uL Lymphocytes # (1.0-4.8) k/uL Monocytes # (0-1.0) k/uL Eosinophils # (0-0.7) k/uL Basophils # (0-0.2) k/uL Sodium (137-145) mmol/L Potassium (3.5-5.1) mmol/L Chloride (98-107) mmol/L Carbon Dioxide (22-30) mmol/L Anion Gap mmol/L BUN (7-17) mg/dL Creatinine (0.52-1.04) mg/dL Est GFR (CKD-EPI)AfAm (>60 ml/min/1.73 sqM) Est GFR (CKD-EPI)NonAf (>60 ml/min/1.73 sqM) Glucose (74-99) mg/dL Calcium (8.4-10.2) mg/dL Magnesium (1.6-2.3) mg/dL Total Bilirubin (0.2-1.3) mg/dL AST (14-36) U/L ALT (4-34) U/L Alkaline Phosphatase (38-126) U/L Creatine Kinase (30-135) U/L Troponin I <0.012 (0.000-0.034) ng/mL Total Protein (6.3-8.2) g/dL Albumin (3.5-5.0) g/dL Lipase (23-300) U/L - EKG Data -: EKG Interpreted by Me EKG shows normal: sinus rhythm, axis, intervals, QRS complexes, ST-T waves Rate: normal EKG Comments: Normal sinus rhythm 60. Interval 1:30 QRS duration 84 QT since QTC 412/412 this is normal. EKG is compared to one dated 06/25/21 - Radiology Data Radiology results: report reviewed (Imaging reviewed no acute findings.), image reviewed Disposition Clinical Impression: Costochondritis, acute, Hypokalemia, Hypocalcemia, Chest wall pain Disposition: HOME SELF-CARE Condition: Good Instructions (If sedation given, give patient instructions): Costochondritis (ED), Hypokalemia (ED), Hypocalcemia (ED), Chest Wall Pain (ED) Prescriptions: Ibuprofen 800 mg PO Q6HR PRN #20 tablet PRN Reason: Pain Potassium Chloride ER [K-Dur 20] 20 meq PO DAILY #7 tab Calcium Carbonate/Vitamin D3 [Os-Eric 500-Vit D3 5 Mcg (200 Iu)] 1 each PO DAILY #7 tablet Is patient prescribed a controlled substance at d/c from ED?: No Referrals: Chris Bocanegra MD [Primary Care Provider] - 1-2 days
[2021-06-29 15:48] LABS: ALT 18 U/L (4-34); AST 19 U/L (14-36); African American GFR (CKD) >90 (>60 ml/min/1.73 sqM); Albumin 3.1 g/dL (3.5-5.0); Alkaline Phosphatase 87 U/L (38-126); Anion Gap 7 mmol/L; Blood Urea Nitrogen 9 mg/dL (7-17); Calcium 7.7 mg/dL (8.4-10.2); Carbon Dioxide 22 mmol/L (22-30); Chloride 111 mmol/L (98-107); Glucose 92 mg/dL (74-99); Lipase 31 U/L (23-300); Non-African American GFR(CKD) >90 (>60 ml/min/1.73 sqM); Potassium 3.2 mmol/L (3.5-5.1); Sodium 140 mmol/L (137-145); Total Bilirubin 0.2 mg/dL (0.2-1.3); Total Protein 5.7 g/dL (6.3-8.2)
[2021-06-29 16:31] LABS: Magnesium 1.8 mg/dL (1.6-2.3)
--- NOTE | 2021-06-29 16:35 | XR ---
EXAMINATION TYPE: XR KUB DATE OF EXAM: 06/29/2021 COMPARISON: 04/06/2020 HISTORY: Constipation TECHNIQUE: 2 views FINDINGS: There is inferior vena cava filter. There are clips from cholecystectomy. Lung bases are cl ear. There are no pathologic calcifications over the kidneys. Bowel gas pattern is normal. Fecal lena gage is normal. IMPRESSION: Nonacute abdomen. No adverse change.
--- NOTE | 2021-06-29 16:37 | XR ---
EXAMINATION TYPE: XR chest 2V DATE OF EXAM: 06/29/2021 COMPARISON: 06/24/2021 HISTORY: Chest pain TECHNIQUE: 2 views FINDINGS: Heart and mediastinum are normal. Lungs are clear. Diaphragm is normal. Bony thorax is inta ct. Pulmonary vascularity is normal. IMPRESSION: Normal chest. No change.
[2021-06-29] MEDS ORDERED: POTASSIUM CHLORIDE ER 20 MEQ TAB.ER PO STA (16:45)
[2021-06-29] MEDS ORDERED: CALCIUM CARB-VIT D 500 MG-5 MCG TAB PO STA (16:45)
[2021-06-29] MEDS ORDERED: KETOROLAC 15 MG/ML 1 ML VIAL IVP STA (17:13)
== END 2021-06-29 18:38 | disposition home or self-care (01) ==
LOC: EC 14:00
DX: M94.0 Chondrocostal junction syndrome [Tietze] (principal); E87.6 Hypokalemia; E83.51 Hypocalcemia; J44.9 Chronic obstructive pulmonary disease, unspecified; E78.5 Hyperlipidemia, unspecified; F41.9 Anxiety disorder, unspecified; Z79.82 Long term (current) use of aspirin; Z79.02 Long term (current) use of antithrombotics/antiplatelets; Z88.5 Allergy status to narcotic agent; Z86.73 Personal history of transient ischemic attack (TIA), and cerebral infarction without residual deficits; Z98.51 Tubal ligation status; Z87.891 Personal history of nicotine dependence; Z79.899 Other long term (current) drug therapy
CPT/HCPCS: 99285; 96374; 36415; 93005; 80053; 82550; 83690; 83735; 84484; 85025; 71046; 74018; J1885

== ENCOUNTER 2021-07-12 08:56 | Emergency (ER) | payer MEDICARE, OTHER ==
[2021-07-12 09:03] VITALS: RESP 18; TEMP 98.1
--- NOTE | 2021-07-12 09:29 | ED ---
Back Pain HPI - General Chief Complaint: Back Pain/Injury Stated Complaint: Back Pain Time Seen by Provider: 07/12/21 09:19 Source: patient, EMS, RN notes reviewed - History of Present Illness Initial Comments: Patient is a 50-year-old female presenting to the ED for back pain. Patient states she is a 10 out of 10 pain with inadequate pain coverage current regimen of ibuprofen and Tylenol. Patient's [facility] transitional care nurse expresses that this is ongoing chronic condition with a recent admission to [facility] her labs were run and imaging was done with no abnormalities found. transitional care nurse expresses patient was seen by PCP in office yesterday, care plan was put in place for back pain with ibuprofen, Tylenol and epidural shots for back pain. - Related Data Home Medications Medication Instructions Recorded Confirmed Aspirin EC [Ecotrin Low Dose] 81 mg PO DAILY 07/16/20 06/24/21 Vitamin B Complex 1 cap PO DAILY 07/16/20 06/24/21 Atorvastatin Calcium [Lipitor] 20 mg PO HS 10/13/20 06/24/21 Nitroglycerin Sl Tabs [Nitrostat] 0.4 mg SL Q5M PRN 12/04/20 06/24/21 Cyanocobalamin (Vitamin B-12) 1,000 mcg PO DAILY 02/11/21 06/24/21 [Vitamin B-12] Fluticasone Propionate [Flonase 1 spray EA NOSTRIL DAILY 02/11/21 06/24/21 Allergy Relief] Midodrine [ProAmatine] 5 mg PO TID 02/11/21 06/24/21 Cetirizine HCl [Zyrtec] 10 mg PO DAILY 06/24/21 06/24/21 Dextroamphetamine/Amphetamine 10 mg PO BID 06/24/21 06/24/21 [Adderall] Fluticasone/Umeclidin/Vilanter 1 puff INHALATION RT-DAILY 06/24/21 06/24/21 [Trelegy Ellipta 200-62.5-25] Furosemide [Lasix] 20 mg PO DAILY 06/24/21 06/24/21 Potassium Chloride ER [K-Dur 10] 10 meq PO DAILY 06/24/21 06/24/21 Previous Rx's Medication Instructions Recorded Sennosides [Senokot] 8.6 mg PO BID 30 Days #60 tab 12/08/20 Clopidogrel [Plavix] 75 mg PO DAILY tab 02/01/21 Acetaminophen Tab [Tylenol] 650 mg PO Q6HR PRN tab 06/25/21 Ibuprofen [Motrin] 600 mg PO TID PRN tab 06/25/21 Ipratropium Nebulized [Atrovent 0.5 mg INHALATION RT-QID 30 Days 06/25/21 Nebulized 0.2 MG/ML] #120 ml Melatonin 5 mg PO HS tablet 06/25/21 Pantoprazole [Protonix] 40 mg PO AC-BID 30 Days #60 tab 06/25/21 Calcium Carbonate/Vitamin D3 1 each PO DAILY #7 tablet 06/29/21 [Os-Eric 500-Vit D3 5 Mcg (200 Iu)] Ibuprofen 800 mg PO Q6HR PRN #20 tablet 06/29/21 Potassium Chloride ER [K-Dur 20] 20 meq PO DAILY #7 tab 06/29/21 Allergies Allergy/AdvReac Type Severity Reaction Status Date / Time cat dander Allergy Rash/Hives Verified 06/29/21 17:08 tomato Allergy Rash/Hives Verified 06/29/21 17:08 codeine AdvReac Unknown Verified 06/29/21 17:08 Review of Systems ROS Statement: Those systems with pertinent positive or pertinent negative responses have been documented in the HPI. ROS Other: All systems not noted in ROS Statement are negative. Past Medical History Past Medical History: Chest Pain / Angina, COPD, CVA/TIA, Hyperlipidemia, Memory Impairment, Neurologic Disorder Additional Past Medical History / Comment(s): Pt recently admitted to [facility] on 12/31/20 with back pain. 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 History of Any Multi-Drug Resistant Organisms: None Reported Past Surgical History: Section, Tonsillectomy, Tubal Ligation Additional Past Surgical History / Comment(s): 01/02/21 lumbar puncture, past trach/peg tube, pt thinks some kind of brain/skull surgery while comatose in 2010 at [facility]. Past Anesthesia/Blood Transfusion Reactions: No Reported Reaction Past Psychological History: Anxiety Smoking Status: Former smoker Past Alcohol Use History: None Reported Past Drug Use History: None Reported - Past Family History Mother Family Medical History: Cancer Additional Family Medical History / Comment(s): Mother of cancer, pt does not know what type. Father Family Medical History: Cancer Additional Family Medical History / Comment(s): Father is alive and has had 3 different types of cancer but survived them all. General Exam Limitations: physical limitation (back pain) General appearance: alert, in distress Respiratory exam: Present: normal lung sounds bilaterally. Absent: respiratory distress, wheezes, rales, rhonchi, stridor Cardiovascular Exam: Present: regular rate, normal rhythm, normal heart sounds. Absent: systolic murmur, diastolic murmur, rubs, gallop, clicks Back exam: Present: tenderness (chronic), muscle spasm, paraspinal tenderness (chronic) Neurological exam: Present: other (reported normal patient baseline) Skin exam: Present: warm, dry, intact, normal color. Absent: rash Course Vital Signs 07/12/21 08:59 Temperature 98.1 F Pulse Rate 76 Respiratory 18 Rate Blood Pressure 123/76 O2 Sat by Pulse 97 Oximetry Medical Decision Making - Medical Decision Making 50-year-old presented for chronic ongoing issues. Patient is able to ambulate she has no red flag symptoms. She is only taking Tylenol Motrin we given pain relief and she has current care plan. Disposition Clinical Impression: Chronic back pain Disposition: HOME SELF-CARE Condition: Stable Instructions (If sedation given, give patient instructions): Acute Low Back P ain (ED) Additional Instructions: Please return to the Emergency Department if symptoms worsen or any other concerns. Is patient prescribed a controlled substance at d/c from ED?: No Referrals: Chris Bocanegra MD [Primary Care Provider] - 1-2 days Time of Disposition: 10:13
[2021-07-12] MEDS ORDERED: MORPHINE SULFATE 4 MG/ML SYRINGE IM STA (10:07)
[2021-07-12] MEDS ORDERED: traMADol 50 MG STARTER PACK 3 TAB BTL PO STA (10:10)
[2021-07-12 10:35] VITALS: BP 105/74; PULSE 70
== END 2021-07-12 10:50 | disposition home or self-care (01) ==
LOC: EEVIPCON 08:56 → EC 08:56
DX: M54.9 Dorsalgia, unspecified (principal); J44.9 Chronic obstructive pulmonary disease, unspecified; E78.5 Hyperlipidemia, unspecified; F41.9 Anxiety disorder, unspecified; Z87.891 Personal history of nicotine dependence; Z86.73 Personal history of transient ischemic attack (TIA), and cerebral infarction without residual deficits; Z79.82 Long term (current) use of aspirin
CPT/HCPCS: 99283; 96372; J2270

== ENCOUNTER 2021-07-24 12:36 | Emergency (ER) | payer MEDICARE, OTHER ==
[2021-07-24 13:25] VITALS: TEMP 98.6
[2021-07-24 16:28] VITALS: BP 127/95; PULSE 85; RESP 220
[2021-07-24] MEDS ORDERED: HYDROmorphone 1 MG/ML 1 ML SYRINGE IM STA (16:33)
[2021-07-24] MEDS ORDERED: ACET/COD 300 MG/30 MG STARTER PACK 6 TAB BTL PO STA (16:33)
--- NOTE | 2021-07-24 16:34 | ED ---
Back Pain HPI - General Chief Complaint: Back Pain/Injury Stated Complaint: Spine Pain, Chest pain Time Seen by Provider: 07/24/21 16:19 Source: patient, EMS, RN notes reviewed Limitations: no limitations - Related Data Home Medications Medication Instructions Recorded Confirmed Aspirin EC [Ecotrin Low Dose] 81 mg PO DAILY 07/16/20 06/24/21 Vitamin B Complex 1 cap PO DAILY 07/16/20 06/24/21 Atorvastatin Calcium [Lipitor] 20 mg PO HS 10/13/20 06/24/21 Nitroglycerin Sl Tabs [Nitrostat] 0.4 mg SL Q5M PRN 12/04/20 06/24/21 Cyanocobalamin (Vitamin B-12) 1,000 mcg PO DAILY 02/11/21 06/24/21 [Vitamin B-12] Fluticasone Propionate [Flonase 1 spray EA NOSTRIL DAILY 02/11/21 06/24/21 Allergy Relief] Midodrine [ProAmatine] 5 mg PO TID 02/11/21 06/24/21 Cetirizine HCl [Zyrtec] 10 mg PO DAILY 06/24/21 06/24/21 Dextroamphetamine/Amphetamine 10 mg PO BID 06/24/21 06/24/21 [Adderall] Fluticasone/Umeclidin/Vilanter 1 puff INHALATION RT-DAILY 06/24/21 06/24/21 [Trelegy Ellipta 200-62.5-25] Furosemide [Lasix] 20 mg PO DAILY 06/24/21 06/24/21 Potassium Chloride ER [K-Dur 10] 10 meq PO DAILY 06/24/21 06/24/21 Previous Rx's Medication Instructions Recorded Sennosides [Senokot] 8.6 mg PO BID 30 Days #60 tab 12/08/20 Clopidogrel [Plavix] 75 mg PO DAILY tab 02/01/21 Acetaminophen Tab [Tylenol] 650 mg PO Q6HR PRN tab 06/25/21 Ibuprofen [Motrin] 600 mg PO TID PRN tab 06/25/21 Ipratropium Nebulized [Atrovent 0.5 mg INHALATION RT-QID 30 Days 06/25/21 Nebulized 0.2 MG/ML] #120 ml Melatonin 5 mg PO HS tablet 06/25/21 Pantoprazole [Protonix] 40 mg PO AC-BID 30 Days #60 tab 06/25/21 Calcium Carbonate/Vitamin D3 1 each PO DAILY #7 tablet 06/29/21 [Os-Eric 500-Vit D3 5 Mcg (200 Iu)] Ibuprofen 800 mg PO Q6HR PRN #20 tablet 06/29/21 Potassium Chloride ER [K-Dur 20] 20 meq PO DAILY #7 tab 06/29/21 Allergies Allergy/AdvReac Type Severity Reaction Status Date / Time cat dander Allergy Rash/Hives Verified 07/24/21 13:25 tomato Allergy Rash/Hives Verified 07/24/21 13:25 codeine AdvReac Unknown Verified 07/24/21 13:25 Review of Systems ROS Statement: Those systems with pertinent positive or pertinent negative responses have been documented in the HPI. ROS Other: All systems not noted in ROS Statement are negative. Past Medical History Past Medical History: Chest Pain / Angina, COPD, CVA/TIA, Hyperlipidemia, Memory Impairment, Neurologic Disorder Additional Past Medical History / Comment(s): Pt recently admitted to [facility] on 12/31/20 with back pain. 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 History of Any Multi-Drug Resistant Organisms: None Reported Past Surgical History: Section, Tonsillectomy, Tubal Ligation Additional Past Surgical History / Comment(s): 01/02/21 lumbar puncture, past trach/peg tube, pt thinks some kind of brain/skull surgery while comatose in 2010 at [facility]. Past Anesthesia/Blood Transfusion Reactions: No Reported Reaction Past Psychological History: Anxiety Smoking Status: Former smoker Past Alcohol Use History: None Reported Past Drug Use History: None Reported - Past Family History Mother Family Medical History: Cancer Additional Family Medical History / Comment(s): Mother of cancer, pt does not know what type. Father Family Medical History: Cancer Additional Family Medical History / Comment(s): Father is alive and has had 3 different types of cancer but survived them all. General Exam Limitations: no limitations Course Vital Signs 07/24/21 07/24/21 13:23 16:23 Temperature 98.6 F Pulse Rate 81 85 Respiratory 20 220 H Rate Blood Pressure 129/88 127/95 O2 Sat by Pulse 96 96 Oximetry Disposition Clinical Impression: Chronic back pain Disposition: HOME SELF-CARE Condition: Stable Instructions (If sedation given, give patient instructions): Acute Low Back Pain (ED) Additional Instructions: Please return to the Emergency Department if symptoms worsen or any other concerns. Is patient prescribed a controlled substance at d/c from ED?: No Referrals: Chris Bocanegra MD [Primary Care Provider] - 1-2 days Time of Disposition: 16:34
== END 2021-07-24 17:26 | disposition home or self-care (01) ==
LOC: EC 12:36
DX: M54.5 Low back pain (principal); E78.5 Hyperlipidemia, unspecified; J44.9 Chronic obstructive pulmonary disease, unspecified; F41.9 Anxiety disorder, unspecified; Z79.82 Long term (current) use of aspirin; Z79.01 Long term (current) use of anticoagulants; Z88.5 Allergy status to narcotic agent; Z86.73 Personal history of transient ischemic attack (TIA), and cerebral infarction without residual deficits; Z90.89 Acquired absence of other organs; Z98.51 Tubal ligation status; Z87.891 Personal history of nicotine dependence
CPT/HCPCS: 99283; 96372; J1170

== ENCOUNTER 2021-07-25 20:56 | Emergency (ER) | payer MEDICARE, OTHER ==
--- NOTE | 2021-07-25 21:21 | ED ---
General Adult HPI - General Source: patient, EMS Mode of arrival: EMS Limitations: no limitations <ShavonneYesseniadmitriy Bowman - Last Filed: 07/25/21 22:14> <Andreas Hutson - Last Filed: 07/26/21 12:45> - General Chief complaint: Psychiatric Symptoms Stated complaint: Back Pain Time Seen by Provider: 07/25/21 21:11 - History of Present Illness Initial comments: Dictation was produced using [employer] dictation software. please excuse any grammatical, word or spelling errors. Chief Complaint: Patient is 50-year-old female she is well known to emergency department for multiple visitations for myriad of complaints. Her suicidal thoughts History of Present Illness: Patient is a 50-year-old female she has multiple comorbidities. This is patient's fourth visit this month. She initially came for acute on chronic back pain and chest pain. She was seen yesterday for the same complaint discharge. Upon my evaluation she did report that she has pain but she is here in emergency department for different reason. Patient states that she wants to end her life. She does not have a specific plan. She does not want to have her pain treated. She wants to "end her misery and end it all." The ROS documented in this emergency department record has been reviewed and confirmed by me. Those systems with pertinent positive or negative responses have been documented in the HPI. All other systems are other negative and/or noncontributory. PHYSICAL EXAM: General Impression: Alert and oriented x3, not in acute distress HEENT: Normocephalic atraumatic, extra-ocular movements intact, pupils equal and reactive to light bilaterally, mucous membranes moist. Cardiovascular: Heart regular rate and rhythm Chest: Able to complete full sentences, no retractions, no tachypnea, palpatory tenderness to her entire anterior chest Abdomen: abdomen soft, non-tender, non-distended, no organomegaly Musculoskeletal: Pulses present and equal in all extremities, no peripheral edema, palpatory tenderness to her Motor: no focal deficits noted Neurological: CN II-XII grossly intact, no focal motor or sensory deficits noted Skin: Intact with no visualized rashes Psych: Normal affect and mood ED course: 50-year-old female with past medical history of chronic pain presents with suicidal ideation. Vital signs upon arrival are within acceptable limits. Physical examination is benign. She has reproducible musculoskeletal pain to her anterior chest and back. Patient medically cleared. She will be evaluated by EPS.EPS contacted psychiatrist. Psychiatrist was to patient board in the emergency department and will be evaluated in the morning. Case discussed with patient's primary care physician he reports that she has been in and out of nursing homes been admitted to the hospital multiple times been evaluated by EPS multiple times. Patient is noncompliant and frequent comes to the emergency department does not feel patient benefit from inpatient admission for psychiatric consultation. (Efraín Marvin) - Related Data Home Medications Medication Instructions Recorded Confirmed Aspirin EC [Ecotrin Low Dose] 81 mg PO DAILY 07/16/20 07/25/21 Vitamin B Complex 1 cap PO DAILY 07/16/20 07/25/21 Atorvastatin Calcium [Lipitor] 20 mg PO HS 10/13/20 07/25/21 Nitroglycerin Sl Tabs [Nitrostat] 0.4 mg SL Q5M PRN 12/04/20 07/25/21 Cyanocobalamin (Vitamin B-12) 1,000 mcg PO DAILY 02/11/21 07/25/21 [Vitamin B-12] Fluticasone Propionate [Flonase 1 spray EA NOSTRIL DAILY 02/11/21 07/25/21 Allergy Relief] Midodrine [ProAmatine] 5 mg PO TID 02/11/21 07/25/21 Cetirizine HCl [Zyrtec] 10 mg PO DAILY 06/24/21 07/25/21 Dextroamphetamine/Amphetamine 10 mg PO BID 06/24/21 07/25/21 [Adderall] Fluticasone/Umeclidin/Vilanter 1 puff INHALATION RT-DAILY 06/24/21 07/25/21 [Trelegy Ellipta 200-62.5-25] Furosemide [Lasix] 20 mg PO DAILY 06/24/21 07/25/21 Calcium Carbonate/Vitamin D3 1 tab PO DAILY 07/25/21 07/25/21 [Os-Eric 500-Vit D3 5 Mcg (200 Iu)] HYDROcodone/APAP 10-325MG [[place] 1 tab PO BID PRN 07/25/21 07/25/21 10-325] QUEtiapine [SEROquel] 50 mg PO HS 07/25/21 07/25/21 busPIRone HCl [Buspar] 10 mg PO BID 07/25/21 07/25/21 Previous Rx's Medication Instructions Recorded Sennosides [Senokot] 8.6 mg PO BID 30 Days #60 tab 12/08/20 Clopidogrel [Plavix] 75 mg PO DAILY tab 02/01/21 Acetaminophen Tab [Tylenol] 650 mg PO Q6HR PRN tab 06/25/21 Ipratropium Nebulized [Atrovent 0.5 mg INHALATION RT-QID 30 Days 06/25/21 Nebulized 0.2 MG/ML] #120 ml Melatonin 5 mg PO HS tablet 06/25/21 Pantoprazole [Protonix] 40 mg PO AC-BID 30 Days #60 tab 06/25/21 Ibuprofen 800 mg PO Q6HR PRN #20 tablet 06/29/21 Potassium Chloride ER [K-Dur 20] 20 meq PO DAILY #7 tab 06/29/21 Allergies Allergy/AdvReac Type Severity Reaction Status Date / Time cat dander Allergy Rash/Hives Verified 07/25/21 22:05 tomato Allergy Rash/Hives Verified 07/25/21 22:05 codeine AdvReac Unknown Verified 07/25/21 22:05 Review of Systems ROS Other: All systems not noted in ROS Statement are negative. <Efraín Marvin - Last Filed: 07/25/21 22:14> ROS Other: All systems not noted in ROS Statement are negative. <Andreas Hutson - Last Filed: 07/26/21 12:45> ROS Statement: Those systems with pertinent positive or pertinent negative responses have been documented in the HPI. Past Medical History Past Medical History: Chest Pain / Angina, COPD, CVA/TIA, Hyperlipidemia, Memory Impairment, Neurologic Disorder Additional Past Medical History / Comment(s): Pt recently admitted to [facility] on 12/31/20 with back pain. 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 History of Any Multi-Drug Resistant Organisms: None Reported Past Surgical History: Section, Tonsillectomy, Tubal Ligation Additional Past Surgical History / Comment(s): 01/02/21 lumbar puncture, past trach/peg tube, pt thinks some kind of brain/skull surgery while comatose in 2010 at [facility]. Past Anesthesia/Blood Transfusion Reactions: No Reported Reaction Past Psychological History: Anxiety Smoking Status: Former smoker Past Alcohol Use History: None Reported Past Drug Use History: None Reported - Past Family History Mother Family Medical History: Cancer Additional Family Medical History / Comment(s): Mother of cancer, pt does not know what type. Father Family Medical History: Cancer Additional Family Medical History / Comment(s): Father is alive and has had 3 different types of cancer but survived them all. <Efraín Marvin - Last Filed: 07/25/21 22:14> General Exam Limitations: no limitations <Efraín Marvin - Last Filed: 07/25/21 22:14> Course Vital Signs 07/25/21 07/26/21 20:59 05:40 Temperature 98.6 F Pulse Rate 91 65 Respiratory 18 16 Rate Blood Pressure 141/81 102/52 O2 Sat by Pulse 96 98 Oximetry Medical Decision Making <Andreas Hutson - Last Filed: 07/26/21 12:45> - Medical Decision Making EPS evaluated the patient and determined the patient was safe to go home patient was in agreement patient was given a safety plan. (Andreas Hutson) Disposition <Efraín Marvin - Last Filed: 07/25/21 22:14> Is patient prescribed a controlled substance at d/c from ED?: No Time of Disposition: 12:45 <Andreas Hutson - Last Filed: 07/26/21 12:45> Clinical Impression: Depression Disposition: HOME SELF-CARE Referrals: Chris Bocanegra MD [Primary Care Provider] - 1-2 days
[2021-07-25] MEDS ORDERED: NITROGLYCERIN SL TABS 0.4 MG TAB SUBLINGUAL PRN (22:19)
[2021-07-25] MEDS ORDERED: IBUPROFEN 800 MG TAB PO PRN (22:19)
[2021-07-25] MEDS ORDERED: ACETAMINOPHEN TAB 325 MG TAB PO PRN (22:19)
[2021-07-25] MEDS ORDERED: HYDROcodone/APAP 10-325MG 1 EACH TAB PO PRN (22:30)
[2021-07-26] MEDS ORDERED: MIDODRINE 5 MG TAB PO SCH (07:30)
[2021-07-26] MEDS ORDERED: PANTOPRAZOLE 40 MG TABLET PO SCH (07:30)
[2021-07-26] MEDS ORDERED: SYMBICORT 80-4.5 MCG INHALER INHALATION SCH (08:00)
[2021-07-26] MEDS ORDERED: IPRATROPIUM 0.5 MG/2.5 ML NEBU INHALATION SCH (08:00)
[2021-07-26] MEDS ORDERED: FLUTICASONE 50MCG/SPRAY NASAL 16GM EA NOSTRIL SCH (09:00)
[2021-07-26] MEDS ORDERED: ASPIRIN 81 MG PO SCH (09:00)
[2021-07-26] MEDS ORDERED: LORATADINE 10 MG TAB PO SCH (09:00)
[2021-07-26] MEDS ORDERED: FOLIC ACID-VIT B COMPLEX-VIT C 1 CAP PO SCH (09:00)
[2021-07-26] MEDS ORDERED: CYANOCOBALAMIN 500 MCG TAB PO SCH (09:00)
[2021-07-26] MEDS ORDERED: POTASSIUM CHLORIDE ER 20 MEQ TAB.ER PO SCH (09:00)
[2021-07-26] MEDS ORDERED: FUROSEMIDE 20 MG TAB PO SCH (09:00)
[2021-07-26] MEDS ORDERED: busPIRone HCl 10 MG TAB PO SCH (09:00)
[2021-07-26] MEDS ORDERED: CALCIUM CARB-VIT D 500 MG-5 MCG TAB PO SCH (09:00)
[2021-07-26] MEDS ORDERED: SENNOSIDES 8.6 MG TAB PO SCH (09:00)
[2021-07-26] MEDS ORDERED: NON FORMULARY DRUG (Dextroamphetamine/Amphetamine [Adderall] 10 MG Tablet) PO SCH (09:00)
[2021-07-26 13:25] VITALS: BP 110/77; PULSE 72; RESP 20; TEMP 97.8
--- NOTE | 2021-07-26 14:07 | P.CN ---
Psychiatric Consult - . Consult date: 07/26/21 Consult:: 07/26/21 14:04 This provider saw Betsy Rodríguez at approximately 0930 on 07/26/2021. The patient was primarily endorsing somatic symptoms ranging from her chief complaint of back and chest pain to vision problems, ear pain, and other somatic symptoms. [facility] assessed the patient with EPS and a diversion plan was placed to avoid inpatient admission as the patient was only endorsing suicidal ideation in the context of her somatic symptoms. Safety planning included at home supervision by [facility] and close monitoring of the patient's medications. Treatment for somatic symptom disorder is frequent outpatient follow-up with her primary care provider to address and reassure the patient regarding her multiple somatic complaints. Recommend outpatient psychiatric follow-up as well as frequent outpatient follow-up with her primary care provider. Jeferson Lundberg MD
[2021-07-26] MEDS ORDERED: QUEtiapine 50 MG TAB PO SCH (21:00)
[2021-07-26] MEDS ORDERED: MELATONIN 5 MG TABLET PO SCH (21:00)
[2021-07-26] MEDS ORDERED: ATORVASTATIN 20 MG TAB PO SCH (21:00)
== END 2021-07-26 13:24 | disposition home or self-care (01) ==
LOC: EC 20:56
DX: F32.9 Major depressive disorder, single episode, unspecified (principal); J44.9 Chronic obstructive pulmonary disease, unspecified; E78.5 Hyperlipidemia, unspecified; F41.9 Anxiety disorder, unspecified; Z79.82 Long term (current) use of aspirin; Z79.02 Long term (current) use of antithrombotics/antiplatelets; Z88.5 Allergy status to narcotic agent; Z86.73 Personal history of transient ischemic attack (TIA), and cerebral infarction without residual deficits; Z90.89 Acquired absence of other organs; Z98.51 Tubal ligation status; Z87.891 Personal history of nicotine dependence
CPT/HCPCS: 82075; 94640; 99285

== ENCOUNTER 2021-08-03 02:09 | Inpatient (IN) | payer MEDICARE, OTHER ==
[2021-08-03] MEDS ORDERED: IPRATROPIUM-ALBUTEROL 3 ML NEB INHALATION STA (02:14)
[2021-08-03] MEDS ORDERED: methylPREDNISolone SOD SUCCI 125 MG/2 ML VIAL IV STA (02:14)
[2021-08-03] MEDS ORDERED: SODIUM CHLORIDE 0.9% 1,000 ML IV STA (02:14)
[2021-08-03] MEDS ORDERED: MORPHINE SULFATE 4 MG/ML SYRINGE IVP PRN (02:15)
[2021-08-03] MEDS ORDERED: MORPHINE SULFATE 4 MG/ML SYRINGE IVP STA (02:15)
[2021-08-03] MEDS ORDERED: diphenhydrAMINE 50 MG/ML 1 ML VIAL IVP STA (02:44)
[2021-08-03] MEDS ORDERED: KETOROLAC 15 MG/ML 1 ML VIAL IVP STA (02:44)
[2021-08-03] MEDS ORDERED: ACETAMINOPHEN TAB 500 MG TAB PO STA (02:44)
--- NOTE | 2021-08-03 02:55 | ED ---
Chest Pain HPI - General Chief Complaint: Shortness of Breath Stated Complaint: ELIZ, Back Pain Time Seen by Provider: 08/03/21 02:14 Source: EMS Mode of arrival: EMS Limitations: no limitations - Related Data Home Medications Medication Instructions Recorded Confirmed Aspirin EC [Ecotrin Low Dose] 81 mg PO DAILY 07/16/20 07/25/21 Vitamin B Complex 1 cap PO DAILY 07/16/20 07/25/21 Atorvastatin Calcium [Lipitor] 20 mg PO HS 10/13/20 07/25/21 Nitroglycerin Sl Tabs [Nitrostat] 0.4 mg SL Q5M PRN 12/04/20 07/25/21 Cyanocobalamin (Vitamin B-12) 1,000 mcg PO DAILY 02/11/21 07/25/21 [Vitamin B-12] Fluticasone Propionate [Flonase 1 spray EA NOSTRIL DAILY 02/11/21 07/25/21 Allergy Relief] Midodrine [ProAmatine] 5 mg PO TID 02/11/21 07/25/21 Cetirizine HCl [Zyrtec] 10 mg PO DAILY 06/24/21 07/25/21 Dextroamphetamine/Amphetamine 10 mg PO BID 06/24/21 07/25/21 [Adderall] Fluticasone/Umeclidin/Vilanter 1 puff INHALATION RT-DAILY 06/24/21 07/25/21 [Trelegy Ellipta 200-62.5-25] Furosemide [Lasix] 20 mg PO DAILY 06/24/21 07/25/21 Calcium Carbonate/Vitamin D3 1 tab PO DAILY 07/25/21 07/25/21 [Os-Eric 500-Vit D3 5 Mcg (200 Iu)] HYDROcodone/APAP 10-325MG [[place] 1 tab PO BID PRN 07/25/21 07/25/21 10-325] QUEtiapine [SEROquel] 50 mg PO HS 07/25/21 07/25/21 busPIRone HCl [Buspar] 10 mg PO BID 07/25/21 07/25/21 Previous Rx's Medication Instructions Recorded Sennosides [Senokot] 8.6 mg PO BID 30 Days #60 tab 12/08/20 Clopidogrel [Plavix] 75 mg PO DAILY tab 02/01/21 Acetaminophen Tab [Tylenol] 650 mg PO Q6HR PRN tab 06/25/21 Ipratropium Nebulized [Atrovent 0.5 mg INHALATION RT-QID 30 Days 06/25/21 Nebulized 0.2 MG/ML] #120 ml Melatonin 5 mg PO HS tablet 06/25/21 Pantoprazole [Protonix] 40 mg PO AC-BID 30 Days #60 tab 06/25/21 Ibuprofen 800 mg PO Q6HR PRN #20 tablet 06/29/21 Potassium Chloride ER [K-Dur 20] 20 meq PO DAILY #7 tab 06/29/21 Allergies Allergy/AdvReac Type Severity Reaction Status Date / Time cat dander Allergy Rash/Hives Verified 07/25/21 22:05 tomato Allergy Rash/Hives Verified 07/25/21 22:05 codeine AdvReac Unknown Verified 07/25/21 22:05 Review of Systems ROS Statement: Those systems with pertinent positive or pertinent negative responses have been documented in the HPI. ROS Other: All systems not noted in ROS Statement are negative. EKG Findings - EKG Comments: EKG Findings:: EKG is sinus rhythm 65 NC 114 QRS 84 QTc 436 Past Medical History Past Medical History: Chest Pain / Angina, COPD, CVA/TIA, Hyperlipidemia, Memory Impairment, Neurologic Disorder Additional Past Medical History / Comment(s): Pt recently admitted to [facility] on 12/31/20 with back pain. 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 History of Any Multi-Drug Resistant Organisms: None Reported Past Surgical History: Section, Tonsillectomy, Tubal Ligation Additional Past Surgical History / Comment(s): 01/02/21 lumbar puncture, past trach/peg tube, pt thinks some kind of brain/skull surgery while comatose in 2010 at [facility]. Past Anesthesia/Blood Transfusion Reactions: No Reported Reaction Past Psychological History: Anxiety Smoking Status: Former smoker Past Alcohol Use History: None Reported Past Drug Use History: None Reported - Past Family History Mother Family Medical History: Cancer Additional Family Medical History / Comment(s): Mother of cancer, pt does not know what type. Father Family Medical History: Cancer Additional Family Medical History / Comment(s): Father is alive and has had 3 different types of cancer but survived them all. General Exam Limitations: no limitations Course Vital Signs 08/03/21 08/03/21 08/03/21 02:18 02:48 03:04 Temperature 97.6 F Pulse Rate 81 69 70 Respiratory 18 Rate Blood Pressure 122/85 O2 Sat by Pulse 100 Oximetry 08/03/21 03:50 Temperature Pulse Rate 66 Respiratory 18 Rate Blood Pressure 110/78 O2 Sat by Pulse 99 Oximetry Disposition Clinical Impression: Costochondritis, acute, Dyspnea, Dizziness, Weakness, Acute exacerbation of chronic obstructive pulmonary disease Disposition: ADMITTED IP TO THIS [facility] Condition: Good Is patient prescribed a controlled substance at d/c from ED?: No Referrals: Chris Bocanegra MD [Primary Care Provider] - 1-2 days
--- NOTE | 2021-08-03 03:18 | XR ---
EXAMINATION TYPE: XR chest 1V portable DATE OF EXAM: 08/03/2021 COMPARISON: June 29, 2021 HISTORY: Short of breath TECHNIQUE: 2 view FINDINGS: Heart and mediastinum are normal. Lungs are clear. Diaphragm is normal. Bony thorax is inta ct. Pulmonary vascularity is normal. IMPRESSION: Normal chest. Normal heart. No change.
[2021-08-03 03:23] LABS: Basophils # (A) 0.1 k/uL (0-0.2); Basophils % (A) 1 %; Eosinophils # (A) 0.1 k/uL (0-0.7); Eosinophils % (A) 1 %; HCT 43.6 % (34.0-46.0); Lymphocytes # (A) 3.8 k/uL (1.0-4.8); Lymphocytes % (A) 29 %; MCH 30.3 pg (25.0-35.0); MCHC 33.3 g/dL (31.0-37.0); Mean Platelet Volume 7.5; Monocytes # (A) 0.5 k/uL (0-1.0); Monocytes % (A) 4 %; Neutrophils # (A) 8.3 k/uL (1.3-7.7); Neutrophils % (A) 64 %; Platelet Count 239 k/uL (150-450); RBC 4.79 m/uL (3.80-5.40); RDW 15.8 % (11.5-15.5)
[2021-08-03 03:35] LABS: HGB 14.5 gm/dL (11.4-16.0)
[2021-08-03 03:37] LABS: ALT 43 U/L (4-34); AST 26 U/L (14-36); African American GFR (CKD) >90 (>60 ml/min/1.73 sqM); Albumin 3.9 g/dL (3.5-5.0); Alkaline Phosphatase 138 U/L (38-126); Anion Gap 9 mmol/L; Blood Urea Nitrogen 14 mg/dL (7-17); Calcium 9.3 mg/dL (8.4-10.2); Carbon Dioxide 23 mmol/L (22-30); Chloride 106 mmol/L (98-107); Glucose 87 mg/dL (74-99); Magnesium 2.3 mg/dL (1.6-2.3); Non-African American GFR(CKD) >90 (>60 ml/min/1.73 sqM); Potassium 4.4 mmol/L (3.5-5.1); Sodium 138 mmol/L (137-145); Total Bilirubin 0.5 mg/dL (0.2-1.3); Total Protein 6.8 g/dL (6.3-8.2)
[2021-08-03 03:53] LABS: INR 0.9 (<1.2); Prothrombin Time 9.5 sec (9.0-12.0)
[2021-08-03 03:54] LABS: Partial Thromboplastin Time 21.5 sec (22.0-30.0)
[2021-08-03] MEDS ORDERED: ZOLPIDEM 5 MG TAB PO STA (04:13)
[2021-08-03] MEDS: SODIUM CHLORIDE 0.9% 1,000 ML IV SCH ×2 (04:40→21:08)
[2021-08-03] MEDS: methylPREDNISolone SOD SUCCI 125 MG/2 ML VIAL IV SCH ×4 (05:52→23:09)
[2021-08-03] MEDS: IPRATROPIUM-ALBUTEROL 3 ML NEB INHALATION PRN ×3 (08:12→20:00)
[2021-08-03] MEDS: IPRATROPIUM 0.5 MG/2.5 ML NEBU INHALATION SCH ×2 (15:36→19:51)
--- NOTE | 2021-08-03 15:57 | HP ---
HISTORY AND PHYSICAL 50-year-old white female who is ER doctor says he is unable to get her home due to her imbalance and dizziness and chronic chest pain. Recurrent visits to the emergency room. The patient is not doing well. PAST MEDICAL HISTORY: Angina, COPD, CVA, TIA, dyslipidemia, memory impairment, fibromyalgia, prior intercranial bleed with encephalomalacia which is a part contributing to her confusion, vertigo, ataxia, lumbar disk disease, chronic right-sided weakness. FAMILY HISTORY: Mother with cancer. Father with cancer. PHYSICAL EXAM: Temp 97.6, pulse is 69 to 81, respiratory rate 16 to 20, blood pressure 122/85. Cardiovascular S1, S2. Lungs clear. GI soft. Hematology negative Homans. Psych fair mood and affect. ASSESSMENT: 1. Costochondritis. 2. Acute dyspnea, dizziness, weakness. 3. Chronic obstructive pulmonary disease exacerbation. Prognosis is guarded. Await for neurology and physical therapy and discharge planning to see here. Suspect there is no acute injuries going on or heart attack going on. She has been seen by bridal gown fitter multiple times. She has negative troponin, negative BNP, negative D-dimer. Chest x-ray is normal. Get PT, OT and rehab facility will probably be needed or an AFC home as she keeps coming back to the hospital on multiple occasions. MMODL / IJN: [id number] /
[2021-08-03] MEDS: ACETAMINOPHEN TAB 325 MG TAB PO PRN (17:32)
[2021-08-03] MEDS: PANTOPRAZOLE 40 MG TABLET PO SCH (17:35)
[2021-08-03] MEDS: ATORVASTATIN 20 MG TAB PO SCH (21:07)
[2021-08-03] MEDS: SENNOSIDES 8.6 MG TAB PO SCH (21:07)
[2021-08-03] MEDS: MELATONIN 5 MG TABLET PO SCH (21:07)
[2021-08-03] MEDS: QUEtiapine 50 MG TAB PO SCH (21:24)
[2021-08-04] MEDS: ACETAMINOPHEN TAB 325 MG TAB PO PRN ×2 (00:52→15:14)
[2021-08-04] MEDS: SODIUM CHLORIDE 0.9% 1,000 ML IV SCH ×3 (00:59→21:09)
[2021-08-04] MEDS: methylPREDNISolone SOD SUCCI 125 MG/2 ML VIAL IV SCH (05:20)
[2021-08-04] MEDS: IPRATROPIUM 0.5 MG/2.5 ML NEBU INHALATION SCH ×4 (08:04→19:50)
[2021-08-04] MEDS: CYANOCOBALAMIN 500 MCG TAB PO SCH (08:21)
[2021-08-04] MEDS: FUROSEMIDE 20 MG TAB PO SCH (08:21)
[2021-08-04] MEDS: MULTIVITAMINS, THERA 1 EACH TAB PO SCH (08:21)
[2021-08-04] MEDS: POTASSIUM CHLORIDE ER 20 MEQ TAB.ER PO SCH (08:21)
[2021-08-04] MEDS: PANTOPRAZOLE 40 MG TABLET PO SCH ×2 (08:21→17:12)
[2021-08-04] MEDS: LORATADINE 10 MG TAB PO SCH (08:21)
[2021-08-04] MEDS: SENNOSIDES 8.6 MG TAB PO SCH ×2 (08:21→21:08)
[2021-08-04] MEDS: ASPIRIN 81 MG PO SCH (08:21)
[2021-08-04] MEDS: FLUTICASONE 50MCG/SPRAY NASAL 16GM EA NOSTRIL SCH (08:22)
[2021-08-04] MEDS ORDERED: CLOPIDOGREL 75 MG TAB PO SCH (09:00)
--- NOTE | 2021-08-04 11:40 | PN ---
PROGRESS NOTE She is admitted with shortness of breath, dizziness, and balance. Says she has never had trouble like this before with her breathing or with balance. She has been in and out of the hospital multiple times. Seen by Psychiatry multiple times as well as neurology and cardiology and Pulmonary. She was seen on last admission by the psychiatrist who was unable to help her apparently. She went home and she had difficulties she says with bedbugs in her complex which is making her severely stressed out as well as chronic chest pain, pleuritic costochondritis type pain, worse with breathing and movement. Not really helps with the pain medicine she was sent home on last admission. She said they were giving her muscle relaxer, which did not help her also for the pain. Her breathing is worse. Her dizziness is worse. She does continue to smoke at home and has severe anxiety, which is not being appropriately treated right now and we will have Psychiatry see her as well as Neurology and Pulmonary for her breathing. PHYSICAL EXAMINATION: Temperature is 97 to 98, blood pressure 120 to 130s over 80s, O2 94 on room air. Now on 2 L, pulse 65-70. ASSESSMENT: 1. Severe anxiety. 2. Atypical chest pain. 3. History of prior intracranial bleed encephalomalacia. 4. She has chronic right-sided weakness. 5. She has degenerative disease with neuropathy getting worse in her legs and arms. She is supposed to get epidural shots as an outpatient. She never did. 6. Prognosis is guarded. I think we need to get psychiatry to see her for severe anxiety, which her dad says is her main problem is severe anxiety. Smoke cessation counseling was given. PROGNOSIS: Extremely guarded. MMODL / IJN: [id number] /
[2021-08-04] MEDS: LIDOCAINE 5% PATCH TOPICAL SCH (11:59)
--- NOTE | 2021-08-04 12:56 | P.CN ---
Psychiatric Consult - . Consult date: 08/04/21 Consult:: 08/04/21 12:54 IDENTIFYING DATA: This patient is a , on Social Security disability, 50-year-old female with significant history of head trauma and CVA who has had numerous hospitalizations over the past few months who is presenting to the hospital with a chief complaint of chest pain. HISTORY OF PRESENT ILLNESS: The patient presented to the hospital on 08/03/21, with a chief complaint of chest pain. Psychiatry has been consulted for valuation and management of severe anxiety. Upon evaluation by this provider, the patient is not endorsing any significant mood symptoms. She is not reporting any depression or bipolar symptoms at this time. She does not make any mention of any anxiety but is instead very focused on her somatic symptoms. The patient is currently reporting numerous somatic complaints including blurry vision, difficulty swallowing, chest pain, back pain, and "paralysis." The patient has had numerous hospitalizations including 5 this past month with the same complaints of chest pain and back pain. As the interview continued, the patient began endorsing different somatic complaints including "not sleeping for the past 2 days" and "being unable to raise my arm" and "I'm feeling dizzy." The patient states that she feels like she needs something for the pain and to sleep. She was informed that it is currently not nighttime and that her scheduled medications of Seroquel and melatonin will be given at that time. The patient is currently requesting to take something at this time. This provider discussed the patient at length that she does have a significant history of head trauma and has been worked up numerous times for her somatic complaints with no conclusive medical reason for these issues. This provider discussed at length with the patient the diagnosis of somatic symptoms disorder as a patient is endorsing numerous somatic complaints that are often nonspecific and have been ongoing for 4 more than the past 6 months. PAST PSYCHIATRIC HISTORY: Patient has a history of depression. Prior to this admission, the home medications of this patient include Seroquel 50 mg at bedtime, Adderall 10 mg by mouth twice a day, BuSpar 10 mg by mouth twice a day, and melatonin. The patient has had 4prior inpatient psychiatric hospitalizations. Patient denies any psychiatric outpatient follow-up. She reports no prior attempts at suicide in the past. PAST MEDICAL HISTORY: Past Medical History: Chest Pain / Angina, COPD, CVA/TIA, Hyperlipidemia, Memory Impairment, Neurologic Disorder Additional Past Medical History / Comment(s): Pt recently admitted to [facility] on 12/31/20 with back pain. 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 History of Any Multi-Drug Resistant Organisms: None Reported Past Surgical History: Section, Tonsillectomy, Tubal Ligation Additional Past Surgical History / Comment(s): 01/02/21 lumbar puncture, past trach/peg tube, pt thinks some kind of brain/skull surgery while comatose in 2010 at [facility]. Past Anesthesia/Blood Transfusion Reactions: No Reported Reaction Past Psychological History: Anxiety Smoking Status: Former smoker Past Alcohol Use History: None Reported Past Drug Use History: None Reported ALLERGIES: Cat dander, tomato, codeine CHEMICAL DEPENDENCY HISTORY: The patient denies any significant tobacco, alcohol, marijuana, or illicit drug use at this time. FAMILY PSYCHIATRIC/SUBSTANCE USE HISTORY: Patient's maternal uncle and her both completed suicide. SOCIAL HISTORY: Patient was born and raised in [place], [place]. She reports 12th grade education. That her injury in 2010, the patient worked at the [employer]. She currently receives Social Security disability. She has 2 adult children and multiple grandchildren. She reportedly lives alone in [place]. MENTAL STATUS EXAM: General Appearance: Patient appears to be stated age, dressed in hospital gown, with obese body habitus, and has multiple tattoos. Behavior: Patient is lying down in bed with elevated psychomotor activity. Speech: Speech is spontaneous, and repetitive. Mood/Affect: Patient reports their mood is "in pain", affect is initially dysphoric but is able to calm down as interview progressed. Suicidality/Homicidality: Patient denies having any suicidal or homicidal ideation intent or plan. Perceptions: Patient denies any visual hallucinations and denies any auditory hallucinations Though content/process: There is no evidence of any delusional thought content and thought process is linear and goal-directed. Memory and concentration: AOX3, grossly intact for the purposes of this session. 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 She has been constantly worked up for her complaints with no conclusive evidence found or treatment being required. Major depressive disorder, with anxious features History of traumatic brain injury History of CVA/TIA PLAN: -At this time patient DOES NOT meet criteria for inpatient psychiatric admission. The patient is not presenting with any imminent risk of harm to self or others. The patient is currently not reporting any suicidal ideation although will verbalize that she does not want to live like this anymore. She expresses no active desire to try and kill herself. -Delirium precautions recommended with patient including - avoiding use of narcotics and CAMERA MAKER sedatives, limit anticholinergic medications when possible, frequent re-orientation, minimize use of restraints, open window shades during the day and close them at night -Would recommend the following medication changes/additions: No psychiatric medication recommendations will be made at this time. Agree with the use of Seroquel and melatonin at bedtime to aid in the patient's insomnia. -Time spent providing supportive therapy with the patient was 15 minutes. We discussed coping skills and other techniques to calm down when experiencing somatic symptoms, providing psychoeducation on her symptoms, and cognitive reframing. -The primary treatment of somatic symptom disorder is frequent outpatient follow-up and reassurance by her primary care physician. Recommend weekly follow-up and reassurance by her primary provider and to minimize invasive testing and medications of abuse such as Adderall, narcotics, and benzodiaz epines. -Recommend outpatient psychiatric follow-up with [facility]. -Psychiatry will sign off at this point, please contact with any questions. 08/04/21 12:55
[2021-08-04] MEDS: IPRATROPIUM-ALBUTEROL 3 ML NEB INHALATION PRN (16:10)
[2021-08-04] MEDS: methylPREDNISolone SOD SUCCI 40 MG/ML 1 ML VIAL IV SCH (17:12)
--- NOTE | 2021-08-04 19:27 | P.CNNES ---
History of Present Illness Consult date: 08/04/21 History of Present Illness: The patient is a 50-year-old female who is seen in neurologic consultation on August 04, 2021, via telemedicine. History is obtained from the patient and from the chart. The patient's history is unreliable. Patient reports that she came into the emergency department because of chest pain and spine pain. She says she is "partially paralyzed" in her right leg below the knee. She also complains of dizziness/lightheadedness. She reports having an episode of feeling lightheaded with her legs giving out and she "woke up on the floor". She says EMS was notified however she refused to go into the hospital. The patient reports that she lives alone and so this event was not witnessed. The patient reports that she ambulates at home with a walker. She says she has been having difficulty with ambulation for the past several weeks. She is also been feeling dizzy for the past 3-4 weeks. She reports that all of her symptoms are getting worse. She reports having home care "occasionally". The patient reports blurred vision. She says that she has shortness of breath and is unable to breathe through her nose. Patient denies coughing. She does report sneezing. Patient reports difficulty swallowing and difficulty with her speech for the past 2-3 weeks. She says she has headaches occasionally. Patient reports decreased movement of her right arm with tingling in her right arm. This has been present for a couple weeks. In review of the chart, the patient has had several, recurrent visits to the emergency department. She has been fully worked up by cardiology. Past Medical History Past Medical History: Chest Pain / Angina, COPD, CVA/TIA, Hyperlipidemia, Memory Impairment, Neurologic Disorder Additional Past Medical History / Comment(s): Pt recently admitted to [facility] on 12/31/20 with back pain. 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 History of Any Multi-Drug Resistant Organisms: None Reported Past Surgical History: Section, Tonsillectomy, Tubal Ligation Additional Past Surgical History / Comment(s): 01/02/21 lumbar puncture, past trach/peg tube, pt thinks some kind of brain/skull surgery while comatose in 2010 at [facility]. Past Anesthesia/Blood Transfusion Reactions: No Reported Reaction Past Psychological History: Anxiety Additional Psychological History / Comment(s): Pt resides alone in an apartment. She has [facility] home care and is seen by [facility]. She uses a walker to ambulate. She has a nebulizer. She does not drive, a friend takes her places. Smoking Status: Current some day smoker Past Alcohol Use History: None Reported Additional Past Alcohol Use History / Comment(s): Pt states started smoking in 1989 and still sometimes smokes Past Drug Use History: None Reported - Past Family History Mother Family Medical History: Cancer Additional Family Medical History / Comment(s): Mother of cancer, pt does not know what type. Father Family Medical History: Cancer Additional Family Medical History / Comment(s): Father is alive and has had 3 different types of cancer but survived them all. Medications and Allergies Home Medications Medication Instructions Recorded Confirmed Type Aspirin EC [Ecotrin Low Dose] 81 mg PO DAILY 07/16/20 08/03/21 History Vitamin B Complex 1 cap PO DAILY 07/16/20 08/03/21 History Atorvastatin Calcium [Lipitor] 20 mg PO HS 10/13/20 08/03/21 History Nitroglycerin Sl Tabs [Nitrostat] 0.4 mg SL Q5M PRN 12/04/20 08/03/21 History Sennosides [Senokot] 8.6 mg PO BID 30 Days #60 tab 12/08/20 08/03/21 Rx Clopidogrel [Plavix] 75 mg PO DAILY tab 02/01/21 08/03/21 Rx Cyanocobalamin (Vitamin B-12) 1,000 mcg PO DAILY 02/11/21 08/03/21 History [Vitamin B-12] Fluticasone Propionate [Flonase 1 spray EA NOSTRIL DAILY 02/11/21 08/03/21 History Allergy Relief] Midodrine [ProAmatine] 5 mg PO TID 02/11/21 08/03/21 History Cetirizine HCl [Zyrtec] 10 mg PO DAILY 06/24/21 08/03/21 History Dextroamphetamine/Amphetamine 10 mg PO BID 06/24/21 08/03/21 History [Adderall] Fluticasone/Umeclidin/Vilanter 1 puff INHALATION RT-DAILY 06/24/21 08/03/21 History [Trelegy Ellipta 200-62.5-25] Furosemide [Lasix] 20 mg PO DAILY 06/24/21 08/03/21 History Acetaminophen Tab [Tylenol] 650 mg PO Q6HR PRN tab 06/25/21 08/03/21 Rx Ipratropium Nebulized [Atrovent 0.5 mg INHALATION RT-QID 30 Days 06/25/21 08/03/21 Rx Nebulized 0.2 MG/ML] #120 ml Melatonin 5 mg PO HS tablet 06/25/21 08/03/21 Rx Pantoprazole [Protonix] 40 mg PO AC-BID 30 Days #60 tab 06/25/21 08/03/21 Rx Ibuprofen 800 mg PO Q6HR PRN #20 tablet 06/29/21 08/03/21 Rx Potassium Chloride ER [K-Dur 20] 20 meq PO DAILY #7 tab 06/29/21 08/03/21 Rx Calcium Carbonate/Vitamin D3 1 tab PO DAILY 07/25/21 08/03/21 History [Os-Eric 500-Vit D3 5 Mcg (200 Iu)] HYDROcodone/APAP 10-325MG [[place]wood 1 tab PO QID PRN 07/25/21 08/03/21 History 10-325] QUEtiapine [SEROquel] 50 mg PO HS 07/25/21 08/03/21 History busPIRone HCl [Buspar] 10 mg PO BID 07/25/21 08/03/21 History Allergies Allergy/AdvReac Type Severity Reaction Status Date / Time cat dander Allergy Rash/Hives Verified 08/03/21 07:37 tomato Allergy Rash/Hives Verified 08/03/21 07:37 codeine AdvReac Unknown Verified 08/03/21 07:37 Physical Examination - Vital Signs Vital Signs: Vital Signs Temp Pulse Pulse Resp BP Pulse Ox 08/04/21 14:59 97.8 F 73 18 117/72 98 08/04/21 07:00 97.8 F 65 16 136/82 94 L 08/04/21 01:56 EDT 98.1 F 67 20 125/80 95 08/03/21 20:13 84 08/03/21 20:00 80 08/03/21 19:51 98.3 F 85 20 127/79 95 Intake and Output 08/04/21 08/04/21 08/04/21 06:59 14:59 22:59 Intake Total 473 Output Total Balance 473 Intake: Oral 473 Output: Emesis Other: # Voids 2 1 Gen.: The patient is reclining in the bed. She is obese. She is in no acute distress. HEENT: Head is atraumatic, normocephalic. Fundus not visualized. There is no scleral icterus. Mucous membranes are moist. Neck: Supple without carotid bruits Heart: Regular rate and rhythm Extremities: Without edema Neurological examination Mental status: The patient is awake, alert and oriented 3. Speech is slightly dysarthric. She speaks very quickly and does not enunciate her words. Frequently her sentences and with the word "yeah". Cranial nerves: Pupils are unequal. Left pupil is 5-6 mm. Right pupil 4 mm. Both are reactive. Visual newman are full to confrontation. Extraocular movements are intact. There is no nystagmus. Facial sensations reportedly diminished in the right V2 distribution. There is no facial asymmetry. Hearing is grossly intact. Uvula and palate are midline. Shoulder shrug is symmetric. Tongue protrudes midline. Motor: Bilateral grain roaster strength 4/5. Left upper extremity strength 5/5. Patient reports weakness and inability to use her right upper extremity. She does not cooperate with strength testing of the right upper extremity. Left hip flexor 5/5. Left ankle plantar and dorsiflexors are 5/5. With supposedly efforts at raising the right leg off of the bed, there is no downward pressure felt under the left heel. Sensory: The patient reports decreased light touch in the right arm and right leg. Deep tendon reflexes: Absent throughout Coordination: Finger to nose testing is intact bilaterally. Rapid alternating movements are intact bilaterally. Results - Laboratory Findings CBC and BMP: 08/03/21 03:08 08/03/21 03:08 Abnormal Lab Findings: Abnormal Labs 08/03/21 08/03/2108/03/21 03:08 03:08 03:08 WBC 13.0 H RDW 15.8 H Neutrophils # 8.3 H APTT 21.5 L ALT 43 H Alkaline Phosphatase 138 H Assessment and Plan Assessment: 1. Reported increasing weakness and dizziness in a patient with an inconsistent neurological examination, consider somatoform disorder 2. Reported history of traumatic brain injury Plan: 1. Consider placement of this patient and a more supportive atmosphere, such as an adult fci 2. Agree with psychiatric consultation
[2021-08-04] MEDS: ATORVASTATIN 20 MG TAB PO SCH (21:08)
[2021-08-04] MEDS: QUEtiapine 50 MG TAB PO SCH (21:08)
[2021-08-04] MEDS: MELATONIN 5 MG TABLET PO SCH (21:08)
[2021-08-05] MEDS: SYMBICORT 80-4.5 MCG INHALER INHALATION SCH ×3 (00:42→11:44)
[2021-08-05] MEDS: methylPREDNISolone SOD SUCCI 40 MG/ML 1 ML VIAL IV SCH ×3 (00:42→16:52)
[2021-08-05] MEDS: POTASSIUM CHLORIDE ER 20 MEQ TAB.ER PO SCH (08:07)
[2021-08-05] MEDS: CYANOCOBALAMIN 500 MCG TAB PO SCH (08:07)
[2021-08-05] MEDS: PANTOPRAZOLE 40 MG TABLET PO SCH ×2 (08:07→16:52)
[2021-08-05] MEDS: FUROSEMIDE 20 MG TAB PO SCH (08:07)
[2021-08-05] MEDS: MULTIVITAMINS, THERA 1 EACH TAB PO SCH (08:08)
[2021-08-05] MEDS: ASPIRIN 81 MG PO SCH (08:08)
[2021-08-05] MEDS: LORATADINE 10 MG TAB PO SCH (08:08)
[2021-08-05] MEDS: SENNOSIDES 8.6 MG TAB PO SCH ×2 (08:08→19:52)
[2021-08-05] MEDS: ENOXAPARIN 40 MG/0.4 ML SYRINGE SQ SCH (08:10)
[2021-08-05] MEDS: FLUTICASONE 50MCG/SPRAY NASAL 16GM EA NOSTRIL SCH (08:17)
[2021-08-05] MEDS: LIDOCAINE 5% PATCH TOPICAL SCH (08:17)
[2021-08-05] MEDS: IPRATROPIUM 0.5 MG/2.5 ML NEBU INHALATION SCH ×4 (08:44→20:32)
[2021-08-05] MEDS: SODIUM CHLORIDE 0.9% 1,000 ML IV SCH ×2 (11:43→18:17)
--- NOTE | 2021-08-05 13:06 | P.PAINCN ---
History of Present Illness - Reason for Consult Consult date: 08/05/21 - Chief Complaint Back Pain - History of Present Illness Betsy is a 50-year-old female who is seen as an inpatient consult. Betsy has a significant past medical history including traumatic brain injury, CVA, and COPD. She has history of chronic neck back pain with lumbar spondylosis and facet arthropathy without myelopathy. She also has history of cervical spondylosis with facet arthropathy without myelopathy. At this visit she is complaining of low back pain that radiates down both legs just below her knees. She reports pain is greater on the right than the left. She reports that this pain is been going on for the last greater than 6 months. She describes it as a sharp, aching, throbbing, and burning sensation. She reports that her pain is aggravated by excessive movement in certain positions. She has tried ice, heat, physical therapy along with interventions help treat her pain. Pain is been relieved in the past with interventions she was not sure as to the last time she had an injection. Today she rates her pain as 7 out of 10 at a 0-to-10 scale. She reports that her pain varies from 4-9 out of 10. She denies any bowel or bladder dysfunction, saddle anesthesia, or any other red flag symptoms. Last dose of Lovenox was at 8:10 AM this morning. Past Medical History Past Medical History: Chest Pain / Angina, COPD, CVA/TIA, Hyperlipidemia, Memory Impairment, Neurologic Disorder Additional Past Medical History / Comment(s): Pt recently admitted to [facility] on 12/31/20 with back pain. Other hx: Pt has history of brain injury following fall down flight of stairs in 2010 and was comatose for 3 months, then when she regained consciousness she had a CVA with R sided paralysis/parasthesia/decreased vision R eye/decreased hearing R ear/loss of sensation r inside of mouth-takes care with what food she eats/no longer has feelings of hunger/cannot taste or smell, pt denies ever having a seizure, hypo thyroid, occasional pedal edema, occasional headaches, chronic back pain, cervical occipital neuritis, ataxia, vertigo. History of Any Multi-Drug Resistant Organisms: None Reported Past Surgical History: Section, Tonsillectomy, Tubal Ligation Additional Past Surgical History / Comment(s): 01/02/21 lumbar puncture, past trach/peg tube, pt thinks some kind of brain/skull surgery while comatose in 2010 at [facility]. Past Anesthesia/Blood Transfusion Reactions: No Reported Reaction Past Psychological History: Anxiety Additional Psychological History / Comment(s): Pt resides alone in an apartment. She has [facility] home care and is seen by [facility]. She uses a walker to ambulate. She has a nebulizer. She does not drive, a friend takes her places. Smoking Status: Current some day smoker Past Alcohol Use History: None Reported Additional Past Alcohol Use History / Comment(s): Pt states started smoking in 1989 and still sometimes smokes Past Drug Use History: None Reported - Past Family History Mother Family Medical History: Cancer Additional Family Medical History / Comment(s): Mother of cancer, pt does not know what type. Father Family Medical History: Cancer Additional Family Medical History / Comment(s): Father is alive and has had 3 different types of cancer but survived them all. Medications and Allergies Home Medications Medication Instructions Recorded Confirmed Type Aspirin EC [Ecotrin Low Dose] 81 mg PO DAILY 07/16/20 08/03/21 History Vitamin B Complex 1 cap PO DAILY 07/16/20 08/03/21 History Atorvastatin Calcium [Lipitor] 20 mg PO HS 10/13/20 08/03/21 History Nitroglycerin Sl Tabs [Nitrostat] 0.4 mg SL Q5M PRN 12/04/20 08/03/21 History Sennosides [Senokot] 8.6 mg PO BID 30 Days #60 tab 12/08/20 08/03/21 Rx Clopidogrel [Plavix] 75 mg PO DAILY tab 02/01/21 08/03/21 Rx Cyanocobalamin (Vitamin B-12) 1,000 mcg PO DAILY 02/11/21 08/03/21 History [Vitamin B-12] Fluticasone Propionate [Flonase 1 spray EA NOSTRIL DAILY 02/11/21 08/03/21 History Allergy Relief] Midodrine [ProAmatine] 5 mg PO TID 02/11/21 08/03/21 History Cetirizine HCl [Zyrtec] 10 mg PO DAILY 06/24/21 08/03/21 History Dextroamphetamine/Amphetamine 10 mg PO BID 06/24/21 08/03/21 History [Adderall] Fluticasone/Umeclidin/Vilanter 1 puff INHALATION RT-DAILY 06/24/21 08/03/21 History [Treleannika Ellipta 200-62.5-25] Furosemide [Lasix] 20 mg PO DAILY 06/24/21 08/03/21 History Acetaminophen Tab [Tylenol] 650 mg PO Q6HR PRN tab 06/25/21 08/03/21 Rx Ipratropium Nebulized [Atrovent 0.5 mg INHALATION RT-QID 30 Days 06/25/21 08/03/21 Rx Nebulized 0.2 MG/ML] #120 ml Melatonin 5 mg PO HS tablet 06/25/21 08/03/21 Rx Pantoprazole [Protonix] 40 mg PO AC-BID 30 Days #60 tab 06/25/21 08/03/21 Rx Ibuprofen 800 mg PO Q6HR PRN #20 tablet 06/29/21 08/03/21 Rx Potassium Chloride ER [K-Dur 20] 20 meq PO DAILY #7 tab 06/29/21 08/03/21 Rx Calcium Carbonate/Vitamin D3 1 tab PO DAILY 07/25/21 08/03/21 History [Os-Eric 500-Vit D3 5 Mcg (200 Iu)] HYDROcodone/APAP 10-325MG [[place] 1 tab PO QID PRN 07/25/21 08/03/21 History 10-325] QUEtiapine [SEROquel] 50 mg PO HS 07/25/21 08/03/21 History busPIRone HCl [Buspar] 10 mg PO BID 07/25/21 08/03/21 History Allergies Allergy/AdvReac Type Severity Reaction Status Date / Time cat dander Allergy Rash/Hives Verified 08/03/21 07:37 tomato Allergy Rash/Hives Verified 08/03/21 07:37 codeine AdvReac Unknown Verified 08/03/21 07:37 Physical Exam Vitals: Vital Signs Temp Pulse Pulse Resp BP Pulse Ox 08/05/21 08:59 76 08/05/21 08:46 72 08/05/21 08:00 18 08/05/21 07:10 97.7 F 80 17 116/77 98 08/05/21 02:00 18 08/05/21 01:14 97.5 F L 70 18 124/83 96 08/04/21 19:32 18 08/04/21 18:54 98.1 F 83 17 121/73 93 L 08/04/21 16:23 78 08/04/21 16:14 97 08/04/21 16:12 75 08/04/21 14:59 97.8 F 73 18 117/72 98 Intake and Output 08/04/21 08/05/21 08/05/21 22:59 06:59 14:59 Intake Total 511 300 Balance 511 300 Intake: Oral 511 300 Other: Voiding Method Toilet Toilet Bedside Commode Bedside Commode # Voids 1 2 1 REVIEW OF ORGAN SYSTEMS: CONSTITUTIONAL: No fevers or chills. No recent weight loss. EYES: denies troubles with vision. HEENT: No difficulties with hearing. No nosebleeds. No difficulty swallowing. RESPIRATORY: Denies any troubles with breathing or dyspnea on exertion. CARDIOVASCULAR: Denies any chest pain, palpitations, or recent heart attacks. GASTROINTESTINAL: Denies fatty food intolerance. Has change in bowel habits and gas bloat. GENITOURINARY: Denies any blood in urine. Has increased urinary frequency. NEUROLOGICAL: + numbness and tingling along the distal extremities. No seizure disorders or headaches. MUSCULOSKELETAL: Has back pain. SKIN:no skin cancer. No rash. PSYCHIATRIC: Denies current depression or suicidal thoughts. ENDOCRINE: Denies current thyroid disorders. Denies any blood sugar glucose intolerance. HEME/LYMPHATIC: Denies any lumps and bumps around the neck. History of deep venous thrombosis. ALLERGY/IMMUNOLOGY: No immunoglobulin therapy. No immune deficiencies. BREAST: Denies current breast lumps, pain or nipple discharge. Physical Examinations : Constitutiona : Cooperative , not in acute distress , walks with walker and uses wheelchair as needed. HEENT : nech : supple , no Lymphadenopathy , normal thyroid size . : eyes no ptosis , no icterus, no photophobia . : ENT normal of hearing , normal oropharynx , no Thrush . Respiratory : Chest diminished to auscultations Bilaterally , wheezing , no Rhonchi . Cardiovascula : regular rate and rhythem , S1 , S2 , no S3 , no S4. Gastrointestina : abdomen soft no tenderness , bowel sounds , no organomegally . Genitourinary : Defferred . neurologic : Cranial nerve II to XII intact , no focal neurological deffecit . psychatric : alert , oriented X 3 , appropriate affect , intact judgment and insight to her normal state with her history of traumatic brain injury . Lymphatic : no Lymphadenopathy . musculoskeltal : Lumber spine moter stegnth lower extremities ,thigh and legs 3/5 Right side , 5/5 Left side deep tendon reflexes : Decreased Knee Jerk , decreased ankle Jerk lumber facet Loading Test= unable to perform Range of motion of the lumbar spine Flexion 30 degrees, extension 10 degrees strait leg raising test , positive at 20 degree . Results CBC & Chem 7: 08/03/21 03:08 08/03/21 03:08 Assessment and Plan Assessment: Assessment and plan= chronic low back pain secondary to lumbar degenerative disc disease , lumbar spondylosis with lumbar facet arthropathy . Diagnoses, prognosis, treatment options, including but not limited to physical therapy, medication management, interventional therapies, and surgery, were discussed with the patient All the questions answered MAPS Reviwed and it was apropriate . Interventions: Patient may benefit from lumbar epidural steroid injection at L4 5. Patient's last dose of Lovenox was 8:10 AM this morning Follow up in clinic 2-4 weeks to evaluate procedures effectiveness. I have spent 50 minutes on patient care today. The time was used to review the medical records including relevant urine studies and Prescription history (MAPs), review of the available imaging, evaluation and examination of the patient, coordination of care with the medical staff and if applicable referring physicians, as well as creation of the medical record. , Time with Patient: Greater than 30 PQRS Measure Charge Sheet - Pain Location Chest Non-Pharmacological Interventions: Distraction Head Non-Pharmacological Interventions: Darkened Room, Heat Pharmacological Interventions: Discuss Pain Med Options PQRS Narrative: Smoking Status Current every day smoker Do You Want the Pneumonia No Vaccine AT THIS TIME? Blood Pressure [Left Arm] 116/77 Blood Pressure 142/87 Pain Intensity [Head] 0 Pain Intensity [Chest] 0 Pain Intensity [Back] 8 Pain Intensity 7 Pain Scale Used Numeric (1 - 10) Scale Used Numeric (1 - 10) Home Medications: Ambulatory Orders Aspirin EC [Ecotrin Low Dose] 81 mg PO DAILY 07/16/20 Vitamin B Complex 1 cap PO DAILY 07/16/20 Atorvastatin Calcium [Lipitor] 20 mg PO HS 10/13/20 Nitroglycerin Sl Tabs [Nitrostat] 0.4 mg SL Q5M PRN 12/04/20 Sennosides [Senokot] 8.6 mg PO BID 30 Days #60 tab 12/08/20 Clopidogrel [Plavix] 75 mg PO DAILY tab 02/01/21 Cyanocobalamin (Vitamin B-12) [Vitamin B-12] 1,000 mcg PO DAILY 02/11/21 Fluticasone Propionate [Flonase Allergy Relief] 1 spray EA NOSTRIL DAILY 02/11/21 Midodrine [ProAmatine] 5 mg PO TID 02/11/21 Cetirizine HCl [Zyrtec] 10 mg PO DAILY 06/24/21 Dextroamphetamine/Amphetamine [Adderall] 10 mg PO BID 06/24/21 Fluticasone/Umeclidin/Vilanter [Trelegy Ellipta 200-62.5-25] 1 puff INHALATION RT-DAILY 06/24/21 Furosemide [Lasix] 20 mg PO DAILY 06/24/21 Acetaminophen Tab [Tylenol] 650 mg PO Q6HR PRN tab 06/25/21 Ipratropium Nebulized [Atrovent Nebulized 0.2 MG/ML] 0.5 mg INHALATION RT-QID 30 Days #120 ml 06/25/21 Melatonin 5 mg PO HS tablet 06/25/21 Pantoprazole [Protonix] 40 mg PO AC-BID 30 Days #60 tab 06/25/21 Ibuprofen 800 mg PO Q6HR PRN #20 tablet 06/29/21 Potassium Chloride ER [K-Dur 20] 20 meq PO DAILY #7 tab 06/29/21 Calcium Carbonate/Vitamin D3 [Os-Eric 500-Vit D3 5 Mcg (200 Iu)] 1 tab PO DAILY 07/25/21 HYDROcodone/APAP 10-325MG [[place] 10-325] 1 tab PO QID PRN 07/25/21 QUEtiapine [SEROquel] 50 mg PO HS 07/25/21 busPIRone HCl [Buspar] 10 mg PO BID 07/25/21
--- NOTE | 2021-08-05 13:51 | FL ---
EXAMINATION TYPE: FL barium swallow DATE OF EXAM: 08/05/2021 CLINICAL HISTORY: Dysphagia. TECHNIQUE: A single contrast esophagram is performed utilizing barium only due to patient's underlyi ng confusion. A total of 6 seconds of fluoroscopic time was utilized during procedure and 25 images obtained COMPARISON: Chest CT April 01, 2020 FINDINGS: Limited single contrast esophagram performed. Technologist told straw and patient drinks in semiupright supine position. The esophagus shows satisfactory motility and emptying into the stomach . No evidence of fixed hiatal hernia or stricture noted. No diverticulum. No significant gastroesoph ageal reflux was seen during real time performance of this study. Cholecystectomy clips and IVC filte r incidentally noted during performance of study. IMPRESSION: No significant abnormality is seen to account for patient's symptoms on single contrast esophagram.
[2021-08-05] MEDS: IPRATROPIUM-ALBUTEROL 3 ML NEB INHALATION PRN (16:15)
[2021-08-05] MEDS: MELATONIN 5 MG TABLET PO SCH (19:52)
[2021-08-05] MEDS: QUEtiapine 50 MG TAB PO SCH (19:52)
[2021-08-05] MEDS: ATORVASTATIN 20 MG TAB PO SCH (19:52)
--- NOTE | 2021-08-05 23:07 | PN ---
PROGRESS NOTE 50-year-old white female seen by psych and neuro both describes disorder, memory loss, versus drug-seeking behavior. Medications were limited on her. Discharge Adderall due to anxiety. Discharge pain control, says the pain meds did not work anyway. She needs a detention to live in. She can not take care of herself. Cardiovascular S1, S2. Lungs clear. GI soft. She says she cannot swallow but a barium swallow was totally normal. She says she cannot breathe, but she sat good on room air. Continue current treatments. Follow up next 24 to 48 hours for discharge. MMODL / IJN: [id number] /
[2021-08-06] MEDS: SYMBICORT 80-4.5 MCG INHALER INHALATION SCH ×2 (02:38→17:07)
[2021-08-06] MEDS: methylPREDNISolone SOD SUCCI 40 MG/ML 1 ML VIAL IV SCH ×2 (02:38→07:32)
[2021-08-06] MEDS: SODIUM CHLORIDE 0.9% 1,000 ML IV SCH ×3 (03:46→19:53)
[2021-08-06] MEDS: FUROSEMIDE 20 MG TAB PO SCH (07:31)
[2021-08-06] MEDS: SENNOSIDES 8.6 MG TAB PO SCH ×2 (07:31→19:53)
[2021-08-06] MEDS: PANTOPRAZOLE 40 MG TABLET PO SCH ×2 (07:31→17:17)
[2021-08-06] MEDS: CYANOCOBALAMIN 500 MCG TAB PO SCH (07:31)
[2021-08-06] MEDS: MULTIVITAMINS, THERA 1 EACH TAB PO SCH (07:31)
[2021-08-06] MEDS: POTASSIUM CHLORIDE ER 20 MEQ TAB.ER PO SCH (07:31)
[2021-08-06] MEDS: LORATADINE 10 MG TAB PO SCH (07:32)
[2021-08-06] MEDS: ASPIRIN 81 MG PO SCH (07:33)
[2021-08-06] MEDS: LIDOCAINE 5% PATCH TOPICAL SCH (07:33)
[2021-08-06] MEDS: ENOXAPARIN 40 MG/0.4 ML SYRINGE SQ SCH (07:33)
[2021-08-06] MEDS: FLUTICASONE 50MCG/SPRAY NASAL 16GM EA NOSTRIL SCH (07:34)
[2021-08-06] MEDS: IPRATROPIUM 0.5 MG/2.5 ML NEBU INHALATION SCH ×4 (07:51→19:41)
--- NOTE | 2021-08-06 10:24 | P.CNPUL ---
History of Present Illness Consult date: 08/05/21 Reason for consult: dyspnea, chest pain, COPD Chief complaint: Patient came into the hospital with chest pain or shortness of breath History of present illness: Patient seen and evaluated examined in her room, patient overall is a poor historian, patient came into the hospital with chest pain and shortness of breath off and on no cough or sputum production is present, patient also complained of weakness and paralysis, neurology has been following this patient, chest x-ray reviewed basically unremarkable no active infiltrate identified, labs significant for mild leukocytosis otherwise unremarkable chemistry is nor mal, d-dimer is normal, coronary, COVID-19 has been negative as well, currently patient is being treated with Tylenol given an aspirin and atorvastatin Lovenox nuclear sprays Lasix, Protonix, IV steroids and Seroquel Review of Systems All systems: negative Past Medical History Past Medical History: Chest Pain / Angina, COPD, CVA/TIA, Hyperlipidemia, Memory Impairment, Neurologic Disorder Additional Past Medical History / Comment(s): [facility]. Other hx: Pt has history of brain injury following fall down flight of stairs in 2010 and was comatose for 3 months, then when she regained consciousness she had a CVA with R sided paralysis/parasthes ia/decreased vision R eye/decreased hearing R ear/loss of sensation r inside of mouth-takes care with what food she eats/no longer has feelings of hunger/cannot taste or smell, pt denies ever having a seizure, hypothyroid, occasional pedal edema, occasional headaches, chronic back pain, cervical occipital neuritis, ataxia, vertigo. History of Any Multi-Drug Resistant Organisms: None Reported Past Surgical History: Section, Tonsillectomy, Tubal Ligation Additional Past Surgical History / Comment(s): 01/02/21 lumbar puncture, past trach/peg tube, pt thinks some kind of brain/skull surgery while comatose in 2010 at [facility]. Past Anesthesia/Blood Transfusion Reactions: No Reported Reaction Past Psychological History: Anxiety Additional Psychological History / Comment(s): Pt resides alone in an apartment. She has [facility] home care and is seen by [facility]. She uses a walker to ambulate. She has a nebulizer. She does not drive, a friend takes her places. Smoking Status: Current some day smoker Past Alcohol Use History: None Reported Additional Past Alcohol Use History / Comment(s): Pt states started smoking in 1989 and still sometimes smokes Past Drug Use History: None Reported - Past Family History Mother Family Medical History: Cancer Additional Family Medical History / Comment(s): Mother of cancer, pt does not know what type. Father Family Medical History: Cancer Additional Family Medical History / Comment(s): Father is alive and has had 3 different types of cancer but survived them all. Medications and Allergies Home Medications Medication Instructions Recorded Confirmed Type Aspirin EC [Ecotrin Low Dose] 81 mg PO DAILY 07/16/20 08/03/21 History Vitamin B Complex 1 cap PO DAILY 07/16/20 08/03/21 History Atorvastatin Calcium [Lipitor] 20 mg PO HS 10/13/20 08/03/21 History Nitroglycerin Sl Tabs [Nitrostat] 0.4 mg SL Q5M PRN 12/04/20 08/03/21 History Sennosides [Senokot] 8.6 mg PO BID 30 Days #60 tab 12/08/20 08/03/21 Rx Cyanocobalamin (Vitamin B-12) 1,000 mcg PO DAILY 02/11/21 08/03/21 History [Vitamin B-12] Fluticasone Propionate [Flonase 1 spray EA NOSTRIL DAILY 02/11/21 08/03/21 History Allergy Relief] Midodrine [ProAmatine] 5 mg PO TID 02/11/21 08/03/21 History Cetirizine HCl [Zyrtec] 10 mg PO DAILY 06/24/21 08/03/21 History Fluticasone/Umeclidin/Vilanter 1 puff INHALATION RT-DAILY 06/24/21 08/03/21 History [Trelegy Ellipta 200-62.5-25] Furosemide [Lasix] 20 mg PO DAILY 06/24/21 08/03/21 History Acetaminophen Tab [Tylenol] 650 mg PO Q6HR PRN tab 06/25/21 08/03/21 Rx Ipratropium Nebulized [Atrovent 0.5 mg INHALATION RT-QID 30 Days 06/25/21 08/03/21 Rx Nebulized 0.2 MG/ML] #120 ml Melatonin 5 mg PO HS tablet 06/25/21 08/03/21 Rx Pantoprazole [Protonix] 40 mg PO AC-BID 30 Days #60 tab 06/25/21 08/03/21 Rx Ibuprofen 800 mg PO Q6HR PRN #20 tablet 06/29/21 08/03/21 Rx Potassium Chloride ER [K-Dur 20] 20 meq PO DAILY #7 tab 06/29/21 08/03/21 Rx Calcium Carbonate/Vitamin D3 1 tab PO DAILY 07/25/21 08/03/21 History [Os-Eric 500-Vit D3 5 Mcg (200 Iu)] QUEtiapine [SEROquel] 50 mg PO HS 07/25/21 08/03/21 History Enoxaparin [Lovenox] 40 mg SQ DAILY each 08/05/21 Rx Allergies Allergy/AdvReac Type Severity Reaction Status Date / Time cat dander Allergy Rash/Hives Verified 08/03/21 07:37 tomato Allergy Rash/Hives Verified 08/03/21 07:37 codeine AdvReac Unknown Verified 08/03/21 07:37 Physical Exam Vitals: Vital Signs Temp Pulse Pulse Resp BP Pulse Ox 08/05/21 12:50 84 08/05/21 12:42 80 08/05/21 08:59 76 08/05/21 08:46 72 08/05/21 08:00 18 08/05/21 07:10 97.7 F 80 17 116/77 98 08/05/21 02:00 18 08/05/21 01:14 97.5 F L 70 18 124/83 96 08/04/21 19:32 18 08/04/21 18:54 98.1 F 83 17 121/73 93 L 08/04/21 16:23 78 08/04/21 16:14 97 08/04/21 16:12 75 08/04/21 14:59 97.8 F 73 18 117/72 98 Intake and Output 08/04/21 08/05/21 08/05/21 22:59 06:59 14:59 Intake Total 511 300 Balance 511 300 Intake: Oral 511 300 Other: Voiding Method Toilet Toilet Bedside Commode Bedside Commode # Voids 1 2 1 as below - Constitutional General appearance: average body habitus, disheveled, obese - EENT Eyes: EOMI, PERRLA ENT: hearing grossly normal Ears: bilateral: normal - Neck Carotids: bilateral: upstroke normal Thyroid: bilateral: enlarged - Respiratory Respiratory: bilateral: CTA - Cardiovascular Heart sounds: normal: S1, S2 - Neurologic Neurologic: focal deficits - Musculoskeletal Musculoskeletal: generalized weakness Results - Laboratory Findings CBC and BMP: 08/03/21 03:08 08/03/21 03:08 PT/INR, D-dimer PT 9.5 sec (9.0-12.0) 08/03/21 03:08 INR 0.9 (<1.2) 08/03/21 03:08 D-Dimer 0.44 mg/L FEU (<0.60) 08/03/21 03:08 Abnormal lab findings: Abnormal Labs 08/03/21 08/03/21 08/03/21 03:08 03:08 03:08 WBC 13.0 H RDW 15.8 H Neutrophils # 8.3 H APTT 21.5 L ALT 43 H Alkaline Phosphatase 138 H - Diagnostic Findings Chest x-ray: report reviewed, image reviewed (Finding as dictated above) Assessment and Plan Assessment: Acute COPD exacerbation Chest pain related to costochondritis Mood disorder depression Psychiatric disorder/somatoform disorder Plan: Continue bronchodilators and steroids continue supportive care awaiting psychological evaluation Time with Patient: Greater than 30
[2021-08-06] MEDS ORDERED: LACTATED RINGERS 1,000 ML IV ONE (10:28)
--- NOTE | 2021-08-06 10:29 | P.PN ---
Subjective Progress Note Date: 08/06/21 Principal diagnosis: Acute COPD exacerbation Chest pain related to costochondritis Mood disorder depression Psychiatric disorder/somatoform disorder 08/06/2021 Patient seen and evaluated examined during the rounds, continued to complain of intermittent chest pain shortness of breath however severity appears to improve, patient is being evaluated by neurology and psychiatry for somatoform disorder, Patient seen and evaluated examined in her room, patient overall is a poor historian, patient came into the hospital with chest pain and shortness of breath off and on no cough or sputum production is present, patient also complained of weakness and paralysis, neurology has been following this patient, chest x-ray reviewed basically unremarkable no active infiltrate identified, labs significant for mild leukocytosis otherwise unremarkable chemistry is normal, d-dimer is normal, coronary, COVID-19 has been negative as well, currently patient is being treated with Tylenol given an aspirin and atorvastatin Lovenox nuclear sprays Lasix, Protonix, IV steroids and Seroquel Objective - Vital Signs Vital signs: Vital Signs Temp 97.5 F L 08/06/21 10:20 Pulse 76 08/06/21 10:20 Resp 18 08/06/21 10:20 BP 123/73 08/06/21 10:20 Pulse Ox 97 08/06/21 10:20 Intake & Output 08/05/21 08/06/21 08/06/21 18:59 06:59 18:59 Intake Total 550 Output Total 0 Balance 550 Intake: Oral 550 Output: Emesis 0 Other: Voiding Method Toilet Bedside Commode # Voids 1 2 0 - Exam Constitutional General appearance: average body habitus, disheveled, obese - EENT Eyes: EOMI, PERRLA ENT: hearing grossly normal Ears: bilateral: normal - Neck Carotids: bilateral: upstroke normal Thyroid: bilateral: enlarged - Respiratory Respiratory: bilateral: CTA - Cardiovascular Heart sounds: normal: S1, S2 - Neurologic Neurologic: focal deficits - Musculoskeletal Musculoskeletal: generalized weakness - Labs CBC & Chem 7: 08/03/21 03:08 08/03/21 03:08 Assessment and Plan Assessment: Acute COPD exacerbation Chest pain related to costochondritis Mood disorder depression Psychiatric disorder/somatoform disorder History of traumatic brain injury Plan: Continue bronchodilators and steroids continue supportive care awaiting psychological evaluation Time with Patient: Greater than 30
--- NOTE | 2021-08-06 11:15 | P.PCN ---
Date of Procedure: 08/06/21 Procedure(s) Performed: PREOPERATIVE DIAGNOSIS: 1- Lumbar Degenerative Disc Diseases 2-Lumbar spondylosis with Facet arthropathy without myelopathy POSTOPERATIVE DIAGNOSIS: Same as preop diagnosis. PROCEDURE 1. Lumbar epidural steroid injection under fluoroscopic guidance at the L4-5 level. (Fluoroscopy imaging was available in radiology department) 2. Lumbar epidurogram. ANESTHESIA: Local with 1% lidocaine 3 ml and , moderate sedation with intravenous Versed 2 mg ,and fentanyle 100 Mcg EBL: Minimal PROCEDURE INDICATION: The patient with low back pain and radiculitis symptoms unresponsive to conservative treatment. Fluoroscopy was used to optimize visualization of the needle placement and to maximize safety. PROCEDURE DESCRIPTION / TECHNIQUE: The patient was seen and identified in the preoperative area. Risks, benefits, complications including but not limited to infections ,bleeding ,allergic reaction to the medications ,nerve damage and not complete pain releife , and alternatives were discussed with the patient. The patient agreed to proceed with the procedure and signed the consent. IV was started, and vital signs were stable. Patient was taken to the OR and time out was completed. The patient was placed in the prone position on procedure table and a pillow was placed under the abdomen to reduce lumbar lordosis. The lumbosacral area was prepped and draped in the usual sterile fashion.ere closely monitored during the procedure. C onscious sedation was used during the procedure to decrease patients anxiety. Vital signs was monitered during the entire procedure. Using anterior-posterior fluoroscopy, the L4-5 interlaminar space was identified and the skin over this site was marked and then infiltrated with 1% lidocaine subcutaneously. Subsequently, a 20-gauge Tuohy epidural needle was inserted and advanced toward the epidural space using the ``Loss of resistance technique and guided by AP and lateral fluoroscopy. The correct needle position in the epidural space was verified with the injection of 2 mL of the water soluble contrast dye Isovue 200 contrast and observing an excellent epidurogram with the epidural spread of the dye, after negative aspiration for blood and CSF and in the absence of paresthesias. Again after negative aspiration, a 6 ml mixture containing 80 mg of Depo-medrol , and 2 ml of preservative free Normal Saline, and 2 ml of preservative free lidocaine 1% solution was injected and a washout of epidurogram was seen. Needle was withdrawn intact, skin was cleansed, and bandages were applied. COMPLICATIONS: None DISPOSITION / PLANS: The patient was placed in a supine position and transferred to the recovery area in a stable condition for observation. There was no evidence of lower extremity motor or sensory deficit after the procedure. Patient was discharged from the recovery room after meeting discharge criteria. Home discharge instructions were given to the patient by the staff. The patient was reexamined prior to discharge. The patient will schedule a follow up in the clinic in 2-4 weeks. Patient can resume Lovenox 12 hours after the procedure
--- NOTE | 2021-08-06 11:25 | FL ---
EXAMINATION TYPE: FL guided pain mgmt statistic DATE OF EXAM: 08/06/2021 CLINICAL HISTORY: Low back pain. TECHNIQUE: Fluoroscopy. COMPARISON: None. FINDINGS: Fluoroscopic guidance was provided during pain relief procedure performed by Dr. Mason . A total of 3 seconds of fluoroscopic time was utilized during the procedure and 1 spot images are acquired. Single image acquired shows needle localization at L5 level with contrast injection. IMPRESSION: As Above.
[2021-08-06] MEDS: ACETAMINOPHEN TAB 325 MG TAB PO PRN (17:16)
[2021-08-06] MEDS: QUEtiapine 50 MG TAB PO SCH (19:53)
[2021-08-06] MEDS: ATORVASTATIN 20 MG TAB PO SCH (19:53)
[2021-08-06] MEDS: MELATONIN 5 MG TABLET PO SCH (19:53)
--- NOTE | 2021-08-07 00:41 | PN ---
PROGRESS NOTE [id number] white female underwent lumbar epidural injection by today. Hopefully this will help her pain, although she states her pain is severe despite lumbar epidural for lumbar degenerative disk disease and spondylosis. She passed her swallow eval. Discussed disorder with her. States she cannot live alone. She will have to go to an AFC home or a snf. CARDIOVASCULAR: S1, S2. LUNGS: Clear. GI: Soft. PSYCH: Fair mood and affect. ASSESSMENT: 1. disorder. 2. Encephalomalacia. 3. Chronic obstructive pulmonary disease. 4. Nicotine addiction. 5. Acute hypoxemic respiratory distress. Prognosis extremely guarded. She will need to go to an AFC home or a snf, as she is unable to live alone. MMODL / IJN: [id number] /
[2021-08-07] MEDS: SYMBICORT 80-4.5 MCG INHALER INHALATION SCH (03:16)
[2021-08-07] MEDS: IPRATROPIUM 0.5 MG/2.5 ML NEBU INHALATION SCH ×4 (07:35→21:03)
[2021-08-07] MEDS: ENOXAPARIN 40 MG/0.4 ML SYRINGE SQ SCH (09:43)
[2021-08-07] MEDS: SENNOSIDES 8.6 MG TAB PO SCH ×2 (09:43→20:15)
[2021-08-07] MEDS: FUROSEMIDE 20 MG TAB PO SCH (09:43)
[2021-08-07] MEDS: PANTOPRAZOLE 40 MG TABLET PO SCH ×2 (09:43→17:43)
[2021-08-07] MEDS: ASPIRIN 81 MG PO SCH (09:44)
[2021-08-07] MEDS: CYANOCOBALAMIN 500 MCG TAB PO SCH (09:44)
[2021-08-07] MEDS: SODIUM CHLORIDE 0.9% 1,000 ML IV SCH ×2 (09:44→19:19)
[2021-08-07] MEDS: MULTIVITAMINS, THERA 1 EACH TAB PO SCH (09:44)
[2021-08-07] MEDS: POTASSIUM CHLORIDE ER 20 MEQ TAB.ER PO SCH (09:44)
[2021-08-07] MEDS: LORATADINE 10 MG TAB PO SCH (09:44)
[2021-08-07] MEDS: FLUTICASONE 50MCG/SPRAY NASAL 16GM EA NOSTRIL SCH (09:45)
[2021-08-07] MEDS: LIDOCAINE 5% PATCH TOPICAL SCH (09:45)
[2021-08-07] MEDS: methylPREDNISolone 4 MG TAB TAPER PO SCH (09:46)
[2021-08-07 19:22] VITALS: RESP 16
[2021-08-07] MEDS: QUEtiapine 50 MG TAB PO SCH (20:15)
[2021-08-07] MEDS: MELATONIN 5 MG TABLET PO SCH (20:15)
[2021-08-07] MEDS: ATORVASTATIN 20 MG TAB PO SCH (20:15)
--- NOTE | 2021-08-07 22:54 | P.PN ---
Subjective Progress Note Date: 08/07/21 Principal diagnosis: Acute COPD exacerbation Chest pain related to costochondritis Mood disorder depression Psychiatric disorder/somatoform disorder 08/07/2021, patient seen and evaluated examined patient has been placed on tapering steroids, patient is status post lumbar epidural steroid injection and epidurogram 08/06/2021 Patient seen and evaluated examined during the rounds, continued to complain of intermittent chest pain shortness of breath however severity appears to improve, patient is being evaluated by neurology and psychiatry for somatoform disorder, Patient seen and evaluated examined in her room, patient overall is a poor historian, patient came into the hospital with chest pain and shortness of breath off and on no cough or sputum production is present, patient also complained of weakness and paralysis, neurology has been following this patient, chest x-ray reviewed basically unremarkable no active infiltrate identified, labs significant for mild leukocytosis otherwise unremarkable chemistry is normal, d-dimer is normal, coronary, COVID-19 has been negative as well, currently patient is being treated with Tylenol given an aspirin and atorvast atin Lovenox nuclear sprays Lasix, Protonix, IV steroids and Seroquel Objective - Vital Signs Vital signs: Vital Signs Temp 97.7 F 08/07/21 18:39 Pulse 68 08/07/21 19:49 Resp 16 08/07/21 18:39 BP 108/72 08/07/21 18:39 Pulse Ox 99 08/07/21 20:20 Intake & Output 08/07/21 08/07/21 08/08/21 06:59 18:59 06:59 Intake Total 200 450 Output Total 0 Balance 200 450 Intake: Oral 200 450 Output: Emesis 0 Other: Voiding Method Toilet Toilet Bedside Commode Bedside Commode # Voids 2 0 # Bowel Movements 1 - Exam Constitutional General appearance: average body habitus, disheveled, obese - EENT Eyes: EOMI, PERRLA ENT: hearing grossly normal Ears: bilateral: normal - Neck Carotids: bilateral: upstroke normal Thyroid: bilateral: enlarged - Respiratory Respiratory: bilateral: CTA - Cardiovascular Heart sounds: normal: S1, S2 - Neurologic Neurologic: focal deficits - Musculoskeletal Musculoskeletal: generalized weakness - Labs CBC & Chem 7: 08/03/21 03:08 08/03/21 03:08 Assessment and Plan Assessment: Back pain due to lumbar radiculopathy Acute COPD exacerbation Chest pain related to costochondritis Mood disorder depression Psychiatric disorder/somatoform disorder History of traumatic brain injury Plan: Pain control by pain service Continue bronchodilators and steroids continue supportive care awaiting psychological evaluation Time with Patient: Greater than 30
--- NOTE | 2021-08-07 23:07 | DS ---
DISCHARGE SUMMARY 50-year-old white female came with atypical chest pain similar to her prior costochondritis. She had difficulty swallowing. She had a normal barium swallow. She has severe pain in her lumbar spine for which she had a lumbar epidural yesterday. She will need PT, OT, and either ECF or AFC home. Neurology and Psychiatry saw her and diagnosed somatoform disorder. Her multiple treatments have been limited and she has been cleared by Cardiology a few times. She is breathing fine. She is eating fine. Continue her on Lovenox 40 mg daily as she potentially gets possibly a second epidural shot. She is on aspirin 81 mg daily, vitamin B complex daily, Lipitor 20 mg daily, nitro sublingual daily, Senokot b.i.d., ProAmatine 5 mg t.i.d., Lasix 20 daily, Trelegy inhaler 200/62.5/25 1 puff daily, Zyrtec 10 mg daily, Atrovent nebulized solution q.i.d., Melatonin 5 daily, Tylenol p.r.n., Protonix 40 b.i.d., BuSpar 10 b.i.d. CONDITION: Stable. PROGNOSIS: Guarded. Follow up with our [facility] for further epidurals. She will need to go to the ECF or AFC home. Await for transfer. MMODL / IJN: [id number] /
[2021-08-08] MEDS: SYMBICORT 80-4.5 MCG INHALER INHALATION SCH ×4 (03:57→11:16)
[2021-08-08] MEDS: SODIUM CHLORIDE 0.9% 1,000 ML IV SCH (04:46)
[2021-08-08 07:33] VITALS: BP 137/88; TEMP 98.3
[2021-08-08] MEDS: PANTOPRAZOLE 40 MG TABLET PO SCH (07:50)
[2021-08-08] MEDS: ASPIRIN 81 MG PO SCH (07:50)
[2021-08-08] MEDS: SENNOSIDES 8.6 MG TAB PO SCH (07:50)
[2021-08-08] MEDS: CYANOCOBALAMIN 500 MCG TAB PO SCH (07:50)
[2021-08-08] MEDS: MULTIVITAMINS, THERA 1 EACH TAB PO SCH (07:50)
[2021-08-08] MEDS: FUROSEMIDE 20 MG TAB PO SCH (07:50)
[2021-08-08] MEDS: LORATADINE 10 MG TAB PO SCH (07:50)
[2021-08-08] MEDS: ENOXAPARIN 40 MG/0.4 ML SYRINGE SQ SCH ×2 (07:51→07:55)
[2021-08-08] MEDS: POTASSIUM CHLORIDE ER 20 MEQ TAB.ER PO SCH (07:51)
[2021-08-08] MEDS: methylPREDNISolone 4 MG TAB TAPER PO SCH (07:51)
[2021-08-08] MEDS: FLUTICASONE 50MCG/SPRAY NASAL 16GM EA NOSTRIL SCH (07:56)
[2021-08-08] MEDS: IPRATROPIUM 0.5 MG/2.5 ML NEBU INHALATION SCH ×2 (08:11→11:21)
[2021-08-08 08:25] VITALS: PULSE 76
[2021-08-08] MEDS: LIDOCAINE 5% PATCH TOPICAL SCH (10:08)
== END 2021-08-08 11:34 | DRG 882 ==
LOC: EC 02:09 → 6NMEDSUR 04:13 → OBSVTOIN 08-05 14:56
PROVIDERS: ADMIT Family Medicine; ATTEND Family Medicine
PROC: 3E0R3BZ Introduction of Anesthetic Agent into Spinal Canal, Percutaneous Approach (ICD-10-PCS; 2021-08-06)
PROC: 3E0R33Z Introduction of Anti-inflammatory into Spinal Canal, Percutaneous Approach (ICD-10-PCS; principal; 2021-08-06 14:30)
DX: F45.9 Somatoform disorder, unspecified (principal); J44.1 Chronic obstructive pulmonary disease with (acute) exacerbation; I69.351 Hemiplegia and hemiparesis following cerebral infarction affecting right dominant side; M47.816 Spondylosis without myelopathy or radiculopathy, lumbar region; M51.36 Other intervertebral disc degeneration, lumbar region; F17.200 Nicotine dependence, unspecified, uncomplicated; G89.29 Other chronic pain; H91.91 Unspecified hearing loss, right ear; M79.7 Fibromyalgia; R06.03 Acute respiratory distress; G93.89 Other specified disorders of brain; M94.0 Chondrocostal junction syndrome [Tietze]; Z20.822 Contact with and (suspected) exposure to COVID-19; E78.5 Hyperlipidemia, unspecified; F32.9 Major depressive disorder, single episode, unspecified; F41.9 Anxiety disorder, unspecified; G62.9 Polyneuropathy, unspecified; Z87.820 Personal history of traumatic brain injury; H54.7 Unspecified visual loss; Z79.02 Long term (current) use of antithrombotics/antiplatelets; Z79.82 Long term (current) use of aspirin; Z79.899 Other long term (current) drug therapy; Z80.9 Family history of malignant neoplasm, unspecified
CPT/HCPCS: 36415; 62323; 71045; 74220; 80053; 83605; 83735; 83880; 84484; 85025; 85379; 85610; 85730; 87635; 93005; 94640; 94760; 96361; 96374; 96375; 99152; 99285

== ENCOUNTER → 2022-09-01 | Outpatient (CLI) | payer MEDICARE, OTHER ==
--- NOTE | 2022-09-03 07:36 | US ---
EXAMINATION TYPE: US arterial LE single level DATE OF EXAM: 09/01/2022 12:36 PM CLINICAL HISTORY: I70.213 CLAUDICATION. Patient had injury 11 years ago and multiple strokes, legs watts ve been numb for 11 years and is now developing purple, rash-like patches on her ankles, they do not hurt or itch. History of hypertension and TIA/CVA Doppler Waveforms: Right: Multiphasic Left: Multiphasic Ankle-Brachial Indices: Right: 1.1 Left: 1.0 Toe Brachial Indices: Right: 0.9 Left: 0.6 IMPRESSION: Normal study.
== END | disposition home or self-care (01) ==
LOC: RADUSWWP 12:02
PROVIDERS: ATTEND Family Medicine
DX: I70.213 Atherosclerosis of native arteries of extremities with intermittent claudication, bilateral legs (principal)
CPT/HCPCS: 93922

== ENCOUNTER → 2022-09-04 | Outpatient (CLI) | payer MEDICARE, OTHER ==
[2022-09-04 12:46] VITALS: BP 125/80; PULSE 61; RESP 18; TEMP 97.9
--- NOTE | 2022-09-04 14:46 | P.PAINPG ---
PQRS Measure Charge Sheet Comment: HISTORY OF PRESENT ILLNESS: 51 yr old female as a referral from Dr Bocanegra presents today w severe and chronic LBP secondary to DDD, spondylosis and facet arthropathy without myelopathy for evaluation. Pt states pain level is at 7 /10 in intensity, constant, localized in the L lower back, throbbing in character without radiation of pain. Pain is provoked by bending. Pain is alleviated by PT in 2019, home exercise as tolerated, CBD topical, repositioning and rest. PMH: Angina, COPD, CVA/TIA, Memory Impairment, Neurologic Disorder, Anxiety PSH: Section, Tonsillectomy, Tubal Ligation, Cerebral Trauma s/p Fall w Coma x3 mo, CVA w R Paresthesia/ Paralysis, Hx of PEG/Trach Tube, Possible Cerebral Surgery while hospitalized at [facility] SH: Daily tobacco use, +Vape Use, No ETOH abuse, No illicit drug use. FH: Mo- CA. Fa- CA (3 types) All: See list Meds: See list REVIEW OF ORGAN SYSTEMS: CONSTITUTIONAL: No fevers or chills. No recent weight loss. NEUROLOGICAL: + numbness and tingling along the distal extremities. No seizure disorders or headaches. MUSCULOSKELETAL: + pain PSYCHIATRIC: Denies current depression or suicidal thoughts. Physical Examinations : Constitutional : Cooperative , not in acute distress . Neurologic : Cranial nerve II to XII intact. No focal neurological deficits. Psychiatric : alert & oriented x 3. Matching mood & appropriate affect. Judgment & insight intact. Musculoskeletal : Cervical Spine Motor strength in the deltoid and biceps: Normal right side. Normal Left side Motor strength biceps and the wrist extensors: Normal right side . Normal left side Motor strength in the triceps muscle: Normal right side. Normal left side Deep tendon reflexes: Normal at the biceps. Normal at Brachioradialis. Normal at triceps Vertebral body tenderness to deep palpation over Cervical facet loading test: positive bilaterally Spurling test: positive bilaterally Neck distraction test: positive bilaterally Sharifa sign: positive bilaterally Lumbar spine Motor strength lower extremities ,thigh and legs 5/5 Right side , 5/5 Left side Deep tendon reflexes : Normal Knee Jerk. Normal Ankle Jerk Vertebral body tenderness over L3 Lumbar facet Loading Test: positive Right / positive Left Range of motion of the lumbar spine Flexion 30 degrees, extension 10 degrees Straight Leg Raise test: Left/ Right positive at degree Raysa test: positive right / positive left. Severe tenderness over the Sacroiliac joint on the Right / Left sides Gaenslen test: positive bilaterally Seated flexion test: positive bilaterally. Sacral spine : Severe tenderness over the Sacroiliac joint: right side / left side Range of motion: Flexion of the lumbar spine <60 degrees Range of motion: Extension of the lumbar spine <20 degrees Gaenslen's Test positive Cuate's Test positive Raysa test: positive right side / left side Thigh Thrust Test Sacral Thrust Test Imaging: Computed tomography scan of the lumbar spine from 07/16/20 reviewed Assessment/ Plan : Lumbar DDD Recommendation of DARCY L paramedian L3-L4. May need a series, up to 3 within a 6 mo period, for optimal pain relief. Risks, benefits of procedure discussed and patient verbalized understanding. Admits aspirin or anti- coagulant use or medical history of diabetes. Protocol for discontinuation/ continuation of medications joel procedure discussed. All questions answered. I have spent greater than 30 minutes on patient care today. Dr Mason was available by phone for the evaluation of this patient. The time was used to review the medical records including relevant urine studies and Prescription history (MAPs), review of the available imaging, evaluation and examination of the patient, coordination of care with the medical staff and if applicable referring physicians, as well as creation of the medical record - Pain Location Lower Back Non-Pharmacological Interventions: Home Exercise, Inactivity, Physical Therapy, Position/Reposition, Sitting, Stretching Pharmacological Interventions: PRN Medication, Topical Medication PQRS Narrative: Smoking Status Current every day smoker Home Medications: Ambulatory Orders Aspirin EC [Ecotrin Low Dose] 81 mg PO DAILY 07/16/20 Vitamin B Complex 1 cap PO DAILY 07/16/20 Atorvastatin Calcium [Lipitor] 20 mg PO HS 10/13/20 Nitroglycerin Sl Tabs [Nitrostat] 0.4 mg SL Q5M PRN 12/04/20 Sennosides [Senokot] 8.6 mg PO BID 30 Days #60 tab 12/08/20 Cyanocobalamin (Vitamin B-12) [Vitamin B-12] 1,000 mcg PO DAILY 02/11/21 Fluticasone Propionate [Flonase Allergy Relief] 1 spray EA NOSTRIL DAILY 02/11/21 Midodrine [ProAmatine] 5 mg PO TID 02/11/21 Cetirizine HCl [Zyrtec] 10 mg PO DAILY 06/24/21 Fluticasone/Umeclidin/Vilanter [Trelegy Ellipta 200-62.5-25] 1 puff INHALATION RT-DAILY 06/24/21 Furosemide [Lasix] 20 mg PO DAILY 06/24/21 Acetaminophen Tab [Tylenol] 650 mg PO Q6HR PRN tab 06/25/21 Ipratropium Nebulized [Atrovent Nebulized 0.2 MG/ML] 0.5 mg INHALATION RT-QID 30 Days #120 ml 06/25/21 Melatonin 5 mg PO HS tablet 06/25/21 Pantoprazole [Protonix] 40 mg PO AC-BID 30 Days #60 tab 06/25/21 Ibuprofen 800 mg PO Q6HR PRN #20 tablet 06/29/21 Potassium Chloride ER [K-Dur 20] 20 meq PO DAILY #7 tab 06/29/21 Calcium Carbonate/Vitamin D3 [Os-Eric 500-Vit D3 5 Mcg (200 Iu)] 1 tab PO DAILY 07/25/21 QUEtiapine [SEROquel] 50 mg PO HS 07/25/21 Enoxaparin [Lovenox] 40 mg SQ DAILY each 08/05/21 Controlled Substance Measures - Controlled Substance Measures Is patient prescribed a controlled substance at discharge?: No
== END ==
LOC: PNWHC3 12:05
PROVIDERS: ATTEND Specialist
DX: M47.816 Spondylosis without myelopathy or radiculopathy, lumbar region (principal); M51.36 Other intervertebral disc degeneration, lumbar region; J44.9 Chronic obstructive pulmonary disease, unspecified; F41.9 Anxiety disorder, unspecified; E11.9 Type 2 diabetes mellitus without complications; F17.200 Nicotine dependence, unspecified, uncomplicated; Z79.82 Long term (current) use of aspirin; Z79.01 Long term (current) use of anticoagulants; Z79.51 Long term (current) use of inhaled steroids; Z91.09 Other allergy status, other than to drugs and biological substances; Z86.73 Personal history of transient ischemic attack (TIA), and cerebral infarction without residual deficits; Z88.5 Allergy status to narcotic agent; Z91.018 Allergy to other foods
CPT/HCPCS: 99211

== ENCOUNTER 2022-10-09 11:46 | Day surgery (SDC) | payer MEDICARE, OTHER ==
[2022-10-09] MEDS ORDERED: LACTATED RINGERS 1,000 ML IV SCH (12:46)
[2022-10-09] MEDS ORDERED: LIDOCAINE 1% (10MG/ML) FOR IV START INTRADERMA PRN (12:46)
[2022-10-09 12:59] VITALS: BP 119/83; PULSE 89; RESP 18; TEMP 98.5
[2022-10-09] MEDS ORDERED: LACTATED RINGERS 1,000 ML IV ONE (12:59)
--- NOTE | 2022-10-09 13:23 | P.PN ---
Progress Note - Text Progress Note Date: 10/09/22 Description scheduled to have lumbar epidural steroid injection, she is currently taking Eliquis daily, in the preop holding area I found out that the patient did not stop the ELIQUIS and the last dose was taken yesterday , and as per as there are guidelines we should hold this medication for 72 hours before we can proceed with a lumbar epidural steroid injection, for this reason reason, the procedure was canceled for today ,and the patient will be rescheduled for the procedure,
== END 2022-10-09 13:23 | disposition home or self-care (01) ==
LOC: ORPAIN 11:46
PROVIDERS: ATTEND Specialist
DX: Z53.09 Procedure and treatment not carried out because of other contraindication (principal)

== ENCOUNTER 2022-10-14 07:34 | Day surgery (SDC) | payer MEDICARE, OTHER ==
[2022-10-14] MEDS: LACTATED RINGERS 1,000 ML IV SCH ×2 (08:12→08:41)
[2022-10-14] MEDS ORDERED: LACTATED RINGERS 1,000 ML IV SCH (08:13)
[2022-10-14] MEDS ORDERED: LIDOCAINE 1% (10MG/ML) FOR IV START INTRADERMA PRN (08:13)
[2022-10-14 08:20] VITALS: TEMP 97.6
[2022-10-14] MEDS ORDERED: methylPREDNISolone ACETATE 80 MG/ML 1 ML VIAL ONE (08:43)
[2022-10-14] MEDS ORDERED: fentaNYL (PF) 50 MCG/ML 2 ML AMP ONE (08:43)
[2022-10-14] MEDS ORDERED: MIDAZOLAM 2 MG/2 ML VIAL ONE (08:43)
[2022-10-14] MEDS ORDERED: IOPAMIDOL M200 10 ML VIAL ONE (08:43)
--- NOTE | 2022-10-14 08:53 | P.PCN ---
Date of Procedure: 10/14/22 Procedure(s) Performed: PREOPERATIVE DIAGNOSIS: 1- Lumbar Degenerative Disc Diseases 2-Lumbar spondylosis with Facet arthropathy without myelopathy POSTOPERATIVE DIAGNOSIS: Same as preop diagnosis. PROCEDURE 1. Lumbar epidural steroid injection under fluoroscopic guidance at the L3-4 level. (Fluoroscopy imaging was available in radiology department) 2. Lumbar epidurogram. ANESTHESIA: Local with 1% lidocaine 3 ml and , moderate sedation with intravenous Versed 2 mg ,and fentanyle 50 Mcg Anesthesia start time 0 844. end time 0 849 EBL: Minimal PROCEDURE INDICATION: The patient with low back pain and radiculitis symptoms unresponsive to conservative treatment. Fluoroscopy was used to optimize visualization of the needle placement and to maximize safety. PROCEDURE DESCRIPTION / TECHNIQUE: The patient was seen and identified in the preoperative area. Risks, benefits, complications including but not limited to infections ,bleeding ,allergic reaction to the medications ,nerve damage and not complete pain releife , and alternatives were discussed with the patient. The patient agreed to proceed with the procedure and signed the consent. IV was started, and vital signs were stable. Patient was taken to the OR and time out was completed. The patient was placed in the prone position on procedure table and a pillow was placed under the abdomen to reduce lumbar lordosis. The lumbosacral area was prepped and draped in the usual sterile fashion.ere closely monitored during the procedure. Conscious sedation was used during the procedure to decrease patients anxiety. Vital signs was monitered during the entire procedure. Using anterior-posterior fluoroscopy, the L3-4 interlaminar space was identified and the skin over this site was marked and then infiltrated with 1% lidocaine subcutaneously. Subsequently, a 20-gauge Tuohy epidural needle was inserted and advanced toward the epidural space using the ``Loss of resistance technique and guided by AP and lateral fluoroscopy. The correct needle position in the epidural space was verified with the injection of 2 mL of the water soluble contrast dye Isovue 200 contrast and observing an excellent epidurogram with the epidural spread of the dye, after negative aspiration for blood and CSF and in the absence of paresthesias. Again after negative aspiration, a 6 ml mixture containing 80 mg of Depo-medrol , and 2 ml of preservative free Normal Saline, and 2 ml of preservative free lidocaine 1% solution was injected and a washout of epidurogram was seen. Needle was withdrawn intact, skin was cleansed, and bandages were applied. COMPLICATIONS: None DISPOSITION / PLANS: The patient was placed in a supine position and transferred to the recovery area in a stable condition for observation. There was no evidence of lower extremity motor or sensory deficit after the procedure. Patient was discharged from the recovery room after meeting discharge criteria. Home discharge instructions were given to the patient by the staff. The patient was reexamined prior to discharge. The patient will schedule a follow up in the clinic in 2-4 weeks. Patient held Eliquis for 72 hours before the procedure
[2022-10-14] MEDS ORDERED: IV FLUID CONTINUATION 1,000 ML IV ONE (08:57)
[2022-10-14 09:09] VITALS: RESP 16
[2022-10-14 09:39] VITALS: BP 104/68; PULSE 70
--- NOTE | 2022-10-14 10:33 | FL ---
EXAMINATION TYPE: FL guided pain mgmt statistic DATE OF EXAM: 10/14/2022 FLUOROSCOPY Fluoroscopy time of 4 seconds was used during lumbar epidural steroid injection. 1 image/s document/ s the procedure.
== END 2022-10-14 09:43 | disposition home or self-care (01) ==
LOC: ORPAIN 07:34
PROVIDERS: ATTEND Specialist
DX: M51.16 Intervertebral disc disorders with radiculopathy, lumbar region (principal); M47.26 Other spondylosis with radiculopathy, lumbar region; I25.10 Atherosclerotic heart disease of native coronary artery without angina pectoris; Z88.5 Allergy status to narcotic agent; Z91.048 Other nonmedicinal substance allergy status; Z79.01 Long term (current) use of anticoagulants
CPT/HCPCS: 62323; J2250; J1040; J3010; Q9966

== ENCOUNTER → 2023-01-01 | Outpatient (CLI) | payer MEDICARE, OTHER ==
--- NOTE | 2023-01-01 11:17 | P.PN ---
Subjective Progress Note Date: 01/01/23 A 51 yr old female with a history of severe and chronic LBP secondary to lumbar DDD and spondylosis with facet arthropathy without myelopathy presents today for evaluation s/p DARCY L4-5 patient reported that she get excellent pain relief s/p procedure. She is able to ambulate without any pain, denies any motor or sensory deficit. Interventional pain procedures completed include LESIs Patient denies any side effects of the medication(s), denies excessive drowsiness or sleepiness, denies suicidal ideation and reports that the current pain medication is helping to control the pain and improve activities of daily living. Patient denies any motor or sensory deficits. Patient denies any fever or night sweats, denies any change in the bowel movements or urination. Physical Examination: -Constitutional: Cooperative. Not in acute distress . - Neurologic: Cranial nerve II to XII intact. No focal neurological deficits. - Psychatric: Alert & oriented x 3. Matching mood & appropriate affect. Judgment and insight intact. - Musculoskeletal: no Motor or sensory deficit Assessment and plan: Chronic LBP secondary to lumbar DDD, spondylosis with facet arthropathy without myelopathy pain improved after DARCY L4-L5 #2. Patient will she will follow up in the pain clinic when necessary PQRS Narrative: Smoking Status Current every day smoker Hx Alcohol Use (MH) No Home Medications: Ambulatory Orders Aspirin EC [Ecotrin Low Dose] 81 mg PO DAILY 07/16/20 Atorvastatin Calcium [Lipitor] 20 mg PO HS 10/13/20 Fluticasone/Umeclidin/Vilanter [Trelegy Ellipta 200-62.5-25] 1 puff INHALATION RT-DAILY 06/24/21 Melatonin 5 mg PO HS tablet 06/25/21 ARIPiprazole [Abilify] 1 tab PO DAILY 10/06/22 Apixaban [Eliquis] 5 mg PO DAILY 10/06/22 Clotrimazole/Betameth Cream [Lotrisone] 1 applicator .ROUTE DAILY 10/06/22 Ferrous Sulfate [Feosol] 1 tab PO DAILY 10/06/22 HYDROcodone/APAP 5-325MG [Hellier 5-325] 1 tab PO Q6H PRN 10/06/22 Ibuprofen 600 mg PO Q6HR PRN 10/06/22 Terbinafine [LamISIL] 1 dose PO DAILY 10/06/22 Viloxazine HCl [Qelbree] 200 mg PO DAILY 10/06/22 lamoTRIgine [LaMICtal] 25 mg PO DAILY 10/06/22 lamoTRIgine [LaMICtal] 100 mg PO DAILY 10/06/22 - Controlled Substance Measures Is patient prescribed a controlled substance at discharge?: No Objective - Vital Signs Vital signs: Intake & Output 12/31/22 01/01/23 01/01/23 18:59 06:59 18:59 Weight 113.398 kg
[2023-01-01 11:18] VITALS: BP 108/74; PULSE 73; RESP 18; TEMP 98.6
== END ==
LOC: PNWHC3 10:42
PROVIDERS: ATTEND Specialist
DX: M51.36 Other intervertebral disc degeneration, lumbar region (principal); M47.817 Spondylosis without myelopathy or radiculopathy, lumbosacral region; G89.29 Other chronic pain; F17.200 Nicotine dependence, unspecified, uncomplicated; Z79.01 Long term (current) use of anticoagulants; Z79.82 Long term (current) use of aspirin; Z88.5 Allergy status to narcotic agent; Z91.018 Allergy to other foods; Z91.048 Other nonmedicinal substance allergy status
CPT/HCPCS: 99211

== ENCOUNTER 2023-04-13 11:56 | Emergency (ER) | payer MEDICARE, OTHER ==
[2023-04-13 12:00] VITALS: TEMP 98.6
[2023-04-13 13:18] LABS: Basophils % (A) 0 %; Eosinophils # (A) 0.2 k/uL (0-0.7); Eosinophils % (A) 2 %; HCT 38.9 % (34.0-46.0); HGB 13.2 gm/dL (11.4-16.0); Lymphocytes # (A) 1.7 k/uL (1.0-4.8); Lymphocytes % (A) 23 %; MCH 32.4 pg (25.0-35.0); MCHC 33.8 g/dL (31.0-37.0); MCV 95.7 fL (80.0-100.0); Mean Platelet Volume 7.9; Monocytes # (A) 0.2 k/uL (0-1.0); Monocytes % (A) 3 %; Neutrophils # (A) 5.3 k/uL (1.3-7.7); Neutrophils % (A) 71 %; Platelet Count 204 k/uL (150-450); RBC 4.07 m/uL (3.80-5.40); RDW 13.7 % (11.5-15.5); WBC 7.4 k/uL (3.8-10.6)
--- NOTE | 2023-04-13 13:25 | ED ---
General Adult HPI - General Chief complaint: Weakness Stated complaint: sob Time Seen by Provider: 04/13/23 12:00 Source: patient, RN notes reviewed, old records reviewed Mode of arrival: ambulatory Limitations: no limitations - History of Present Illness Initial comments: This is a 52-year-old female presents emergency Department complaining of generalized weakness and a headache that she says is not really a headache it's more lightheadedness but she describes it on top of her head. Patient states she's taken all of her medications today. Patient states she has right-sided paralysis from an injury many years ago. Patient denies any focal weakness worsened. Patient denies any fever chills. Patient denies any chest pain palpitations or difficulty breathing. Patient with any abdominal pain patient denies nausea vomiting diarrhea. - Related Data Home Medications Medication Instructions Recorded Confirmed Atorvastatin Calcium [Lipitor] 20 mg PO HS 10/13/20 04/13/23 Fluticasone/Umeclidin/Vilanter 1 puff INHALATION RT-DAILY 06/24/21 04/13/23 [Trelegy Ellipta 200-62.5-25] ARIPiprazole [Abilify] 5 mg PO HS 10/06/22 04/13/23 Apixaban [Eliquis] 5 mg PO BID 10/06/22 04/13/23 Ibuprofen 600 mg PO BID PRN 10/06/22 04/13/23 Terbinafine [LamISIL] 250 mg PO DAILY 10/06/22 04/13/23 Nitroglycerin Sl Tabs [Nitrostat] 0.4 mg SUBLINGUAL Q5M PRN 11/24/22 04/13/23 Dextroamphetamine/Amphetamine 10 mg PO BID@0900,1300 04/13/23 04/13/23 [Adderall] Spironolactone [Aldactone] 50 mg PO DAILY 04/13/23 04/13/23 Yuperli 175mcg/3ml Solution 175 mcg INHALATION RT-DAILY 04/13/23 04/13/23 Allergies Allergy/AdvReac Type Severity Reaction Status Date / Time cat dander Allergy Rash/Hives Verified 04/13/23 13:31 tomato Allergy Rash/Hives Verified 04/13/23 13:31 codeine AdvReac Unknown Verified 04/13/23 13:31 Review of Systems ROS Statement: Those systems with pertinent positive or pertinent negative responses have been documented in the HPI. ROS Other: All systems not noted in ROS Statement are negative. Past Medical History Past Medical History: Chest Pain / Angina, COPD, CVA/TIA, Hyperlipidemia, Memory Impairment, Neurologic Disorder Additional Past Medical History / Comment(s): Pt recently admitted to [facility] on 12/31/20 with back pain. 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 History of Any Multi-Drug Resistant Organisms: None Reported Past Surgical History: Section, Tonsillectomy, Tubal Ligation Additional Past Surgical History / Comment(s): 01/02/21 lumbar puncture, past trach/peg tube, pt thinks some kind of brain/skull surgery while comatose in 2010 at [facility]. Past Anesthesia/Blood Transfusion Reactions: No Reported Reaction Past Psychological History: Anxiety Smoking Status: Current some day smoker, Vaper Past Alcohol Use History: None Reported Past Drug Use History: Marijuana - Past Family History Mother Family Medical History: Cancer Additional Family Medical History / Comment(s): Mother of cancer, pt does not know what type. Father Family Medical History: Cancer Additional Family Medical History / Comment(s): . General Exam - General Exam Comments Initial Comments: GENERAL: Patient is well-developed and well-nourished. Patient is nontoxic and well- hydrated and is in mild distress. ENT: Neck is soft and supple. No significant lymphadenopathy is noted. Oropharynx is clear. Moist mucous membranes. Neck has full range of motion without eliciting any pain. EYES: The sclera were anicteric and conjunctiva were pink and moist. Extraocular movements were intact and pupils were equal round and reactive to light. Eyelids were unremarkable. PULMONARY: Unlabored respirations. Good breath sounds bilaterally. No audible rales rhonchi or wheezing was noted. CARDIOVASCULAR: There is a regular rate and rhythm without any murmurs gallops or rubs. ABDOMEN: Soft and nontender with normal bowel sounds. SKIN: Skin is clear with no lesions or rashes and otherwise unremarkable. NEUROLOGIC: Patient is alert and oriented x3. Cranial nerves II through XII are grossly intact. Right arm or right leg weakness Normal speech, volume and content. Symmetrical smile. MUSCULOSKELETAL: Patient has right leg and right arm weakness which is chronic. LYMPHATICS: No significant lymphadenopathy is noted PSYCHIATRIC: Normal psychiatric evaluation. Limitations: no limitations Course Vital Signs 04/13/23 04/13/23 04/13/23 11:57 13:30 14:00 Temperature 98.6 F Pulse Rate 85 70 69 Respiratory 18 16 15 Rate Blood Pressure 110/74 127/79 118/83 O2 Sat by Pulse 95 96 96 Oximetry Medical Decision Making - Medical Decision Making EKG is interpreted by myself EKG shows a sinus rhythm at 82 bpm UT interval is 96 QT interval 270 QT interval 359 QTC is 398. Was pt. sent in by a medical professional or institution (, PA, NURSERY TEACHER, urgent care, hospital, or skilled nursing...) When possible be specific @ -No Did you speak to anyone other than the patient for history (EMS, parent, family, police, friend...)? What history was obtained from this source @ -No Did you review nursing and triage notes (agree or disagree)? Why? @ -I reviewed and agree with nursing and triage notes Were old charts reviewed (outside hosp., previous admission, EMS record, old EKG, old radiological studies, urgent care reports/EKG's, skilled nursing records)? Report findings @ -No old charts were reviewed Differential Diagnosis (chest pain, altered mental status, abdominal pain women, abdominal pain men, vaginal bleeding, weakness, fever, dyspnea, syncope, he adache, dizziness, GI bleed, back pain, seizure, CVA, palpatations, mental health, musculoskeletal)? @ -Differential Weakness: Hypoglycemia, shock, sepsis, hyponatremia, anemia, infection, MD, ETOH, adverse medicine reaction, overdose, stroke, this is not meant to be an all-inclusive list. EKG interpreted by me (3pts min.). @ -As above X-rays interpreted by me (1pt min.). @ -Chest x-ray shows no acute abnormality CT interpreted by me (1pt min.). @ -CT of the brain shows no acute abnormality U/S interpreted by me (1pt. min.). @ -None done What testing was considered but not performed or refused? (CT, X-rays, U/S, labs)? Why? @ -None What meds were considered but not given or refused? Why? @ -None Did you discuss the management of the patient with other professionals (professionals i.e. Dr., PA, NURSERY TEACHER, lab, RT, psych nurse, social media assistant, content administrator, teacher, emergency response officer, egg caser)? Give summary @ -No Was smoking cessation discussed for >3mins.? @ -No Was critical care preformed (if so, how long)? @ -No Were there social determinants of health that impacted care today? How? (Homelessness, low income, unemployed, alcoholism, drug addiction, transportation, low edu. Level, literacy, decrease access to med. care, care home, rehab)? @ -No Was there de-escalation of care discussed even if they declined (Discuss DNR or withdrawal of care, Hospice)? DNR status @ -No What co-morbidities impacted this encounter? (DM, HTN, Smoking, COPD, CAD, Cancer, CVA, ARF, Chemo, Hep., AIDS, mental health diagnosis, sleep apnea, morbid obesity)? @ -None Was patient admitted / discharged? Hospital course, mention meds given and route, prescriptions, significant lab abnormalities, going to OR and other perti ne info. @ -Patient's main complaint seems to be the fact that she damaged her glasses and she has not seen well so she's getting a headache and she can't get around is good show I think she was looking for some help because she was questioning how she is going to be able to get around without having good glasses. Patient was given Excedrin for the headache as well as Toradol and she was feeling better and she was making arrangements to get home and try to make arrangements kidney glasses. Undiagnosed new problem with uncertain prognosis? @ -No Drug Therapy requiring intensive monitoring for toxicity (Heparin, Nitro, Insulin, Cardizem)? @ -No Were any procedures done? @ -No Diagnosis/symptom? @ -Weakness Acute, or Chronic, or Acute on Chronic? @ -Acute Uncomplicated (without systemic symptoms) or Complicated (systemic symptoms)? @ -Uncomplicated Side effects of treatment? @ -No Exacerbation, Progression, or Severe Exacerbation? @ -No Poses a threat to life or bodily function? How? (Chest pain, USA, MD, pneumonia, PE, COPD, DKA, ARF, appy, cholecystitis, CVA, Diverticulitis, Homicidal, Suicidal, threat to staff... and all critical care pts) @ -No Diagnosis/symptom? @ -Headache Acute, or Chronic, or Acute on Chronic? @ -Acute Uncomplicated (without systemic symptoms) or Complicated (systemic symptoms)? @ -Uncomplicated Side effects of treatment? @ -none Exacerbation, Progression, or Severe Exacerbation] @ -no Poses a threat to life or bodily function? @ -no - Lab Data Result diagrams: 04/13/23 13:03 04/13/23 13:03 Lab Results 04/13/23 04/13/23 04/13/23 Range/Units 13:03 13:03 13:03 WBC 7.4 (3.8-10.6) k/uL RBC 4.07 (3.80-5.40) m/uL Hgb 13.2 (11.4-16.0) gm/dL Hct 38.9 (34.0-46.0) % MCV 95.7 (80.0-100.0) fL MCH 32.4 (25.0-35.0) pg MCHC 33.8 (31.0-37.0) g/dL RDW 13.7 (11.5-15.5) % Plt Count 204 (150-450) k/uL MPV 7.9 Neutrophils % 71 % Lymphocytes % 23 % Monocytes % 3 % Eosinophils % 2 % Basophils % 0 % Neutrophils # 5.3 (1.3-7.7) k/uL Lymphocytes # 1.7 (1.0-4.8) k/uL Monocytes # 0.2 (0-1.0) k/uL Eosinophils # 0.2 (0-0.7) k/uL Basophils # 0.0 (0-0.2) k/uL PT 9.7 (9.0-12.0) sec INR 0.9 (<1.2) APTT 25.5 (22.0-30.0) sec Sodium (137-145) mmol/L Potassium (3.5-5.1) mmol/L Chloride (98-107) mmol/L Carbon Dioxide (22-30) mmol/L Anion Gap mmol/L BUN (7-17) mg/dL Creatinine (0.52-1.04) mg/dL Est GFR (CKD-EPI)AfAm (>60 ml/min/1.73 sqM) Est GFR (CKD-EPI)NonAf (>60 ml/min/1.73 sqM) Glucose (74-99) mg/dL Plasma Lactic Acid Tin (0.7-2.0) mmol/L Calcium (8.4-10.2) mg/dL Magnesium (1.6-2.3) mg/dL Total Bilirubin (0.2-1.3) mg/dL AST (14-36) U/L ALT (4-34) U/L Alkaline Phosphatase (38-126) U/L Troponin I (0.000-0.034) ng/mL Total Protein (6.3-8.2) g/dL Albumin (3.5-5.0) g/dL Urine Color Yellow Urine Appearance Clear (Clear) Urine pH 6.0 (5.0-8.0) Ur Specific Lorimor 1.015 (1.001-1.035) Urine Protein Negative (Negative) Urine Glucose (UA) Negative (Negative) Urine Ketones Negative (Negative) Urine Blood Negative (Negative) Urine Nitrite Negative (Negative) Urine Bilirubin Negative (Negative) Urine Urobilinogen 2.0 (<2.0) mg/dL Ur Leukocyte Esterase Negative (Negative) 04/13/23 04/13/23 04/13/23 Range/Units 13:03 13:03 13:03 WBC (3.8-10.6) k/uL RBC (3.80-5.40) m/uL Hgb (11.4-16.0) gm/dL Hct (34.0-46.0) % MCV (80.0-100.0) fL MCH (25.0-35.0) pg MCHC (31.0-37.0) g/dL RDW (11.5-15.5) % Plt Count (150-450) k/uL MPV Neutrophils % % Lymphocytes % % Monocytes % % Eosinophils % % Basophils % % Neutrophils # (1.3-7.7) k/uL Lymphocytes # (1.0-4.8) k/uL Monocytes # (0-1.0) k/uL Eosinophils # (0-0.7) k/uL Basophils # (0-0.2) k/uL PT (9.0-12.0) sec INR (<1.2) APTT (22.0-30.0) sec Sodium 141 (137-145) mmol/L Potassium 3.6 (3.5-5.1) mmol/L Chloride 109 H (98-107) mmol/L Carbon Dioxide 26 (22-30) mmol/L Anion Gap 6 mmol/L BUN 9 (7-17) mg/dL Creatinine 0.53 (0.52-1.04) mg/dL Est GFR (CKD-EPI)AfAm >90 (>60 ml/min/1.73 sqM) Est GFR (CKD-EPI)NonAf >90 (>60 ml/min/1.73 sqM) Glucose 128 H (74-99) mg/dL Plasma Lactic Acid Tin 1.5 (0.7-2.0) mmol/L Calcium 8.5 (8.4-10.2) mg/dL Magnesium 2.1 (1.6-2.3) mg/dL Total Bilirubin 0.2 (0.2-1.3) mg/dL AST 28 (14-36) U/L ALT 29 (4-34) U/L Alkaline Phosphatase 82 (38-126) U/L Troponin I <0.012 (0.000-0.034) ng/mL Total Protein 5.8 L (6.3-8.2) g/dL Albumin 3.4 L (3.5-5.0) g/dL Urine Color Urine Appearance (Clear) Urine pH (5.0-8.0) Ur Specific Lorimor (1.001-1.035) Urine Protein (Negative) Urine Glucose (UA) (Negative) Urine Ketones (Negative) Urine Blood (Negative) Urine Nitrite (Negative) Urine Bilirubin (Negative) Urine Urobilinogen (<2.0) mg/dL Ur Leukocyte Esterase (Negative) Disposition Clinical Impression: Headache, Weakness Disposition: HOME SELF-CARE Condition: Good Instructions (If sedation given, give patient instructions): Weakness (ED), Viral Meningitis (ED), Acute Headache (ED) Is patient prescribed a controlled substance at d/c from ED?: No Referrals: Chris Bocanegra MD [Primary Care Provider] - 1-2 days Time of Disposition: 16:09
[2023-04-13 13:29] LABS: INR 0.9 (<1.2); Partial Thromboplastin Time 25.5 sec (22.0-30.0); Prothrombin Time 9.7 sec (9.0-12.0)
[2023-04-13 13:34] LABS: ALT 29 U/L (4-34); AST 28 U/L (14-36); African American GFR (CKD) >90 (>60 ml/min/1.73 sqM); Albumin 3.4 g/dL (3.5-5.0); Alkaline Phosphatase 82 U/L (38-126); Anion Gap 6 mmol/L; Blood Urea Nitrogen 9 mg/dL (7-17); Calcium 8.5 mg/dL (8.4-10.2); Carbon Dioxide 26 mmol/L (22-30); Chloride 109 mmol/L (98-107); Glucose 128 mg/dL (74-99); Magnesium 2.1 mg/dL (1.6-2.3); Non-African American GFR(CKD) >90 (>60 ml/min/1.73 sqM); Potassium 3.6 mmol/L (3.5-5.1); Sodium 141 mmol/L (137-145); Total Bilirubin 0.2 mg/dL (0.2-1.3); Total Protein 5.8 g/dL (6.3-8.2)
--- NOTE | 2023-04-13 13:46 | XR ---
EXAMINATION TYPE: XR chest 2V DATE OF EXAM: 04/13/2023 COMPARISON: 08/03/2021 HISTORY: Shortness of breath TECHNIQUE: Frontal and lateral views of the chest are obtained. FINDINGS: Scattered senescent parenchymal changes noted. Hyperinflation compatible with COPD. No evidence for infiltrate. No evidence for atelectasis. Heart size is stable. Mediastinal structures are stable and grossly unremarkable. No evidence for hilar prominence. Degenerative changes dorsal spine. IMPRESSION: 1. No evidence for acute pulmonary disease.
--- NOTE | 2023-04-13 13:55 | CT ---
EXAMINATION TYPE: CT brain wo con DATE OF EXAM: 04/13/2023 COMPARISON: None HISTORY: Dizziness, weakness CT DLP: 1103.[address] of the brain was performed. The ventricles, basal cisterns and sulci overlying the cerebral convexities demonstrate mild enlargem ent. Left temporal remote insult noted with encephalomalacia seen. There is no evidence for intracranial hemorrhage or sulcal effacement. There is decreased attenuation about the periventricular white matter and deep white matter of both c erebral hemispheres, compatible with chronic small vessel ischemia. Differential diagnosis does inclu de demyelination. No mass effects are seen.No midline shift. Osseous calvarium is intact. If symptoms persist consider MRI. IMPRESSION: 1. Age related atrophic and chronic small vessel ischemic change without acute intracranial process s een at this time.
[2023-04-13 14:07] VITALS: BP 118/83; PULSE 69; RESP 15
[2023-04-13 14:50] LABS: Appearance,Urine Clear (Clear); Bilirubin,Urine Negative (Negative); Blood,Urine Negative (Negative); Color,Urine Yellow; Glucose,Urine (UA) Negative (Negative); Ketones,Urine Negative (Negative); Leukocyte Esterase,Urine Negative (Negative); Nitrite,Urine Negative (Negative); Protein,Urine Negative (Negative); Specific Gravity,Urine 1.015 (1.001-1.035)
[2023-04-13] MEDS ORDERED: ASPIRIN-ACET-CAFF 250-250-65MG 1 EACH TAB PO STA (15:05)
[2023-04-13] MEDS ORDERED: KETOROLAC 15 MG/ML 1 ML VIAL IVP STA (15:11)
== END 2023-04-13 16:16 | disposition home or self-care (01) ==
LOC: EC 11:56
DX: R53.1 Weakness (principal); R51.9 Headache, unspecified; F17.290 Nicotine dependence, other tobacco product, uncomplicated; F12.90 Cannabis use, unspecified, uncomplicated; J44.9 Chronic obstructive pulmonary disease, unspecified; E78.5 Hyperlipidemia, unspecified; F41.9 Anxiety disorder, unspecified; Z79.01 Long term (current) use of anticoagulants; Z79.899 Other long term (current) drug therapy; Z86.73 Personal history of transient ischemic attack (TIA), and cerebral infarction without residual deficits; Z88.5 Allergy status to narcotic agent; Z91.018 Allergy to other foods; Z91.09 Other allergy status, other than to drugs and biological substances
CPT/HCPCS: 36415; 70450; 71046; 80053; 81003; 83605; 83735; 84484; 85025; 85610; 85730; 93005; 99285

== ENCOUNTER → 2023-12-10 | Outpatient (CLI) | payer MEDICARE, OTHER ==
--- NOTE | 2023-12-10 14:00 | P.PAINPG ---
PQRS Measure Charge Sheet Comment: A 52 yr old female with a history of severe and chronic LBP secondary to lumbar DDD and spondylosis with facet arthropathy without myelopathy presents today for evaluation. Pt states pain is provoked at 9/10 in intensity, predominantly axial, sore in character w occasional radiation towards the LEs. Pain is provoked w over activity. Pain is allevaited by physician guided home PT since 2022 (when pt had CVA), ice, medications (Ibu), repositioning and rest. Oswestry axial pain score of 28. Interventional pain procedures completed include DARCY L3-L4 x1, L4-L5 x1 Medications include Patient denies any side effects of the medication(s), denies excessive drowsiness or sleepiness, denies suicidal ideation and reports that the current pain medication is helping to control the pain and improve activities of daily living. Patient denies any motor or sensory deficits. Patient denies any fever or night sweats, denies any change in the bowel movements or urination. Physical Examination: -Constitutional: Cooperative. Not in acute distress . - Neurologic: Cranial nerve II to XII intact. No focal neurological deficits. - Psychatric: Alert & oriented x 3. Matching mood & appropriate affect. Judgment and insight intact. - Musculoskeletal: no Motor or sensory deficit Cervical spine: Muscle bulk/ tone/ strength in the bilateral upper extremities normal Vertebral body tenderness to palpation over Spurling test positive Distraction test positive Facet loading test positive TTP Thoracic spine Muscle bulk / tone/ strength in the bilateral paraspinal muscles normal Vertebral body tender to palpation over Facet loading test positive TTP Lumbar spine: Motor bulk/ tone/ strength lower extremities , thigh and legs : 5/5 Deep tendon reflexes : Normal Knee Jerk. Normal Ankle Jerk . Vertebral body tenderness to palpation over Lyle Test positive Lumbar Facet Loading Test positive Straight Leg Raise: positive at 30 degrees right side/ left side Gaenslen's Test positive Sacral spine : Severe tenderness over the Sacroiliac joint: right side / left side Range of motion: Flexion of the lumbar spine <60 degrees Range of motion: Extension of the lumbar spine <20 degrees Gaenslen's Test positive right side / left side Raysa test: positive right side / left side Thigh Thrust Test positive right side / left side Sacral Thrust Test positive right side / left side Imaging: Lumbar CT non contrast from 2020 reviewed Assessment and plan: Chronic LBP secondary to lumbar DDD, spondylosis with facet arthropathy without myelopathy Recommendation of lumbar x ray M51.36 . May need additional imaging if indicated. All questions answered. Chronic and current use of high-risk medication (Opioids). The patient was counseled about risk of opioid use, psychological risk associated with opioids and was orally counseled to not overuse , divert or sell medications. Pt is to store medication in a safe location. The patient is counseled against driving while using narcotic medications and also not to use alcohol or any illicit recreational drugs. Patient verbalized understanding that the lack of compliance will result in failure to renew narcotic prescription(s) as well as possible discharge from the clinic Diagnoses, prognosis and treatment options including but not limited to physical therapy, surgical interventions, interventional therapies and medication management including narcotics and adjuvant medication were discussed. All patient questions answered MAPS reviewed and it was appropriate. Prescription for [place] 5/325mg #15 Use, side effects, adverse reactions and safe storage discussed. Acknowledged understanding. I have spent less than 30 minutes on patient care today. Dr Mason was available by phone for the evaluation of this patient. The time was used to review the medical records including relevant urine studies and Prescription history (MAPs), review of the available imaging, evaluation and examination of the patient, coordination of care with the medical staff and if applicable referring physicians, as well as creation of the medical record PQRS Narrative: Smoking Status Current every day smoker Hx Alcohol Use (MH) No Home Medications: Ambulatory Orders Atorvastatin Calcium [Lipitor] 20 mg PO HS 10/13/20 Fluticasone/Umeclidin/Vilanter [Trelegy Ellipta 200-62.5-25] 1 puff INHALATION RT-DAILY 06/24/21 ARIPiprazole [Abilify] 5 mg PO HS 10/06/22 Apixaban [Eliquis] 5 mg PO BID 10/06/22 Ibuprofen 600 mg PO BID PRN 10/06/22 Terbinafine [LamISIL] 250 mg PO DAILY 10/06/22 Nitroglycerin Sl Tabs [Nitrostat] 0.4 mg SUBLINGUAL Q5M PRN 11/24/22 Dextroamphetamine/Amphetamine [Adderall] 10 mg PO BID@0900,1300 04/13/23 Spironolactone [Aldactone] 50 mg PO DAILY 04/13/23 Yuperli 175mcg/3ml Solution 175 mcg INHALATION RT-DAILY 04/13/23 HYDROcodone/APAP 5-325MG [[place] 5-325] 1 tab PO Q4HR PRN 3 Days #15 tab 12/10/23 Controlled Substance Measures - Controlled Substance Measures Is patient prescribed a controlled substance at discharge?: Yes When asked, does pt state using other controlled substances?: No If prescribed controlled substance>3 days was MAPS reviewed?: Prescribed <3 Days
[2023-12-10 14:04] VITALS: BP 138/98; PULSE 86; RESP 15; TEMP 98.3
== END ==
LOC: PNWHC3 13:21
PROVIDERS: ATTEND Specialist
DX: M51.16 Intervertebral disc disorders with radiculopathy, lumbar region (principal); M47.26 Other spondylosis with radiculopathy, lumbar region; G89.29 Other chronic pain; G95.89 Other specified diseases of spinal cord; F90.9 Attention-deficit hyperactivity disorder, unspecified type; K21.9 Gastro-esophageal reflux disease without esophagitis; F31.78 Bipolar disorder, in full remission, most recent episode mixed; J44.89 Other specified chronic obstructive pulmonary disease; J45.31 Mild persistent asthma with (acute) exacerbation; M50.10 Cervical disc disorder with radiculopathy, unspecified cervical region; E11.40 Type 2 diabetes mellitus with diabetic neuropathy, unspecified; F17.200 Nicotine dependence, unspecified, uncomplicated; G43.901 Migraine, unspecified, not intractable, with status migrainosus; G44.89 Other headache syndrome; M19.90 Unspecified osteoarthritis, unspecified site; M41.86 Other forms of scoliosis, lumbar region; G47.00 Insomnia, unspecified; E78.00 Pure hypercholesterolemia, unspecified; I48.0 Paroxysmal atrial fibrillation; M81.0 Age-related osteoporosis without current pathological fracture; I10 Essential (primary) hypertension; E66.01 Morbid (severe) obesity due to excess calories; G47.33 Obstructive sleep apnea (adult) (pediatric); I95.1 Orthostatic hypotension; Z86.79 Personal history of other diseases of the circulatory system; Z68.38 Body mass index [BMI] 38.0-38.9, adult; Z91.09 Other allergy status, other than to drugs and biological substances; Z88.5 Allergy status to narcotic agent; Z91.018 Allergy to other foods; Z79.01 Long term (current) use of anticoagulants; Z79.51 Long term (current) use of inhaled steroids; Z79.899 Other long term (current) drug therapy
CPT/HCPCS: 99211

== ENCOUNTER → 2023-12-10 | Outpatient (CLI) | payer MEDICARE, OTHER ==
--- NOTE | 2023-12-11 15:54 | XR ---
EXAMINATION TYPE: XR lumbar spine 2 or 3V DATE OF EXAM: 12/10/2023 Comparison: 12/29/2020 Clinical History: 52-year-old female M51.36OTHER INTERVERTEBRAL DISC DEGENERATION, LUMB Findings: IVC filter. Cholecystectomy clips. There is a levoconvex curvature at the thoracolumbar junction. Mod erate multilevel degenerative disc disease and endplate spondylosis. Moderate facet arthropathy is pr esent throughout, more moderate to severe in the lower lumbar spine. Vertebral body heights are prese rved and alignment is maintained.-In the lower thoracic spine. Impression: 1. Moderate multilevel degenerative disc disease. 2. Moderate to advanced hypertrophic facet arthropathy especially lower lumbar spine. 3. DISH in the lower thoracic spine.
== END | disposition home or self-care (01) ==
LOC: RADXRMAIN 14:15
PROVIDERS: ATTEND Physician Assistant Medical
DX: M51.36 Other intervertebral disc degeneration, lumbar region (principal); M47.816 Spondylosis without myelopathy or radiculopathy, lumbar region; M48.16 Ankylosing hyperostosis [Forestier], lumbar region
CPT/HCPCS: 72100

== ENCOUNTER → 2023-12-28 | Outpatient (CLI) | payer MEDICARE, OTHER ==
--- NOTE | 2023-12-29 20:58 | MR ---
EXAMINATION TYPE: MR lumbar spine wo con DATE OF EXAM: 12/28/2023 11:43 AM CLINICAL INDICATION:Female, 52 years old with history of M51.36 LUMBAR DDD; Low back pain into left b uttocks COMPARISON: 12/10/2023 TECHNIQUE: Multi planar, multi sequence imaging was performed utilizing: T1-weighted, T2-weighted, a nd turbo inversion recovery imaging of the lumbar spine. IV Contrast: (None if empty) FINDINGS: Alignment: The lumbar vertebral bodies have preserved heights and alignment. Cord: The conus medullaris and the distal spinal cord appear unremarkable with regards to their signa l intensity and morphology. Bones/Discs: Degeneration changes worse at L2-L3 adjoining endplates with Schmorl's node in the super ior endplate of L3. Mild reactive edema within the L2 and to lesser extent the L3 vertebral bodies. M ultilevel disc desiccation is present. T12-L1: No evidence of significant spinal canal stenosis or neural foraminal stenosis. L1-L2: No evidence of significant spinal canal stenosis or neural foraminal stenosis. L2-L3: No evidence of significant spinal canal stenosis or neural foraminal stenosis. L3-L4: Central and left central disc protrusion with mild effacement of the ventral subarachnoid spac e. Facet joint arthropathy with moderate bilateral neural foraminal stenosis. Extraforaminal osteophy te formation which displaces the left exiting nerve series 601 image 18. L4-L5: No evidence of significant spinal canal stenosis. Facet joint arthropathy mild bilateral neura l foraminal stenosis. L5-S1: The disc is rounded posterior morphology without significant spinal canal stenosis. Facet join t arthropathy with mild bilateral neural foraminal stenosis. No significant spinal canal or neural foraminal stenosis in the remainder of the visualized levels. Other findings: None. IMPRESSION: 1. No definitive evidence of significant spinal canal stenosis. 2. Multilevel disc degeneration with associated osteoarthritic changes worse at the adjoining L2-L3 endplates. 3. L2-L3 central disc protrusion which mildly narrows the spinal canal/ventral subarachnoid space. 4. L2-L3 left extraforaminal osteophyte formation with displaces the exiting L2-L3 left nerve.
== END | disposition home or self-care (01) ==
LOC: RADMRIMAIN 10:39
PROVIDERS: ATTEND Specialist
DX: M51.36 Other intervertebral disc degeneration, lumbar region (principal); M51.26 Other intervertebral disc displacement, lumbar region; M25.78 Osteophyte, vertebrae
CPT/HCPCS: 72148

== ENCOUNTER → 2024-01-07 | Outpatient (CLI) | payer MEDICARE, OTHER ==
[2024-01-07 13:40] VITALS: BP 110/76; PULSE 76; RESP 16; TEMP 97.1
--- NOTE | 2024-01-07 15:20 | P.PAINPG ---
PQRS Measure Charge Sheet Comment: A 53 yr old female with a history of severe and chronic LBP secondary to lumbar DDD and spondylosis with facet arthropathy without myelopathy presents today for evaluation. Pt states pain is provoked at 7 /10 in intensity, predominantly axial, sore in character w occasional radiation towards the LEs. Pain is provoked w over activity. Pain is alleviated by physician guided home PT since 2022 (when pt had CVA), ice, medications, repositioning and rest. Oswestry axial pain score of 28. Interventional pain procedures completed include DARCY L3-L4 x1, L4-L5 x1 Medications include Ibu Patient denies any side effects of the medication(s), denies excessive drowsiness or sleepiness, denies suicidal ideation and reports that the current pain medication is helping to control the pain and improve activities of daily living. Patient denies any motor or sensory deficits. Patient denies any fever or night sweats, denies any change in the bowel movements or urination. Physical Examination: -Constitutional: Cooperative. Not in acute distress . - Neurologic: Cranial nerve II to XII intact. No focal neurological deficits. - Psychatric: Alert & oriented x 3. Matching mood & appropriate affect. Judgment and insight intact. - Musculoskeletal: no Motor or sensory deficit Cervical spine: Muscle bulk/ tone/ strength in the bilateral upper extremities normal Vertebral body tenderness to palpation over Spurling test positive Distraction test positive Facet loading test positive TTP Thoracic spine Muscle bulk / tone/ strength in the bilateral paraspinal muscles normal Vertebral body tender to palpation over Facet loading test positive TTP Lumbar spine: Motor bulk/ tone/ strength lower extremities , thigh and legs : 5/5 Deep tendon reflexes : Normal Knee Jerk. Normal Ankle Jerk . Vertebral body tenderness to palpation over L2 Lyle Test positive BL L2-L3 Lumbar Facet Loading Test positive Straight Leg Raise: positive at 30 degrees right side/ left side Gaenslen's Test positive Sacral spine : Severe tenderness over the Sacroiliac joint: right side / left side Range of motion: Flexion of the lumbar spine <60 degrees Range of motion: Extension of the lumbar spine <20 degrees Gaenslen's Test positive right side / left side Raysa test: positive right side / left side Thigh Thrust Test positive right side / left side Sacral Thrust Test positive right side / left side Imaging: Lumbar CT non contrast from 2020 reviewed MRI non contrast of the lumbar spine from 12/28/23 reviewed showing L2-3 disc protrusion Assessment and plan: Chronic LBP secondary to lumbar DDD, spondylosis with facet arthropathy without myelopathy Recommendation of DARCY L2-L3 #1. May need a series of injections for optimal pain relief. Risks, benefits of procedure discussed and pt verbalized understanding. Protocol for discontinuation/ continuation of medications joel procedure discussed. All questions answered. Chronic and current use of high-risk medication (Opioids). The patient was counseled about risk of opioid use, psychological risk associated with opioids and was orally counseled to not overuse , divert or sell medications. Pt is to store medication in a safe location. The patient is counseled against driving while using narcotic me dications and also not to use alcohol or any illicit recreational drugs. Patient verbalized understanding that the lack of compliance will result in failure to renew narcotic prescription(s) as well as possible discharge from the clinic Diagnoses, prognosis and treatment options including but not limited to physical therapy, surgical interventions, interventional therapies and medic ation management including narcotics and adjuvant medication were discussed. All patient questions answered MAPS reviewed and it was appropriate. I have spent less than 30 minutes on patient care today. Dr Mason was available by phone for the evaluation of this patient. The time was used to review the medical records including relevant urine studies and Prescription history (MAPs), review of the available imaging, evaluation and examination of the patient, coordination of care with the medical staff and if applicable referring physicians, as well as creation of the medical record - Pain Location Bilateral Lower Back Non-Pharmacological Interventions: Ice Pharmacological Interventions: PRN Medication, Scheduled Medication PQRS Narrative: Smoking Status Current every day smoker Hx Alcohol Use (MH) No Home Medications: Ambulatory Orders Atorvastatin Calcium [Lipitor] 20 mg PO HS 10/13/20 Fluticasone/Umeclidin/Vilanter [Trelegy Ellipta 200-62.5-25] 1 puff INHALATION RT-DAILY 06/24/21 ARIPiprazole [Abilify] 5 mg PO HS 10/06/22 Apixaban [Eliquis] 5 mg PO BID 10/06/22 Ibuprofen 600 mg PO BID PRN 10/06/22 Terbinafine [LamISIL] 250 mg PO DAILY 10/06/22 Nitroglycerin Sl Tabs [Nitrostat] 0.4 mg SUBLINGUAL Q5M PRN 11/24/22 Dextroamphetamine/Amphetamine [Adderall] 10 mg PO BID@0900,1300 04/13/23 Spironolactone [Aldactone] 50 mg PO DAILY 04/13/23 Yuperli 175mcg/3ml Solution 175 mcg INHALATION RT-DAILY 04/13/23 HYDROcodone/APAP 5-325MG [[place] 5-325] 1 tab PO Q4HR PRN 3 Days #15 tab 01/07/24 Controlled Substance Measures - Controlled Substance Measures Is patient prescribed a controlled substance at discharge?: Yes When asked, does pt state using other controlled substances?: No If prescribed controlled substance>3 days was MAPS reviewed?: Prescribed <3 Days
== END ==
LOC: PNWHC3 12:37
PROVIDERS: ATTEND Specialist
DX: M51.36 Other intervertebral disc degeneration, lumbar region (principal); M47.816 Spondylosis without myelopathy or radiculopathy, lumbar region; G89.29 Other chronic pain; F17.200 Nicotine dependence, unspecified, uncomplicated; Z79.891 Long term (current) use of opiate analgesic; Z91.09 Other allergy status, other than to drugs and biological substances; Z91.018 Allergy to other foods; Z88.5 Allergy status to narcotic agent
CPT/HCPCS: 99211

== ENCOUNTER → 2024-01-21 | Day surgery (SDC) | payer MEDICARE, OTHER ==
[2024-01-20 10:18] VITALS: BMI 34.8
[~2024-01-21] MED LIST: LACTATED RINGERS 1,000 ML IV SCH
[2024-01-21 13:14] VITALS: BP 142/84; PULSE 81; RESP 19; TEMP 97.2
--- NOTE | 2024-01-21 14:12 | P.PN ---
Progress Note - Text Progress Note Date: 01/21/24 This is 53 years old female with a chronic severe low back pain, secondary to lumbar degenerative disc disease, and lumbar spondylosis with lumbar facet arthropathy, she was scheduled to have lumbar epidural steroid injection at L2-3 levels,today in the preop holding area, I was discussing with the patient risk and benefit of the procedure, I found out, that the patient ,last dose of Eliquis was taken around 48 hours ago, and per T[place]URC[place] ([place] [employer] pain [employer]) recommendation we have to hold Eliquis for 72 hours ,before the procedure, for this reason the procedure was canceled today ,and patient will be rescheduled ,to have lumbar epidural steroid injecti on near future ,and she has to hold Eliquis for 72 hours.
== END ==
LOC: ORPAIN 12:26
PROVIDERS: ATTEND Specialist
DX: Z53.8 Procedure and treatment not carried out for other reasons (principal); M51.36 Other intervertebral disc degeneration, lumbar region; M47.816 Spondylosis without myelopathy or radiculopathy, lumbar region; Z79.01 Long term (current) use of anticoagulants

== ENCOUNTER 2024-02-04 10:59 | Day surgery (SDC) | payer MEDICARE, OTHER ==
[2024-02-04 11:26] VITALS: RESP 18; TEMP 97.5
[2024-02-04] MEDS ORDERED: LACTATED RINGERS 1,000 ML IV SCH (12:00)
[2024-02-04] MEDS ORDERED: TRIAMCINOLONE ACETONIDE 40 MG/ML 1 ML VIAL ONE (12:12)
[2024-02-04] MEDS ORDERED: IOPAMIDOL M200 10 ML VIAL ONE (12:12)
--- NOTE | 2024-02-04 12:24 | P.PCN ---
Date of Procedure: 02/04/24 Description of Procedure: Date of Procedure: 11/27/22 Description of Procedure: Procedure: 1. L2-L3 Epidural steroid injection under fluoroscopic guidance 2. Lumbar epidurogram PREOPERATIVE DIAGNOSIS: Lumbar degenerative disc disease, and Lumbar radiculopa thy, Lumbar spinal stenosis POSTOPERATIVE DIAGNOSIS: Lumbar degenerative disc disease, and Lumbar radiculopathy, Lumbar spinal stenosis SURGEON: Chris Jacob MD ANESTHESIA: Local with 1% lidocaine EBL: None. Specimen removed: None Fluoroscopic image: saved to electronic medical records PROCEDURE INDICATION: The patient had history of Lumbar degenerative disc disease and Lumbar radiculopathy. Failed to conservative therapy. Presented for epidural steroid injection. patient has been off her eliquis for greater than 4 days. I instructed patient to not restart eliquis for 24 hours PROCEDURE DESCRIPTION: The patient was seen and identified in the preoperative area. Risks, benefits, complications, and alternatives were discussed with the patient. The patient agreed to proceed with the procedure and signed the consent. IV was started, and vital signs were stable. Patient was taken to the procedure area, and time out was completed. The patient was placed in the prone position on procedure table and a pillow was placed under the abdomen to reduce lumbar lordosis. The lumbosacral area was prepped and draped in the usual sterile fashion. Critical pause was taken. Vital signs were closely monitored during the procedure. Using anterior-posterior fluoroscopy, the L2-L3 interlaminar space was identified, and skin and deeper tissues were localized with 1% lidocaine. Using anterior-posterior fluoroscopy, lateral fluoroscopy, and quue-be-mbyrxhpmiy technique, a 20 gauge 3.5 Tuohy epidural needle entered the epidural space. After negative aspiration of CSF and blood with no paresthesias, 2ml of [id number] contrast dye was injected and an excellent epidurogram was seen. Again after negative aspiration of CSF and blood with no paresthesias, 8 mL of block solution was injected into the epidural space. Block solution contained 40mg Kenalog, and 4 mL of preservative-free normal saline. Needle was withdrawn intact, skin was cleansed, and bandages were applied. COMPLICATIONS: None. DISPOSITION / PLANS: The patient was placed in a supine position and transferred to the recovery area in a stable condition for observation. Patient was discharged from the recovery room after meeting discharge criteria. Home discharge instructions given to the patient by the staff. The patient was reexamined prior to discharge. The patient will schedule a follow up in the clinic in 4 weeks.
[2024-02-04 12:55] VITALS: BP 130/75; PULSE 82
--- NOTE | 2024-02-04 16:38 | FL ---
EXAMINATION TYPE: FL guided pain mgmt statistic DATE OF EXAM: 02/04/2024 FLUOROSCOPY Fluoroscopy time of 11.2 seconds was used during lumbar epidural steroid injection. 2 image/s docume nt/s the procedure. DAP 0.95051 mGycm2.
== END 2024-02-04 12:45 | disposition home or self-care (01) ==
LOC: ORPAIN 10:59
PROVIDERS: ATTEND Anesthesiology
DX: M51.16 Intervertebral disc disorders with radiculopathy, lumbar region (principal); M48.061 Spinal stenosis, lumbar region without neurogenic claudication; Z88.0 Allergy status to penicillin; Z88.5 Allergy status to narcotic agent; Z91.018 Allergy to other foods; Z90.710 Acquired absence of both cervix and uterus; Z79.01 Long term (current) use of anticoagulants
CPT/HCPCS: 62323; J3301; Q9966

== ENCOUNTER → 2024-02-25 | Outpatient (CLI) | payer MEDICARE, OTHER ==
[2024-02-25 13:09] VITALS: BP 168/88; PULSE 98; RESP 15; TEMP 97.9
--- NOTE | 2024-02-25 14:50 | P.PAINPG ---
PQRS Measure Charge Sheet Comment: A 53 yr old female with a history of severe and chronic LBP secondary to lumbar DDD and spondylosis with facet arthropathy without myelopathy presents today for evaluation s/p DARCY L2-L3 #1. Pt states she experienced 85 % pain relief x 3 wks s/p procedure. Pt states pain is provoked at 2 /10 in intensity, predominantly axial, sore in character w occasional radiation towards the LEs. Pain is provoked w over activity. Pain is alleviated by physician guided home PT since 2022 (when pt had CVA), ice, medications, repositioning and rest. Oswestry axial pain score of 28. Interventional pain procedures completed include DARCY L3-L4 x1, L4-L5 x1, DARCY L2- L3 x1 Medications include Ibu Patient denies any side effects of the medication(s), denies excessive drowsiness or sleepiness, denies suicidal ideation and reports that the current pain medication is helping to control the pain and improve activities of daily living. Patient denies any motor or sensory deficits. Patient denies any fever or night sweats, denies any change in the bowel movements or urination. Physical Examination: -Constitutional: Cooperative. Not in acute distress . - Neurologic: Cranial nerve II to XII intact. No focal neurological deficits. - Psychatric: Alert & oriented x 3. Matching mood & appropriate affect. Judgment and insight intact. - Musculoskeletal: no Motor or sensory deficit Cervical spine: Muscle bulk/ tone/ strength in the bilateral upper extremities normal Vertebral body tenderness to palpation over Spurling test positive Distraction test positive Facet loading test positive TTP Thoracic spine Muscle bulk / tone/ strength in the bilateral paraspinal muscles normal Vertebral body tender to palpation over Facet loading test positive TTP Lumbar spine: Motor bulk/ tone/ strength lower extremities , thigh and legs : 5/5 Deep tendon reflexes : Normal Knee Jerk. Normal Ankle Jerk . Vertebral body tenderness to palpation over L2 Lyle Test positive BL L2-L3 Lumbar Facet Loading Test positive Straight Leg Raise: positive at 30 degrees right side/ left side Gaenslen's Test positive Sacral spine : Severe tenderness over the Sacroiliac joint: right side / left side Range of motion: Flexion of the lumbar spine <60 degrees Range of motion: Extension of the lumbar spine <20 degrees Gaenslen's Test positive right side / left side Raysa test: positive right side / left side Thigh Thrust Test positive right side / left side Sacral Thrust Test positive right side / left side Imaging: Lumbar CT non contrast from 2020 reviewed MRI non contrast of the lumbar spine from 12/28/23 reviewed showing L2-3 disc protrusion Assessment and plan: Chronic LBP secondary to lumbar DDD, spondylosis with facet arthropathy without myelopathy Will manage residual pain and may RTC on an as needed basis. All questions answered. I have spent less than 30 minutes on patient care today. Dr Mason was available by phone for the evaluation of this patient. The time was used to review the medical records including relevant urine studies and Prescription history (MAPs), review of the available imaging, evaluation and examination of the patient, coordination of care with the medical staff and if applicable referring physicians, as well as creation of the medical record PQRS Narrative: Smoking Status Current every day smoker Hx Alcohol Use (MH) No Home Medications: Ambulatory Orders Atorvastatin Calcium [Lipitor] 20 mg PO HS 10/13/20 Fluticasone/Umeclidin/Vilanter [Trelegy Ellipta 200-62.5-25] 1 puff INHALATION DAILY 06/24/21 ARIPiprazole [Abilify] 5 mg PO HS 10/06/22 Apixaban [Eliquis] 5 mg PO BID 10/06/22 Ibuprofen 600 mg PO BID 10/06/22 Nitroglycerin Sl Tabs [Nitrostat] 0.4 mg SUBLINGUAL Q5M PRN 11/24/22 Dextroamphetamine/Amphetamine [Adderall] 10 mg PO BID@0900,1300 04/13/23 Spironolactone [Aldactone] 50 mg PO QAM 04/13/23 traZODone HCL 100 mg PO HS PRN 01/20/24 Furosemide [Lasix] 20 mg PO QAM 02/01/24 Potassium Chloride 10 meq PO DAILY 02/01/24 Controlled Substance Measures - Controlled Substance Measures Is patient prescribed a controlled substance at discharge?: No
== END ==
LOC: PNWHC3 10:20
PROVIDERS: ATTEND Specialist
DX: M51.36 Other intervertebral disc degeneration, lumbar region (principal); M47.816 Spondylosis without myelopathy or radiculopathy, lumbar region; F17.200 Nicotine dependence, unspecified, uncomplicated; Z91.09 Other allergy status, other than to drugs and biological substances; Z88.5 Allergy status to narcotic agent; Z91.018 Allergy to other foods
CPT/HCPCS: 99211

== ENCOUNTER → 2024-06-13 | Outpatient (CLI) | payer MEDICARE, OTHER ==
[2024-06-13 14:08] VITALS: BP 130/92; PULSE 92; RESP 16; TEMP 97.6
--- NOTE | 2024-06-13 15:13 | P.PAINPG ---
PQRS Measure Charge Sheet Comment: A 53 yr old female with a history of severe and chronic LBP secondary to radiculopathy, spondylosis and facet arthropathy without myelopathy presents today for evaluation. Pt states pain is provoked at 10 /10 in intensity, predominantly axial, sore in character w occasional radiation towards the back of the LLE. Pain is provoked w over activity. Pain is alleviated by physician guided home PT since 2022 (when pt had R hemiplegia), ice, medications, repositioning and rest. Interventional pain procedures completed include DARCY L3-L4 x1, L4-L5 x1, DARCY L2- L3 x1 Medications include Ibu Patient denies any side effects of the medication(s), denies excessive drowsiness or sleepiness, denies suicidal ideation and reports that the current pain medication is helping to control the pain and improve activities of daily living. Patient denies any motor or sensory deficits. Patient denies any fever or night sweats, denies any change in the bowel movements or urination. Physical Examination: -Constitutional: Cooperative. Not in acute distress . - Neurologic: Cranial nerve II to XII intact. No focal neurological deficits. - Psychatric: Alert & oriented x 3. Matching mood & appropriate affect. Judgment and insight intact. - Musculoskeletal: no Motor or sensory deficit Cervical spine: Muscle bulk/ tone/ strength in the bilateral upper extremities normal Vertebral body tenderness to palpation over Spurling test positive Distraction test positive Facet loading test positive TTP Thoracic spine Muscle bulk / tone/ strength in the bilateral paraspinal muscles normal Vertebral body tender to palpation over Facet loading test positive TTP Lumbar spine: Motor bulk/ tone/ strength lower extremities , thigh and legs : 5/5 Deep tendon reflexes : Normal Knee Jerk. Normal Ankle Jerk . Vertebral body tenderness to palpation over L3 Lyle Test positive BL L3-4 Lumbar Facet Loading Test positive Straight Leg Raise: positive at 30 degrees right side/ left side Gaenslen's Test positive Sacral spine : Severe tenderness over the Sacroiliac joint: right side / left side Range of motion: Flexion of the lumbar spine <60 degrees Range of motion: Extension of the lumbar spine <20 degrees Gaenslen's Test positive right side / left side Raysa test: positive right side / left side Thigh Thrust Test positive right side / left side Sacral Thrust Test positive right side / left side Imaging: Lumbar CT non contrast from 2020 reviewed MRI non contrast of the lumbar spine from 12/28/23 reviewed showing L3-4 disc protrusion Assessment and plan: Chronic LBP secondary to L3-L4 disc radiculopathy, spondylosis and facet arthropathy without myelopathy Recommendation of DARCY L3-L4 #2. Risks, benefits of procedure discussed and pt verbalized understanding. Pt's caregiver was in the lobby but entered the room during visit. Medical clearance for Eliquis on file. All parties acknowledged understanding. All questions answered. I have spent less than 30 minutes on patient care today. Dr Mason was available by phone for the evaluation of this patient. The time was used to review the medical records including relevant urine studies and Prescription history (MAPs), review of the available imaging, evaluation and examination of the patient, coordination of care with the medical staff and if applicable referring physicians, as well as creation of the medical record PQRS Narrative: Smoking Status Current every day smoker Hx Alcohol Use (MH) No Home Medications: Ambulatory Orders Atorvastatin Calcium [Lipitor] 20 mg PO HS 10/13/20 Fluticasone/Umeclidin/Vilanter [Trelegy Ellipta 200-62.5-25] 1 puff INHALATION DAILY 06/24/21 ARIPiprazole [Abilify] 5 mg PO HS 10/06/22 Apixaban [Eliquis] 5 mg PO BID 10/06/22 Ibuprofen 600 mg PO BID 10/06/22 Nitroglycerin Sl Tabs [Nitrostat] 0.4 mg SUBLINGUAL Q5M PRN 11/24/22 Dextroamphetamine/Amphetamine [Adderall] 10 mg PO BID@0900,1300 04/13/23 Spironolactone [Aldactone] 50 mg PO QAM 04/13/23 traZODone HCL 100 mg PO HS PRN 01/20/24 Furosemide [Lasix] 20 mg PO QAM 02/01/24 Potassium Chloride 10 meq PO DAILY 02/01/24 diazePAM [Valium] 5 mg PO DAILY PRN 1 Days #2 tab 06/13/24 Controlled Substance Measures - Controlled Substance Measures Is patient prescribed a controlled substance at discharge?: Yes When asked, does pt state using other controlled substances?: Yes If prescribed controlled substance>3 days was MAPS reviewed?: Prescribed <3 Days
== END ==
LOC: PNWHC3 13:27
PROVIDERS: ATTEND Specialist
DX: M54.16 Radiculopathy, lumbar region
CPT/HCPCS: 99211

== ENCOUNTER 2024-07-07 11:08 | Day surgery (SDC) | payer MEDICARE, OTHER ==
[2024-07-04 15:54] VITALS: BMI 33.7
[2024-07-07 11:36] VITALS: RESP 18; TEMP 97.4
--- NOTE | 2024-07-07 12:48 | P.PCN ---
Date of Procedure: 07/07/24 Procedure(s) Performed: PREOPERATIVE DIAGNOSIS: 1- Lumbar Degenerative Disc Diseases 2-Lumbar spondylosis with Facet arthropathy without myelopathy. 3-lumbar radiculopathy POSTOPERATIVE DIAGNOSIS: 1-lumbar degenerative disc disease. 2-lumbar spondylosis with facet arthropathy without myelopathy. 3-lumbar radiculopathy PROCEDURE 1. Lumbar epidural steroid injection under fluoroscopic guidance at the L3-4 level. (Fluoroscopy imaging was available in radiology department) 2. Lumbar epidurogram. ANESTHESIA: Lidocaine 1% 3 and then only. EBL: Minimal PROCEDURE INDICATION: The patient with low back pain and radiculitis symptoms unresponsive to conservative treatment. Fluoroscopy was used to optimize visualization of the needle placement and to maximize safety. PROCEDURE DESCRIPTION / TECHNIQUE: The patient was seen and identified in the preoperative area. Risks, benefits, complications including but not limited to infections ,bleeding ,allergic reaction to the medications ,nerve damage and not complete pain releife , and alternatives were discussed with the patient. The patient agreed to proceed with the procedure and signed the consent, and vital signs were stable. Patient was taken to the OR and time out was completed. The patient was placed in the prone position on procedure table and a pillow was placed under the abdomen to reduce lumbar lordosis. The lumbosacral area was prepped and draped in the usual sterile fashion.ere closely monitored during the procedure. Vital signs was monitered during the entire procedure. Using anterior-posterior fluoroscopy, the L3-4 interlaminar space was identified and the skin over this site was marked and then infiltrated with 1% lidocaine subcutaneously. Subsequently, a 20-gauge Tuohy epidural needle was inserted and advanced toward the epidural space using the ``Loss of resistance technique and guided by AP and lateral fluoroscopy. The correct needle position in the epidural space was verified with the injection of 2 mL of the water soluble contrast dye Isovue 200 contrast and observing an excellent epidurogram with the epidural spread of the dye, after negative aspiration for blood and CSF and in the absence of paresthesias. Again after negative aspiration, a 6 ml mixture containing 80 mg of Depo-medrol ( Preservetive Free ), and 2 ml of preservative free Normal Saline, and 2 ml of preservative free lidocaine 1% solution was injected and a washout of epidurogram was seen. Needle was withdrawn intact, skin was cleansed, and bandages were applied. COMPLICATIONS: None DISPOSITION / PLANS: The patient was placed in a supine position and transferred to the recovery area in a stable condition for observation. There was no evidence of lower extremity motor or sensory deficit after the procedure. Patient was discharged from the recovery room after meeting discharge criteria. Home discharge instructions were given to the patient by the staff. The patient was reexamined prior to discharge. The patient will schedule a follow up in the clinic in 2-4 weeks. Last dose of Eliquis was taken more than 3 days ago.
[2024-07-07 13:10] VITALS: BP 104/79; PULSE 83
--- NOTE | 2024-07-15 10:23 | FL ---
Fluoroscopy History: PAIN 3 sec [place] .630[address] DAP dose [facility], , 07/15/2024 10:21 AM
== END 2024-07-07 13:32 | disposition home or self-care (01) ==
LOC: ORPAIN 11:08
PROVIDERS: ATTEND Specialist
DX: M54.16 Radiculopathy, lumbar region
CPT/HCPCS: 62323

== ENCOUNTER → 2024-07-27 | Outpatient (CLI) | payer MEDICARE, OTHER ==
[2024-07-27 12:26] VITALS: BP 137/89; PULSE 83; RESP 16; TEMP 96.8
--- NOTE | 2024-07-27 14:37 | P.PAINPG ---
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 Pt states she experienced 100% pain relief x 3 wks s/p procedure. Pt states pain is provoked at 1 /10 in intensity, intermittent, predominantly axial, sore in character without radiation of pain. Pain is provoked w over activity. Pain is alleviated by physician guided home PT since 2022 (when pt had R hemiplegia), ice, medications, repositioning and rest. Interventional pain procedures completed include DARCY L3-L4 x2, L4-L5 x1, DARCY L2- L3 x1 Medications include Ibu Patient denies any side effects of the medication(s), denies excessive drowsiness or sleepiness, denies suicidal ideation and reports that the current pain medication is helping to control the pain and improve activities of daily living. Patient denies any motor or sensory deficits. Patient denies any fever or night sweats, denies any change in the bowel movements or urination. Physical Examination: -Constitutional: Cooperative. Not in acute distress . - Neurologic: Cranial nerve II to XII intact. No focal neurological deficits. - Psychatric: Alert & oriented x 3. Matching mood & appropriate affect. Judgment and insight intact. - Musculoskeletal: no Motor or sensory deficit Cervical spine: Muscle bulk/ tone/ strength in the bilateral upper extremities normal Vertebral body tenderness to palpation over Spurling test positive Distraction test positive Facet loading test positive TTP Thoracic spine Muscle bulk / tone/ strength in the bilateral paraspinal muscles normal Vertebral body tender to palpation over Facet loading test positive TTP Lumbar spine: Motor bulk/ tone/ strength lower extremities , thigh and legs : 5/5 Deep tendon reflexes : Normal Knee Jerk. Normal Ankle Jerk . Vertebral body tenderness to palpation over L3 Lyle Test positive BL L3-4 Lumbar Facet Loading Test positive Straight Leg Raise: positive at 30 degrees right side/ left side Gaenslen's Test positive Sacral spine : Severe tenderness over the Sacroiliac joint: right side / left side Range of motion: Flexion of the lumbar spine <60 degrees Range of motion: Extension of the lumbar spine <20 degrees Gaenslen's Test positive right side / left side Raysa test: positive right side / left side Thigh Thrust Test positive right side / left side Sacral Thrust Test positive right side / left side Imaging: Lumbar CT non contrast from 2020 reviewed MRI non contrast of the lumbar spine from 12/28/23 reviewed showing L3-4 disc protrusion Assessment and plan: Chronic LBP secondary to L3-L4 disc radiculopathy, spondylosis and facet arthropathy without myelopathy Will manage residual pain and may RTC on an as needed basis. All questions answered. I have spent less than 30 minutes on patient care today. Dr Mason was available by phone for the evaluation of this patient. The time was used to review the medical records including relevant urine studies and Prescription history (MAPs), review of the available imaging, evaluation and examination of the patient, coordination of care with the medical staff and if applicable referring physicians, as well as creation of the medical record PQRS Narrative: Smoking Status Current every day smoker Blood Pressure 137/89 Pain Intensity [Bilateral 0 Lower Back] Scale Used Numeric (1 - 10) Hx Alcohol Use (MH) No Home Medications: Ambulatory Orders Atorvastatin Calcium [Lipitor] 20 mg PO HS 10/13/20 Fluticasone/Umeclidin/Vilanter [Trelegy Ellipta 200-62.5-25] 1 puff INHALATION DAILY 06/24/21 ARIPiprazole [Abilify] 5 mg PO HS 10/06/22 Apixaban [Eliquis] 5 mg PO BID 10/06/22 Ibuprofen 600 mg PO BID 10/06/22 Nitroglycerin Sl Tabs [Nitrostat] 0.4 mg SUBLINGUAL Q5M PRN 11/24/22 Dextroamphetamine/Amphetamine [Adderall] 10 mg PO BID@0900,1300 04/13/23 Spironolactone [Aldactone] 50 mg PO QAM 04/13/23 traZODone HCL 100 mg PO HS PRN 01/20/24 Furosemide [Lasix] 20 mg PO QAM 02/01/24 Potassium Chloride 10 meq PO DAILY 02/01/24 diazePAM [Valium] 5 mg PO DAILY PRN 1 Days #2 tab 06/13/24 Controlled Substance Measures - Controlled Substance Measures Is patient prescribed a controlled substance at discharge?: No
== END ==
LOC: PNWHC3 12:03
PROVIDERS: ATTEND Specialist
CPT/HCPCS: 99211

== ENCOUNTER → 2024-12-08 | Outpatient (CLI) | payer MEDICARE, OTHER ==
--- NOTE | 2024-12-09 08:40 | BD ---
EXAMINATION TYPE: Axial Bone Density DATE OF EXAM: 12/08/2024 CLINICAL HISTORY: 53 years old Female. ICD-10 CODE: Z78.0 ASYMPTOMATIC MENOPAUSAL STATE , Additional History: Height: 66 Weight: 254.0 FRAX RISK QUESTIONS: Alcohol (3 or more units per day): no Family History (Parent hip fracture): no Glucocorticoids (More than 3mos): no (Ex: prednisone, prednisolone, methylprednisolone, dexamethasone, and hydrocortisone). History of Fracture in Adulthood: no Secondary Osteoporosis: 1. Type 1 Diabetes: no 2. Hyperthyroidism: no 3. Menopause before 45: yes 4. Malnutrition: no 5. Chronic liver disease: no Rheumatoid Arthritis: no Current Tobacco Use: yes RISK FACTORS HISTORY OF: Hip Fracture (Right/Left): no Spine Fracture: no History of Wrist Fracture: no Surgery to Spine/Hip(right/left)/Wrist (right/left): no MEDICATIONS: Thyroid Medications: no Osteoporosis Medications: no EXAM MEASUREMENTS: Bone mineral densitometry was performed using the [employer] System. Bone mineral density as measured about the Lumbar spine is: ----- L1-L4(G/cm2): 1.231 T Score Values are as follows: ----- L1: -1.1 ----- L2: 1.4 ----- L3: 2.2 ----- L4: -0.8 ----- L1-L4: 0.4 Z Score Values are as follows: ----- L1: -1.6 ----- L2: 1.0 ----- L3: 1.8 ----- L4: `-1.3 ----- L1-L4: 0.0 Bone mineral density has: increased 14.6 % since study of: 12/01/2022 Bone mineral density about the R hip (g/cm2): 0.857 Bone mineral density about the L hip (g/cm2): 0.886 T Score values are as follows: -----R Neck: -1.8 -----L Neck: -2.0 -----R Total: -1.2 -----L Total: -1.0 Z Score values are as follows: -----R Neck: -1.5 -----L Neck: -1.8 -----R Total: -1.4 -----L Total: -1.2 Bone mineral density has: decreased -6.7 % since study of: 12/01/2022 FRAX%s: The graph provided illustrates a 6.5% chance for a major osteoporotic fx and a 1.2% chance fo r the hips probability for fx in 10 years time. IMPRESSION: Osteopenia (T Score between -2.5 and -1). There is slightly increased risk of fracture and the patient may be considered for treatment. Re-Screen 2-5 years. NOTE: T-SCORE=SD OF THE YOUNG ADULT MEAN. [facility], , 12/09/2024 8:37 AM
== END | disposition home or self-care (01) ==
LOC: RADBDWWP 13:04
PROVIDERS: ATTEND Family Medicine
DX: M85.89 Other specified disorders of bone density and structure, multiple sites (principal); Z78.0 Asymptomatic menopausal state
CPT/HCPCS: 77080

== ENCOUNTER → 2025-01-02 | Outpatient (CLI) | payer MEDICARE, OTHER ==
--- NOTE | 2025-01-02 15:51 | MR ---
INDICATION: Patient age:Female; 54 years old; Reason for study: I62.9 NONTRAUMATIC INTRACRANIAL HEMORRHAGE G46.4; [facility]. COMPARISON: CT brain 04/13/2023, 01/29/2021, 01/15/2021, 12/03/2020, 10/13/2020, 09/13/2020, 08/31/2020, CTA head and neck 01/15/2021, 12/29/2020, MRI brain 01/31/2021, MRI brain/C-spine 09/14/2020. TECHNIQUE: Multi planar, multi sequence imaging was performed through the brain. The patient was then given 11.5 cc of Gadobutrol intravenously and multi planar, T1 fat-saturation images were obtained. FINDINGS: The melendez-white junctions, ventricular system, basal cisterns appear unremarkable. No extra-axial flui d collection identified. Age-appropriate cerebral parenchymal volume. Diffusion-weighted imaging show s no evidence of restricted diffusion to suggest acute/subacute infarct. Intracranial arterial flow v oids are maintained. Encephalomalacia within the bilateral temporal lobes from prior injury with left greater than right. There is associated gliosis. Midline structures show no abnormality. Stable 6 mm T2/FLAIR hyperintense focus within the high right posterior right frontal lobe just anterior to the central sulcus with additional stable 11 mm T2/FLAIR hyperintense focus within the right frontal lobe . These both demonstrate corresponding low T1 signal. No new suspicious FLAIR signal abnormalities. The susceptibility weighted images do not reveal any evidence for micro-hemorrhage. After administrat ion of gadolinium, no abnormal enhancement is seen. The bone marrow signal is within normal limits. The paranasal sinuses and globes are unremarkable. IMPRESSION: 1. No evidence of intracranial mass, acute/subacute infarct, or abnormal enhancement. 2. 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 3. There are 2 stable nonspecific white matter changes within the right frontal lobe likely related t o small vessel ischemic disease. [facility], , 01/02/2025 3:49 PM
== END | disposition home or self-care (01) ==
LOC: RADMRIMAIN 14:38
PROVIDERS: ATTEND Family Medicine
DX: I62.9 Nontraumatic intracranial hemorrhage, unspecified (principal); G46.4 Cerebellar stroke syndrome; G93.89 Other specified disorders of brain; R90.82 White matter disease, unspecified
CPT/HCPCS: 70553; A9585

== ENCOUNTER → 2025-03-14 | Outpatient (CLI) | payer MEDICARE, OTHER ==
[2025-03-14 15:53] LABS: Glucose 2 Hour 188 mg/dL
== END | disposition home or self-care (01) ==
LOC: LABWHC1 11:57
PROVIDERS: ATTEND Family Medicine
DX: Z51.81 Encounter for therapeutic drug level monitoring (principal); Z79.899 Other long term (current) drug therapy
CPT/HCPCS: 36415; 82947; 82950